=== PATIENT | female | born 1990 | race Caucasian/White ===

== ENCOUNTER 2021-04-19 17:51 | Emergency (ER) | payer OTHER, SELFPAY ==
[2021-04-19 17:57] VITALS: BP 137/49; PULSE 106; RESP 20; TEMP 37.1; O2SAT 96; BMI 17.4
== END 2021-04-19 21:00 | disposition left against medical advice (07) ==
PROVIDERS: Emergency Provider Emergency Medicine; PCP Pediatrics
DX: F10.129 Alcohol abuse with intoxication, unspecified (principal)
CPT/HCPCS: 99281; 99282

== ENCOUNTER 2021-04-21 10:34 | Emergency (ER) | payer OTHER, SELFPAY ==
[2021-04-21 10:53] VITALS: BP 140/71; PULSE 118; RESP 16; O2SAT 96; BMI 17.4
--- NOTE | 2021-04-21 11:04 | ED.ALCOHOL ---
HPI - Alcohol General Chief Complaint: General Medical Stated Complaint: ETOH Time Seen by Provider: 04/21/21 11:00 Source: patient Mode of arrival: ambulatory Limitations: no limitations History of Present Illness MD complaint: alcohol withdrawal, alcohol dependence and desires rehab Last drink: Hours (ago) Chronic alcohol use: Yes Previous visits for alcohol intoxication: Yes Recent trauma: No Associated symptoms: nausea and tremors Treatments prior to arrival: none Related Data Allergies Allergy/AdvReac Type Severity Reaction Status Date / Time No Known Allergies Allergy Unverified 07/18/20 17:35 Review of Systems Review of Systems: Constitutional : No Weight loss, No Fever, No Chills, No Fatigue, No Malaise ENT/Mouth : No sore throat, No Rhinorrhea Eyes: No Eye Pain, No Swelling, No Redness Cardiovascular : No Chest Pain, No SOB, No Dyspnea on Exertion, No Orthopnea, No Edema, No Palpitations Respiratory : No Cough, No Sputum, No Wheezing Gastrointestinal : pos Nausea, No Vomiting, No Diarrhea, No Constipation, No abdominal Pain, No Hematochezia, No Melena Genitourinary : No Dysuria, No Urinary Frequency, No Hematuria, Musculoskeletal : No joint pain, No Myalgias, No Joint Swelling Skin : No Skin Lesions, No rash Neuro : No Weakness, No Numbness, No Dizziness, No Headache Psych : pos Anxiety/Panic, No Depression Heme/Lymph: No Bruising, No Bleeding,No Lymphadenopathy Endocrine : No Polyuria, No Polydipsia All other systems reviewed and are negative PMFSH Past Medical History Attestation statement: The following information was validated with the patient. Medical History Alcoholism Depression Withdrawal seizures Social History Social History (Updated 04/21/21 @ 11:11 by Christy Knight DO) Alcohol intake: current Patient Tobacco Use Status: Never used Tobacco Advance Directives: No Advance Directives Information Provided: No Patient : No Physical Exam Vital Signs: Vital Signs: Last Vital Signs Pulse 118 H 04/21/21 10:53 Resp 16 04/21/21 10:53 BP 140/71 H 04/21/21 10:53 Pulse Ox 96 04/21/21 10:53 Body Mass Index 17.4 Appearance: Alert. Oriented X3. No acute distress. Anxious Eyes: Pupils equal, round and reactive to light. ENT: Pharynx normal. Neck: Normal inspection. Neck supple. CVS: tachcyardic heart rate and rhythm. Pulses normal. Respiratory: No respiratory distress. Breath sounds normal. Abdomen: Soft and non-tender. Skin: Skin warm and dry. Normal skin color. Normal skin turgor. Extremities: No lower extremity edema. No calf ttp Neuro: Oriented X 3. No motor deficit. No sensory deficit. slight tremor noted Course Course Course Narrative: [facility] team MDM - Alcohol MDM Narrative Medical decision making narrative: 30 yo female here with concern for ETOH withdrawal state she drank recently but feels nauseated and tremulous she wants to go to detox, tried to call without good results, at this time will need labs, IVF, IV ativan, will ask recovery coaches to aid her in her search Lab Data Result diagrams: 04/21/21 11:23 04/21/21 11:23 Labs: Lab Results 04/21/21 04/21/21 04/21/21 Range/Units 11:23 11:23 11:23 WBC 4.9 (4.8-10.8) X10*3/uL RBC 4.87 (4.20-5.50) X10*6/uL Hgb 14.8 (12.0-16.0) g/dl Hct 42.6 (37-47) % MCV 87.5 (80-98) fL MCH 30.4 (27.0-33.0) pg MCHC 34.7 (31.0-35.0) g/dl RDW 14.9 (11.0-16.0) % Plt Count 332 (160-400) X10*3/uL MPV 9.0 L (9.4-12.3) fL Immature Gran % (Auto) 0.0 (0.0-0.4) % Neut % (Auto) 35.3 L (45-73) % Lymph % (Auto) 54.4 H (20-40) % [place] % (Auto) 9.3 (2-11) % Eos % (Auto) 0.4 (0-4) % Baso % (Auto) 0.6 (0-2) % Lymph # (Auto) 2.7 (1.2-4.9) X10*3/uL [place] # (Auto) 0.5 (0.1-1.2) X10*3/uL Eos # (Auto) 0.0 (0.0-0.4) X10*3/uL Baso # (Auto) 0.0 (0.0-0.2) X10*3/uL Abs Immat Gran (auto) 0.00 (0.00-0.03) X10*3/uL Absolute Neuts (auto) 1.7 L (2.0-8.3) X10*3/uL Absolute Nucleated RBC 0.000 (0.0-0.012) X10*3/uL Nucleated RBC % (auto) 0.0 (0.0-0.2) /100WBC Sodium 141 (135-145) mmol/L Potassium 3.4 (3.3-5.1) mmol/L Chloride 110 H (96-108) mmol/L Carbon Dioxide 20 L (22-29) mmol/L Anion Gap 14 (12-20) BUN 8 L (9-16) mg/dL Creatinine 0.53 (0.5-1.4) mg/dL Estim Creat Clear Calc 116.6 Estimated GFR > 60 Random Glucose 81 (60-115) mg/dL Calcium 7.6 L (8.4-10.2) mg/dL Magnesium 1.6 (1.6-2.6) mg/dL Total Bilirubin 0.4 (0.0-1.0) mg/dL Direct Bilirubin 0.2 (0.0-0.5) mg/dL AST 32 H (5-31) U/L ALT 25 (0-31) U/L Alkaline Phosphatase 75 (39-117) U/L Total Protein 6.6 (6.5-8.0) g/dL Albumin 3.6 (3.5-5.0) g/dL Ethyl Alcohol 377 H* mg/dL Discharge Plan Discharge Clinical Impression: Alcohol intoxication Patient Disposition: Home, Self-Care Instructions: Abuse of Alcohol (ED) Additional Instructions: return to ED for any worsening symptoms or concerns please go to detox Stand Alone Forms: Work/School Release
[2021-04-21 11:27] LABS: MANUAL DIFF FLAG NO
[2021-04-21 11:29] LABS: Basophils Percent Auto 0.6 % (0-2); Eosinophils Percent Auto 0.4 % (0-4); Hematocrit 42.6 % (37-47); Hemoglobin 14.8 g/dl (12.0-16.0); Lymphocytes Absolute Auto 2.7 X10*3/uL (1.2-4.9); Lymphocytes Percent Auto 54.4 % (20-40); Mean Corpuscular HGB Conc 34.7 g/dl (31.0-35.0); Mean Corpuscular Hemoglobin 30.4 pg (27.0-33.0); Mean Corpuscular Volume 87.5 fL (80-98); Monocytes Absolute Auto 0.5 X10*3/uL (0.1-1.2); Monocytes Percent Auto 9.3 % (2-11); Neutrophils Absolute Auto 1.7 X10*3/uL (2.0-8.3); Neutrophils Percent Auto 35.3 % (45-73); Platelet Count 332 X10*3/uL (160-400); Red Blood Count 4.87 X10*6/uL (4.20-5.50); Red Cell Distribution Width 14.9 % (11.0-16.0); White Blood Count 4.9 X10*3/uL (4.8-10.8)
[2021-04-21] MEDS: 0.9 % Sodium Chloride 1,000 ML 999 ML IVCONT (11:30)
[2021-04-21] MEDS: ondansetron HCL 4 MG/2 ML VIAL IVPUSH (11:30)
[2021-04-21] MEDS: Magnesium Sulfate/H2O 2 GM/50 ML PIGGYBACK IV (11:30)
[2021-04-21] MEDS: LORazepam 2 MG/ML VIAL 1 MG IVPUSH (11:31)
[2021-04-21] MEDS: Thiamine HCL 200 MG/2 ML VIAL 100 MG IVPUSH (11:31)
[2021-04-21] MEDS: chlordiazePOXIDE HCl 25 MG CAPSULE 50 MG PO (11:31)
[2021-04-21 11:59] LABS: Ethanol 377 mg/dL
[2021-04-21 12:00] LABS: Alanine Aminotransferase 25 U/L (0-31); Albumin Level 3.6 g/dL (3.5-5.0); Alkaline Phosphatase 75 U/L (39-117); Anion Gap 14 (12-20); Aspartate Amino Transferase 32 U/L (5-31); Bilirubin Direct 0.2 mg/dL (0.0-0.5); Bilirubin Total 0.4 mg/dL (0.0-1.0); Blood Urea Nitrogen 8 mg/dL (9-16); Calcium 7.6 mg/dL (8.4-10.2); Carbon Dioxide 20 mmol/L (22-29); Chloride 110 mmol/L (96-108); Creatinine Clr Calc Pharmacy 116.6; Estimated Glomerular Filt Rate > 60; Glucose Random 81 mg/dL (60-115); Magnesium 1.6 mg/dL (1.6-2.6); Potassium 3.4 mmol/L (3.3-5.1); Sodium 141 mmol/L (135-145); Total Protein 6.6 g/dL (6.5-8.0)
[2021-04-21] MEDS: Ketorolac Tromethamine 30 MG/ML VIAL IVPUSH (13:53)
--- NOTE | 2021-04-21 14:41 | MHC.RECOVSUP ---
Recovery Support note: Patient is a 30 year old Chilean speaking female who presented to [facility] ED seeking detox for alcohol use. This account underwriter met with patient to discuss recovery and treatment options. Patient reports daily drinking and a history of withdrawal seizures. Patient reports that she wants to be able to make it to her daughter's birthday on Wednesday and that she does not want to remain in treatment for an extended period of time. Patient has been to [facility] and [facility] in the past for detox. Patient has a preference for [facility]. Recovery Team was unable to secure a bed at [facility], they instructed patient to present as a walk-in tomorrow morning. Patient was ultimately willing to go further for detox as there were now local beds available. Patient was referred and accepted to [facility] for detox. Patient has completed the intake and is currently waiting for her father to pick her up and transport her to the facility. Discussed case with patient's RN and ED provider.
[2021-04-21 15:17] VITALS: BP 98/56; PULSE 92; RESP 14; TEMP 36.9; O2SAT 96
== END 2021-04-21 15:40 | disposition home or self-care (01) ==
PROVIDERS: Emergency Provider Emergency Medicine; PCP Pediatrics
DX: F10.229 Alcohol dependence with intoxication, unspecified (principal); Y90.8 Blood alcohol level of 240 mg/100 ml or more
CPT/HCPCS: 36415; 80048; 80076; 82077; 83735; 85025; 96361; 96365; 96366; 96375; 99284; J1885; J2060; J2405; J3411; J3475

== ENCOUNTER 2022-12-25 12:47 | Emergency (ER) | payer OTHER, SELFPAY ==
[2022-12-25 13:03] VITALS: BP 147/86; PULSE 125; RESP 20; TEMP 36.8; O2SAT 96; BMI 19.6
--- NOTE | 2022-12-25 13:08 | ED_ITS ---
HPI - Alcohol General Chief Complaint: ETOH/Substance Use <RAFAEL Ramos - Last Filed: 12/25/22 17:35> Stated Complaint: ETOH withdrawal per EMS <RAFAEL Ramos - Last Filed: 12/25/22 17:35> Time Seen by Provider: 12/25/22 13:08 <RAFAEL Ramos - Last Filed: 12/25/22 17:35> Source: patient, family and EMS <RAFAEL Ramos - Last Filed: 12/25/22 17:35> Mode of arrival: EMS <RAFAEL Ramos - Last Filed: 12/25/22 17:35> Limitations: no limitations <RAFAEL Ramos - Last Filed: 12/25/22 17:35> History of Present Illness HPI narrative: 32-year-old female with history of alcohol use disorder, history of alcohol withdrawal seizures who presents to the ER for evaluation of possible alcohol withdrawal. She last drank this morning. She has been bingeing. She states her alcohol intake varies, she prefers 100 proof vodka and her in can take can vary from 1 or 2 drinks to two sleeves of nips per day. She has been to detox many times. She has been drinking heavily lately. Minimal PO intake x4 days except alcohol per friend at the bedside. <RAFAEL Ramos - Last Filed: 12/25/22 17:35> MD complaint: alcohol intoxication and alcohol withdrawal <RAFAEL Ramos - Last Filed: 12/25/22 17:35> Last drink: Hours (ago) <RAFAEL Ramos - Last Filed: 12/25/22 17:35> Chronic alcohol use: Yes <RAFAEL Ramos - Last Filed: 12/25/22 17:35> Previous visits for alcohol intoxication: Yes <RAFAEL Ramos - Last Filed: 12/25/22 17:35> Associated symptoms: nausea and vomiting <RAFAEL Ramos - Last Filed: 12/25/22 17:35> Treatments prior to arrival: none <RAFAEL Ramos - Last Filed: 12/25/22 17:35> Related Data Allergies/Adverse Reactions: Allergies Allergy/AdvReac Type Severity Reaction Status Date / Time No Known Allergies Allergy Unverified 07/18/20 17:35 <RAFAEL Ramos - Last Filed: 12/25/22 17:35> Review of Systems Review of Systems: Yes all other systems are reviewed and are negative <RAFAEL Ramos - Last Filed: 12/25/22 17:35> [facility] Past Medical History Medical History: Medical History Alcoholism Depression Withdrawal seizures <RAFAEL Ramos - Last Filed: 12/25/22 17:35> Social History Social History: Social History (Updated 04/21/21 @ 11:11 by Citlalli Knight DO) Alcohol intake: current Patient Tobacco Use Status: Never used Tobacco Advance Directives: No Advance Directives Information Provided: Yes <RAFAEL Ramos - Last Filed: 12/25/22 17:35> Physical Exam ED Vital Signs: Vital Signs - 24 hr 12/25/22 13:03 12/25/22 13:14 12/25/22 17:01 Temperature 98.2 F 97.9 F Pulse Rate 125 H 113 H Respiratory Rate 20 17 Blood Pressure 147/86 H 138/88 129/80 Pulse Oximetry 96 97 Oxygen Delivery Method Room Air Room Air 12/25/22 19:32 Temperature 99.0 F Pulse Rate 112 H Respiratory Rate 17 Blood Pressure 116/71 Pulse Oximetry 96 Oxygen Delivery Method Room Air BMI result Body Mass Index 19.6 <RAFAEL Ramos - Last Filed: 12/25/22 17:35> Vital Signs - 24 hr 12/25/22 13:03 12/25/22 13:14 12/25/22 17:01 Temperature 98.2 F 97.9 F Pulse Rate 125 H 113 H Respiratory Rate 20 17 Blood Pressure 147/86 H 138/88 129/80 Pulse Oximetry 96 97 Oxygen Delivery Method Room Air Room Air 12/25/22 19:32 Temperature 99.0 F Pulse Rate 112 H Respiratory Rate 17 Blood Pressure 116/71 Pulse Oximetry 96 Oxygen Delivery Method Room Air BMI result Body Mass Index 19.6 <RAFAEL Paniagua - Last Filed: 12/25/22 20:43> Appearance: Alert. Oriented X3. No acute distress. Eyes: Pupils equal, round and reactive to light. ENT: Pharynx normal. Neck: Normal inspection. Neck supple. CVS: tachycardic, HR 110, regular rhythm Pulses normal. Respiratory: No respiratory distress. Breath sounds normal. Abdomen: Soft and nontender. +BS x4 Skin: Skin warm and dry. Normal skin color. Normal skin turgor. No rashes. Extremities: No lower extremity edema. Neuro: Oriented X 3. No motor deficit. No sensory deficit. No tremors <RAFAEL Ramos - Last Filed: 12/25/22 17:35> Course Course Course Narrative: 32 yo female presenting with ETOH intoxication, concern for impending withdrawal. Anxious. HR 110. CIWA 13 on arrival but has ETOH on board so most likely anxiety driven. PO ativan ordered. labs pending. Will reassess <RAFAEL Ramos - Last Filed: 12/25/22 17:35> Reevaluation(s) Reevaluation #1: pt more calm, CIWA improved to 4 Smita from the recovered he met with the patient. [facility] has been contacted and message was left. The excellence coach this evening is to follow up for possible detox placement. Will continue monitor see was acute for and monitor for possible further alcohol withdrawal. Lab workup was unremarkable, aside from mild hypomagnesemia which was repleted IV. No liver abnormalities. Will place patient and physician observation at this time. Physician observation started at 17:32. Patient placed in physician observation because patient is awaiting possible detox placement. At the time observation was started patient's vital signs were stable. Patient is alert and oriented. Neuro exam is non-focal. CV: RRR and lungs are clear. Will continue to monitor. <RAFAEL Ramos - Last Filed: 12/25/22 17:35> Reevaluation #2: CIWA score of 10, I discussed admission with patient, patient adamantly refusing hospital admission. I also offered her detox. Patient spoke to excellence coach is, there are no beds at [facility], patient refusing to stay overnight, tells me she has had alcohol withdrawal seizures and she would like to go home and sleep she tells me she knows had fix the problem in case she starts feeling like she is withdrawing. I do not feel comfortable discharging this patient home on Librium as she will likely drink at home and she states she knows how to fix the problem if she feels like she is going to withdrawal. They tell me that they will drive to [place] for detox tomorrow morning. Mikel at the bedside states that he would like to go home therefore patient also states she would like to go home. I had a long conversation with him about risks versus benefits, they understand and verbalize all risks. Denies SI and HI. My goal was to admit patient to hospital for acute alcohol withdrawal due to see wall scores, tachycardia, unstable gait. Patient refusing will sign out against medical advice. <RAFAEL Paniagua - Last Filed: 12/25/22 20:43> Time: 20:43 <RAFAEL Paniagua - Last Filed: 12/25/22 20:43> Medical Decision Making Medical Decision Making [facility] Narrative: 32-year-old female presents to the ER for evaluation of possible alcohol withdrawal. She admits to drinking alcohol today. Doubt acute withdrawal. Most likely acute alcohol intoxication with superimposed anxiety. She denies any SI or HI. Denies any other substance use, aside from audible marijuana. Lab workup showing magnesium 1.4. Alcohol 279 Recovery team met with the patient. Will plan to place to detox if possible. <RAFAEL Ramos - Last Filed: 12/25/22 17:35> Differential Diagnosis Differential Diagnoses: The differential diagnosis associated with the presentation includes <RAFAEL Ramos - Last Filed: 12/25/22 17:35> Acute alcohol intoxication, acute alcohol withdrawal, polysubstance use, anxiety attack, panic, acute psychosis, gastritis, gastroenteritis <RAFAEL Ramos Last Filed: 12/25/22 17:35> Admission/Observation Consideration of admission/observation: Escalation of care including admission/observation considered <RAFAEL Ramos Last Filed: 12/25/22 17:35> Placed in physician observation for monitoring of possible withdrawal. If withdrawal increases or worsens may require phenobarbital on admission. <RAFAEL Ramos Last Filed: 12/25/22 17:35> Lab Data [facility] Lab Attestation statement: I reviewed the patient's lab results. <RAFAEL Ramos Last Filed: 12/25/22 17:35> Result Diagrams: 12/25/22 13:49 12/25/22 13:49 <RAFAEL Ramos - Last Filed: 12/25/22 17:35> Labs: Lab Results 12/25/22 12/25/22 12/25/22 Range/Units 13:49 13:49 13:49 WBC 11.1 H (4.8-10.8) X10*3/uL RBC 4.41 (4.20-5.50) X10*6/uL Hgb 13.2 (12.0-16.0) g/dl Hct 38.2 (37.0-47.0) % MCV 86.6 (80.0-98.0) fL MCH 29.9 (27.0-33.0) pg MCHC 34.6 (31.0-35.0) g/dl RDW 14.0 (11.0-16.0) % Plt Count 252 (160-400) X10*3/uL MPV 8.8 L (9.4-12.3) fL Immature Gran % (Auto) 0.5 H (0.0-0.4) % Neut % (Auto) 92.2 H (45-73) % Lymph % (Auto) 4.6 L (20-40) % [place] % (Auto) 2.4 (2-11) % Eos % (Auto) 0.0 (0-4) % Baso % (Auto) 0.3 (0-2) % Lymph # (Auto) 0.5 L (1.2-4.9) X10*3/uL [place] # (Auto) 0.3 (0.1-1.2) X10*3/uL Eos # (Auto) 0.0 (0.0-0.4) X10*3/uL Baso # (Auto) 0.0 (0.0-0.2) X10*3/uL Abs Immat Gran (auto) 0.06 H (0.00-0.03) X10*3/uL Absolute Neuts (auto) 10.2 H (2.0-8.3) x10*3/uL Absolute Nucleated RBC 0.000 (0.0-0.012) X10*3/uL Nucleated RBC % (auto) 0.0 (0.0-0.2) /100WBC Smear Tech's Comments VERIFIED Sodium 144 (135-145) mmol/L Potassium 3.4 (3.3-5.1) mmol/L Chloride 102 (96-108) mmol/L Carbon Dioxide 22 (22-29) mmol/L Anion Gap 23 H (12-20) BUN 10 (9-16) mg/dL Creatinine 0.73 (0.5-1.4) mg/dL Estim Creat Clear Calc 93.4 Estimated GFR > 60 Random Glucose 123 H (60-115) mg/dL Calcium 8.5 D (8.4-10.2) mg/dL Magnesium 1.4 L* (1.6-2.6) mg/dL Total Bilirubin 0.9 (0.0-1.0) mg/dL Direct Bilirubin 0.3 (0.0-0.5) mg/dL AST 28 (5-31) U/L ALT 13 (0-31) U/L Alkaline Phosphatase 96 (39-117) U/L Total Protein 7.8 (6.5-8.0) g/dL Albumin 4.2 (3.5-5.0) g/dL Ethyl Alcohol mg/dL COVID-19 (RACHAEL) Negative (Negative) COVID-19 Clin Com See Note 12/25/22 Range/Units 13:49 WBC (4.8-10.8) X10*3/uL RBC (4.20-5.50) X10*6/uL Hgb (12.0-16.0) g/dl Hct (37.0-47.0) % MCV (80.0-98.0) fL MCH (27.0-33.0) pg MCHC (31.0-35.0) g/dl RDW (11.0-16.0) % Plt Count (160-400) X10*3/uL MPV (9.4-12.3) fL Immature Gran % (Auto) (0.0-0.4) % Neut % (Auto) (45-73) % Lymph % (Auto) (20-40) % [place] % (Auto) (2-11) % Eos % (Auto) (0-4) % Baso % (Auto) (0-2) % Lymph # (Auto) (1.2-4.9) X10*3/uL [place] # (Auto) (0.1-1.2) X10*3/uL Eos # (Auto) (0.0-0.4) X10*3/uL Baso # (Auto) (0.0-0.2) X10*3/uL Abs Immat Gran (auto) (0.00-0.03) X10*3/uL Absolute Neuts (auto) (2.0-8.3) x10*3/uL Absolute Nucleated RBC (0.0-0.012) X10*3/uL Nucleated RBC % (auto) (0.0-0.2) /100WBC Smear Tech's Comments Sodium (135-145) mmol/L Potassium (3.3-5.1) mmol/L Chloride (96-108) mmol/L Carbon Dioxide (22-29) mmol/L Anion Gap (12-20) BUN (9-16) mg/dL Creatinine (0.5-1.4) mg/dL Estim Creat Clear Calc Estimated GFR Random Glucose (60-115) mg/dL Calcium (8.4-10.2) mg/dL Magnesium (1.6-2.6) mg/dL Total Bilirubin (0.0-1.0) mg/dL Direct Bilirubin (0.0-0.5) mg/dL AST (5-31) U/L ALT (0-31) U/L Alkaline Phosphatase (39-117) U/L Total Protein (6.5-8.0) g/dL Albumin (3.5-5.0) g/dL Ethyl Alcohol 279 mg/dL COVID-19 (RACHAEL) (Negative) COVID-19 Clin Com <RAFAEL Ramos - Last Filed: 12/25/22 17:35> Lab Results 12/25/22 12/25/22 12/25/22 Range/Units 13:49 13:49 13:49 WBC 11.1 H (4.8-10.8) X10*3/uL RBC 4.41 (4.20-5.50) X10*6/uL Hgb 13.2 (12.0-16.0) g/dl Hct 38.2 (37.0-47.0) % MCV 86.6 (80.0-98.0) fL MCH 29.9 (27.0-33.0) pg MCHC 34.6 (31.0-35.0) g/dl RDW 14.0 (11.0-16.0) % Plt Count 252 (160-400) X10*3/uL MPV 8.8 L (9.4-12.3) fL Immature Gran % (Auto) 0.5 H (0.0-0.4) % Neut % (Auto) 92.2 H (45-73) % Lymph % (Auto) 4.6 L (20-40) % [place] % (Auto) 2.4 (2-11) % Eos % (Auto) 0.0 (0-4) % Baso % (Auto) 0.3 (0-2) % Lymph # (Auto) 0.5 L (1.2-4.9) X10*3/uL [place] # (Auto) 0.3 (0.1-1.2) X10*3/uL Eos # (Auto) 0.0 (0.0-0.4) X10*3/uL Baso # (Auto) 0.0 (0.0-0.2) X10*3/uL Abs Immat Gran (auto) 0.06 H (0.00-0.03) X10*3/uL Absolute Neuts (auto) 10.2 H (2.0-8.3) x10*3/uL Absolute Nucleated RBC 0.000 (0.0-0.012) X10*3/uL Nucleated RBC % (auto) 0.0 (0.0-0.2) /100WBC Smear Tech's Comments VERIFIED Sodium 144 (135-145) mmol/L Potassium 3.4 (3.3-5.1) mmol/L Chloride 102 (96-108) mmol/L Carbon Dioxide 22 (22-29) mmol/L Anion Gap 23 H (12-20) BUN 10 (9-16) mg/dL Creatinine 0.73 (0.5-1.4) mg/dL Estim Creat Clear Calc 93.4 Estimated GFR > 60 Random Glucose 123 H (60-115) mg/dL Calcium 8.5 D (8.4-10.2) mg/dL Magnesium 1.4 L* (1.6-2.6) mg/dL Total Bilirubin 0.9 (0.0-1.0) mg/dL Direct Bilirubin 0.3 (0.0-0.5) mg/dL AST 28 (5-31) U/L ALT 13 (0-31) U/L Alkaline Phosphatase 96 (39-117) U/L Total Protein 7.8 (6.5-8.0) g/dL Albumin 4.2 (3.5-5.0) g/dL Ethyl Alcohol mg/dL COVID-19 (RACHAEL) Negative (Negative) COVID-19 Clin Com See Note 12/25/22 Range/Units 13:49 WBC (4.8-10.8) X10*3/uL RBC (4.20-5.50) X10*6/uL Hgb (12.0-16.0) g/dl Hct (37.0-47.0) % MCV (80.0-98.0) fL MCH (27.0-33.0) pg MCHC (31.0-35.0) g/dl RDW (11.0-16.0) % Plt Count (160-400) X10*3/uL MPV (9.4-12.3) fL Immature Gran % (Auto) (0.0-0.4) % Neut % (Auto) (45-73) % Lymph % (Auto) (20-40) % [place] % (Auto) (2-11) % Eos % (Auto) (0-4) % Baso % (Auto) (0-2) % Lymph # (Auto) (1.2-4.9) X10*3/uL [place] # (Auto) (0.1-1.2) X10*3/uL Eos # (Auto) (0.0-0.4) X10*3/uL Baso # (Auto) (0.0-0.2) X10*3/uL Abs Immat Gran (auto) (0.00-0.03) X10*3/uL Absolute Neuts (auto) (2.0-8.3) x10*3/uL Absolute Nucleated RBC (0.0-0.012) X10*3/uL Nucleated RBC % (auto) (0.0-0.2) /100WBC Smear Tech's Comments Sodium (135-145) mmol/L Potassium (3.3-5.1) mmol/L Chloride (96-108) mmol/L Carbon Dioxide (22-29) mmol/L Anion Gap (12-20) BUN (9-16) mg/dL Creatinine (0.5-1.4) mg/dL Estim Creat Clear Calc Estimated GFR Random Glucose (60-115) mg/dL Calcium (8.4-10.2) mg/dL Magnesium (1.6-2.6) mg/dL Total Bilirubin (0.0-1.0) mg/dL Direct Bilirubin (0.0-0.5) mg/dL AST (5-31) U/L ALT (0-31) U/L Alkaline Phosphatase (39-117) U/L Total Protein (6.5-8.0) g/dL Albumin (3.5-5.0) g/dL Ethyl Alcohol 279 mg/dL COVID-19 (RACHAEL) (Negative) COVID-19 Clin Com <RAFAEL Paniagua - Last Filed: 12/25/22 20:43> Independent Historian Clinical information obtained from an independent historian. History obtained from or confirmed by: Friend <RAFAEL Ramos - Last Filed: 12/25/22 17:35> External Record Review External record reviewed: Outpatient record and Prior outpatient labs <RAFAEL Ramos - Last Filed: 12/25/22 17:35> Prescription Management I considered prescription management with: Other (Anxiolytics) <RAFAEL Ramos - Last Filed: 12/25/22 17:35> Chronic Conditions Patient?s care impacted by: Other (Alcohol use disorder) <RAFAEL Ramos Last Filed: 12/25/22 17:35> Medications Administered Discontinued Medications Generic Name Dose Route Start Last Admin Trade Name Freq PRN Reason Stop Dose Admin Sodium Chloride 1,000 mls @ 999 mls/hr 12/25/22 13:15 12/25/22 14:13 Ns IVCONT 12/25/22 14:15 Infused .Q1H1M ARTURO Infusion Magnesium Sulfate 2 gm in 50 mls @ 25 mls/hr 12/25/22 14:42 12/25/22 16:52 Magnesium Sulfate/H2o IV 12/25/22 16:41 Infused ONCE ONE Infusion Lorazepam 2 mg 12/25/22 13:08 12/25/22 13:13 Lorazepam 2 Mg/Ml Vial IVPUSH 12/25/22 13:09 2 mg ONCE ONE Administration Lorazepam 1 mg 12/25/22 17:44 12/25/22 17:56 Lorazepam 2 Mg/Ml Vial IVPUSH 12/25/22 17:45 1 mg ONCE ONE Administration <RAFAEL Ramos - Last Filed: 12/25/22 17:35> Medications Administered Discontinued Medications Generic Name Dose Route Start Last Admin Trade Name Chanduq PRN Reason Stop Dose Admin Sodium Chloride 1,000 mls @ 999 mls/hr 12/25/22 13:15 12/25/22 14:13 Ns IVCONT 12/25/22 14:15 Infused .Q1H1M ARTURO Infusion Magnesium Sulfate 2 gm in 50 mls @ 25 mls/hr 12/25/22 14:42 12/25/22 16:52 Magnesium Sulfate/H2o IV 12/25/22 16:41 Infused ONCE ONE Infusion Lorazepam 2 mg 12/25/22 13:08 12/25/22 13:13 Lorazepam 2 Mg/Ml Vial IVPUSH 12/25/22 13:09 2 mg ONCE ONE Administration Lorazepam 1 mg 12/25/22 17:44 12/25/22 17:56 Lorazepam 2 Mg/Ml Vial IVPUSH 12/25/22 17:45 1 mg ONCE ONE Administration <RAFAEL Panaigua - Last Filed: 12/25/22 20:43> Discharge Plan Discharge Clinical Impression: Alcoholic intoxication, Left against medical advice <RAFAEL Ramos - Last Filed: 12/25/22 17:35> Patient Disposition: Home, Self-Care <RAFAEL Ramos - Last Filed: 12/25/22 17:35> Instructions: Alcohol Intoxication (ED), Alcohol Withdrawal (ED), Alcohol Use Disorder (ED), Abuse of Alcohol (ED), Against Medical Advice (ED) <RAFAEL Ramos - Last Filed: 12/25/22 17:35> Additional Instructions: Take your medications as prescribed. If you were prescribed antibiotics today, it is important that you take your medication to their entirety, do not skip any doses, do not finish them early. Follow-up with your primary care provider this week. Return to the emergency department with new or worsening symptoms. Such as fevers, chills, chest pain, shortness of breath, nausea, vomiting, dizziness, headache, vision changes, lethargy In case of emergency call 911 We offered you detox, and hospital admission for acute alcohol withdrawal. You refused. Alcohol withdrawal seizures can be very dangerous. Complications include seizures, altered mental status, . He signed out against medical advice, please return if you change your mind <RAFAEL Ramos - Last Filed: 12/25/22 17:35> Referrals: Physician,Unknown J [Primary Care Provider] - 2 days <RAFAEL Ramos - Last Filed: 12/25/22 17:35> Stand Alone Forms: Work/School Release, Against Medical Advice <RAFAEL Ramos - Last Filed: 12/25/22 17:35> Interventions: [place]-Suicide Risk Severity Scale Last Done: 12/25/22 19:33 <RAFAEL Ramos - Last Filed: 12/25/22 17:35>
[2022-12-25] MEDS: LORazepam 2 MG/ML VIAL IVPUSH (13:13)
[2022-12-25] MEDS: 0.9 % Sodium Chloride 1,000 ML 999 ML IVCONT (13:13)
[2022-12-25 13:14] VITALS: BP 138/88
[2022-12-25 14:26] LABS: COVID-19 Test Negative (Negative); Ethanol 279 mg/dL; IDNOW Serial# 9DB6401D
[2022-12-25 14:40] LABS: Alanine Aminotransferase 13 U/L (0-31); Albumin Level 4.2 g/dL (3.5-5.0); Alkaline Phosphatase 96 U/L (39-117); Aspartate Amino Transferase 28 U/L (5-31); Bilirubin Direct 0.3 mg/dL (0.0-0.5); Bilirubin Total 0.9 mg/dL (0.0-1.0); Blood Urea Nitrogen 10 mg/dL (9-16); Calcium 8.5 mg/dL (8.4-10.2); Creatinine Clr Calc Pharmacy 93.4; Estimated Glomerular Filt Rate > 60; Glucose Random 123 mg/dL (60-115); Total Protein 7.8 g/dL (6.5-8.0)
[2022-12-25 14:43] LABS: Magnesium 1.4 mg/dL (1.6-2.6)
[2022-12-25 14:49] LABS: Anion Gap 23 (12-20); Carbon Dioxide 22 mmol/L (22-29); Chloride 102 mmol/L (96-108); Potassium 3.4 mmol/L (3.3-5.1); Sodium 144 mmol/L (135-145)
[2022-12-25] MEDS: Magnesium Sulfate/H2O 2 GM/50 ML PIGGYBACK IV (14:54)
--- NOTE | 2022-12-25 14:58 | PC.NURSE ---
marsha sent to [facility] to discuss detox
[2022-12-25 15:19] LABS: Basophils Percent Auto 0.3 % (0-2); Hematocrit 38.2 % (37.0-47.0); Hemoglobin 13.2 g/dl (12.0-16.0); Imm Gran Abs Auto 0.06 X10*3/uL (0.00-0.03); Imm Gran Pct Auto 0.5 % (0.0-0.4); Lymphocytes Absolute Auto 0.5 X10*3/uL (1.2-4.9); Lymphocytes Percent Auto 4.6 % (20-40); MANUAL DIFF FLAG SCAN; Mean Corpuscular HGB Conc 34.6 g/dl (31.0-35.0); Mean Corpuscular Hemoglobin 29.9 pg (27.0-33.0); Mean Corpuscular Volume 86.6 fL (80.0-98.0); Mean Platelet Volume 8.8 fL (9.4-12.3); Monocytes Absolute Auto 0.3 X10*3/uL (0.1-1.2); Monocytes Percent Auto 2.4 % (2-11); Neutrophils Absolute Auto 10.2 x10*3/uL (2.0-8.3); Neutrophils Percent Auto 92.2 % (45-73); Platelet Count 252 X10*3/uL (160-400); Red Blood Count 4.41 X10*6/uL (4.20-5.50); SCAN SMEAR FLAG 1; White Blood Count 11.1 X10*3/uL (4.8-10.8)
[2022-12-25 15:43] LABS: SLIDE REVIEW VERIFIED
--- NOTE | 2022-12-25 16:29 | MHC.RECOVRN ---
Briefly met with pt in [facility] to discuss alcohol use and desire for treatment. Pt reports drinking 5-10 nips 100 proof alcohol daily. Last drink 5AM, 1 nip. Denies other substances. Currently experiencing withdrawal and is open to ATS. Pt has been to numerous facilities in the past, prefers [facility]. T/w attempted MV, left message. public speaking coach to follow up.
[2022-12-25 17:01] VITALS: BP 129/80; PULSE 113; RESP 17; TEMP 36.6; O2SAT 97
[2022-12-25] MEDS: LORazepam 2 MG/ML VIAL 1 MG IVPUSH (17:56)
--- NOTE | 2022-12-25 18:16 | PC.NURSE ---
recovery calling [facility]
--- NOTE | 2022-12-25 19:03 | MHC.RECOVSUP ---
? Reason for consult:ETOH o? Current location:ED06? o? Identified substance use concern:? -? Withdrawal -? Seeking ATS (detox) -? Support ? Intervention: o? ATS bed search started/completed/in process o? Community resources provided o? Harm reduction discussion ? Plan: o? Follow up tomorrow? ? Additional information:KARLIE met with pt and discussed ATS treatment. RC called Johanny Issa multiple times, but no one answered the phone. Pt stated she wants to go home to see her daughter, and pack a bag for ATS and is going to try tomorrow. KARLIE provided pt with recovery resource pamphlets, and business card.
[2022-12-25 19:32] VITALS: BP 116/71; PULSE 112; RESP 17; TEMP 37.2; O2SAT 96
--- NOTE | 2022-12-25 19:33 | PC.NURSE ---
Pt alert and oriented to self, arousable to verbal stimuli. Answers questions appropriate. Resting at the bedside. Boyfriend, Riky, at the bedside. Pt reports my whole body hurts 08/10. Sinus tach on monitor with hr 118. Breaths are even and unlabored with equal chest rise. RR 12, o2 sat 96% RA. Pt met with debt recovery officer and wishes to go home tonight. Will continue to monitor.
--- NOTE | 2022-12-25 20:29 | PC.NURSE ---
Pt is requesting discharge, PA aware.
[2022-12-25] MEDS: LORazepam 1 MG TABLET PO (20:55)
--- NOTE | 2022-12-25 21:57 | PC.NURSE ---
IV line removed. Pt tolerated well. Discharge instructions reviewed with pt. Pt signed AMA forms and verbalizes understanding. Pt able to ambulate with steady gait upon discharge.
== END 2022-12-25 21:58 | disposition home or self-care (01) ==
PROVIDERS: Physician Assistant; Emergency Provider Student in an Organized Health Care Education/Training Program
DX: F10.129 Alcohol abuse with intoxication, unspecified (principal); Y90.8 Blood alcohol level of 240 mg/100 ml or more; Z71.41 Alcohol abuse counseling and surveillance of alcoholic; Z20.822 Contact with and (suspected) exposure to COVID-19; Z20.828 Contact with and (suspected) exposure to other viral communicable diseases; Z79.899 Other long term (current) drug therapy
CPT/HCPCS: 36415; 80048; 80076; 82077; 83735; 85025; 87635; 96361; 96365; 96375; 96376; 99284; 99285; J2060; J3475

== ENCOUNTER 2023-05-21 23:37 | Inpatient (IN) | payer OTHER, SELFPAY ==
[2023-05-21 23:55] VITALS: BP 150/90; BP 153/103; PULSE 127; PULSE 134; RESP 22; TEMP 37.3; O2SAT 96; O2SAT 98; BMI 19.9
[2023-05-22] VITALS (9 sets, daily range): BP systolic 110–141; BP diastolic 58–89; PULSE 84–118; RESP 10–18; TEMP 36.2–37.7; O2SAT 95–98
--- NOTE | 2023-05-22 00:07 | ECG_ITS ---
Test Reason : chest pain Blood Pressure : / mmHG Vent. Rate : 118 BPM Atrial Rate : 118 BPM P-R Int : 130 ms QRS Dur : 088 ms QT Int : 318 ms P-R-T Axes : 078 085 037 degrees QTc Int : 445 ms Sinus tachycardia T wave abnormality, consider inferior ischemia Abnormal ECG When compared with ECG of 26-FEB-2011 05:19, T wave inversion now evident in Inferior leads Referred By: Clifford Souza Electronically Signed By:Luca Harris
[2023-05-22] MEDS: ondansetron HCL 4 MG/2 ML VIAL IVPUSH ×3 (00:22→23:31)
[2023-05-22] MEDS: Thiamine HCL 500 MG in 0.9 % Sodium Chloride 100 ML 210 MG IV (00:24)
[2023-05-22] MEDS: 0.9 % Sodium Chloride 1,000 ML 999 ML IV ×2 (00:28→02:10)
--- NOTE | 2023-05-22 00:46 | ED.GENADULT ---
HPI - General Adult General Chief complaint: ETOH/Substance Use Stated complaint: Alcohol Withdraw Time Seen by Provider: 05/22/23 00:00 Source: patient, RN notes reviewed and old records reviewed Mode of arrival: ambulatory Limitations: no limitations History of Present Illness HPI narrative: 32-year-old female with past medical history significant for glaucoma, alcohol abuse presents for evaluation of ?alcohol withdrawal. ? Patient reports that she started drinking on Wednesday and drank to the point where she passed out drunk She reports that she woke up with the sunburn She has been drinking hips of vodka daily since. She is unable to quantify how much she had to drink Her last drink was a nipple vodka just prior to arrival Patient reports ?my whole body hurts. ? He reports nausea and vomiting as well as shaking Patient reports a history of alcohol withdrawal seizures She also complains of a headache. Patient denies any other drug abuse Related Data Allergies Allergy/AdvReac Type Severity Reaction Status Date / Time Iodinated Contrast Media AdvReac Hives Verified 05/22/23 00:13 [Contrast Dye] Review of Systems Constitutional: Constitutional: Reports chills, Denies fever(s), Reports headache(s) and Reports weakness Eyes: Eyes: Denies blurry vision ENT: Reports headache(s) Cardiovascular: Cardiovascular: Reports chest pain, Reports rapid heart rate and Reports dyspnea Respiratory: Respiratory: Denies cough and Reports dyspnea Gastrointestinal: Gastrointestinal: Reports abdominal pain, Reports nausea and Reports vomiting Musculoskeletal: Musculoskeletal: Reports back pain Integumentary/Breasts: Skin/Breast: Denies erythema and Denies rash Neurologic: Reports headache(s) and Reports weakness PMFSH Past Medical History Medical History Alcoholism Depression Withdrawal seizures Social History Social History (Updated 04/21/21 @ 11:11 by Citlalli Knight DO) Alcohol intake: current Patient Tobacco Use Status: Never used Tobacco Advance Directives: No Advance Directives Information Provided: No Physical Exam ED Vital Signs: Vital Signs - 24 hr 05/21/23 23:55 Temperature 99.2 F Pulse Rate 127 H Respiratory Rate 22 H Blood Pressure 153/103 H Pulse Oximetry 98 Oxygen Delivery Method Room Air BMI result Body Mass Index 19.9 Const General: healthy appearing, alert and awake Nutritional Appearance: well nourished Orientation/consciousness: patient oriented x3 HENMT Head: Yes normocephalic and Yes atraumatic Eyes Eyelids: Yes eyelids normal Conjunctivae: conjunctivae normal Sclerae: sclerae normal Corneas: corneas normal Pupils: Equal, round and reactive pupils present EOM: EOMs intact bilaterally Neck Neck: Yes full ROM Resp Effort & Inspection: normal respiratory effort, able to speak in complete sentences, no audible wheezes and not labored Auscultation: clear to auscultation bilaterally Cardio Rate: tachycardic Rhythm: regular rhythm GI Inspection: No distended Palpation (GI): Soft to palpation, not firm, nontender, no guarding and not rigid Auscultation: normoactive bowel sounds Skin General skin exam: no rashes or lesions noted and elasticity normal Neuro General: patient oriented x3 Cranial nerves: Yes Equal, round and reactive pupils present and Yes Bilaterally intact EOM present Cognition (Neuro): normal cognition Extrem Other: Moving all extremities well without any obvious deformities Course Reevaluation(s) Reevaluation #1: CIWA score of 13 per nursing staff. Time: 00:56 Reevaluation #2: Alcohol resulted showing alcohol level of 329, magnesium 1.4 and a potassium of 2.8. This point she is not actively withdrawing but rather still acutely intoxicated, I canceled the 2nd 2 doses of phenobarbital Time: 02:06 Medications Administered Discontinued Medications Generic Name Dose Route Start Last Admin Trade Name Chanduq PRN Reason Stop Dose Admin Sodium Chloride 1,000 mls @ 999 mls/hr 05/22/23 00:15 05/22/23 01:31 Ns IV 05/22/23 01:15 Infused .Q1H1M ARTURO Infusion Thiamine HCl 500 mg/ Sodium 105 mls @ 210 mls/hr 05/22/23 00:07 05/22/23 01:31 Chloride IV 05/22/23 00:36 Infused ONCE ONE Infusion Folic Acid 1 mg/ Sodium 50.2 mls @ 100.4 mls/hr 05/22/23 00:07 05/22/23 01:32 Chloride IV 05/22/23 00:36 Not Given ONCE ONE Ondansetron HCl 4 mg 05/22/23 00:07 05/22/23 00:22 Ondansetron Hcl 4 Mg/2 Ml Vial IVPUSH 05/22/23 00:08 4 mg ONCE ONE Administration Phenobarbital Sodium 217 mg 05/22/23 01:00 05/22/23 01:25 Phenobarbital Sodium 130 Mg/Ml Im Once IM 05/22/23 01:01 217 mg ONCE ONE Administration Medical Decision Making Medical Decision Making [facility] Narrative: 32-year-old male presents for evaluation of alcohol withdrawal. She reports her last drink was just prior to arrival but she has been drinking last since Wednesday. She reports a history of alcohol withdrawal seizures but is currently neurologically intact. Denies any seizures today. She arrives hypertensive to 153/103, she 7 with a regular rhythm. EKG will be ordered. Labs are pending including , ethanol level, drug screen. Patient will be dosed with phenobarb. Plan re-evaluate, see the patient doing and determine admission versus detox. Differential Diagnosis Differential Diagnoses: The differential diagnosis associated with the presentation includes Alcohol withdrawal Dehydration Acute alcohol intoxication Substance abuse One acute encephalopathy Admission/Observation Consideration of admission/observation: Escalation of care including admission/observation considered Due to severe alcohol withdrawal Lab Data [facility] Lab Attestation statement: I reviewed the patient's lab results. No leukocytosis, no significant anemia, normal platelets. Sodium is normal at 137, potassium is low at 2.8. Chloride is low at 94. Magnesium is critically low at 1.4. Five with a creatinine of 0.63 05/22/23 01:35 05/22/23 01:35 Labs: Lab Results 05/22/23 05/22/23 05/22/23 Range/Units 01:35 01:35 01:35 WBC 7.1 (4.8-10.8) X10*3/uL RBC 4.39 (4.20-5.50) X10*6/uL Hgb 13.4 (12.0-16.0) g/dl Hct 38.2 (37.0-47.0) % MCV 87.0 (80.0-98.0) fL MCH 30.5 (27.0-33.0) pg MCHC 35.1 H (31.0-35.0) g/dl RDW 14.2 (11.0-16.0) % Plt Count 257 (160-400) X10*3/uL MPV 8.7 L (9.4-12.3) fL Immature Gran % (Auto) 0.1 (0.0-0.4) % Neut % (Auto) 71.9 (45-73) % Lymph % (Auto) 20.7 (20-40) % [place] % (Auto) 6.7 (2-11) % Eos % (Auto) 0.0 (0-4) % Baso % (Auto) 0.6 (0-2) % Lymph # (Auto) 1.5 (1.2-4.9) X10*3/uL [place] # (Auto) 0.5 (0.1-1.2) X10*3/uL Eos # (Auto) 0.0 (0.0-0.4) X10*3/uL Baso # (Auto) 0.0 (0.0-0.2) X10*3/uL Abs Immat Gran (auto) 0.01 (0.00-0.03) X10*3/uL Absolute Neuts (auto) 5.1 (2.0-8.3) x10*3/uL Absolute Nucleated RBC 0.000 (0.0-0.012) X10*3/uL Nucleated RBC % (auto) 0.0 (0.0-0.2) /100WBC Sodium 137 (135-145) mmol/L Potassium 2.8 L (3.3-5.1) mmol/L Chloride 94 L (96-108) mmol/L Carbon Dioxide 26 (22-29) mmol/L Anion Gap 20 (12-20) BUN 5 L (9-16) mg/dL Creatinine 0.63 (0.5-1.4) mg/dL Estim Creat Clear Calc 109.7 Estimated GFR > 60 Random Glucose 106 (60-115) mg/dL Calcium 8.5 (8.4-10.2) mg/dL Magnesium 1.4 L* (1.6-2.6) mg/dL Total Bilirubin 0.8 (0.0-1.0) mg/dL AST 22 (5-31) U/L ALT 15 (0-31) U/L Alkaline Phosphatase 119 H (39-117) U/L Total Protein 7.7 (6.5-8.0) g/dL Albumin 4.1 (3.5-5.0) g/dL Lipase 18 (8-78) U/L Ethyl Alcohol 329 H* mg/dL Discharge Plan Discharge Clinical Impression: Alcoholic intoxication, Hypomagnesemia, Acute hypokalemia Patient Disposition: Still a Patient Instructions: Abuse of Alcohol (ED)
[2023-05-22] MEDS: PHENobarbitaL sodium 130 MG/ML IM ONCE 217 MG IM (01:25)
[2023-05-22 01:42] LABS: MANUAL DIFF FLAG NO
[2023-05-22 01:43] LABS: Basophils Percent Auto 0.6 % (0-2); Hematocrit 38.2 % (37.0-47.0); Hemoglobin 13.4 g/dl (12.0-16.0); Imm Gran Abs Auto 0.01 X10*3/uL (0.00-0.03); Imm Gran Pct Auto 0.1 % (0.0-0.4); Lymphocytes Absolute Auto 1.5 X10*3/uL (1.2-4.9); Lymphocytes Percent Auto 20.7 % (20-40); Mean Corpuscular HGB Conc 35.1 g/dl (31.0-35.0); Mean Corpuscular Hemoglobin 30.5 pg (27.0-33.0); Mean Platelet Volume 8.7 fL (9.4-12.3); Monocytes Absolute Auto 0.5 X10*3/uL (0.1-1.2); Monocytes Percent Auto 6.7 % (2-11); Neutrophils Absolute Auto 5.1 x10*3/uL (2.0-8.3); Neutrophils Percent Auto 71.9 % (45-73); Platelet Count 257 X10*3/uL (160-400); Red Blood Count 4.39 X10*6/uL (4.20-5.50); Red Cell Distribution Width 14.2 % (11.0-16.0); White Blood Count 7.1 X10*3/uL (4.8-10.8)
--- NOTE | 2023-05-22 01:43 | MHC.EDTECH ---
Patient changed over
[2023-05-22 01:58] LABS: Ethanol 329 mg/dL
[2023-05-22 02:03] LABS: Alanine Aminotransferase 15 U/L (0-31); Albumin Level 4.1 g/dL (3.5-5.0); Alkaline Phosphatase 119 U/L (39-117); Anion Gap 20 (12-20); Aspartate Amino Transferase 22 U/L (5-31); Bilirubin Total 0.8 mg/dL (0.0-1.0); Blood Urea Nitrogen 5 mg/dL (9-16); Calcium 8.5 mg/dL (8.4-10.2); Carbon Dioxide 26 mmol/L (22-29); Chloride 94 mmol/L (96-108); Creatinine Clr Calc Pharmacy 109.7; Estimated Glomerular Filt Rate > 60; Glucose Random 106 mg/dL (60-115); Lipase 18 U/L (8-78); Magnesium 1.4 mg/dL (1.6-2.6); Potassium 2.8 mmol/L (3.3-5.1); Sodium 137 mmol/L (135-145); Total Protein 7.7 g/dL (6.5-8.0)
[2023-05-22 02:13] LABS: Troponin-I High Sensitivity < 2.7 ng/L (<3.5-17.0)
[2023-05-22 02:14] LABS: HCG Quantitative < 2 mIU/mL
[2023-05-22] MEDS: Magnesium Sulfate/H2O 2 GM/50 ML PIGGYBACK IV (02:17)
[2023-05-22] MEDS: Potassium Chloride ER 20 MEQ TAB.ER.PRT 40 MEQ PO (02:23)
[2023-05-22 03:39] LABS: Appearance Urine Clear; Color Urine Yellow; Glucose Urine UA Negative (Negative); Leukocyte Esterase Urine Moderate (2+) (Negative); Nitrite Urine Negative (Negative); PH 8.5 (5.0-9.0); Specific Gravity - Urine 1.015 (1.005-1.025); UMIC TRIGGER UACC YES; Urine Blood Small (1+) (Negative); Urine Ketones 15 mg/dL (Negative); Urine Protein 30 (1+) mg/dL (Neg-Trace)
[2023-05-22 03:53] LABS: Amphetamine Screen Urine Not Detected (Not Detect); Bacteria Urine Trace (None Seen); Barbiturates, Urine POSITIVE (Not Detect); Benzodiazepines Screen Urine Not Detected (Not Detect); Cannabinoid Screen Urine Not Detected (Not Detect); Cocaine Screen Urine Not Detected (Not Detect); Fentanyl, urine Not Detected (Not Detect); Hyaline Casts Urine 0-2 /LPF (0-2); Opiate Screen Urine Not Detected (Not Detect); Phencyclidine Screen Urine Not Detected (Not Detect); Squamous Epithelial Cell Urine 0-2 /HPF (0-2); UACC Culture Trigger YES
--- NOTE | 2023-05-22 04:18 | PC.NURSE ---
Pt VICKEYA from home, A&Ox4, reports 10/10 constant headache, N/V and anxiety. Pt reports last alcoholic drink was prior to arrival. CIWA 13. Seizure precautions in place. Pt placed on bedside monitor, Pt tachy, EKG obtained and reviewed by provider, meds given as ordered. pt denies SI/HI. Pt desires rehab.
--- NOTE | 2023-05-22 06:08 | PC.NURSE ---
Pt reports N/V, given PO fluids per Pt request.
--- NOTE | 2023-05-22 07:46 | PC.NURSE ---
pt resting, reports feeling lousy and super thirsty . stating she continues to vomit everything that she drinks, encouraged not to continue to drink anything at this time
[2023-05-22] MEDS: Folic Acid 1 MG in 0.9 % Sodium Chloride 50 ML 100.4 MG IV (08:35)
[2023-05-22] MEDS: LORazepam 2 MG/ML VIAL 1 MG IVPUSH (08:35)
--- NOTE | 2023-05-22 08:49 | HE.PHANOTE ---
RE: phenobarbital dosing Spoke to Frannie Mcclain about the canceled 30% loading doses from overnight. She wants me to put them in for now dosing to treat.
--- NOTE | 2023-05-22 09:30 | PC.NURSE ---
CIWA of 13, provider aware. 1mg ativan administered, pt sleeping at this time.
--- NOTE | 2023-05-22 10:08 | P.HPHOSP_ITS ---
History of Present Illness Date of Service: 05/22/23 Chief Complaint: Nausea 32 year old women presenting to the ER with nausea, vomiting and tremors. She reports history of heavy alcohol abuse normally drinking nebs or shots of hard alcohol. She reported Wednesday she went [place] to [place] and had ep isode where she fell asleep on the porch, got a sunburn on from there continued to feel unwell with nausea. She was drinking shots often on to avoid withdrawal symptoms. When she got home yesterday she was vomiting and decided to come to the ER for further evaluation. She denied any blood in her vomit or any bloody stool. Does have some diffuse abdominal pain and hand tremors. In the ER, her potassium was noted to be 2.8, magnesium 1.4, positive urinalysis, alcohol level 329. She was noted to be tachycardic. She was given potassium, lorazepam, Rocephin, magnesium, IV fluids and was started phenobarbital protocol. She will be admitted for further management treatment of acute alcohol withdrawal. Review of Systems Review of Systems: Denies any recent fever chills or decrease in appetite respiratory denies any shortness of breath coverage production cardiovascular denies chest pain gastrointestinal reports nausea and vomiting genitourinary denies any dysuria frequency or hematuria musculoskeletal denies any joint pain or swelling neuropsych denies any weakness or seizures all other systems reviewed are negative [facility] Medical History Alcoholism Depression Withdrawal seizures Pertinent family history: Denies cardiac disease Social History (Updated 04/21/21 @ 11:11 by Citlalli Knight DO) Household Members: Family Housing: House Do you presently have visiting nurse or other home services: No Alcohol intake: current Alcohol intake frequency: 3 or more drinks per day Alcohol type: hard liquor Patient Tobacco Use Status: Never used Tobacco Smoked in Last 30 Days: Yes Use of substances other than those prescribed or required for medical reasons: No Substance Use Type: Marijuana Substance Use Frequency: Occasionally Currently Displaying Signs/Symptoms of Drug Intoxication Withdrawal: No Have you been hit, kicked, punched, or otherwise hurt by someone within the past year? If so, by whom?: No Do you feel safe in your current relationship?: Yes Is there a partner from a previous relationship who is making you feel unsafe now?: No Are you made to feel afraid or neglected: No Advance Directives: No Advance Directives Information Provided: No Advance Directives on File: No Do you have thoughts of harming others: None Do you have a plan to hurt others: No Plan Recently lost weight without trying: No How much weight loss: Not applicable Eating poorly because of decreased appetite: No Nutrition screen score: 0 Nutrition Risks: No Nutritional Risk Patient : No : No Poor oral hygiene: No Meds Allergies Allergy/AdvReac Type Severity Reaction Status Date / Time Iodinated Contrast Media AdvReac Hives Verified 05/22/23 00:13 [Contrast Dye] Active Medications: Current Medications Acetaminophen (Acetaminophen 325 Mg Tablet) 650 mg PO Q6H PRN PRN Reason: Pain, Mild (Pain Scale 1-3) Enoxaparin Sodium (Enoxaparin Sodium 40 Mg/0.4 Ml Syringe) 40 mg SUBCUT Q24H [facility] Folic Acid (Folic Acid 1 Mg Tablet) 1 mg PO DAILY [facility] Lactated Ringer's (Lr) 1,000 mls @ 150 mls/hr IVCONT .Q6H40M [facility] Multivitamins/Vitamin C (Multivitamin Tablet) 1 tab PO DAILY [facility] Pharmacy Consult (Consult Rx Etoh Phenob Im/Po) 1 each MISCELLANE Q4H PRN; Taper; Protocol PRN Reason: Consult order Stop: 05/26/23 00:06 Pharmacy Consult (Consult Rx Perform Med Rec) 1 each MISCELLANE ONCE PRN PRN Reason: Consult order Phenobarbital (Phenobarbital 15 Mg Tablet) 45 mg PO BID [facility] Stop: 05/24/23 21:01 Phenobarbital (Phenobarbital 15 Mg Tablet) 15 mg PO BID [facility] Stop: 05/26/23 21:01 Phenobarbital (Phenobarbital 15 Mg Tablet) 15 mg PO DAILY [facility] Stop: 05/28/23 09:01 Phenobarbital Sodium (Phenobarbital Sodium 130 Mg/Ml Vial Im Q3hx2) 163 mg IM Q3H [facility] Stop: 05/22/23 11:46 Sodium Chloride (0.9 % Sodium Chloride Flush 3 Ml Syringe) 3 ml IVFLUSH QSHIFT [facility] Thiamine HCl (Thiamine Hcl 100 Mg Tablet) 100 mg PO DAILY [facility] Home Medications Medication Instructions Recorded Confirmed Last Taken Type No Known Home Meds 05/22/23 05/22/23 Unknown History Physical Exam Vital Signs and Narrative: Vital Signs: Last Vital Signs Temp 99.3 F 05/22/23 07:10 Pulse 113 H 05/22/23 07:10 Resp 10 L 05/22/23 07:10 BP 130/81 05/22/23 07:10 Pulse Ox 97 05/22/23 07:10 O2 Del Method Room Air 05/22/23 07:10 BMI result Body Mass Index 19.9 Appearing in no acute distress head is normocephalic atraumatic eyes pupils are PERRLA sclera is anicteric mouth throat mucous membranes are intact and moist neck is supple no lymphadenopathy, no JVD noted lung sounds are clear to auscultation heart regular rate rhythm, clear S1, S2 positive bowel sounds, abdomen is soft, nontender neuro patient is alert x3, no focal deficits Results Labs 05/22/23 01:35 05/22/23 01:35 Labs: Laboratory Results - last 24 hr 05/22/23 05/22/23 05/22/23 01:35 01:35 01:35 MCV 87.0 MCH 30.5 MCHC 35.1 H RDW 14.2 Plt Count 257 MPV 8.7 L Immature Gran % (Auto) 0.1 Neut % (Auto) 71.9 Lymph % (Auto) 20.7 [place] % (Auto) 6.7 Eos % (Auto) 0.0 Baso % (Auto) 0.6 Lymph # (Auto) 1.5 [place] # (Auto) 0.5 Eos # (Auto) 0.0 Baso # (Auto) 0.0 Abs Immat Gran (auto) 0.01 Absolute Neuts (auto) 5.1 Absolute Nucleated RBC 0.000 Nucleated RBC % (auto) 0.0 Anion Gap 20 Estim Creat Clear Calc 109.7 Estimated GFR > 60 Random Glucose 106 Calcium 8.5 Magnesium 1.4 L* Total Bilirubin 0.8 AST 22 ALT 15 Alkaline Phosphatase 119 H Troponin I High Sens < 2.7 Total Protein 7.7 Albumin 4.1 Lipase 18 Beta HCG, Quant Urine Color Urine Appearance Urine pH Ur Specific Amonate Urine Protein Urine Glucose (UA) Urine Ketones Urine Blood Urine Nitrite Ur Leukocyte Esterase Urine RBC Urine WBC Ur Squamous Epith Cells Urine Bacteria Hyaline Casts Urine Opiates Screen Urine Fentanyl Screen Ur Barbiturates Screen Ur Phencyclidine Scrn Ur Amphetamines Screen U Benzodiazepines Scrn Urine Cocaine Screen U Marijuana (THC) Screen Ethyl Alcohol 05/22/23 05/22/23 05/22/23 01:35 01:35 03:33 MCV MCH MCHC RDW Plt Count MPV Immature Gran % (Auto) Neut % (Auto) Lymph % (Auto) [place] % (Auto) Eos % (Auto) Baso % (Auto) Lymph # (Auto) [place] # (Auto) Eos # (Auto) Baso # (Auto) Abs Immat Gran (auto) Absolute Neuts (auto) Absolute Nucleated RBC Nucleated RBC % (auto) Anion Gap Estim Creat Clear Calc Estimated GFR Random Glucose Calcium Magnesium Total Bilirubin AST ALT Alkaline Phosphatase Troponin I High Sens Total Protein Albumin Lipase Beta HCG, Quant < 2 Urine Color Yellow Urine Appearance Clear Urine pH 8.5 Ur Specific [place] 1.015 Urine Protein 30 (1+) H Urine Glucose (UA) Negative Urine Ketones 15 Urine Blood Small (1+) H Urine Nitrite Negative Ur Leukocyte Esterase Moderate (2+) H Urine RBC 3-5 H Urine WBC 11-20 H Ur Squamous Epith Cells 0-2 Urine Bacteria Trace Hyaline Casts 0-2 Urine Opiates Screen Urine Fentanyl Screen Ur Barbiturates Screen Ur Phencyclidine Scrn Ur Amphetamines Screen U Benzodiazepines Scrn Urine Cocaine Screen U Marijuana (THC) Screen Ethyl Alcohol 329 H* 05/22/23 03:33 MCV MCH MCHC RDW Plt Count MPV Immature Gran % (Auto) Neut % (Auto) Lymph % (Auto) [place] % (Auto) Eos % (Auto) Baso % (Auto) Lymph # (Auto) Cross # (Auto) Eos # (Auto) Baso # (Auto) Abs Immat Gran (auto) Absolute Neuts (auto) Absolute Nucleated RBC Nucleated RBC % (auto) Anion Gap Estim Creat Clear Calc Estimated GFR Random Glucose Calcium Magnesium Total Bilirubin AST ALT Alkaline Phosphatase Troponin I High Sens Total Protein Albumin Lipase Beta HCG, Quant Urine Color Urine Appearance Urine pH Ur Specific Amonate Urine Protein Urine Glucose (UA) Urine Ketones Urine Blood Urine Nitrite Ur Leukocyte Esterase Urine RBC Urine WBC Ur Squamous Epith Cells Urine Bacteria Hyaline Casts Urine Opiates Screen Not Detected Urine Fentanyl Screen Not Detected Ur Barbiturates Screen POSITIVE H Ur Phencyclidine Scrn Not Detected Ur Amphetamines Screen Not Detected U Benzodiazepines Scrn Not Detected Urine Cocaine Screen Not Detected U Marijuana (THC) Screen Not Detected Ethyl Alcohol Assessment and Plan (1) Alcoholic intoxication: Status: Acute Plan 32 year old women admitted with Alcohol withdrawal symptoms Alcohol withdrawal tachycardia and tremors Phenobarbitol protocol IV fluids @ 150 hr Thiamine, folic acid, multivitamins Regular diet addiction team consult hypomagnesemia/hypokalemia secondary to alcohol use replete encourage oral intake UTI Rocephin follow urine cx DVT prophylaxis with Lovenox Full code patient requires 2 inpatient midnights for treatment of acute alcohol withdrawal requiring close monitoring to avoid alcoholic withdrawal seizures. Time Spent With Patient Time: Total time managing care of this patient today ____ minutes. Quality Stroke Does the patient have a stroke diagnosis?: No VTE Prior VTE?: No VTE Risk Level:: Medical - moderate - high VTE Device Contraindication: Treatment Not Indicated VTE Drug Contraindication: N/A - Med Ordered
[2023-05-22] MEDS: Lactated Ringers 1,000 ML 150 ML IVCONT ×2 (10:50→18:21)
[2023-05-22] MEDS: cefTRIAXone sodium 1 GM in 0.9 % Sodium Chloride 50 ML IV (10:50)
--- NOTE | 2023-05-22 12:26 | PHA.MEDREC ---
Pharmacy Consult ? Medication Reconciliation Pharmacy has completed the medication reconciliation. patient states that she has not taken any medications in weeks. Was previously on Vitamin D2 once weekly, Hydroxyzine prn, trazodone prn, and methocarbamol prn. Was recently prescribed venlafaxine but patient states she never started it.
[2023-05-22] MEDS: PHENobarbitaL sodium 130 MG/ML VIAL IM Q3Hx2 163 MG IM (12:30)
[2023-05-23] MEDS: Lactated Ringers 1,000 ML 150 ML IVCONT ×2 (01:03→08:02)
[2023-05-23] MEDS: Acetaminophen 325 MG TABLET 650 MG PO ×2 (03:17→20:24)
[2023-05-23 07:45] VITALS: BP 119/77; PULSE 83; RESP 18; TEMP 36.6; O2SAT 98
[2023-05-23] MEDS: PHENobarbitaL 15 MG TABLET 45 MG PO ×2 (08:00→20:19)
[2023-05-23] MEDS: Multivitamin TABLET 1 TAB PO (08:01)
[2023-05-23] MEDS: Thiamine HCL 100 MG TABLET PO (08:01)
[2023-05-23] MEDS: Folic Acid 1 MG TABLET PO (08:01)
[2023-05-23] MEDS: ondansetron HCL 4 MG/2 ML VIAL IVPUSH (08:04)
[2023-05-23 08:55] LABS: Hematocrit 33.9 % (37.0-47.0); Hemoglobin 11.9 g/dl (12.0-16.0); Mean Corpuscular HGB Conc 35.1 g/dl (31.0-35.0); Mean Corpuscular Hemoglobin 31.2 pg (27.0-33.0); Mean Corpuscular Volume 88.7 fL (80.0-98.0); Mean Platelet Volume 9.4 fL (9.4-12.3); Platelet Count 161 X10*3/uL (160-400); Red Blood Count 3.82 X10*6/uL (4.20-5.50); Red Cell Distribution Width 13.8 % (11.0-16.0); White Blood Count 6.4 X10*3/uL (4.8-10.8)
[2023-05-23] MEDS: cefTRIAXone sodium 1 GM in 0.9 % Sodium Chloride 50 ML IV (09:15)
[2023-05-23 09:24] LABS: Anion Gap 10 (12-20); Blood Urea Nitrogen < 3 mg/dL (9-16); Calcium 8.9 mg/dL (8.4-10.2); Carbon Dioxide 29 mmol/L (22-29); Chloride 93 mmol/L (96-108); Creatinine Clr Calc Pharmacy 123.3; Estimated Glomerular Filt Rate > 60; Glucose Random 106 mg/dL (60-115); Potassium 2.7 mmol/L (3.3-5.1); Sodium 129 mmol/L (135-145)
[2023-05-23 09:36] LABS: Magnesium 1.2 mg/dL (1.6-2.6)
--- NOTE | 2023-05-23 09:40 | PC.NURSE ---
Critical mag notified to [facility] MANAGER
--- NOTE | 2023-05-23 09:46 | HO.PM.IMPN ---
Subjective Subjective Date of Service: 05/23/23 Review of Systems Follow up alcohol abuse feeling tired today abd pain with no nausea Physical Exam Vital Signs: Vital Signs: Last Vital Signs Temp 97.9 F 05/23/23 07:45 Pulse 83 05/23/23 07:45 Resp 18 05/23/23 07:45 BP 119/77 05/23/23 07:45 Pulse Ox 98 05/23/23 07:45 O2 Del Method Room Air 05/23/23 07:45 BMI result Body Mass Index 19.9 Appearing in no acute distress lung sounds are clear to auscultation heart regular rate rhythm, clear S1, S2 positive bowel sounds, abdomen is soft, nontender neuro patient is alert x3, no focal deficits Objective Data Active Medications Acetaminophen (Acetaminophen 325 Mg Tablet) 650 mg PO Q6H PRN PRN Reason: Pain, Mild (Pain Scale 1-3) Last Admin: 05/23/23 03:17 Dose: 650 mg Documented By: VARSHA Enoxaparin Sodium (Enoxaparin Sodium 40 Mg/0.4 Ml Syringe) 40 mg SUBCUT Q24H [facility] Last Admin: 05/23/23 08:33 Dose: Not Given Documented By: ANGELICA Non-Admin Reason: Patient Refused Folic Acid (Folic Acid 1 Mg Tablet) 1 mg PO DAILY [facility] Last Admin: 05/23/23 08:01 Dose: 1 mg Documented By: ANGELICA Lactated Ringer's (Lr) 1,000 mls @ 150 mls/hr IVCONT .Q6H40M [facility] Last Admin: 05/23/23 08:02 Dose: 150 mls/hr Documented By: ANGELICA Ceftriaxone Sodium 1 gm/ (Sodium Chloride) 50 mls @ 100 mls/hr IV Q24H [facility] Last Admin: 05/23/23 09:15 Dose: 100 mls/hr Documented By: ANGELICA Multivitamins/Vitamin C (Multivitamin Tablet) 1 tab PO DAILY [facility] Last Admin: 05/23/23 08:01 Dose: 1 tab Documented By: ANGELICA Ondansetron HCl (Ondansetron Hcl 4 Mg/2 Ml Vial) 4 mg IVPUSH Q4H PRN PRN Reason: Nausea and Vomiting Last Admin: 05/23/23 08:04 Dose: 4 mg Documented By: ANGELICA Pharmacy Consult (Consult Rx Etoh Phenob Im/Po) 1 each MISCELLANE Q6H PRN; Taper; Protocol PRN Reason: Consult order Stop: 05/26/23 00:06 Pharmacy Consult (Consult Rx Perform Med Rec) 1 each MISCELLANE ONCE PRN PRN Reason: Consult order Phenobarbital (Phenobarbital 15 Mg Tablet) 45 mg PO BID [facility] Stop: 05/24/23 21:01 Last Admin: 05/23/23 08:00 Dose: 45 mg Documented By: ANGELICA Phenobarbital (Phenobarbital 15 Mg Tablet) 15 mg PO BID [facility] Stop: 05/26/23 21:01 Phenobarbital (Phenobarbital 15 Mg Tablet) 15 mg PO DAILY [facility] Stop: 05/28/23 09:01 Sodium Chloride (0.9 % Sodium Chloride Flush 3 Ml Syringe) 3 ml IVFLUSH QSHIFT [facility] Last Admin: 05/23/23 07:10 Dose: Not Given Documented By: ANGELICA Non-Admin Reason: IV Running Thiamine HCl (Thiamine Hcl 100 Mg Tablet) 100 mg PO DAILY [facility] Last Admin: 05/23/23 08:01 Dose: 100 mg Documented By: ANGELICA Labs 05/23/23 08:46 05/23/23 08:46 Labs: Laboratory Results - last 24 hr 05/23/23 05/23/23 05/23/23 08:46 08:46 08:46 MCV 88.7 MCH 31.2 MCHC 35.1 H RDW 13.8 Plt Count 161 D MPV 9.4 Absolute Nucleated RBC 0.000 Nucleated RBC % (auto) 0.0 Anion Gap 10 L Estim Creat Clear Calc 123.3 Estimated GFR > 60 Random Glucose 106 Calcium 8.9 Magnesium 1.2 L* Assessment and Plan (1) Alcoholic intoxication: Status: Acute Plan 32 year old women admitted with Alcohol withdrawal symptoms Alcohol withdrawal tachycardia and tremors? Phenobarbitol protocol IV fluids @ 150 hr Thiamine, folic acid, multivitamins Regular diet addiction team consult hypomagnesemia/hypokalemia/hyponatremia secondary to alcohol use replete encourage oral intake UTI Rocephin follow urine cx DVT prophylaxis with Lovenox Attending Dr. Villatoro continued hospital stay for treatment of acute alcohol withdrawal requiring close monitoring to avoid alcoholic withdrawal seizures. Time Spent With Patient Time: Total time managing care of this patient today ____ minutes. Quality Stroke Does the patient have a stroke diagnosis?: No VTE Prior VTE?: No VTE Risk Level:: Medical - moderate - high VTE Device Contraindication: Treatment Not Indicated VTE Drug Contraindication: N/A - Med Ordered
[2023-05-23] MEDS: Potassium Chloride ER 20 MEQ TAB.ER.PRT 40 MEQ PO (09:59)
[2023-05-23] MEDS: Magnesium Sulfate/H2O 2 GM/50 ML PIGGYBACK IV (09:59)
[2023-05-23] MEDS: 0.9 % Sodium Chloride 1,000 ML 100 ML IVCONT ×2 (10:13→20:18)
--- NOTE | 2023-05-23 14:24 | MHC.CM.PN ---
PT REPORTS SHE LIVES AT HOME WITH HER PARENTS AND IS INDEPENDENT WITH CARE SHE HAS NO DME AND NO SERVICES PT DECLINES A HCP SHE SAYS HER PCP IS AT [facility], SHE DOES NOT KNOW THE NAME DCP: HOME NO SERVICES VIA PRIVATE TRANSPORT
[2023-05-23 15:46] VITALS: BP 123/77; PULSE 88; RESP 16; TEMP 36.6; O2SAT 94
--- NOTE | 2023-05-23 15:59 | MHC.RECOVRN ---
Met with pt in 363 after consult placed to Addiction Medicine for alcohol use. Pt had been BIBA and reported drinking unknown amount of vodka x 5 days and reporting n/v. Pt subsequently admitted for alcohol intoxication and management of withdrawal. Pt laying in bed, asleep, wakes to voice, somewhat difficult to engage in conversation due to pt stating I just want to rest. 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 Pt somewhat vague with pattern of use, states sometimes I'll go 4 days or a week without drinking. Pt reports hx Vivitrol, approx 4 years ago, with positive effect x 4 months. Pt states I didn't crave it at all. Pt interested in naltrexone and receiving Vivitrol. Discussed [facility], pt would like to establish care, will make appt prior to dc. Pt provided with written recovery resources to go over. T/w will follow up tomorrow. Pt denies questions or concerns.
[2023-05-23] MEDS: Magnesium Oxide 400 MG TABLET PO (16:31)
[2023-05-23 20:00] VITALS: BP 118/74; PULSE 89; RESP 18; TEMP 36.8; O2SAT 99
[2023-05-24 04:00] VITALS: BP 113/75; PULSE 91; RESP 16; TEMP 36.8; O2SAT 100
[2023-05-24] MEDS: 0.9 % Sodium Chloride 1,000 ML 100 ML IVCONT (06:21)
[2023-05-24 06:31] LABS: Anion Gap 10 (12-20); Blood Urea Nitrogen 4 mg/dL (9-16); Carbon Dioxide 26 mmol/L (22-29); Chloride 97 mmol/L (96-108); Creatinine Clr Calc Pharmacy 121.2; Estimated Glomerular Filt Rate > 60; Glucose Random 90 mg/dL (60-115); Potassium 3.4 mmol/L (3.3-5.1); Sodium 130 mmol/L (135-145)
[2023-05-24 06:37] LABS: Magnesium 1.4 mg/dL (1.6-2.6)
[2023-05-24] MEDS: Magnesium Sulfate/H2O 2 GM/50 ML PIGGYBACK IV ×2 (07:15→09:33)
[2023-05-24] MEDS: 0.9 % Sodium Chloride Flush 3 ML SYRINGE IVFLUSH (07:16)
[2023-05-24 07:57] VITALS: BP 103/57; PULSE 74; RESP 16; TEMP 36; O2SAT 97
[2023-05-24] MEDS: Potassium Chloride ER 20 MEQ TAB.ER.PRT 40 MEQ PO (08:16)
[2023-05-24] MEDS: Folic Acid 1 MG TABLET PO (08:16)
[2023-05-24] MEDS: PHENobarbitaL 15 MG TABLET 45 MG PO (08:16)
[2023-05-24] MEDS: Multivitamin TABLET 1 TAB PO (08:16)
[2023-05-24] MEDS: Thiamine HCL 100 MG TABLET PO (08:16)
[2023-05-24] MEDS: Magnesium Oxide 400 MG TABLET PO (08:16)
[2023-05-24] MEDS: Enoxaparin Sodium 40 MG/0.4 ML SYRINGE SUBCUT (09:34)
--- NOTE | 2023-05-24 12:29 | MHC.CM.PN ---
Per MD rounds may discharge later today. Patient with hypomag received replacement today. Follow up labdraw for MG+ has been ordered for this afternoon. DP Home self care private transport.
[2023-05-24 13:05] LABS: Anion Gap 9 (12-20); Blood Urea Nitrogen 4 mg/dL (9-16); Calcium 9.3 mg/dL (8.4-10.2); Carbon Dioxide 29 mmol/L (22-29); Chloride 96 mmol/L (96-108); Estimated Glomerular Filt Rate > 60; Glucose Random 82 mg/dL (60-115); Magnesium 2.7 mg/dL (1.6-2.6); Potassium 3.9 mmol/L (3.3-5.1); Sodium 130 mmol/L (135-145)
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
--- NOTE | 2023-05-24 14:30 | MHC.RECOVRN ---
Met with pt in 363 to follow up and provide support. Pt laying in bed in the dark, eyes closed, wakes to voice. Pt interested in initiating care at the [facility] with goal of Vivitrol. Pt denies questions or concerns related to other recovery supports. [facility] appt 05/31/23 at 11:15AM. CM aware.
--- NOTE | 2023-05-24 15:13 | MHC.CM.PN ---
Patient is discharged to home self care. She has an appointment @ the [facility] 05/31/23 @ 11:15 am. She has arranged for transport home.
== END 2023-05-24 15:17 | disposition home or self-care (01) | DRG 425 ==
LOC: HO.ED 05-22 01:07 → HO.EDOVER 05-22 10:29 → HO.S3 05-22 10:35
PROVIDERS: Physician Assistant; Admitting Provider Nurse Practitioner Acute Care; Emergency Provider Internal Medicine; PCP Family Medicine; Visit Provider Nurse Practitioner Acute Care
DX: E87.6 Hypokalemia (principal); E87.1 Hypo-osmolality and hyponatremia; E83.42 Hypomagnesemia; F10.229 Alcohol dependence with intoxication, unspecified; F10.239 Alcohol dependence with withdrawal, unspecified; Z91.041 Radiographic dye allergy status; Y90.8 Blood alcohol level of 240 mg/100 ml or more
CPT/HCPCS: 36415; 80048; 80053; 80307; 81001; 83690; 83735; 84484; 84702; 85025; 85027; 87086; 93005; 99285; J0696; J1650; J2060; J2405; J2560; J3411; J3475

== ENCOUNTER → 2023-05-22 00:07 | Outpatient (BNV) | payer OTHER, SELFPAY | PROVIDERS: Admitting Provider Nurse Practitioner Acute Care; Emergency Provider Internal Medicine; Visit Provider Internal Medicine Cardiovascular Disease | DX: R07.9 Chest pain, unspecified (principal) | CPT/HCPCS: 93010 ==

== ENCOUNTER → 2023-05-22 10:03 | Outpatient (BNV) | payer OTHER, SELFPAY | PROVIDERS: Admitting Provider Nurse Practitioner Acute Care; Emergency Provider Internal Medicine; Visit Provider Nurse Practitioner Acute Care | DX: F10.929 Alcohol use, unspecified with intoxication, unspecified (principal) | CPT/HCPCS: 99223; 99232; 99239 ==

== ENCOUNTER 2023-05-31 11:10 | Outpatient (AMB) | payer OTHER, SELFPAY ==
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
[2023-05-31 11:17] VITALS: BP 102/72; PULSE 80; O2SAT 99
== END 2023-05-31 12:54 | disposition home or self-care (01) ==
LOC: HO.HCC 11:10
PROVIDERS: PCP Family Medicine; Visit Provider Nurse Practitioner Psychiatric/Mental Health
DX: F10.20 Alcohol dependence, uncomplicated (principal)
CPT/HCPCS: 99204

== ENCOUNTER → 2023-05-31 11:10 | Outpatient (BNVA) | payer OTHER, SELFPAY | PROVIDERS: PCP Family Medicine; Visit Provider Nurse Practitioner Psychiatric/Mental Health | DX: F10.20 Alcohol dependence, uncomplicated (principal) | CPT/HCPCS: 99202 ==

== ENCOUNTER 2023-06-14 11:33 | Outpatient (AMB) | payer OTHER, SELFPAY ==
--- NOTE | 2023-06-14 11:36 | MHC.OFFVIS ---
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: No Allergies Iodinated Contrast Media [Contrast Dye] Adverse Reaction (Verified 06/14/23 11:37) Hives Do you need a note to return to daycare/school/sports/work: No HPI MAT Visit HPI Details Patient presents for AUD treatment follow up and Vivitrol injection Continues to abstain from alcohol Tolerating Naltrexone No questions or concerns related to injection as she has had them before Did hear from [facility] for intake, awaiting call back [facility] Medical History Alcoholism Depression Withdrawal seizures Social History (Updated 04/21/21 @ 11:11 by Citlalli Knight DO) Household Members: Family Housing: House Do you presently have visiting nurse or other home services: No Alcohol intake: current Alcohol intake frequency: 3 or more drinks per day Alcohol type: hard liquor Patient Tobacco Use Status: Never used Tobacco Substance Use Type: Marijuana service: No Review of Systems Const Reports as per HPI and Reports no additional complaints Physical Exam Const General: cooperative, healthy appearing and no acute distress Nutritional Appearance: thin Psych Appearance: well kempt Speech and movement: Clear speech present Affect: normal affect Attitude: cooperative Thought process: Normal thought process present Thought content: Normal thought content present Insight: Fair insight present (Psych) Judgement: Good judgement present (Psych) Office Meds Vivitrol ER Performing Provider: Jamila Cardenas CNP Administered by: Eugenie Lemon RN on 06/14/23 15:11 Dose Route Admin Location Lot Number Expiration Date NDC Hypo Dipper 380 mg IM [id number] 10/31/25 11775-828-52 [employer] Comments: Pt education provided to monitor for heat, swelling, redness, pain, discharge and call the [facility]. Pt verbalized understanding. Pt tolerated injection. Results AMB 14 Panel Urine Drug Screen Urine Marijuana (THC) Positive Last Edit by Shari Whalen CMA on 06/14/23 11:43 Urine Cocaine Negative Last Edit by Shari Whalen CMA on 06/14/23 11:43 Urine Morphine Negative Last Edit by Shari Whalen CMA on 06/14/23 11:43 Urine Methamphetamine Negative Last Edit by Shari Whalen CMA on 06/14/23 11:43 Urine Amphetamine Negative Last Edit by Shari Whalen CMA on 06/14/23 11:43 Urine Benzodiazepine Negative Last Edit by Shari Whalen CMA on 06/14/23 11:43 Urine Barbiturates Positive Last Edit by Shari Whalen CMA on 06/14/23 11:43 Urine Methadone Negative Last Edit by Shari Whalen CMA on 06/14/23 11:43 Urine Buprenorphine Negative Last Edit by Shari Whalen CMA on 06/14/23 11:43 Urine Tricyclic Antidepressant Negative Last Edit by Shari Whalen CMA on 06/14/23 11:43 Urine MDMA Negative Last Edit by Shari Whalen CMA on 06/14/23 11:43 Urine Oxycodone Negative Last Edit by Shari Whalen CMA on 06/14/23 11:43 Urine Phencyclidine Negative Last Edit by Shari Whalen CMA on 06/14/23 11:43 Urine Propoxyphene Negative Last Edit by Shari Whalen CMA on 06/14/23 11:43 AMB Test Urine AMB Test Urine Negative Last Edit by Shari Whalen CMA on 06/14/23 11:45 Results Reviewed Results Reviewed: Laboratory Last Values [facility] Negative 06/14/23 11:37 POC Urine Buprenorphine Negative 06/14/23 11:37 POC Urine Morphine Negative 06/14/23 11:37 POC Urine Oxycodone Negative 06/14/23 11:37 POC Urine Methadone Negative 06/14/23 11:37 POC Urine Propoxyphene Negative 06/14/23 11:37 POC Urine Barbiturates Positive 06/14/23 11:37 POC U Tricyclic Antidpr Negative 06/14/23 11:37 POC Urine PCP Negative 06/14/23 11:37 POC Ur Amphetamines Negative 06/14/23 11:37 POC Ur Methamphetamine Negative 06/14/23 11:37 POC Urine MDMA Negative 06/14/23 11:37 POC Ur Benzodiazepine Negative 06/14/23 11:37 POC Urine Cocaine Negative 06/14/23 11:37 POC Ur Marijuana (THC) Positive 06/14/23 11:37 Assessment & Plan Assessment & Plan (1) Alcohol use disorder, severe, dependence: Code(s): F10.20 - Alcohol dependence, uncomplicated Plan: tolerated injection follow up 4 weeks Orders: Orders AMB Naltrexone Injection Patient Supplied Today F10.20 - Alcohol dependence, uncomplicated AMB 14 Panel Urine Drug Screen Today Z51.81 - Encounter for therapeutic drug level monitoring AMB HCG Urine Test Today Z32.01 - Encounter for test, result positive, Z32.02 - Encounter for test, result negative Coding Level of Care Code Est Pt Level 3 (98105) Diagnoses Alcohol use disorder, severe, dependence F10.20
== END 2023-06-14 12:49 | disposition home or self-care (01) ==
PROVIDERS: PCP Family Medicine; Visit Provider Nurse Practitioner Psychiatric/Mental Health
DX: F10.20 Alcohol dependence, uncomplicated (principal)
CPT/HCPCS: 99213; J2315

== ENCOUNTER → 2023-06-14 11:33 | Outpatient (BNVA) | payer OTHER, SELFPAY | PROVIDERS: PCP Family Medicine; Visit Provider Nurse Practitioner Psychiatric/Mental Health | DX: F10.20 Alcohol dependence, uncomplicated (principal); Z32.02 Encounter for pregnancy test, result negative; Z51.81 Encounter for therapeutic drug level monitoring; Z79.899 Other long term (current) drug therapy | CPT/HCPCS: 80305; 81025; 96372; 99212 ==

== ENCOUNTER 2023-11-05 15:38 | Emergency (ER) | payer OTHER, SELFPAY ==
[2023-11-05 15:46] VITALS: BP 136/86; PULSE 104; O2SAT 98
[2023-11-05 15:58] VITALS: BP 129/76; PULSE 121; RESP 18; TEMP 36; O2SAT 97
--- NOTE | 2023-11-05 21:01 | PC.NURSE ---
pt vomited in the bathroom
[2023-11-05 22:01] VITALS: BP 130/77; PULSE 109; RESP 20; TEMP 36.8; O2SAT 96
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
[2023-11-06 00:57] VITALS: BP 135/87; PULSE 112; RESP 18; TEMP 37; O2SAT 99
== END 2023-11-06 01:33 | disposition home or self-care (01) ==
PROVIDERS: Emergency Provider Emergency Medicine
DX: S93.601A Unspecified sprain of right foot, initial encounter (principal); F10.229 Alcohol dependence with intoxication, unspecified; Y90.8 Blood alcohol level of 240 mg/100 ml or more; R07.89 Other chest pain; M25.571 Pain in right ankle and joints of right foot; W01.0XXA Fall on same level from slipping, tripping and stumbling without subsequent striking against object, initial encounter; Y93.79 Activity, other specified sports and athletics; Y92.410 Unspecified street and highway as the place of occurrence of the external cause; Y99.9 Unspecified external cause status; Z71.41 Alcohol abuse counseling and surveillance of alcoholic
CPT/HCPCS: 36415; 73610; 73630; 80053; 80307; 85025; 93005; 96365; 96367; 96375; 99285; J2060; J3411

== ENCOUNTER → 2023-11-05 16:17 | Outpatient (BNV) | payer OTHER, SELFPAY | PROVIDERS: Emergency Provider Emergency Medicine; Visit Provider Internal Medicine Cardiovascular Disease | DX: R00.0 Tachycardia, unspecified (principal) | CPT/HCPCS: 93010 ==

== ENCOUNTER 2024-06-18 21:14 | Inpatient (IN) | payer OTHER, SELFPAY ==
[2024-06-18] VITALS (8 sets, daily range): BP systolic 95–170; BP diastolic 44–148; PULSE 96–148; RESP 23; TEMP 36.2; O2SAT 86–100; BMI 20.5
--- NOTE | ~2024-06-18 | US_ITS ---
EXAMINATION: US ABDOMEN LIMITED CLINICAL INFORMATION: Pancreatitis; question gallstones. COMPARISON: CT abdomen and pelvis dated 03/05/2012. TECHNIQUE: Real-time imaging of the right upper quadrant abdominal viscera. FINDINGS: PANCREAS: Normal. LIVER: Normal. The liver is normal in size. The liver contour is normal. Parenchymal echogenicity is slightly increased. No focal hepatic lesion. There is no intrahepatic biliary duct dilatation seen. GALLBLADDER: The gallbladder is contracted, without evidence of stones, sludge, polyps, wall thickening or pericholecystic fluid. COMMON BILE DUCT: Upper normal in caliber, measuring 0.7 cm in diameter. RIGHT KIDNEY: Normal. No hydronephrosis. No renal calculi or focal parenchymal lesions. The kidney measures 10.2 cm in maximum dimension. FREE FLUID: None. US/US abdomen limited IMPRESSION: There is generalized increase in hepatic echotexture, consistent with fatty infiltration or hepatocellular disease. Please correlate clinically. No focal hepatic mass or intrahepatic biliary dilatation is seen. Electronically signed by: Modesto Churchill MD 06/25/2024 09:58 PM EDT
--- NOTE | ~2024-06-18 | XR_ITS ---
EXAMINATION: XR CHEST CLINICAL INFORMATION: Line placement. COMPARISON: 06/18/2024 TECHNIQUE: Frontal view of the chest was obtained. FINDINGS: The cardiomediastinal silhouette is stable. There is an endotracheal tube seen in good position above the ayah. A gastric tube extends below the diaphragm into left upper quadrant. A right approach central line terminates at the lower SVC/right atrial junction. There is no pneumothorax. There is no focal lung consolidation or pleural effusions. The bony structures and soft tissues are unremarkable XR/XR chest 1V IMPRESSION: Lines and tubes in good position as described above. No pneumothorax. No acute pulmonary disease.
--- NOTE | ~2024-06-18 | XR_ITS ---
EXAMINATION: XR CHEST CLINICAL INFORMATION: Shortness of breath. COMPARISON: None available. TECHNIQUE: Frontal view of the chest was obtained. FINDINGS: The heart, great vessels, pulmonary vasculature and mediastinum are normal. An endotracheal tube is seen, with tip positioned approximately 2.4 cm superior to the ayah. A nasogastric tube is seen, with tip coiled within gastric body. The lungs show no infiltrate, effusion or pneumothorax. There is no acute osseous abnormality. XR/XR chest 1V IMPRESSION: No active cardiopulmonary disease.
--- NOTE | ~2024-06-18 | CT_ITS ---
EXAMINATION: CT HEAD WITHOUT CONTRAST CLINICAL INFORMATION: Seizure. COMPARISON: None available. TECHNIQUE: Contiguous axial imaging was performed from the skull base to vertex without intravenous administration of contrast. This CT examination was performed using dose optimization techniques as appropriate, variously including the following: *Automated exposure control *Adjustment of mA and/or kV according to patient size (this includes techniques or standardized protocols for targeted exams where dose is matched to indication/reason for exam; i.e. extremities or head) *Use of iterative reconstruction technique DLP: 669 mGy-cm FINDINGS: The lateral, third and fourth ventricles are normally outlined. The cortical sulci and basal cisterns are normally outlined as well. There is no acute territorial defect, hemorrhage or midline shift. The extra-axial spaces are unremarkable. Calvarium/scalp: Intact. Maxillofacial sinuses and mastoids: Clear as visualized. CT/CT head/brain wo IV con IMPRESSION: No acute intracranial pathology.
--- NOTE | 2024-06-18 21:20 | ED.GENADULT ---
HPI - General Adult General Chief complaint: Seizure Stated complaint: Alcohol seizures Time Seen by Provider: 06/18/24 21:20 History of Present Illness ED Provider: Palma SEVERINO narrative: The patient is a 33-year-old female with a history of alcohol use disorder. Apparently an ambulance was called because she seemed unresponsive. Paramedics arrived and found the patient in a bed, seemingly postictal. She was extricated from the apartment. The patient then had a seizure in front of the paramedics that lasted about 2 minutes. They gave 2 mg of IM midazolam and established IV access and gave 2 mg of IV midazolam. The patient arrives quite altered and is unable to give any additional history. The patient's boyfriend arrived much later. He says that the patient has not been drinking alcohol much lately. He says that he has been away on Wednesday and his mother said that the patient has been sleeping all day long. The boyfriend says he returned home on Wednesday morning and this morning the patient seemed tired but not frankly altered. He says that he thinks she may have been drinking a lot of water lately. Related Data Previous Rx's ?Medication ?Instructions ?Recorded folic acid 1 mg tablet 1 mg PO DAILY #30 tabs 05/24/23 magnesium oxide 400 mg (241.3 mg 400 mg PO BIDPC #4 tabs 05/24/23 magnesium) tablet multivitamin (Daily-Laura tablet) 1 tab PO DAILY #30 tabs 05/24/23 thiamine mononitrate (vit B1) 100 100 mg PO DAILY #30 tabs 05/24/23 mg tablet naltrexone microspheres 380 mg 380 mg IM Q4W #1 ea 05/31/23 intramuscular suspension,extended release (Vivitrol) naltrexone 50 mg tablet 50 mg PO DAILY #30 tabs 02/28/24 Allergies Allergy/AdvReac Type Severity Reaction Status Date / Time Iodinated Contrast Media AdvReac Hives Verified 06/18/24 21:33 [Contrast Dye] Review of Systems Review of Systems: Yes Unobtainable due to mental status PMFSH Past Medical History Medical History Alcoholism Depression Withdrawal seizures Social History Social History (Updated 04/21/21 @ 11:11 by Citlalli Knight DO) Household Members: Family Housing: House Do you presently have visiting nurse or other home services: No Alcohol intake: current Alcohol intake frequency: 0-2 drinks per day Alcohol type: hard liquor Patient Tobacco Use Status: Never used Tobacco Substance Use Type: Marijuana Advance Directives: No Advance Directives Information Provided: No service: No Physical Exam ED Vital Signs: Vital Signs - 24 hr 06/18/24 21:28 06/18/24 21:53 06/18/24 22:16 Temperature 97.1 F Pulse Rate 132 H 126 H Respiratory Rate 23 H 23 H Blood Pressure 157/96 H 170/101 H Pulse Oximetry 95 90 L Oxygen Delivery Method Oxymask Oxymask Oxygen Flow Rate 5 Fraction of Inspired Oxygen 100 BMI result Body Mass Index 20.5 Const Other: The patient arrived looking ill with a diminished level of consciousness. She did not seem to be having active seizures initially. Pupils were very large and reactive. She looked at me intentionally with painful stimuli and withdrew appropriately. She was nonverbal. HENMT Other: No sign of trauma to the head or the neck. Mucous membranes not obviously dry. Eyes Other: The patient initially seemed to have some roving eye movements. Pupils were large and reactive. She made eye contact with painful stimuli. Conjunctivae clear. Neck Neck: Yes normal visual inspection, Yes full ROM, Yes no lymphadenopathy and Yes no meningeal signs Resp Other: No kassi increased work of breathing. Breath sounds were fairly clear bilaterally. Cardio Rate: tachycardic Rhythm: regular rhythm Heart sounds: S1 normal heart sound present and S2 normal heart sound present GI Other: Abdomen is soft and not apparently tender. Skin Other: Skin is pale and dry Neuro Other: The patient presented with an altered mental status and diminished level of consciousness. The patient was nonverbal and did not respond to verbal stimuli. She responded to painful stimuli with withdrawal and would make eye contact with painful stimuli. No facial asymmetry. Eye movements intact. Symmetrical tone in the extremities. General: no meningeal signs Extrem Other: No trauma to the extremities. No edema. Medications Administered Generic Name Dose Route Start Last Admin Trade Name Freq PRN Reason Stop Dose Admin Propofol 1,000 mg in 100 mls @ 0 mls/hr 06/18/24 22:30 06/19/24 01:03 Diprivan IVCONT 50 mcg/kg/min .Q0M ARTURO 17.31 mls/hr Administration Protocol Per Protocol Norepinephrine Bitartrate 8 mg in 250 mls @ 0 mls/hr 06/18/24 23:45 06/18/24 23:52 Levophed IV 0.05 mcg/kg/min .Q0M ARTURO 5.41 mls/hr Administration Protocol Per Protocol Midazolam HCl 50 mg in 50 mls @ 2 mls/hr 06/19/24 00:30 06/19/24 00:50 Versed IVCONT 2 mg/hr .Q24H ARTURO 2 mls/hr Administration 2 MG/HR Potassium Chloride 40 meq in 100 mls @ 50 mls/hr 06/19/24 02:00 06/19/24 02:09 Potassium Chloride/H20 IV 06/19/24 07:59 100 mls/hr Q2H ARTURO Administration Fentanyl 1,000 mcg in 100 mls @ 0 mls/hr 06/19/24 02:15 06/19/24 02:14 Sublimaze/Ns IVCONT 50 mcg/hr .Q0M ARTURO 5 mls/hr Administration Protocol Per Protocol Sodium Chloride 3 ml 06/19/24 00:00 06/19/24 01:43 0.9 % Sodium Chloride Flush 3 Ml Syringe IVFLUSH 3 ml QSHIFT ARTURO Administration Discontinued Medications Generic Name Dose Route Start Last Admin Trade Name Freq PRN Reason Stop Dose Admin Calcium Chloride 1 gm 06/19/24 01:42 06/19/24 02:07 Calcium Chloride 1 Gm/10 Ml Syringe IVPUSH 06/19/24 01:43 1 gm STAT STA Administration Sodium Chloride 1,000 mls @ 999 mls/hr 06/18/24 21:30 06/18/24 22:43 Ns IV 06/18/24 22:30 Infused .Q1H1M ARTURO Infusion Sodium Chloride 100 mls @ 25 mls/hr 06/18/24 22:07 06/19/24 01:21 Sodium Chloride 3 % IV 06/19/24 02:06 25 mls/hr ONCE ONE Administration Potassium Chloride 10 meq in 100 mls @ 100 mls/hr 06/18/24 22:18 06/19/24 02:42 Potassium Chloride/H20 IV 06/18/24 23:17 Infused ONCE ONE Infusion Piperacillin Sod/Tazobactam 100 mls @ 200 mls/hr 06/18/24 23:06 06/19/24 02:22 Sod 4.5 gm/ Sodium Chloride IV 06/18/24 23:35 Infused ONCE ONE Infusion Lorazepam 2 mg 06/18/24 21:20 06/18/24 21:27 Lorazepam 2 Mg/Ml Vial IVPUSH 06/18/24 21:21 2 mg ONCE ONE Administration Lorazepam 2 mg 06/18/24 21:49 06/18/24 21:50 Lorazepam 2 Mg/Ml Vial IVPUSH 06/18/24 21:50 2 mg ONCE ONE Administration Midazolam HCl 4 mg 06/18/24 23:42 06/19/24 00:03 Midazolam Hcl/Pf 2 Mg/2 Ml Vial IVPUSH 06/18/24 23:43 4 mg ONCE ONE Administration Midazolam HCl 4 mg 06/19/24 00:26 06/19/24 00:32 Midazolam Hcl/Pf 2 Mg/2 Ml Vial IVPUSH 06/19/24 00:27 4 mg ONCE ONE Administration Phenobarbital Sodium 277 mg 06/19/24 02:00 06/19/24 02:37 Phenobarbital Sodium 130 Mg/Ml Im Once IM 06/19/24 02:01 277 mg ONCE ONE Administration Protocol Propofol 80 mg 06/18/24 22:20 06/18/24 22:44 Propofol 200 Mg/20 Ml Vial IVPUSH 06/18/24 22:21 80 mg ONCE ONE Administration Rocuronium [place] 50 mg 06/18/24 22:21 06/18/24 22:39 Rocuronium [place] 50 Mg/5 Ml Vial IVPUSH 06/18/24 22:22 50 mg ONCE ONE Administration Procedures Intubation Intubation Type:: Emergency Endotracheal Intubation Intubation Date:: 06/18/24 sedative: other (propofol) Mg Given: 80 paralytic: Rocuronium Mg Given: 50 Laryngoscope: fiber optic video scope ET Tube Size: 7.5 ET Tube Uncuffed: No Tube Placement Confirmation: visualized tube passing through cords, equal breath sounds bilaterally, no breath sounds over epigastrium and confirmation by capnometry Patient Tolerated Procedure: well Intubation Complications: none Medical Decision Making Medical Decision Making MDM Narrative: The patient arrived acutely ill. The patient looked chronically ill and there was a known history of significant alcohol use disorder. The initial presentation seemed to be seizures likely related to alcohol withdrawal. She was given IV lorazepam. She was given IV magnesium. She was tachycardic with a prolonged QT on EKG. Not long after arrival the patient had another seizure that did not last very long but at that point it was clear the patient would need to be intubated which would allow us to use significant amounts of propofol. The patient was intubated and placed on a ventilator. Labs started to come back which surprisingly showed significant hyponatremia and hypokalemia. At that point it was clear that the patient's seizures congestive well be related to her hyponatremia as to alcohol withdrawal. I ordered IV potassium and 3% saline spoke with Dr. Horton of Nephrology. The ICU was consulted and the patient was accepted for admission to our ICU. The patient's partner ultimately arrived and was able to say that he did not feel the patient has been drinking much alcohol recently but has been drinking a lot of Gatorade and water recently. This potentially indicates that the patient's seizures may be more related to hyponatremia secondary to excessive water drinking than alcohol withdrawal. Lab Data 06/18/24 21:29 06/19/24 01:07 Labs: Lab Results 06/18/24 06/18/24 06/18/24 Range/Units 21:29 21:40 21:44 WBC 12.7 H (4.8-10.8) X10*3/uL RBC 5.30 (4.20-5.50) X10*6/uL Hgb 14.5 (12.0-16.0) g/dl Hct 43.1 (37.0-47.0) % MCV 81.3 (80.0-98.0) fL MCH 27.3 (27.0-33.0) pg MCHC 33.5 (31.0-35.0) g/dl RDW 14.4 (11.0-16.0) % Plt Count 160 D (160-400) X10*3/uL MPV 9.7 (9.4-12.3) fL Immature Gran % (Auto) 1.2 H (0.0-0.4) % Neut % (Auto) 86.8 H (45-73) % Lymph % (Auto) 4.8 L (20-40) % [place] % (Auto) 7.0 (2-11) % Eos % (Auto) 0.0 (0-4) % Baso % (Auto) 0.2 (0-2) % Lymph # (Auto) 0.6 L (1.2-4.9) X10*3/uL [place] # (Auto) 0.9 (0.1-1.2) X10*3/uL Eos # (Auto) 0.0 (0.0-0.4) X10*3/uL Baso # (Auto) 0.0 (0.0-0.2) X10*3/uL Abs Immat Gran (auto) 0.15 H (0.00-0.03) X10*3/uL Absolute Neuts (auto) 11.0 H (2.0-8.3) x10*3/uL Absolute Nucleated RBC 0.000 (0.0-0.012) X10*3/uL Nucleated RBC % (auto) 0.0 (0.0-0.2) /100WBC Smear Tech's Comments VERIFIED PT 12.6 (11.1-13.3) SEC INR 1.0 (0.9-1.1) VBG pH 7.57 H (7.32-7.43) VBG pCO2 46 mmHg VBG pO2 72 mmHg VBG HCO3 42 H (22-26) mmol/L VBG O2 Saturation 94.0 % VBG Base Excess 18.0 mmol/L Sodium 114 L* D (135-145) mmol/L Potassium 2.4 L* (3.3-5.1) mmol/L Chloride 54 L D (96-108) mmol/L Carbon Dioxide 33 H (22-29) mmol/L Anion Gap 29 H (12-20) BUN 17 H (9-16) mg/dL Creatinine 0.86 (0.5-1.4) mg/dL Estim Creat Clear Calc 84.7 Estimated GFR > 60 Random Glucose 133 H (60-115) mg/dL Osmolality 245 L (281-305) mosm/kg Lactic Acid 11.6 H* (0.5-2.0) mmol/L Calcium 9.2 (8.4-10.2) mg/dL Magnesium 1.7 (1.6-2.6) mg/dL Total Bilirubin 2.2 H (0.0-1.0) mg/dL Direct Bilirubin 0.8 H (0.0-0.5) mg/dL AST 37 H (5-31) U/L ALT 11 (0-31) U/L Alkaline Phosphatase 158 H (39-117) U/L Total Creatine Kinase 367 H (26-140) U/L C-Reactive Protein 1.01 H (< or = 0.50) mg/dL B-Natriuretic Peptide 326 H (<100) pg/mL Total Protein 7.4 (6.5-8.0) g/dL Albumin 3.7 (3.5-5.0) g/dL Lipase 89 H (8-78) U/L TSH 1.14 (0.32-4.0) uIU/mL Beta HCG, Quant < 2 mIU/mL Hold Yellow Top See Note Ethyl Alcohol < 10 mg/dL Influenza Type A (PCR) NEGATIVE (Negative) Influenza Type B (PCR) NEGATIVE (Negative) RSV RNA Qual (PCR) NEGATIVE (Negative) SARS-CoV-2 RNA (RT-PCR) NEGATIVE (Negative) Critical Care Time Critical Care Time Critical Care Time: Yes Total Critical Care Time: 65 Attestation: The patient was critically ill with a high probability of imminent or life-threatening deterioration. ?I spent greater than 30 minutes of discontinuous time evaluating the patient, delivering critical care at the bedside, discussing evaluating data with consultants. ?Critical care time does not include time spent performing separately billable procedures or teaching. ?Time spent performing critical care with 65 minutes. Discharge Plan Discharge Clinical Impression: Status epilepticus, Alcohol withdrawal, Acute hyponatremia, Acute hypokalemia Patient Disposition: Admitted As Inpatient Discharge Date/Time: 06/19/24 00:39
--- NOTE | 2024-06-18 21:21 | ECG_ITS ---
Test Reason : AMS Blood Pressure : / mmHG Vent. Rate : 130 BPM Atrial Rate : 130 BPM P-R Int : 130 ms QRS Dur : 082 ms QT Int : 356 ms P-R-T Axes : 099 081 047 degrees QTc Int : 523 ms Sinus tachycardia Cannot rule out Anterior infarct , age undetermined Abnormal ECG When compared with ECG of 05-NOV-2023 16:17, No significant change was found Referred By: Elias Waldrop Electronically Signed By:MASOOD MAURER
[2024-06-18] MEDS: LORazepam 2 MG/ML VIAL IVPUSH ×2 (21:27→21:50)
[2024-06-18] MEDS: 0.9 % Sodium Chloride 1,000 ML 999 ML IV (21:27)
[2024-06-18 21:47] LABS: Prothrombin Time 12.6 SEC (11.1-13.3)
--- NOTE | 2024-06-18 21:48 | HE.PHANOTE ---
Aylin Spoke to Dr. Waldrop, wanted a 10mg/kg bag of phenobarbital for alcohol withdrawal related seizures. Dose: 577mg per actual body weight being less than ideal body weight.
--- NOTE | 2024-06-18 21:50 | PC.NURSE ---
witnessed seizure x2. pt medicated per DEC MD at beside.
[2024-06-18 21:51] LABS: VBG HCO3 42 mmol/L (22-26); VBG pCO2 46 mmHg; VBG pH 7.57 (7.32-7.43); VBG pO2 72 mmHg
[2024-06-18 21:51] LABS: Venous Blood Gas Refer to POC result
[2024-06-18 21:55] LABS: Lactic Acid 11.6 mmol/L (0.5-2.0)
[2024-06-18 22:02] LABS: B Type Natriuretic Peptide 326 pg/mL (<100)
[2024-06-18 22:07] LABS: Alanine Aminotransferase 11 U/L (0-31); Albumin Level 3.7 g/dL (3.5-5.0); Alkaline Phosphatase 158 U/L (39-117); Anion Gap 29 (12-20); Aspartate Amino Transferase 37 U/L (5-31); Bilirubin Direct 0.8 mg/dL (0.0-0.5); Bilirubin Total 2.2 mg/dL (0.0-1.0); Blood Urea Nitrogen 17 mg/dL (9-16); C Reactive Protein 1.01 mg/dL (< or = 0.50); Calcium 9.2 mg/dL (8.4-10.2); Carbon Dioxide 33 mmol/L (22-29); Chloride 54 mmol/L (96-108); Creatinine Clr Calc Pharmacy 84.7; Estimated Glomerular Filt Rate > 60; Ethanol < 10 mg/dL; Glucose Random 133 mg/dL (60-115); HCG Quantitative < 2 mIU/mL; Lipase 89 U/L (8-78); Magnesium 1.7 mg/dL (1.6-2.6); Potassium 2.4 mmol/L (3.3-5.1); Sodium 114 mmol/L (135-145); Total Protein 7.4 g/dL (6.5-8.0)
--- NOTE | 2024-06-18 22:08 | PC.NURSE ---
pt intubated by MD Waldrop after seizure 2156: sedated with 50mg Rocuronium, 80mg propofol (weight 60kg) 2158: intubated tube size 7.5, 25cm@lip 2199: propofol drip infusing to RAC at 50mcg/kg/min. rate 18ml/hr. max dose per MD Waldrop 2203: OG tube placed. cola colored contents draining
[2024-06-18 22:15] LABS: Basophils Percent Auto 0.2 % (0-2); Hematocrit 43.1 % (37.0-47.0); Imm Gran Abs Auto 0.15 X10*3/uL (0.00-0.03); Imm Gran Pct Auto 1.2 % (0.0-0.4); Lymphocytes Absolute Auto 0.6 X10*3/uL (1.2-4.9); Lymphocytes Percent Auto 4.8 % (20-40); MANUAL DIFF FLAG SCAN; Mean Corpuscular Volume 81.3 fL (80.0-98.0); Mean Platelet Volume 9.7 fL (9.4-12.3); Monocytes Absolute Auto 0.9 X10*3/uL (0.1-1.2); Neutrophils Percent Auto 86.8 % (45-73); Platelet Count 160 X10*3/uL (160-400); Red Cell Distribution Width 14.4 % (11.0-16.0); SCAN SMEAR FLAG 1; White Blood Count 12.7 X10*3/uL (4.8-10.8)
[2024-06-18 22:27] LABS: Influenza A PCR NEGATIVE (Negative); Influenza B PCR NEGATIVE (Negative); Resp Syncy Virus RNA Qual PCR NEGATIVE (Negative); SARS COV2 PCR INHOUSE NEGATIVE (Negative)
[2024-06-18] MEDS: Rocuronium Bromide 50 MG/5 ML VIAL IVPUSH (22:39)
[2024-06-18] MEDS: propofoL 1,000 MG/100 ML VIAL 18 MG IVCONT (22:40)
[2024-06-18] MEDS: propofoL 200 MG/20 ML VIAL 80 MG IVPUSH (22:44)
[2024-06-18 22:58] LABS: Hemoglobin 14.5 g/dl (12.0-16.0); Mean Corpuscular HGB Conc 33.5 g/dl (31.0-35.0); Mean Corpuscular Hemoglobin 27.3 pg (27.0-33.0)
[2024-06-18 23:00] LABS: SLIDE REVIEW VERIFIED
--- NOTE | 2024-06-18 23:12 | PC.NURSE ---
temp sensing carroll placed. thick cloudy sediment output at first, now urine dark sandeep 450ml output
--- NOTE | 2024-06-18 23:14 | PC.NURSE ---
report called to ICU
--- NOTE | 2024-06-18 23:16 | PM.CCHP ---
History of Present Illness Date of Service: 06/18/24 Attending physician on admission: Ciro Crowe Chief Complaint: Seizure The patient is a 33-year-old female with a past medical history of alcohol abuse with history of withdrawal seizures who presented to the emergency department ? after having seizures.? According to EMS,? boyfriend called because patient is seen unresponsive,? when paramedics arrived the patient was found in bed, seemingly in postictal.? In route to the hospital the patient had a witnessed seizure that lasted approximately 2 minutes,? they gave 2 mg IM ? Midazolam, establish IV access and give an additional 2 mg of IV? midazolam.? Boyfriend reports patient was sober for a couple weeks,? but unsure if she was drinking this weekend as boyfriend was out of town, reports that? patient was very sleepy all Wednesday.? He also reports? increase water intake ?On arrival to emergency department,? patient tachycardic, hypertensive, tachypneic and minimally responsive requiring emergent intubation for airway protection. Laboratory data was significant for WBC 12.7, serum sodium 114, potassium 2.4, chloride 54, serum bicarb 33, anion gap? 29, lactic acid 11.6, AST 37,? alk phos 158, CK 367.? ?Imaging:? ?Chest x-ray:? no acute findings ED COURSE:? ?Patient received a total of 4 mg of IV push Ativan, phenobarb 577 mg, 1 L bolus of normal saline,? bicarb IV push 50 mEq, and potassium 10 mEq Review of Systems Review of Systems: Yes unobtainable due to endotracheal tube PMFSH Past Medical History Medical History Alcoholism Depression Withdrawal seizures Social History Social History (Updated 04/21/21 @ 11:11 by Citlalli Knight DO) Household Members: Significant Other Housing: Unknown / Unable to assess Do you presently have visiting nurse or other home services: No Alcohol intake: current Alcohol intake frequency: 0-2 drinks per day Alcohol type: hard liquor Patient Tobacco Use Status: Tobacco use Unknown Use of substances other than those prescribed or required for medical reasons: Unknown Substance Use Type: Marijuana Currently Displaying Signs/Symptoms of Drug Intoxication Withdrawal: No Advance Directives: No Advance Directives Information Provided: No Patient : No service: No Meds Allergies Allergy/AdvReac Type Severity Reaction Status Date / Time Iodinated Contrast Media AdvReac Hives Verified 06/18/24 21:33 [Contrast Dye] Active Medications: Current Medications Enoxaparin Sodium (Enoxaparin Sodium 40 Mg/0.4 Ml Syringe) 40 mg SUBCUT Q24H [facility] Sodium Chloride (Sodium Chloride 3 %) 100 mls @ 25 mls/hr IV ONCE ONE Stop: 06/19/24 02:06 Potassium Chloride (Potassium Chloride/H20) 10 meq in 100 mls @ 100 mls/hr IV ONCE ONE Stop: 06/18/24 23:17 Propofol (Diprivan) 1,000 mg in 100 mls @ 0 mls/hr IVCONT .Q0M [facility]; Protocol Last Admin: 06/18/24 22:40 Dose: 51.99 mcg/kg/min, 18 mls/hr Piperacillin Sod/Tazobactam (Sod 4.5 gm/ Sodium Chloride) 100 mls @ 200 mls/hr IV ONCE ONE Stop: 06/18/24 23:35 Home Medications ?Medication ?Instructions ?Recorded ?Confirmed ?Last Taken ?Type hydroxyzine HCl 25 mg tablet 25 - 50 mg PO DAILY PRN anxiety 06/19/24 06/19/24 Unknown History hydroxyzine HCl 25 mg tablet 25 - 50 mg PO DAILY PRN anxiety 06/19/24 06/19/24 Unknown History magnesium oxide 400 mg (241.3 mg 400 mg PO BID 06/19/24 06/19/24 Unknown History magnesium) tablet omeprazole 20 mg capsule,delayed 20 mg PO BID 06/19/24 06/19/24 Unknown History release quetiapine 25 mg tablet 25 mg PO TID PRN anxiety 06/19/24 06/19/24 Unknown History quetiapine 50 mg tablet 50 - 100 mg PO BEDTIME 06/19/24 06/19/24 Unknown History sennosides 8.6 mg tablet (senna) 8.6 - 17.2 mg PO BEDTIME PRN 06/19/24 06/19/24 Unknown History constipation sucralfate 1 gram tablet 1 g PO QID 06/19/24 06/19/24 Unknown History Physical Exam Vital Signs: Vital Signs: Last Vital Signs Temp 97.1 F 06/18/24 21:28 Pulse 126 H 06/18/24 21:53 Resp 23 H 06/18/24 21:53 BP 170/101 H 06/18/24 21:53 Pulse Ox 90 L 06/18/24 21:53 O2 Del Method Oxymask 06/18/24 21:53 O2 Flow Rate 5 06/18/24 21:53 FiO2 100 06/18/24 22:16 Oxygen Flow Rate 8 06/18/24 21:28 BMI result Body Mass Index 20.5 ?General:? Intubated ?HEENT:? Head is normocephalic, atraumatic, pupils equal round reactive to light accommodation bilaterally.? Extraocular movements appear intact.? Buccal mucosa is dry ?Cardiac:? Sinus tach, Clear S1-S2, no murmurs rubs or gallops. ?Pulmonary:? Clear to auscultation, no wheezes, rales or rhonchi. ?Abdomen:? ?Abdomen soft, non-tender, non-distended. Normal bowel sounds. No pulsatile mass. No hepatosplenomegaly. ?Musculoskeletal:? Moving all 4 extremities randomly and to painful stimuli. Gait not assessed at this point. ?Neurologic:? + gag, No focal deficits noted.Motor strength as above.?? ?Skin:? Intact, no lesions, edema, erythema, clubbing or cyanosis.? No ulcers. Vascular:? 2+ pulses upper and lower extremities distally.? Results Labs 06/19/24 05:08 06/19/24 05:08 Labs: Laboratory Results - last 24 hr 06/18/24 06/18/24 06/18/24 21:29 21:40 21:44 MCV 81.3 MCH 27.3 MCHC 33.5 RDW 14.4 Plt Count 160 D MPV 9.7 Immature Gran % (Auto) 1.2 H Neut % (Auto) 86.8 H Lymph % (Auto) 4.8 L Hartley % (Auto) 7.0 Eos % (Auto) 0.0 Baso % (Auto) 0.2 Lymph # (Auto) 0.6 L Hartley # (Auto) 0.9 Eos # (Auto) 0.0 Baso # (Auto) 0.0 Abs Immat Gran (auto) 0.15 H Absolute Neuts (auto) 11.0 H Absolute Nucleated RBC 0.000 Nucleated RBC % (auto) 0.0 Smear Tech's Comments VERIFIED PT 12.6 INR 1.0 VBG pH 7.57 H VBG pCO2 46 VBG pO2 72 VBG HCO3 42 H VBG O2 Saturation 94.0 VBG Base Excess 18.0 Anion Gap 29 H Estim Creat Clear Calc 84.7 Estimated GFR > 60 Random Glucose 133 H Lactic Acid 11.6 H* Calcium 9.2 Magnesium 1.7 Total Bilirubin 2.2 H Direct Bilirubin 0.8 H AST 37 H ALT 11 Alkaline Phosphatase 158 H Total Creatine Kinase 367 H C-Reactive Protein 1.01 H B-Natriuretic Peptide 326 H Total Protein 7.4 Albumin 3.7 Lipase 89 H Beta HCG, Quant < 2 Hold Yellow Top See Note Ethyl Alcohol < 10 Influenza Type A (PCR) NEGATIVE Influenza Type B (PCR) NEGATIVE RSV RNA Qual (PCR) NEGATIVE SARS-CoV-2 RNA (RT-PCR) NEGATIVE Imaging Radiologist's Impressions: Impressions Chest X-Ray 06/18/24 22:45 IMPRESSION: No active cardiopulmonary disease. Assessment and Plan (1) Status epilepticus: Status: Acute (2) Acute hyponatremia: Status: Acute (3) Alcohol withdrawal: Status: Acute (4) Acute hypokalemia: Status: Acute (5) Acute respiratory failure: Status: Acute Plan ?33-year-old female with a past medical history of alcohol abuse with history of withdrawal seizures? admitted to ICU with status epilepticus, acute hyponatremia and? alcohol withdrawal syndrome Neuro:? Status epilepticus- ? patient has sustained about 2 minutes seizure outside of the hospital,? and sustained another seizure while in the emergency department, she has multiple possible causes for acute seizure,? alcohol withdrawal versus acute hyponatremia.? Patient seemed to be having withdrawal? symptoms since yesterday,? also has a history of withdrawal seizures.? Her sodium was 114.? Nephrology consulted by ED physician,? who recommended 3% saline.? Patient received a L bolus of normal saline in the ED.? will give 3% cautiously.? Cover with Ativan,? phenobarb in the emergency department.? We will obtain head CT. Continue frequent neuro exams.?? Lab and since December of 2022.? Cardiac:?? ?Hypotension:? from sedation,? no evidence of severe sepsis.? Wean off Levophed as tolerated.? ?Elevated lactic- ? no evidence of septic shock, ?lactic went from 11 to 2, elevated lactic is due to? seizures.? Pulmonary:? ?Acute respiratory failure:? patient requiring emergent intubation for airway protection due to seizures.? Wean off ventilator as tolerated.? Renal:?? ?Acute hyponatremia:? patient has a history of alcohol abuse,? also patient?s boyfriend reported patient with? polydipsia and and significant increase water intake in the past couple of days.? We will send urine studies and sereum osm. Nephrology consulted by ED? physician,? Dr. Bray, Recommend initiation of 3% saline. Appreciate nephrology recommendations. Water restriction.? Frequent neuro checks. Serial serum sodium.? ?Hypokalemia,? K replaced in the emergency department.? GI:?? ?No acute issues Endo:?? ?No acute issues Heme/Onc:? ?No acute? issues ID:? ?Leukocytosis-? likely from seizures, no evidence of infection. But will order blood cultures are pending, continue broad-spectrum antibiotics.? Will give 1 empiric dose of Zosyn for possible aspiration during intubation.? Psych: ? alcohol abuse: ? despite patient being intubated,? due to seizures we will initiate phenobarb protocol.? Continue thiamine and folic acid Diet: NPO Prophylaxis: ? Subcut lovenox Code? status: ? ? FULL CODE.? Critical care time: x 90 min of critical care time?
[2024-06-18 23:38] LABS: Reflex Lactate? Lactic Acid Added
[2024-06-18] MEDS: Norepinephrine Bitartrate/D5W 8 MG/250 ML PLAST..BAG 5.41 MG IV (23:52)
--- NOTE | 2024-06-18 23:53 | PC.NURSE ---
levophed started BP 95/72,then 117/42, HR 132. ICU PA aware of vitals, okayed to start infusion at 0.05 mcg/kg/min
[2024-06-18 23:57] LABS: Osmolality, Serum 245 mosm/kg (281-305)
[2024-06-19] VITALS (40 sets, daily range): BP systolic 88–131; BP diastolic 42–88; PULSE 95–131; RESP 14–31; TEMP 34.6–38.7; O2SAT 8–100; BMI 18.6
[2024-06-19] MEDS: Midazolam HCl/PF 2 MG/2 ML VIAL 4 MG IVPUSH ×2 (00:03→00:32)
[2024-06-19 00:15] LABS: Thyroid Stimulating Hormone 1.14 uIU/mL (0.32-4.0)
[2024-06-19] MEDS: Midazolam HCl/NS 50 MG/50 ML PLAST..BAG IVCONT (00:50)
[2024-06-19] MEDS: propofoL 1,000 MG/100 ML VIAL 17.31 MG IVCONT ×2 (01:03→06:00)
--- NOTE | 2024-06-19 01:17 | W.PM.CCHP ---
Procedures Date of Service Date of Service: 06/19/24 <Ivy Snider NP - Last Filed: 06/19/24 01:18> 06/19/24 <Ciro Crowe MD - Last Filed: 06/19/24 09:52> Central Line Placement Right IJ: Central Line Comments: Patient with poor peripheral vascular access, unable to draw labs, requiring emergent line. Right internal jugular triple lumen central venous catheter placed in usual sterile conditions under ultrasound guidance for appropriate vascular access without immediate complications. Central line position verified with Chest XRAY. <Ivy Snider NP - Last Filed: 06/19/24 01:18> Consent for Procedure: Emergent-no informed consent obtained <Ivy Snider NP - Last Filed: 06/19/24 01:18> Time out performed: Yes <Ivy Snider NP - Last Filed: 06/19/24 01:18> Sterile Technique Used: Yes <Ivy Snider NP - Last Filed: 06/19/24 01:18> Patient placed on monitor/pulse ox: No <Ivy Snider NP - Last Filed: 06/19/24 01:18> prep: mask, gown and gloves <Ivy Snider NP - Last Filed: 06/19/24 01:18> Central line prep: Chlorhexidine scrub <Ivy Snider NP - Last Filed: 06/19/24 01:18> Ultrasound used for placement: Yes <Ivy Snider NP - Last Filed: 06/19/24 01:18> Central line lumen inserted: triple <Ivy Snider NP - Last Filed: 06/19/24 01:18> Post procedure: sutured in place, good blood return, all ports aspirated, flushed, capped and sterile dressing applied <Ivy Snider NP - Last Filed: 06/19/24 01:18> Post procedure x-ray: tip of catheter in good position <Ivy Snider NP - Last Filed: 06/19/24 01:18> Patient tolerated procedure: well and no complications <Ivy Snider NP - Last Filed: 06/19/24 01:18> Complications: none <Ivy Snider NP - Last Filed: 06/19/24 01:18>
[2024-06-19 01:20] LABS: Appearance Urine Clear; Color Urine Yellow; Glucose Urine UA Negative (Negative); Leukocyte Esterase Urine Negative (Negative); Nitrite Urine Negative (Negative); UMIC TRIGGER UACC YES; Urine Blood Large (3+) (Negative); Urine Ketones 15 mg/dL (Negative); Urine Protein 30 (1+) mg/dL (Neg-Trace)
[2024-06-19] MEDS: Sodium Chloride 3 % 100 ML 25 ML IV (01:21)
[2024-06-19 01:23] LABS: Bacteria Urine None Seen (None Seen); Hyaline Casts Urine 0-2 /LPF (0-2); Squamous Epithelial Cell Urine 0-2 /HPF (0-2); WBC Urine 0-5 /HPF (0-5)
[2024-06-19 01:24] LABS: VBG Base Excess 22.1 mmol/L; VBG HCO3 40 mmol/L (22-26); VBG pCO2 25 mmHg; VBG pO2 50 mmHg
[2024-06-19 01:31] LABS: Amphetamine Screen Urine Not Detected (Not Detect); Barbiturates, Urine Not Detected (Not Detect); Benzodiazepines Screen Urine POSITIVE (Not Detect); Buprenorphine Scr Not Detected (Not Detect); Cannabinoid Screen Urine Not Detected (Not Detect); Cocaine Screen Urine Not Detected (Not Detect); Fentanyl, urine Not Detected (Not Detect); Methadone Screen, Urine Not Detected (Not Detect); Opiate Screen Urine Not Detected (Not Detect); Oxycodone Screen Urine Not Detected (Not Detect); Phencyclidine Screen Urine Not Detected (Not Detect)
[2024-06-19 01:36] LABS: Anion Gap 21 (12-20); Blood Urea Nitrogen 16 mg/dL (9-16); Calcium 8.3 mg/dL (8.4-10.2); Carbon Dioxide 32 mmol/L (22-29); Chloride 64 mmol/L (96-108); Creatinine Clr Calc Pharmacy 110.4; Estimated Glomerular Filt Rate > 60; Glucose Random 117 mg/dL (60-115); Potassium 1.8 mmol/L (3.3-5.1); Sodium 115 mmol/L (135-145)
[2024-06-19] MEDS: Potassium Chloride/H20 10 MEQ/100 ML PIGGYBACK 100 MEQ IV (01:40)
[2024-06-19 01:42] LABS: Osmolality Urine 393 mosm/kg (373-1093)
[2024-06-19] MEDS: Piperacillin Sodium/Tazobactam 4.5 GM in 0.9 % Sodium Chloride 100 ML IV (01:42)
[2024-06-19] MEDS: 0.9 % Sodium Chloride Flush 3 ML SYRINGE IVFLUSH ×3 (01:43→15:03)
[2024-06-19 02:05] LABS: Venous Blood Gas Refer to POC result
[2024-06-19] MEDS: Calcium Chloride 1 GM/10 ML SYRINGE IVPUSH (02:07)
[2024-06-19] MEDS: Potassium Chloride/H20 40 MEQ/100 ML PIGGYBACK 100 MEQ IV (02:09)
[2024-06-19] MEDS: fentaNYL citrate/NS 1,000 MCG/100 ML PLAST..BAG 5 MCG IVCONT (02:14)
[2024-06-19 02:21] LABS: ABG Base Excess 19.3 mmol/L; ABG HCO3 37 mmol/L (22-26); ABG pCO2 25 mmHg (32-45); ABG pH 7.78 (7.35-7.45); ABG pO2 68 mmHg (83-108)
[2024-06-19 02:33] LABS: ABG Refer to POC result
[2024-06-19] MEDS: PHENobarbitaL sodium 130 MG/ML IM ONCE 277 MG IM (02:37)
[2024-06-19] MEDS: Potassium Chloride/H20 40 MEQ/100 ML PIGGYBACK 50 MEQ IV ×3 (03:16→08:11)
[2024-06-19] MEDS: Chlorhexidine Gluc Oral Rinse 15 ML MOUTHWASH BUCCAL ×4 (03:16→20:33)
[2024-06-19 03:25] LABS: VBG Base Excess 21.5 mmol/L; VBG HCO3 42 mmol/L (22-26); VBG pCO2 33 mmHg; VBG pH 7.71 (7.32-7.43); VBG pO2 68 mmHg
[2024-06-19 03:25] LABS: Venous Blood Gas Refer to POC result
[2024-06-19 03:39] LABS: Anion Gap 17 (12-20); Blood Urea Nitrogen 16 mg/dL (9-16); Calcium 10.2 mg/dL (8.4-10.2); Carbon Dioxide 35 mmol/L (22-29); Chloride 67 mmol/L (96-108); Creatinine Clr Calc Pharmacy 99.8; Estimated Glomerular Filt Rate > 60; Glucose Random 114 mg/dL (60-115); Magnesium 1.5 mg/dL (1.6-2.6); Phosphorus 1.1 mg/dL (2.7-4.5); Potassium 2.8 mmol/L (3.3-5.1); Sodium 116 mmol/L (135-145)
[2024-06-19] MEDS: Sodium,Potassium Phosphates POWD.PACK 2 PACKET OG-TUBE (03:59)
[2024-06-19] MEDS: Magnesium Sulfate/H2O 2 GM/50 ML PIGGYBACK IV (04:02)
[2024-06-19 05:28] LABS: VBG Base Excess 18.5 mmol/L; VBG HCO3 40 mmol/L (22-26); VBG pCO2 36 mmHg; VBG pH 7.66 (7.32-7.43); VBG pO2 58 mmHg
[2024-06-19 05:36] LABS: PLT CLUMP 1; Red Cell Distribution Width 14.4 % (11.0-16.0); SCAN SMEAR FLAG 1
[2024-06-19 05:37] LABS: Basophils Percent Auto 0.2 % (0-2); Eosinophils Percent Auto 0.1 % (0-4); Hematocrit 34.2 % (37.0-47.0); Imm Gran Pct Auto 0.8 % (0.0-0.4); Lymphocytes Absolute Auto 0.8 X10*3/uL (1.2-4.9); Lymphocytes Percent Auto 6.1 % (20-40); Mean Corpuscular Volume 81.2 fL (80.0-98.0); Mean Platelet Volume 10.8 fL (9.4-12.3); Monocytes Absolute Auto 0.9 X10*3/uL (0.1-1.2); Monocytes Percent Auto 7.2 % (2-11); NRBC Pct Auto 0.2 /100WBC (0.0-0.2); Neutrophils Absolute Auto 10.6 x10*3/uL (2.0-8.3); Neutrophils Percent Auto 85.6 % (45-73); Red Blood Count 4.21 X10*6/uL (4.20-5.50)
[2024-06-19] MEDS: PHENobarbitaL sodium 130 MG/ML VIAL IM Q3Hx2 208 MG IM ×2 (05:47→08:22)
[2024-06-19 05:53] LABS: Alanine Aminotransferase 11 U/L (0-31); Albumin Level 3.1 g/dL (3.5-5.0); Alkaline Phosphatase 123 U/L (39-117); Anion Gap 16 (12-20); Aspartate Amino Transferase 34 U/L (5-31); Bilirubin Total 2.6 mg/dL (0.0-1.0); Blood Urea Nitrogen 15 mg/dL (9-16); Calcium 9.6 mg/dL (8.4-10.2); Carbon Dioxide 34 mmol/L (22-29); Chloride 69 mmol/L (96-108); Creatinine Clr Calc Pharmacy 98.4; Estimated Glomerular Filt Rate > 60; Glucose Random 118 mg/dL (60-115); Magnesium 2.7 mg/dL (1.6-2.6); Phosphorus 1.1 mg/dL (2.7-4.5); Potassium 3.2 mmol/L (3.3-5.1); Sodium 116 mmol/L (135-145)
[2024-06-19 05:55] LABS: Venous Blood Gas Refer to POC result
[2024-06-19 06:10] LABS: Hemoglobin 11.5 g/dl (12.0-16.0); Mean Corpuscular HGB Conc 33.5 g/dl (31.0-35.0); Mean Corpuscular Hemoglobin 27.2 pg (27.0-33.0); Platelet Count 114 X10*3/uL (160-400); White Blood Count 12.4 X10*3/uL (4.8-10.8)
[2024-06-19 06:11] LABS: MANUAL DIFF FLAG NO
--- NOTE | 2024-06-19 06:59 | PC.NURSE ---
Patient admitted to ICU from ED at approx. 0030. Upon initial assessment, patient intubated and sedated on propofol (see MAR), RASS 2+. Versed and fentanyl gtts added per EMBEDDED SOFTWARE MANAGER, see MAR. Pheno protocol started, see MAR. Tmax 101.7 via core bladder probe, cool bath given. ST up to 130s on tele, SBP over 90, MAP over 65, Levo gtt running and titrated per DEC. TLC placed to right IJ, placement confirmed by pCXR. ETT #7.5, 25cm @ lip. On ACVC settings, EMBEDDED SOFTWARE MANAGER aware of critical blood gases, vent settings changed by RT, currently 14/360/5/24%. Synchronous when not stimulated, when awake, asynchronous, tachypneic and overbreathing the vent. OGT clamped. Rodarte catheter in place, draining concentrated, sandeep urine. Skin overall intact, some diffuse blanchable redness and scattered bruising. Multiple electrolyte replacements given per MAR. Per EMBEDDED SOFTWARE MANAGER Tylor, gave 25mLs of 500mL bag of 3% saline IV over 1 hour, see MAR. Family updated at the bedside on patient status and plan of care. Bed locked in lowest position, bed alarm on, repositioned Q2HR with pillows and wedges.
[2024-06-19] MEDS: Sodium,Potassium Phosphates POWD.PACK 2 PACKET PO ×3 (07:45→15:05)
[2024-06-19] MEDS: Thiamine HCL 100 MG in 0.9 % Sodium Chloride 100 ML 202 MG IV ×2 (08:10→20:30)
[2024-06-19] MEDS: Famotidine/PF 20 MG/2 ML VIAL IVPUSH (08:10)
[2024-06-19] MEDS: Enoxaparin Sodium 40 MG/0.4 ML SYRINGE SUBCUT (08:11)
[2024-06-19] MEDS: Folic Acid 1 MG in 0.9 % Sodium Chloride 50 ML 100.4 MG IV (08:39)
--- NOTE | 2024-06-19 09:53 | P.PNCC_ITS ---
Subjective Subjective Date of Service: 06/19/24 Interval History: 33-year-old lady with underlying history of alcohol abuse with delirium tremens with seizures admitted on 06/18/2024 seizures and hyponatremia requiring intubation for airway protection. Patient received initial bolus of 3% saline with her sodium from 114 up to 116. No events overnight. No seizure recurrence. Critical Care Time (minutes): 60 Physical Exam 2 Vital Signs: Vital Signs: Last Vital Signs Temp 98.8 F 06/19/24 09:00 Pulse 96 06/19/24 09:10 Resp 14 06/19/24 09:00 BP 88/44 L 06/19/24 09:10 Pulse Ox 98 06/19/24 09:00 O2 Del Method Mechanical Ventil ation 06/19/24 09:00 O2 Flow Rate 5 06/18/24 21:53 FiO2 24 06/19/24 09:00 Oxygen Flow Rate 8 06/18/24 21:28 BMI result Body Mass Index 18.6 Const: General: no acute distress and other (Sedated on the vent) Eyes: Sclerae: sclerae normal Neck: Neck: Yes no lymphadenopathy, Yes trachea midline and Yes supple Resp: Auscultation: clear to auscultation bilaterally Cardio: Rate: regular rate Rhythm: regular rhythm Heart sounds: no gallops, no murmurs and no rubs GI: Palpation (GI): Soft to palpation and Other GI palpation findings present ( Nontender) Auscultation: normal bowel sounds Extrem: General: Yes no pedal edema, No clubbing and No cyanosis Objective Data Labs 06/19/24 05:08 06/19/24 05:08 Labs: Laboratory Results - last 24 hr 06/18/24 06/18/24 06/18/24 21:29 21:40 21:44 WBC 12.7 H RBC 5.30 Hgb 14.5 Hct 43.1 MCV 81.3 MCH 27.3 MCHC 33.5 RDW 14.4 Plt Count 160 D MPV 9.7 Immature Gran % (Auto) 1.2 H Neut % (Auto) 86.8 H Lymph % (Auto) 4.8 L [place] % (Auto) 7.0 Eos % (Auto) 0.0 Baso % (Auto) 0.2 Lymph # (Auto) 0.6 L [place] # (Auto) 0.9 Eos # (Auto) 0.0 Baso # (Auto) 0.0 Abs Immat Gran (auto) 0.15 H Absolute Neuts (auto) 11.0 H Absolute Nucleated RBC 0.000 Nucleated RBC % (auto) 0.0 Smear Tech's Comments VERIFIED PT 12.6 INR 1.0 O2 Saturation ABG pH at Pt Temp ABG pCO2 at Pt Temp ABG pO2 at Pt Temp ABG HCO3 ABG Base Excess (Actual) VBG pH 7.57 H VBG pCO2 46 VBG pO2 72 VBG HCO3 42 H VBG O2 Saturation 94.0 VBG Base Excess 18.0 Sodium 114 L* D Potassium 2.4 L* Chloride 54 L D Carbon Dioxide 33 H Anion Gap 29 H BUN 17 H Creatinine 0.86 Estim Creat Clear Calc 84.7 Estimated GFR > 60 Random Glucose 133 H Osmolality 245 L Lactic Acid 11.6 H* Lactic Acid F/U @ 2Hr Calcium 9.2 Phosphorus Magnesium 1.7 Total Bilirubin 2.2 H Direct Bilirubin 0.8 H AST 37 H ALT 11 Alkaline Phosphatase 158 H Total Creatine Kinase 367 H C-Reactive Protein 1.01 H B-Natriuretic Peptide 326 H Total Protein 7.4 Albumin 3.7 Lipase 89 H TSH 1.14 Beta HCG, Quant < 2 Hold Yellow Top See Note Urine Color Urine Appearance Urine pH Ur Specific [place] Urine Protein Urine Glucose (UA) Urine Ketones Urine Blood Urine Nitrite Ur Leukocyte Esterase Urine RBC Urine WBC Ur Squamous Epith Cells Urine Bacteria Hyaline Casts Urine Osmolality Ur Random Sodium Urine Opiates Screen Ur Buprenorphine Scrn Ur Oxycodone Screen Urine Methadone Screen Urine Fentanyl Screen Ur Barbiturates Screen Ur Phencyclidine Scrn Ur Amphetamines Screen U Benzodiazepines Scrn Urine Cocaine Screen U Marijuana (THC) Screen Ethyl Alcohol < 10 Influenza Type A (PCR) NEGATIVE Influenza Type B (PCR) NEGATIVE RSV RNA Qual (PCR) NEGATIVE SARS-CoV-2 RNA (RT-PCR) NEGATIVE 06/19/24 06/19/24 06/19/24 00:59 01:00 01:07 WBC RBC Hgb Hct MCV MCH MCHC RDW Plt Count MPV Immature Gran % (Auto) Neut % (Auto) Lymph % (Auto) [place] % (Auto) Eos % (Auto) Baso % (Auto) Lymph # (Auto) [place] # (Auto) Eos # (Auto) Baso # (Auto) Abs Immat Gran (auto) Absolute Neuts (auto) Absolute Nucleated RBC Nucleated RBC % (auto) Smear Tech's Comments PT INR O2 Saturation ABG pH at Pt Temp ABG pCO2 at Pt Temp ABG pO2 at Pt Temp ABG HCO3 ABG Base Excess (Actual) VBG pH VBG pCO2 VBG pO2 VBG HCO3 VBG O2 Saturation VBG Base Excess Sodium 115 L* Potassium 1.8 L* D Chloride 64 L Carbon Dioxide 32 H Anion Gap 21 H BUN 16 Creatinine 0.66 Estim Creat Clear Calc 110.4 Estimated GFR > 60 Random Glucose 117 H Osmolality Lactic Acid Lactic Acid F/U @ 2Hr 2.0 Calcium 8.3 L D Phosphorus Magnesium Total Bilirubin Direct Bilirubin AST ALT Alkaline Phosphatase Total Creatine Kinase C-Reactive Protein B-Natriuretic Peptide Total Protein Albumin Lipase TSH Beta HCG, Quant Hold Yellow Top Urine Color Yellow Urine Appearance Clear Urine pH 7.0 Ur Specific [place] 1.010 Urine Protein 30 (1+) H Urine Glucose (UA) Negative Urine Ketones 15 Urine Blood Large (3+) H Urine Nitrite Negative Ur Leukocyte Esterase Negative Urine RBC 6-10 H Urine WBC 0-5 Ur Squamous Epith Cells 0-2 Urine Bacteria None Seen Hyaline Casts 0-2 Urine Osmolality 393 Ur Random Sodium 22.0 Urine Opiates Screen Not Detected Ur Buprenorphine Scrn Not Detected Ur Oxycodone Screen Not Detected Urine Methadone Screen Not Detected Urine Fentanyl Screen Not Detected Ur Barbiturates Screen Not Detected Ur Phencyclidine Scrn Not Detected Ur Amphetamines Screen Not Detected U Benzodiazepines Scrn POSITIVE H Urine Cocaine Screen Not Detected U Marijuana (THC) Screen Not Detected Ethyl Alcohol Influenza Type A (PCR) Influenza Type B (PCR) RSV RNA Qual (PCR) SARS-CoV-2 RNA (RT-PCR) 06/19/24 06/19/24 06/19/24 01:12 02:12 03:13 WBC RBC Hgb Hct MCV MCH MCHC RDW Plt Count MPV Immature Gran % (Auto) Neut % (Auto) Lymph % (Auto) [place] % (Auto) Eos % (Auto) Baso % (Auto) Lymph # (Auto) [place] # (Auto) Eos # (Auto) Baso # (Auto) Abs Immat Gran (auto) Absolute Neuts (auto) Absolute Nucleated RBC Nucleated RBC % (auto) Smear Tech's Comments PT INR O2 Saturation 95.0 ABG pH at Pt Temp 7.78 H* ABG pCO2 at Pt Temp 25 L ABG pO2 at Pt Temp 68 L ABG HCO3 37 H ABG Base Excess (Actual) 19.3 VBG pH 7.80 H* VBG pCO2 25 VBG pO2 50 VBG HCO3 40 H VBG O2 Saturation 90.0 VBG Base Excess 22.1 Sodium 116 L* Potassium 2.8 L* D Chloride 67 L Carbon Dioxide 35 H Anion Gap 17 BUN 16 Creatinine 0.73 Estim Creat Clear Calc 99.8 Estimated GFR > 60 Random Glucose 114 Osmolality Lactic Acid Lactic Acid F/U @ 2Hr Calcium 10.2 D Phosphorus 1.1 L Magnesium 1.5 L Total Bilirubin Direct Bilirubin AST ALT Alkaline Phosphatase Total Creatine Kinase C-Reactive Protein B-Natriuretic Peptide Total Protein Albumin Lipase TSH Beta HCG, Quant Hold Yellow Top Urine Color Urine Appearance Urine pH Ur Specific [place] Urine Protein Urine Glucose (UA) Urine Ketones Urine Blood Urine Nitrite Ur Leukocyte Esterase Urine RBC Urine WBC Ur Squamous Epith Cells Urine Bacteria Hyaline Casts Urine Osmolality Ur Random Sodium Urine Opiates Screen Ur Buprenorphine Scrn Ur Oxycodone Screen Urine Methadone Screen Urine Fentanyl Screen Ur Barbiturates Screen Ur Phencyclidine Scrn Ur Amphetamines Screen U Benzodiazepines Scrn Urine Cocaine Screen U Marijuana (THC) Screen Ethyl Alcohol Influenza Type A (PCR) Influenza Type B (PCR) RSV RNA Qual (PCR) SARS-CoV-2 RNA (RT-PCR) 06/19/24 06/19/24 06/19/24 03:15 05:08 05:18 WBC 12.4 H RBC 4.21 D Hgb 11.5 L D Hct 34.2 L D MCV 81.2 MCH 27.2 MCHC 33.5 RDW 14.4 Plt Count 114 L D MPV 10.8 Immature Gran % (Auto) 0.8 H Neut % (Auto) 85.6 H Lymph % (Auto) 6.1 L [place] % (Auto) 7.2 Eos % (Auto) 0.1 Baso % (Auto) 0.2 Lymph # (Auto) 0.8 L [place] # (Auto) 0.9 Eos # (Auto) 0.0 Baso # (Auto) 0.0 Abs Immat Gran (auto) 0.10 H Absolute Neuts (auto) 10.6 H Absolute Nucleated RBC 0.020 H Nucleated RBC % (auto) 0.2 Smear Tech's Comments PT INR O2 Saturation ABG pH at Pt Temp ABG pCO2 at Pt Temp ABG pO2 at Pt Temp ABG HCO3 ABG Base Excess (Actual) VBG pH 7.71 H* 7.66 H* VBG pCO2 33 36 VBG pO2 68 58 VBG HCO3 42 H 40 H VBG O2 Saturation 95.0 89.0 VBG Base Excess 21.5 18.5 Sodium 116 L* Potassium 3.2 L Chloride 69 L Carbon Dioxide 34 H Anion Gap 16 BUN 15 Creatinine 0.74 Estim Creat Clear Calc 98.4 Estimated GFR > 60 Random Glucose 118 H Osmolality Lactic Acid Lactic Acid F/U @ 2Hr Calcium 9.6 Phosphorus 1.1 L Magnesium 2.7 H Total Bilirubin 2.6 H Direct Bilirubin AST 34 H ALT 11 Alkaline Phosphatase 123 H Total Creatine Kinase C-Reactive Protein B-Natriuretic Peptide Total Protein 6.0 L Albumin 3.1 L Lipase TSH Beta HCG, Quant Hold Yellow Top Urine Color Urine Appearance Urine pH Ur Specific [place] Urine Protein Urine Glucose (UA) Urine Ketones Urine Blood Urine Nitrite Ur Leukocyte Esterase Urine RBC Urine WBC Ur Squamous Epith Cells Urine Bacteria Hyaline Casts Urine Osmolality Ur Random Sodium Urine Opiates Screen Ur Buprenorphine Scrn Ur Oxycodone Screen Urine Methadone Screen Urine Fentanyl Screen Ur Barbiturates Screen Ur Phencyclidine Scrn Ur Amphetamines Screen U Benzodiazepines Scrn Urine Cocaine Screen U Marijuana (THC) Screen Ethyl Alcohol Influenza Type A (PCR) Influenza Type B (PCR) RSV RNA Qual (PCR) SARS-CoV-2 RNA (RT-PCR) Progress Note: A&P Assessment and plan (1) Acute respiratory failure: Status: Acute (2) Acute hypokalemia: Status: Acute (3) Acute hyponatremia: Status: Acute (4) Alcohol withdrawal: Status: Acute (5) Status epilepticus: Status: Acute Plan Assessment: 33-year-old lady admitted with seizures, alcohol withdrawal acute hyponatremia requiring intubation protection Plan: Neuro: Seizures, either secondary to hyponatremia alcohol withdrawal. No recurrence. Delirium tremens, continue to titrate off sedative drips as tolerated. CT head with no acute findings. Cardiac: No acute issues. Pulmonary: Intubated for airway protection, continue to titrate off ventilatory support as tolerated. Renal: Hyponatremia status post initial 3% saline bolus. Nephrology service care appreciated. Continue to monitor electrolytes. Endo: No acute issues. GI: No acute issues. ID: No acute issues Heme/Onc: No acute issues. Psych: No acute issues. Miscellaneous: No acute issues. Prophylaxis: Lovenox, famotidine Diet: NPO Critical care time spent: 60 minutes Quality Stroke Does the patient have a stroke diagnosis?: No VTE Prior VTE?: No VTE Risk Level:: Medical - moderate - high VTE Device Contraindication: N/A - Device Ordered VTE Drug Contraindication: N/A - Med Ordered
--- NOTE | 2024-06-19 10:22 | PM.CNNEP ---
History of Present Illness Reason for Consult Consult date: 06/19/24 Reason for consult: Hyponatremia Chief Complaint Chief complaint: Seizure/Acute hyponatremia History of Present Illness Narrative: Details are taken from EMR, ER MD and primary medical team as she is intubated and ventilated. 33-year-old female with history of alcohol abuse with history of withdrawal seizures who presented to the emergency department ?after having seizures.? According to EMS,? boyfriend called because patient is seen unresponsive,? when paramedics arrived the patient was found in bed, seemingly in post ictal.? Enroute to the hospital the patient had a witnessed seizure that lasted approximately 2 minutes,? they gave 2 mg IM ? Midazolam, establish IV access and give an additional 2 mg of IV? midazolam.? Boyfriend reports patient was sober for a couple weeks,? but unsure if she was drinking this weekend as boyfriend was out of town, reports that? patient was very sleepy all Wednesday.? He also reports? increase water intake.In the emergency department,?she was tachycardic, hypertensive, tachypneic and minimally responsive requiring emergent intubation for airway protection. Laboratory data was significant for serum sodium 114, potassium 2.4, chloride 54, serum bicarb 33, anion gap? 29, lactic acid 11.6. She was admitted for further management. Nephrology has been consulted to assist in her clinical care during her current hospital stay Review of Systems Review of Systems Yes Unobtainable due to mental status PMFSH Past Medical History Medical History Alcoholism Depression Withdrawal seizures Social History Social History (Updated 04/21/21 @ 11:11 by Citlalli Knight DO) Household Members: Significant Other Housing: Unknown / Unable to assess Do you presently have visiting nurse or other home services: No Alcohol intake: current Alcohol intake frequency: 0-2 drinks per day Alcohol type: hard liquor Patient Tobacco Use Status: Tobacco use Unknown Use of substances other than those prescribed or required for medical reasons: Unknown Substance Use Type: Marijuana Currently Displaying Signs/Symptoms of Drug Intoxication Withdrawal: No Advance Directives: No Advance Directives Information Provided: No Patient : No service: No Meds Allergies Allergy/AdvReac Type Severity Reaction Status Date / Time Iodinated Contrast Media AdvReac Hives Verified 06/18/24 21:33 [Contrast Dye] Active Medications: Current Medications Chlorhexidine Gluconate (Chlorhexidine Gluc Oral Rinse 15 Ml Mouthwash) 15 ml BUCCAL TID [facility] Last Admin: 06/19/24 08:10 Dose: 15 ml Enoxaparin Sodium (Enoxaparin Sodium 40 Mg/0.4 Ml Syringe) 40 mg SUBCUT Q24H [facility] Last Admin: 06/19/24 08:11 Dose: 40 mg Famotidine (Famotidine/Pf 20 Mg/2 Ml Vial) 20 mg IVPUSH DAILY [facility] Last Admin: 06/19/24 08:10 Dose: 20 mg Propofol (Diprivan) 1,000 mg in 100 mls @ 0 mls/hr IVCONT .Q0M [facility]; Protocol Last Titration: 06/19/24 09:22 Dose: 0 mcg/kg/min, 0 mls/hr Norepinephrine Bitartrate (Levophed) 8 mg in 250 mls @ 0 mls/hr IV .Q0M [facility]; Protocol Last Titration: 06/19/24 09:10 Dose: 0.09 mcg/kg/min, 9.74 mls/hr Thiamine HCl 100 mg/ Sodium (Chloride) 101 mls @ 202 mls/hr IV BID [facility] Last Infusion: 06/19/24 08:42 Dose: Infused Folic Acid 1 mg/ Sodium (Chloride) 50.2 mls @ 100.4 mls/hr IV DAILY [facility] Last Infusion: 06/19/24 09:10 Dose: Infused Midazolam HCl (Versed) 50 mg in 50 mls @ 2 mls/hr IVCONT .Q24H [facility] Last Infusion: 06/19/24 09:22 Dose: 0 mg/hr, 0 mls/hr Fentanyl (Sublimaze/Ns) 1,000 mcg in 100 mls @ 0 mls/hr IVCONT .Q0M [facility]; Protocol Last Titration: 06/19/24 09:22 Dose: 0 mcg/hr, 0 mls/hr Potassium Chloride (Potassium Chloride/H20) 40 meq in 100 mls @ 50 mls/hr IV ONCE ONE Stop: 06/19/24 10:59 Last Admin: 06/19/24 08:11 Dose: 50 mls/hr Pharmacy Consult (Consult Rx Etoh Phenob Im/Po) 1 each MISCELLANE ONCE PRN; Protocol PRN Reason: Consult order Phenobarbital (Phenobarbital 15 Mg Tablet) 45 mg PO BID [facility]; Protocol Stop: 06/21/24 09:01 Phenobarbital (Phenobarbital 30 Mg Tablet) 30 mg PO BID [facility]; Protocol Stop: 06/23/24 09:01 Phenobarbital (Phenobarbital 30 Mg Tablet) 30 mg PO DAILY [facility]; Protocol Stop: 06/25/24 09:01 Potassium Phos/Sodium Phos (Sodium,Potassium Phosphates Powd.Pack) 2 packet PO Q4H [facility] Stop: 06/19/24 16:01 Last Admin: 06/19/24 07:45 Dose: 2 packet Sodium Chloride (0.9 % Sodium Chloride Flush 3 Ml Syringe) 3 ml IVFLUSH QSHIFT [facility] Last Admin: 06/19/24 07:34 Dose: 3 ml Home Medications ?Medication ?Instructions ?Recorded ?Confirmed ?Last Taken ?Type hydroxyzine HCl 25 mg tablet 25 - 50 mg PO DAILY PRN anxiety 06/19/24 06/19/24 Unknown History hydroxyzine HCl 25 mg tablet 25 - 50 mg PO DAILY PRN anxiety 06/19/24 06/19/24 Unknown History magnesium oxide 400 mg (241.3 mg 400 mg PO BID 06/19/24 06/19/24 Unknown History magnesium) tablet omeprazole 20 mg capsule,delayed 20 mg PO BID 06/19/24 06/19/24 Unknown History release quetiapine 25 mg tablet 25 mg PO TID PRN anxiety 06/19/24 06/19/24 Unknown History quetiapine 50 mg tablet 50 - 100 mg PO BEDTIME 06/19/24 06/19/24 Unknown History sennosides 8.6 mg tablet (senna) 8.6 - 17.2 mg PO BEDTIME PRN 06/19/24 06/19/24 Unknown History constipation sucralfate 1 gram tablet 1 g PO QID 06/19/24 06/19/24 Unknown History Physical Exam Vital Signs: Last Vital Signs Temp 98.4 F 06/19/24 10:00 Pulse 100 06/19/24 10:00 Resp 14 06/19/24 10:00 BP 107/69 06/19/24 10:00 Pulse Ox 100 06/19/24 10:00 O2 Del Method Mechanical Ventilation 06/19/24 10:00 O2 Flow Rate 5 06/18/24 21:53 FiO2 24 06/19/24 10:00 Oxygen Flow Rate 8 08/18/24 21:28 BMI result Body Mass Index 18.6 Const General: no acute distress Neck Other: R IJ catheter + Resp Auscultation: diminished lung sounds Cardio Rate: regular rate GI Palpation (GI): Soft to palpation Neuro Other: Intubated and Ventilated Extrem Other: No edema Results Lab Results 06/19/24 05:08 06/19/24 05:08 Lab results: Chemistry 06/18/24 06/19/24 06/19/24 21:29 01:07 03:13 Sodium 114 L* D 115 L* 116 L* Potassium 2.4 L* 1.8 L* D 2.8 L* D Carbon Dioxide 33 H 32 H 35 H BUN 17 H 16 16 Creatinine 0.86 0.66 0.73 Calcium 9.2 8.3 L D 10.2 D Phosphorus 1.1 L 06/19/24 05:08 Sodium 116 L* Potassium 3.2 L Carbon Dioxide 34 H BUN 15 Creatinine 0.74 Calcium 9.6 Phosphorus 1.1 L Hematology 06/18/24 06/19/24 21:29 05:08 WBC 12.7 H 12.4 H Hgb 14.5 11.5 L D Plt Count 160 D 114 L D Urinalysis 06/19/24 01:00 Urine Color Yellow Urine Appearance Clear Urine pH 7.0 Ur Specific [place] 1.010 Urine Protein 30 (1+) H Urine Glucose (UA) Negative Urine Ketones 15 Urine Blood Large (3+) H Urine Nitrite Negative Ur Leukocyte Esterase Negative Urine RBC 6-10 H Urine WBC 0-5 Ur Squamous Epith Cells 0-2 Hyaline Casts 0-2 Urine Studies 06/19/24 00:59 Urine Osmolality 393 Assessment and Plan (1) Acute hyponatremia: Status: Acute (2) Acute hypokalemia: Status: Acute Plan Hyponatremia multi factorial Had seizure; Was given 3% saline Will benefit from further 3% saline today Urine studies reviewed; Serum potassium improving ? Extubation today;Needs to monitor ABG, blood chemistry Needs to avoid rapid correction of serum Na to prevent CPM Procedures Date of Service Date of Service: 06/19/24
--- NOTE | 2024-06-19 10:46 | PHA.MEDREC ---
Pharmacy Consult ? Medication Reconciliation Pharmacy has reviewed the medication reconciliation. Matches claim history, Timolol and Latanoprost are also in claim history but not included in med rec done by RN.
[2024-06-19 11:07] LABS: Glucose, Whole Blood 179 mg/dL (60-115)
[2024-06-19 12:49] LABS: Anion Gap 16 (12-20); Blood Urea Nitrogen 13 mg/dL (9-16); Calcium 9.2 mg/dL (8.4-10.2); Carbon Dioxide 31 mmol/L (22-29); Chloride 76 mmol/L (96-108); Estimated Glomerular Filt Rate > 60; Glucose Random 113 mg/dL (60-115); Potassium 3.5 mmol/L (3.3-5.1); Sodium 119 mmol/L (135-145)
--- NOTE | 2024-06-19 14:26 | MHC.CM.PN ---
Pt presently intubated and unable to participate in CM assessment: Per discussion at rounds: pt was independent prior to admission: no DME or services - lives w/significant other. No HCP on file. Plan of care includes sedation weaning for possible extubation later today. CM to follow for completion of CM assessment and d/c planning needs.
[2024-06-19] MEDS: propofoL 1,000 MG/100 ML VIAL 10.39 MG IVCONT (15:57)
[2024-06-19] MEDS: PHENobarbitaL 15 MG TABLET 45 MG PO (20:33)
[2024-06-19] MEDS: propofoL 1,000 MG/100 ML VIAL 13.85 MG IVCONT (22:43)
[2024-06-20] VITALS (28 sets, daily range): BP systolic 101–137; BP diastolic 59–98; PULSE 92–117; RESP 10–26; TEMP 34.4–38.4; O2SAT 92–100; BMI 18.5
[2024-06-20] MEDS: propofoL 1,000 MG/100 ML VIAL 13.85 MG IVCONT (03:22)
[2024-06-20] MEDS: Midazolam HCl/PF 2 MG/2 ML VIAL IVPUSH ×2 (05:06→07:27)
[2024-06-20 05:41] LABS: VBG Base Excess 15.4 mmol/L; VBG HCO3 35 mmol/L (22-26); VBG pCO2 29 mmHg; VBG pH 7.69 (7.32-7.43); VBG pO2 50 mmHg
[2024-06-20 05:42] LABS: Venous Blood Gas Refer to POC result
[2024-06-20 05:58] LABS: Hematocrit 31.5 % (37.0-47.0); PLT CLUMP 1; SCAN SMEAR FLAG 1
[2024-06-20 06:00] LABS: Basophils Percent Auto 0.2 % (0-2); Eosinophils Percent Auto 0.2 % (0-4); Hemoglobin 11.6 g/dl (12.0-16.0); Imm Gran Abs Auto 0.08 X10*3/uL (0.00-0.03); Imm Gran Pct Auto 0.8 % (0.0-0.4); Lymphocytes Absolute Auto 1.9 X10*3/uL (1.2-4.9); Lymphocytes Percent Auto 18.7 % (20-40); Mean Corpuscular HGB Conc 36.8 g/dl (31.0-35.0); Mean Corpuscular Hemoglobin 30.9 pg (27.0-33.0); Mean Corpuscular Volume 83.8 fL (80.0-98.0); Monocytes Absolute Auto 0.4 X10*3/uL (0.1-1.2); Monocytes Percent Auto 3.7 % (2-11); Neutrophils Absolute Auto 7.6 x10*3/uL (2.0-8.3); Neutrophils Percent Auto 76.4 % (45-73); Red Blood Count 3.76 X10*6/uL (4.20-5.50); Red Cell Distribution Width 14.8 % (11.0-16.0)
[2024-06-20 06:04] LABS: MANUAL DIFF FLAG NO; Platelet Count 92 X10*3/uL (160-400); White Blood Count 9.9 X10*3/uL (4.8-10.8)
[2024-06-20 06:20] LABS: Albumin Level 2.9 g/dL (3.5-5.0); Anion Gap 15 (12-20); Blood Urea Nitrogen 14 mg/dL (9-16); Calcium 8.4 mg/dL (8.4-10.2); Carbon Dioxide 29 mmol/L (22-29); Chloride 79 mmol/L (96-108); Creatinine Clr Calc Pharmacy 102.6; Estimated Glomerular Filt Rate > 60; Glucose Random 83 mg/dL (60-115); Magnesium 1.8 mg/dL (1.6-2.6); Phosphorus 1.7 mg/dL (2.7-4.5); Potassium 2.2 mmol/L (3.3-5.1); Sodium 121 mmol/L (135-145)
[2024-06-20] MEDS: Potassium Chloride Packet 20 MEQ PACKET 40 MEQ PO (06:32)
[2024-06-20] MEDS: Sodium,Potassium Phosphates POWD.PACK 2 PACKET PO (06:51)
[2024-06-20] MEDS: Albumin Human 25 % 100 ML IV (06:52)
[2024-06-20] MEDS: Potassium Chloride/H20 40 MEQ/100 ML PIGGYBACK 100 MEQ IV (06:52)
[2024-06-20] MEDS: 0.9 % Sodium Chloride Flush 3 ML SYRINGE IVFLUSH ×3 (06:52→15:31)
[2024-06-20] MEDS: Thiamine HCL 100 MG in 0.9 % Sodium Chloride 100 ML 202 MG IV ×2 (07:53→20:19)
[2024-06-20] MEDS: PHENobarbitaL 15 MG TABLET 45 MG PO ×2 (07:55→20:14)
[2024-06-20] MEDS: Chlorhexidine Gluc Oral Rinse 15 ML MOUTHWASH BUCCAL (07:55)
[2024-06-20] MEDS: Folic Acid 1 MG in 0.9 % Sodium Chloride 50 ML 100.4 MG IV (07:55)
[2024-06-20] MEDS: Famotidine/PF 20 MG/2 ML VIAL IVPUSH (07:55)
[2024-06-20] MEDS: propofoL 1,000 MG/100 ML VIAL 17.31 MG IVCONT (08:19)
--- NOTE | 2024-06-20 09:47 | P.PNCC_ITS ---
Subjective Subjective Date of Service: 06/20/24 Interval History: 33-year-old lady with underlying history of alcohol abuse with delirium tremens with seizures admitted on 06/18/2024 seizures and hyponatremia requiring intubation for airway protection. Patient received initial bolus of 3% saline with slower rising her sodium 5 mEq in the 1st 24 hours. Extubated uneventfully on 06/20/2024. No events overnight. Critical Care Time (minutes): 60 Physical Exam 2 Vital Signs: Vital Signs: Last Vital Signs Temp 101.1 F H 06/20/24 09:00 Pulse 115 H 06/20/24 09:00 Resp 19 06/20/24 09:00 BP 134/97 H 06/20/24 09:00 Pulse Ox 100 06/20/24 09:00 O2 Del Method Nasal Cannula 06/20/24 09:00 O2 Flow Rate 2 06/20/24 09:00 FiO2 21 06/20/24 08:53 Oxygen Flow Rate 8 06/18/24 21:28 BMI result Body Mass Index 18.5 Const: General: no acute distress, alert and awake Eyes: Sclerae: sclerae normal EOM: EOMs intact bilaterally Neck: Neck: Yes no lymphadenopathy, Yes trachea midline and Yes supple Resp: Effort & Inspection: normal respiratory effort and no respiratory distress Auscultation: clear to auscultation bilaterally Cardio: Rate: tachycardic Rhythm: regular rhythm Heart sounds: no gallops, no murmurs and no rubs GI: Palpation (GI): Soft to palpation and Other GI palpation findings present ( Nontender) Auscultation: normal bowel sounds Extrem: General: Yes no pedal edema, No clubbing and No cyanosis Objective Data Labs 06/20/24 05:12 06/20/24 05:12 Labs: Laboratory Results - last 24 hr 06/18/24 06/19/24 06/20/24 21:19 12:01 05:12 WBC 9.9 RBC 3.76 L Hgb 11.6 L Hct 31.5 L MCV 83.8 MCH 30.9 MCHC 36.8 H RDW 14.8 Plt Count 92 L MPV 11.0 Immature Gran % (Auto) 0.8 H Neut % (Auto) 76.4 H Lymph % (Auto) 18.7 L [place] % (Auto) 3.7 Eos % (Auto) 0.2 Baso % (Auto) 0.2 Lymph # (Auto) 1.9 [place] # (Auto) 0.4 Eos # (Auto) 0.0 Baso # (Auto) 0.0 Abs Immat Gran (auto) 0.08 H Absolute Neuts (auto) 7.6 Absolute Nucleated RBC 0.000 Nucleated RBC % (auto) 0.0 VBG pH VBG pCO2 VBG pO2 VBG HCO3 VBG O2 Saturation VBG Base Excess Sodium 119 L* 121 L Potassium 3.5 2.2 L* D Chloride 76 L 79 L Carbon Dioxide 31 H 29 Anion Gap 16 15 BUN 13 14 Creatinine 0.76 0.64 Estim Creat Clear Calc 87.0 102.6 Estimated GFR > 60 > 60 POC Glucose 179 H Random Glucose 113 83 Calcium 9.2 8.4 D Phosphorus 1.7 L Magnesium 1.8 Albumin 2.9 L 06/20/24 05:28 WBC RBC Hgb Hct MCV MCH MCHC RDW Plt Count MPV Immature Gran % (Auto) Neut % (Auto) Lymph % (Auto) [place] % (Auto) Eos % (Auto) Baso % (Auto) Lymph # (Auto) [place] # (Auto) Eos # (Auto) Baso # (Auto) Abs Immat Gran (auto) Absolute Neuts (auto) Absolute Nucleated RBC Nucleated RBC % (auto) VBG pH 7.69 H* VBG pCO2 29 VBG pO2 50 VBG HCO3 35 H VBG O2 Saturation 88.0 VBG Base Excess 15.4 Sodium Potassium Chloride Carbon Dioxide Anion Gap BUN Creatinine Estim Creat Clear Calc Estimated GFR POC Glucose Random Glucose Calcium Phosphorus Magnesium Albumin Microbiology Microbiology Results: Microbiology 06/19/24 01:07 Blood - Venous Blood Culture - Preliminary No growth after 24 hours. 06/19/24 01:07 Blood - Venous Blood Culture - Preliminary No growth after 24 hours. Progress Note: A&P Assessment and plan (1) Acute hyponatremia: Status: Acute (2) Acute hypokalemia: Status: Acute (3) Alcohol withdrawal: Status: Acute Plan Assessment: 33-year-old lady admitted with seizures, alcohol withdrawal acute hyponatremia requiring intubation protection Plan: Neuro: Seizures, either secondary to hyponatremia alcohol withdrawal. No recurrence. Delirium tremens, improved, continues on phenobarbital protocol. CT head with no acute findings. Cardiac: No acute issues. Pulmonary: Intubated for airway protection, extubated uneventfully on 06/20/2024. Renal: Hyponatremia status post initial 3% saline bolus, improving slowly. Nephrology service care appreciated. Continue to monitor electrolytes. Endo: No acute issues. GI: No acute issues. ID: No acute issues Heme/Onc: No acute issues. Psych: No acute issues. Miscellaneous: No acute issues. Prophylaxis: Lovenox Diet: Pending swallow evaluation Critical care time spent: 60 minutes Quality Stroke Does the patient have a stroke diagnosis?: No VTE Prior VTE?: No VTE Risk Level:: Medical - moderate - high VTE Device Contraindication: N/A - Device Ordered VTE Drug Contraindication: N/A - Med Ordered
--- NOTE | 2024-06-20 12:28 | P.CDIM_ITS ---
PROVIDER RESPONSE TEXT: To clarify, the appropriate diagnosis supported by the clinical indicators: Underweight QUERY TEXT: PHYSICIAN'S DOCUMENTATION REQUEST Date of Query: 06/20/2024 08:28 AM EDT Patient Name: XUAN CALZADA Admit Date: 06/19/2024 Dear Ciro Crowe MD, A review of the medical record indicates additional documentation may be needed. Please review below and update the documentation accordingly. Clinical Indicators: Clinical nutrition notes: patient is mildly underweight with BMI 18.6 Pt is borderline underweight for height, 89% LELAND range indicates borderline mildly underweight. Currently NPO If possible, please provide an associated diagnosis related to the abnormal BMI, such as: Underweight Weight loss Anorexia Other (explain) Clinically unable to determine (explain) Thank you, Augusta Marcano, CCS, CDIS Use of terms such as suspected, likely, concern for, or probable (associated with a specific diagnosi s that is being evaluated, monitored, or treated as if it exists) are acceptable and can be coded in the inpatient se tting, when documented at the time of discharge. Please use your independent medical judgment in providing your response. THIS QUERY IS PART OF THE PERMANENT MEDICAL RECORD
--- NOTE | 2024-06-20 12:39 | PM.PNNEP ---
Subjective Subjective Date of Service: 06/21/24 Interval history: Events noted Physical Exam Vital Signs: Vital Signs: Last Vital Signs Temp 100.0 F 06/20/24 12:00 Pulse 105 H 06/20/24 12:00 Resp 25 H 06/20/24 12:00 BP 134/93 H 06/20/24 12:00 Pulse Ox 96 06/20/24 12:00 O2 Del Method Nasal Cannula 06/20/24 12:00 O2 Flow Rate 2 06/20/24 12:00 FiO2 21 06/20/24 08:53 Oxygen Flow Rate 8 06/18/24 21:28 BMI result Body Mass Index 18.5 Const: General: no acute distress Neck: Other: R IJ catheter + Resp: Auscultation: diminished lung sounds Cardio: Rate: regular rate GI: Palpation (GI): Soft to palpation Neuro: Other: Intubated and Ventilated Extrem: Other: No edema Objective Data Labs 06/22/24 06:17 06/22/24 06:17 Labs: Laboratory Results - last 24 hr 06/19/24 06/20/24 06/20/24 12:01 05:12 05:28 WBC 9.9 RBC 3.76 L Hgb 11.6 L Hct 31.5 L MCV 83.8 MCH 30.9 MCHC 36.8 H RDW 14.8 Plt Count 92 L MPV 11.0 Immature Gran % (Auto) 0.8 H Neut % (Auto) 76.4 H Lymph % (Auto) 18.7 L [place] % (Auto) 3.7 Eos % (Auto) 0.2 Baso % (Auto) 0.2 Lymph # (Auto) 1.9 [place] # (Auto) 0.4 Eos # (Auto) 0.0 Baso # (Auto) 0.0 Abs Immat Gran (auto) 0.08 H Absolute Neuts (auto) 7.6 Absolute Nucleated RBC 0.000 Nucleated RBC % (auto) 0.0 VBG pH 7.69 H* VBG pCO2 29 VBG pO2 50 VBG HCO3 35 H VBG O2 Saturation 88.0 VBG Base Excess 15.4 Sodium 119 L* 121 L Potassium 3.5 2.2 L* D Chloride 76 L 79 L Carbon Dioxide 31 H 29 Anion Gap 16 15 BUN 13 14 Creatinine 0.76 0.64 Estim Creat Clear Calc 87.0 102.6 Estimated GFR > 60 > 60 Random Glucose 113 83 Calcium 9.2 8.4 D Phosphorus 1.7 L Magnesium 1.8 Albumin 2.9 L Microbiology Microbiology Results: Microbiology 06/19/24 01:07 Blood - Venous Blood Culture - Preliminary No growth after 24 hours. 06/19/24 01:07 Blood - Venous Blood Culture - Preliminary No growth after 24 hours. Procedures Date of Service Date of Service: 06/22/24 Assessment & Plan Assessment and plan (1) Acute hyponatremia: Status: Acute (2) Acute hypokalemia: Status: Acute Plan Hyponatremia multi factorial Had seizure; Was given 3% saline Rate of correction acceptable Urine studies reviewed; Serum potassium improving Needs to avoid rapid correction of serum Na to prevent CPM Recheck Na q 4hrlys Time Spent With Patient Time: Total time managing care of this patient today ____ minutes. Progress Note: Quality Stroke Does the patient have a stroke diagnosis?: No
[2024-06-20 12:52] LABS: Anion Gap 13 (12-20); Blood Urea Nitrogen 11 mg/dL (9-16); Calcium 7.4 mg/dL (8.4-10.2); Carbon Dioxide 24 mmol/L (22-29); Chloride 92 mmol/L (96-108); Creatinine Clr Calc Pharmacy 115.2; Estimated Glomerular Filt Rate > 60; Glucose Random 75 mg/dL (60-115); Potassium 3.3 mmol/L (3.3-5.1); Sodium 126 mmol/L (135-145)
[2024-06-21] VITALS (15 sets, daily range): BP systolic 113–135; BP diastolic 67–97; PULSE 97–113; RESP 16–25; TEMP 36.2–37.2; O2SAT 92–100; BMI 17.6
[2024-06-21 01:06] LABS: Albumin Level 3.8 g/dL (3.5-5.0); Anion Gap 18 (12-20); Blood Urea Nitrogen 8 mg/dL (9-16); Calcium 8.9 mg/dL (8.4-10.2); Carbon Dioxide 23 mmol/L (22-29); Chloride 86 mmol/L (96-108); Creatinine Clr Calc Pharmacy 121.6; Estimated Glomerular Filt Rate > 60; Glucose Random 79 mg/dL (60-115); Magnesium 1.5 mg/dL (1.6-2.6); Phosphorus 2.3 mg/dL (2.7-4.5); Sodium 124 mmol/L (135-145)
[2024-06-21] MEDS: Potassium Phosphate/NS 15 MMOL/250 ML PLAST..BAG 62.5 MMOL IV (01:34)
[2024-06-21] MEDS: Magnesium Sulfate/H2O 2 GM/50 ML PIGGYBACK IV (01:34)
[2024-06-21] MEDS: Potassium Chloride Packet 20 MEQ PACKET 40 MEQ PO (01:35)
[2024-06-21 06:11] LABS: MANUAL DIFF FLAG NO
[2024-06-21 06:29] LABS: Albumin Level 3.8 g/dL (3.5-5.0); Anion Gap 16 (12-20); Blood Urea Nitrogen 6 mg/dL (9-16); Calcium 8.9 mg/dL (8.4-10.2); Carbon Dioxide 24 mmol/L (22-29); Chloride 86 mmol/L (96-108); Creatinine Clr Calc Pharmacy 113.6; Estimated Glomerular Filt Rate > 60; Glucose Random 80 mg/dL (60-115); Magnesium 2.1 mg/dL (1.6-2.6); Phosphorus 3.3 mg/dL (2.7-4.5); Potassium 3.4 mmol/L (3.3-5.1); Sodium 123 mmol/L (135-145)
[2024-06-21 06:30] LABS: Basophils Absolute Auto 0.1 X10*3/uL (0.0-0.2); Basophils Percent Auto 0.5 % (0-2); Eosinophils Absolute Auto 0.1 X10*3/uL (0.0-0.4); Eosinophils Percent Auto 0.9 % (0-4); Hematocrit 33.5 % (37.0-47.0); Hemoglobin 12.3 g/dl (12.0-16.0); Imm Gran Abs Auto 0.17 X10*3/uL (0.00-0.03); Imm Gran Pct Auto 1.6 % (0.0-0.4); Lymphocytes Absolute Auto 1.9 X10*3/uL (1.2-4.9); Lymphocytes Percent Auto 18.5 % (20-40); Mean Corpuscular HGB Conc 36.7 g/dl (31.0-35.0); Mean Corpuscular Hemoglobin 31.1 pg (27.0-33.0); Mean Corpuscular Volume 84.8 fL (80.0-98.0); Mean Platelet Volume 10.6 fL (9.4-12.3); Monocytes Absolute Auto 0.7 X10*3/uL (0.1-1.2); Monocytes Percent Auto 7.1 % (2-11); Neutrophils Absolute Auto 7.5 x10*3/uL (2.0-8.3); Neutrophils Percent Auto 71.4 % (45-73); Platelet Count 115 X10*3/uL (160-400); Red Blood Count 3.95 X10*6/uL (4.20-5.50); Red Cell Distribution Width 14.3 % (11.0-16.0); White Blood Count 10.4 X10*3/uL (4.8-10.8)
[2024-06-21] MEDS: 0.9 % Sodium Chloride Flush 3 ML SYRINGE IVFLUSH ×2 (08:22)
[2024-06-21] MEDS: Folic Acid 1 MG in 0.9 % Sodium Chloride 50 ML 100.4 MG IV (08:25)
[2024-06-21] MEDS: Thiamine HCL 100 MG TABLET PO (09:23)
--- NOTE | 2024-06-21 09:48 | P.PNCC_ITS ---
Subjective Subjective Date of Service: 06/21/24 Interval History: 33-year-old lady with underlying history of alcohol abuse with delirium tremens with seizures admitted on 06/18/2024 seizures and hyponatremia requiring intubation for airway protection. Patient received initial bolus of 3% saline with slower rising her sodium 5 mEq in the 1st 24 hours. Extubated uneventfully on 06/20/2024. No events overnight. Critical Care Time (minutes): 0 Physical Exam 2 Vital Signs: Vital Signs: Last Vital Signs Temp 98.8 F 06/21/24 08:00 Pulse 113 H 06/21/24 08:00 Resp 18 06/21/24 08:00 BP 121/82 06/21/24 08:00 Pulse Ox 92 06/21/24 08:00 O2 Del Method Room Air 06/21/24 08:00 O2 Flow Rate 2 06/20/24 16:53 FiO2 21 06/20/24 08:53 Oxygen Flow Rate 8 06/18/24 21:28 BMI result Body Mass Index 17.6 Const: General: no acute distress, alert and awake Eyes: Sclerae: sclerae normal EOM: EOMs intact bilaterally Neck: Neck: Yes no lymphadenopathy, Yes trachea midline and Yes supple Resp: Effort & Inspection: normal respiratory effort and no respiratory distress Auscultation: clear to auscultation bilaterally Cardio: Rate: tachycardic Rhythm: regular rhythm Heart sounds: no gallops, no murmurs and no rubs GI: Palpation (GI): Soft to palpation and Other GI palpation findings present ( Nontender) Auscultation: normal bowel sounds Extrem: General: Yes no pedal edema, No clubbing and No cyanosis Objective Data Labs 06/21/24 06:03 06/21/24 06:03 Labs: Laboratory Results - last 24 hr 06/20/24 06/21/24 06/21/24 12:26 00:47 06:03 WBC 10.4 RBC 3.95 L Hgb 12.3 Hct 33.5 L MCV 84.8 MCH 31.1 MCHC 36.7 H RDW 14.3 Plt Count 115 L MPV 10.6 Immature Gran % (Auto) 1.6 H Neut % (Auto) 71.4 Lymph % (Auto) 18.5 L G[place] % (Auto) 7.1 Eos % (Auto) 0.9 Baso % (Auto) 0.5 Lymph # (Auto) 1.9 [place] # (Auto) 0.7 Eos # (Auto) 0.1 Baso # (Auto) 0.1 Abs Immat Gran (auto) 0.17 H Absolute Neuts (auto) 7.5 Absolute Nucleated RBC 0.000 Nucleated RBC % (auto) 0.0 Sodium 126 L 124 L 123 L Potassium 3.3 D 3.0 L 3.4 Chloride 92 L 86 L 86 L Carbon Dioxide 24 23 24 Anion Gap 13 18 16 BUN 11 8 L 6 L Creatinine 0.57 0.54 0.55 Estim Creat Clear Calc 115.2 121.6 113.6 Estimated GFR > 60 > 60 > 60 Random Glucose 75 79 80 Calcium 7.4 L D 8.9 D 8.9 Phosphorus 2.3 L 3.3 Magnesium 1.5 L 2.1 Albumin 3.8 3.8 Microbiology Microbiology Results: Microbiology 06/19/24 01:07 Blood - Venous Blood Culture - Preliminary No growth after 48 hours. 06/19/24 01:07 Blood - Venous Blood Culture - Preliminary No growth after 48 hours. Progress Note: A&P Assessment and plan (1) Acute hypokalemia: Status: Acute (2) Acute hyponatremia: Status: Acute (3) Alcohol withdrawal: Status: Acute Plan Assessment: 33-year-old lady admitted with seizures, alcohol withdrawal acute hyponatremia requiring intubation protection Plan: Neuro: Seizures, either secondary to hyponatremia alcohol withdrawal. No recurrence. Delirium tremens, improved. CT head with no acute findings. Cardiac: No acute issues. Pulmonary: Intubated for airway protection, extubated uneventfully on 06/20/2024. Renal: Hyponatremia status post initial 3% saline bolus, improving. To be started on urea by Nephrology. Nephrology service care appreciated. Continue to monitor electrolytes. Endo: No acute issues. GI: No acute issues. ID: No acute issues Heme/Onc: No acute issues. Psych: No acute issues. Miscellaneous: No acute issues. Prophylaxis: Lovenox Diet: Regular Quality Stroke Does the patient have a stroke diagnosis?: No VTE Prior VTE?: No VTE Risk Level:: Medical - moderate - high VTE Device Contraindication: N/A - Device Ordered VTE Drug Contraindication: N/A - Med Ordered
--- NOTE | 2024-06-21 09:54 | MHC.CLN ---
F/U PT IS BORDERLINE UNDER WT FOR HT PT IS 89% [place] RANGE INDICATES BORDERLINE MILDLY UNDER WT FOR HT; BMI 18.6 PT DOES NOT SHOW S/S MALNUTRITION AT THIS TIME PT EXTUBATED AND TO TRANSFER TO MEDICAL FLOOR DIET ADVANCED TO REGULAR 2000ML FLUID RESTRICTION WILL ADD MAGIC CUP BID [id number], 18G PROTEIN MONITOR PO INTAKE AND ENCOURAGE SUPPLEMENT
[2024-06-21] MEDS: Sodium Chloride Tab 1 GM TABLET PO (15:15)
[2024-06-21] MEDS: Urea 15 GM POWDER PO (15:15)
--- NOTE | 2024-06-21 16:13 | MHC.CM.PN ---
EMR REVIEWED. PT HAS BEEN DOWNGRADED TO MEDICAL FLOOR FROM ICU. CM WILL CONTINUE TO FOLLOW FOR ANY CHANGE TO DC PLAN/NEEDS.
--- NOTE | 2024-06-21 17:21 | PM.EVENT ---
Event Note Date of Service: 06/21/24 Event Note: pt seen/examined. discussed with ICU MD. 33-year-old lady with underlying history of alcohol abuse with delirium tremens with seizures admitted on 06/18/2024 with seizures and hyponatremia requiring intubation for airway protection. Patient received initial bolus of 3% saline with slower rising her sodium 5 mEq in the 1st 24 hours. Extubated uneventfully on 06/20/2024 and is being pretty confused with metabolic encephalopathy, sodium level rising slowly. On urea and salt tab. Fluid restriction , get nephrology consult Time Spent With Patient Time: Total time managing care of this patient today ____ minutes.
[2024-06-21] MEDS: OLANZapine 10 MG VIAL 5 MG IM (23:57)
[2024-06-22 04:00] VITALS: BP 113/71; PULSE 95; RESP 18; TEMP 36.4; O2SAT 97
[2024-06-22 06:41] LABS: Hemoglobin 12.6 g/dl (12.0-16.0); Mean Corpuscular Hemoglobin 30.6 pg (27.0-33.0); Platelet Count 170 X10*3/uL (160-400); Red Blood Count 4.12 X10*6/uL (4.20-5.50); Red Cell Distribution Width 14.6 % (11.0-16.0)
[2024-06-22 06:57] LABS: Albumin Level 3.7 g/dL (3.5-5.0); Anion Gap 15 (12-20); Blood Urea Nitrogen 11 mg/dL (9-16); Calcium 9.4 mg/dL (8.4-10.2); Carbon Dioxide 25 mmol/L (22-29); Chloride 89 mmol/L (96-108); Creatinine Clr Calc Pharmacy 113.6; Estimated Glomerular Filt Rate > 60; Glucose Random 92 mg/dL (60-115); Magnesium 1.5 mg/dL (1.6-2.6); Phosphorus 3.3 mg/dL (2.7-4.5); Potassium 2.9 mmol/L (3.3-5.1); Sodium 126 mmol/L (135-145)
[2024-06-22 07:32] LABS: Atypical Lymph Absolute Manual 0.1 x10*3/uL; Atypical Lymphs Percent Manual 1 % (0-6); Band Neutrophils Percent 4 % (3-5); Eosinophils Absolute Manual 0.5 X10*3/uL (0.0-0.4); Eosinophils Percent Manual 5 % (0-4); Lymphocytes Absolute Manual 2.7 X10*3/uL (1.2-4.9); Lymphocytes Percent Manual 30 % (20-40); Metamyelocytes Absolute 0.1 X10*3/uL; Metamyelocytes Percent 1 %; Monocytes Absolute Manual 0.8 X10*3/uL (0.1-1.2); Monocytes Percent Manual 9 % (2-11); Neutrophils Absolute Manual 4.9 X10*3/uL (2.0-8.3); Neutrophils Percent Manual 50 % (45-73)
[2024-06-22 07:33] LABS: Platelet Estimate NORMAL (NORMAL); Platelet Morphology Comment NORMAL; RBC Morphology NORMAL
[2024-06-22 08:00] VITALS: BP 116/75; PULSE 98; RESP 16; TEMP 36.8; O2SAT 100
[2024-06-22] MEDS: Magnesium Sulfate/H2O 2 GM/50 ML PIGGYBACK IV (08:21)
[2024-06-22] MEDS: Sodium Chloride Tab 1 GM TABLET PO ×3 (08:21→20:39)
[2024-06-22] MEDS: 0.9 % Sodium Chloride Flush 3 ML SYRINGE IVFLUSH ×3 (08:21→20:40)
[2024-06-22] MEDS: Folic Acid 1 MG TABLET PO (08:21)
[2024-06-22] MEDS: Thiamine HCL 100 MG TABLET PO (08:21)
[2024-06-22] MEDS: Urea 15 GM POWDER PO ×2 (10:34→20:39)
[2024-06-22] MEDS: Potassium Chloride Packet 20 MEQ PACKET 40 MEQ PO ×2 (10:34→20:39)
--- NOTE | 2024-06-22 11:54 | ECG_ITS ---
Test Reason : tachy Blood Pressure : / mmHG Vent. Rate : 128 BPM Atrial Rate : 128 BPM P-R Int : 120 ms QRS Dur : 076 ms QT Int : 282 ms P-R-T Axes : 070 084 060 degrees QTc Int : 411 ms Sinus tachycardia Otherwise normal ECG When compared with ECG of 18-JUN-2024 21:33, No significant change was found [facility] Electron[facility] Signed By:MASOOD MAURER
[2024-06-22 12:00] VITALS: BP 124/89; PULSE 118; RESP 20; TEMP 36.9; O2SAT 99
--- NOTE | 2024-06-22 13:08 | PM.PNNEP ---
Subjective Subjective Date of Service: 06/22/24 Interval history: 33-year-old lady with underlying history of alcohol abuse with delirium tremens with seizures admitted on 06/18/2024 seizures and hyponatremia requiring intubation for airway protection. Patient received initial bolus of 3% saline with slower rising her sodium 5 mEq in the 1st 24 hours. Extubated uneventfully on 06/20/2024. No events overnight. Physical Exam Vital Signs: Vital Signs: Last Vital Signs Temp 98.5 F 06/22/24 12:00 Pulse 118 H 06/22/24 12:00 Resp 20 06/22/24 12:00 BP 124/89 06/22/24 12:00 Pulse Ox 99 06/22/24 12:00 O2 Del Method Room Air 06/22/24 12:00 O2 Flow Rate 2 06/20/24 16:53 FiO2 21 06/20/24 08:53 Oxygen Flow Rate 8 06/18/24 21:28 BMI result Body Mass Index 17.6 Const: General: no acute distress Neck: Other: R IJ catheter + Resp: Auscultation: diminished lung sounds Cardio: Rate: regular rate GI: Palpation (GI): Soft to palpation Neuro: Other: Intubated and Ventilated Extrem: Other: No edema Objective Data Labs 06/22/24 06:17 06/22/24 06:17 Labs: Laboratory Results - last 24 hr 06/22/24 06:17 WBC 9.0 RBC 4.12 L Hgb 12.6 Hct 35.0 L MCV 85.0 MCH 30.6 MCHC 36.0 H RDW 14.6 Plt Count 170 D MPV 10.0 Immature Gran % (Auto) Cancelled Neut % (Auto) Cancelled Lymph % (Auto) Cancelled Nicholas % (Auto) Cancelled Eos % (Auto) Cancelled Baso % (Auto) Cancelled Lymph # (Auto) Cancelled Nicholas # (Auto) Cancelled Eos # (Auto) Cancelled Baso # (Auto) Cancelled Abs Immat Gran (auto) Cancelled Absolute Neuts (auto) Cancelled Absolute Nucleated RBC 0.000 Nucleated RBC % (auto) 0.0 Neutrophils % (Manual) 50 Band Neutrophils % 4 Lymphocytes % (Manual) 30 Atypical Lymphs % (Man) 1 Monocytes % (Manual) 9 Eosinophils % (Manual) 5 H Metamyelocytes % 1 Abs Neuts (Manual) 4.9 Lymphocytes # (Manual) 2.7 Atyp Lymphs # (Manual) 0.1 Monocytes # (Manual) 0.8 Eosinophils # (Manual) 0.5 H Metamyelocytes # 0.1 Platelet Estimate NORMAL Plt Morphology Comment NORMAL RBC Morphology NORMAL Sodium 126 L Potassium 2.9 L* Chloride 89 L Carbon Dioxide 25 Anion Gap 15 BUN 11 Creatinine 0.55 Estim Creat Clear Calc 113.6 Estimated GFR > 60 Random Glucose 92 Calcium 9.4 Phosphorus 3.3 Magnesium 1.5 L Albumin 3.7 Microbiology Microbiology Results: Microbiology 06/19/24 01:07 Blood - Venous Blood Culture - Preliminary No growth after 48 hours. 06/19/24 01:07 Blood - Venous Blood Culture - Preliminary No growth after 48 hours. Procedures Date of Service Date of Service: 06/22/24 Assessment & Plan Assessment and plan (1) Acute hyponatremia: Status: Acute (2) Acute hypokalemia: Status: Acute Plan Hyponatremia multi factorial Had seizure; Was given 3% saline Rate of correction acceptable No need for 3% saline anymore. Urine studies reviewed; Serum potassium improving Needs to avoid rapid correction of serum Na to prevent CPM Add urea powder 15 g p.o. b.i.d. Recheck Na q 8hrlys Time Spent With Patient Time: Total time managing care of this patient today ____ minutes. Progress Note: Quality Stroke Does the patient have a stroke diagnosis?: No
--- NOTE | 2024-06-22 13:39 | P.PNIM_ITS ---
Subjective Subjective Date of Service: 06/22/24 Interval History: pt seen and examined, she's doing better today, less confused, oriented to self place and time sodium level is up to 126, potassium is 2.9 Physical Exam 2 Vital Signs: Vital Signs: Last Vital Signs Temp 98.5 F 06/22/24 12:00 Pulse 118 H 06/22/24 12:00 Resp 20 06/22/24 12:00 BP 124/89 06/22/24 12:00 Pulse Ox 99 06/22/24 12:00 O2 Del Method Room Air 06/22/24 12:00 O2 Flow Rate 2 06/20/24 16:53 FiO2 21 06/20/24 08:53 Oxygen Flow Rate 8 06/18/24 21:28 BMI result Body Mass Index 17.6 Objective Data Active Medications Acetaminophen (Acetaminophen 325 Mg Tablet) 650 mg PO Q6H PRN PRN Reason: Pain, Mild (Pain Scale 1-3) Folic Acid (Folic Acid 1 Mg Tablet) 1 mg PO DAILY [facility] Last Admin: 06/22/24 08:21 Dose: 1 mg Documented By: CAMILLE Hydroxyzine HCl (Hydroxyzine Hcl 50 Mg Tablet) 50 mg PO Q6H PRN PRN Reason: anxiety/restlessness Pharmacy Consult (Consult Rx Etoh Phenob Im/Po) 1 each MISCELLANE ONCE PRN; Protocol PRN Reason: Consult order Potassium Chloride (Potassium Chloride Packet 20 Meq Packet) 40 meq PO BID [facility] Stop: 06/22/24 21:01 Last Admin: 06/22/24 10:34 Dose: 40 meq Documented By: CAMILLE Sodium Chloride (0.9 % Sodium Chloride Flush 3 Ml Syringe) 3 ml IVFLUSH QSHIFT [facility] Last Admin: 06/22/24 08:21 Dose: 3 ml Documented By: CAMILLE Sodium Chloride (Sodium Chloride Tab 1 Gm Tablet) 1 gm PO TID [facility] Last Admin: 06/22/24 08:21 Dose: 1 gm Documented By: CAMILLE Thiamine HCl (Thiamine Hcl 100 Mg Tablet) 100 mg PO DAILY [facility] Last Admin: 06/22/24 08:21 Dose: 100 mg Documented By: CAMILLE Urea (Urea 15 Gm Powder) 15 gm PO BID [facility] Last Admin: 06/22/24 10:34 Dose: 15 gm Documented By: CAMILLE Labs 06/22/24 06:17 06/22/24 06:17 Labs: Laboratory Results - last 24 hr 06/22/24 06:17 MCV 85.0 MCH 30.6 MCHC 36.0 H RDW 14.6 Plt Count 170 D MPV 10.0 Immature Gran % (Auto) Cancelled Neut % (Auto) Cancelled Lymph % (Auto) Cancelled Placer % (Auto) Cancelled Eos % (Auto) Cancelled Baso % (Auto) Cancelled Lymph # (Auto) Cancelled Placer # (Auto) Cancelled Eos # (Auto) Cancelled Baso # (Auto) Cancelled Abs Immat Gran (auto) Cancelled Absolute Neuts (auto) Cancelled Absolute Nucleated RBC 0.000 Nucleated RBC % (auto) 0.0 Neutrophils % (Manual) 50 Band Neutrophils % 4 Lymphocytes % (Manual) 30 Atypical Lymphs % (Man) 1 Monocytes % (Manual) 9 Eosinophils % (Manual) 5 H Metamyelocytes % 1 Abs Neuts (Manual) 4.9 Lymphocytes # (Manual) 2.7 Atyp Lymphs # (Manual) 0.1 Monocytes # (Manual) 0.8 Eosinophils # (Manual) 0.5 H Metamyelocytes # 0.1 Platelet Estimate NORMAL Plt Morphology Comment NORMAL RBC Morphology NORMAL Anion Gap 15 Estim Creat Clear Calc 113.6 Estimated GFR > 60 Random Glucose 92 Calcium 9.4 Phosphorus 3.3 Magnesium 1.5 L Albumin 3.7 Assessment and Plan (1) Acute respiratory failure: Status: Acute (2) Acute hypokalemia: Status: Acute (3) Acute hyponatremia: Status: Acute Plan 33-year-old lady with underlying history of alcohol abuse with delirium tremens with seizures admitted on 06/18/2024 with seizures and hyponatremia requiring intubation for airway protection. Patient received initial bolus of 3% saline with slower rising her sodium 5 mEq in the 1st 24 hours. Extubated on 06/20/2024 and has being confused with metabolic encephalopathy, sodium level rising slowly. On urea and salt tab. Fluid restriction Hyponatremia relatd to alcohol use--sodium is rising as expectd -avoid rapid correction -sodium level every 8 hours -urea powder 15 bid -Nephrology following Metabolic encephalopathy due to above -improving, expected to fully reocver hypomagnesemia/hypokalemia/ -Oral K and Iv mag replacement and repeat level Seizure-- related to hyponatremia and alcohol -Monitor, no indication for anti epileptic DVT prophylaxis with Lovenox Need for inptL hyponatremia with seizure, sodium still low Quality Stroke Does the patient have a stroke diagnosis?: No VTE Prior VTE?: No VTE Risk Level:: Medical - moderate - high VTE Device Contraindication: N/A - Device Ordered VTE Drug Contraindication: N/A - Med Ordered
[2024-06-22] MEDS: Acetaminophen 325 MG TABLET 650 MG PO (14:36)
[2024-06-22] MEDS: Enoxaparin Sodium 40 MG/0.4 ML SYRINGE SUBCUT (14:36)
[2024-06-22 16:00] VITALS: BP 147/75; PULSE 120; RESP 18; TEMP 36.8; O2SAT 99
[2024-06-22 16:14] LABS: Anion Gap 15 (12-20); Blood Urea Nitrogen 29 mg/dL (9-16); Calcium 9.5 mg/dL (8.4-10.2); Carbon Dioxide 22 mmol/L (22-29); Chloride 94 mmol/L (96-108); Creatinine Clr Calc Pharmacy 105.9; Estimated Glomerular Filt Rate > 60; Glucose Random 114 mg/dL (60-115); Potassium 3.9 mmol/L (3.3-5.1); Sodium 127 mmol/L (135-145)
[2024-06-22 20:00] VITALS: BP 101/58; PULSE 100; RESP 18; TEMP 36.2; O2SAT 97
[2024-06-22] MEDS: hydrOXYzine HCL 50 MG TABLET PO (20:41)
[2024-06-22 23:27] VITALS: BP 110/67; PULSE 91; RESP 18; TEMP 37.2; O2SAT 100
[2024-06-23] MEDS: Acetaminophen 325 MG TABLET 650 MG PO ×3 (01:15→16:29)
[2024-06-23 04:00] VITALS: BP 109/68; PULSE 90; RESP 20; TEMP 37.1; O2SAT 100
--- NOTE | 2024-06-23 06:57 | PC.NURSE ---
propofol infusion documented started as 51.99 mcg/kg/min on 06/18 at 2240 was actually infused at 50 mcg/kg/min as recorded by prior note
[2024-06-23 07:14] VITALS: BP 103/64; PULSE 94; RESP 18; TEMP 36.7; O2SAT 99
[2024-06-23 07:27] LABS: Anion Gap 14 (12-20); Blood Urea Nitrogen 21 mg/dL (9-16); Calcium 9.7 mg/dL (8.4-10.2); Carbon Dioxide 27 mmol/L (22-29); Chloride 94 mmol/L (96-108); Creatinine Clr Calc Pharmacy 111.6; Estimated Glomerular Filt Rate > 60; Glucose Random 94 mg/dL (60-115); Potassium 3.6 mmol/L (3.3-5.1); Sodium 131 mmol/L (135-145)
[2024-06-23 08:00] VITALS: BMI 17.6
[2024-06-23] MEDS: Folic Acid 1 MG TABLET PO (08:45)
[2024-06-23] MEDS: Sodium Chloride Tab 1 GM TABLET PO ×3 (08:45→20:16)
[2024-06-23] MEDS: Thiamine HCL 100 MG TABLET PO (08:45)
[2024-06-23] MEDS: Urea 15 GM POWDER PO ×2 (08:45→20:16)
[2024-06-23] MEDS: 0.9 % Sodium Chloride Flush 3 ML SYRINGE IVFLUSH ×3 (08:46→20:17)
--- NOTE | 2024-06-23 10:20 | MHC.CLN ---
F/U PO INTAKE 75% X1 MEAL DIET ADVANCED TO REGULAR WILL ADD MAGIC CUP BID [id number], 18G PROTEIN MONITOR PO INTAKE AND ENCOURAGE SUPPLEMENT
--- NOTE | 2024-06-23 10:37 | HO.PM.IMPN ---
Subjective Subjective Date of Service: 06/23/24 Interval History: She is doing better today, lucid, sodium is up to 131, K is normal Physical Exam Vital Signs: Vital Signs: Last Vital Signs Temp 98.1 F 06/23/24 07:14 Pulse 94 06/23/24 07:14 Resp 18 06/23/24 07:14 BP 103/64 06/23/24 07:14 Pulse Ox 99 06/23/24 07:14 O2 Del Method Room Air 06/23/24 07:14 O2 Flow Rate 2 06/20/24 16:53 FiO2 21 06/20/24 08:53 Oxygen Flow Rate 8 06/18/24 21:28 BMI result Body Mass Index 17.6 Const: Other: General: AO X 3, no acute distress Resp: CTA bilateral CVS: S1,S2,RRR GI: +BS, NT, no distention Skin: No rash Neuro: motor grossly intact Psych: appropriate affect Objective Data Active Medications Acetaminophen (Acetaminophen 325 Mg Tablet) 650 mg PO Q6H PRN PRN Reason: Pain, Mild (Pain Scale 1-3) Last Admin: 06/23/24 05:59 Dose: 650 mg Documented By: JS Enoxaparin Sodium (Enoxaparin Sodium 40 Mg/0.4 Ml Syringe) 40 mg SUBCUT Q24H [facility] Last Admin: 06/22/24 14:36 Dose: 40 mg Documented By: CAMILLE Folic Acid (Folic Acid 1 Mg Tablet) 1 mg PO DAILY [facility] Last Admin: 06/23/24 08:45 Dose: 1 mg Documented By: CAMILLE Hydroxyzine HCl (Hydroxyzine Hcl 50 Mg Tablet) 50 mg PO Q6H PRN PRN Reason: anxiety/restlessness Last Admin: 06/22/24 20:41 Dose: 50 mg Documented By: JS Pharmacy Consult (Consult Rx Etoh Phenob Im/Po) 1 each MISCELLANE ONCE PRN; Protocol PRN Reason: Consult order Sodium Chloride (0.9 % Sodium Chloride Flush 3 Ml Syringe) 3 ml IVFLUSH QSHIFT [facility] Last Admin: 06/23/24 08:46 Dose: 3 ml Documented By: CAMILLE Sodium Chloride (Sodium Chloride Tab 1 Gm Tablet) 1 gm PO TID [facility] Last Admin: 06/23/24 08:45 Dose: 1 gm Documented By: CAMILLE Thiamine HCl (Thiamine Hcl 100 Mg Tablet) 100 mg PO DAILY [facility] Last Admin: 06/23/24 08:45 Dose: 100 mg Documented By: CAMILLE Urea (Urea 15 Gm Powder) 15 gm PO BID [facility] Last Admin: 06/23/24 08:45 Dose: 15 gm Documented By: CAMILLE Labs 06/22/24 06:17 06/23/24 06:17 Labs: Laboratory Results - last 24 hr 06/22/24 06/22/24 06/23/24 15:34 15:34 06:17 Anion Gap 15 Cancelled 14 Estim Creat Clear Calc 105.9 111.6 Estimated GFR > 60 > 60 Random Glucose 114 94 Calcium 9.5 9.7 Assessment and Plan (1) Acute respiratory failure: Status: Acute (2) Acute hypokalemia: Status: Acute (3) Acute hyponatremia: Status: Acute Plan 33-year-old lady with underlying history of alcohol abuse with delirium tremens with seizures admitted on 06/18/2024 with seizures and hyponatremia requiring intubation for airway protection. Patient received initial bolus of 3% saline with slower rising her sodium 5 mEq in the 1st 24 hours. Extubated on 06/20/2024 and has being confused with metabolic encephalopathy, sodium level rising slowly. On urea and salt tab. Fluid restriction Hyponatremia relatd to alcohol use and excessive water intake--sodium is rising as expected -avoid rapid correction -sodium level every 8 to 12 hrs -urea powder 15 bid -Nephrology following Metabolic encephalopathy, improved - expected to fully reocver hypomagnesemia/hypokalemia/ -Oral K and Iv mag replacement and repeat level Seizure-- related to hyponatremia and alcohol -Monitor, no indication for anti epileptic DVT prophylaxis with Lovenox Need for inptL hyponatremia with seizure, sodium still low Quality Stroke Does the patient have a stroke diagnosis?: No VTE Prior VTE?: No VTE Risk Level:: Medical - moderate - high VTE Device Contraindication: N/A - Device Ordered VTE Drug Contraindication: N/A - Med Ordered
--- NOTE | 2024-06-23 11:01 | MHC.CM.PN ---
Per ROUNDS discussion, Patient is not yet medically cleared for dc (monitoring Na); Patient may benefit from a PT eval to assist with disposition. CM will follow.
[2024-06-23 11:11] LABS: Magnesium 1.7 mg/dL (1.6-2.6)
[2024-06-23 11:45] VITALS: BP 112/82; PULSE 98; RESP 18; TEMP 36.2; O2SAT 99
[2024-06-23] MEDS: Enoxaparin Sodium 40 MG/0.4 ML SYRINGE SUBCUT (12:15)
[2024-06-23] MEDS: Butalb/Acetamin/Caff 50/325/40 TABLET 1 TAB PO ×2 (12:15→20:15)
--- NOTE | 2024-06-23 14:08 | P.PNNP_ITS ---
Subjective Subjective Date of Service: 06/23/24 Interval history: She is doing better today, lucid, sodium is up to 131, K is normal Physical Exam 2 Vital Signs: Vital Signs: Last Vital Signs Temp 97.1 F 06/23/24 11:45 Pulse 98 06/23/24 11:45 Resp 18 06/23/24 11:45 BP 112/82 06/23/24 11:45 Pulse Ox 99 06/23/24 11:45 O2 Del Method Room Air 06/23/24 11:45 O2 Flow Rate 2 06/20/24 16:53 FiO2 21 06/20/24 08:53 Oxygen Flow Rate 8 06/18/24 21:28 BMI result Body Mass Index 17.6 Const: General: no acute distress Neck: Other: R IJ catheter + Resp: Auscultation: diminished lung sounds Cardio: Rate: regular rate GI: Palpation (GI): Soft to palpation Neuro: Other: Intubated and Ventilated Extrem: Other: No edema Objective Data Labs 06/22/24 06:17 06/23/24 06:17 Labs: Laboratory Results - last 24 hr 06/22/24 06/22/24 06/22/24 15:34 15:34 15:34 Sodium 127 L Cancelled Potassium 3.9 D Cancelled Chloride 94 L Carbon Dioxide Anion Gap BUN Creatinine Estim Creat Clear Calc Estimated GFR Random Glucose Calcium Magnesium 06/22/24 06/22/24 06/22/24 15:34 15:34 15:34 Sodium Potassium Chloride Cancelled Carbon Dioxide 22 Cancelled Anion Gap 15 Cancelled BUN 29 H Creatinine 0.59 Estim Creat Clear Calc 105.9 Estimated GFR > 60 Random Glucose 114 Calcium 9.5 Magnesium 06/23/24 06:17 Sodium 131 L Potassium 3.6 Chloride 94 L Carbon Dioxide 27 Anion Gap 14 BUN 21 H Creatinine 0.56 Estim Creat Clear Calc 111.6 Estimated GFR > 60 Random Glucose 94 Calcium 9.7 Magnesium 1.7 Microbiology Microbiology Results: Microbiology 06/19/24 01:07 Blood - Venous Blood Culture - Preliminary No growth after 48 hours. 06/19/24 01:07 Blood - Venous Blood Culture - Preliminary No growth after 48 hours. Procedures Date of Service Date of Service: 06/23/24 Assessment & Plan Assessment and plan (1) Acute hyponatremia: Status: Acute (2) Acute hypokalemia: Status: Acute Plan Hyponatremia multi factorial Had seizure; Was given 3% saline Rate of correction acceptable No need for 3% saline anymore. Urine studies reviewed; Serum potassium improving Needs to avoid rapid correction of serum Na to prevent CPM urea powder 15 g p.o. b.i.d. for 1 more day and reassess Recheck Na q 12hrlys Time Spent With Patient Time: Total time managing care of this patient today ____ minutes. Progress Note: Quality Stroke Does the patient have a stroke diagnosis?: No
--- NOTE | 2024-06-23 14:52 | MHC.RECOVRN ---
Met with pt in 452 after consult placed to Addiction Medicine for AUD. Pt laying in bed, awake, alert, easily engages in conversation,when asked why she was here she states I drink too much water . 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 Pt denies our services. Pt denies other questions or concerns. Discussed with Jamila Cardenas APRN.??
--- NOTE | 2024-06-23 15:29 | P.EN_ITS ---
Event Note Date of Service: 06/23/24 Event Note: Addiction consult placed for patient with AUD Seen by medical affairs director Declined additional resources --already engaged with recovery advocate No follow up indicated Time Spent With Patient Time: Total time managing care of this patient today ____ minutes.
--- NOTE | 2024-06-23 15:29 | PM.EVENT ---
Event Note Date of Service: 06/23/24 Event Note: Addiction consult placed for patient with AUD Seen by web content producer Declined additional resources --already engaged with personal development coach No follow up indicated Time Spent With Patient Time: Total time managing care of this patient today ____ minutes.
[2024-06-23 15:39] VITALS: BP 110/62; PULSE 92; RESP 19; TEMP 36.3; O2SAT 96
[2024-06-23 19:36] VITALS: BP 119/78; PULSE 109; RESP 16; TEMP 36.7; O2SAT 99
[2024-06-23] MEDS: hydrOXYzine HCL 50 MG TABLET PO (20:16)
[2024-06-23 23:52] VITALS: BP 112/57; PULSE 76; RESP 18; TEMP 37; O2SAT 99
--- NOTE | 2024-06-24 | ECG_ITS ---
Test Reason : Prolonged qt Blood Pressure : / mmHG Vent. Rate : 106 BPM Atrial Rate : 106 BPM P-R Int : 140 ms QRS Dur : 076 ms QT Int : 328 ms P-R-T Axes : 063 064 058 degrees QTc Int : 435 ms Sinus tachycardia Otherwise normal ECG When compared with ECG of 24-JUN-2024 05:39, Heart rate has increased Referred By: Grover Brantley Electronically Signed By:MASOOD MAURER
[2024-06-24] MEDS: Butalb/Acetamin/Caff 50/325/40 TABLET 1 TAB PO ×3 (01:41→19:33)
[2024-06-24] MEDS: hydrOXYzine HCL 50 MG TABLET PO ×4 (02:16→20:17)
[2024-06-24 04:00] VITALS: BP 123/79; PULSE 95; RESP 18; TEMP 36.5; O2SAT 100
--- NOTE | 2024-06-24 05:36 | ECG_ITS ---
Test Reason : chest pain Blood Pressure : / mmHG Vent. Rate : 094 BPM Atrial Rate : 094 BPM P-R Int : 136 ms QRS Dur : 076 ms QT Int : 350 ms P-R-T Axes : 069 076 072 degrees QTc Int : 437 ms Normal sinus rhythm Normal ECG When compared with ECG of 22-JUN-2024 12:17, Heart rate has decreased Referred By: Zulay Chavez Electronically Signed By:MASOOD MAURER
[2024-06-24] MEDS: Magnesium Hydrox/Alum Hydrox 30 ML ORAL.SUSP PO (06:17)
[2024-06-24 06:28] LABS: Anion Gap 15 (12-20); Blood Urea Nitrogen 19 mg/dL (9-16); Calcium 9.3 mg/dL (8.4-10.2); Carbon Dioxide 24 mmol/L (22-29); Chloride 97 mmol/L (96-108); Creatinine Clr Calc Pharmacy 105.9; Estimated Glomerular Filt Rate > 60; Glucose Random 86 mg/dL (60-115); Potassium 3.3 mmol/L (3.3-5.1); Sodium 133 mmol/L (135-145)
--- NOTE | 2024-06-24 06:35 | PM.EVENT ---
Event Note Date of Service: 06/24/24 Event Note: Patient with chest pain, midsternal. Obtaining troponin and EKG Time Spent With Patient Time: Total time managing care of this patient today ____ minutes.
[2024-06-24 07:02] VITALS: BMI 17.3
[2024-06-24 07:20] VITALS: BP 114/72; PULSE 91; RESP 18; TEMP 36.7; O2SAT 98
[2024-06-24 07:28] LABS: Troponin-I High Sensitivity < 2.7 ng/L (<3.5-17.0)
[2024-06-24] MEDS: Sodium Chloride Tab 1 GM TABLET PO ×3 (08:45→19:34)
[2024-06-24] MEDS: Thiamine HCL 100 MG TABLET PO (08:45)
[2024-06-24] MEDS: 0.9 % Sodium Chloride Flush 3 ML SYRINGE IVFLUSH ×2 (08:45→19:34)
[2024-06-24] MEDS: Folic Acid 1 MG TABLET PO (08:45)
[2024-06-24] MEDS: Urea 15 GM POWDER PO (08:45)
[2024-06-24 11:20] VITALS: BP 95/53; PULSE 93; RESP 18; TEMP 37.4; O2SAT 100
--- NOTE | 2024-06-24 11:35 | HO.PM.IMPN ---
Subjective Subjective Date of Service: 06/24/24 Interval History: No confuseion, c/o nausea and abdominal discomfort Physical Exam Vital Signs: Vital Signs: Last Vital Signs Temp 99.4 F 06/24/24 11:20 Pulse 93 06/24/24 11:20 Resp 18 06/24/24 11:20 BP 95/53 L 06/24/24 11:20 Pulse Ox 100 06/24/24 11:20 O2 Del Method Room Air 06/24/24 11:20 O2 Flow Rate 2 06/20/24 16:53 FiO2 21 06/20/24 08:53 Oxygen Flow Rate 8 06/18/24 21:28 BMI result Body Mass Index 17.3 Const: Other: General: AO X 3, no acute distress Resp: CTA bilateral CVS: S1,S2,RRR GI: +BS, NT, no distention Skin: No rash Neuro: motor grossly intact Psych: appropriate affect Objective Data Active Medications Acetaminophen (Acetaminophen 325 Mg Tablet) 650 mg PO Q6H PRN PRN Reason: Pain, Mild (Pain Scale 1-3) Last Admin: 06/23/24 16:29 Dose: 650 mg Documented By: CAMILLE Acetaminophen/Butalbital/Caffeine (Butalb/Acetamin/Caff 50/325/40 Tablet) 1 tab PO Q4H PRN PRN Reason: Migraine Headache Last Admin: 06/24/24 08:45 Dose: 1 tab Documented By: CAMILLE Enoxaparin Sodium (Enoxaparin Sodium 40 Mg/0.4 Ml Syringe) 40 mg SUBCUT Q24H [facility] Last Admin: 06/23/24 12:15 Dose: 40 mg Documented By: CAMILLE Folic Acid (Folic Acid 1 Mg Tablet) 1 mg PO DAILY [facility] Last Admin: 06/24/24 08:45 Dose: 1 mg Documented By: CAMILLE Hydroxyzine HCl (Hydroxyzine Hcl 50 Mg Tablet) 50 mg PO Q6H PRN PRN Reason: anxiety/restlessness Last Admin: 06/24/24 08:48 Dose: 50 mg Documented By: CAMILLE Pharmacy Consult (Consult Rx Etoh Phenob Im/Po) 1 each MISCELLANE ONCE PRN; Protocol PRN Reason: Consult order Sodium Chloride (0.9 % Sodium Chloride Flush 3 Ml Syringe) 3 ml IVFLUSH QSHIFT [facility] Last Admin: 06/24/24 08:45 Dose: 3 ml Documented By: CAMILLE Sodium Chloride (Sodium Chloride Tab 1 Gm Tablet) 1 gm PO TID [facility] Last Admin: 06/24/24 08:45 Dose: 1 gm Documented By: CAMILLE Thiamine HCl (Thiamine Hcl 100 Mg Tablet) 100 mg PO DAILY [facility] Last Admin: 06/24/24 08:45 Dose: 100 mg Documented By: CAMILLE Labs 06/22/24 06:17 06/24/24 05:37 Labs: Laboratory Results - last 24 hr 06/24/24 05:37 Hold Purple Top SEE NOTE Anion Gap 15 Estim Creat Clear Calc 105.9 Estimated GFR > 60 Random Glucose 86 Calcium 9.3 Troponin I High Sens < 2.7 Microbiology Microbiology Results: Microbiology 06/19/24 01:07 Blood Culture - Final Blood - Venous No growth after 5 days. 06/19/24 01:07 Blood Culture - Final Blood - Venous No growth after 5 days. Assessment and Plan (1) Acute respiratory failure: Status: Acute (2) Acute hypokalemia: Status: Acute (3) Acute hyponatremia: Status: Acute Plan 33-year-old lady with underlying history of alcohol abuse with delirium tremens with seizures admitted on 06/18/2024 with seizures and hyponatremia requiring intubation for airway protection. Patient received initial bolus of 3% saline with slower rising her sodium 5 mEq in the 1st 24 hours. Extubated on 06/20/2024 and has being confused with metabolic encephalopathy, sodium level rising slowly. On urea and salt tab. Fluid restriction Profound hyponatremia 114 + Seizure -received 3% on presentation -avoid rapid correction, level rising as expected -stop urea powder today per Nephro and salt tab tid for 5 more days and outpatient lab -No indication for anti-epileptic for seizure related to low Na Metabolic encephalopathy--d/t above -resolved - expected to fully reocver hypomagnesemia/hypokalemia--replaced and resolved. Nausea and abd discomfort, ? stomach upset, zofran, if persists CT DVT prophylaxis with Lovenox Need for inptL hyponatremia with seizure, sodium still low if doing ok, can be dc later today Quality Stroke Does the patient have a stroke diagnosis?: No VTE Prior VTE?: No VTE Risk Level:: Medical - moderate - high VTE Device Contraindication: N/A - Device Ordered VTE Drug Contraindication: N/A - Med Ordered
[2024-06-24] MEDS: ondansetron HCL 4 MG/2 ML VIAL IVPUSH ×2 (11:45→20:17)
[2024-06-24 11:47] LABS: PLT CLUMP 1; Red Cell Distribution Width 15.9 % (11.0-16.0)
[2024-06-24 11:49] LABS: Hematocrit 35.4 % (37.0-47.0); Mean Corpuscular HGB Conc 33.9 g/dl (31.0-35.0); Mean Corpuscular Hemoglobin 31.1 pg (27.0-33.0); Mean Corpuscular Volume 91.7 fL (80.0-98.0); Red Blood Count 3.86 X10*6/uL (4.20-5.50)
[2024-06-24 11:51] LABS: White Blood Count 5.9 X10*3/uL (4.8-10.8)
[2024-06-24 11:58] VITALS: BP 123/71; PULSE 114; TEMP 36.8
[2024-06-24 12:05] LABS: Alanine Aminotransferase 17 U/L (0-31); Albumin Level 3.6 g/dL (3.5-5.0); Alkaline Phosphatase 86 U/L (39-117); Aspartate Amino Transferase 24 U/L (5-31); Bilirubin Direct 0.2 mg/dL (0.0-0.5); Bilirubin Total 0.4 mg/dL (0.0-1.0); Lipase 230 U/L (8-78); Total Protein 6.9 g/dL (6.5-8.0)
[2024-06-24 12:10] LABS: Band Neutrophils Percent 3 % (3-5); Eosinophils Absolute Manual 0.2 X10*3/uL (0.0-0.4); Eosinophils Percent Manual 3 % (0-4); Lymphocytes Absolute Manual 2.8 X10*3/uL (1.2-4.9); Lymphocytes Percent Manual 47 % (20-40); Metamyelocytes Absolute 0.3 X10*3/uL; Metamyelocytes Percent 5 %; Monocytes Absolute Manual 0.8 X10*3/uL (0.1-1.2); Monocytes Percent Manual 13 % (2-11); Neutrophils Absolute Manual 1.9 X10*3/uL (2.0-8.3); Neutrophils Percent Manual 29 % (45-73)
[2024-06-24 12:12] LABS: Large Platelet PRESENT; Platelet Estimate NORMAL (NORMAL); Platelet Morphology Comment NOTED; RBC Morphology NORMAL
[2024-06-24] MEDS: Lactated Ringers 1,000 ML 100 ML IVCONT (14:11)
[2024-06-24] MEDS: Enoxaparin Sodium 40 MG/0.4 ML SYRINGE SUBCUT (14:12)
[2024-06-24 15:07] VITALS: BP 110/66; PULSE 82; RESP 18; TEMP 37.1; O2SAT 98
[2024-06-24] MEDS: Acetaminophen 325 MG TABLET 650 MG PO (16:12)
[2024-06-24 19:21] VITALS: BP 110/69; PULSE 91; RESP 18; TEMP 36.5; O2SAT 100
[2024-06-25] VITALS (7 sets, daily range): BP systolic 95–130; BP diastolic 63–84; PULSE 69–94; RESP 16–18; TEMP 36.1–37.2; O2SAT 99–100
[2024-06-25] MEDS: Butalb/Acetamin/Caff 50/325/40 TABLET 1 TAB PO (00:09)
[2024-06-25] MEDS: Lactated Ringers 1,000 ML 100 ML IVCONT ×2 (00:16→09:54)
[2024-06-25] MEDS: hydrOXYzine HCL 50 MG TABLET PO ×3 (02:01→20:04)
[2024-06-25] MEDS: ondansetron HCL 4 MG/2 ML VIAL IVPUSH ×3 (04:33→20:01)
[2024-06-25] MEDS: Acetaminophen 325 MG TABLET 650 MG PO ×3 (04:36→20:04)
[2024-06-25] MEDS: Sodium Chloride Tab 1 GM TABLET PO ×3 (08:42→20:01)
[2024-06-25] MEDS: Folic Acid 1 MG TABLET PO (08:42)
[2024-06-25] MEDS: Thiamine HCL 100 MG TABLET PO (08:42)
[2024-06-25 08:58] LABS: Anion Gap 10 (12-20); Blood Urea Nitrogen 7 mg/dL (9-16); Calcium 8.6 mg/dL (8.4-10.2); Carbon Dioxide 24 mmol/L (22-29); Chloride 100 mmol/L (96-108); Creatinine Clr Calc Pharmacy 109.4; Estimated Glomerular Filt Rate > 60; Glucose Random 81 mg/dL (60-115); Potassium 3.3 mmol/L (3.3-5.1); Sodium 131 mmol/L (135-145)
--- NOTE | 2024-06-25 11:06 | HO.PM.IMPN ---
Subjective Subjective Date of Service: 06/25/24 Interval History: seen and examined abd pain improving wants to try regular diet Physical Exam Vital Signs: Vital Signs: Last Vital Signs Temp 98.9 F 06/25/24 07:15 Pulse 84 06/25/24 07:15 Resp 18 06/25/24 07:15 BP 115/77 06/25/24 07:15 Pulse Ox 100 06/25/24 07:15 O2 Del Method Room Air 06/25/24 07:15 O2 Flow Rate 2 06/20/24 16:53 FiO2 21 06/20/24 08:53 Oxygen Flow Rate 8 06/18/24 21:28 BMI result Body Mass Index 17.3 Const: Other: General - no acute distress, appears comfortable Cardiovascular - regular rate and rhythm, S1-S2 Lungs - normal respiratory effort, clear to auscultation bilaterally, no wheezing Abdomen - soft, nontender, no rebound or guarding Extremities - no edema bilaterally Neuro - awake and alert, no focal deficits Objective Data Active Medications Acetaminophen (Acetaminophen 325 Mg Tablet) 650 mg PO Q6H PRN PRN Reason: Pain, Mild (Pain Scale 1-3) Last Admin: 06/25/24 10:48 Dose: 650 mg Documented By: EUGENIA Acetaminophen/Butalbital/Caffeine (Butalb/Acetamin/Caff 50/325/40 Tablet) 1 tab PO Q4H PRN PRN Reason: Migraine Headache Last Admin: 06/25/24 00:09 Dose: 1 tab Documented By: ALLY Enoxaparin Sodium (Enoxaparin Sodium 40 Mg/0.4 Ml Syringe) 40 mg SUBCUT Q24H [facility] Last Admin: 06/24/24 14:12 Dose: 40 mg Documented By: CAMILLE Folic Acid (Folic Acid 1 Mg Tablet) 1 mg PO DAILY [facility] Last Admin: 06/25/24 08:42 Dose: 1 mg Documented By: EUGENIA Hydroxyzine HCl (Hydroxyzine Hcl 50 Mg Tablet) 50 mg PO Q6H PRN PRN Reason: anxiety/restlessness Last Admin: 06/25/24 08:42 Dose: 50 mg Documented By: EUGENIA Lactated Ringer's (Lr) 1,000 mls @ 100 mls/hr IVCONT .Q10H [facility] Last Admin: 06/25/24 09:54 Dose: 100 mls/hr Documented By: EUGENIA Ondansetron HCl (Ondansetron Hcl 4 Mg/2 Ml Vial) 4 mg IVPUSH Q8H PRN PRN Reason: Nausea and Vomiting Last Admin: 06/25/24 04:33 Dose: 4 mg Documented By: ALLY Pharmacy Consult (Consult Rx Etoh Phenob Im/Po) 1 each MISCELLANE ONCE PRN; Protocol PRN Reason: Consult order Sodium Chloride (0.9 % Sodium Chloride Flush 3 Ml Syringe) 3 ml IVFLUSH QSHIFT [facility] Last Admin: 06/25/24 08:35 Dose: Not Given Documented By: EUGENIA Non-Admin Reason: IV Running Sodium Chloride (Sodium Chloride Tab 1 Gm Tablet) 1 gm PO TID [facility] Last Admin: 06/25/24 08:42 Dose: 1 gm Documented By: EUGENIA Thiamine HCl (Thiamine Hcl 100 Mg Tablet) 100 mg PO DAILY [facility] Last Admin: 06/25/24 08:42 Dose: 100 mg Documented By: EUGENIA Labs 06/24/24 05:37 06/25/24 08:21 Labs: Laboratory Results - last 24 hr 06/24/24 06/25/24 05:37 08:21 MCV 91.7 D MCH 31.1 MCHC 33.9 RDW 15.9 Plt Count Not Reportable MPV Not Reportable Immature Gran % (Auto) Cancelled Neut % (Auto) Cancelled Lymph % (Auto) Cancelled Hubbard % (Auto) Cancelled Eos % (Auto) Cancelled Baso % (Auto) Cancelled Lymph # (Auto) Cancelled Hubbard # (Auto) Cancelled Eos # (Auto) Cancelled Baso # (Auto) Cancelled Abs Immat Gran (auto) Cancelled Absolute Neuts (auto) Cancelled Absolute Nucleated RBC 0.000 Nucleated RBC % (auto) 0.0 Neutrophils % (Manual) 29 L Band Neutrophils % 3 Lymphocytes % (Manual) 47 H Monocytes % (Manual) 13 H Eosinophils % (Manual) 3 Metamyelocytes % 5 Abs Neuts (Manual) 1.9 L Lymphocytes # (Manual) 2.8 Monocytes # (Manual) 0.8 Eosinophils # (Manual) 0.2 Metamyelocytes # 0.3 Platelet Estimate NORMAL Large Platelets PRESENT Plt Morphology Comment NOTED RBC Morphology NORMAL Anion Gap 10 L Estim Creat Clear Calc 109.4 Estimated GFR > 60 Random Glucose 81 Calcium 8.6 D Total Bilirubin 0.4 Direct Bilirubin 0.2 AST 24 ALT 17 Alkaline Phosphatase 86 Total Protein 6.9 Albumin 3.6 Lipase 230 H Assessment and Plan (1) Alcohol use disorder, severe, dependence: Status: Acute Plan 33-year-old lady with underlying history of alcohol abuse with delirium tremens with seizures admitted on 06/18/2024 with seizures and hyponatremia requiring intubation for airway protection. Patient received initial bolus of 3% saline with slower rising her sodium 5 mEq in the 1st 24 hours. Extubated on 06/20/2024 and has being confused with metabolic encephalopathy, sodium level rising slowly. On urea and salt tab. Fluid restriction Profound hyponatremia 114 + Seizure -received 3% on presentation -avoid rapid correction, level rising as expected -stop urea powder today per Nephro and salt tab tid for 5 more days and outpatient lab -No indication for anti-epileptic for seizure related to low Na normalized Metabolic encephalopathy--d/t above -resolved - expected to fully reocver hypomagnesemia/hypokalemia--replaced and resolved. ? gastritis vs mild pancreatitis pt reports improvment, wants to try solids alcohol dependence with jojoalison seen by addiction med -- see notes DVT prophylaxis with Lovenox if tolerates diet, will likely d/c later today Quality Stroke Does the patient have a stroke diagnosis?: No VTE Prior VTE?: No VTE Risk Level:: Medical - moderate - high VTE Device Contraindication: N/A - Device Ordered VTE Drug Contraindication: N/A - Med Ordered
[2024-06-25] MEDS: Enoxaparin Sodium 40 MG/0.4 ML SYRINGE SUBCUT (12:56)
[2024-06-25] MEDS: Famotidine/PF 20 MG/2 ML VIAL IVPUSH (12:57)
[2024-06-25] MEDS: 0.9 % Sodium Chloride Flush 3 ML SYRINGE IVFLUSH ×2 (16:19→20:01)
[2024-06-26] MEDS: hydrOXYzine HCL 50 MG TABLET PO ×2 (02:52→09:23)
[2024-06-26] MEDS: Acetaminophen 325 MG TABLET 650 MG PO ×2 (02:52→09:18)
[2024-06-26 03:06] VITALS: BP 111/66; PULSE 69; RESP 18; TEMP 35.7; O2SAT 99
[2024-06-26 08:00] VITALS: BP 109/71; PULSE 74; RESP 18; TEMP 36.7; O2SAT 98
[2024-06-26] MEDS: Thiamine HCL 100 MG TABLET PO (09:18)
[2024-06-26] MEDS: Sodium Chloride Tab 1 GM TABLET PO (09:18)
[2024-06-26] MEDS: Folic Acid 1 MG TABLET PO (09:19)
[2024-06-26] MEDS: 0.9 % Sodium Chloride Flush 3 ML SYRINGE IVFLUSH (09:19)
--- NOTE | 2024-06-26 10:32 | PM.DS ---
DS: Providers Provider Date of Service: 06/26/24 Date of admission: 06/18/24 23:02 Date of discharge: 06/26/24 Primary care physician: Unknown Physician Consults: 06/21/24 17:23 Consult to Nephrology Routine Consulting Provider: [facility] Reason for consultation: hyponatremia, seizure Has provider been notified: Yes 06/23/24 07:48 Addiction Medicine Routine Consulting Provider: Addiction [facility] Reason for consultation: Alcohol use disorder Has provider been notified: No DS: Diagnosis Discharge Diagnosis (1) Alcohol use disorder, severe, dependence: Status: Acute DS: Summary Hospital Course Hospital Course: Admission HPI Chief Complaint: Seizure The patient is a 33-year-old female with a past medical history of alcohol abuse with history of withdrawal seizures who presented to the emergency department ? after having seizures.? According to EMS,? boyfriend called because patient is seen unresponsive,? when paramedics arrived the patient was found in bed, seemingly in postictal.? In route to the hospital the patient had a witnessed seizure that lasted approximately 2 minutes,? they gave 2 mg IM ? Midazolam, establish IV access and give an additional 2 mg of IV? midazolam.? Boyfriend reports patient was sober for a couple weeks,? but unsure if she was drinking this weekend as boyfriend was out of town, reports that? patient was very sleepy all Wednesday.? He also reports? increase water intake ?On arrival to emergency department,? patient tachycardic, hypertensive, tachypneic and minimally responsive requiring emergent intubation for airway protection. Laboratory data was significant for WBC 12.7, serum sodium 114, potassium 2.4, chloride 54, serum bicarb 33, anion gap? 29, lactic acid 11.6, AST 37,? alk phos 158, CK 367.? ?Imaging:? ?Chest x-ray:? no acute findings ED COURSE:? ?Patient received a total of 4 mg of IV push Ativan, phenobarb 577 mg, 1 L bolus of normal saline,? bicarb IV push 50 mEq, and potassium 10 mEq Hospital course: 33-year-old lady with underlying history of alcohol abuse with delirium tremens with seizures admitted on 06/18/2024 with seizures and hyponatremia requiring intubation for airway protection. Patient received initial bolus of 3% saline with slower rising her sodium 5 mEq in the 1st 24 hours. Extubated on 06/20/2024 and has being confused with metabolic encephalopathy, which has now resolveed. Sodium level has steadily risen at presently 133. Management consisted of fluid restriction, urea powder (now stopped), sodium tablets. Nephrology has been following her and recommend 3 more days of sodium tab. She is also advised to avoid excessive water intake and to stay sober. hypomagnesemia/hypokalemia--related to above, replaced and resolved. gastritis vs mild pancreatitis--managed conservatively. US of abdomen showed generalized fatty infiltration c/w her history of alcohol use disorder. Abdominal pain has resolved and tolerating regular diet. alcohol dependence with pierce seen by addiction med -- see notes Final diagnoses: Severe hyponatremia Acute seizure due to hyponatremia Hypokalemia Hypomagnesemia Mild pancreatitis Fatty liver disease Alcohol use disorder Time Attestation Discharge Coordination Time (in mins): 45 Quality: Safe Use of Opioids Does Pt have an Active Cancer Diagnosis on the Problem List?: No Quality: Stroke Does the patient have a stroke diagnosis?: No Physical Exam Vital Signs: Vital Signs: Last Vital Signs Temp 98.1 F 06/26/24 08:00 Pulse 74 06/26/24 08:00 Resp 18 06/26/24 08:00 BP 109/71 06/26/24 08:00 Pulse Ox 98 06/26/24 08:00 O2 Del Method Room Air 06/26/24 08:00 O2 Flow Rate 2 06/20/24 16:53 FiO2 21 06/20/24 08:53 Oxygen Flow Rate 8 06/18/24 21:28 BMI result Body Mass Index 17.3 Const: Other: General - no acute distress, appears comfortable Cardiovascular - regular rate and rhythm, S1-S2 Lungs - normal respiratory effort, clear to auscultation bilaterally, no wheezing Abdomen - soft, nontender, no rebound or guarding Extremities - no edema bilaterally Neuro - awake and alert, no focal deficits DS: Data Data Completed and Pending Completed studies during hospitalization [Text1]: Procedures Detoxification Services for Substance Abuse Treatment (05/22/23) Discharge Plan Discharge Anticipated Discharge Date/Time: 06/26/24 10:31 Patient Disposition: Home, Self-Care Discharge Diagnosis: symptomatic hyponatremia, seizure, acute pancreatitis Referrals: Physician,Unknown J [Primary Care Provider] - 1 Week Discharge Medications: Continued naltrexone 50 mg tablet 50 mg PO DAILY Qty: 30 0RF multivitamin [Daily-Laura] Tablet 1 tab PO DAILY Qty: 30 0RF magnesium oxide 400 mg (241.3 mg magnesium) Tablet 400 mg PO BIDPC Qty: 4 0RF folic acid 1 mg Tablet 1 mg PO DAILY Qty: 30 0RF thiamine mononitrate (vit B1) 100 mg Tablet 100 mg PO DAILY Qty: 30 0RF quetiapine 25 mg tablet 25 mg PO TID PRN (Reason: anxiety) sennosides [senna] 8.6 mg tablet 8.6 - 17.2 mg PO BEDTIME PRN (Reason: constipation) sucralfate 1 gram tablet 1 g PO QID omeprazole 20 mg capsule,delayed release(DR/EC) 20 mg PO BID hydroxyzine HCl 25 mg tablet 25 - 50 mg PO DAILY PRN (Reason: anxiety) quetiapine 50 mg tablet 50 - 100 mg PO BEDTIME Vivitrol 380 mg suspension,extended rel recon 380 mg IM Q4W Qty: 1 5RF Discharge Orders: Discharge Order (Routine); Ordered 06/26/24 Ordered By: Grover Brantley Diet: Advance to usual diet Activity on Discharge: As tolerated Stand Alone Forms: Patient Portal Discharge page Print Language: Latvian Other Ambulatory Orders: Basic Metabolic Panel (Routine) Timeframe: [id number] Facility: [facility] - Location: Laboratory Ordered By: Grover Brantley Care Plan Goals: To stay healthy and out of the hospital. Health Concerns: see d/c summary Plan of Treatment: see d/c summary Assessment: see d/c summary Discharge Date/Time: 06/26/24 11:57
[2024-06-26 10:52] LABS: Anion Gap 15 (12-20); Blood Urea Nitrogen 6 mg/dL (9-16); Calcium 8.9 mg/dL (8.4-10.2); Carbon Dioxide 19 mmol/L (22-29); Chloride 102 mmol/L (96-108); Creatinine Clr Calc Pharmacy 105.6; Estimated Glomerular Filt Rate > 60; Glucose Random 94 mg/dL (60-115); Lipase 152 U/L (8-78); Potassium 3.3 mmol/L (3.3-5.1); Sodium 133 mmol/L (135-145)
--- NOTE | 2024-06-26 11:51 | MHC.CM.PN ---
Patient has been medically cleared for dc to home today, self care.
== END 2024-06-26 11:57 | disposition home or self-care (01) | DRG 426 ==
LOC: HO.ED 22:56 → HO.EDOVER 23:11 → HO.ICU 23:48 → HO.IMC 06-21 12:40
PROVIDERS: Family Medicine; Internal Medicine Hypertension Specialist; Internal Medicine Pulmonary Disease; Nurse Practitioner Family; Student in an Organized Health Care Education/Training Program; Admitting Provider Registered Nurse Community Health; Emergency Provider Emergency Medicine; Visit Provider Internal Medicine
DX: E87.1 Hypo-osmolality and hyponatremia (principal); J96.00 Acute respiratory failure, unspecified whether with hypoxia or hypercapnia; F10.231 Alcohol dependence with withdrawal delirium; K85.90 Acute pancreatitis without necrosis or infection, unspecified; R56.9 Unspecified convulsions; K29.70 Gastritis, unspecified, without bleeding; E83.42 Hypomagnesemia; E87.6 Hypokalemia; I10 Essential (primary) hypertension; R63.6 Underweight; Z68.1 Body mass index [BMI] 19.9 or less, adult; Z20.822 Contact with and (suspected) exposure to COVID-19; Z91.041 Radiographic dye allergy status; Z79.899 Other long term (current) drug therapy
CPT/HCPCS: 0241U; 36415; 36600; 70450; 71045; 76705; 80048; 80051; 80053; 80076; 80307; 81001; 82040; 82550; 82803; 82947; 83605; 83690; 83735; 83880; 83930; 83935; 84100; 84300; 84443; 84484; 84702; 85007; 85025; 85027; 85610; 86140; 87040; 92950; 93005; 94002; 94003; 94799; 99284; C1758; J1650; J2060; J2250; J2251; J2359; J2405; J2543; J2560; J2704; J3010; J3411; J3475; J3480; J7120; J7131; P9047

== ENCOUNTER → 2024-06-18 23:02 | Outpatient (BNV) | payer OTHER, SELFPAY | PROVIDERS: Admitting Provider Registered Nurse Community Health; Emergency Provider Emergency Medicine; Visit Provider Internal Medicine | DX: F10.20 Alcohol dependence, uncomplicated (principal) | CPT/HCPCS: 99232; 99239; 99499 ==

== ENCOUNTER → 2024-06-18 23:02 | Outpatient (BNV) | payer OTHER, SELFPAY | PROVIDERS: Admitting Provider Registered Nurse Community Health; Emergency Provider Emergency Medicine; Visit Provider Registered Nurse Community Health | DX: G40.901 Epilepsy, unspecified, not intractable, with status epilepticus (principal); F10.939 Alcohol use, unspecified with withdrawal, unspecified; E87.1 Hypo-osmolality and hyponatremia; E87.6 Hypokalemia; J96.00 Acute respiratory failure, unspecified whether with hypoxia or hypercapnia | CPT/HCPCS: 36556; 99291; 99292 ==

== ENCOUNTER → 2024-06-18 23:02 | Outpatient (BNV) | payer OTHER, SELFPAY | PROVIDERS: Admitting Provider Registered Nurse Community Health; Emergency Provider Emergency Medicine; Visit Provider Internal Medicine Pulmonary Disease | DX: E87.6 Hypokalemia (principal); E87.1 Hypo-osmolality and hyponatremia; F10.939 Alcohol use, unspecified with withdrawal, unspecified | CPT/HCPCS: 99232; 99291 ==

== ENCOUNTER → 2024-06-18 23:02 | Outpatient (BNV) | payer OTHER, SELFPAY | PROVIDERS: Admitting Provider Registered Nurse Community Health; Emergency Provider Emergency Medicine; Visit Provider Internal Medicine Nephrology | DX: E87.1 Hypo-osmolality and hyponatremia (principal); E87.6 Hypokalemia | CPT/HCPCS: 99223; 99232 ==

== ENCOUNTER 2024-08-29 02:26 | Inpatient (IN) | payer OTHER, SELFPAY ==
[2024-08-29] VITALS (9 sets, daily range): BP systolic 118–172; BP diastolic 68–113; PULSE 108–143; RESP 14–25; TEMP 36.6–37.6; O2SAT 94–99; BMI 20.9
--- NOTE | 2024-08-29 02:39 | ECG_ITS ---
Test Reason : N/V Blood Pressure : / mmHG Vent. Rate : 130 BPM Atrial Rate : 130 BPM P-R Int : 132 ms QRS Dur : 078 ms QT Int : 308 ms P-R-T Axes : 074 090 056 degrees QTc Int : 453 ms Sinus tachycardia Rightward axis Borderline ECG When compared with ECG of 24-JUN-2024 08:23, No significant change was found Referred By: Generic ED Physician Electronically Signed By:IGLESIA CONROY
[2024-08-29 03:00] LABS: MANUAL DIFF FLAG NO
[2024-08-29 03:04] LABS: Basophils Absolute Auto 0.1 X10*3/uL (0.0-0.2); Basophils Percent Auto 0.5 % (0-2); Eosinophils Percent Auto 0.2 % (0-4); Hematocrit 40.9 % (37.0-47.0); Hemoglobin 14.2 g/dl (12.0-16.0); Imm Gran Abs Auto 0.05 X10*3/uL (0.00-0.03); Imm Gran Pct Auto 0.3 % (0.0-0.4); Lymphocytes Absolute Auto 2.3 X10*3/uL (1.2-4.9); Lymphocytes Percent Auto 15.2 % (20-40); Mean Corpuscular HGB Conc 34.7 g/dl (31.0-35.0); Mean Corpuscular Hemoglobin 29.6 pg (27.0-33.0); Mean Corpuscular Volume 85.2 fL (80.0-98.0); Mean Platelet Volume 8.2 fL (9.4-12.3); Monocytes Absolute Auto 0.7 X10*3/uL (0.1-1.2); Monocytes Percent Auto 4.4 % (2-11); Neutrophils Absolute Auto 11.8 x10*3/uL (2.0-8.3); Neutrophils Percent Auto 79.4 % (45-73); Platelet Count 819 X10*3/uL (160-400); Red Cell Distribution Width 13.2 % (11.0-16.0); White Blood Count 14.9 X10*3/uL (4.8-10.8)
--- NOTE | 2024-08-29 03:19 | ED.NAVMDI ---
HPI - Nausea/Vomiting/Diarrhea General Chief complaint: Nausea/Vomiting/Diarrhea Stated complaint: Multiple Complaints Time Seen by Provider: 08/29/24 03:04 Source: patient and family Mode of arrival: ambulatory Limitations: no limitations History of Present Illness ED Provider: Dr. Alesha Arreaga HPI Narrative: Patient comes to the emergency room complaining of nausea vomiting, generalized abdominal pain, flu-like symptoms. Patient states that she does drink alcohol almost every day, last drink a few hours prior to coming in. Patient states that she has been vomiting for the last 5 hours. Patient's boyfriend at bedside, last time that the patient was here patient needed to be intubated to seizure secondary to hyponatremia. Patient admits that she drinks a large amount of water. Patient states that she drank 0.5 gal of water. However, the boyfriend believes that she have drank more than a gal. Related Data Home Medications ?Medication ?Instructions ?Recorded ?Confirmed hydroxyzine HCl 25 mg tablet 25 - 50 mg PO DAILY PRN anxiety 06/19/24 06/19/24 omeprazole 20 mg capsule,delayed 20 mg PO BID 06/19/24 06/19/24 release quetiapine 25 mg tablet 25 mg PO TID PRN anxiety 06/19/24 06/19/24 quetiapine 50 mg tablet 50 - 100 mg PO BEDTIME 06/19/24 06/19/24 sennosides 8.6 mg tablet (senna) 8.6 - 17.2 mg PO BEDTIME PRN 06/19/24 06/19/24 constipation sucralfate 1 gram tablet 1 g PO QID 06/19/24 06/19/24 Previous Rx's ?Medication ?Instructions ?Recorded folic acid 1 mg tablet 1 mg PO DAILY #30 tabs 05/24/23 magnesium oxide 400 mg (241.3 mg 400 mg PO BIDPC #4 tabs 05/24/23 magnesium) tablet multivitamin (Daily-Laura tablet) 1 tab PO DAILY #30 tabs 05/24/23 thiamine mononitrate (vit B1) 100 100 mg PO DAILY #30 tabs 05/24/23 mg tablet naltrexone microspheres 380 mg 380 mg IM Q4W #1 ea 05/31/23 intramuscular suspension,extended release (Vivitrol) naltrexone 50 mg tablet 50 mg PO DAILY #30 tabs 02/28/24 Allergies Allergy/AdvReac Type Severity Reaction Status Date / Time Iodinated Contrast Media AdvReac Hives Verified 08/29/24 02:35 [Contrast Dye] Review of Systems Review of Systems: Constitutional : No Weight loss, No Fever, No Chills, No Night Sweats, complaining of generalized malaise ENT/Mouth : No Hearing loss, No Ear Pain, No Nasal Congestion, No Sinus Pain, No Hoarseness, No sore throat, No Rhinorrhea, No Swallowing Difficulty Eyes: No Eye Pain, No Swelling, No Redness, No Foreign Body, No Discharge, No Vision Changes Cardiovascular : No Chest Pain, No SOB, No Dyspnea on Exertion, No Orthopnea, No Edema, No Palpitations Respiratory : No Cough, No Sputum, No Wheezing, No Smoke Exposure, No Dyspnea Gastrointestinal : Complaining of nausea vomiting, diffuse abdominal ache Genitourinary : no irregular bleeding, No Dysuria, No Urinary Frequency, No Hematuria, No Urinary Incontinence, No Urgency, No Flank Pain, No Urinary Flow Changes, No Hesitancy Musculoskeletal : No joint pain, No Myalgias, No Joint Swelling Skin : No Skin Lesions, No rash Neuro : No Weakness, No Numbness, No Paresthesias, No Loss of Consciousness, No Dizziness, No Headache Psych : No Anxiety/Panic, No Depression, No SI/HI/AH/VH, admits to drinking alcohol Heme/Lymph: No Bruising, No Bleeding,No Lymphadenopathy Endocrine : No Polyuria, No Polydipsia, No Temperature Intolerance PMFSH Past Medical History Medical History Acute respiratory failure Acute hypokalemia Acute hyponatremia Alcohol withdrawal Status epilepticus Alcohol use disorder, severe, dependence Withdrawal seizures Depression Alcoholism Social History Social History (Updated 04/21/21 @ 11:11 by Citlalli Knight DO) Household Members: Significant Other Housing: Unknown / Unable to assess Do you presently have visiting nurse or other home services: No Alcohol intake: current Alcohol intake frequency: 3 or more drinks per day Alcohol type: hard liquor Comment: pt refused bed alarm Patient Tobacco Use Status: Tobacco use Unknown Smoked in Last 30 Days: No Use of substances other than those prescribed or required for medical reasons: No Substance Use Type: Marijuana Advance Directives: No Advance Directives Information Provided: Yes Patient : No service: No Physical Exam Vital Signs: Vital Signs: Last Vital Signs Pulse 138 H 08/29/24 03:03 Resp 22 H 08/29/24 03:03 BP 131/95 H 08/29/24 03:03 Pulse Ox 99 08/29/24 03:03 O2 Del Method Room Air 08/29/24 03:03 BMI result Body Mass Index 20.9 Const: Other: Appearance: Alert. Oriented X3. Jittery, seems uncomfortable Eyes: Pupils equal, round and reactive to light. ENT: Pharynx normal. Neck: Normal inspection. Neck supple. No lymph nodes noted. No crepitus CVS: Tachycardic, heart rate in the 130s to 140s. Pulses normal. Normal S1 and S2 Respiratory: No respiratory distress. Breath sounds normal. No Wheezing. No rales Abdomen: Soft, diffuse achiness to palpation in all quadrants No rigidity. No distention. Skin: Skin warm and dry. Normal skin color. Normal skin turgor. Extremities: No lower extremity edema. No Lacerations. No Rash Neuro: Oriented X 3. No motor deficit. No sensory deficit. Moving all extremities. No slurred speech. CN 2 through 12 grossly intact Psych: calm, cooperative, normal affect Course Course Course Narrative: -all of patient's labs pending. -last time that the patient was here, patient had significantly low sodium. Patient admits that she has been drinking a large amount of fluid. However, patient keeps changing her answer, anywhere between 0.5 L to over a gal -patient receiving normal saline, we will start slow until we get the labs back. Patient also received Zofran and Ativan IV. Until now, patient has not had any seizure-like activity. Medications Administered Discontinued Medications Generic Name Dose Route Start Last Admin Trade Name Hermann PRN Reason Stop Dose Admin Acetaminophen 650 mg 08/29/24 04:14 08/29/24 04:17 Acetaminophen 325 Mg Tablet PO 08/29/24 04:15 650 mg ONCE ONE Administration Sodium Chloride 1,000 mls @ 999 mls/hr 08/29/24 03:28 08/29/24 03:35 Ns IVCONT 08/29/24 04:28 999 mls/hr .Q1H1M ONE Administration Lorazepam 2 mg 08/29/24 03:17 08/29/24 03:35 Lorazepam 2 Mg/Ml Vial IVPUSH 08/29/24 03:18 2 mg ONCE ONE Administration Ondansetron HCl 4 mg 08/29/24 03:17 08/29/24 03:35 Ondansetron Hcl 4 Mg/2 Ml Vial IVPUSH 08/29/24 03:18 4 mg ONCE ONE Administration Medical Decision Making Medical Decision Making [facility] Narrative: My interpretation of labs: Patient's white blood cell count 14.9, platelets 819. No significant electrolyte abnormalities, normal sodium, LFTs elevated in alcohol abuse pattern. Alcohol level 370. -patient received IV fluids, Ativan. -patient awake and alert, I discussed with the patient that today she does not have hyponatremia or significant electrolyte abnormalities. However, her alcohol level is very high. I discussed with the patient if she wants detox. Patient is awake alert and coherent. Patient states that eventually she would like to go to a detox program. At this time, she has a girls swimming coach, takes Vivitrol, -patient requesting 1 more dose of Ativan to help with anxiety. -plan: Metabolize to freedom in discharged with sober ride. -physician observation started at 04:45 Differential Diagnosis Differential Diagnoses: The differential diagnosis associated with the presentation includes (Alcohol abuse, polysubstance abuse, anxiety, depression) Admission/Observation Consideration of admission/observation: Escalation of care including admission/observation considered (Patient is under physician observation waiting to become more sober to be discharged) Lab Data [facility] Lab Attestation statement: I reviewed the patient's lab results. 08/29/24 02:57 08/29/24 02:57 Labs: Lab Results 08/29/24 08/29/24 Range/Units 02:57 03:11 WBC 14.9 H (4.8-10.8) X10*3/uL RBC 4.80 D (4.20-5.50) X10*6/uL Hgb 14.2 (12.0-16.0) g/dl Hct 40.9 (37.0-47.0) % MCV 85.2 (80.0-98.0) fL MCH 29.6 (27.0-33.0) pg MCHC 34.7 (31.0-35.0) g/dl RDW 13.2 (11.0-16.0) % Plt Count 819 H D (160-400) X10*3/uL MPV 8.2 L (9.4-12.3) fL Immature Gran % (Auto) 0.3 (0.0-0.4) % Neut % (Auto) 79.4 H (45-73) % Lymph % (Auto) 15.2 L (20-40) % [place] % (Auto) 4.4 (2-11) % Eos % (Auto) 0.2 (0-4) % Baso % (Auto) 0.5 (0-2) % Lymph # (Auto) 2.3 (1.2-4.9) X10*3/uL [place] # (Auto) 0.7 (0.1-1.2) X10*3/uL Eos # (Auto) 0.0 (0.0-0.4) X10*3/uL Baso # (Auto) 0.1 (0.0-0.2) X10*3/uL Abs Immat Gran (auto) 0.05 H (0.00-0.03) X10*3/uL Absolute Neuts (auto) 11.8 H (2.0-8.3) x10*3/uL Absolute Nucleated RBC 0.000 (0.0-0.012) X10*3/uL Nucleated RBC % (auto) 0.0 (0.0-0.2) /100WBC Sodium 144 (135-145) mmol/L Potassium 3.5 (3.3-5.1) mmol/L Chloride 101 (96-108) mmol/L Carbon Dioxide 17 L (22-29) mmol/L Anion Gap 30 H (12-20) BUN 12 (9-16) mg/dL Creatinine 0.86 (0.5-1.4) mg/dL Estim Creat Clear Calc 83.6 Estimated GFR > 60 Random Glucose 179 H (60-115) mg/dL Calcium 9.7 D (8.4-10.2) mg/dL Magnesium 1.9 (1.6-2.6) mg/dL Total Bilirubin 0.4 (0.0-1.0) mg/dL AST 69 H (5-31) U/L ALT 37 H (0-31) U/L Alkaline Phosphatase 130 H (39-117) U/L Total Protein 9.1 H (6.5-8.0) g/dL Albumin 4.7 (3.5-5.0) g/dL Lipase 9 (8-78) U/L Beta HCG, Quant < 2 mIU/mL Ethyl Alcohol 370 H* mg/dL COVID-19 (RACHAEL) Negative (Negative) COVID-19 Clin Com See Note Influenza Type A (REGINO) Negative (Negative) Influenza Type B (REGINO) Negative (Negative) Influenza A & B Note See Note Critical Care Time Critical Care Time Critical Care Time: Yes Total Critical Care Time: 35 Attestation: I have personally provided critical care time. Time includes review of lab data, radiology results, discussion with consultants, and monitoring for potential decompensation. Intervention performed as documented. Discharge Plan Discharge Clinical Impression: Dehydration, Alcohol intoxication Patient Disposition: Home, Self-Care Instructions: Dehydration (ED), Alcohol Intoxication (ED) Additional Instructions: Please follow-up with your primary care physician tomorrow. If you have any worsening or new symptoms, please return to the emergency room or call 911 Prescriptions: No Action naltrexone 50 mg tablet 50 mg PO DAILY Qty: 30 0RF multivitamin [Daily-Laura] Tablet 1 tab PO DAILY Qty: 30 0RF magnesium oxide 400 mg (241.3 mg magnesium) Tablet 400 mg PO BIDPC Qty: 4 0RF folic acid 1 mg Tablet 1 mg PO DAILY Qty: 30 0RF thiamine mononitrate (vit B1) 100 mg Tablet 100 mg PO DAILY Qty: 30 0RF quetiapine 25 mg tablet 25 mg PO TID PRN (Reason: anxiety) sennosides [senna] 8.6 mg tablet 8.6 - 17.2 mg PO BEDTIME PRN (Reason: constipation) sucralfate 1 gram tablet 1 g PO QID omeprazole 20 mg capsule,delayed release(DR/EC) 20 mg PO BID hydroxyzine HCl 25 mg tablet 25 - 50 mg PO DAILY PRN (Reason: anxiety) quetiapine 50 mg tablet 50 - 100 mg PO BEDTIME Vivitrol 380 mg suspension,extended rel recon 380 mg IM Q4W Qty: 1 5RF Print Language: Lao
[2024-08-29 03:24] LABS: Alanine Aminotransferase 37 U/L (0-31); Albumin Level 4.7 g/dL (3.5-5.0); Alkaline Phosphatase 130 U/L (39-117); Anion Gap 30 (12-20); Aspartate Amino Transferase 69 U/L (5-31); Bilirubin Total 0.4 mg/dL (0.0-1.0); Blood Urea Nitrogen 12 mg/dL (9-16); Calcium 9.7 mg/dL (8.4-10.2); Carbon Dioxide 17 mmol/L (22-29); Chloride 101 mmol/L (96-108); Creatinine Clr Calc Pharmacy 83.6; Estimated Glomerular Filt Rate > 60; Ethanol 370 mg/dL; Glucose Random 179 mg/dL (60-115); Lipase 9 U/L (8-78); Magnesium 1.9 mg/dL (1.6-2.6); Potassium 3.5 mmol/L (3.3-5.1); Sodium 144 mmol/L (135-145); Total Protein 9.1 g/dL (6.5-8.0)
[2024-08-29] MEDS: 0.9 % Sodium Chloride 1,000 ML 999 ML IVCONT (03:35)
[2024-08-29] MEDS: LORazepam 2 MG/ML VIAL IVPUSH (03:35)
[2024-08-29] MEDS: ondansetron HCL 4 MG/2 ML VIAL IVPUSH ×2 (03:35→09:31)
[2024-08-29 03:46] LABS: HCG Quantitative < 2 mIU/mL
--- NOTE | 2024-08-29 03:52 | PC.NURSE ---
Patient placed on monitor tech, sinus tachy hr 119-140. 20 G IV line established in R AC, labs drawn and sent to lab for processing. Patient medicated per DEC. CIWA assessment completed, scored 13, Dr. Arreaga made aware. Patient currently resting on a stretcher bed, call mcgovern in reach, plan of care ongoing.
[2024-08-29 04:12] LABS: COVID-19 Test Negative (Negative); IDNOW Serial# 08D9AD1C; IDNOW Serial# 152EDE1D; Influenza A Negative (Negative); Influenza B2 Negative (Negative)
[2024-08-29] MEDS: Acetaminophen 325 MG TABLET 650 MG PO ×3 (04:17→21:36)
--- NOTE | 2024-08-29 05:00 | PC.NURSE ---
report received from Sylvester HURTADO, assume care of pt at this time
[2024-08-29 05:14] LABS: Appearance Urine Clear; Color Urine Yellow; Glucose Urine UA Negative (Negative); Leukocyte Esterase Urine Negative (Negative); Nitrite Urine Negative (Negative); Specific Gravity - Urine >= 1.030 (1.005-1.025); UMIC TRIGGER UACC YES; Urine Blood Negative (Negative); Urine Ketones 15 mg/dL (Negative); Urine Protein 300 (3+) mg/dL (Neg-Trace)
[2024-08-29 05:27] LABS: Amphetamine Screen Urine Not Detected (Not Detect); Bacteria Urine 1+ (None Seen); Barbiturates, Urine Not Detected (Not Detect); Benzodiazepines Screen Urine Not Detected (Not Detect); Buprenorphine Scr Not Detected (Not Detect); Cannabinoid Screen Urine Not Detected (Not Detect); Cocaine Screen Urine Not Detected (Not Detect); Fentanyl, urine Not Detected (Not Detect); Methadone Screen, Urine Not Detected (Not Detect); Opiate Screen Urine Not Detected (Not Detect); Oxycodone Screen Urine Not Detected (Not Detect); Phencyclidine Screen Urine Not Detected (Not Detect); RBC Urine 0-2 /HPF (0-2); WBC Urine 0-5 /HPF (0-5)
[2024-08-29] MEDS: LORazepam 1 MG TABLET PO (05:28)
--- NOTE | 2024-08-29 06:54 | PC.NURSE ---
report given to page HURTADO
[2024-08-29] MEDS: LORazepam 2 MG/ML VIAL 1 MG IVPUSH (07:56)
--- NOTE | 2024-08-29 07:57 | PC.NURSE ---
pt currently a&ox3, rr equal and non labored, monitoring analyst sinus tach, pt hypertensive and complaining of 8/10 generalized pain. CIWA score was 9, due to pts history of seizures with withdrawals this nurse applied seizure pads, fall precautions put in place and patient moved from room 20 to 21 to have a better visual of her. Pt medicated per order, pt given po gingerale with ice per her request, call mcgovern within reach, will continue to monitor.
--- NOTE | 2024-08-29 09:32 | PC.NURSE ---
pt a&ox3, ciwa 15, cardiac tech sinus tach, pt continues to be hypertensive, pt is now vomiting, dr. avery notified- zofran ordered and given, pt also requesting medication for headache, will notify provider and continue to monitor
[2024-08-29] MEDS: Ketorolac Tromethamine 15 MG/ML VIAL IVPUSH (10:21)
[2024-08-29] MEDS: PHENobarbitaL sodium 130 MG/ML IM ONCE 182 MG IM (10:21)
--- NOTE | 2024-08-29 10:26 | PC.NURSE ---
pt a&ox3, sinus tach on registered nurse cardiac, pt medicated for 8/10 generalized body pain as well as headache, pt also started on phenobarb protocol. hospitalist to see the patient for admission. pt given ice and gingerale per her request.
--- NOTE | 2024-08-29 11:06 | P.HPHOSP_ITS ---
History of Present Illness Date of Service: 08/29/24 Attending physician on admission: Juan Brewster Chief Complaint: nausea, vomiting, abd pain Patient is a 33-year-old female with a past medical history significant for alcohol abuse with delirium tremens and seizures admitted here on 06/18/2024 with seizures and hyponatremia requiring intubation for airway protection and extubated on 06/20/2024, who presented to the emergency department today with nausea, vomiting, generalized abdominal pain and flu-like symptoms. She has been vomiting frequently, however, improved since arriving here. She is also hydrating significantly at home due to her nausea and vomiting. She reports that she drinks a few days a week and the amount varies. She is a poor historian. She is also complaining of chest pain. It is mostly in the epigastric region radiating upwards. She takes sucralfate and omeprazole. She complains of sweats and chills, severe anxiety and moderate agitation but denies any visual or auditory hallucinations. Review of Systems 2 Constitutional: Constitutional: Reports body ache(s), Reports chills, Reports excessive sweating and Reports headache(s) Eyes: Eyes: Denies change in vision ENT: Reports headache(s), Denies nasal congestion, Denies nasal discharge and Denies post nasal drip Cardiovascular: Cardiovascular: Denies syncope, Reports rapid heart rate, Denies lightheadedness and Reports dyspnea Respiratory: Respiratory: Denies cough and Reports dyspnea Gastrointestinal: Gastrointestinal: Denies constipation, Denies diarrhea, Reports nausea and Reports vomiting (Liquids) Genitourinary: Genitourinary: Denies dysuria and Denies urinary urgency Musculoskeletal: Musculoskeletal: Denies myalgias Integumentary/Breasts: Skin/Breast: Denies rash Neurologic: Denies confusion, Denies syncope and Reports headache(s) Psychiatric: Psychiatric: Denies confusion, Denies paranoia, Denies visual hallucinations and Denies tactile hallucinations Endocrine: Endocrine: Reports excessive sweating PMFSH Medical History Acute respiratory failure Acute hypokalemia Acute hyponatremia Alcohol withdrawal Status epilepticus Alcohol use disorder, severe, dependence Withdrawal seizures Depression Alcoholism Functional capacity: independent ambulation Social History (Updated 04/21/21 @ 11:11 by Citlalli Knight DO) Household Members: Significant Other Housing: Unknown / Unable to assess Do you presently have visiting nurse or other home services: No Alcohol intake: current Alcohol intake frequency: 3 or more drinks per day Alcohol type: hard liquor Comment: pt refused bed alarm Patient Tobacco Use Status: Tobacco use Unknown Substance Use Type: Marijuana service: No Meds Allergies Allergy/AdvReac Type Severity Reaction Status Date / Time Iodinated Contrast Media AdvReac Hives Verified 08/29/24 02:35 [Contrast Dye] Active Medications: Current Medications Pharmacy Consult (Consult Rx Etoh Phenob Im/Po) 1 each MISCELLANE ONCE PRN; Protocol PRN Reason: Consult order Phenobarbital (Phenobarbital 15 Mg Tablet) 45 mg PO BID ARTURO; Protocol Stop: 08/31/24 09:01 Phenobarbital (Phenobarbital 15 Mg Tablet) 15 mg PO BID ARTURO; Protocol Stop: 09/02/24 09:01 Phenobarbital (Phenobarbital 15 Mg Tablet) 15 mg PO DAILY ARTURO Stop: 09/03/24 09:01 Phenobarbital Sodium (Phenobarbital Sodium 130 Mg/Ml Vial Im Q3hx2) 137 mg IM Q3H ARTURO; Protocol Stop: 08/29/24 16:01 Home Medications ?Medication ?Instructions ?Recorded ?Confirmed ?Last Taken ?Type hydroxyzine HCl 25 mg tablet 25 - 50 mg PO DAILY PRN anxiety 06/19/24 06/19/24 Unknown History omeprazole 20 mg capsule,delayed 20 mg PO BID 06/19/24 06/19/24 Unknown History release quetiapine 25 mg tablet 25 mg PO TID PRN anxiety 06/19/24 06/19/24 Unknown History quetiapine 50 mg tablet 50 - 100 mg PO BEDTIME 06/19/24 06/19/24 Unknown History sennosides 8.6 mg tablet (senna) 8.6 - 17.2 mg PO BEDTIME PRN 06/19/24 06/19/24 Unknown History constipation sucralfate 1 gram tablet 1 g PO QID 06/19/24 06/19/24 Unknown History Physical Exam 2 Vital Signs and Narrative: Vital Signs: Last Vital Signs Temp 98.1 F 08/29/24 09:33 Pulse 123 H 08/29/24 09:33 Resp 18 08/29/24 09:33 BP 172/103 H 08/29/24 09:33 Pulse Ox 98 08/29/24 09:33 O2 Del Method Room Air 08/29/24 09:33 BMI result Body Mass Index 20.9 General: AOx3, no acute distress, appears uncomfortable Resp: CTA bilaterally CVS: S1, S2, tachycardic GI: +BS, NT, no distention Skin: Warm, diaphoretic on back Neuro: Cranial nerves II-XII grossly intact bilaterally. Motor grossly intact bilaterally Extremities: No edema Psych: Appropriate affect Const: General: No confusion Orientation/consciousness: No confusion Neuro: General: No confusion Results Labs 08/29/24 02:57 08/29/24 02:57 Labs: Laboratory Results - last 24 hr 08/29/24 08/29/24 08/29/24 02:57 03:11 05:03 MCV 85.2 MCH 29.6 MCHC 34.7 RDW 13.2 Plt Count 819 H D MPV 8.2 L Immature Gran % (Auto) 0.3 Neut % (Auto) 79.4 H Lymph % (Auto) 15.2 L [place] % (Auto) 4.4 Eos % (Auto) 0.2 Baso % (Auto) 0.5 Lymph # (Auto) 2.3 [place] # (Auto) 0.7 Eos # (Auto) 0.0 Baso # (Auto) 0.1 Abs Immat Gran (auto) 0.05 H Absolute Neuts (auto) 11.8 H Absolute Nucleated RBC 0.000 Nucleated RBC % (auto) 0.0 Anion Gap 30 H Estim Creat Clear Calc 83.6 Estimated GFR > 60 Random Glucose 179 H Calcium 9.7 D Magnesium 1.9 Total Bilirubin 0.4 AST 69 H ALT 37 H Alkaline Phosphatase 130 H Total Protein 9.1 H Albumin 4.7 Lipase 9 Beta HCG, Quant < 2 Urine Color Yellow Urine Appearance Clear Urine pH 5.0 Ur Specific [place] >= 1.030 H Urine Protein 300 (3+) H Urine Glucose (UA) Negative Urine Ketones 15 Urine Blood Negative Urine Nitrite Negative Ur Leukocyte Esterase Negative Urine RBC 0-2 Urine WBC 0-5 Ur Squamous Epith Cells 6-10 Urine Bacteria 1+ Hyaline Casts 11-20 Urine Opiates Screen Not Detected Ur Buprenorphine Scrn Not Detected Ur Oxycodone Screen Not Detected Urine Methadone Screen Not Detected Urine Fentanyl Screen Not Detected Ur Barbiturates Screen Not Detected Ur Phencyclidine Scrn Not Detected Ur Amphetamines Screen Not Detected U Benzodiazepines Scrn Not Detected Urine Cocaine Screen Not Detected U Marijuana (THC) Screen Not Detected Ethyl Alcohol 370 H* COVID-19 (RACHAEL) Negative COVID-19 Clin Com See Note Influenza Type A (REGINO) Negative Influenza Type B (REGINO) Negative Influenza A & B Note See Note Assessment and Plan (1) Alcohol withdrawal: Status: Acute (2) High anion gap metabolic acidosis: Status: Acute (3) Elevated LFTs: Status: Acute (4) Dehydration: Status: Acute Plan Patient is a 33-year-old female with a past medical history significant for alcohol abuse with delirium tremens and seizures admitted here on 06/18/2024 with seizures and hyponatremia requiring intubation for airway protection and extubated on 06/20/2024, who presented to the emergency department today with nausea, vomiting, generalized abdominal pain and flu-like symptoms. etoh withdrawal - recent hx of intubation 06/18-06/20/24 for alcohol withdrawal seizure and delirium tremens - phenobarb protocol - addiction med consult - famotidine 20 mg IV b.i.d. - seizure precautions - CIWA scale - continue folic acid, thiamine, multivitamin, magnesium - K low, 3.5, given K 20meq - admit to med tele High anion gap metabolic acidosis - secondary to above - IV fluids, LR 150 mL/hr - monitor BMP Chest pain- likely related to hypertension and tachycardia from alcohol withdrawal - EKG without ischemia - Maalox p.r.n. and famotidine b.i.d. - continue omeprazole Abdominal pain - likely secondary to excessive vomiting and alcohol related gastritis - lipase normal - Maalox, famotidine, and omeprazole as above Elevated LFTs - secondary to alcohol abuse Full code VTE prophylaxis: Pneumoboots and Lovenox Patient with high anion gap metabolic acidosis secondary to alcohol withdrawal, nausea and vomiting, with recent admission and intubation for alcohol withdrawal seizure and delirium tremens requiring repeat admission to med tele for monitoring and medical withdrawal from alcohol for at least 2 midnights stay. Quality Stroke Does the patient have a stroke diagnosis?: No VTE Prior VTE?: No VTE Risk Level:: Medical - moderate - high VTE Device Contraindication: N/A - Device Ordered VTE Drug Contraindication: N/A - Med Ordered
--- NOTE | 2024-08-29 11:30 | PC.NURSE ---
retail performance coach/addiction this nurse spoke with the patient about speaking with retail performance coach- pt currently has declined and stated she has a retail performance coach outside of the hospital and I just messed up, I will talk to them when I go home .
[2024-08-29] MEDS: Enoxaparin Sodium 40 MG/0.4 ML SYRINGE SUBCUT (11:37)
[2024-08-29] MEDS: Lactated Ringers 1,000 ML 150 ML IVCONT ×3 (11:37→23:17)
[2024-08-29] MEDS: Potassium Chloride ER 20 MEQ TAB.ER.PRT PO (11:37)
--- NOTE | 2024-08-29 11:50 | PC.NURSE ---
pt continues to be a&ox3, sinus tach on monitor, pt requesting ativan for increased anxiety, hospitalist was notified of pt request of medication. IVF started per order, pt medicated with potassium per order, pharmacy at bedside doing med req, call mcgovern within reach, will continue plan of care
--- NOTE | 2024-08-29 12:19 | PHA.MEDREC ---
Pharmacy Consult ? Medication Reconciliation Pharmacy has completed the medication reconciliation. Spoke to patient
[2024-08-29] MEDS: PHENobarbitaL sodium 130 MG/ML VIAL IM Q3Hx2 137 MG IM ×2 (12:58→15:51)
[2024-08-29] MEDS: hydrOXYzine HCL 25 MG TABLET PO (12:59)
--- NOTE | 2024-08-29 12:59 | PC.NURSE ---
headache pt requesting tylenol for headache as she continues to have a 5/10 headache, will also notify provider.
[2024-08-29 15:34] LABS: Anion Gap 19 (12-20); Blood Urea Nitrogen 7 mg/dL (9-16); Calcium 8.8 mg/dL (8.4-10.2); Carbon Dioxide 20 mmol/L (22-29); Chloride 104 mmol/L (96-108); Creatinine Clr Calc Pharmacy 93.4; Estimated Glomerular Filt Rate > 60; Glucose Random 153 mg/dL (60-115); Potassium 3.3 mmol/L (3.3-5.1); Sodium 140 mmol/L (135-145)
[2024-08-29] MEDS: Magnesium Oxide 400 MG TABLET PO (15:52)
[2024-08-29] MEDS: Famotidine/PF 20 MG/2 ML VIAL IVPUSH (21:35)
[2024-08-29] MEDS: QUEtiapine Fumarate 50 MG TABLET PO (21:36)
[2024-08-29] MEDS: Topiramate 25 MG TABLET PO (21:36)
[2024-08-29] MEDS: Omeprazole 20 MG CAPSULE.DR PO (21:36)
[2024-08-29] MEDS: PHENobarbitaL 15 MG TABLET 45 MG PO (21:36)
[2024-08-29] MEDS: 0.9 % Sodium Chloride Flush 3 ML SYRINGE IVFLUSH (21:38)
[2024-08-30] MEDS: QUEtiapine Fumarate 25 MG TABLET PO (03:33)
[2024-08-30] MEDS: Acetaminophen 325 MG TABLET 650 MG PO ×2 (03:37→09:30)
[2024-08-30 03:42] VITALS: BP 136/77; PULSE 105; RESP 20; TEMP 37.1; O2SAT 98
[2024-08-30] MEDS: Lactated Ringers 1,000 ML 150 ML IVCONT ×2 (05:54→13:29)
[2024-08-30 07:17] VITALS: BP 110/69; PULSE 95; RESP 17; TEMP 36.6; O2SAT 99
[2024-08-30 07:20] LABS: MANUAL DIFF FLAG NO
[2024-08-30 07:33] LABS: Basophils Percent Auto 0.4 % (0-2); Eosinophils Absolute Auto 0.1 X10*3/uL (0.0-0.4); Eosinophils Percent Auto 0.7 % (0-4); Hematocrit 30.6 % (37.0-47.0); Hemoglobin 10.2 g/dl (12.0-16.0); Imm Gran Abs Auto 0.02 X10*3/uL (0.00-0.03); Imm Gran Pct Auto 0.3 % (0.0-0.4); Lymphocytes Absolute Auto 2.7 X10*3/uL (1.2-4.9); Lymphocytes Percent Auto 37.2 % (20-40); Mean Corpuscular HGB Conc 33.3 g/dl (31.0-35.0); Mean Corpuscular Hemoglobin 29.6 pg (27.0-33.0); Mean Corpuscular Volume 88.7 fL (80.0-98.0); Mean Platelet Volume 9.3 fL (9.4-12.3); Monocytes Absolute Auto 0.4 X10*3/uL (0.1-1.2); Monocytes Percent Auto 5.6 % (2-11); Neutrophils Percent Auto 55.8 % (45-73); Platelet Count 366 X10*3/uL (160-400); Red Blood Count 3.45 X10*6/uL (4.20-5.50); Red Cell Distribution Width 12.9 % (11.0-16.0); White Blood Count 7.1 X10*3/uL (4.8-10.8)
[2024-08-30 07:38] LABS: Anion Gap 10 (12-20); Blood Urea Nitrogen 4 mg/dL (9-16); Calcium 8.6 mg/dL (8.4-10.2); Carbon Dioxide 23 mmol/L (22-29); Chloride 103 mmol/L (96-108); Creatinine Clr Calc Pharmacy 126.2; Estimated Glomerular Filt Rate > 60; Glucose Random 91 mg/dL (60-115); Potassium 3.1 mmol/L (3.3-5.1); Sodium 133 mmol/L (135-145)
[2024-08-30] MEDS: Multivitamin TABLET 1 TAB PO (09:29)
[2024-08-30] MEDS: Magnesium Oxide 400 MG TABLET PO (09:29)
[2024-08-30] MEDS: PHENobarbitaL 15 MG TABLET 45 MG PO (09:29)
[2024-08-30] MEDS: Omeprazole 20 MG CAPSULE.DR PO (09:29)
[2024-08-30] MEDS: Potassium Chloride ER 20 MEQ TAB.ER.PRT 40 MEQ PO (09:29)
[2024-08-30] MEDS: Sertraline HCL 100 MG TABLET PO (09:30)
[2024-08-30] MEDS: Folic Acid 1 MG TABLET PO (09:30)
[2024-08-30] MEDS: Thiamine HCL 100 MG TABLET PO (09:30)
[2024-08-30] MEDS: 0.9 % Sodium Chloride Flush 3 ML SYRINGE IVFLUSH (09:30)
[2024-08-30] MEDS: hydrOXYzine HCL 25 MG TABLET PO ×2 (09:30→13:29)
[2024-08-30] MEDS: Famotidine/PF 20 MG/2 ML VIAL IVPUSH (09:31)
--- NOTE | 2024-08-30 09:41 | MHC.CM.PN ---
EMR REVIEWED, PT ADMITTED W/ETOH WITHDRAWAL/HX OF SEIZURES, CM MET W/PT WHO REPORTS SHE IS INDEP W/ALL CARE, DENIES USE OF DME, HAS A RECOVERY COAH FOR ETOH AND REPORTS SHE RECEIVES MONTHLY VIVITROL INJECTIONS, PT IS FOCUSED ON DISCHARGE SOON POSSIBLE D/T TOMORROW BEING HALLOWEEN. PT VERIFIES PCP ON FILE AND REPORTS SHE HAS A HCP THAT IS HER Yonis Dugan, NUMBER ON FILE AND COPY REQUESTED.
[2024-08-30] MEDS: Enoxaparin Sodium 40 MG/0.4 ML SYRINGE SUBCUT (09:48)
[2024-08-30] MEDS: Ibuprofen 600 MG TABLET PO (09:48)
--- NOTE | 2024-08-30 11:19 | MHC.RECOVRN ---
AUDIT-C Brief Intervention Pt had positive screen for unhealthy alcohol use on admission, subsequently met with t/w to discuss alcohol use and recovery supports/options. This jingle writer met with patient to discuss current alcohol use and concerns related to increased risk of alcohol related problems.? Pts boyfriend present for discussion with patients permission. Pt reports 6 nips from Saturday 08/25- Monday 08/27. Pt reports prior to Wednesday last alcohol use was a while ago. Unable to specify amount of time. Discussed how alcohol use has impacted health, including negative impact on overall physical health and wellbeing. Withdrawal History: reports hx seizures Treatment History: ATS/CSS, outpatient [facility] Supports:?boyfriend Discussed risk reduction strategies including drinking below the recommended limit. Provided pt with written resources including information on inpatient and outpatient treatment, [facility], harm reduction, and recovery coaching. Pt currently has a men's golf coach who she finds helpful. Reports she had an appt with Aris Angel to receive Vivitrol (not currently on it) and will reschedule appt. Pt also made aware that she can present as a walk in to the [facility]. Pt plans to follow up with Aris Angel and men's golf coach. Pt provided with t/w contact information if questions or concerns arise. Denies other questions or concerns at this time.?
[2024-08-30 11:30] VITALS: BP 110/65; PULSE 89; RESP 18; TEMP 36.1; O2SAT 98
[2024-08-30] MEDS: Butalb/Acetamin/Caff 50/325/40 TABLET 1 TAB PO (13:28)
--- NOTE | 2024-08-30 13:47 | HO.PM.IMPN ---
Subjective Subjective Date of Service: 08/30/24 Interval History: Admitted for nausea, vomiting, abdominal pain, chills and sweating and diagnosed to have alcohol withdrawal. This morning patient complaining of headache, denies nausea, no further episodes of vomiting or abdominal pain, tolerating diet, no other acute events overnight. Denies tremors, no hallucination, no sweating. Review of Systems All other system reviewed and are negative Physical Exam Vital Signs: Vital Signs: Last Vital Signs Temp 97 F 08/30/24 11:30 Pulse 89 08/30/24 11:30 Resp 18 08/30/24 11:30 BP 110/65 08/30/24 11:30 Pulse Ox 98 08/30/24 11:30 O2 Del Method Room Air 08/30/24 11:30 BMI result Body Mass Index 20.9 Const: Other: General: AO X 3, no acute distress No JVD Resp: CTA bilateral CVS: S1,S2,RRR GI: +BS, NT, no distention Skin: No rash Neuro: motor grossly intact, no tremors Psych: appropriate affect Objective Data Active Medications Acetaminophen (Acetaminophen 325 Mg Tablet) 650 mg PO Q6H PRN PRN Reason: Pain, Mild (Pain Scale 1-3), fever or headache Last Admin: 08/30/24 09:30 Dose: 650 mg Documented By: JESS Al Hydroxide/Mg Hydroxide (Magnesium Hydrox/Alum Hydrox 30 Ml Oral.Susp) 15 ml PO QID PRN PRN Reason: Heartburn Calcium Carbonate (Calcium Carbonate 750 Mg Tab.Chew) 750 mg PO Q4H PRN PRN Reason: Heartburn Enoxaparin Sodium (Enoxaparin Sodium 40 Mg/0.4 Ml Syringe) 40 mg SUBCUT Q24H [facility] Last Admin: 08/30/24 09:48 Dose: 40 mg Documented By: RIOTAMIE Famotidine (Famotidine/Pf 20 Mg/2 Ml Vial) 20 mg IVPUSH BID [facility] Last Admin: 08/30/24 09:31 Dose: 20 mg Documented By: JESS Folic Acid (Folic Acid 1 Mg Tablet) 1 mg PO DAILY [facility] Last Admin: 08/30/24 09:30 Dose: 1 mg Documented By: JESS Hydroxyzine HCl (Hydroxyzine Hcl 25 Mg Tablet) 25 mg PO Q6H PRN PRN Reason: Anxiety Last Admin: 08/30/24 13:29 Dose: 25 mg Documented By: CAMILLE Lactated Ringer's (Lr) 1,000 mls @ 150 mls/hr IVCONT .Q6H40M [facility] Last Admin: 08/30/24 13:29 Dose: 150 mls/hr Documented By: CAMILLE Ibuprofen (Ibuprofen 600 Mg Tablet) 600 mg PO Q6H PRN PRN Reason: Pain, Moderate(Pain Scale 4-6) Last Admin: 08/30/24 09:48 Dose: 600 mg Documented By: CAMILLE Magnesium Hydroxide (Milk Of Magnesia 30 Ml Oral.Susp) 30 ml PO DAILY PRN PRN Reason: Constipation Magnesium Oxide (Magnesium Oxide 400 Mg Tablet) 400 mg PO DAILY [facility] Last Admin: 08/30/24 09:29 Dose: 400 mg Documented By: JESS Melatonin (Melatonin 3 Mg Tablet) 6 mg PO BEDTIME PRN PRN Reason: Insomnia Multivitamins/Vitamin C (Multivitamin Tablet) 1 tab PO DAILY [facility] Last Admin: 08/30/24 09:29 Dose: 1 tab Documented By: JESS Omeprazole (Omeprazole 20 Mg Capsule.Dr) 20 mg PO BID [facility] Last Admin: 08/30/24 09:29 Dose: 20 mg Documented By: JESS Ondansetron HCl (Ondansetron Hcl 4 Mg/2 Ml Vial) 4 mg IVPUSH Q8H PRN PRN Reason: Nausea and Vomiting Oxycodone HCl (Oxycodone Hcl Immed Release 5 Mg Tablet) 5 mg PO Q4H PRN PRN Reason: Pain, Severe (Pain Scale 7-10) Pharmacy Consult (Consult Rx Etoh Phenob Im/Po) 1 each MISCELLANE ONCE PRN; Protocol PRN Reason: Consult order Phenobarbital (Phenobarbital 15 Mg Tablet) 45 mg PO BID [facility]; Protocol Stop: 08/31/24 09:01 Last Admin: 08/30/24 09:29 Dose: 45 mg Documented By: JESS Phenobarbital (Phenobarbital 15 Mg Tablet) 15 mg PO BID [facility]; Protocol Stop: 09/02/24 09:01 Phenobarbital (Phenobarbital 15 Mg Tablet) 15 mg PO DAILY [facility] Stop: 09/03/24 09:01 Quetiapine Fumarate (Quetiapine Fumarate 25 Mg Tablet) 25 mg PO TID PRN PRN Reason: anxiety Last Admin: 08/30/24 03:33 Dose: 25 mg Documented By: JS Quetiapine Fumarate (Quetiapine Fumarate 50 Mg Tablet) 50 mg PO BEDTIME [facility] Last Admin: 08/29/24 21:36 Dose: 50 mg Documented By: LAKSHMI Sertraline HCl (Sertraline Hcl 100 Mg Tablet) 100 mg PO DAILY [facility] Last Admin: 08/30/24 09:30 Dose: 100 mg Documented By: JESS Sodium Chloride (0.9 % Sodium Chloride Flush 3 Ml Syringe) 3 ml IVFLUSH QSHIFT [facility] Last Admin: 08/30/24 09:30 Dose: 3 ml Documented By: JESS Thiamine HCl (Thiamine Hcl 100 Mg Tablet) 100 mg PO DAILY [facility] Last Admin: 08/30/24 09:30 Dose: 100 mg Documented By: JESS Topiramate (Topiramate 25 Mg Tablet) 25 mg PO BEDTIME [facility] Last Admin: 08/29/24 21:36 Dose: 25 mg Documented By: LAKSHMI Labs 08/30/24 06:49 08/30/24 06:49 Labs: Laboratory Results - last 24 hr 08/29/24 08/29/24 08/30/24 15:01 15:06 06:49 MCV 88.7 MCH 29.6 MCHC 33.3 RDW 12.9 Plt Count 366 D MPV 9.3 L Immature Gran % (Auto) 0.3 Neut % (Auto) 55.8 Lymph % (Auto) 37.2 [place] % (Auto) 5.6 Eos % (Auto) 0.7 Baso % (Auto) 0.4 Lymph # (Auto) 2.7 [place] # (Auto) 0.4 Eos # (Auto) 0.1 Baso # (Auto) 0.0 Abs Immat Gran (auto) 0.02 Absolute Neuts (auto) 4.0 Absolute Nucleated RBC 0.000 Nucleated RBC % (auto) 0.0 Hold Purple Top SEE NOTE Anion Gap 19 10 L Estim Creat Clear Calc 93.4 126.2 Estimated GFR > 60 > 60 Random Glucose 153 H 91 Calcium 8.8 D 8.6 Assessment and Plan (1) Elevated LFTs: Status: Acute (2) High anion gap metabolic acidosis: Status: Acute (3) Alcohol withdrawal: Status: Acute Plan 33-year-old female with a past medical history significant for alcohol abuse with delirium tremens and seizures admitted here on 06/18/2024 with seizures and hyponatremia requiring intubation for airway protection and extubated on 06/20/2024, who presented to the emergency department today with nausea, vomiting, generalized abdominal pain and flu-like symptoms. 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 - abdominal pain resolved will DC famotidine 20 mg IV b.i.d. - seizure precautions - CIWA scale - continue folic acid, thiamine, multivitamin, magnesium Headache not relieved with Motrin/Tylenol will give Fioricet x1 High anion gap metabolic acidosis - secondary to above resolved will DC IV fluids Hypokalemia will replete and follow labs Chest pain- resolved was likely musculoskeletal due to recurrent vomiting - EKG without ischemia, continue Prilosec and Maalox p.r.n. Abdominal pain - resolved, was likely secondary to gastritis, continue Prilosec, strongly recommend to abstain from alcohol. Elevated LFTs likely alcoholic hepatitis- follow LFTs, abstain from alcohol Full code VTE prophylaxis: Pneumoboots and Lovenox In my clinical judgment patient requires continued inpatient hospitalization for alcohol abuse and withdrawal on phenobarb protocol /seizure precaution with history of alcohol withdrawal seizures in the past Quality Stroke Does the patient have a stroke diagnosis?: No VTE Prior VTE?: No VTE Risk Level:: Medical - moderate - high VTE Device Contraindication: N/A - Device Ordered VTE Drug Contraindication: N/A - Med Ordered
--- NOTE | 2024-08-30 15:37 | PM.DS ---
DS: Providers Provider Date of Service: 08/30/24 Date of admission: 08/29/24 11:13 Date of discharge: 08/30/24 Primary care physician: Rupert Flores MD Consults: 08/29/24 11:27 Addiction Medicine Routine Consulting Provider: Addiction Covering Reason for consultation: etoh withdrawal Has provider been notified: No DS: Diagnosis Discharge Diagnosis (1) Elevated LFTs: Status: Acute (2) High anion gap metabolic acidosis: Status: Acute (3) Alcohol withdrawal: Status: Acute DS: Summary Hospital Course Hospital Course: History of presenting illness: Date of Service: 08/29/24 Attending physician on admission: Juan Brewster Chief Complaint: nausea, vomiting, abd pain Patient is a 33-year-old female with a past medical history significant for alcohol abuse with delirium tremens and seizures admitted here on 06/18/2024 with seizures and hyponatremia requiring intubation for airway protection and extubated on 06/20/2024, who presented to the emergency department today with nausea, vomiting, generalized abdominal pain and flu-like symptoms. She has been vomiting frequently, however, improved since arriving here. She is also hydrating significantly at home due to her nausea and vomiting. She reports that she drinks a few days a week and the amount varies. She is a poor historian. She is also complaining of chest pain. It is mostly in the epigastric region radiating upwards. She takes sucralfate and omeprazole. She complains of sweats and chills, severe anxiety and moderate agitation but denies any visual or auditory hallucinations. Hospital course 33-year-old female with a past medical history significant for alcohol abuse with delirium tremens and seizures admitted here on 06/18/2024 with seizures and hyponatremia requiring intubation for airway protection and extubated on 06/20/2024, who presented to the emergency department today with nausea, vomiting, generalized abdominal pain and flu-like symptoms and admitted for. etoh use disorder/ withdrawal patient was recently admitted to [facility] for alcohol withdrawal seizure requiring intubation from 06/18-06/20/24 presented to [place] [facility] with nausea vomiting abdominal pain, chest discomfort noted to have alcohol level of 370 treated with phenobarb protocol, IV fluids, IV famotidine symptoms of nausea vomiting abdominal pain resolved, patient complain of tiredness fatigue and headache was treated with Fioricet, seen by addiction med the discuss risk reduction strategies and written resources provided including information on inpatient and outpatient treatment, 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 Headache treated with Tylenol/Motrin Fioricet likely due to alcohol withdrawal recommend to continue analgesics High anion gap metabolic acidosis - secondary to alcohol abuse resolved with fluids Hypokalemia repleted recommend outpatient follow-up with primary care Elevated LFTs likely alcoholic hepatitis- recommend to abstain from alcohol and outpatient follow-up with PCP Time Attestation Discharge Coordination Time (in mins): 36 Quality: Safe Use of Opioids Does Pt have an Active Cancer Diagnosis on the Problem List?: No Quality: Stroke Does the patient have a stroke diagnosis?: No Physical Exam Vital Signs: Vital Signs: Last Vital Signs Temp 97 F 08/30/24 11:30 Pulse 89 08/30/24 11:30 Resp 18 08/30/24 11:30 BP 110/65 08/30/24 11:30 Pulse Ox 98 08/30/24 11:30 O2 Del Method Room Air 08/30/24 11:30 BMI result Body Mass Index 20.9 Const: Other: General: AO X 3, no acute distress No JVD Resp: CTA bilateral CVS: S1,S2,RRR GI: +BS, NT, no distention Skin: No rash Neuro: motor grossly intact, no tremors Psych: appropriate affect DS: Data Data Completed and Pending Completed studies during hospitalization [Text1]: Procedures Detoxification Services for Substance Abuse Treatment (06/18/24) Insertion of Endotracheal Airway into Trachea, Via Natural or Artificial Opening (06/18/24) Insertion of Infusion Device into Superior Vena Cava, Percutaneous Approach (06/18/24) Respiratory Ventilation, 24-96 Consecutive Hours (06/18/24) Ultrasonography of Superior Vena Cava, Guidance (06/18/24) Labs on day of discharge: Laboratory Results - last 24 hr 08/30/24 06:49 WBC 7.1 RBC 3.45 L D Hgb 10.2 L D Hct 30.6 L D MCV 88.7 MCH 29.6 MCHC 33.3 RDW 12.9 Plt Count 366 D MPV 9.3 L Immature Gran % (Auto) 0.3 Neut % (Auto) 55.8 Lymph % (Auto) 37.2 [place] % (Auto) 5.6 Eos % (Auto) 0.7 Baso % (Auto) 0.4 Lymph # (Auto) 2.7 [place] # (Auto) 0.4 Eos # (Auto) 0.1 Baso # (Auto) 0.0 Abs Immat Gran (auto) 0.02 Absolute Neuts (auto) 4.0 Absolute Nucleated RBC 0.000 Nucleated RBC % (auto) 0.0 Sodium 133 L Potassium 3.1 L Chloride 103 Carbon Dioxide 23 Anion Gap 10 L BUN 4 L Creatinine 0.57 Estim Creat Clear Calc 126.2 Estimated GFR > 60 Random Glucose 91 Calcium 8.6 Discharge Plan Discharge Patient Disposition: Left Against Medical Advice Discharge Diagnosis: Alcohol abuse/withdrawal Referrals: Rupert Flores MD [Primary Care Provider] - 1 Week Discharge Medications: Continued multivitamin [Daily-Laura] Tablet 1 tab PO DAILY Qty: 30 0RF folic acid 1 mg Tablet 1 mg PO DAILY Qty: 30 0RF thiamine mononitrate (vit B1) 100 mg Tablet 100 mg PO DAILY Qty: 30 0RF quetiapine 25 mg tablet 25 mg PO TID PRN (Reason: anxiety) sucralfate 1 gram tablet 1 g PO QID omeprazole 20 mg capsule,delayed release(DR/EC) 20 mg PO BID hydroxyzine HCl 25 mg tablet 50 mg PO BID quetiapine 50 mg tablet 50 - 100 mg PO BEDTIME sertraline 100 mg tablet 100 mg PO DAILY topiramate 25 mg tablet 25 mg PO BEDTIME hydroxyzine HCl 25 mg tablet 25 mg PO DAILY PRN (Reason: Anxiety) magnesium oxide 400 mg (241.3 mg magnesium) tablet 400 mg PO DAILY Vivitrol 380 mg suspension,extended rel recon 380 mg IM Q4W Qty: 1 5RF Discharge Orders: Discharge Order (Routine); Ordered 08/30/24 Ordered By: Juan Brewster Diet: Advance to usual diet Activity on Discharge: As tolerated Print Language: Kinyarwanda Activity Restrictions/Additional Instructions: Please follow-up with your primary care physician tomorrow. If you have any worsening or new symptoms, please return to the emergency room or call 911 Care Plan Goals: Alcohol use disorder/withdrawal patient aware of risk of seizures/delirium tremens due to alcohol withdrawal has been recommended to returned to ED if noted to have excessive shakiness ,sweats ,tachycardia, seizure-like activity. Health Concerns: Complete abstinence from alcohol/continue all home medication Plan of Treatment: Outpatient follow-up with primary care physician Call [facility] and follow-up with livestock judging coach Assessment: As above Patient Instructions: Dehydration (ED), Alcohol Intoxication (ED)
== END 2024-08-30 15:00 | disposition left against medical advice (07) | DRG 770 ==
LOC: HO.ED 10:03 → HO.EDOVER 11:24 → HO.IMC 13:23
PROVIDERS: Admitting Provider Physician Assistant; Emergency Provider Emergency Medicine; PCP Family Medicine; Visit Provider Hospitalist
DX: F10.239 Alcohol dependence with withdrawal, unspecified (principal); E87.20 Acidosis, unspecified; K29.20 Alcoholic gastritis without bleeding; E87.6 Hypokalemia; F10.229 Alcohol dependence with intoxication, unspecified; I10 Essential (primary) hypertension; Y90.8 Blood alcohol level of 240 mg/100 ml or more; Z20.822 Contact with and (suspected) exposure to COVID-19; Z79.899 Other long term (current) drug therapy
CPT/HCPCS: 36415; 80048; 80053; 80307; 81001; 83690; 83735; 84702; 85025; 87502; 87635; 93005; 99285; J1650; J1885; J2060; J2405; J2560; J7120

== ENCOUNTER → 2024-08-29 02:39 | Outpatient (BNV) | payer OTHER, SELFPAY | PROVIDERS: Admitting Provider Physician Assistant; Emergency Provider Emergency Medicine; PCP Family Medicine; Visit Provider Internal Medicine | DX: R00.0 Tachycardia, unspecified (principal); R94.31 Abnormal electrocardiogram [ECG] [EKG]; R11.2 Nausea with vomiting, unspecified | CPT/HCPCS: 93010 ==

== ENCOUNTER → 2024-08-29 11:13 | Outpatient (BNV) | payer OTHER, SELFPAY | PROVIDERS: Admitting Provider Physician Assistant; Emergency Provider Emergency Medicine; PCP Family Medicine; Visit Provider Physician Assistant | DX: R79.89 Other specified abnormal findings of blood chemistry (principal); E87.29 Other acidosis; F10.930 Alcohol use, unspecified with withdrawal, uncomplicated | CPT/HCPCS: 99239; 99499 ==

== ENCOUNTER 2024-09-09 08:04 | Emergency (ER) | payer OTHER, SELFPAY ==
[2024-09-09 08:18] VITALS: BP 130/76; BP 154/103; PULSE 114; PULSE 127; RESP 16; TEMP 36.7; O2SAT 97; O2SAT 99; BMI 20.3
--- NOTE | 2024-09-09 08:27 | PC.NURSE ---
patient changed into hospital attire, patient states she drank 5 nips yesterday and has had increased stress due to problems with her sister. patient boyfriend at bedside who is good advocate for patient. patient medications and phone taken to car by boyfriend. patient belongings locked up by security on shelf 3 in [facility]. patient denies SI/HI
[2024-09-09 08:33] LABS: MANUAL DIFF FLAG NO
[2024-09-09 08:38] LABS: Basophils Absolute Auto 0.1 X10*3/uL (0.0-0.2); Basophils Percent Auto 0.6 % (0-2); Eosinophils Percent Auto 0.1 % (0-4); Hematocrit 43.8 % (37.0-47.0); Hemoglobin 15.2 g/dl (12.0-16.0); Imm Gran Abs Auto 0.02 X10*3/uL (0.00-0.03); Imm Gran Pct Auto 0.2 % (0.0-0.4); Lymphocytes Absolute Auto 4.1 X10*3/uL (1.2-4.9); Lymphocytes Percent Auto 43.9 % (20-40); Mean Corpuscular HGB Conc 34.7 g/dl (31.0-35.0); Mean Corpuscular Hemoglobin 29.2 pg (27.0-33.0); Mean Corpuscular Volume 84.1 fL (80.0-98.0); Mean Platelet Volume 8.5 fL (9.4-12.3); Monocytes Absolute Auto 0.7 X10*3/uL (0.1-1.2); Monocytes Percent Auto 7.8 % (2-11); Neutrophils Absolute Auto 4.4 x10*3/uL (2.0-8.3); Neutrophils Percent Auto 47.4 % (45-73); Platelet Count 449 X10*3/uL (160-400); Red Blood Count 5.21 X10*6/uL (4.20-5.50); Red Cell Distribution Width 13.1 % (11.0-16.0); White Blood Count 9.2 X10*3/uL (4.8-10.8)
[2024-09-09 08:52] LABS: Alanine Aminotransferase 31 U/L (0-31); Albumin Level 4.4 g/dL (3.5-5.0); Alkaline Phosphatase 120 U/L (39-117); Anion Gap 22 (12-20); Aspartate Amino Transferase 48 U/L (5-31); Bilirubin Total 0.3 mg/dL (0.0-1.0); Blood Urea Nitrogen 11 mg/dL (9-16); Calcium 9.4 mg/dL (8.4-10.2); Carbon Dioxide 22 mmol/L (22-29); Chloride 103 mmol/L (96-108); Creatinine Clr Calc Pharmacy 89.5; Estimated Glomerular Filt Rate > 60; Ethanol 476 mg/dL; Glucose Random 123 mg/dL (60-115); Lipase 10 U/L (8-78); Magnesium 2.1 mg/dL (1.6-2.6); Potassium 3.4 mmol/L (3.3-5.1); Sodium 144 mmol/L (135-145); Total Protein 8.6 g/dL (6.5-8.0)
--- NOTE | 2024-09-09 08:54 | ED.GENADULT ---
HPI - General Adult General Chief complaint: Psychiatric Symptoms Stated complaint: PANIC ATTACK Time Seen by Provider: 09/09/24 08:06 Source: patient and EMS Mode of arrival: EMS Limitations: no limitations History of Present Illness ED Provider: RAFAEL Palacios HPI narrative: 33-year-old female presents with anxiety, panic, and concerns that she may be going into alcohol withdrawal. Patient reports she drinks 3 to 4 times a week, typically drinks 5 nips, last drink was yesterday afternoon. She also reports she has medicine she typically takes daily for anxiety she has not taken this medicine. She reports in the past she has been intubated for delirium tremens with status epilepticus and she is afraid that this may happen again. She tells me she has periods where she will drink heavily, stopped drinking abruptly and then start chugging water. She denies suicidal and homicidal ideation. Denies hallucinations. Tells me she feels like her heart is racing and she feels extremely anxious. Denies chest pain, shortness of breath, nausea, vomiting, vision changes, dizziness, weakness, headaches. Related Data Home Medications ?Medication ?Instructions ?Recorded ?Confirmed hydroxyzine HCl 25 mg tablet 50 mg PO BID anxiety 06/19/24 08/29/24 omeprazole 20 mg capsule,delayed 20 mg PO BID 06/19/24 08/29/24 release quetiapine 25 mg tablet 25 mg PO TID PRN anxiety 06/19/24 08/29/24 quetiapine 50 mg tablet 50 - 100 mg PO BEDTIME 06/19/24 08/29/24 sucralfate 1 gram tablet 1 g PO QID 06/19/24 08/29/24 hydroxyzine HCl 25 mg tablet 25 mg PO DAILY PRN Anxiety 08/29/24 08/29/24 magnesium oxide 400 mg (241.3 mg 400 mg PO DAILY 08/29/24 08/29/24 magnesium) tablet sertraline 100 mg tablet 100 mg PO DAILY 08/29/24 08/29/24 topiramate 25 mg tablet 25 mg PO BEDTIME 08/29/24 08/29/24 Previous Rx's ?Medication ?Instructions ?Recorded folic acid 1 mg tablet 1 mg PO DAILY #30 tabs 05/24/23 multivitamin (Daily-Laura tablet) 1 tab PO DAILY #30 tabs 05/24/23 thiamine mononitrate (vit B1) 100 100 mg PO DAILY #30 tabs 05/24/23 mg tablet naltrexone microspheres 380 mg 380 mg IM Q4W #1 ea 05/31/23 intramuscular suspension,extended release (Vivitrol) Allergies Allergy/AdvReac Type Severity Reaction Status Date / Time Iodinated Contrast Media AdvReac Hives Verified 09/09/24 08:21 [Contrast Dye] Review of Systems Review of Systems: Yes all other systems are reviewed and are negative [facility] Past Medical History Attestation statement: The following information was validated with the patient. Source: old records reviewed and nursing notes reviewed Medical History Acute respiratory failure Acute hypokalemia Acute hyponatremia Alcohol withdrawal Status epilepticus Alcohol use disorder, severe, dependence Withdrawal seizures Depression Alcoholism Social History Social History Household Members: Spouse and Family Household Members Other:: bf, mom Housing: House Do you presently have visiting nurse or other home services: No Alcohol intake: current Alcohol intake frequency: 3 or more drinks per day Alcohol type: hard liquor Comment: pt refused bed alarm Patient Tobacco Use Status: Tobacco use Unknown Smoked in Last 30 Days: No e-Cigarette/Vaping Use: Currently Using Use of substances other than those prescribed or required for medical reasons: No Substance Use Type: Marijuana Advance Directives: No Advance Directives Information Provided: No Do you have a plan to hurt others: No Plan service: No Physical Exam ED Vital Signs: Vital Signs - 24 hr 09/09/24 08:18 09/09/24 09:15 09/09/24 10:37 Temperature 98.1 F 97.9 F Pulse Rate 127 H 113 H 114 H Respiratory Rate 16 20 18 Blood Pressure 154/103 H 136/94 H 127/85 Pulse Oximetry 97 92 97 Oxygen Delivery Method Room Air Room Air Room Air BMI result Body Mass Index 20.3 Patient tachycardic and hypertensive Appearance: Alert.? Oriented X3.? No acute distress.? Patient appears anxious. Head: Normocephalic, atraumatic, no step-offs or deformities Eyes: Pupils equal, round and reactive to light.? Neck: Normal inspection.? Neck supple.? CVS: Rapid rate normal rhythm likely sinus tachycardia Pulses normal.? Respiratory: No respiratory distress.? Breath sounds normal.? Abdomen: Soft and nontender.? Skin: Skin warm and dry.? Normal skin color.? Normal skin turgor.? Extremities: No lower extremity edema.? No calf ttp. 5/5 strength to bilateral upper and lower extremities Back: No midline tenderness, no C-spine tenderness, full range of motion, no CVA tenderness bilaterally Neuro: Oriented X 3.? No motor deficit.? No sensory deficit. CN 2-12 intact Course Reevaluation(s) Reevaluation #1: CBC unremarkable. Slight bump in hemoglobin and hematocrit likely hemoconcentration from poor p.o. intake/dehydration. Chemistry with anion gap likely secondary to alcohol use. No other findings requiring acute intervention. Ethanol 476 . U tox pending. This time patient to be placed into physician observation will place her on seizure precautions as well as CIWA protocol will order Ativan 2 mg p.o. Q 4 hours as needed to prevent withdrawal. Patient resting comfortably sleeping at this time. She is not suicidal not homicidal. Will continue to monitor Time: 12:12 Medications Administered Discontinued Medications Generic Name Dose Route Start Last Admin Trade Name Hermann PRN Reason Stop Dose Admin Acetaminophen 650 mg 09/09/24 11:07 09/09/24 11:15 Acetaminophen 325 Mg Tablet PO 09/09/24 11:08 650 mg ONCE ONE Administration Lactated Ringer's 1,000 mls @ 999 mls/hr 09/09/24 09:15 09/09/24 10:38 Lr IV 09/09/24 10:15 Infused .Q1H1M ARTURO Infusion Lorazepam 2 mg 09/09/24 08:48 09/09/24 08:57 Lorazepam 2 Mg/Ml Vial IVPUSH 09/09/24 08:49 2 mg ONCE ONE Administration Lorazepam 2 mg 09/09/24 09:30 09/09/24 11:14 Lorazepam 2 Mg/Ml Vial IVPUSH 09/09/24 09:31 2 mg ONCE ONE Administration Ondansetron HCl 4 mg 09/09/24 08:48 09/09/24 08:57 Ondansetron Hcl 4 Mg/2 Ml Vial IVPUSH 09/09/24 08:49 4 mg ONCE ONE Administration Medical Decision Making Medical Decision Making [facility] Narrative: 0810 33 year old female presents w/ panic concerns that she may go into alcohol withdrawal. Physical exam patient tachycardic, tachypneic, anxious appearing. History and physical exam concerning for anxiety and panic with possible alcohol withdrawal. Will look out for signs of alcohol withdrawal seizure as patient has history of this. Will rule out metabolic derangements and polysubstance abuse. Plan labs, urine, CIWA Differential Diagnosis Differential Diagnoses: The differential diagnosis associated with the presentation includes (History and physical exam concerning for anxiety and panic with possible alcohol withdrawal. Will look out for signs of alcohol withdrawal seizure as patient has history of this. Will rule out metabolic derangements and polysubstance abuse.) Admission/Observation Consideration of admission/observation: Escalation of care including admission/observation considered Lab Data MDM Lab Attestation statement: I reviewed the patient's lab results. 09/09/24 08:29 09/09/24 08:29 Labs: Lab Results 09/09/24 Range/Units 08:29 WBC 9.2 (4.8-10.8) X10*3/uL RBC 5.21 D (4.20-5.50) X10*6/uL Hgb 15.2 D (12.0-16.0) g/dl Hct 43.8 D (37.0-47.0) % MCV 84.1 (80.0-98.0) fL MCH 29.2 (27.0-33.0) pg MCHC 34.7 (31.0-35.0) g/dl RDW 13.1 (11.0-16.0) % Plt Count 449 H (160-400) X10*3/uL MPV 8.5 L (9.4-12.3) fL Immature Gran % (Auto) 0.2 (0.0-0.4) % Neut % (Auto) 47.4 (45-73) % Lymph % (Auto) 43.9 H (20-40) % [place] % (Auto) 7.8 (2-11) % Eos % (Auto) 0.1 (0-4) % Baso % (Auto) 0.6 (0-2) % Lymph # (Auto) 4.1 (1.2-4.9) X10*3/uL [place] # (Auto) 0.7 (0.1-1.2) X10*3/uL Eos # (Auto) 0.0 (0.0-0.4) X10*3/uL Baso # (Auto) 0.1 (0.0-0.2) X10*3/uL Abs Immat Gran (auto) 0.02 (0.00-0.03) X10*3/uL Absolute Neuts (auto) 4.4 (2.0-8.3) x10*3/uL Absolute Nucleated RBC 0.000 (0.0-0.012) X10*3/uL Nucleated RBC % (auto) 0.0 (0.0-0.2) /100WBC Sodium 144 (135-145) mmol/L Potassium 3.4 (3.3-5.1) mmol/L Chloride 103 (96-108) mmol/L Carbon Dioxide 22 (22-29) mmol/L Anion Gap 22 H (12-20) BUN 11 (9-16) mg/dL Creatinine 0.78 (0.5-1.4) mg/dL Estim Creat Clear Calc 89.5 Estimated GFR > 60 Random Glucose 123 H (60-115) mg/dL Calcium 9.4 D (8.4-10.2) mg/dL Magnesium 2.1 (1.6-2.6) mg/dL Total Bilirubin 0.3 (0.0-1.0) mg/dL AST 48 H (5-31) U/L ALT 31 (0-31) U/L Alkaline Phosphatase 120 H (39-117) U/L Total Protein 8.6 H (6.5-8.0) g/dL Albumin 4.4 (3.5-5.0) g/dL Lipase 10 (8-78) U/L Ethyl Alcohol 476 H* mg/dL Critical Care Time Critical Care Time Critical Care Time: Yes Total Critical Care Time: 35 Attestation: I attest to this time spent taking care of the patient, obtaining history, physical, reviewing labs, imaging, treatment of patients condition +/- specialist/hospitalist consult Discharge Plan Discharge Clinical Impression: Alcohol withdrawal, Acute anxiety Prescriptions: No Action multivitamin [Daily-Laura] Tablet 1 tab PO DAILY Qty: 30 0RF folic acid 1 mg Tablet 1 mg PO DAILY Qty: 30 0RF thiamine mononitrate (vit B1) 100 mg Tablet 100 mg PO DAILY Qty: 30 0RF quetiapine 25 mg tablet 25 mg PO TID PRN (Reason: anxiety) sucralfate 1 gram tablet 1 g PO QID omeprazole 20 mg capsule,delayed release(DR/EC) 20 mg PO BID hydroxyzine HCl 25 mg tablet 50 mg PO BID quetiapine 50 mg tablet 50 - 100 mg PO BEDTIME sertraline 100 mg tablet 100 mg PO DAILY topiramate 25 mg tablet 25 mg PO BEDTIME hydroxyzine HCl 25 mg tablet 25 mg PO DAILY PRN (Reason: Anxiety) magnesium oxide 400 mg (241.3 mg magnesium) tablet 400 mg PO DAILY Vivitrol 380 mg suspension,extended rel recon 380 mg IM Q4W Qty: 1 5RF Print Language: Micronesian
[2024-09-09] MEDS: LORazepam 2 MG/ML VIAL IVPUSH ×2 (08:57→11:14)
[2024-09-09] MEDS: ondansetron HCL 4 MG/2 ML VIAL IVPUSH (08:57)
[2024-09-09 09:15] VITALS: BP 136/94; PULSE 113; RESP 20; O2SAT 92
[2024-09-09] MEDS: Lactated Ringers 1,000 ML 999 ML IV (09:15)
--- NOTE | 2024-09-09 09:21 | PC.NURSE ---
patient wallet placed in patient belongings back on shelf in [place]. wallet in patients slipper. patient has cell phone at bedside
--- NOTE | 2024-09-09 09:50 | PC.NURSE ---
second dose of ativan not given, patient asleep, resp even and unlabored, provider aware
[2024-09-09 10:37] VITALS: BP 127/85; PULSE 114; RESP 18; TEMP 36.6; O2SAT 97
[2024-09-09] MEDS: Acetaminophen 325 MG TABLET 650 MG PO (11:15)
--- NOTE | 2024-09-09 12:09 | PC.NURSE ---
patient asleep, ciwa deferred at this time so patient can rest will attempt when patient awakes again
[2024-09-09] MEDS: LORazepam 1 MG TABLET 2 MG PO (15:14)
[2024-09-09 15:16] VITALS: BP 122/82; PULSE 120; RESP 20; O2SAT 99
--- NOTE | 2024-09-09 16:29 | MHC.EDTECH ---
pt ambulated to and from bathroom with a steady gait and zero assistance. no complaints of dizziness, lightheadedness, sob, etc were made
[2024-09-09 16:33] LABS: Appearance Urine Cloudy; Color Urine Yellow; Glucose Urine UA Negative (Negative); Leukocyte Esterase Urine Negative (Negative); Nitrite Urine Negative (Negative); PH 6.5 (5.0-9.0); Specific Gravity - Urine >= 1.030 (1.005-1.025); UMIC TRIGGER UACC YES; Urine Blood Negative (Negative); Urine Ketones Negative (Negative); Urine Protein 30 (1+) mg/dL (Neg-Trace)
[2024-09-09 16:38] LABS: Bacteria Urine 4+ (None Seen); RBC Urine 0-2 /HPF (0-2); UACC Culture Trigger YES
[2024-09-09 16:41] LABS: Amphetamine Screen Urine Not Detected (Not Detect); Barbiturates, Urine POSITIVE (Not Detect); Benzodiazepines Screen Urine Not Detected (Not Detect); Buprenorphine Scr Not Detected (Not Detect); Cannabinoid Screen Urine Not Detected (Not Detect); Cocaine Screen Urine Not Detected (Not Detect); Fentanyl, urine Not Detected (Not Detect); Methadone Screen, Urine Not Detected (Not Detect); Opiate Screen Urine Not Detected (Not Detect); Oxycodone Screen Urine Not Detected (Not Detect); Phencyclidine Screen Urine Not Detected (Not Detect)
[2024-09-09 18:05] VITALS: BP 123/82; PULSE 108; RESP 16; TEMP 36.7; O2SAT 100
== END 2024-09-09 18:07 | disposition home or self-care (01) ==
PROVIDERS: Physician Assistant; Emergency Provider Emergency Medicine
DX: F10.130 Alcohol abuse with withdrawal, uncomplicated (principal); Y90.8 Blood alcohol level of 240 mg/100 ml or more; F41.9 Anxiety disorder, unspecified; F17.200 Nicotine dependence, unspecified, uncomplicated; Z79.899 Other long term (current) drug therapy
CPT/HCPCS: 36415; 80053; 80307; 81001; 83690; 83735; 85025; 87086; 96361; 96374; 96375; 96376; 99285; J2060; J2405; J7120; S9485

== ENCOUNTER 2024-09-16 10:46 | Emergency (ER) | payer OTHER, SELFPAY ==
[2024-09-16] VITALS (15 sets, daily range): BP systolic 88–151; BP diastolic 44–97; PULSE 110–164; RESP 16–24; TEMP 32–36.8; O2SAT 96–100; BMI 22.8
--- NOTE | ~2024-09-16 | CT_ITS ---
EXAMINATION: CT HEAD WITHOUT CONTRAST CLINICAL INFORMATION: Seizure. COMPARISON: CT head dated 06/19/2024. TECHNIQUE: Contiguous axial imaging was performed from the skull base to vertex without intravenous administration of contrast. This CT examination was performed using dose optimization techniques as appropriate, variously including the following: *Automated exposure control *Adjustment of mA and/or kV according to patient size (this includes techniques or standardized protocols for targeted exams where dose is matched to indication/reason for exam; i.e. extremities or head) *Use of iterative reconstruction technique DLP: 622 mGy-cm FINDINGS: No acute intracranial hemorrhage. No mass effect or midline shift. No parenchymal lesion. The chase-white differentiation is maintained. No extra-axial fluid collection. The ventricles and sulci are unremarkable. The basal cisterns are patent. The calvarium is intact. The visualized paranasal sinuses and mastoid air cells are clear. CT/CT head/brain wo IV con IMPRESSION: No acute intracranial hemorrhage or mass effect. Electronically signed by: Edwin Ann MD 09/16/2024 01:30 PM SUNG
--- NOTE | ~2024-09-16 | XR_ITS ---
EXAMINATION: XR CHEST CLINICAL INFORMATION: Status post intubation. COMPARISON: Chest radiograph dated 06/19/2024. TECHNIQUE: Frontal view of the chest was obtained. FINDINGS: No significant abnormality is noted involving the heart, lungs, mediastinum, bony thorax or soft tissues. An endotracheal tube is seen with tip situated approximately 3.7 cm superior to the ayah. XR/XR chest 1V IMPRESSION: 1. Endotracheal tube tip position is satisfactory. 2. The lungs are grossly clear. Electronically signed by: Modesto Churchill MD 09/16/2024 02:30 PM SUNG GONZALEZ
--- NOTE | 2024-09-16 10:54 | ED_ITS ---
HPI - General Adult General Chief complaint: Seizure Stated complaint: UNWIT SZ,POSTICTAL PER EMS Time Seen by Provider: 09/16/24 10:48 Source: patient and EMS Mode of arrival: EMS Limitations: altered mental status History of Present Illness ED Provider: RAFAEL Palacios HPI narrative: This is a 33-year-old female history of alcohol withdrawal with history of delirium tremens, status epilepticus, anxiety, depression comes in with seizures this morning she had a seizure that was unwitnessed at home and then had a seizure with EMS. Patient is unable to answer my questions however I did have this patient about a week ago, at that time she was telling me she was trying to stop drinking, she reports heavy drinking 5 nips or more a day. A bout a week ago she states every time she drinks she tries to compensate with large amounts of water. She is postictal at this time she is not alert to person, place, time or situation. No evidence of trauma. Per EMS there was white pills crushed up all over her room. They did not see alcohol. No family members or friends to provide further history. Related Data Home Medications ?Medication ?Instructions ?Recorded ?Confirmed hydroxyzine HCl 25 mg tablet 50 mg PO BID anxiety 06/19/24 08/29/24 omeprazole 20 mg capsule,delayed 20 mg PO BID 06/19/24 08/29/24 release quetiapine 25 mg tablet 25 mg PO TID PRN anxiety 06/19/24 08/29/24 quetiapine 50 mg tablet 50 - 100 mg PO BEDTIME 06/19/24 08/29/24 sucralfate 1 gram tablet 1 g PO QID 06/19/24 08/29/24 hydroxyzine HCl 25 mg tablet 25 mg PO DAILY PRN Anxiety 08/29/24 08/29/24 magnesium oxide 400 mg (241.3 mg 400 mg PO DAILY 08/29/24 08/29/24 magnesium) tablet sertraline 100 mg tablet 100 mg PO DAILY 08/29/24 08/29/24 topiramate 25 mg tablet 25 mg PO BEDTIME 08/29/24 08/29/24 Previous Rx's ?Medication ?Instructions ?Recorded folic acid 1 mg tablet 1 mg PO DAILY #30 tabs 05/24/23 multivitamin (Daily-Laura tablet) 1 tab PO DAILY #30 tabs 05/24/23 thiamine mononitrate (vit B1) 100 100 mg PO DAILY #30 tabs 05/24/23 mg tablet naltrexone microspheres 380 mg 380 mg IM Q4W #1 ea 05/31/23 intramuscular suspension,extended release (Vivitrol) Allergies Allergy/AdvReac Type Severity Reaction Status Date / Time Iodinated Contrast Media AdvReac Hives Verified 09/16/24 10:58 [Contrast Dye] Review of Systems 2 Review of Systems: Yes all other systems are reviewed and are negative [facility] Past Medical History Attestation statement: The following information was validated with the patient. Source: old records reviewed and nursing notes reviewed Medical History Acute respiratory failure Acute hypokalemia Acute hyponatremia Alcohol withdrawal Status epilepticus Alcohol use disorder, severe, dependence Withdrawal seizures Depression Alcoholism Social History Social History Household Members: Spouse and Family Household Members Other:: bf, mom Housing: House Do you presently have visiting nurse or other home services: No Alcohol intake: current Alcohol intake frequency: 3 or more drinks per day Alcohol type: hard liquor Comment: pt refused bed alarm Patient Tobacco Use Status: Tobacco use Unknown e-Cigarette/Vaping Use: Currently Using Substance Use Type: Marijuana Advance Directives: No Advance Directives Information Provided: No Do you have a plan to hurt others: No Plan service: No Physical Exam ED Vital Signs: Vital Signs - 24 hr 09/16/24 10:57 09/16/24 12:06 Temperature 97.9 F 98.2 F Pulse Rate 127 H 124 H Respiratory Rate 24 H 16 Blood Pressure 151/97 H 148/97 H Pulse Oximetry 96 100 Oxygen Delivery Method Room Air Aerosol Mask Oxygen Flow Rate 7 BMI result Body Mass Index 22.8 vss Appearance: Alert.? Awake. Patient not oriented to person, place, time or situation she is postictal? No acute distress.? Head: Normocephalic, atraumatic, no step-offs or deformities Eyes: Pupils L 2 mm right 4 mm, round and reactive to light.? ENT: Pharynx normal.? Neck: Normal inspection.? Neck supple.? CVS: Normal heart rate and rhythm.? Pulses normal.? Respiratory: No respiratory distress.? Breath sounds normal.? Abdomen: Soft and nontender.? Skin: Skin warm and dry.? Normal skin color.? Normal skin turgor.? Extremities: No lower extremity edema.? No calf ttp. 5/5 strength to bilateral upper and lower extremities Neuro: Awake, patient not oriented to person, place time or situation she is postictal. Course Reevaluation(s) Reevaluation #1: CBC with leukocytosis and shift this is likely reactive secondary to seizure- like activity. Chemistry with elevated anion gap of 25 likely secondary to ethanol. Remainder of chemistry is pending, alcohol is pending. Time: 12:17 Reevaluation #2: Chemistry with low sodium 123, potassium 2.7, carbon dioxide 39,, again anion gap of 25 likely secondary to alcohol, BUN of 23 likely secondary to dehydration I am concerned for beer potomania in the setting of patient drinking beer ( unclear what she has been drinking lately) on this patient as well as acute alcohol withdrawal. Time: 12:39 Reevaluation #3: Plan hospital admission Time: 12:43 Additional Reevaluation(s): 1249 I just witnessed a 45 second long tonic-clonic seizure, 2 mg of IV Ativan ordered. 1255 patient initially stopped seizing after Ativan then started up again, partial seizure, patient tonic, seems as though she is aspirating on her secretions, concerns for airway, tachycardic in the 150s, 160, rapid sequence intubation was done at the bedside with no complications I used a 7.5 tube 22 at the lip, visualize the cords using video guided GlideScope. Will order chest x- ray for confirmation of placement. There is no room in our ICU, [facility] at capacity, so as [facility], will reach out to [facility]. 1322 Patient accepted to [facility] ED Dr. Leonardo [phone] ( demo shet to be sent there) Medications Administered Discontinued Medications Generic Name Dose Route Start Last Admin Trade Name Freq PRN Reason Stop Dose Admin Thiamine HCl 200 mg/ Sodium 102 mls @ 204 mls/hr 09/16/24 10:48 09/16/24 12:35 Chloride IV 09/16/24 11:17 Infused ONCE ONE Infusion Folic Acid 1 mg/ Sodium 50.2 mls @ 100.4 mls/hr 09/16/24 10:48 09/16/24 12:30 Chloride IV 09/16/24 11:17 Infused ONCE ONE Infusion Lorazepam 2 mg 09/16/24 10:48 09/16/24 11:03 Lorazepam 2 Mg/Ml Vial IVPUSH 09/16/24 10:49 2 mg ONCE ONE Administration Phenobarbital Sodium 380 mg 09/16/24 12:00 09/16/24 11:53 Phenobarbital Sodium 130 Mg/Ml Im Once IM 09/16/24 12:01 380 mg ONCE ONE Administration Protocol Procedures Intubation Intubation Type:: Emergency Endotracheal Intubation Intubation Date:: 09/16/24 Intubation Time:: 13:12 Time out performed: Yes sedative: Versed Mg Given: 4 paralytic: Rocuronium Mg Given: 50 Laryngoscope: fiber optic video scope Assist Device Used: fiber optic device ET Tube Size: 7.5 ET Tube Uncuffed: No Tube Secured Depth (cm): 22 Tube Secured Location: lips Tube Placement Confirmation: visualized tube passing through cords, equal breath sounds bilaterally and no breath sounds over epigastrium Patient Tolerated Procedure: well Intubation Complications: none Medical Decision Making Medical Decision Making [facility] Narrative: 1057 33-year-old female presents with multiple seizures morning. Known history of alcohol withdrawal seizures and status epilepticus as well as delirium tremens. Physical exam patient is not oriented to person, place time or situation she is postictal. History and physical exam concerning for alcohol withdrawal seizures. Will rule out metabolic derangements, intracranial hemorrhage although unlikely no signs or reports of trauma. Will also rule out polysubstance abuse. Plan at this time labs, imaging, urine. Differential Diagnosis Differential Diagnoses: The differential diagnosis associated with the presentation includes (History and physical exam concerning for alcohol withdrawal seizures. Will rule out metabolic derangements, intracranial hemorrhage although unlikely no signs or reports of trauma. Will also rule out polysubstance abuse.) Admission/Observation Consideration of admission/observation: Escalation of care including admission/observation considered Lab Data [facility] Lab Attestation statement: I reviewed the patient's lab results. 09/16/24 11:21 09/16/24 11:21 Labs: Lab Results 09/16/24 Range/Units 11:21 WBC 16.7 H (4.8-10.8) X10*3/uL RBC 4.51 (4.20-5.50) X10*6/uL Hgb 13.1 (12.0-16.0) g/dl Hct 36.0 L (37.0-47.0) % MCV 79.8 L (80.0-98.0) fL MCH 29.0 (27.0-33.0) pg MCHC 36.4 H (31.0-35.0) g/dl RDW 12.6 (11.0-16.0) % Plt Count 131 L D (160-400) X10*3/uL MPV 9.9 (9.4-12.3) fL Immature Gran % (Auto) 1.5 H (0.0-0.4) % Neut % (Auto) 86.4 H (45-73) % Lymph % (Auto) 4.9 L (20-40) % [place] % (Auto) 7.0 (2-11) % Eos % (Auto) 0.0 (0-4) % Baso % (Auto) 0.2 (0-2) % Lymph # (Auto) 0.8 L (1.2-4.9) X10*3/uL [place] # (Auto) 1.2 (0.1-1.2) X10*3/uL Eos # (Auto) 0.0 (0.0-0.4) X10*3/uL Baso # (Auto) 0.0 (0.0-0.2) X10*3/uL Abs Immat Gran (auto) 0.25 H (0.00-0.03) X10*3/uL Absolute Neuts (auto) 14.5 H (2.0-8.3) x10*3/uL Absolute Nucleated RBC 0.000 (0.0-0.012) X10*3/uL Nucleated RBC % (auto) 0.0 (0.0-0.2) /100WBC PT 21.0 H (10.9-12.4) SEC INR 1.8 H (0.9-1.1) Sodium 123 L (135-145) mmol/L Potassium 2.7 L* D (3.3-5.1) mmol/L Chloride 62 L D (96-108) mmol/L Carbon Dioxide 39 H (22-29) mmol/L Anion Gap 25 H (12-20) BUN 23 H (9-16) mg/dL Creatinine 0.87 (0.5-1.4) mg/dL Estim Creat Clear Calc 92.7 Estimated GFR > 60 Random Glucose 126 H (60-115) mg/dL Calcium 8.4 D (8.4-10.2) mg/dL Magnesium 2.3 (1.6-2.6) mg/dL Total Bilirubin 1.2 H (0.0-1.0) mg/dL AST 55 H (5-31) U/L ALT 19 (0-31) U/L Alkaline Phosphatase 137 H (39-117) U/L Total Protein 7.8 (6.5-8.0) g/dL Albumin 4.1 (3.5-5.0) g/dL Ethyl Alcohol < 10 mg/dL Independent Interpretation I performed an independent interpretation of an: CT Scan Radiology Impression Discussion of test interpretation with radiology: I have reviewed the radiologist's reading. Independent Historian Clinical information obtained from an independent historian. History obtained from or confirmed by: Other (significant other ) External Record Review External record reviewed: Inpatient record, Office record, Outpatient record, Prior outpatient labs, Prior outpatient radiology, Primary care record and Outside ED record Chronic Conditions Patient?s care impacted by: Other (see hpi ) Critical Care Time Critical Care Time Critical Care Time: Yes Total Critical Care Time: 45 Attestation: I attest to this time spent taking care of the patient, obtaining history, physical, reviewing labs, imaging, treatment of patients condition +/- specialist/hospitalist consult Discharge Plan Discharge Clinical Impression: Status epilepticus, Alcohol withdrawal seizure, Hypokalemia Patient Disposition: [facility] Transfer Details: [facility] ED Dr. Leonardo Prescriptions: No Action multivitamin [Daily-Laura] Tablet 1 tab PO DAILY Qty: 30 0RF folic acid 1 mg Tablet 1 mg PO DAILY Qty: 30 0RF thiamine mononitrate (vit B1) 100 mg Tablet 100 mg PO DAILY Qty: 30 0RF quetiapine 25 mg tablet 25 mg PO TID PRN (Reason: anxiety) sucralfate 1 gram tablet 1 g PO QID omeprazole 20 mg capsule,delayed release(DR/EC) 20 mg PO BID hydroxyzine HCl 25 mg tablet 50 mg PO BID quetiapine 50 mg tablet 50 - 100 mg PO BEDTIME sertraline 100 mg tablet 100 mg PO DAILY topiramate 25 mg tablet 25 mg PO BEDTIME hydroxyzine HCl 25 mg tablet 25 mg PO DAILY PRN (Reason: Anxiety) magnesium oxide 400 mg (241.3 mg magnesium) tablet 400 mg PO DAILY Vivitrol 380 mg suspension,extended rel recon 380 mg IM Q4W Qty: 1 5RF Print Language: Portuguese
[2024-09-16] MEDS: LORazepam 2 MG/ML VIAL IVPUSH ×2 (11:03→12:51)
[2024-09-16] MEDS: Thiamine HCL 200 MG in 0.9 % Sodium Chloride 100 ML 204 MG IV (11:10)
[2024-09-16 11:24] LABS: MANUAL DIFF FLAG NO
[2024-09-16 11:36] LABS: INTERNATIONAL NORM RATIO 1.8 (0.9-1.1)
[2024-09-16 11:37] LABS: Basophils Percent Auto 0.2 % (0-2); Hemoglobin 13.1 g/dl (12.0-16.0); Imm Gran Abs Auto 0.25 X10*3/uL (0.00-0.03); Imm Gran Pct Auto 1.5 % (0.0-0.4); Lymphocytes Absolute Auto 0.8 X10*3/uL (1.2-4.9); Lymphocytes Percent Auto 4.9 % (20-40); Mean Corpuscular HGB Conc 36.4 g/dl (31.0-35.0); Mean Corpuscular Volume 79.8 fL (80.0-98.0); Mean Platelet Volume 9.9 fL (9.4-12.3); Monocytes Absolute Auto 1.2 X10*3/uL (0.1-1.2); Neutrophils Absolute Auto 14.5 x10*3/uL (2.0-8.3); Neutrophils Percent Auto 86.4 % (45-73); Red Blood Count 4.51 X10*6/uL (4.20-5.50); Red Cell Distribution Width 12.6 % (11.0-16.0); White Blood Count 16.7 X10*3/uL (4.8-10.8)
[2024-09-16 11:43] LABS: Anion Gap 25 (12-20)
[2024-09-16] MEDS: PHENobarbitaL sodium 130 MG/ML IM ONCE 380 MG IM (11:53)
[2024-09-16] MEDS: Folic Acid 1 MG in 0.9 % Sodium Chloride 50 ML 100.4 MG IV (11:53)
[2024-09-16 12:01] LABS: Platelet Count 131 X10*3/uL (160-400)
[2024-09-16 12:27] LABS: Alanine Aminotransferase 19 U/L (0-31); Albumin Level 4.1 g/dL (3.5-5.0); Alkaline Phosphatase 137 U/L (39-117); Aspartate Amino Transferase 55 U/L (5-31); Bilirubin Total 1.2 mg/dL (0.0-1.0); Blood Urea Nitrogen 23 mg/dL (9-16); Calcium 8.4 mg/dL (8.4-10.2); Carbon Dioxide 39 mmol/L (22-29); Chloride 62 mmol/L (96-108); Creatinine Clr Calc Pharmacy 92.7; Estimated Glomerular Filt Rate > 60; Ethanol < 10 mg/dL; Glucose Random 126 mg/dL (60-115); Magnesium 2.3 mg/dL (1.6-2.6); Potassium 2.7 mmol/L (3.3-5.1); Sodium 123 mmol/L (135-145); Total Protein 7.8 g/dL (6.5-8.0)
--- NOTE | 2024-09-16 12:43 | ECG_ITS ---
Test Reason : WITHDRAWAL Blood Pressure : / mmHG Vent. Rate : 137 BPM Atrial Rate : 137 BPM P-R Int : 112 ms QRS Dur : 082 ms QT Int : 376 ms P-R-T Axes : 000 148 147 degrees QTc Int : 567 ms Sinus tachycardia Left posterior fascicular block Cannot rule out Inferior infarct , age undetermined Abnormal ECG When compared with ECG of 29-AUG-2024 02:45, T wave inversion now evident in Lateral leads Referred By: Frannie Palacios Electronically Signed By:Luca Harris
--- NOTE | 2024-09-16 12:49 | PC.NURSE ---
Pt had approx 45 second seizure, RAFAEL Turner and this RN at bedside. Verbal order for 2mg Ativan IVP, given per RAFAEL
[2024-09-16] MEDS: Rocuronium Bromide 50 MG/5 ML VIAL IVPUSH (13:04)
[2024-09-16] MEDS: Midazolam HCl/PF 2 MG/2 ML VIAL 4 MG IVPUSH (13:04)
[2024-09-16] MEDS: propofoL 1,000 MG/100 ML VIAL 4.08 MG IVCONT (13:06)
[2024-09-16] MEDS: levETIRAcetam in NaCl (iso-os) 1,000 MG/100 ML PIGGYBACK 400 MG IV (13:48)
[2024-09-16] MEDS: PHENobarbitaL sodium 130 MG/ML VIAL IVPUSH (13:48)
[2024-09-16] MEDS: Midazolam HCl/NS 50 MG/50 ML PLAST..BAG IVCONT (14:33)
[2024-09-16 14:34] LABS: Appearance Urine Cloudy; Color Urine Yellow; Glucose Urine UA Negative (Negative); Leukocyte Esterase Urine Negative (Negative); Nitrite Urine Negative (Negative); PH 7.5 (5.0-9.0); UMIC TRIGGER UACC YES; Urine Blood Negative (Negative); Urine Ketones Negative (Negative); Urine Protein 100 (2+) mg/dL (Neg-Trace)
[2024-09-16 14:36] LABS: UPreg QC Valid YES; Urine Pregnancy NEGATIVE (NEGATIVE)
[2024-09-16] MEDS: Magnesium Sulfate/H2O 2 GM/50 ML PIGGYBACK IV (14:40)
[2024-09-16 14:44] LABS: Bacteria Urine None Seen (None Seen); Squamous Epithelial Cell Urine 0-2 /HPF (0-2); WBC Urine 0-5 /HPF (0-5)
[2024-09-16 14:45] LABS: Amphetamine Screen Urine Not Detected (Not Detect); Barbiturates, Urine POSITIVE (Not Detect); Benzodiazepines Screen Urine POSITIVE (Not Detect); Buprenorphine Scr Not Detected (Not Detect); Cannabinoid Screen Urine Not Detected (Not Detect); Cocaine Screen Urine Not Detected (Not Detect); Fentanyl, urine Not Detected (Not Detect); Methadone Screen, Urine Not Detected (Not Detect); Opiate Screen Urine Not Detected (Not Detect); Oxycodone Screen Urine Not Detected (Not Detect); Phencyclidine Screen Urine Not Detected (Not Detect); RBC Urine 0-2 /HPF (0-2)
[2024-09-16] MEDS: fentaNYL citrate/NS 1,000 MCG/100 ML PLAST..BAG 2.5 MCG IVCONT (14:47)
[2024-09-16] MEDS: Potassium Chloride/H20 10 MEQ/100 ML PIGGYBACK 100 MEQ IV ×4 (14:50→17:25)
[2024-09-16] MEDS: dexmedeTOMIDidine HCL/NS 400 MCG/100 ML INFUS..BTL 17.01 MCG IVCONT (15:03)
--- NOTE | 2024-09-16 15:05 | PC.NURSE ---
Verbal order by RAFAEL Turner to d/c Propofol drip and start Precedex drip @ 1mcg/kg/min
[2024-09-16 15:46] LABS: VBG Base Excess 30.3 mmol/L; VBG HCO3 47 mmol/L (22-26); VBG pCO2 22 mmHg; VBG pH 7.93 (7.32-7.43); VBG pO2 238 mmHg
[2024-09-16 15:46] LABS: Venous Blood Gas Refer to POC result
--- NOTE | 2024-09-16 16:00 | PC.NURSE ---
Pt BP 90s/50s, RAFAEL Turner aware. Verbal order to start Levophed drip. Drip started at 0.05mcg/kg/min. BP cycling q 5 min. 5 min BP check 88s/44. Verbal orders given @ bedside to titrate above protocol. Refer to MAR for titration. Pt BP 117/56.
[2024-09-16] MEDS: Norepinephrine Bitartrate/D5W 8 MG/250 ML PLAST..BAG 6.38 MG IVCONT (16:01)
--- NOTE | 2024-09-16 16:04 | PC.NURSE ---
Verbal order by RAFAEL Turner to restart Propofol drip @ 50mcg/kg/min.
[2024-09-16] MEDS: propofoL 1,000 MG/100 ML VIAL 20.41 MG IVCONT ×2 (16:05→16:47)
--- NOTE | 2024-09-16 16:06 | PHA.MEDREC ---
Pharmacy Consult ? Medication Reconciliation Pharmacy has completed the medication reconciliation. Pt intubated and no family member phone is active. Called pharmacy to confirm meds.
[2024-09-16 16:16] LABS: MANUAL DIFF FLAG NO
[2024-09-16 16:17] LABS: Basophils Percent Auto 0.2 % (0-2); Eosinophils Absolute Auto 0.1 X10*3/uL (0.0-0.4); Eosinophils Percent Auto 0.6 % (0-4); Hematocrit 33.3 % (37.0-47.0); Imm Gran Abs Auto 0.12 X10*3/uL (0.00-0.03); Imm Gran Pct Auto 1.1 % (0.0-0.4); Lymphocytes Percent Auto 8.7 % (20-40); Mean Corpuscular Hemoglobin 28.4 pg (27.0-33.0); Mean Corpuscular Volume 78.9 fL (80.0-98.0); Mean Platelet Volume 9.5 fL (9.4-12.3); Monocytes Absolute Auto 0.6 X10*3/uL (0.1-1.2); Monocytes Percent Auto 5.4 % (2-11); Neutrophils Absolute Auto 9.5 x10*3/uL (2.0-8.3); Red Blood Count 4.22 X10*6/uL (4.20-5.50); Red Cell Distribution Width 12.8 % (11.0-16.0); White Blood Count 11.3 X10*3/uL (4.8-10.8)
[2024-09-16 16:20] LABS: Platelet Count 93 X10*3/uL (160-400)
[2024-09-16] MEDS: PHENobarbitaL sodium 130 MG/ML VIAL IM Q3Hx2 290 MG IM (16:20)
[2024-09-16 16:24] LABS: ABG HCO3 45 mmol/L (22-26); ABG pCO2 32 mmHg (32-45); ABG pH 7.76 (7.35-7.45); ABG pO2 212 mmHg (83-108)
[2024-09-16 16:27] LABS: ABG Refer to POC result
[2024-09-16 16:52] LABS: Alanine Aminotransferase 14 U/L (0-31); Albumin Level 3.6 g/dL (3.5-5.0); Anion Gap 23 (12-20); Aspartate Amino Transferase 51 U/L (5-31); Bilirubin Total 1.1 mg/dL (0.0-1.0); Blood Urea Nitrogen 20 mg/dL (9-16); Calcium 8.3 mg/dL (8.4-10.2); Carbon Dioxide 35 mmol/L (22-29); Chloride 65 mmol/L (96-108); Creatinine Clr Calc Pharmacy 100.9; Estimated Glomerular Filt Rate > 60; Glucose Random 140 mg/dL (60-115); Potassium 2.3 mmol/L (3.3-5.1); Sodium 121 mmol/L (135-145); Total Protein 6.9 g/dL (6.5-8.0)
[2024-09-16 16:56] LABS: Alkaline Phosphatase 122 U/L (39-117)
--- NOTE | 2024-09-16 17:24 | PC.NURSE ---
Addendum entered by Dom Murphy RN 09/16/24 17:25: 1st dose of IV K completed prior to life flight staff leaving ER. life flight started two doses of IV K prior to leaving ER, 3rd bag taken by life flight staff for possible administration during transport Original Note: life flight requested multiple bags of IV K. K scanned in and given to life flight staff
--- NOTE | 2024-09-16 17:34 | PC.NURSE ---
Late charting d/t pt care. Pt biba from home for unwitnessed seizure, found by significant other on floor. En route to ED pt had approx 30 second seizure witnessed by EMS. Arrives post ictal to ED, not responding to verbal/painful stimuli. 20g IV placed bilateral wrists, pt medicated per MAR. Sinus tach on monitoring specialist, HR 120s. Pt desat into high 70s, placed on oxymask 5L with good effect, O2 92-95%, PA made aware. Per significant other, pt last drink 2 weeks ago, [place] [facility] [place], unknown how much pt drinks, approx 5 nips/day. GCS of 6, pupils unequal, unreactive to light. Sinus tach on monitoring specialist, HR up to 160s. This RN was in the room and witnessed a 45 second clonic seizure, RAFAEL Turner made aware and at bedside, verbal order for 2mg Ativan given. Seizure broke partially, pt then went back into a clonic seizure, unable to maintain her own airway, risk for aspiration, seizure lasting 6 minutes. RAFAEL made decision to intubate pt. , RAFAEL, RN and Respiratory at bedside. Pt intubated @ 1305, 7.5 ett, 22 at the lip, refer to MAR for medications. 16fr carroll cath placed, 400ml of urine output.
[2024-09-16 19:06] LABS: Osmolality Urine 536 mosm/kg (373-1093)
== END 2024-09-16 18:33 | disposition short-term general hospital (02) ==
PROVIDERS: Physician Assistant; Emergency Provider Emergency Medicine; PCP Family Medicine
DX: G40.901 Epilepsy, unspecified, not intractable, with status epilepticus (principal); F10.239 Alcohol dependence with withdrawal, unspecified; Y90.0 Blood alcohol level of less than 20 mg/100 ml; E87.6 Hypokalemia; R79.89 Other specified abnormal findings of blood chemistry
CPT/HCPCS: 31500; 36415; 70450; 71045; 80053; 80307; 81001; 81025; 82803; 83735; 83935; 85025; 85610; 93005; 94002; 96365; 96366; 96367; 96368; 96372; 96375; 96376; 99285; 99291; J1953; J2060; J2250; J2251; J2560; J2704; J3010; J3411; J3475; J3480

== ENCOUNTER → 2024-09-16 12:43 | Outpatient (BNV) | payer OTHER, SELFPAY | PROVIDERS: Emergency Provider Emergency Medicine; PCP Family Medicine; Visit Provider Internal Medicine Cardiovascular Disease | DX: R00.0 Tachycardia, unspecified (principal); R94.31 Abnormal electrocardiogram [ECG] [EKG] | CPT/HCPCS: 93010 ==

== ENCOUNTER 2024-10-06 12:47 | Outpatient (REF) | payer OTHER, SELFPAY ==
--- NOTE | ~2024-10-06 | MR_ITS ---
EXAMINATION: MR BRAIN WITHOUT AND WITH CONTRAST MR ORBITS WITHOUT AND WITH CONTRAST CLINICAL INFORMATION: Migraines. Change in vision. Dizziness. Seizures. COMPARISON: CT head from 09/16/2024. Brain MRI from 09/17/2024. TECHNIQUE: MRI of the brain and orbits was obtained using routine sequences without and following the administration of 5.5 mL of Gadavist intravenous contrast. FINDINGS: No focal restricted diffusion is demonstrated to suggest acute or subacute cerebral ischemia. No evidence of acute or chronic hemorrhagic products on heme-sensitive imaging. Few nonspecific scattered foci of T2 FLAIR hyperintensity within the frontoparietal lobes. No additional parenchymal signal abnormalities. The ventricles are normal in morphology and size. No abnormal mass effect. No midline shift. Normal positioning of the cerebellar tonsils. No significant preseptal or retrobulbar edema. Left-sided lens extraction. Otherwise, normal appearance of the globes. Normal symmetric appearance of the extraocular musculature. No abnormalities of the intraconal or extraconal adipose tissue. Chronic nonspecific mild T2 hyperintensity within the intracranial and intracanalicular segments of the left optic nerve without associated enhancement. Normal appearance of the right optic nerve. Normal appearance of the optic nerve sheaths. Normal appearance of the lacrimal glands. No orbital fluid collections. No abnormalities of the orbital apices. Normal appearance of the optic chiasm. Normal appearance of the pituitary gland and infundibulum. Normal appearance of the cavernous sinuses without abnormal filling defects. No demonstrated abnormalities of the intracranial internal carotid or anterior cerebral arteries. Normal arterial and venous vascular flow voids are present. No abnormal contrast enhancement. No residual pachymeningeal enhancement. The visualized premaxillary, retromaxillary, pterygopalatine fossa, and temporal fossa adipose tissue is maintained. Normal, homogeneous marrow signal. Mild mucosal thickening of the paranasal sinuses. Mild rightward nasal septal deviation with spurring. No signal abnormalities within the mastoids. MR/MR orbits face neck wo/w con IMPRESSION: 1. No acute intracranial abnormalities. No abnormal intracranial enhancement. 2. Chronic nonspecific mild T2 hyperintensity within the intracranial and intracanalicular segments of the left optic nerve without associated enhancement. This may represent sequela of prior optic neuritis or traumatic injury. 3. Minimal nonspecific white matter changes. 4. No additional MRI abnormalities of the orbits. Electronically signed by: Jarvis Covarrubias DO 10/16/2024 09:00 AM EST CARLOS
[2024-10-06] MEDS: gadobutroL 7.5 ML VIAL IVPUSH (15:01)
--- OUTSIDE RECORDS SUMMARY | 2024-10-11 09:01 | XMS_ITS ---
Author Name [facility] Organization Unknown Results Test Name/Text Value Interpretation Date Range Source Sodium SerPl-sCnc 132mmol/L Below low normal [id number] 13 6 - 145 [facility] Phosphate SerPl-mCnc 4.5mg/dL Normal [id number] 2.7 - 4.5 [facility] Chloride SerPl-sCnc 99mmol/L Normal [id number] 98 - 10 7 [facility] Glucose SerPl-mCnc 92mg/dL Normal [id number] 65 - 99 [facility] GFR/BSA.pred SerPlBld ZFA-HOV-VxUByp 90 Normal [id number] 59 - [facility] Creat SerPl-mCnc 0.5mg/dL Normal [id number] 0.4 - 1.1 [facility] BUN/Creat SerPl 6Ratio Below low normal [id number] 10 - 25 [facility] Anion Gap Bld-sCnc 9 Normal 130864007976 7 - 17 [facility] Calcium SerPl-mCnc 9.3mg/dL Normal [id number] 8.7 - 10 .5 [facility] CO2 SerPl-sCnc 27mmol/L Normal [id number] 22 - 33 HH CCT BUN SerPl-mCnc 3mg/dL Below low normal 663936552914 8 - 2 1 [facility] Sodium SerPl-sCnc 135mmol/L Below low normal 177366898276 13 6 - 145 [facility] Potassium SerPl-sCnc 4.1mmol/L Normal [id number] 3.4 - 5.3 [facility] Magnesium SerPl-mCnc 1.6mg/dL Normal [id number] 1.6 - 2.7 [facility]CT MCH RBC Qn Auto 28pg Normal 390112304086 26 - 34 H [facility] PMV Bld Auto 9.4fL Normal [id number] 7.5 - 12.[address] RDW RBC Auto-Rto 14.4% Normal [id number] 11.5 - 14. 5 [facility] Hct VFr Bld Auto 31.8% Below low normal 802670143759 35 - 47 [facility] Platelet num Bld Auto 214Thou/uL Normal [id number] 150 - 450 [facility]CT MCHC RBC Auto-mCnc 32.4g/dL Normal [id number] 30 - 36 [facility]CT MCV RBC Auto 86fL Normal [id number] 80 - 100 HH[facility] T WBC num Bld Auto 5.9Thou/uL Normal 413209785158 4 - 11 [facility] RBC num Bld Auto 3.68Mil/uL Below low normal 671743744859 4 - 5.4 [facility]CT Hgb Bld-mCnc 10.3g/dL Below low normal [id number] 11.7 - 15.7 H[facility]CT CK SerPl-cCnc 4731U/L Critically high 398882057161 24 - 17 3 H[facility]CT Sodium SerPl-sCnc 131mmol/L Below low normal 264873224349 13 6 - 145 [facility] CK SerPl-cCnc 5457U/L Critically high 442079583940 24 - 17 3 H[facility]CT Sodium SerPl-sCnc 126mmol/L Below low normal 082893613156 13 6 - 145 [facility]CT Heparin PF4 Antibody Normal 015011078307 - HHCCT CK SerPl-cCnc 5216U/L Critically high 704310470752 24 - 17 3 [facility]CT Sodium SerPl-sCnc 132mmol/L Below low normal 365787298641 13 6 - 145 [facility] POC Glucose 85mg/dL Normal 724998608822 65 - 99 [facility]CT POC Glucose 87mg/dL Normal 750744472326 65 - 99 H[facility]CT CK SerPl-cCnc 6008U/L Critically high 807896225560 24 - 17 3 H[facility]CT Chloride SerPl-sCnc 101mmol/L Normal [id number] 98 - 10 7 H[facility]CT Glucose SerPl-mCnc 95mg/dL Normal [id number] 65 - 99 HHCCT GFR/BSA.pred SerPlBld KPT-ZUA-VkGQod 90 Normal [id number] 59 - HHCCT Creat SerPl-mCnc 0.4mg/dL Normal [id number] 0.4 - 1.1 HHCCT BUN/Creat SerPl 10Ratio Normal [id number] 10 - 25 H HCCT Anion Gap Bld-sCnc 9 Normal [id number] 7 - 17 H[facility]CT Calcium SerPl-mCnc 9mg/dL Normal [id number] 8.7 - 10 .5 H[facility]CT CO2 SerPl-sCnc 24mmol/L Normal [id number] 22 - 33 HH CCT BUN SerPl-mCnc 4mg/dL Below low normal 705196520894 8 - 2 1 H[facility]CT Sodium SerPl-sCnc 134mmol/L Below low normal [id number] 13 6 - 145 [facility]CT Potassium SerPl-sCnc 4.3mmol/L Normal [id number] 3.4 - 5.3 HHCCT Magnesium SerPl-mCnc 1.7mg/dL Normal [id number] 1.6 - 2.7 HHCCT Phosphate SerPl-mCnc 4.4mg/dL Normal 234327522130 2.7 - 4.5 HHCCT MCH RBC Qn Auto 28.6pg Normal [id number] 26 - 34 H HCCT PMV Bld Auto 9.7fL Normal [id number] 7.5 - 12.[address] RDW RBC Auto-Rto 13.4% Normal [id number] 11.5 - 14. 5 HHCCT Hct VFr Bld Auto 28.8% Below low normal [id number] 35 - 47 [facility]CT Platelet num Bld Auto 115Thou/uL Below low normal [id number] 41 150 - 450 H[facility]CT MCHC RBC Auto-mCnc 33.3g/dL Normal 589899458961 30 - 36 HHCCT MCV RBC Auto 86fL Normal [id number] 80 - 100 HHCC T WBC num Bld Auto 6.7Thou/uL Normal [id number] 4 - 11 HHCCT RBC num Bld Auto 3.36Mil/uL Below low normal [id number] 4 - 5.4 HHCCT Hgb Bld-mCnc 9.6g/dL Below low normal 013439302242 11.7 - 15.7 HHCCT POC Glucose 95mg/dL Normal 893651663457 65 - 99 HHCCT Sodium SerPl-sCnc 127mmol/L Below low normal 486305761067 13 6 - 145 H[facility]CT POC Glucose 99mg/dL Normal [id number] 65 - 99 HHCCT Sodium SerPl-sCnc 129mmol/L Below low normal 915281408060 13 6 - 145 HHCCT POC Glucose 87mg/dL Normal 590992036255 65 - 99 HHCCT Phosphate SerPl-mCnc 2.5mg/dL Below low normal [id number] 2.7 - 4.5 HHCCT Chloride SerPl-sCnc 93mmol/L Below low normal [id number] 98 - 107 H[facility]CT Glucose SerPl-mCnc 100mg/dL Above high normal [id number] 65 - 99 HHCCT GFR/BSA.pred SerPlBld TKO-EEX-IwIYyt 90 Normal [id number] 59 - HHCCT Creat SerPl-mCnc 0.4mg/dL Normal [id number] 0.4 - 1.1 HHCCT BUN/Creat SerPl 10Ratio Normal [id number] 10 - 25 H HCCT Anion Gap Bld-sCnc 14 Normal [id number] 7 - 17 HHCCT Calcium SerPl-mCnc 8.4mg/dL Below low normal 548761832039 8 .7 - 10.5 HHCCT CO2 SerPl-sCnc 21mmol/L Below low normal [id number] 22 - 33 [facility]CT BUN SerPl-mCnc 4mg/dL Below low normal 599152325918 8 - 2 1 HHCCT Sodium SerPl-sCnc 128mmol/L Below low normal 842784470628 13 6 - 145 H[facility]CT Potassium SerPl-sCnc 3.2mmol/L Below low normal 497214617316 3.4 - 5.3 HHCCT Magnesium SerPl-mCnc 2mg/dL Normal [id number] 1.6 - 2.7 HHCCT POC Glucose 80mg/dL Normal [id number] 65 - 99 HHCCT CK SerPl-cCnc 8000U/L Critically high 123650186031 24 - 17 3 HHCCT Sodium SerPl-sCnc 129mmol/L Below low normal 157120790666 13 6 - 145 [facility]HCCT CK SerPl-cCnc Normal [id number] 24 - [address] Sodium SerPl-sCnc 128mmol/L Below low normal 562289195721 13 6 - 145 HHCCT POC Glucose 77mg/dL Normal 592447568202 65 - 99 HHCCT Sodium SerPl-sCnc 129mmol/L Below low normal [id number] 13 6 - 145 HHCCT POC Glucose 89mg/dL Normal [id number] 65 - 99 HHCCT CK SerPl-cCnc 9700U/L Critically high 372715685655 24 - 17 3 HHCCT Phosphate SerPl-mCnc 2.1mg/dL Below low normal [id number] 2.7 - 4.5 HHCCT Chloride SerPl-sCnc 90mmol/L Below low normal 483195125845 98 - 107 HHCCT Glucose SerPl-mCnc 87mg/dL Normal [id number] 65 - 99 HHCCT GFR/BSA.pred SerPlBld YGH-VZU-RiJLrj 90 Normal [id number] 59 - HHCCT Creat SerPl-mCnc 0.4mg/dL Normal [id number] 0.4 - 1.1 HHCCT BUN/Creat SerPl 13Ratio Normal [id number] 10 - 25 H HCCT Anion Gap Bld-sCnc 14 Normal [id number] 7 - 17 HHCCT Calcium SerPl-mCnc 8.5mg/dL Below low normal [id number] 8 .7 - 10.5 HHCCT CO2 SerPl-sCnc 22mmol/L Normal [id number] 22 - 33 HH CCT BUN SerPl-mCnc 5mg/dL Below low normal 020739250412 8 - 2 1 H[facility]CT Sodium SerPl-sCnc 126mmol/L Below low normal [id number] 13 6 - 145 HHCCT Potassium SerPl-sCnc 3.4mmol/L Normal [id number] 3.4 - 5.3 HHCCT Magnesium SerPl-mCnc 1.5mg/dL Below low normal 991842420900 1.6 - 2.7 HHCCT MCH RBC Qn Auto 28pg Normal [id number] 26 - 34 H HCCT PMV Bld Auto 11fL Normal [id number] 7.5 - 12.[address] RDW RBC Auto-Rto 13% Normal [id number] 11.5 - 14. 5 HHCCT Immature Platelet Fraction 7% Normal [id number] 1.2 - 8.6 HHCCT Hct VFr Bld Auto 27.9% Below low normal 417303788305 35 - 47 H[facility]CT Platelet num Bld Auto 87Thou/uL Below low normal 49852864558 6 150 - 450 H[facility]CT MCHC RBC Auto-mCnc 33g/dL Normal [id number] 30 - 36 HHCCT MCV RBC Auto 85fL Normal [id number] 80 - 100 HHCC T WBC num Bld Auto 14.8Thou/uL Above high normal 006154675217 4 - 11 HHCCT RBC num Bld Auto 3.29Mil/uL Below low normal 468826610518 4 - 5.4 HHCCT Hgb Bld-mCnc 9.2g/dL Below low normal [id number] 11.7 - 15.7 HHCCT POC Glucose 91mg/dL Normal [id number] 65 - 99 HHCCT Sodium SerPl-sCnc 127mmol/L Below low normal [id number] 13 6 - 145 HHCCT POC Glucose 89mg/dL Normal [id number] 65 - 99 HHCCT Sodium SerPl-sCnc 127mmol/L Below low normal [id number] 13 6 - 145 HHCCT CK SerPl-cCnc 3721U/L Critically high 355203606323 24 - 17 3 HHCCT POC Glucose 87mg/dL Normal [id number] 65 - 99 HHCCT POC Glucose 97mg/dL Normal [id number] 65 - 99 HHCCT Vancomycin SerPl-mCnc 16mg/L Normal [id number] HHCCT C trach rRNA XXX Ql RACHAEL+probe Normal [id number] - HHCCT N gonorrhoea rRNA XXX Donr Ql PCR Normal [id number] - HHCCT Chloride SerPl-sCnc 92mmol/L Below low normal [id number] 98 - 107 HHCCT Glucose SerPl-mCnc 90mg/dL Normal [id number] 65 - 99 HHCCT GFR/BSA.pred SerPlBld LFO-NGK-NqYMln 90 Normal [id number] 59 - HHCCT Creat SerPl-mCnc 0.4mg/dL Normal [id number] 0.4 - 1.1 HHCCT BUN/Creat SerPl 15Ratio Normal [id number] 10 - 25 H HCCT Anion Gap Bld-sCnc 11 Normal [id number] 7 - 17 HHCCT Calcium SerPl-mCnc 8.2mg/dL Below low normal 330920610017 8 .7 - 10.5 HHCCT CO2 SerPl-sCnc 24mmol/L Normal [id number] 22 - 33 HH CCT BUN SerPl-mCnc 6mg/dL Below low normal 253914049232 8 - 2 1 HHCCT Sodium SerPl-sCnc 127mmol/L Below low normal [id number] 13 6 - 145 HHCCT Potassium SerPl-sCnc 3.1mmol/L Below low normal [id number] 3.4 - 5.3 HHCCT CK SerPl-cCnc 1902U/L Critically high 280403230321 24 - 17 3 HHCCT Phosphate SerPl-mCnc 1.9mg/dL Below low normal 499887185004 2.7 - 4.5 HHCCT Magnesium SerPl-mCnc 1.8mg/dL Normal [id number] 1.6 - 2.7 HHCCT HIV 1+2 Ab+HIV1 p24 Ag Ser EIA-aCnc Normal 390511506749 - HHCCT POC Glucose 95mg/dL Normal [id number] 65 - 99 HHCCT T. pallidum IgG+IgM Ser QI IA Normal 403541330374 - HHCCT Time of last dose Normal 618316264367 HHCCT Sodium SerPl-sCnc 127mmol/L Below low normal 756627047636 13 6 - 145 HHCCT POC Glucose 109mg/dL Above high normal 203346877435 65 - 99 HHCCT CK SerPl-cCnc 1611U/L Critically high 661147833192 24 - 17 3 HHCCT MCH RBC Qn Auto 28.1pg Normal [id number] 26 - 34 H HCCT PMV Bld Auto 11.6fL Normal [id number] 7.5 - 12.[address] RDW RBC Auto-Rto 13.1% Normal [id number] 11.5 - 14. 5 HHCCT Immature Platelet Fraction 9.8% Above high normal 232905194528 1.2 - 8.6 HHCCT Hct VFr Bld Auto 28.4% Below low normal [id number] 35 - 47 HHCCT Platelet num Bld Auto 71Thou/uL Below low normal 64248971834 3 150 - 450 HHCCT MCHC RBC Auto-mCnc 33.1g/dL Normal [id number] 30 - 36 HHCCT MCV RBC Auto 85fL Normal [id number] 80 - 100 HHCC T WBC num Bld Auto 11Thou/uL Normal [id number] 4 - 11 HHCCT RBC num Bld Auto 3.34Mil/uL Below low normal 689098892793 4 - 5.4 HHCCT Hgb Bld-mCnc 9.4g/dL Below low normal 534179036412 11.7 - 15.7 HHCCT Sodium SerPl-sCnc 130mmol/L Below low normal 908031112691 13 6 - 145 HHCCT CK SerPl-cCnc 1553U/L Critically high 668079232941 24 - 17 3 HHCCT POC Glucose 134mg/dL Above high normal 531915744211 65 - 99 HHCCT Chloride SerPl-sCnc 88mmol/L Below low normal 903458740650 98 - 107 HHCCT Glucose SerPl-mCnc 99mg/dL Normal [id number] 65 - 99 HHCCT GFR/BSA.pred SerPlBld TUX-VAW-ZsLDmf 90 Normal [id number] 59 - HHCCT Creat SerPl-mCnc 0.6mg/dL Normal [id number] 0.4 - 1.1 HHCCT BUN/Creat SerPl 13Ratio Normal [id number] 10 - 25 H HCCT Anion Gap Bld-sCnc 9 Normal [id number] 7 - 17 HHCCT Calcium SerPl-mCnc 8.4mg/dL Below low normal [id number] 8 .7 - 10.5 HHCCT CO2 SerPl-sCnc 28mmol/L Normal [id number] 22 - 33 HH CCT BUN SerPl-mCnc 8mg/dL Normal [id number] 8 - 21 HH CCT Sodium SerPl-sCnc 125mmol/L Below low normal [id number] 13 6 - 145 HHCCT Potassium SerPl-sCnc 2.5mmol/L Critically low [id number] 3 .4 - 5.3 HHCCT Globulin Ser Calc-mCnc 3.2g/dL Normal [id number] 1.5 - 3.9 HHCCT ALT SerPl-cCnc 18U/L Normal [id number] 10 - 50 HH CCT AST SerPl-cCnc 49U/L Normal [id number] 10 - 50 HH CCT Albumin SerPl-mCnc 3.2g/dL Below low normal [id number] 3 .5 - 5 HHCCT Bilirub Direct SerPl-mCnc 0.2mg/dL Normal [id number] 0 - 0.2 HHCCT Albumin/Glob SerPl 1Ratio Normal [id number] 1 - 3 HHCCT Prot SerPl-mCnc 6.4g/dL Normal [id number] 6.3 - 8.3 H HCCT Bilirub SerPl-mCnc 0.5mg/dL Normal [id number] 0.2 - 1 HHCCT ALP SerPl-cCnc 111U/L Normal [id number] 32 - 122 HH CCT Phosphate SerPl-mCnc 2.4mg/dL Below low normal [id number] 2.7 - 4.5 HHCCT Magnesium SerPl-mCnc 1.9mg/dL Normal [id number] 1.6 - 2.7 HHCCT Imm Granulocytes/leuk NFr Bld Auto 0.5% Normal 602824131633 HHCCT Lymphocytes/leuk NFr Bld Auto 15.4% Normal 632422755980 HHCCT Immature Platelet Fraction 8.9% Above high normal 692146015826 1.2 - 8.6 HHCCT Neutrophils/leuk NFr Bld Auto 78% Normal 550823455574 HHCCT Basophils/leuk NFr Bld Auto 0.1% Normal 115722916650 HHCCT Monocytes/leuk NFr Bld Auto 5.9% Normal [id number] HHCCT MCH RBC Qn Auto 28.1pg Normal [id number] 26 - 34 H HCCT Eosinophil/leuk NFr Bld Auto 0.1% Normal 809161202118 HHCCT MCHC RBC Auto-mCnc 33.2g/dL Normal [id number] 30 - 36 HHCCT MCV RBC Auto 85fL Normal [id number] 80 - 100 HHCC T RBC num Bld Auto 3.52Mil/uL Below low normal [id number] 4 - 5.4 HHCCT Hgb Bld-mCnc 9.9g/dL Below low normal [id number] 11.7 - 15.7 HHCCT Lymphocytes num Bld Auto 1.74Thou/uL Normal [id number] 1.5 - 4.5 HHCCT PMV Bld Auto 11fL Normal [id number] 7.5 - 12.[address] Monocytes num Bld Auto 0.67Thou/uL Normal [id number] 0.2 - 1.5 HHCCT Hct VFr Bld Auto 29.8% Below low normal [id number] 35 - 47 HHCCT Neutrophils num Bld Auto 8.79Thou/uL Above high normal 301612950789 2 - 7.5 HHCCT Basophils num Bld Auto 0.01Thou/uL Normal 617206964024 0 - 0.2 HHCCT Eosinophil num Bld Auto 0.01Thou/uL Normal [id number] 0 - 0.7 HHCCT nRBC num Bld Auto 0.02Thou/uL Normal [id number] 0 - 0.0 2 HHCCT nRBC/100 WBC Bld Auto-Rto 0.2/100WBC Above high normal [id number] 0 - 0.1 HHCCT Imm Granulocytes num Bld Auto 0.06Thou/uL Normal [id number] 0 - 0.1 HHCCT RDW RBC Auto-Rto 13.2% Normal [id number] 11.5 - 14. 5 HHCCT Platelet num Bld Auto 69Thou/uL Below low normal 06668264637 5 150 - 450 HHCCT WBC num Bld Auto 11.3Thou/uL Above high normal 690682256001 4 - 11 HHCCT SaO2 % BldA 99.9% Above high normal 411539468819 94 - 97 HHCCT pCO2, Arterial 39mmHG Normal 824083769924 32 - 45 HH CCT Total CO2, Arterial 30mmol/L Above high normal 637812914590 22 - 28 HHCCT P/F Ratio 403 Normal 612168822796 HHCCT pH, Arterial 7.49 Above high normal 957474703716 7.35 - 7.45 HHCCT Base excess BldA Calc-sCnc 5.5mmol/L Normal 794978419170 HHCCT O2 Ct VFr BldA Calc 14.3mL/dL Below low normal 231448082620 15.7 - 21.6 HHCCT MetHgb MFr Bld 0.5% Normal [id number] 0.4 - 1.5 HH CCT COHgb MFr Bld 1.7% Normal [id number] 0 - [address] Hgb Bld-mCnc 10.2g/dL Below low normal 150461081845 11.7 - 15.7 HHCCT pO2, Arterial 161mmHG Above high normal 036390562256 75 - 95 HHCCT Respiratory Information VENT 40% Normal 948749350361 HHCCT POC Glucose 113mg/dL Above high normal 918157019311 65 - 99 HHCCT Sodium SerPl-sCnc 123mmol/L Critically low 684293205006 136 - 145 HHCCT POC Glucose 118mg/dL Above high normal 698322655950 65 - 99 HHCCT POC Glucose 113mg/dL Above high normal 103076679391 65 - 99 HHCCT Sodium SerPl-sCnc 128mmol/L Below low normal 961390562573 13 6 - 145 HHCCT SaO2 % BldA 99.9% Above high normal 741495876604 94 - 97 HHCCT pCO2, Arterial 41mmHG Normal [id number] 32 - 45 HH CCT Total CO2, Arterial 32mmol/L Above high normal 855634705408 22 - 28 HHCCT P/F Ratio 565 Normal [id number] HHCCT pH, Arterial 7.49 Above high normal 938217406992 7.35 - 7.45 HHCCT Base excess BldA Calc-sCnc 7.1mmol/L Normal [id number] HHCCT O2 Ct VFr BldA Calc 15.8mL/dL Normal [id number] 15.7 - 21.6 HHCCT MetHgb MFr Bld 0.5% Normal [id number] 0.4 - 1.5 HH CCT COHgb MFr Bld 0.9% Normal [id number] 0 - [address] Hgb Bld-mCnc 11g/dL Below low normal [id number] 11.7 - 15.7 HHCCT pO2, Arterial 226mmHG Above high normal 549155169446 75 - 95 HHCCT Respiratory Information VENT 40% Normal 356994956420 HHCCT Magnesium SerPl-mCnc 2.3mg/dL Normal 240710893023 1.6 - 2.7 HHCCT Globulin Ser Calc-mCnc 3.3g/dL Normal [id number] 1.5 - 3.9 HHCCT ALT SerPl-cCnc 17U/L Normal [id number] 10 - 50 HH CCT AST SerPl-cCnc 41U/L Normal [id number] 10 - 50 HH CCT Albumin SerPl-mCnc 3.3g/dL Below low normal [id number] 3 .5 - 5 HHCCT Bilirub Direct SerPl-mCnc 0.2mg/dL Normal [id number] 0 - 0.2 HHCCT Albumin/Glob SerPl 1Ratio Normal [id number] 1 - 3 HHCCT Prot SerPl-mCnc 6.6g/dL Normal [id number] 6.3 - 8.3 H HCCT Bilirub SerPl-mCnc 0.6mg/dL Normal [id number] 0.2 - 1 HHCCT ALP SerPl-cCnc 117U/L Normal [id number] 32 - 122 HH CCT CK SerPl-cCnc 830U/L Critically high 375475913837 24 - 17 3 HHCCT Chloride SerPl-sCnc 86mmol/L Below low normal 046921046114 98 - 107 HHCCT Glucose SerPl-mCnc 97mg/dL Normal 671406470897 65 - 99 HHCCT GFR/BSA.pred SerPlBld ZAF-BYE-QdVEop 90 Normal [id number] 59 - HHCCT Creat SerPl-mCnc 0.6mg/dL Normal [id number] 0.4 - 1.1 HHCCT BUN/Creat SerPl 17Ratio Normal [id number] 10 - 25 H HCCT Anion Gap Bld-sCnc 15 Normal [id number] 7 - 17 HHCCT Calcium SerPl-mCnc 8.4mg/dL Below low normal [id number] 8 .7 - 10.5 HHCCT CO2 SerPl-sCnc 28mmol/L Normal [id number] 22 - 33 HH CCT BUN SerPl-mCnc 10mg/dL Normal [id number] 8 - 21 HH CCT Sodium SerPl-sCnc 129mmol/L Below low normal 780931782345 13 6 - 145 HHCCT Potassium SerPl-sCnc 3mmol/L Below low normal 194385077018 3.4 - 5.3 HHCCT Phosphate SerPl-mCnc 1.9mg/dL Below low normal [id number] 2.7 - 4.5 HHCCT SaO2 % BldA 100% Above high normal 280461258672 94 - 97 HHCCT pCO2, Arterial 32mmHG Normal [id number] 32 - 45 HH CCT Total CO2, Arterial 30mmol/L Above high normal 827279054507 22 - 28 HHCCT P/F Ratio 560 Normal [id number] HHCCT pH, Arterial 7.57 Above high normal 980709102073 7.35 - 7.45 HHCCT Base excess BldA Calc-sCnc 6.8mmol/L Normal 108113874574 HHCCT O2 Ct VFr BldA Calc 15.4mL/dL Below low normal 588711407244 15.7 - 21.6 HHCCT MetHgb MFr Bld 0.4% Normal [id number] 0.4 - 1.5 HH CCT COHgb MFr Bld 1.1% Normal 104524164826 0 - [address] Hgb Bld-mCnc 10.8g/dL Below low normal 160901406642 11.7 - 15.7 HHCCT pO2, Arterial 224mmHG Above high normal 103014237445 75 - 95 HHCCT Sodium SerPl-sCnc 125mmol/L Below low normal 497053105621 13 6 - 145 HHCCT Respiratory Information VENT 40% Normal 057046407516 HHCCT POC Glucose 104mg/dL Above high normal 474067485538 65 - 99 HHCCT Globulin Ser Calc-mCnc 3.1g/dL Normal [id number] 1.5 - 3.9 HHCCT ALT SerPl-cCnc 19U/L Normal 962558405840 10 - 50 HH CCT AST SerPl-cCnc Normal 600798815884 10 - 50 HH CCT Albumin SerPl-mCnc 3.3g/dL Below low normal [id number] 3 .5 - 5 HHCCT Bilirub Direct SerPl-mCnc Normal [id number] 0 - 0.2 HHCCT Albumin/Glob SerPl 1.1Ratio Normal 955037914735 1 - 3 HHCCT Prot SerPl-mCnc 6.4g/dL Normal [id number] 6.3 - 8.3 H HCCT Bilirub SerPl-mCnc 0.4mg/dL Normal [id number] 0.2 - 1 HHCCT ALP SerPl-cCnc 112U/L Normal [id number] 32 - 122 HH CCT Phosphate SerPl-mCnc 4.4mg/dL Normal [id number] 2.7 - 4.5 HHCCT Magnesium SerPl-mCnc 2.5mg/dL Normal [id number] 1.6 - 2.7 HHCCT CK SerPl-cCnc Normal 589285931897 24 - [address] Chloride SerPl-sCnc 82mmol/L Below low normal 741766802416 98 - 107 HHCCT Glucose SerPl-mCnc 112mg/dL Above high normal [id number] 65 - 99 HHCCT GFR/BSA.pred SerPlBld WNA-RIS-ElLOze 90 Normal [id number] 59 - HHCCT Creat SerPl-mCnc 0.6mg/dL Normal [id number] 0.4 - 1.1 HHCCT BUN/Creat SerPl 20Ratio Normal [id number] 10 - 25 H HCCT Anion Gap Bld-sCnc 14 Normal 563315956873 7 - 17 HHCCT Calcium SerPl-mCnc 7.8mg/dL Below low normal 414074714586 8 .7 - 10.5 HHCCT CO2 SerPl-sCnc 29mmol/L Normal [id number] 22 - 33 HH CCT BUN SerPl-mCnc 12mg/dL Normal 442571509330 8 - 21 HH CCT Sodium SerPl-sCnc 125mmol/L Below low normal 700229710676 13 6 - 145 HHCCT Potassium SerPl-sCnc 3.8mmol/L Normal 752684192226 3.4 - 5.3 HHCCT Troponin T SerPl-mCnc 238ng/L Critically high 304352420937 - 15 HHCCT Delta 12 Above high normal 236260721853 - 3 HHCCT Lactate SerPl-sCnc 1.5mmol/L Normal [id number] 0.5 - 1. 9 HHCCT SaO2 % BldA 100% Above high normal 570250936325 94 - 97 HHCCT pCO2, Arterial 43mmHG Normal [id number] 32 - 45 HH CCT Total CO2, Arterial 35mmol/L Above high normal 925883081622 22 - 28 HHCCT P/F Ratio 605 Normal 563244994924 HHCCT pH, Arterial 7.51 Above high normal 564849626849 7.35 - 7.45 HHCCT Base excess BldA Calc-sCnc 9.5mmol/L Normal [id number] HHCCT O2 Ct VFr BldA Calc 15.7mL/dL Normal [id number] 15.7 - 21.6 HHCCT MetHgb MFr Bld 0.6% Normal 408401714543 0.4 - 1.5 HH CCT COHgb MFr Bld 1.4% Normal 260204065615 0 - [address] Hgb Bld-mCnc 11g/dL Below low normal 912515941649 11.7 - 15.7 HHCCT pO2, Arterial 242mmHG Above high normal 010289946271 75 - 95 HHCCT POC Glucose 114mg/dL Above high normal 683735798557 65 - 99 HHCCT Respiratory Information VENT 40% Normal 110019221338 HHCCT Potassium SerPl-sCnc 2.8mmol/L Below low normal 360798017333 3.4 - 5.3 HHCCT Troponin T SerPl-mCnc 279ng/L Critically high 864493847105 - 15 HHCCT Delta 29 Above high normal 000979926414 - 3 HHCCT pO2 BldV 100mmHG Above high normal 794240645603 0 - 60 HHCCT pH BldV 7.53 Above high normal 962983349475 7.33 - 7. [address] VFr BldV Calc 15mL/dL Normal [id number] 7.2 - 1 7.2 HHCCT pCO2 BldV 41mmHG Normal 695419031049 35 - 50 H[facility]CT CO2 BldV-sCnc 35mmol/L Above high normal 212169219606 23 - 29 H[facility]CT Base excess BldA Calc-sCnc 10.3mmol/L Normal [id number] HHCCT SaO2 % BldV from pO2 98.4% Normal [id number] HHCCT MetHgb MFr Bld 0.4% Normal 509764246786 0.4 - 1.5 HH CCT COHgb MFr Bld 2.3% Above high normal 598081453459 0 - 2 H[facility]CT Hgb Bld-mCnc 11.1g/dL Below low normal 995014979933 11.7 - 15.7 HHCCT Sodium SerPl-sCnc 125mmol/L Below low normal 453170719114 13 6 - 145 [facility]CT Respiratory Information VENT 40% Normal [id number] HHCCT Result Normal [id number] - HHCCT POC Glucose 103mg/dL Above high normal 465667127447 65 - 99 HHCCT pO2 BldV 61mmHG Above high normal 170974657459 0 - 60 HHCCT pH BldV 7.61 Critically high 876908807646 7.33 - 7.[address] VFr BldV Calc 14.3mL/dL Normal 355448410957 7.2 - 1 7.2 HHCCT pCO2 BldV 35mmHG Normal 092323244690 35 - 50 HHCCT CO2 BldV-sCnc 37mmol/L Above high normal 720445973249 23 - 29 H[facility]CT Base excess BldA Calc-sCnc 13.2mmol/L Normal 696851492284 HHCCT SaO2 % BldV from pO2 93.3% Normal 054211527962 HHCCT MetHgb MFr Bld 0.5% Normal [id number] 0.4 - 1.5 HH CCT COHgb MFr Bld 2.1% Above high normal 361434585656 0 - 2 HHCCT Hgb Bld-mCnc 11.2g/dL Below low normal 280546905628 11.7 - 15.7 HHCCT Respiratory Information VENT 40% Normal 043975521678 HHCCT Phosphate SerPl-mCnc 1.2mg/dL Below low normal [id number] 2.7 - 4.5 HHCCT TSH SerPl DL<=0.005 mIU/L-aCnc 1.69mIU/L Normal [id number] 0.27 - 4.2 HHCCT Cortis SerPl-mCnc 27.1ug/dL Normal 820970129501 HHCCT CK SerPl-cCnc 613U/L Critically high 749974892679 24 - 17 3 HHCCT Urate SerPl-mCnc 6mg/dL Normal [id number] 2.5 - 7 HHCCT Troponin T SerPl-mCnc 250ng/L Critically high 613210922971 - 15 HHCCT Delta Normal 357806464267 - 3 HHCCT Chloride SerPl-sCnc 74mmol/L Below low normal 505909847686 98 - 107 HHCCT Glucose SerPl-mCnc 112mg/dL Above high normal 263758691843 65 - 99 HHCCT GFR/BSA.pred SerPlBld [id number] 90 Normal 387322616138 59 - HHCCT Creat SerPl-mCnc 0.8mg/dL Normal [id number] 0.4 - 1.1 HHCCT BUN/Creat SerPl 20Ratio Normal 024584791290 10 - 25 H HCCT Anion Gap Bld-sCnc 15 Normal [id number] 7 - 17 HHCCT Calcium SerPl-mCnc 7.6mg/dL Below low normal 118059078770 8 .7 - 10.5 HHCCT CO2 SerPl-sCnc 32mmol/L Normal 402875466474 22 - 33 HH CCT BUN SerPl-mCnc 16mg/dL Normal [id number] 8 - 21 HH CCT Sodium SerPl-sCnc 121mmol/L Critically low 497517092940 136 - 145 HHCCT Potassium SerPl-sCnc 1.8mmol/L Critically low [id number] 3 .4 - 5.3 HHCCT Procalcitonin SerPl EIA-mCnc 0.38ng/mL Above high normal 434210707434 - 0.09 HHCCT Lactate SerPl-sCnc 3.2mmol/L Critically high 608598776122 0. 5 - 1.9 HHCCT Osmolality Ur 270mOsm/Kg Normal 647363056105 40 - 1400 HH CCT Osmolality SerPl 258mOsm/Kg Below low normal 559977791436 28 5 - 295 H[facility]CT Potassium Ur-sCnc 59mmol/L Normal 847363598677 HHCCT Chloride Ur-sCnc 22mmol/L Normal 375747308472 HHCCT Sodium Ur-sCnc 35mmol/L Normal 688396487444 HH CCT pO2 BldV 131mmHG Above high normal 104249140740 0 - 60 HHCCT pH BldV 7.67 Critically high 033834040259 7.33 - 7.43 HHCCT pCO2 BldV 31mmHG Below low normal 668031712420 35 - 50 HHCCT CO2 BldV-sCnc 38mmol/L Above high normal 800898952879 23 - 29 HHCCT Base excess BldA Calc-sCnc 14.3mmol/L Normal 455403487704 HHCCT POC Glucose 125mg/dL Above high normal 248872499491 65 - 99 H[facility]CT Respiratory Information VENT 40% Normal 728074034892 HHCCT WBC num/area UrnS HPF 4perhpf Normal 311748925061 0 - 4 HHCCT RBC num/area UrnS HPF 12perhpf Above high normal 5064325608 13 0 - 4 HHCCT Ketones Ur Strip-mCnc Normal [id number] - HHCCT Prot Ur Strip-mCnc Abnormal 967426253767 - HHCCT Glucose Ur Strip-mCnc 0mg/dL Normal 132322272351 0 - 9 9 HHCCT Nitrite Ur Ql Strip Normal [id number] - [facility] Leukocyte esterase Ur Ql Strip Abnormal [id number] - [facility] Bilirub Ur Strip-mCnc Normal [id number] - [facility] Sp Gr Ur Strip 1.019 Normal [id number] 1.003 - 1.03 [facility] pH Ur Strip 8 Normal [id number] 5 - 8 [facility] Color Ur Normal [id number] [facility] Clarity Ur Normal [id number] [facility] Hgb Ur Ql Strip Abnormal [id number] - H [facility] Sodium SerPl-sCnc 117mmol/L Critically low [id number] 136 - 145 [facility] Chloride SerPl-sCnc 67mmol/L Below low normal [id number] 98 - 107 [facility] Glucose SerPl-mCnc 158mg/dL Above high normal [id number] 65 - 99 [facility] GFR/BSA.pred SerPlBld MGV-TYO-AbKIhn 90 Normal [id number] 59 - [facility] Creat SerPl-mCnc 0.7mg/dL Normal [id number] 0.4 - 1.1 [facility] BUN/Creat SerPl 27Ratio Above high normal [id number] 10 - 25 [facility] Anion Gap Bld-sCnc 16 Normal 7 - 17 [facility] Calcium SerPl-mCnc 7.9mg/dL Below low normal 8 .7 - 10.5 [facility] CO2 SerPl-sCnc 34mmol/L Above high normal 22 - 33 [facility] BUN SerPl-mCnc 19mg/dL Normal 8 - 21 HH CCT Potassium SerPl-sCnc 3.4mmol/L Normal [id number] 3.4 - 5.3 [facility] B-OH-Butyr SerPl-sCnc 0.06mmol/L Normal [id number] - 0. 28 [facility] Salicylates SerPl-mCnc 1mg/dL Below low normal [id number] 15 - 30 [facility] Lipase SerPl-cCnc 13U/L Normal 13 - 60 [facility] Globulin Ser Calc-mCnc 3.2g/dL Normal 1.5 - 3.9 [facility] ALT SerPl-cCnc 19U/L Normal [id number] 10 - 50 HH CCT AST SerPl-cCnc Normal [id number] 10 - 50 [facility] CCT Albumin SerPl-mCnc 3.9g/dL Normal [id number] 3.5 - 5 [facility] Bilirub Direct SerPl-mCnc Normal [id number] 0 - 0.2 [facility] Albumin/Glob SerPl 1.2Ratio Normal 1 - 3 [facility] Prot SerPl-mCnc 7.1g/dL Normal [id number] 6.3 - 8.3 [facility] Bilirub SerPl-mCnc 0.8mg/dL Normal [id number] 0.2 - 1 [facility] ALP SerPl-cCnc 133U/L Above high normal [id number] 32 - 122 [facility] Trigl SerPl-mCnc 311mg/dL Above high normal [id number] - 150 [facility] CK SerPl-cCnc Normal 24 - [address] Magnesium SerPl-mCnc 3mg/dL Above high normal [id number] 5 1.6 - 2.7 [facility] APAP SerPl-mCnc 5mg/L Below low normal [id number] 10 - 30 [facility] Lactate SerPl-sCnc 4.5mmol/L Critically high 0. 5 - 1.9 [facility] Imm Granulocytes/leuk NFr Bld Auto 0.9% Normal [id number] [facility] Lymphocytes/leuk NFr Bld Auto 8.7% Normal [id number] [facility] PMV Bld Auto 11.3fL Normal [id number] 7.5 - 12.[address] Monocytes num Bld Auto 0.84Thou/uL Normal 0.2 - 1.5 [facility] Hct VFr Bld Auto 34.3% Below low normal 35 - 47 [facility] Neutrophils num Bld Auto 11.02Thou/uL Above high normal [id number] 2 - 7.5 [facility] Neutrophils/leuk NFr Bld Auto 83.8% Normal [id number] [facility] Basophils/leuk NFr Bld Auto 0.1% Normal [id number] [facility] Basophils num Bld Auto 0.01Thou/uL Normal 0 - 0.2 [facility] Monocytes/leuk NFr Bld Auto 6.4% Normal [facility] Eosinophil num Bld Auto 0.01Thou/uL Normal 0 - 0.7 [facility] MCH RBC Qn Auto 28.1pg Normal [id number] 26 - 34 [facility] nRBC num Bld Auto 0.04Thou/uL Above high normal 0 - 0.02 [facility] Eosinophil/leuk NFr Bld Auto 0.1% Normal [facility] nRBC/100 WBC Bld Auto-Rto 0.3/100WBC Above high normal 0 - 0.1 [facility] Imm Granulocytes num Bld Auto 0.12Thou/uL Above high normal 0 - 0.1 [facility] RDW RBC Auto-Rto 12.7% Normal 11.5 - 14. 5 [facility] Platelet num Bld Auto 153Thou/uL Normal 150 - 450 [facility] MCHC RBC Auto-mCnc 34.7g/dL Normal 30 - 36 [facility] MCV RBC Auto 81fL Normal 80 - 100 [facility] T WBC num Bld Auto 13.1Thou/uL Above high normal 4 - 11 [facility] RBC num Bld Auto 4.24Mil/uL Normal 4 - 5.4 [facility] Hgb Bld-mCnc 11.9g/dL Normal 11.7 - 15.7 HH CCT Lymphocytes num Bld Auto 1.14Thou/uL Below low normal 1.5 - 4.5 [facility] pO2 BldV 120mmHG Above high normal 0 - 60 [facility] pH BldV 7.58 Above high normal 7.33 - 7. 43 [facility] pCO2 BldV 42mmHG Normal 35 - 50 [facility] CO2 BldV-sCnc 41mmol/L Above high normal 23 - 29 [facility] Base excess BldA Calc-sCnc 15.6mmol/L Normal [facility] Glucose 143mg/dL Above high normal [id number] 65 - 99 [facility] Respiratory Information OTHER Normal [facility]
== END 2024-10-06 12:48 | disposition home or self-care (01) ==
LOC: HO.MRI 12:47
PROVIDERS: Visit Provider Optometrist
DX: H54.7 Unspecified visual loss (principal)
CPT/HCPCS: 70543; 70553; A9585

== ENCOUNTER 2024-12-09 22:09 | Inpatient (IN) | payer OTHER, SELFPAY ==
[2024-12-09] VITALS (7 sets, daily range): BP systolic 120–154; BP diastolic 73–115; PULSE 86–119; RESP 23–28; TEMP 37.4; O2SAT 93–99; BMI 19.1
--- NOTE | 2024-12-09 22:22 | PC.NURSE ---
pt medicated with 2mg ativan, 50mg benadryl, 5mg haldol IM per MD Arreaga verbal orders
[2024-12-09] MEDS: Haloperidol Lactate 5 MG/ML VIAL IM (22:33)
[2024-12-09] MEDS: diphenhydrAMINE HCL 50 MG/ML VIAL IM (22:34)
[2024-12-09] MEDS: LORazepam 2 MG/ML VIAL IM (22:34)
--- OUTSIDE RECORDS SUMMARY | 2024-12-09 22:38 | XMS_ITS | Clinical Summary ---
Author Organization [facility] [place] [address] Care Team Providers Care Drum Carrier Name Role Phone Rupert Flores MD Primary Care Pr ovider Allergies Active Allergy Reactions Criticality Noted Date Comments Cat Dander Itching 05/17/2014 Dog Dander Itching 05/17/2014 Other Itching 05/17/2014 seasonal Medications Medication Sig Dispensed Refills Start Date End Date Status folic acid (FOLVITE) 1 mg tablet Take 1 Tablet by mouth daily. 07/12/2024 Active magnesium oxide (MAG-OX) 400 mg (241.3 elemental magnesium) tablet Take 1 Tablet by mouth daily. 07/12/2024 Active multivitamin (MULTIPLE VITAMINS ORAL) Take 1 Tablet by mouth daily. 07/12/2024 Active omeprazole (PriLOSEC) [address] capsule Take 1 Capsule by mouth daily. 07/12/2024 Active senna 8.6 mg tablet 04/07/2024 Active sucralfate (CARAFATE) 1 gram tabletIndication s:Duodenitis without bleeding TAKE 1 TABLET BY MOUTH FOUR TIMES A DAY 360 tablet 1 09/29/2024 Active sertraline (ZOLOFT) 50 mg tablet Take 2 tablets (100 mg total) by mouth 1 (one) time each day for 14 days. 28 each 11/17/2024 Active naltrexone (DEPADE) 50 mg tablet Take 1 tablet (50 mg total) by mouth 1 (one) time each day. 09/21/2024 Active topiramate (TOPAMAX) 25 mg tablet Take 1 tablet (25 mg total) by mouth at bedtime. 30 each 2 11/28/2024 Active QUEtiapine (SEROquel) 50 mg tablet Take 1 tablet (50 mg total) by mouth at bedtime. 30 each 2 11/28/2024 Active hydrOXYzine HCL (ATARAX) 25 mg tablet Take 2 tablets (50 mg total) by mouth 2 (two) times a day if needed for anxiety. 2 tablets 11/28/2024 Active levETIRAcetam (KEPPRA) 750 mg tablet Take 1 tablet (750 mg total) by mouth 2 (two) times a day. 60 tablet 11/28/2024 Active hydrOXYzine HCL (ATARAX) 25 mg tablet Take 1-2 Tablets by mouth at bedtime as needed for Anxiety. 07/12/2024 5 Discontinued(Reor tonya) QUEtiapine (SEROquel) 50 mg tablet Take 1 Tablet by mouth at bedtime as needed (insomnia). 07/12/2024 5 Discontinued(Reor tonya) topiramate (TOPAMAX) 25 mg tablet Take 1 Tablet by mouth at bedtime for 90 days. 07/12/2024 5 Discontinued(Reor tonya) sertraline (ZOLOFT) 50 mg tablet Take 2 tablets (100 mg total) by mouth 1 (one) time each day. 60 each 10/13/2024 5 Discontinued(Reor tonya) levETIRAcetam (KEPPRA) 750 mg tablet Take 1 tablet (750 mg total) by mouth 2 (two) times a day. 09/23/2024 5 Discontinued(Reor tonya) hydrOXYzine HCL (ATARAX) 25 mg tablet Take 1 tablet (25 mg total) by mouth at bedtime for 14 days. 14 each 11/17/2024 5 Discontinued levETIRAcetam (KEPPRA) 750 mg tablet Take 1 tablet (750 mg total) by mouth 2 (two) times a day for 14 days. 28 each 11/17/2024 5 Discontinued(Reor tonya) QUEtiapine (SEROquel) 50 mg tablet Take 1 tablet (50 mg total) by mouth at bedtime for 14 days. 14 each 11/17/2024 Discontinued(Reor tonya) Active Problems Problem Noted Date Diagnosed Date Chronic migraine without aur a without status migrainosus, not intractable 07/12/2024 Duodenitis determined by biopsy 07/12/2024 Fatty liver 07/12/2024 Seizure disorder 07/12/2024 Glaucoma 02/03/2023 Subclinical hypothyroidism 02/03/2023 Insomnia 09/22/2021 Alcohol abuse 02/22/2019 Overview (09/05/2024): Detox 02/17 [place] Anxiety and depression 02/22/2019 Scoliosis 09/04/2010 Attention deficit hyperactivity disorder (ADHD) 12/29/2005 Encounters Date Type Department Care Team Description 11/28/2024 12:30 PM EST Office Visit Adult [address] [phone] Smita Rabago PA Annual physical exam (Primary Dx); Seizure disorder (CMS/HCC); Anxiety and depression; Insomnia, unspecified type; Chest pain, unspecified type 11/17/2024 Telephone Adult Medicine [address] [phone] Rupert Flores MD Panic Attack 11/15/2024 Telephone Adult Medicine [address] [phone] Natalie Ortiz, RN 11/15/2024 Telephone Adult Medicine [address] [phone] Natalie Ortiz, RN 11/15/2024 Nurse Triage Adult [address] [phone] Rupert Flores MD 11/14/2024 Telephone Adult Medicine [address] [phone] Padmini Maradiaga MD Med Refill from Last 3 Months Immunizations Name Administration Dates Next Due DTP 10/22/1994, 2,04/04/1991,1990,1990 MScG-[id number]-OFO (Pentacel) 2mo to less than 5yo 01/08/1992,04/04/1991,02/01/1991,1990 HPV, Quadrivalent 11/29/2019,05/17/2014,08/31/20 08 Hepatitis B (Jqzjqre-S-Xzbur , Recombivax HB-Adult) 19yo and older 01/25/2003,08/10/2002 MMR, measles mumps and rubel la Live (Priorix; M-M-R II) 12mo and older 10/22/1994,01/08/1992 OPV 10/22/1994, 2,02/01/1991,1990 Td Tetanus diptheria (Tdvax) 7yo and older 08/10/2002 Td, Unspecified 08/10/2002 Tdap Tetanus diptheria acell ular pertussis (Boostrix; Adacel) 7yo and older 08/04/2020,04/11/2013 Varicella live (Varivax) 12m o and older 10/13/1995 Surgical History Surgery Date Site/Laterality Comments EYE SURGERY 2006, 2009 PROCEDURE: HISTORICAL EYE SURGERY CATARACT EXTRACTION Left PROCEDURE: HISTORICAL CATARACT REMOVAL ESOPHAGOGASTRODUODENOSCOPY PROCEDURE: CO ESOPHAGOGASTRODUODENOSCOPY TRANSORAL DIAGNOSTIC; COMMENT: Grade D esophagitis with refluz with no bleeding seen at 35cm from the incisors in the GE junction compatible with esophagitis. cannot rule ot doherty's esophagus. esophageal hiatal hernia; normal duodenum and somtach Medical History Medical History Date Comments Scoliosis 06/03 DX:Scoliosis Depression DX:Depression Detached retina, left 2004, 2006 DX:Detache d retina, left; COMMENT: repair Fatty liver 07/12/2024 Glaucoma 02/03/2023 Seizure disorder (CMS/HCC) 07/12/2024 Family History Medical History Relation Name Comments Breast cancer Father's side Paternal grea t aunt (Dad's mom's sister), unsure age Other cancer Maternal Grandfather skin, a live Other cancer Maternal Grandmother skin, a live Lung cancer Paternal Grandmother with me ts to brain Lung cancer Uncle pat smoker, 70s, wi th mets Colon cancer Neg Hx Ovarian cancer Neg Hx Prostate cancer Neg Hx Uterine cancer Neg Hx Relation Name Status Comments Daughter Audsymone Alive Father Alive age 50 in good health Father's side Maternal Grandfather in good health Maternal Grandmother Alive in good health-BLADDER CA Mother Alive age 54 in good health Paternal Grandfather Alive in good health Paternal Grandmother brain c ancer Sister Alive age 17 in good health Uncle pat Social History Tobacco Use Types Packs/Day Years Used Date Smoking Tobacco: Never Smokeless Tobacco: Never Tobacco Cessation:Counseling Given: Not Answered Alcohol Use Standard Drinks/Week Comments Not Currently 0 (1 standard drink = 0.6 oz pur e alcohol) Housing Instability Answer Date Recorde d Are you worried that in the next 2 months you may not have stable housing? No 11/28/2024 Food Access & Nutrition Answer Date Rec orded Do you have access to a vari ety of food including fruits and vegetables? Yes 11/28/2024 Health Literacy Answer Date Recorded How often do you need to hav e someone help you when you read instructions, pamphlets, or other written material from your doctor or pharmacy? Never 11/28/2024 Caregiver: How often do you need to have someone help you when you read instructions, pamphlets, or other written material from your doctor or pharmacy? Not on file 11/28/2024 Financial Risk Answer Date Recorded How hard is it for you to pa y for the very basics like food, housing, medical care, and air conditioning / heating? Not very hard 11/28/2024 Transportation Answer Date Recorded Has the lack of transportati on kept you from meetings, work, or from getting things needed for daily living? No Has the lack of transportati on kept you from medical appointments or from getting medications? No 11/28/2024 Social Isolation Answer Date Recorded How often do you feel lonely or isolated from those around you? Sometimes 11/28/2024 Food Risk Answer Date Recorded Within the past 12 months we worried whether our food would run out before we got money to buy more. Never true 11/28/2024 Within the past 12 months th e food we bought just didn't last and we didn't have money to get more. Never true 11/28/2024 Education Answer Date Recorded Do you think completing more education or training, like finishing a GED, going to college, or learning a trade, would be helpful for you? Yes 11/28/2024 Employment and Income Answer Date Recor ded During the last four weeks, have you been actively looking for work? No 11/28/2024 Living Situation Answer Date Recorded What is your living situation? 0 11/28/2024 Sex and Gender Information Value Date Recorded Sex Assigned at Not on file Gender Identity Not on file Sexual Orientation Not on file Job Start Date Occupation Industry Not on file Not on file Not on file Obstetrics History Last Filed Vital Signs Vital Sign Reading Time Taken Comments Blood Pressure 86/52 11/28/2024 12:15 PM EST Pulse 81 11/28/2024 12:15 PM EST Temperature 36.6 ??C (97.8 ??F) 11/28/2024 12:[address] Respiratory Rate 14 11/28/2024 12:15 PM EST Oxygen Saturation 96% 11/28/2024 12:15 PM EST Inhaled Oxygen Concentration - - Weight 55.3 kg (122 lb) 11/28/2024 12:15 PM EST Height 165.1 cm (5' 5 ) 11/28/2024 12:15 PM EST Body Mass Index 20.3 11/28/2024 12:15 PM EST Plan of Treatment Upcoming Encounters Date Type Department Care Team (Late st Contact Info) Description 12/26/2024 9:15 AM EST Ancillary Procedure [facility] [address] [facility] [address] [place] [address] 01/12/2025 9:00 AM EDT Consult [facility] [address] [facility] [place] [address] [place] [phone] So Malcolm MD [address] [facility] [address] [place] [phone] Health Maintenance Due Date Last Done Comments Pneumococcal Vaccine: Pediatrics (0 to 5 Years) and At-Risk Patients (6 to 64 Years) (1 of 2 - PCV) 1996 Hepatitis A Vaccines (1 of 2 - Risk 2-dose series) 2009 COVID-19 Vaccine ( - 2024-25 season) 2024 Cervical Cancer Screening: HPV 11/29/2024 11/29/2019 Influenza Vaccine (#1) 2025 Postp oned from 07/02/2024 (Patient Refused) Depression Screening 11/28/2025 11/28/2024, 07/12/20 24 Social Influencers of Health Screening 11/28/2025 11/28/2024 Cholesterol Screening (Lipid Panel) 07/12/2029 07/12/2024, 07/12/2024 DTaP,Tdap,and Td Vaccines (10 - Td or Tdap) 08/04/2030 08/04/2020, 04/11/2013, 08/10/2002, Additional history exists HIB Vaccines Completed 01/08/1992, 01/1991, 02/01/1991, Additional history exists IPV Vaccines Completed 10/22/1994, 04/02, 01/08/1992, Additional history exists MMR Vaccines Completed 10/22/1994, 01/08/1992 Varicella Vaccines Aged Out 10/13/1995 No longer eligible based on patient's age to complete this topic Hepatitis B Vaccines Completed 01/25/2003, 08/10/20 02 HIV Screening Completed 03/06/2015 Hepatitis C Screening Completed 03/06/2015 HPV Vaccines Completed 11/29/2019, 05/01, 08/31/2008 Meningococcal ACWY Vaccine Aged Out N o longer eligible based on patient's age to complete this topic RSV Immunization Patients Under 20 months Aged Out No longer eligible based on patient's age to complete this topic Procedures Procedure Name Priority Date/Time Associated Diagnosis Comments DEPRESSION SCREENING Routine 07/12/2024 LIPID PANEL Routine 07/12/2024 HPV Routine 11/29/2019 HEPATITIS C SCREENING Routine 03/06/2015 HIV SCREENING Routine 03/06/2015 from Last 3 Months or Most Recently Relevant to Health Maintenance Results * Depression Screening (07/12/2024) Depression Screening abstracted Historical Provider MD ANA SCHULTZ E * Lipid panel (07/12/2024) [facility] LDL/HDL Ratio 2 0 - 4 Triglycerides 65 0 - 150 mg/dL Cholesterol 166 0 - 200 mg/dL HDL 72 40 mg/dL LDL Cholesterol 81 0 - 100 mg/dL Blood Venous blood specimen / Unknown Historical Provider LAB BLOOD ORDERAB [facility] Cervical Cancer Screening: HPV (11/29/2019) [facility] Cervical Cancer Screening: HPV no interpretation , abstracted [facility] * HIV Screening (03/06/2015) [facility] HIV Screening abstracted [facility] * Hepatitis C Screening (03/06/2015) [facility] Hepatitis C Screening abstracted Historical Provider [facility] from Last 3 Months or Most Recently Relevant to Health Maintenance Care Teams Drum Carrier Relationship Specialty Start Date End Date Rupert Flores MD [address], [place] PCP - General Internal Medicine 05/17/22
--- OUTSIDE RECORDS SUMMARY | 2024-12-09 22:38 | XMS_ITS | Encounter Summary ---
Author Organization [facility] Address [address] [place] [address] Care Team Providers Care Junior Project Coordinator Name Role Phone Violet Tyson MD Primary Care Provider Rupert Wahl MD Primary Care Provider + Encounter Details Date Type Department Care Team Description 02/11/2017 Hospital Medical Records [address] [place] [id number] [facility] [address] [place], [place] [id number] Social History Tobacco Use Types Packs/Day Years Used Date Smoking Tobacco: Never Smokeless Tobacco: Never Alcohol Use Standard Drinks/Week Comments Not Currently 0 (1 standard drink = 0.6 oz pure alcohol) detox 01/2019; looking for detox 04/2021 Alcohol Habits Answer Date Recorded How often do you have a drink containing alcohol ? Never 01/22/2021 How many drinks containing a lcohol do you have on a typical day when you are drinking? Not asked How often do you have six or more drinks on one occasion? Not asked Financial Resource Strain Answer Date R ecorded How hard is it for you to pa y for the very basics like food, housing, medical care, and heating? Not very hard 01/22/2021 Food Insecurity Answer Date Recorded Within the past 12 months, y ou worried that your food would run out before you got money to buy more. Never true 01/22/2021 Within the past 12 months, t he food you bought just didn't last and you didn't have money to get more. Never true 01/22/2021 Transportation Needs Answer Date Record ed In the past 12 months, has l ack of transportation kept you from medical appointments or from getting medications? No 12/31 In the past 12 months, has l ack of transportation kept you from meetings, work, or getting things needed for daily living? No 01/22/2021 Sex Assigned at Date Recorded Not on file Job Start Date Occupation Industry Not on file Not on file Not on file documented as of this encounter Plan of Treatment Not on file documented as of this encounter Visit Diagnoses Not on filedocumented in this encounter Care Teams Junior Project Coordinator Relationship Specialty Start Date End Date Violet Tyson MD PCP - General Internal Medicine 08/29/14 05/16/22 Rupert Flores MD [address] [place] [id number] PCP - General Internal Medicine 05/17/22 documented as of this encounter
--- OUTSIDE RECORDS SUMMARY | 2024-12-09 22:38 | XMS_ITS | Clinical Summary ---
Author Organization [facility] Address [address] [place] [address] Care Team Providers Care Emt Driver Name Role Phone Unavailable Primary Care Provider Unavailabl e Allergies No known active allergies Medications Medication Sig Dispensed Refills Start Date End Date Status levETIRAcetam (KEPPRA) 750 MG tabletIndications:Sei zure (HCC) Take 1 tablet (750 mg total) by mouth 2 (two) times a day. 60 tablet 09/21/2024 Active naltrexone (REVIA) 50 MG tabletIndications:Alc ohol abuse Take 1 tablet (50 mg total) by mouth daily. 30 tablet 09/21/2024 Active Active Problems Problem Noted Date Diagnosed Date Seizure 09/16/2024 Encounters Date Type Department Care Team Description 09/19/2024 Travel 09/16/2024 6:05 PM EST - 09/21/2024 3:55 PM EST Hospital Encounter [facility] [address] [place] [id number] Adeel Nunez DO Holub, Meredith S, MD Perkins, Michael E, MD Madhusudana, MD Aakash Gomez, Isac Murillo DO Acute respiratory failure (HCC) (Primary Dx); Witnessed seizure-like activity (HCC); Seizure (HCC); Acute hyponatremia; Stupor; Alcohol abuse Discharge Disposition: Home or Self Care 09/16/2024 5:42 PM EST - 09/16/2024 6:04 PM EST Hospital Encounter [facility] [address] [place] [address] Dank Gerardo MD Discharge Disposition: Home or Self Care 09/16/2024 Travel from Last 3 Months Social History Tobacco Use Types Packs/Day Years Used Date Smoking Tobacco: Never Assessed [facility] Utilities Answer Date Recorded In the past 12 months has th e [employer], gas, oil, or water [employer] threatened to shut off services in your home? Patient unable to answer 09/18/2024 AUDIT-C Answer Date Recorded Q1: How often do you have a drink containing alcohol? 4 or more times a week 09/16/2024 Q2: How many drinks containi ng alcohol do you have on a typical day when you are drinking? 5 or 6 Q3: How often do you have si x or more drinks on one occasion? Monthly 09/16/2024 Hunger Vital Sign Answer Date Recorded Within the past 12 months, y ou worried that your food would run out before you got the money to buy more. Patient unable to answer 09/18/2024 Within the past 12 months, t he food you bought just didn't last and you didn't have money to get more. Patient unable to answer 09/18/2024 PRAPARE - Transportation Answer Date Re corded In the past 12 months, has l ack of transportation kept you from medical appointments or from getting medications? Patient unable to answer 09/18/2024 In the past 12 months, has l ack of transportation kept you from meetings, work, or from getting things needed for daily living? Patient unable to answer 09/18/2024 Housing Stability Vital Sign Answer Ihsan e Recorded In the last 12 months, was t here a time when you were not able to pay the mortgage or rent on time? Patient unable to answer 09/18/2024 In the past 12 months, how m any times have you moved where you were living? 1 09/18/2024 At any time in the past 12 m [facility], were you homeless or living in a group home (including now)? Patient unable to answer 09/18/2024 Sex and Gender Information Value Date Recorded Sex Assigned at Female 09/16/2024 9:22 PM EST Gender Identity Female 09/16/2024 9:22 PM EST Sexual Orientation Heterosexual (straight) 09/16 9:22 PM EST Last Filed Vital Signs Vital Sign Reading Time Taken Comments Blood Pressure 128/67 09/21/2024 1:40 PM EST Pulse 81 09/21/2024 4:17 AM EST Temperature 36.8 ??C (98.2 ??F) 09/21/2024 1:40 PM ES T Respiratory Rate 18 09/21/2024 1:40 PM EST Oxygen Saturation 97% 09/21/2024 1:40 PM EST Inhaled Oxygen Concentration - - Weight 55.2 kg (121 lb 11.1 oz) 024 11:49 PM EST Height 165.1 cm (5' 5 ) 09/20/2024 2:45 PM EST Body Mass Index 20.25 09/16/2024 11:49 PM EST Plan of Treatment Health Maintenance Due Date Last Done Comments Hepatitis C Virus Screening 1990 DTaP/Tdap/Td Vaccines (1 - Tdap) 2009 Hepatitis B Vaccines (1 of 3 - 19+ 3-dose series) 2009 Pap Smear (Ages 21-65) 2011 Influenza Vaccine 06/01/2024 COVID-19 Vaccine ( - 2023-2 5 season) 2024 HIV Screening Completed 09/17/2024 HPV Vaccines Aged Out No longer eligi ble based on patient's age to complete this topic Pneumococcal Vaccine: Pediat summer (0-5 Years) and At-Risk Patients (6 to 49 Years) Aged Out No longer eligible b ased on patient's age to complete this topic Procedures Procedure Name Priority Date/Time Associated Diagnosis Comments SODIUM Routine 09/21/2024 2:41 PM EST PHOSPHORUS Routine 09/21/2024 7:48 AM EST MAGNESIUM Routine 09/21/2024 7:48 AM EST BASIC METABOLIC PANEL Routine 09/21/2024 7:48 AM EST COMPLETE BLOOD COUNT, WITHOUT DIFFERENTIAL Routine 09/21/2024 7:48 AM EST SODIUM Routine 09/21/2024 1:18 AM EST CREATINE KINASE (CK) Routine 09/21/2024 1:18 AM EST CREATINE KINASE (CK) Routine 09/20/2024 9:51 PM EST SODIUM Routine 09/20/2024 3:10 PM EST CREATINE KINASE (CK) Routine 09/20/2024 9:16 AM EST SODIUM Routine 09/20/2024 9:16 AM EST POCT GLUCOSE, FINGERSTICK Routine 09/20/2024 8:13 AM EST POCT GLUCOSE, FINGERSTICK Routine 09/20/2024 3:52 AM EST CREATINE KINASE (CK) Routine 09/20/2024 2:17 AM EST PHOSPHORUS Routine 09/20/2024 2:17 AM EST MAGNESIUM Routine 09/20/2024 2:17 AM EST BASIC METABOLIC PANEL Routine 09/20/2024 2:17 AM EST COMPLETE BLOOD COUNT, WITHOUT DIFFERENTIAL Routine 09/20/2024 2:17 AM EST POCT GLUCOSE, FINGERSTICK Routine 09/19/2024 11:35 PM EST SODIUM Routine 09/19/2024 8:40 PM EST POCT GLUCOSE, FINGERSTICK Routine 09/19/2024 8:13 PM EST SODIUM Routine 09/19/2024 4:43 PM EST POCT GLUCOSE, FINGERSTICK Routine 09/19/2024 4:42 PM EST PHOSPHORUS Routine 09/19/2024 12:41 PM EST MAGNESIUM Routine 09/19/2024 12:41 PM EST BASIC METABOLIC PANEL Routine 09/19/2024 12:41 PM EST POCT GLUCOSE, FINGERSTICK Routine 09/19/2024 12:06 PM EST VAS VENOUS DUPLEX ARM (DVT)-BILATERAL Routine 09/19/2024 11:08 AM EST VAS VENOUS DUPLEX LEG (DVT)-BILATERAL Routine 09/19/2024 11:03 AM EST CREATINE KINASE (CK) Routine 09/19/2024 10:21 AM EST HEPARIN PF4 AB SCREEN REFLEX SEROTONIN RELEASE ASSAY HITAB Routine 09/19/2024 10:21 AM EST SODIUM Routine 09/19/2024 10:21 AM EST ECG 12-LEAD Routine 09/19/2024 9:11 AM EST CREATINE KINASE (CK) Routine 09/19/2024 8:19 AM EST SODIUM Routine 09/19/2024 8:19 AM EST POCT GLUCOSE, FINGERSTICK Routine 09/19/2024 7:44 AM EST SODIUM Routine 09/19/2024 4:22 AM EST POCT GLUCOSE, FINGERSTICK Routine 09/19/2024 3:02 AM EST EEG LONG-TERM MONITORING Routine 09/19/2024 1:51 AM EST CREATINE KINASE (CK) Routine 09/19/2024 12:16 AM EST PHOSPHORUS Routine 09/19/2024 12:16 AM EST MAGNESIUM Routine 09/19/2024 12:16 AM EST BASIC METABOLIC PANEL Routine 09/19/2024 12:16 AM EST COMPLETE BLOOD COUNT, WITHOUT DIFFERENTIAL Routine 09/19/2024 12:16 AM EST POCT GLUCOSE, FINGERSTICK Routine 09/18/2024 11:05 PM EST SODIUM Routine 09/18/2024 9:05 PM EST POCT GLUCOSE, FINGERSTICK Routine 09/18/2024 7:11 PM EST EXTUBATION Routine 09/18/2024 4:44 PM EST CREATINE KINASE (CK) Routine 09/18/2024 3:56 PM EST SODIUM Routine 09/18/2024 3:56 PM EST POCT GLUCOSE, FINGERSTICK Routine 09/18/2024 3:55 PM EST POCT GLUCOSE, FINGERSTICK Routine 09/18/2024 3:28 PM EST CREATINE KINASE (CK) Routine 09/18/2024 11:19 AM EST PHOSPHORUS Routine 09/18/2024 11:19 AM EST MAGNESIUM Routine 09/18/2024 11:19 AM EST BASIC METABOLIC PANEL Routine 09/18/2024 11:19 AM EST POCT GLUCOSE, FINGERSTICK Routine 09/18/2024 11:10 AM EST VANCOMYCIN LEVEL-RANDOM Timed 09/18/2024 9:55 AM EST SODIUM Routine 09/18/2024 8:51 AM EST EEG LONG-TERM MONITORING STAT 09/18/2024 8:25 AM EST POCT GLUCOSE, FINGERSTICK Routine 09/18/2024 7:36 AM EST CREATINE KINASE (CK) Routine 09/18/2024 6:00 AM EST COMPLETE BLOOD COUNT, WITHOUT DIFFERENTIAL Routine 09/18/2024 6:00 AM EST SODIUM Routine 09/18/2024 4:50 AM EST POCT GLUCOSE, FINGERSTICK Routine 09/18/2024 2:49 AM EST CREATINE KINASE (CK) Routine 09/18/2024 12:30 AM EST HEPATIC FUNCTION PANEL Routine 12:30 AM EST COMPLETE BLOOD COUNT, WITH DIFFERENTIAL Routine 09/18/2024 12:30 AM EST PHOSPHORUS Routine 09/18/2024 12:30 AM EST MAGNESIUM Routine 09/18/2024 12:30 AM EST BASIC METABOLIC PANEL Routine 09/18/2024 12:30 AM EST BLOOD GAS WITH COOXIMETRY, ARTERIAL Routine 09/18/2024 12:00 AM EST POCT GLUCOSE, FINGERSTICK Routine 09/17/2024 10:52 PM EST SYPHILIS AB REFLEX RPR TITER & TPPA SYPHRX Routine 09/17/2024 8:00 PM EST SODIUM Routine 09/17/2024 8:00 PM EST POCT GLUCOSE, FINGERSTICK Routine 09/17/2024 7:22 PM EST BLOOD GAS WITH COOXIMETRY, ARTERIAL Routine 09/17/2024 4:23 PM EST SODIUM Routine 09/17/2024 4:23 PM EST POCT GLUCOSE, FINGERSTICK Routine 09/17/2024 3:27 PM EST HIV 1/2 AG/AB CMIA REFLEX TO CONFIRMATION Routine 09/17/2024 1:44 PM EST HEPATIC FUNCTION PANEL Routine 1:44 PM EST CREATINE KINASE (CK) Routine 09/17/2024 1:44 PM EST BLOOD GAS WITH COOXIMETRY, ARTERIAL Routine 09/17/2024 1:44 PM EST PHOSPHORUS Routine 09/17/2024 1:44 PM EST MAGNESIUM Routine 09/17/2024 1:44 PM EST BASIC METABOLIC PANEL Routine 09/17/2024 1:44 PM EST POCT GLUCOSE, FINGERSTICK Routine 09/17/2024 1:21 PM EST SODIUM Routine 09/17/2024 1:12 PM EST MRI BRAIN W W/O CONTRAST STAT 09/17/2024 12:[address] HEAD W/O CONTRAST STAT 09/17/2024 11:45 AM EST EEG LONG-TERM MONITORING STAT 09/17/2024 8:33 AM EST GC/CHLAMYDIA RNA BY TMA Routine 09/17/2024 8:08 AM EST HEPATIC FUNCTION PANEL Routine 7:50 AM EST CREATINE KINASE (CK) Routine 09/17/2024 7:50 AM EST BLOOD GAS WITH COOXIMETRY, ARTERIAL Routine 09/17/2024 7:50 AM EST LACTIC ACID, PLASMA Routine 09/17/2024 7 :50 AM EST HIGH SENSITIVITY TROPONIN T CARD 09/17/2024 7:50 AM EST PHOSPHORUS Routine 09/17/2024 7:50 AM EST MAGNESIUM Routine 09/17/2024 7:50 AM EST BASIC METABOLIC PANEL Routine 09/17/2024 7:50 AM EST POCT GLUCOSE, FINGERSTICK Routine 09/17/2024 7:44 AM EST POTASSIUM CARD 09/17/2024 5:00 AM EST HIGH SENSITIVITY TROPONIN T CARD 09/17/2024 5:00 AM EST BLOOD GAS WITH COOXIMETRY, VENOUS Routine 09/17/2024 5:00 AM EST SODIUM Routine 09/17/2024 4:14 AM EST POCT GLUCOSE, FINGERSTICK Routine 09/17/2024 3:12 AM EST MRSA PCR SCREEN, QUALITATIVE Routine 09/17/2024 2:16 AM EST BLOOD GAS WITH COOXIMETRY, VENOUS Routine 09/17/2024 2:04 AM EST POCT GLUCOSE, FINGERSTICK Routine 09/17/2024 12:19 AM EST TSH, HIGHLY SENSITIVE Routine 09/17/2024 12:08 AM EST CORTISOL, RANDOM Routine 09/17/2024 12:0 8 AM EST PHOSPHORUS Routine 09/17/2024 12:08 AM EST LACTIC ACID, PLASMA Routine 09/17/2024 1 2:08 AM EST BASIC METABOLIC PANEL Routine 09/17/2024 12:08 AM EST BLOOD GAS, VENOUS Routine 09/17/2024 12: 08 AM EST CHLORIDE, URINE, RANDOM Routine 09/17/2024 12:08 AM EST HIGH SENSITIVITY TROPONIN T CARD 09/17/2024 12:08 AM EST CREATINE KINASE (CK) Routine 09/17/2024 12:08 AM EST URIC ACID Routine 09/17/2024 12:08 AM EST SODIUM, URINE, RANDOM Routine 09/17/2024 12:08 AM EST PROCALCITONIN Routine 09/17/2024 12:08 AM EST POTASSIUM, URINE, RANDOM Routine 09/17/2024 12:08 AM EST OSMOLALITY, URINE Routine 09/17/2024 12: 08 AM EST OSMOLALITY Routine 09/17/2024 12:08 AM EST ECG 12-LEAD Routine 09/16/2024 11:48 PM EST URINALYSIS W/ REFLEX TO MICROSCOPIC AND CULTURE STAT 09/16/2024 7:52 PM EST ECG 12-LEAD STAT 09/16/2024 7:22 PM EST BLOOD CULTURE STAT 09/16/2024 6:50 PM EST BLOOD CULTURE STAT 09/16/2024 6:50 PM EST XR CHEST 1 VIEW-PORTABLE STAT 09/16/2024 6:26 PM EST POCT GLUCOSE, FINGERSTICK Routine 09/16/2024 6:13 PM EST SALICYLATE LEVEL STAT 09/16/2024 6:08 PM EST B-HYDROXYBUTYRATE STAT 09/16/2024 6:0 8 PM EST TRIGLYCERIDES STAT 09/16/2024 6:08 PM EST LIPASE STAT 09/16/2024 6:08 PM EST HEPATIC FUNCTION PANEL STAT 6:08 PM EST MAGNESIUM STAT 09/16/2024 6:08 PM EST ACETAMINOPHEN LEVEL STAT 09/16/2024 6 :08 PM EST CREATINE KINASE (CK) STAT 09/16/2024 6:08 PM EST BLOOD GAS, VENOUS STAT 09/16/2024 6:0 8 PM EST LACTIC ACID, PLASMA STAT 09/16/2024 6 :08 PM EST BASIC METABOLIC PANEL STAT 09/16/2024 6:08 PM EST COMPLETE BLOOD COUNT, WITH DIFFERENTIAL STAT 09/16/2024 6:08 PM EST from Last 3 Months Results * (ABNORMAL) Sodium (09/21/2024 2:41 PM EST) Only the most recent of17 resultswithin the time period is included. Sodium 132(L) 136 - 145 mmol/L 09/21/2024 3:47 PM EST [facility] Blood (Plasma/Serum) 09/21/2024 2:41 PM EST 09/21/2024 3:20 PM EST Aye Ignacio RN OBSERVATION LAB BLOOD ORDERABL ES Performing Organization Address City/[facility]/[place] [address], [place] [address] * (ABNORMAL) COMPLETE BLOOD COUNT, WITHOUT DIFFERENTIAL (09/21/2024 7:48 AM EST) Only the most recent of4 resultswithin the time period is included. White Blood Cell Count 5.9 4.0 - 11.0 Thou/uL 09/21/2024 8:36 AM [facility] Platelet Count 214 150 - 450 Thou/uL 09/21/2024 8:36 AM [facility] Hemoglobin 10.3(L) 11.7 - 15.7 g/dL 09/21/2024 8:36 AM [facility] Hematocrit 31.8(L) 35.0 - 47.0 % 09/21/2024 8:36 AM [facility] Red Blood Cell Count 3.68(L) 4.00 - 5.40 Mil/uL 09/21/2024 8:36 AM [facility] MCV 86 80 - 100 fL 09/21/2024 8:36 AM [facility] MCH 28.0 26.0 - 34.0 pg 09/21/2024 8:36 AM [facility] MCHC 32.4 30.0 - 36.0 g/dL 09/21/2024 8:36 AM [facility] RDW 14.4 11.5 - 14.5 % 09/21/2024 8:36 AM [facility] MPV 9.4 7.5 - 12.5 fL 09/21/2024 8:36 AM [facility] Blood Blood specimen / Unknown 09/21/2024 7:48 AM EST 09/21/2024 8:23 AM EST Aye Ignacio RN OBSERVATION [place] [address], [address] [address] * Phosphorus (09/21/2024 7:48 AM EST) Only the most recent of9 resultswithin the time period is included. Phosphorus 4.5 2.7 - 4.5 mg/dL 09/21/2024 9:17 AM [facility] Blood (Plasma/Serum) 09/21/2024 7:48 AM EST 09/21/2024 8:23 AM EST Aye Ignacio RN OBSERVATION LAB BLOOD ORDERABL ES Performing Organization Address [facility] [place] [address], [place] [address] * Magnesium (09/21/2024 7:48 AM EST) Only the most recent of9 resultswithin the time period is included. Magnesium 1.6 1.6 - 2.7 mg/dL 09/21/2024 9:17 AM [facility] Blood (Plasma/Serum) 09/21/2024 7:48 AM EST 09/21/2024 8:23 AM EST Aye Ignacio RN OBSERVATION LAB BLOOD ORDERABL ES Performing Organization Address [facility]/[place] [address], [place] [address] * (ABNORMAL) Basic Metabolic Panel (09/21/2024 7:48 AM EST) Only the most recent of10 resultswithin the time period is included. Glucose 92 65 - 99 mg/dL 09/21/2024 9:17 AM [facility] Comment:Fasting: <100 mg/dL, Non-Fasting: <200 mg/dL (ADA 2005) Blood Urea Nitrogen (BUN) 3(L) 8 - 21 mg/dL 09/21/2024 9:17 AM [facility] Creatinine 0.5 0.4 - 1.1 mg/dL 09/21/2024 9:17 AM [facility] eGFR >90 >59 09/21/2024 9:17 AM [facility] Comment:CKD-EPI (2020) in mL /min/1.73 sq meters. Sodium 135(L) 136 - 145 mmol/L 09/21/2024 9:17 AM [facility] Potassium 4.1 3.4 - 5.3 mmol/L 09/21/2024 9:17 AM [facility] Chloride 99 98 - 107 mmol/L 09/21/2024 9:17 AM [facility] CO2 27 22 - 33 mmol/L 09/21/2024 9:17 AM [facility] Anion Gap 9 7 - 17 09/21/2024 9:17 AM [facility] Calcium 9.3 8.7 - 10.5 mg/dL 09/21/2024 9:17 AM [facility] BUN/Creatinine Ratio 6(L) 10.0 - 25.0 Ratio 09/21/2024 9:17 AM [facility] Blood (Plasma/Serum) 09/21/2024 7:48 AM EST 09/21/2024 8:23 AM EST Aye Ignacio RN OBSERVATION LAB BLOOD ORDERABL ES Performing Organization Address City/[facility] [place] [address], [place] [address] * (ABNORMAL) Creatine Kinase (CK) (09/21/2024 1:18 AM EST) Only the most recent of15 resultswithin the time period is included. Creatine Kinase (CK) 4,731(HH) 24 - 173 U/L 09/21/2024 2:16 AM [facility] Blood (Plasma/Serum) 09/21/2024 1:18 AM EST 09/21/2024 1:22 AM EST Aye Ignacio RN OBSERVATION LAB BLOOD ORDERABL ES Performing Organization Address City/[facility]/[place] [address], [place] [address] * POCT Glucose, Fingerstick (09/20/2024 8:13 AM EST) Only the most recent of23 resultswithin the time period is included. POC Glucose 85 65 - 99 mg/dL 09/20/2024 8:14 AM EST Blood specimen / Unknown 09/20/2024 8:13 AM EST 09/20/2024 8:14 AM EST Adeel Enrique DO POINT OF CARE TEST [facility] See Below * VAS VENOUS DUPLEX ARM (DVT)-BILATERAL (09/19/2024 11:08 AM EST) Anatomical Region Laterality Modality Ultrasound 09/19/2024 9:10 AM EST Narrative 09/19/2024 11:11 AM EST Table formatting from the original result was not included. ?? Department: [facility] Patient: [id number] (XUAN CALZADA) ?? Patient Location: ..[place] [address].[facility] CPT Code: 58947 ICD-9: ?? Referring Physician: BEV Lora Note: Technically difficult and limited study due to patient's inability to cooperate, movements, and positioning. The remainder of the bilateral venous duplex study could not be completed due to patient becoming combative. ?? Right upper extremity venous duplex ultrasound exam was attempted. The IJ, innominate, and subclavian veins are patent without evidence of thrombus. The axillary, brachial, cephalic, and basilic veins could not be imaged due to patient becoming combative. ?? Indications Bilateral Swelling of Limb [M79.89]. 33 year old female with h/o ETOH use disorder, admitted for seizures, presents for upper extremity venous duplex study for swelling per provider Findings: ?? Right ??Impression ??Spont ??Phasic ??Compress Internal Jugular Vein ??Normal ??Yes ??Yes ??Complete Innominate Vein ??Normal ??Yes ??Yes ?? Proximal Subclavian Vein ??Normal ??Yes ??Yes ?? Distal Subclavian Vein ??Normal ??Yes ??Yes ??Complete ?? Electronically Signed by: DAMASO GILMAN III, MD on 2024-09-19 11:11:28 AM End of Report Procedure Note Wilber Perez III, MD - 09/19/2024 Department: [facility] Patient: [id number] (ELIAZARKARIXUAN ROSA) Patient Location: ..[id number] [place] [address] CPT Code: 44927 ICD-9: Referring Physician: BEV Pérez Tech Note: Technically difficult and limited study due to patient'sinability to cooperate, movements, and positioning. The remainder of thebilateral venous duplex study could not be completed due to patientbecoming combative. Right upper extremity venous duplex ultrasound exam was attempted. The IJ,innominate, and subclavian veins are patent without evidence of thrombus.The axillary, brachial, cephalic, and basilic veins could not be imageddue to patient becoming combative. Indications Bilateral Swelling of Limb [M79.89]. 33 year old female with h/o ETOH use disorder, admitted for seizures,presents for upper extremity venous duplex study for swelling per provider Findings: Right Impression Spont Phasic Compress Internal Jugular Vein Normal Yes Yes Complete Innominate Vein Normal Yes Yes Proximal Subclavian Vein Normal Yes Yes Distal Subclavian Vein Normal Yes Yes Complete Electronically Signed by: DAMASO GILMAN III, MD on :11:28 AM End of Report Bev Mukherjee PA-C VASCULAR LAB ORDERAB LES * VAS VENOUS DUPLEX LEG (DVT)-BILATERAL (09/19/2024 11:03 AM EST) Anatomical Region Laterality Modality Ultrasound 09/19/2024 9:15 AM EST Narrative 09/19/2024 11:09 AM EST Table formatting from the original result was not included. ?? Department: [facility] Patient: [id number] (SILVIAXUAN LOPEZ) ?? Patient Location: ..[id number].[facility] CPT Code: 56031 ICD-9: ?? Referring Physician: BEV Lora Note: Technically difficult and limited study due to patient's inability to cooperate, movements, and positioning. Right lower extremity venous duplex ultrasound exam demonstrates normal Doppler flow with no thrombus seen on mays scale image. ??Findings are not consistent with the presence of deep vein thrombosis. ?? Venous duplex ultrasound of the left lower extremity was performed. The calf veins could not be imaged due patient's inability to cooperate. The remainder of the duplex exam was negative for deep vein thrombosis. ?? Indications ? Bilateral Swelling of Limb [M79.89]. 33 year old female with h/o ETOH use disorder, admitted for seizures, presents for lower extremity venous duplex study for swelling per provider. Findings: ?? Right ??Impression ??Phasic ??Compressible Common Femoral Vein ??Normal ??Yes ??Complete Proximal femoral vein ??Normal ?Complete Mid femoral vein ??Normal ?Complete Distal femoral vein ??Normal ?Complete Popliteal ??Normal ?Complete Posterior Tibial Vein ??Normal ?Complete Peroneal ??Normal ?Complete GSV Saphenofemoral junction ??Normal ?Complete Left ??Impression ??Phasic ??Compressible Common Femoral Vein ??Normal ??Yes ??Complete Proximal femoral vein ??Normal ?Complete Mid femoral vein ??Normal ?Complete Distal femoral vein ??Normal ?Complete Popliteal ??Normal ?Complete Posterior Tibial Vein ??Non-visualized ?N/A Peroneal ??Non-visualized ?N/A GSV Saphenofemoral junction ??Normal ?Complete ?? Electronically Signed by: WILBER PEREZ III, MD,RPVI on 2024-09-19 11:09:29 AM End of Report Procedure Note Wilber Perez III, MD - 09/19/2024 Department: [facility] Patient: [id number] (XUAN CALZADA) [id number] CPT Code: 14666 ICD-9: Referring Physician: BEV Lora Note: Technically difficult and limited study due to patient'sinability to cooperate, movements, and positioning. Right lower extremity venous duplex ultrasound exam demonstrates normalDoppler flow with no thrombus seen on mays scale image. Findings are notconsistent with the presence of deep vein thrombosis. Venous duplex ultrasound of the left lower extremity was performed. Thecalf veins could not be imaged due patient's inability to cooperate. Theremainder of the duplex exam was negative for deep vein thrombosis. Indications Bilateral Swelling of Limb [M79.89]. 33 year old female with h/o ETOH use disorder, admitted for seizures,presents for lower extremity venous duplex study for swelling perprovider. Findings: Right Impression Phasic Compressible Common Femoral Vein Normal Yes Complete Proximal femoral vein Normal Complete Mid femoral vein Normal Complete Distal femoral vein Normal Complete Popliteal Normal Complete Posterior Tibial Vein Normal Complete Peroneal Normal Complete GSV Saphenofemoral junction Normal Complete Left Impression Phasic Compressible Common Femoral Vein Normal Yes Complete Proximal femoral vein Normal Complete Mid femoral vein Normal Complete Distal femoral vein Normal Complete Popliteal Normal Complete Posterior Tibial Vein Non-visualized N/A Peroneal Non-visualized N/A GSV Saphenofemoral junction Normal Complete Electronically Signed by: WILBER PEREZ III, MD,RPVI on :09:29 AM End of Report Bev Biolo PA-C VASCULAR LAB ORDERAB LES * Heparin PF4 Ab Screen Reflex Serotonin Release Assay (09/19/2024 10:21 AM EST) Heparin PF4 Antibody Negative Negative 09/20/2024 10:36 AM EST [facility] Comment:Negative Screen, ref clark testing not indicated. Plasma/Serum 09/19/2024 10:2 1 AM EST 09/19/2024 10:29 AM EST Bev Biolo PA-C [place] [address], [address] [address] * ECG 12 lead (09/19/2024 9:11 AM EST) Only the most recent of3 resultswithin the time period is included. Systolic BP 109 mmHg EKG [facility] Diastolic BP 77 mmHg EKG [facility] Ventricular rate 86 BPM EKG [facility] Atrial rate 86 BPM EKG [facility] P-R interval 146 ms EKG [facility] QRS duration 76 ms EKG [facility] Q-T interval 360 ms EKG [facility] QTC calculation (Bazett) 430 ms EKG [facility] P axis 59 degrees EKG [facility] R axis 85 degrees EKG [facility] T axis 61 degrees EKG [facility] 09/19/2024 9:11 AM EST Narrative EKG [facility] - 09/19/2024 10:55 PM EST Normal sinus rhythm Septal infarct , age undetermined Abnormal ECG When compared with ECG of 16-Sep-2024 23:48, QT has shortened Confirmed by MD Hernandez Shishir ([id number]) on 09/19/2024 10:55:12 PM Procedure Note Charels Hernandez MD - 09/19/2024 Normal sinus rhythm Septal infarct , age undetermined Abnormal ECG When compared with ECG of 16-Sep-2024 23:48, QT has shortened Confirmed by MD Hernandez Shishir ([id number]) on 09/19/2024 10:55:12 PM Adeel Nunez DO ECG ORDERABLES EKMT. [facility] * EEG 24 HOUR WITH VIDEO (09/19/2024 1:51 AM EST) Sarah HALL NEUROLOGY ORDERABL ES NAT [address] [place] [address], * Vancomycin Level, Random (09/18/2024 9:55 AM EST) Vancomycin, Random 16 mg/L 09/18/2024 3:07 PM EST [facility] Comment:No reference range e stablished for random levels. Time of Last Dose Information not given 09/18/2024 9:55 AM EST Blood (Plasma/Serum) 09/18/2024 9:55 AM EST 09/18/2024 2:38 PM EST Leidy Stratton MD LAB BLOOD ORDERABLES Performing Organization Address City/State/[facility] [place] [address], [address] [address] * EEG - Long-term monitoring (09/18/2024 8:25 AM EST) Narrative NATUS - 09/18/2024 8:25 AM EST Rob Duran MD ? 09/19/2024 ??9:39 AM ADULT INPATIENT CONTINUOUS VIDEO-EEG MONITORING (LTM) REPORT Facility: ? [facility] Patient and : Xuan Calzada 1990 Date of Procedure: 09/19/2024 Admission Attending: Leidy Stratton MD CLINICAL INFORMATION: The patient is a 33 y.o. female undergoing continuous EEG to evaluate concern for seizures SEIZURE MEDICATIONS: ??levetiracetam and propofol RECORDING CONDITIONS: ??Continuous VEEG monitoring was performed. Electrodes were applied according to the International 10-20 System. Data were obtained, stored, and interpreted according to ACNS guidelines (J Clin Neurophysiol 2006;23(2):85-183) utilizing referential montage recording, with reformatting to longitudinal, transverse bipolar, and referential montages as necessary for interpretation, along with digital/automated EEG analysis of Irwin and Event detections. Patient tolerated procedure without issue. DESCRIPTION OF DAILY EEG AND EVENTS: ?? Monitoring Day 1: 09/17/2024 ?? Posterior Activity: No posterior dominant rhythm. Background Activity: The background was symmetric and nearly continuous with periods of attenuation (10 uV or greater but <50% of higher voltage background) consisting of 1-9% of the record and lasting ~1-2 second(s) and higher voltage periods consisting of predominantly low voltage (20-49 uV), theta and delta frequencies; anterior-posterior organization was absent. Reactivity/Variability/Sleep: Reactivity was present; no spontaneous state changes present. Focal Slowing: None. Interictal Epileptiform Abnormalities: None. Seizures/Events: None. Other: The background was obscured by EMG artifact in the stimulated state. ??propofol gtt at 75 mcg/kg/min, gradually reduced to 30 mcg/kg/min by 16: 30. ECG: No notable ECG abnormalities were apparent. Monitoring Day 2: 09/18/2024 ?? Posterior Activity: No posterior dominant rhythm. After propofol was discontinued, in the maximally awake state, posterior frequencies were symmetric consisting of 7 Hz activity with reactivity to eye opening. Background Activity: The background was symmetric and nearly continuous with periods of attenuation (10 uV or greater but <50% of higher voltage background) consisting of 1-9% of the record and lasting ~1-2 second(s) and higher voltage periods consisting of predominantly low voltage (20-49 uV), theta and delta frequencies; anterior-posterior organization was absent. After propofol was discontinued, the background became continuous consisting of predominantly very low voltage (<20 uV), alpha, beta, and theta frequencies; anterior-posterior organization was present. ?? Reactivity/Variability/Sleep: Reactivity was present; no spontaneous state changes present. After propofol was discontinued, reactivity and spontaneous state changes were seen. No well-formed stage II sleep features were observed. Focal Slowing: None. Interictal Epileptiform Abnormalities: None. Seizures/Events: None. Other: The background was obscured by EMG artifact in the stimulated state. ??propofol gtt at 30 mcg/kg/min, increased to 40 mcg/kg/min at 2: 30, discontinued at 12: 54. ECG: No notable ECG abnormalities were apparent. DAILY IMPRESSIONS Monitoring Day 1: 09/17/2024 - Nonspecific, moderate to severe encephalopathy. Monitoring Day 2: 09/18/2024 - Nonspecific, moderate to severe encephalopathy which improved to mild encephalopathy after discontinuation of propofol. E.E.G. INTERPRETATION: Abnormal 2 day continuous Video-EEG Monitoring Study due to: Non-epileptic events: None. Epileptic events: None. Interictal abnormalities: Background abnormalities including moderate to severe diffuse slowing, which improved to mild diffuse slowing after discontinuation of propofol. CLINICAL CORRELATION: This EEG was suggestive of a nonspecific, moderate to severe encephalopathy initially, which improved to mild encephalopathy after discontinuation of propofol. Overall recording Period: ??4: 00 hrs on 09/17/2024 through 22:38 hrs on 09/18/2024. ?? ATTESTATION: This EEG was continuously available for review and interpretation. ??EEG was reviewed and the note updated at least daily for the duration of the recording period, and results provided to the neurology team providing direct patient care. FOR EEG LAB USE: Abnormal EEG: INTERICTAL ABNORMAL: Encephalopathy mild (!qxz&v4); ? Focal Slowing None (!qxz&v12); ? Epileptiform Interictals: None (!qxz&v12) ??No events (!qxz&v21, !qxz&v34, !qxz&v47, !qxz&v49) Rob Duran MD, PhD. ABPN/ ABPN epilepsy [facility] Sarah HALL NEUROLOGY ORDERABL ES NATUS [address] [place] [address], * (ABNORMAL) Complete Blood Count, with Differential (09/18/2024 12:30 AM EST) Only the most recent of2 resultswithin the time period is included. White Blood Cell Count 11.3(H) 4.0 - 11.0 Thou/uL 09/18/2024 1:15 AM [facility] Platelet Count 69(L) 150 - 450 Thou/uL 09/18/2024 1:15 AM [facility] Comment:Results verified by smear review. Hemoglobin 9.9(L) 11.7 - 15.7 g/dL 09/18/2024 1:15 AM [facility] Hematocrit 29.8(L) 35.0 - 47.0 % 09/18/2024 1:15 AM [facility] Red Blood Cell Count 3.52(L) 4.00 - 5.40 Mil/uL 09/18/2024 1:15 AM [facility] MCV 85 80 - 100 fL 09/18/2024 1:15 AM [facility] MCH 28.1 26.0 - 34.0 pg 09/18/2024 1:15 AM [facility] MCHC 33.2 30.0 - 36.0 g/dL 09/18/2024 1:15 AM [facility] RDW 13.2 11.5 - 14.5 % 09/18/2024 1:15 AM [facility] MPV 11.0 7.5 - 12.5 fL 09/18/2024 1:15 AM [facility] nRBC 0.2(H) 0.0 - 0.1 /100 WBC 09/18/2024 1:15 AM [facility] nRBC, Absolute 0.02 0.00 - 0.02 Thou/uL 09/18/2024 1:15 AM [facility] Immature Platelet Fraction 8.9(H) 1.2 - 8.6 % 09/18/2024 1:15 AM [facility] Neutrophils Auto 78.0 % 09/18/20 1:15 AM [facility] Immature Granulocytes 0.5 % 09/18/2024 1:15 AM [facility] Lymphocytes Auto 15.4 % 09/18/20 1:15 AM [facility] Monocytes Auto 5.9 % 09/18/2024 1:15 AM [facility] Eosinophils Auto 0.1 % 09/18/20 1:15 AM [facility] Basophils Auto 0.1 % 09/18/2024 1:15 AM [facility] Abs Neutrophils Auto 8.79(H) 2.00 - 7.50 Thou/uL 09/18/2024 1:15 [facility] Abs Immature Granulocytes 0.06 0.00 - 0.10 Thou/uL 09/18/2024 1:15 AM [facility] Abs Lymphocytes Auto 1.74 1.50 - 4.50 Thou/uL 09/18/2024 1:15 AM [facility] Abs Monocytes Auto 0.67 0.20 - 1.50 Thou/uL 09/18/2024 1:15 AM [facility] Abs Eosinophils Auto 0.01 0.00 - 0.70 Thou/uL 09/18/2024 1:15 AM [facility] Abs Basophils Auto 0.01 0.00 - 0.20 Thou/uL 09/18/2024 1:15 AM [facility] Blood Blood specimen / Unknown 09/18/2024 12:30 AM EST 09/18/2024 12:38 AM EST Sergio Smith PA-C LAB BLOOD ORDERABLES Performing Organization Address City/[facility] Co de Phone Number [address] [address], [address] [address] * (ABNORMAL) HEPATIC FUNCTION PANEL (09/18/2024 12:30 AM EST) Only the most recent of4 resultswithin the time period is included. Alkaline Phosphatase 111 32 - 122 U/L 09/18/2024 2:00 AM [facility] Aspartate Aminotrans (AST) 49 10 - 50 U/L 09/18/2024 2:00 AM [facility] Alanine Aminotrans (ALT) 18 10 - 50 U/L 09/18/2024 2:00 AM [facility] Bilirubin, Total 0.5 0.2 - 1.0 mg/dL 09/18/2024 2:00 AM [facility] Protein, Total 6.4 6.3 - 8.3 g/dL 09/18/2024 2:00 AM [facility] Albumin 3.2(L) 3.5 - 5.0 g/dL 09/18/2024 2:00 AM [facility] Bilirubin, Direct <0.2 0 - 0.2 mg/dL 09/18/2024 2:00 AM [facility] Globulin 3.2 1.5 - 3.9 g/dL 09/18/2024 2:00 AM [facility] Albumin/Globulin Ratio 1.0 1.0 - 3.0 Ratio 09/18/2024 2:00 AM [facility] Blood (Plasma/Serum) 09/18/2024 12:30 AM EST 09/18/2024 12:38 AM EST Sergio Sorel PA-[place] [address], [place] [address] * (ABNORMAL) Blood Gas with Cooximetry, Arterial (09/18/2024 12:00 AM EST) Only the most recent of4 resultswithin the time period is included. Respiratory Info VENT 40% 09/17/20 11:29 PM EST pH, Arterial 7.49(H) 7.35 - 7.45 09/18/2024 12:53 AM [facility] pCO2, Arterial 39 32 - 45 mmHG 09/18/2024 12:53 AM [facility] pO2, Arterial 161(H) 75 - 95 mmHG 09/18/2024 12:53 AM [facility] CO2, Total 30(H) 22 - 28 mmol/L 09/18/2024 12:53 AM [facility] P/F Ratio 403 09/18/2024 12:53 AM [facility] Base Excess 5.5 mmol/L 09/18/2024 12:53 AM [facility] Comment:Reference Range: Neg ative 2 to Positive 3 Hemogloblin, Total 10.2(L) 11.7 - 15.7 g/dL 09/18/2024 12:53 AM [facility] O2 Saturation, Arterial 99.9(H) 94 - 97 % 09/18/2024 12:53 AM [facility] Carboxyhemoglobin 1.7 0.0 - 2.0 % 09/18/2024 12:53 AM [facility] Methemoglobin 0.5 0.4 - 1.5 % 09/18/2024 12:53 AM [facility] O2 Content, Arterial 14.3(L) 15.7 - 21.6 mL/dL 09/18/2024 12:53 AM [facility] Blood specimen / Unknown 09/18/2024 09/18/2024 12:45 AM EST Sergio Smith PA-C [place] [address], [address] [address] [place] [address] * Syphilis Antibody reflex RPR Titer & TPPA (09/17/2024 8:00 PM EST) Syphilis Antibody Reflex RPR Titer and TPA Nonreactive Nonreactive 09/18/2024 10:29 AM EST [facility] Blood Serum specimen / Unknown 09/17/2024 8:00 PM EST 09/17/2024 8:06 PM EST Sergio HALL-C LAB BLOOD ORDERABLES Performing Organization Address City/[facility]/ZIP Co de Phone Number [facility] [address] [place] [address], * HIV 1/2 Ag/Ab CMIA Reflex to Confirmation (09/17/2024 1:44 PM EST) HIV 1/2 Ag/Ab CMIA Nonreactive Nonreactive 09/18/2024 11:49 AM [facility] Comment: Results show no evidence of infection by HIV 1/2. If clinically indicated, repeat CMIA or test by nucleic acid amplification. HIV 1/2 Antigen/Antibody CMIA reflex to confirmation AND HIV-1 RNA viral load recommended in patients who are taking or have recently taken PrEP. Blood Serum specimen / Unknown 09/17/2024 1:44 PM EST 09/17/2024 2:04 PM EST Sergio HALL-C LAB BLOOD ORDERABLES Performing Organization Address City/[facility]/ZIP Co de Phone Number [facility] [address] [place] [address], * MRI Brain w w/o contrast (09/17/2024 12:52 PM EST) Anatomical Region Laterality Modality Head Magnetic Resonan ce 09/17/2024 11:4 2 AM EST Impressions 09/17/2024 1:12 PM EST Nonspecific mild diffuse pachymeningeal enhancement. Otherwise, unremarkable MRI brain. Narrative 09/17/2024 1:12 PM EST EXAMINATION: MR BRAIN WITHOUT AND WITH CONTRAST CLINICAL INFORMATION: Seizure ?? COMPARISON: None available. TECHNIQUE: Multiplanar, multisequence MRI of the brain was obtained before and after the intravenous administration of 7 mL Gadavist. FINDINGS: Motion artifact is present. Mild diffuse pachymeningeal enhancement. No abnormal intraparenchymal enhancement. No acute intracranial hemorrhage or infarct. Dedicated coronal oblique imaging through the temporal lobes demonstrate symmetric size, signal intensity, and morphological appearance of the hippocampal formations. No evidence for mesial temporal sclerosis. No midline shift or hydrocephalus. No acute extra-axial fluid collections. The osseous structures are unremarkable. The pituitary gland, pineal gland and remaining midline structures are unremarkable. Sequelae of left lens replacement. Otherwise, no acute orbital pathology. The paranasal sinuses and mastoid air cells are clear. Procedure Note Kyle Marrero MD - 09/17/2024 EXAMINATION: MR BRAIN WITHOUT AND WITH CONTRAST CLINICAL INFORMATION: Seizure COMPARISON: None available. TECHNIQUE: Multiplanar, multisequence MRI of the brain was obtained before and after the intravenous administration of 7 mL Gadavist. FINDINGS: Motion artifact is present. Mild diffuse pachymeningeal enhancement. No abnormal intraparenchymal enhancement. No acute intracranial hemorrhage or infarct. Dedicated coronal oblique imaging through the temporal lobes demonstrate symmetric size, signal intensity, and morphological appearance of the hippocampal formations. No evidence for mesial temporal sclerosis. No midline shift or hydrocephalus. No acute extra-axial fluid collections. The osseous structures are unremarkable. The pituitary gland, pineal gland and remaining midline structures are unremarkable. Sequelae of left lens replacement. Otherwise, no acute orbital pathology. The paranasal sinuses and mastoid air cells are clear. IMPRESSION: Nonspecific mild diffuse pachymeningeal enhancement. Otherwise, unremarkable MRI brain. Leidy Stratton MD IMG MRI ORDERABLES * CT Head w/o contrast (09/17/2024 11:45 AM EST) Anatomical Region Laterality Modality Head Computed Tomogra phy 09/17/2024 11:2 7 AM EST Addenda Addendum by Bryson Aguilar MD on 09/17/2024 10:38 PM EST ADDENDUM #1 This result with regards to absence of the left orbital lens and findings suggestive of a possible prior lens replacement was discussed with Sarah HALL by telephone at 09/17/2024 10:37 PM EST and it was ascertained that the content and urgency of the report was understood at the time of direct communication. Impressions 09/17/2024 10:29 PM EST No acute intracranial hemorrhage or territorial infarction. Consider further evaluation with MR brain if there is persistent clinical concern. Status post left ocular lens replacement. Interpreted by: ??Kit Jolly MD Army Manager I personally reviewed the images and the resident's preliminary report and AGREE with the report as it is now presented ([email or web address]). Narrative 09/17/2024 10:29 PM EST EXAMINATION: CT HEAD WITHOUT IV CONTRAST CLINICAL INFORMATION: 33 years old Female with new fixed left pupil COMPARISON: None. TECHNIQUE: Contiguous axial imaging was performed from the skull base to vertex without intravenous contrast. Coronal and sagittal reformatted images were obtained. This CT examination was performed using dose optimization techniques as appropriate, variously including the following: * ??Automated exposure control * ??Adjustment of mA and/or kV according to patient size (this includes techniques or standardized protocols for targeted exams where dose is matched to indication/reason for exam; i.e. extremities or head) * ??Use of iterative reconstruction technique DLP: 691 mGy-cm. FINDINGS: There is no evidence of acute intracranial hemorrhage or territorial infarction. Mays to white matter differentiation is well preserved. No abnormal mass effect or midline shift is seen. No extra-axial fluid collections are identified. Proportional prominence of the ventricles and sulcal spaces without evidence of obstructive hydrocephalus. There is no abnormal attenuation within the brain parenchyma. No acute osseous or soft tissue abnormality. Mild bilateral temporomandibular joint arthrosis. The mastoid air cells and visualized portions of the paranasal sinuses are well aerated. Procedure Note Bryson Aguilar MD - 09/17/2024 EXAMINATION: CT HEAD WITHOUT IV CONTRAST CLINICAL INFORMATION: 33 years old Female with new fixed left pupil COMPARISON: None. TECHNIQUE: Contiguous axial imaging was performed from the skull base to vertex without intravenous contrast. Coronal and sagittal reformatted images were obtained. This CT examination was performed using dose optimization techniques as appropriate, variously including the following: * Automated exposure control * Adjustment of mA and/or kV according to patient size (this includes techniques or standardized protocols for targeted exams where dose is matched to indication/reason for exam; i.e. extremities or head) * Use of iterative reconstruction technique DLP: 691 mGy-cm. FINDINGS: There is no evidence of acute intracranial hemorrhage or territorial infarction. Mays to white matter differentiation is well preserved. No abnormal mass effect or midline shift is seen. No extra-axial fluid collections are identified. Proportional prominence of the ventricles and sulcal spaces without evidence of obstructive hydrocephalus. There is no abnormal attenuation within the brain parenchyma. No acute osseous or soft tissue abnormality. Mild bilateral temporomandibular joint arthrosis. The mastoid air cells and visualized portions of the paranasal sinuses are well aerated. IMPRESSION: No acute intracranial hemorrhage or territorial infarction. Consider further evaluation with MR brain if there is persistent clinical concern. Status post left ocular lens replacement. Interpreted by: Kit Jolly MD Army Manager I personally reviewed the images and the resident's preliminary report and AGREE with the report as it is now presented ([email or web address]). Sergio Smith PA-C IMG CT ORDERABLES * EEG 24 HOUR WITH VIDEO (09/17/2024 8:33 AM EST) Narrative [facility] - 09/17/2024 8:33 AM EST Rob Duran MD ? 09/17/2024 ??8:36 AM ADULT INPATIENT CONTINUOUS VIDEO-EEG MONITORING (LTM) REPORT Facility: ? [facility] Patient and : Xuan Calzada 1990 Date of Procedure: 09/17/2024 Admission Attending: Leidy Stratton MD Recording begun at 4: 00 hrs on 09/17/2024 ??and is ongoing continuously unless otherwise noted. CLINICAL INFORMATION: The patient is a 33 y.o. female undergoing continuous EEG to evaluate concern for seizures SEIZURE MEDICATIONS: ??levetiracetam and propofol RECORDING CONDITIONS: ??Continuous VEEG monitoring was performed. Electrodes were applied according to the International 10-20 System. Data were obtained, stored, and interpreted according to ACNS guidelines (J Clin Neurophysiol 2006;23(2):85-183) utilizing referential montage recording, with reformatting to longitudinal, transverse bipolar, and referential montages as necessary for interpretation, along with digital/automated EEG analysis of Irwin and Event detections. Patient tolerated procedure without issue. DESCRIPTION OF DAILY EEG AND EVENTS: ?? Monitoring Day 1: 09/17/2024 ?? Posterior Activity: No posterior dominant rhythm. Background Activity: The background was symmetric and nearly continuous with periods of attenuation (10 uV or greater but <50% of higher voltage background) consisting of 1-9% of the record and lasting ~1-2 second(s) and higher voltage periods consisting of predominantly low voltage (20-49 uV), theta and delta frequencies; anterior-posterior organization was absent. Reactivity/Variability/Sleep: Reactivity was present; no spontaneous state changes present. Focal Slowing: None. Interictal Epileptiform Abnormalities: None. Seizures/Events: None. Other: The background was obscured by EMG artifact in the stimulated state. ??propofol gtt at 75 mcg/kg/min. ECG: No notable ECG abnormalities were apparent. DAILY IMPRESSIONS Monitoring Day 1: 09/17/2024 - Nonspecific, moderate to severe encephalopathy. REPORT LAST UPDATED: 09/17/2024 8:33 AM. THIS REPORT IS UPDATED AND SIGNED DAILY WHILE THE EEG RECORDING IS ONGOING. THE REPORT IS NOT CONSIDERED FINAL UNTIL THE EEG HAS STOPPED RECORDING. ??AN OVERALL IMPRESSION AND CLINICAL CORRELATION WILL THEN BE ADDED TO THE END OF THIS REPORT. FOR QUERIES CONTACT THE NEUROLOGY CARE TEAM. Rob Duran MD, PhD. ABPN/ ABPN epilepsy [facility] Sarah HALL NEUROLOGY ORDERABL ES [facility] [address] [address] * GC/Chlamydia RNA by TMA (09/17/2024 8:08 AM EST) Chlamydia RNA by TMA Negative Negative 09/18/2024 2:52 PM EST [facility] GC RNA by TMA Negative Negative 09/18/2024 2:52 PM EST [facility] Comment:Not FDA approved for GC/Chlamydia in [employer], rectal and throat specimens. Test validated by [facility] [employer] for detecting GC/Chlamydia from these sources. X-Specimen 14 Urine specimen / Unknown 09/17/2024 8:08 AM EST 09/17/2024 1:48 PM EST Sergio Smith PA-C MICROBIOLOGY - GENER AL ORDERABLES [facility] [address] * (ABNORMAL) High Sensitivity Troponin T (Once) (09/17/2024 7:50 AM EST) Only the most recent of3 resultswithin the time period is included. High Sensitivity Troponin T 238(HH) <15 ng/L 09/17/2024 8:49 AM EST [facility] Comment:Recurring Critical R esult. Previously phoned. Delta (Change) 12(H) <3 09/17/2024 8:49 AM EST [facility] Comment:Decreased Blood (Plasma/Serum) 09/17/2024 7:50 AM EST 09/17/2024 7:59 AM EST Sergio Smith PA-C LAB BLOOD ORDERABLES Performing Organization Address [facility]/[place] [address], [place] [address] * Lactic Acid, Plasma (STAT) (09/17/2024 7:50 AM EST) Only the most recent of3 resultswithin the time period is included. Lactic Acid 1.5 0.5 - 1.9 mmol/L 09/17/2024 8:24 AM EST [facility] Blood Plasma specimen / Unknown 09/17/2024 7:50 AM EST 09/17/2024 7:59 AM EST Sergio Smith PA-C LAB BLOOD ORDERABLES Performing Organization Address [facility]/[place] [address], [place] [address] * (ABNORMAL) Blood Gas with Cooximetry, Venous (09/17/2024 5:00 AM EST) Only the most recent of2 resultswithin the time period is included. Respiratory Info VENT 40% 09/17/20 4:18 AM EST Venous Blood PH 7.53(H) 7.33 - 7.43 09/17/2024 5:20 AM [facility] Venous pCO2 41 35 - 50 mmHG 09/17/2024 5:20 AM [facility] Venous pO2 100(H) 0 - 60 mmHG 09/17/2024 5:20 AM [facility] Venous Total CO2 35(H) 23 - 29 mmol/L 09/17/2024 5:20 AM [facility] Base Excess 10.3 mmol/L 09/17/2024 5:20 AM [facility] Comment:Reference Range: Neg ative 2 to Positive 3 Hemogloblin, Total 11.1(L) 11.7 - 15.7 g/dL 09/17/2024 5:20 AM [facility] O2 Saturation, Venous 98.4 % 5:20 AM [facility] Carboxyhemoglobin 2.3(H) 0.0 - 2.0 % 09/17/2024 5:20 AM [facility] Methemoglobin 0.4 0.4 - 1.5 % 09/17/2024 5:20 AM [facility] Venous O2 Content 15.0 7.2 - 17.2 mL/dL 09/17/2024 5:20 AM [facility] Blood specimen / Unknown 09/17/2024 5:00 AM EST 09/17/2024 5:16 AM EST Jose Kaplan PA-C [place] [address], [place] [address] * (ABNORMAL) POTASSIUM (09/17/2024 5:00 AM EST) Potassium 2.8(L) 3.4 - 5.3 mmol/L 09/17/2024 6:22 AM [facility] Plasma/Serum 09/17/2024 5:00 AM EST 09/17/2024 5:20 AM EST Jose TUCKER BLOOD ORDERABL ES Performing Organization Address [facility] [place] [address], [place] [address] * MRSA PCR Screen, Qualitative (09/17/2024 2:16 AM EST) MRSA Result Not Detected Not Detected 3:56 AM [facility] Comment:Performed by the Xpe rt MRSA NxG Assay X-Specimen 12 Specimen from nose / Unknown 09/17/2024 2:16 AM EST 09/17/2024 2:31 AM EST Leidy ZELAYA AL ORDERABLES Performing Organization Address [facility] [facility] [place] [address], [place] [address] * (ABNORMAL) Procalcitonin (09/17/2024 12:08 AM EST) Procalcitonin 0.38(H) <0.09 ng/mL 09/17/2024 1:00 AM [facility] Comment: (NOTE) ?Procalcitonin (PCT) Guided Antibiotic ? Management for Respiratory Infection ? Initial PCT interpretation: < 0.09 ng/mL: ? Antibiotics NOT likely needed ? (bacterial etiology very unlikely). 0.09 - 0.25 ng/mL: ??Antibiotics are NOT likely needed unless clinical ? concern for infection ? (bacterial etiology unlikely). 0.26 - 0.5 ng/mL: ?? Antibiotics likely needed ? (bacterial etiology likely). ? Repeat PCT after 3-5 days. > 0.5 ng/mL: ?Antibiotics likely needed ? (bacterial etiology very likely). ? Repeat PCT after 3-5 days. Repeat PCT interpretation: Initial PCT < 5 ng/mL: Consider stopping antibiotics ?when PCT < 0.25 ng/mL. Initial PCT > 5 ng/mL: Consider stopping antibiotics when 80% ?reduction in PCT from initial value or ?PCT < 0.25 ng/mL. The above interpretative values are not appropriate for non-respiratory infectious diagnostics Blood (Plasma/Serum) 09/17/2024 12:08 AM EST 09/17/2024 12:29 AM EST Leidy HALL LAB BLOOD ORDERABLES Performing Organization Address City/State/[facility] [place] [address], [place] [address] * Cortisol, Random (09/17/2024 12:08 AM EST) Pathologist [facility] Cortisol, Random 27.1 ug/dL 09/17/2024 1:56 AM [facility] Comment: AM Reference Range: 6.2-19.4 ug/dL PM Reference Range: 2.3-11.9 ug/dL Plasma/Serum 09/17/2024 12:0 8 AM EST 09/17/2024 12:29 AM EST [employer] Diabetes LAB BLOOD ORDERABLES Performing Organization Address [facility] [place] [address], [place] [address] * Sodium, Urine, Random (09/17/2024 12:08 AM EST) Sodium, Urine Random 35 mmol/L 09/17/2024 12:40 AM [facility] Comment:Reference range not established for random specimen. Urine Urine specimen / Unknown 09/17/2024 12:08 AM EST 09/17/2024 12:23 AM EST [employer] PA URINE ORDERABLES Performing Organization Address [facility] [place] [address], [place] [address] * Potassium, Urine, Random (09/17/2024 12:08 AM EST) Potassium, Urine (Random) 59 mmol/L 09/17/2024 12:40 AM [facility] Comment:Reference range not established for random specimen. Urine Urine specimen / Unknown 09/17/2024 12:08 AM EST 09/17/2024 12:23 AM EST [employer] Diabetes URINE ORDERABLES Performing Organization Address [facility] [place] [address], [place] [address] * Osmolality, Urine (09/17/2024 12:08 AM EST) Osmolality, Urine 270 40 - 1,400 mOsm/Kg 09/17/2024 12:49 AM EST [facility] Urine Urine specimen / Unknown 09/17/2024 12:08 AM EST 09/17/2024 12:23 AM EST Leidy Braga PA URINE ORDERABLES Performing Organization Address [facility] [place] [address], [place] [address] * Chloride, Urine, Random (09/17/2024 12:08 AM EST) Chloride, Urine, Random 22 mmol/L 09/17/2024 12:40 AM EST [facility] Comment:Reference range not established for random specimen. Urine Urine specimen / Unknown 09/17/2024 12:08 AM EST 09/17/2024 12:23 AM EST Leidy Shefali PA URINE ORDERABLES Performing Organization Address [facility] [place] [address], [place] [address] * Uric Acid (09/17/2024 12:08 AM EST) Uric Acid 6.0 2.5 - 7.0 mg/dL 09/17/2024 1:19 AM EST [facility] Blood (Plasma/Serum) 09/17/2024 12:08 AM EST 09/17/2024 12:29 AM EST Leidy Shefali PA LAB BLOOD ORDERABLES Performing Organization Address City/[facility] [place] [address], [place] [address] * TSH, HIGHLY SENSITIVE (09/17/2024 12:08 AM EST) TSH, Highly Sensitive 1.69 0.27 - 4.20 mIU/L 09/17/2024 1:56 AM [facility] Plasma/Serum 09/17/2024 12:0 8 AM EST 09/17/2024 12:29 AM EST Leidy Qiro PA LAB BLOOD ORDERABLES Performing Organization Address [facility] [place] [address], [place] [address] * (ABNORMAL) Osmolality (09/17/2024 12:08 AM EST) Osmolality, Serum/Plasma 258(L) 285 - 295 mOsm/Kg 09/17/2024 12:49 AM [facility] Blood (Plasma/Serum) 09/17/2024 12:08 AM EST 09/17/2024 12:29 AM EST [employer] PA LAB BLOOD ORDERABLES Performing Organization Address [facility] [place] [address], [place] [address] * (ABNORMAL) Blood Gas, Venous (09/17/2024 12:08 AM EST) Only the most recent of2 resultswithin the time period is included. Venous Blood PH 7.67(HH) 7.33 - 7.43 09/17/2024 12:26 AM [facility] Venous pCO2 31(L) 35 - 50 mmHG 09/17/2024 12:26 AM [facility] Venous pO2 131(H) 0 - 60 mmHG 09/17/2024 12:26 AM [facility] Venous Total CO2 38(H) 23 - 29 mmol/L 09/17/2024 12:26 AM [facility] Respiratory Info VENT 40% 09/17/20 12:08 AM EST Base Excess 14.3 mmol/L 09/17/2024 12:26 AM [facility] Comment:Reference Range: Neg ative 2 to Positive 3 Blood Blood specimen / Unknown 09/17/2024 12:08 AM EST 09/17/2024 12:20 AM EST Leidy HALL LAB BLOOD ORDERABLES Performing Organization Address City/[facility]/[place] [address], [place] [address] * (ABNORMAL) Urinalysis with Reflex to Microscopic and Culture (09/16/2024 7:52 PM EST) Color Yellow 09/16/2024 8:13 PM [facility] Clarity Slightly cloudy 09/16/2024 8:13 PM [facility] Specific [place] 1.019 1.003 - 1.030 09/16/2024 8:13 PM [facility] pH 8.0 5.0 - 8.0 09/16/2024 8:13 PM [facility] Leukocyte Esterase Trace(A) Negative 09/16/2024 8:13 PM [facility] Nitrite Negative Negative 09/16/2024 8:13 PM [facility] Protein Moderate (100 mg/dL)(A) Negative 09/16/2024 8:13 PM [facility] Glucose 0 0 - 99 mg/dL 09/16/2024 8:13 PM [facility] Ketones Negative Negative 09/16/2024 8:13 PM [facility] Blood Small(A) Negative 09/16/2024 8:13 PM [facility] Bilirubin Negative Negative 09/16/2024 8:13 PM [facility] WBC 4 0 - 4 per hpf 09/16/2024 8:13 PM [facility] RBC 12(H) 0 - 4 per hpf 09/16/2024 8:13 PM [facility] X-Specimen 16 Urine specimen collection, closed drainage / Unknown 09/16/2024 7:52 PM EST 09/16/2024 8:02 PM EST Adeel Enrique DO URINE ORDERABLES Performing Organization Address City/[facility]/[place] [address], [place] [address] * BLOOD CULTURE Peripheral (09/16/2024 6:50 PM EST) Only the most recent of2 resultswithin the time period is included. Culture Sterile after 5 days 09/21/2024 1:13 PM EST [facility] Microbiology Peripheral blood specimen / Unknown 09/16/2024 6:50 PM EST 09/16/2024 7:36 PM EST Adeel Nunez DO LAB BLOOD ORDERABLES [facility] [address] [place] [address], [place] * XR Chest 1 view-Portable (09/16/2024 6:26 PM EST) Anatomical Region Laterality Modality Chest Computed Radiogr aphy 09/16/2024 6:19 PM EST Impressions 09/16/2024 11:16 PM EST Appropriate position of endotracheal and NG tube.. This result with regards to endotracheal tube placement was discussed with Dr. Dagoberto GONZALEZ by telephone at 09/16/2024 11:15 PM EST and it was ascertained that the content and urgency of the report was understood at the time of direct communication. Interpreted by: ??Jose Ramon Comer DO Army Manager I personally reviewed the images and the resident's preliminary report and AGREE with the report as it is now presented ([email or web address]). Narrative 09/16/2024 11:16 PM EST EXAMINATION: XR CHEST 1 VIEW PORTABLE CLINICAL INFORMATION: INTUBATED COMPARISON: No prior chest radiographs TECHNIQUE: AP view of the chest was obtained. FINDINGS: Tip of endotracheal tube projects 5.7 cm above the ayah. NG tube courses below the left hemidiaphragm out of field of view. The lungs are well-expanded. No focal consolidation or opacities. No pneumothorax. No pleural effusions. Normal sized cardiomediastinal silhouette.. No acute osseous abnormalities. Procedure Note Bryson Aguilar MD - 09/16/2024 EXAMINATION: XR CHEST 1 VIEW PORTABLE CLINICAL INFORMATION: INTUBATED COMPARISON: No prior chest radiographs TECHNIQUE: AP view of the chest was obtained. FINDINGS: Tip of endotracheal tube projects 5.7 cm above the ayah. NG tube courses below the left hemidiaphragm out of field of view. The lungs are well-expanded. No focal consolidation or opacities. No pneumothorax. No pleural effusions. Normal sized cardiomediastinal silhouette.. No acute osseous abnormalities. IMPRESSION: Appropriate position of endotracheal and NG tube.. This result with regards to endotracheal tube placement was discussed with Dr. Dagoberto GONZALEZ by telephone at 09/16/2024 11:15 PM EST and it was ascertained that the content and urgency of the report was understood at the time of direct communication. Interpreted by: Jose Ramon Comer DO Army Manager I personally reviewed the images and the resident's preliminary report and AGREE with the report as it is now presented ([email or web address]). Adeel Enrique DO IMG DIAGNOSTIC IMAGI NG ORDERABLES * B-Hydroxybutyrate (09/16/2024 6:08 PM EST) B-Hydroxybutyrate 0.06 <0.28 mmol/L 09/16/2024 7:25 PM EST [facility] Comment: In the presence of uncontrolled diabetes, serum beta-hydroxybutyrate levels greater than or equal to 3.80 mmol/L (patients age 16 and over) or greater than or equal to 3.00 mmol/L (patients under age 16) support a clinical diagnosis of Diabetic Ketoacidosis (DKA) - Ref: Diabetes Care 31: 643 (2007). Plasma/Serum 09/16/2024 6:08 PM EST 09/16/2024 6:33 PM EST Adeel Enrique DO LAB BLOOD ORDERABLES [address] [address], [address] [address] * (ABNORMAL) Triglycerides (09/16/2024 6:08 PM EST) Triglycerides 311(H) <150 mg/dL 09/16/2024 7:25 PM EST [facility] Blood (Plasma/Serum) 09/16/2024 6:08 PM EST 09/16/2024 6:33 PM EST Adeel Enrique DO LAB BLOOD ORDERABLES Performing Organization Address City/[facility]/[place] [address], [place] [address] * Lipase (09/16/2024 6:08 PM EST) Lipase 13 13 - 60 U/L 09/16/2024 7:25 PM EST [facility] Blood (Plasma/Serum) 09/16/2024 6:08 PM EST 09/16/2024 6:33 PM EST Adeel Enrique DO LAB BLOOD ORDERABLES Performing Organization Address [facility] [place] [address], [place] [address] * (ABNORMAL) Acetaminophen Level (09/16/2024 6:08 PM EST) Acetaminophen Level <5(L) 10 - 30 mg/L 09/16/2024 7:25 PM EST [facility] Blood (Plasma/Serum) 09/16/2024 6:08 PM EST 09/16/2024 6:33 PM EST Adeel Enrique DO LAB BLOOD ORDERABLES Performing Organization Address City/[facility]/[place] [address], [place] [address] * (ABNORMAL) Salicylate Level (09/16/2024 6:08 PM EST) Salicylate, Serum <1(L) 15 - 30 mg/dL 09/16/2024 7:25 PM EST [facility] Plasma/Serum 09/16/2024 6:08 PM EST 09/16/2024 6:33 PM EST Adeel Enrique DO LAB BLOOD ORDERABLES [facility] [address] [place] [address], [facility] [address] [place] [address] from Last 3 Months Advance Directives * Full Code (Latest Code Status on File) Date Activated Date Inactivated Comments 09/16/2024 9:32 PM Healthcare Agents on File Name Relationship Healthcare Agent Relationshi p Communication Tonia Calzada Parent 4. Next of Kin (Spouse, Adult Child, Parent, Adult Sibling, Grandparent) Dominic Calzada Parent 4. Next of Kin (Spouse, Adult Child, Parent, Adult Sibling, Grandparent)
--- OUTSIDE RECORDS SUMMARY | 2024-12-09 22:39 | XMS_ITS | Encounter Summary ---
Author Organization [facility] [place] [address] Care Team Providers Care Brush Holder Inspector Name Role Phone Rupert Flores MD Primary Care Pr ovider Encounter Details Date Type Department Care Team (Late st Contact Info) Description 11/15/2024 Nurse Triage Adult Medicine [address] [phone] Rupert Flores MD [address] [place] [id number] Social History Tobacco Use Types Packs/Day Years Used Date Smoking Tobacco: Never Smokeless Tobacco: Never Alcohol Use Standard Drinks/Week Comments Not Currently 0 (1 standard drink = 0.6 oz pur e alcohol) Sex and Gender Information Value Date Recorded Sex Assigned at Not on file Gender Identity Not on file Sexual Orientation Not on file Job Start Date Occupation Industry Not on file Not on file Not on file documented as of this encounter Progress Notes * Natalie Ortiz RN - 11/16/2024 8:49 AM EST Called Tonia and informed her per Dr. Flores; Agree with ER visit. Her symptoms are very concerning. Additionally, I do not have any discharge information from the most recent hospitalization in October. At the very least, I need this to get a better sense of what is going on I have never prescribed Keppra for her. She no showed to her neurology appt on 10/02/24. . Please let the patient/her family know. She is in agreement with this plan and states pt's father will make her go to the ER. Also requested discharge paperwork form both [place] and [facility] via fax with confirmation received. * Rupert Flores MD - 11/15/2024 5:57 PM EST Agree with ER visit. Her symptoms are very concerning. Additionally, I do not have any discharge information from the most recent hospitalization in October. At the very least, I need this to get a better sense of what is going on I have never prescribed Keppra for her. She no showed to her neurology appt on 10/02/24. . Please let the patient/her family know. Thank you * Natalie Ortiz RN - 11/15/2024 4:05 PM EST They were instructed to take her to the ER for further evaluation and treatment. They are not in agreement with this plan stating she will refuse to go. Reason for Disposition [1] SEVERE anxiety (e.g., extremely anxious with intense emotional symptoms such as feeling of unreality, urge to flee, unable to calm down; unable to cope or function) AND [2] not better after 10 minutes of reassurance and Care Advice Answer Assessment - Initial Assessment Questions 1. CONCERN: Did anything happen that prompted you to call today? Pt is experiencing auditory and visual hallucinations since yesterday 2. ANXIETY SYMPTOMS: Can you describe how you (your loved one; patient) have been feeling? (e.g.,tense, restless, panicky, anxious, keyed up, overwhelmed, sense of impending doom). Pt reports feeling restless and anxious. 3. ONSET: How long have you been feeling this way? (e.g., hours, days, weeks) 24 hours 4. SEVERITY: How would you rate the level of anxiety? (e.g., 0 - 10; or mild, moderate, severe). Her anxiety is currently severe. She thinks the neighbors from across the street are coming over to smash her windows. She is supposed to be taking anti seizure medications and anxiety medications but they are unsure if she is taking her medications. 5. FUNCTIONAL IMPAIRMENT: How have these feelings affected your ability to do daily activities? Have you had more difficulty than usual doing your normal daily activities? (e.g., getting better, same, worse; self-care, school, work, interactions) She has a functional impairment. 6. HISTORY: Have you felt this way before? Have you ever been diagnosed with an anxiety problem in the past? (e.g., generalized anxiety disorder, panic attacks, PTSD). If Yes, ask: How was this problem treated? (e.g., medicines, counseling, etc.) Pt was in [facility] prior to Thanksgiving on life support for 3 days r/t seizures. 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 7. RISK OF HARM - SUICIDAL IDEATION: Do you ever have thoughts of hurting or killing yourself? IfYes, ask: Do you have these feelings now? Do you have a plan on how you would do this? No SI/HI 8. TREATMENT: What has been done so far to treat this anxiety? (e.g., medicines, relaxation strategies). What has helped? Unknown 9. THERAPIST: Do you have a counselor or therapist? If Yes, ask: What is their name? Yes but they do not know who 10. POTENTIAL TRIGGERS: Do you drink caffeinated beverages (e.g., coffee, osei, teas), and how much daily? Do you drink alcohol or use any drugs? Have you started any new medicines recently? Alcohol abuse 11. PATIENT SUPPORT: Who is with you now? Who do you live with? Do you have family or friends who you can talk to? Her mother and her father 12. OTHER SYMPTOMS: Do you have any other symptoms? (e.g., feeling depressed, trouble concentrating, trouble sleeping, trouble breathing, palpitations or fast heartbeat, chest pain, sweating, nausea, or diarrhea) Paranoia and visual/auditory hallucinations 13. : Is there any chance you are ? When was your last menstrual period? No. Protocols used: Anxiety and Panic Attack-A-AH * Eileen Mccord - 11/15/2024 3:22 PM EST Patient call requires triage: Symptoms patient is presenting: PT mother is calling with concern, stating PT has been seeing and hearing things, she think people on her phone are listening to her How long has patient had these symptoms?: For ALL patients calling to schedule any appointment (routine, sick visit, follow up, consult, etc.) in the outpatient setting please ask the following questions: Do you have fever of higher than 101, sore throat with difficulty swallowing or severe shortness ofbreath? no If YES to any of these above symptoms, send a message to triage and do not book. Red dot. If no, an audio or video visit should be booked. Have you had close contact with someone with Coronavirus in the last 14 days? no Have you traveled abroad? no Have you traveled recently to another state outside of [place], [place], [place], [place], [place], [place], [place]? no o If yes, did you quarantine for 14 days or have a negative covid test? no If yes to any of the above, patient is not to be scheduled in office until after 14 day quarantine or negative covid test. If pain or injury related was it due to an accident at work or from a motor vehicle accident? If yes, date of accident/Injury: No If yes, gather 3rd libertarian insurance information Third Republican Information: not applicable PCP: Rupert Flores MD Payor: / No coverage found. documented in this encounter Plan of Treatment Upcoming Encounters Date Type Department Care Team (Late st Contact Info) Description 12/26/2024 9:15 AM EST Ancillary Procedure [facility] [address] [place] [address] 01/12/2025 9:00 AM EDT Consult [facility] [address] [facility] [address] [place] [phone] So Malcolm MD [address] [place] [phone] documented as of this encounter Visit Diagnoses Not on filedocumented in this encounter Care Teams Brush Holder Inspector Relationship Specialty Start Date End Date Rupert Flores MD [address] [place], [place] PCP - General Internal Medicine 05/17/22 documented as of this encounter
--- OUTSIDE RECORDS SUMMARY | 2024-12-09 22:39 | XMS_ITS | Encounter Summary ---
Author Organization [facility] Address [address] [place] [address] Care Team Providers Care Family Resource Specialist Name Role Phone Jose Cheek MD Primary Care Provider Unavailab Philip Winchester MD Primary Care Provider Violet Dockery MD Primary Care Provider UnaRupert Munoz MD Primary Care Provider + Encounter Details Date Type Department Care Team Description 05/22/2014 Orders Only OBGYN - [facility] [address] [place] [address] Social History Tobacco Use Types Packs/Day Years Used Date Smoking Tobacco: Never Smokeless Tobacco: Never Alcohol Use Standard Drinks/Week Comments Yes 0 (1 standard drink = 0.6 oz pur e alcohol) 2 drinks/wk Alcohol Habits Answer Date Recorded How often [...] on filedocumented in this encounter Care Teams Family Resource Specialist Relationship Specialty Start Date End Date Jose Cheek MD PCP - General Internal Medicine 08/26/12 08/08/14 Philip Sosa MD PCP - General Internal Medicine 08/09/14 Violet Tyson MD PCP - General Internal Medicine 08/29/14 05/16/22 Rupert Flores MD [address] [place] [address] PCP - General Internal Medicine 05/17/22 documented as of this encounter
--- OUTSIDE RECORDS SUMMARY | 2024-12-09 22:39 | XMS_ITS | Encounter Summary ---
Author Organization [facility] Address [address] [place] [address] Care Team Providers Care Spray Painter Name Role Phone Violet Tyson MD Primary Care Provider Rupert Wahl MD Primary Care Provider + Reason for Visit * Reason Comments E-prescribe Rx Request Encounter Details Date Type Department Care Team Description 02/22/2020 Refill Medicine/Pediatrics [address] [phone] Violet Tyson MD E-prescribe Rx Request Social History Tobacco Use Types Packs/Day Years Used Date Smoking Tobacco: Never Smokeless Tobacco: Never Alcohol Use Standard Drinks/Week Comments Yes 0 (1 standard drink = 0.6 oz pur e alcohol) detox 01/2019 Alcohol Habits Answer Date Recorded How often [...] on file documented as of this encounter Miscellaneous Notes * Telephone Encounter - Rosario Rodriguez C.M.A. - 02/22/2020 11:01 AM EDT Please consider refill for pt. DL * Telephone Encounter - Isaias Hinkle M.A. - 02/22/2020 10:07 AM EDT Sent to FAMILY MANAGER * Telephone Encounter - Jazlyn Trejo - 02/22/2020 8:49 AM EDT Patient would like script to be: E-PRESCRIBED/FAXED TO PHARMACY WHEN WAS THE PATIENT'S LAST APPOINTMENT IN ADULT MEDICINE? 02/22/19 WHEN WAS THE LAST TIME THE PATIENT SAW THEIR PCP? 11/22/07 Does patient have an upcoming appointment? No[facility] to refill request. Appt due (THE MEDICATION REQUESTED IS ON THE MED LIST ABOVE) All of the medications requested were on the CURRENT MEDS list Did you check the Pharmacy information above?: NO Patient wants: 30 -day supply Is this a mail order prescription request ? NO If the refill is from a FAXED refill request what is the RX # listed on the fax? N/A Patients current insurance carrier is: Payor: [facility] / [facility]1024+/[place] / Product Type: HMO [id number] documented in this encounter Plan of Treatment Not on file documented as of this encounter Visit Diagnoses Not on filedocumented in this encounter Care Teams Spray Painter Relationship Specialty Start Date End Date Violet Tyson MD PCP - General Internal Medicine 08/29/14 05/16/22 Rupert Flores MD [address] [place] [address] PCP - General Internal Medicine 05/17/22 documented as of this encounter
--- OUTSIDE RECORDS SUMMARY | 2024-12-09 22:39 | XMS_ITS | Encounter Summary ---
Author Organization [facility] Address [address] [place] [address] Care Team Providers Care Integrated Program Teacher Name Role Phone Violet Tyson MD Primary Care Provider Rupert Wahl MD Primary Care Provider + Encounter Details Date Type Department Care Team Description 02/28/2020 [facility] Medical Records [address] [place], [place] [id number] [place] [address] Social History Tobacco Use Types Packs/Day Years [...] on filedocumented in this encounter Care Teams Integrated Program Teacher Relationship Specialty Start Date End Date Violet Tyson MD PCP - General Internal Medicine 08/29/14 05/16/22 Rupert Flores MD [address] [place] [id number] PCP - General Internal Medicine 05/17/22 documented as of this encounter
--- OUTSIDE RECORDS SUMMARY | 2024-12-09 22:39 | XMS_ITS | Encounter Summary ---
Author Organization [facility] [place] [address] Care Team Providers Care Imaging Clerk Name Role Phone Rupert Flores MD Primary Care Pr ovider Reason for Visit * Reason Onset Date Comments Panic Attack 11/17/2024 Encounter Details Date Type Department Care Team ([facility] st Contact Info) Description 11/17/2024 Telephone Adult Medicine [address] [phone] Rupert Flores MD [address] [place] [id number] Panic Attack Social History Tobacco Use Types Packs/Day Years [...] as of this encounter Progress Notes * Christiana Howard RN - 12/05/2024 8:47 AM EST Pt seen on 11/28/2024 with Neftaly Rabago. Encounter closed. * Natalie Ortiz RN - 11/17/2024 2:45 PM EST I left a message for the pt to call the office at . She was instructed to go to the ER on 11/15/24 r/t same symptoms. * Eileen Mccord - 11/17/2024 2:39 PM EST Patient call requires triage: Symptoms patient is presenting: PT has been having panic attacks and hallucinations and hearing things that aren't there. How long has patient had these symptoms?: 1 week For ALL patients calling to schedule any [...] traveled recently to another state outside of [place], [place], [place], [place], [place], [place], [place]? no o If yes, did you quarantine [...] of accident/Injury: No If yes, gather 3rd alliance party insurance information Third Constitution Party Information: not applicable PCP: Rupert Flores MD Payor: / No coverage found. documented in this encounter Plan of Treatment Upcoming Encounters Date Type Department Care Team (Late st Contact Info) Description 12/26/2024 9:15 AM EST Ancillary Procedure [facility] - [address] [place] [address] 01/12/2025 9:00 AM EDT Consult [facility] [address] [place] [phone] So Malcolm MD [address] [place] [phone] documented as of this encounter Visit Diagnoses Not on filedocumented in this encounter Care Teams Imaging Clerk Relationship Specialty Start Date End Date Rupert Flores MD [address], [place] PCP - General Internal Medicine 05/17/22 documented as of this encounter
--- OUTSIDE RECORDS SUMMARY | 2024-12-09 22:39 | XMS_ITS | Encounter Summary ---
Author Organization [facility] Address [address] [place] [address] Care Team Providers Care Quilt Stuffer Name Role Phone Violet Tyson MD Primary Care Provider Rupert Wahl MD Primary Care Provider + Encounter Details Date Type Department Care Team Description 04/30/2015 Forest Fire Control Officer Report Medical Records [address] [place] [address] Edilberto Shearer MD Social History Tobacco Use Types Packs/Day Years [...] on filedocumented in this encounter Care Teams Quilt Stuffer Relationship Specialty Start Date End Date Violet Tyson MD PCP - General Internal Medicine 08/29/14 05/16/22 Rupert Flores MD [address] [place] [id number] PCP - General Internal Medicine 05/17/22 documented as of this encounter
--- OUTSIDE RECORDS SUMMARY | 2024-12-09 22:39 | XMS_ITS | Encounter Summary ---
Author Organization [facility] Address [address] [place] [address] Care Team Providers Care Take Off Man Name Role Phone Rupert Flores MD Primary Care Provider + Encounter Details Date Type Department Care Team Description 05/31/2023 Laboratory Equipment Cleaner Report Medical Records [address] [place] [address] [facility] Social History Tobacco Use Types Packs/Day Years [...] on filedocumented in this encounter Care Teams Take Off Man Relationship Specialty Start Date End Date Rupert Flores MD [address] [place] [id number] PCP - General Internal Medicine 05/17/22 documented as of this encounter
--- OUTSIDE RECORDS SUMMARY | 2024-12-09 22:39 | XMS_ITS | Encounter Summary ---
Author Organization [facility] Address [address] [place] [address] Care Team Providers Care Prison Psychiatrist Name Role Phone Rupert Flores MD Primary Care Provider + Encounter Details Date Type Department Care Team Description 02/02/2023 Telephone Adult Medicine [facility] [address] [place] [address] Rupert Flores MD [address] [place] [address] Social History Tobacco Use Types Packs/Day Years [...] file Not on file Not on file COVID-19 Exposure Response Date Recorded In the last 10 days, have yo u been in contact with someone who was confirmed or suspected to have Coronavirus/COVID-19? No / Unsure 02/03/2023 8:54 AM EDT documented as of this encounter Plan of Treatment Not on file documented as of this encounter Visit Diagnoses Not on filedocumented in this encounter Care Teams Prison Psychiatrist Relationship Specialty Start Date End Date Rupert Flores MD [address] [place] [address] PCP - General Internal Medicine 05/17/22 documented as of this encounter
--- OUTSIDE RECORDS SUMMARY | 2024-12-09 22:39 | XMS_ITS | Encounter Summary ---
Author Organization [facility] Address [address] [place] [address] Care Team Providers Care Gear Setter Name Role Phone Rupert Flores MD Primary Care Provider + Encounter Details Date Type Department Care Team Description 03/22/2024 Hospital Medical Records [address] [place] [address] Social History Tobacco Use Types Packs/Day Years [...] on filedocumented in this encounter Care Teams Gear Setter Relationship Specialty Start Date End Date Rupert Flores MD [address] [place] [address] PCP - General Internal Medicine 05/17/22 documented as of this encounter
--- OUTSIDE RECORDS SUMMARY | 2024-12-09 22:39 | XMS_ITS | Encounter Summary ---
Author Organization [facility] [place] [address] Care Team Providers Care Surveyor Instrument Assistant Name Role Phone Rupert Flores MD Primary Care Pr ovider Encounter Details Date Type Department Care Team (Late st Contact Info) Description 11/15/2024 Telephone Adult Medicine [address] [phone] Natalie Ortiz, [place] Social History Tobacco Use Types Packs/Day Years [...] as of this encounter Plan of Treatment Upcoming Encounters Date Type Department Care Team (Late Contact Info) Description 12/26/2024 9:15 AM EST Ancillary Procedure [facility] - [address] [phone] 01/12/2025 9:00 AM EDT Consult [facility] [phone] So Malcolm MD [address] [facility] [address] [phone] documented as of this encounter Visit Diagnoses Not on filedocumented in this encounter Care Teams Surveyor Instrument Assistant Relationship Specialty Start Date End Date Rupert Flores MD [address] [place], [place] PCP - General Internal Medicine 05/17/22 documented as of this encounter
--- OUTSIDE RECORDS SUMMARY | 2024-12-09 22:39 | XMS_ITS | Encounter Summary ---
Author Organization [facility] Address [address] [place] [address] Care Team Providers Care Supply Chain Consultant Name Role Phone Violet Tyson MD Primary Care Provider Rupert Wahl MD Primary Care Provider + Encounter Details Date Type Department Care Team Description 02/05/2017 [facility] Medical Records [address] [place] [address] Emiliano Smith MD Social History Tobacco Use Types Packs/Day [...] on filedocumented in this encounter Care Teams Supply Chain Consultant Relationship Specialty Start Date End Date Violet Tyson MD PCP - General Internal Medicine 08/29/14 05/16/22 Rupert Flores MD [address] [place] [id number] PCP - General Internal Medicine 05/17/22 documented as of this encounter
--- OUTSIDE RECORDS SUMMARY | 2024-12-09 22:39 | XMS_ITS | Encounter Summary ---
Author Organization [facility] [place] [address] Care Team Providers Care Medical Laboratory Specialist Name Role Phone Rupert Flores MD Primary Care Pr ovider Encounter Details Date Type Department Care Team (Late st Contact Info) Description 11/15/2024 Telephone Adult Medicine [address] [phone] Natalie Ortiz, RN Social History Tobacco Use Types Packs/Day Years [...] Progress Notes * Natalie Ortiz RN - 11/15/2024 5:07 PM EST I left a message for the pt to call the office at . documented in this encounter Plan of Treatment Upcoming Encounters Date Type Department Care Team (Late st Contact Info) Description 12/26/2024 9:15 AM EST Ancillary Procedure [facility] - [address] [place] [phone] 01/12/2025 9:00 AM EDT Consult [facility] [place] [address] [place] [address] So Malcolm MD [address] [place] [phone] documented as of this encounter Visit Diagnoses Not on filedocumented in this encounter Care Teams Medical Laboratory Specialist Relationship Specialty Start Date End Date Rupert Flores MD [address] [place], [place] PCP - General Internal Medicine 05/17/22 documented as of this encounter
--- OUTSIDE RECORDS SUMMARY | 2024-12-09 22:39 | XMS_ITS | Encounter Summary ---
Author Organization [facility] Address [address] [place] [address] Care Team Providers Care Senior Communications Engineer Name Role Phone Violet Tyson MD Primary Care Provider Rupert Wahl MD Primary Care Provider + Encounter Details Date Type Department Care Team Description 02/06/2017 [facility] Medical Records [address] [place] [address] Emiliano Smith MD Social History Tobacco Use [...] on filedocumented in this encounter Care Teams Senior Communications Engineer Relationship Specialty Start Date End Date Violet Tyson MD PCP - General Internal Medicine 08/29/14 05/16/22 Rupert Flores MD [address] [place] [id number] PCP - General Internal Medicine 05/17/22 documented as of this encounter
--- OUTSIDE RECORDS SUMMARY | 2024-12-09 22:39 | XMS_ITS | Encounter Summary ---
Author Organization [facility] [place] [address] Care Team Providers Care Finish Sander Name Role Phone Rupert Flores MD Primary Care Pr ovider Reason for Referral * Cardiac Stress Testing (Routine) - Authorized Specialty Diagnoses / Procedures Referred By Contac t Referred To Contact Cardiology Diagnoses Chest pain, unspecified type Procedures Exercise stress test Smita Rabago PA [address] [place] [address] [facility] Referral ID Status Reason Start Date Expiration Date V isits Requested Visits Authorized [id number] Authorized 11/28/2024 11/28/2025 1 1 * Consultation (Urgent) - Authorized Specialty Diagnoses / Procedures Referred By Contac t Referred To Contact Neurology Diagnoses Seizure disorder (CMS/HCC) Smita Rabago PA [address] [place] [address] So Malcolm MD [address] [place] [phone] Referral ID Status Reason Start Date Expiration Date Visits Requested Visits Authorized [id number] Authorized Specialty Services Required 11/28/2024 11/28/2025 1 1 Reason for Visit * Reason Comments Annual Exam Last pe 2020, last o bgyn 2020, last vision 2023, last dentist 2023, last tdap 2019, last flu Encounter Details Date Type Department Care Team (Late st Contact Info) Description 11/28/2024 12:30 PM EST Office Visit Adult Medicine [address] [id number] Smita Rabago PA [address] [place] [address] Annual physical exam (Primary Dx); Seizure disorder (CMS/HCC); Anxiety and depression; Insomnia, unspecified type; Chest pain, unspecified type Social History Tobacco Use Types Packs/Day Years [...] on file documented as of this encounter Last Filed Vital Signs Vital Sign Reading [...] Mass Index 20.3 11/28/2024 12:15 PM EST documented in this encounter Ordered Prescriptions Prescription Sig Dispensed Refills Start Date End Da te levETIRAcetam (KEPPRA) 750 mg tablet Take 1 tablet (750 mg total) by mouth 2 (two) times a day. 60 tablet 11/28/2024 QUEtiapine (SEROquel) 50 mg tablet Take 1 tablet (50 mg total) by mouth at bedtime. 30 each 2 11/28/2024 topiramate (TOPAMAX) 25 mg tablet Take 1 tablet (25 mg total) by mouth at bedtime. 30 each 2 11/28/2024 02/26/2025 documented in this encounter Progress Notes * RAFAEL Robertson - 11/28/2024 12:30 PM EST NEUROLOGY You have been referred to [facility] [address] [address], [address], [place] by Rupert Flores MD. [phone] (Missed appointment 10/02/24) Below is a list of our community resources as we discussed. Behavioral Health Resources/Support for Adults Emergency Crises Services, Psychiatric Crisis Services [place] [facility] [address] [place], [place] [facility] Crisis Team [address] [place], [place] [facility] main number [facility] [place] [address] [facility] Therapy & Psychiatry Walk-In Program Mon-Fri: 10am-Noon [address] [place], [place] Intake Line: [phone] Locations in [facility] Therapy & Psychiatry Walk-in Program Mon-Fri: 8am-5pm [address] [place], [place] Intake Line: [phone] Clinical Support [facility] Therapy & Psychiatry [email or web address] [place]: [phone] [place]: [phone] [place]: [phone] [place]: [phone] [facility] Therapy & Psychiatry [email or web address] Intake Line: [phone] Locations: [facility] Therapy only [phone] [address] [facility] Outside of [facility] Psychiatric Care Providers Cristy Solares APRN [facility] ([facility]) [address] [place], [place] [address] [place] [address] [phone] Feli Arriaga MD [facility] ([facility]) [address] [place] [address] [place] [address] [phone] Jesus Queen CH[facility] [address] [facility], [address] [place] [address] [place] [address] , Mercy Lopez APRN Clinical & Support Options (PROCESS SPECIALIST) [address], [facility]. [address] [place] [address] [place] [address] , [facility] Medical [facility] [address], [address] [place] [address] [place] [address] , [facility] [address], [address] [facility], [address] [place] [address] [place] [address] , Karma Siu APRN [facility] [address] [facility] [address] 2 [facility] [address] [place] [address] [place] [address] , Huyen Pollock MD [facility] [address] [facility], [address] 6 [facility] [address] [place] [address] [place] [address] , [facility] ACCE[facility]ING [facility] (Jabari De La Cruz Manger) [address] [facility] / [address], [place] [address] & [phone] [facility] (INTAKE) [facility] Crisis [address] [facility] [address], [facility] [address] [facility] Crisis [address] [facility] / [address], [facility] [address] Clinical Support Options (PROCESS SPECIALIST) [address] [place] [address]. 102/3rd floor, [facility] [address] [address] [facility] 40 [facility] [address] [facility] 476 [facility]/[address], [facility] [address] [facility] 1233 [facility] [address] [facility] [address] / [address], [place] [address] Dr. Cayla Nieto [address], [place] [address] [facility] @ [facility] 42 [facility] [address] [facility] 147 [facility] [address] [address] Biju Stern [address] [facility] [address] [facility] ACCEPTING [facility]care (Drug addiction, no meds) & Group Therapy [address] [facility]. [address], [place] [address] [facility] Services [address] [facility]. [address], [facility] [address] [facility] 30 [facility] [address] [facility] 2 [facility] [address] Service [facility] 129 [facility] [address] Outreach: [phone] 50 [facility] [address] Therapy: [phone] 55 [facility] [address] Therapy: [phone] Service [facility] 400 [facility] [address] Therapy: [phone] [facility] [place] Society for the Prevention of Cruelty to Children (MSPCC) [address] [facility] [address] [address] Chacha Mccoy (Psychiatrist) 303 [facility] [address] [facility] ACCEPTING MEDICARE [email or web address] Melody Howard [address] [place] [address] [place] [address] OTHER SERVICES [facility] 155 [facility] [id number] [facility] [address] [place] [address] Therapeutic Associates No insurance, Springer, Check or Credit 94 [facility], [facility] [phone] * RAFAEL Robertson - 11/28/2024 12:30 PM EST CHIEF COMPLAINT: Annual Exam (Last pe 2020, last obgyn 2020, last vision 2023, last dentist 2023, last tdap 2019, last flu) IDENTIFIER:Sabine Barraza is a here today for evaluation of general medical health HPI: Sabine Barraza is here today for routine physical exam This is my initial visit with patient, she is accompanied by her mom today She will self refer for dental, eye and CHAINSTITCH PANTS OUTSEAMER exams (due for all) She declines flu shot today Last visit with adult medicine in July Saw PCP for hospital follow-up - she was admitted to [facility] - presented after foundbeing found unresponsive, seemingly postictal, had seizure in front of paramedics (lasting 2 minutes), given 2mg IM midazolam, and 2mg IV midazolam after IV access obtained. Arrived in ED altered mental status, unable to provide history. She had another seizure in ER, subsequently intubated and admitted to ICU. Labs showed significant hyponatremia (114), hypokalemia (2.4), chloride (54), anion gap (29), lactic acid (11.6), CK (367), CRP (1), BNP (326). TSH normal. Alcohol level negative, UDS +benzo. Nephrology consulted, treated with IV 3% saline, fluid restriction, urea powder and sodium tablets, noted to have metabolic encephalopathy post extubation that subsequently resolved and she was discharged home At follow-up in July, she reported last seizure episode was about a year ago (not related to alcohol withdrawal). Reported it had been years since last seizure related to alcohol withdrawal - reported last alcohol drink was March 2024. She had been on Vivitrol injections prior through [place] (wanting to resume per July visit, was told to contact previous clinic) She was referred to Neurology, no show to 10/02 appointment She states she was admitted at [facility] in September related to seizures (was transferred from [place] to [place]). She did not follow-up with the office after this, I have no records for review. She states she has not had a seizure since September hospitalization She has been compliant with Keppra 750mg BID (was recently sent a 14 day supply) Migraines - started on Topamax 25mg qhs at last visit, reports some improvement of symptoms but still experiencing migraines Anxiety, depression, insomnia - on sertraline 100mg daily, hydroxyzine 50mg BID PRN anxiety, seroquel 50mg qhs. She was given resources at last visit, has not established with . She denies SI/HI She is reporting intermittent chest pain for months. She denies symptoms currently. She reports pain over left lower chest and central chest when occurring, lasting hours at times. She denies any pattern with symptoms coming on (denies association with exercise/exertion, eating, anxiety/stress). She states chest does feel sore to touch over areas. She denies radiation of pain to jaw, arm, back, abdomen. She denies associated SOB, palpitations, diaphoresis. She vapes. Denies alcohol or drug use,denies family history of CT. Lipid panel in July normal She has been having dryness/dry skin to bilateral hands. Using OTC cream with some relief ROS: GENERAL: No malaise, significant weight loss or fever HEENT: No changes in hearing or vision, nose bleeds or other nasal problems NECK: No lumps, goiter, pain or significant neck swelling RESPIRATORY: No cough, wheezing or shortness of breath CARDIOVASCULAR: SEE HPI. No leg swelling or palpitations BREAST: no lumps, discharge, pain or change in skin GI: No abdominal discomfort, blood in stools or black stools : No dysuria, frequency or incontinence CHAINSTITCH PANTS OUTSEAMER: No abnormal vaginal bleeding or abnormal vaginal discharge. MUSCULOSKELETAL: No joint pain or swelling, back pain, or muscle pain. SKIN: No lesions, rash or itching PSYCH: SEE HPI HEMATOLOGY/LYMPHOLOGY No prolonged bleeding, easy bruisability or swollen nodes ENDOCRINE: No cold or heat intolerance, polyuria, polydipsia or goiter. NEURO: No persistent headache, syncope, seizures, weakness or numbness PAST MEDICAL HISTORY: Patient Active Problem List Diagnosis Date Noted Chronic migraine without aura without status migrainosus, not intractable 07/12/2024 Duodenitis determined by biopsy 07/12/2024 Fatty liver 07/12/2024 Seizure disorder (CMS/HCC) 07/12/2024 Glaucoma 02/03/2023 Subclinical hypothyroidism 02/03/2023 Insomnia 09/22/2021 Alcohol abuse 02/22/2019 Anxiety and depression 02/22/2019 Scoliosis 09/04/2010 Attention deficit hyperactivity disorder (ADHD) 12/29/2005 IMMUNIZATIONS/INJECTIONS: Most Recent Immunizations Administered Date(s) Administered DTP 10/22/1994 [id number] (Pentacel) 2mo to less than 5yo 01/08/1992 HPV, Quadrivalent 11/29/2019 Hepatitis B (Bjnmijs-J-Nddua, Recombivax HB-Adult) 19yo and older 01/25/2003 MMR, measles mumps and rubella Live (Priorix; M-M-R II) 12mo and older 10/22/1994 OPV 10/22/1994 Td Tetanus diptheria (Tdvax) 7yo and older 08/10/2002 Td, Unspecified 08/10/2002 Tdap Tetanus diptheria acellular pertussis (Boostrix; Adacel) 7yo and older 08/04/2020 Varicella live (Varivax) 12mo and older 10/13/1995 HEALTH MAINTENANCE: Health Maintenance Topic Date Due Pneumococcal Vaccine: Pediatrics (0 to 5 Years) and At-Risk Patients (6 to 64 Years) (1 of 2 - PCV)Never done Hepatitis A Vaccines (1 of 2 - Risk 2-dose series) Never done COVID-19 Vaccine ( - season) Never done Cervical Cancer Screening: HPV 11/29/2024 Influenza Vaccine (1) 04/30/2025 (Originally 07/02/2024) Depression Screening 11/28/2025 Social Influencers of Health Screening 11/28/2025 Cholesterol Screening (Lipid Panel) 07/12/2029 DTaP,Tdap,and Td Vaccines (10 - Td or Tdap) 08/04/2030 HIB Vaccines Completed Hepatitis B Vaccines Completed IPV Vaccines Completed MMR Vaccines Completed HPV Vaccines Completed HIV Screening Completed Hepatitis C Screening Completed Varicella Vaccines Aged Out Meningococcal ACWY Vaccine Aged Out RSV Immunization Patients Under 20 months Aged Out SOCIAL HISTORY: Social History Tobacco Use Smoking status: Never Smokeless tobacco: Never Substance Use Topics Alcohol use: Not Currently FAMILY HISTORY: Family History Problem Relation Name Age of Onset Other cancer Maternal Grandmother skin, alive Other cancer Maternal Grandfather skin, alive Lung cancer Paternal Grandmother with mets to brain Breast cancer Father's side Paternal great aunt (Dad's mom's sister), unsure age Lung cancer Uncle pat smoker, 70s, with mets Ovarian cancer Neg Hx Colon cancer Neg Hx Uterine cancer Neg Hx Prostate cancer Neg Hx ACTIVE MEDICATIONS: Outpatient Medications Marked as Taking for the 11/28/24 encounter (Office Visit) with RAFAEL Robertson Medication Sig Dispense Refill hydrOXYzine HCL (ATARAX) 25 mg tablet Take 2 tablets (50 mg total) by mouth 2 (two) times a day if needed for anxiety. 2 tablets levETIRAcetam (KEPPRA) 750 mg tablet Take 1 tablet (750 mg total) by mouth 2 (two) times a day. 60 tablet 0 magnesium oxide (MAG-OX) 400 mg (241.3 elemental magnesium) tablet Take 1 Tablet by mouth daily. multivitamin (MULTIPLE VITAMINS ORAL) Take 1 Tablet by mouth daily. naltrexone (DEPADE) 50 mg tablet Take 1 tablet (50 mg total) by mouth 1 (one) time each day. omeprazole (PriLOSEC) [address] capsule Take 1 Capsule by mouth daily. QUEtiapine (SEROquel) 50 mg tablet Take 1 tablet (50 mg total) by mouth at bedtime. 30 each 2 senna 8.6 mg tablet sertraline (ZOLOFT) 50 mg tablet Take 2 tablets (100 mg total) by mouth 1 (one) time each day for 14 days. 28 each 0 topiramate (TOPAMAX) 25 mg tablet Take 1 tablet (25 mg total) by mouth at bedtime. 30 each 2 [DISCONTINUED] levETIRAcetam (KEPPRA) 750 mg tablet Take 1 tablet (750 mg total) by mouth 2 (two) times a day for 14 days. 28 each 0 [DISCONTINUED] QUEtiapine (SEROquel) 50 mg tablet Take 1 tablet (50 mg total) by mouth at bedtime for 14 days. 14 each 0 ALLERGIES: Allergies Allergen Reactions Cat Dander Itching Dog Dander Itching Other Itching seasonal PHYSICAL EXAM: Visit Vitals BP 86/52 (BP Location: Left arm, Patient Position: Sitting) Pulse 81 Temp 36.6 ??C (97.8 ??F) (Oral) Resp 14 Ht 1.651 m (65 ) Wt 55.3 kg (122 lb) SpO2 96% BMI 20.30 kg/m?? OB Status Having periods Smoking Status Never BSA 1.6 m?? APPEARANCE: Alert and in no acute distress EYES: PERRLA, conjunctiva and sclera normal. EARS: External ears normal. Canals clear. TMs normal. THROAT: no erythema or exudates NECK: Neck supple, no adenopathy, thyroid symmetric and of normal size HEART: RRR with normal S1 and S2 LUNG: clear to auscultation BREAST (FEMALE): Deferred to electric motor repair supervisor ABDOMEN: Bowel sounds normoactive, no bruits, soft, non-tender, without organomegaly or palpable masses CHAINSTITCH PANTS OUTSEAMER (FEMALE): Deferred to electric motor repair supervisor BACK: No pain to palpation with good flexion and extension EXTREMITIES: Extremities warm and well perfused without clubbing, cyanosis, or edema NEURO: Awake, alert and oriented x 3 SKIN: Skin color, texture, turgor normal LABS/IMAGING: Lab Results Component Value Date CHOL 166 07/12/2024 LDL 81 07/12/2024 HDL 72 07/12/2024 TRIG 65 07/12/2024 IMPRESSION: 1. Annual physical exam 2. Seizure disorder (CMS/HCC) 3. Anxiety and depression 4. Insomnia, unspecified type 5. Chest pain, unspecified type PLAN: 1. Health maintenance: The patient presented for an evaluation of general health. As part of this visit, we reviewed the following issues, which are considered an essential part of preventative health in this age group: - Breast cancer screening for high risk individuals - mammogram not warranted - Cervical cancer testing every 1-3 years - patient is referred for testing - Blood pressure annual screening performed - Cholesterol screening every five years - up to date - Osteoporosis prevention including calcium/vitamin D intake, weight bearing exercise & smokingcessation - Screening for depression - using the PHQ-9 - Recommendations about immunizations - patient is due for Influenza immunization but defers this - Recommendation of an eye exam for glaucoma once in this age range - patient will self-refer - Genetic cancer risk screening - NO INDICATION: Hereditary Cancer Syndrome Risk Assessment completed and evaluated. No indication found for genetic testing at this time. - In addition to reviewing these issues, I have reviewed the following sections of the chart: Past Medical History, Social History, and Social History - Did you have a dental visit in the last 12 months? No Seizure disorder - urgent Neurology referral placed. Will request [facility] records for review (reports hospitalization in September 02 seizure). Denies seizure since. [facility] is running low of Keppra, recent refill sent. Needs to be following with Neurology. Advised to contact office of appt missed in October (office information given) Anxiety, depression, insomnia - continue zoloft, hydroxyzine, seroquel. [facility] resources given to establish Chest pain - EKG obtained in office NSR, no acute ischemia. Symptoms are reproducible at times, butnot always. Will order stress test and CXR. Signs and symptoms that would warrant emergent evaluation discussed Follow-up 3 months Patient verbalized understanding and is in agreement with plan ADDITIONAL ORDERS: Orders Placed This Encounter Procedures XR Chest 2 Views Complete blood count Comprehensive metabolic panel Ferritin Iron and TIBC Vitamin D 25 hydroxy Vitamin B12 Thyroid stimulating hormone with reflex to free t4 and free t3 Ambulatory referral to Neurology ECG 12 lead Tracing Only Exercise stress test XR CHEST 2 VIEWS AMB REFERRAL TO NEUROLOGY STRESS TEST ONLY EXERCISE Today's documentation was made using voice recognition software.This note may contain grammatical errors secondary to this software. RAFAEL Robertson on 11/28/2024 at 1:16 PM EST documented in this encounter Plan of Treatment Upcoming Encounters Date Type Department Care Team (Late st Contact Info) Description 12/26/2024 9:15 AM EST Ancillary Procedure [facility] [address] [place] [id number] 01/12/2025 9:00 AM EDT Consult [facility] [place] [address] [place] [phone] So Malcolm MD [address] [place] [address] Scheduled Orders Name Type Priority Associated Diagnoses Orde r Schedule XR Chest 2 Views Imaging Routine Chest pain, unspecified type Expected: 11/28/2024, Expires: 11/28/2025 ECG 12 lead Tracing Only ECG Routine Chest pain, unspecified type 1 Occurrences starting 11/28/2024 until 11/28/2025 Exercise stress test Cardiac Nuclear Medicine Routine Chest pain, unspecified type 1 Occurrences starting 11/28/2024 until 11/28/2025 Scheduled Referrals Name Type Priority Associated Diagnoses Order Schedule Ambulatory referral to Neurology Outpatient Referral Routine Seizure disorder ([facility]/HCC) 1 Occurrences starting 11/28/2024 until 11/28/2025 documented as of this encounter Visit Diagnoses Diagnosis Annual physical exam- Primary Routine general medical examination at a health care facility Seizure disorder ([facility]) Unspecified epilepsy without mention of intractable epilepsy Anxiety and depression Insomnia, unspecified type Chest pain, unspecified type documented in this encounter Discontinued Medications Medication Sig Discontinue Reason Start Date End Da te topiramate (TOPAMAX) 25 mg tablet Take 1 Tablet by mouth at bedtime for 90 days. Reorder 07/12/2024 11/28/2024 hydrOXYzine HCL (ATARAX) 25 mg tablet Take 1 tablet (25 mg total) by mouth at bedtime for 14 days. 11/17/2024 11/28/2024 levETIRAcetam (KEPPRA) 750 mg tablet Take 1 tablet (750 mg total) by mouth 2 (two) times a day for 14 days. Reorder 11/17/2024 11/28/2024 QUEtiapine (SEROquel) 50 mg tablet Take 1 tablet (50 mg total) by mouth at bedtime for 14 days. Reorder 11/17/2024 11/28/2024 documented as of this encounter Historical Medications * This list may reflect changes made after this encounter. Medication Sig Dispensed Refills Start Date End Date hydrOXYzine HCL (ATARAX) 25 mg tablet Take 2 tablets (50 mg total) by mouth 2 (two) times a day if needed for anxiety. 2 tablets 11/28/2024 naltrexone (DEPADE) 50 mg tablet Take 1 tablet (50 mg total) by mouth 1 (one) time each day. 09/21/2024 added in this encounter Orders Lab Orders Without Results Count Last Ordered D ate First Ordered Date COMPLETE BLOOD COUNT 1 11/28/2024 COMPREHENSIVE METABOLIC PANEL 1 11/28/2024 FERRITIN 1 11/28/2024 IRON AND TIBC 1 11/28/2024 THYROID STIMULATING HORMONE WITH REFLEX TO FREE T4 AND FREE T3 1 11/28/2024 VITAMIN B12 1 11/28/2024 VITAMIN D 25 HYDROXY 1 11/28/2024 documented in this encounter Additional Health Concerns Assessment Noted Time PHQ-9 Depression Total Score: 2 11/28/19 25 12:17 PM EST documented as of this encounter Care Teams Finish Sander Relationship Specialty Start Date End Date Rupert Flores MD [address] [place] [address] PCP - General Internal Medicine 05/17/22 documented as of this encounter
--- OUTSIDE RECORDS SUMMARY | 2024-12-09 22:39 | XMS_ITS | Encounter Summary ---
Author Organization [facility] [place] [address] Care Team Providers Care Candy Starch Mold Printer Name Role Phone Rupert Flores MD Primary Care Pr ovider Reason for Visit * Reason Onset Date Comments Med Refill 11/14/2024 Encounter Details Date Type Department Care Team ([facility] Contact Info) Description 11/14/2024 Telephone Adult Medicine - [address] [phone] Padmini Maradiaga MD [address] [place] [id number] Med Refill Social History Tobacco Use Types Packs/Day Years [...] Notes * Natalie Ortiz RN - 11/15/2024 9:27 AM EST Request for hospital paperwork related to pt's stay in October/ seizure faxed to [facility] @ . Will await paperwork and give to PCP upon arrival. * Rupert Flores MD - 11/15/2024 8:44 AM EST Pls call patient to clarify medication request for keppra, looks like she has an appt with sudhakar in 2 weeks. I do not have her discharge records for review. If she has a neurologist, she should request the keppra from them. Otherwise please let me knowthe dosing of keppra she is on and if possibledischarge summary from hospital stay to get a better sense of the need for this medication. thanks * Padmini Maradiaga MD - 11/14/2024 6:07 PM EST Received message from [employer] service. Pt's sister Delia # [phone] called asking for refill on levitriacetam. I spoke with Delia- tells me Sabine was at [facility] last month for seizure and needs refill on medication. She was informed, I couldn't access the notes from [facility], the medication is not on her current med list- she will need to call PCP office in AM for medication, documented in this encounter Plan of Treatment Upcoming Encounters Date Type Department Care Team (Late st Contact Info) Description 12/26/2024 9:15 AM EST Ancillary Procedure [facility] [address] [facility] [address] [place] [phone] 01/12/2025 9:00 AM EDT Consult [facility] - [place] [address] [facility] [address] [place] [phone] So Malcolm MD [address] [facility] [address] [place] [phone] documented as of this encounter Visit Diagnoses Not on filedocumented in this encounter Care Teams Candy Starch Mold Printer Relationship Specialty Start Date End Date Rupert Flores MD [address] [place], [place] PCP - General Internal Medicine 05/17/22 documented as of this encounter
[2024-12-09 22:44] LABS: MANUAL DIFF FLAG NO
[2024-12-09 22:45] LABS: Basophils Percent Auto 0.5 % (0-2); Eosinophils Percent Auto 0.1 % (0-4); Hemoglobin 15.5 g/dl (12.0-16.0); Imm Gran Abs Auto 0.02 X10*3/uL (0.00-0.03); Imm Gran Pct Auto 0.2 % (0.0-0.4); Lymphocytes Absolute Auto 1.8 X10*3/uL (1.2-4.9); Lymphocytes Percent Auto 20.2 % (20-40); Mean Corpuscular HGB Conc 34.4 g/dl (31.0-35.0); Mean Corpuscular Hemoglobin 27.3 pg (27.0-33.0); Mean Corpuscular Volume 79.4 fL (80.0-98.0); Mean Platelet Volume 8.3 fL (9.4-12.3); Monocytes Absolute Auto 0.5 X10*3/uL (0.1-1.2); Monocytes Percent Auto 5.6 % (2-11); Neutrophils Absolute Auto 6.4 x10*3/uL (2.0-8.3); Neutrophils Percent Auto 73.4 % (45-73); Platelet Count 697 X10*3/uL (160-400); Red Blood Count 5.67 X10*6/uL (4.20-5.50); Red Cell Distribution Width 15.3 % (11.0-16.0); White Blood Count 8.7 X10*3/uL (4.8-10.8)
--- NOTE | 2024-12-09 22:49 | PC.NURSE ---
Patient RAMESH from her parent's house after being dropped off there earlier today by he boyfriend, per EMS clearly intoxicated. Patient thrashing about on the stretcher, demanding ice, shaking her whole body, stating she is going have a seizure . Unable to follow commands. Dr. Arreaga at bedside, verbal order for IM meds given, medicated per orders, see IM restraint paperwork. Patient now resting quietly on stretcher, labs drawn by Vandana LOW. Vitals cycling Q15 mins.
--- NOTE | 2024-12-09 22:55 | MHC.EDTECH ---
Addendum entered by Vandana Gotti 12/09/24 23:23: Locked is the [facility] shelf 3 Original Note: Patient BIBA,pt was thrashing around,not re-directable,pt was placed on the demand generator manager, vitals taken, patient was medicated ,calm at this time labs drawn and sent to lab,seizure pads applied,belongings list completed
--- NOTE | 2024-12-09 22:56 | ED.ALCOHOL ---
HPI - Alcohol General Chief Complaint: ETOH/Substance Use Stated Complaint: etoh, detoxing, hx siezures vomitting Time Seen by Provider: 12/09/24 22:15 Source: EMS Mode of arrival: EMS Limitations: other ( intoxicated) History of Present Illness ED Provider: Dr. Alesha Arreaga HPI narrative: patient comes to the emergency room via ambulance from her parent's house. According to EMS, the patient had been sober for 3 weeks, then patient was tripped up by her boyfriend at her parent's house intoxicated, acting erratic. according to EMS, the family did not report any falls or head injuries. Related Data Home Medications ?Medication ?Instructions ?Recorded ?Confirmed omeprazole 20 mg capsule,delayed 20 mg PO DAILY@0630 06/19/24 09/16/24 release sucralfate 1 gram tablet 1 g PO QID 06/19/24 09/16/24 hydroxyzine HCl 25 mg tablet 25 mg PO DAILY PRN Anxiety 08/29/24 09/16/24 magnesium oxide 400 mg (241.3 mg 400 mg PO DAILY 08/29/24 09/16/24 magnesium) tablet sertraline 100 mg tablet 100 mg PO DAILY 08/29/24 09/16/24 topiramate 25 mg tablet 25 mg PO BEDTIME 08/29/24 09/16/24 quetiapine 50 mg tablet 50 mg PO BEDTIME PRN insomnia 09/16/24 09/16/24 Previous Rx's ?Medication ?Instructions ?Recorded folic acid 1 mg tablet 1 mg PO DAILY #30 tabs 05/24/23 multivitamin (Daily-Laura tablet) 1 tab PO DAILY #30 tabs 05/24/23 Allergies Allergy/AdvReac Type Severity Reaction Status Date / Time Iodinated Contrast Media AdvReac Hives Verified 12/09/24 22:30 [Contrast Dye] Review of Systems Review of Systems: Yes Unobtainable due to mental status and Other ( Intoxicated) PMFSH Past Medical History Medical History Acute respiratory failure Acute hypokalemia Acute hyponatremia Alcohol withdrawal Status epilepticus Alcohol use disorder, severe, dependence Withdrawal seizures Depression Alcoholism Social History Social History Household Members: Spouse and Family Household Members Other:: bf, mom Housing: House Do you presently have visiting nurse or other home services: No Unable to assess alcohol history related to: Unable to respond Alcohol intake: current Alcohol intake frequency: 3 or more drinks per day Alcohol type: hard liquor Comment: pt refused bed alarm Patient Tobacco Use Status: Tobacco use Unknown e-Cigarette/Vaping Use: Currently Using Substance Use Type: Marijuana Advance Directives: No Advance Directives Information Provided: No Do you have a plan to hurt others: No Plan service: No Physical Exam ED Vital Signs: Vital Signs - 24 hr 12/09/24 22:28 12/09/24 22:35 12/09/24 22:50 Temperature 99.4 F Pulse Rate 95 86 100 Respiratory Rate 26 H 24 H 28 H Blood Pressure 152/115 H 134/94 H 139/96 H Pulse Oximetry 98 99 95 Oxygen Delivery Method Room Air Room Air Room Air 12/09/24 23:05 12/09/24 23:20 12/09/24 23:35 Temperature Pulse Rate 108 H 118 H 119 H Respiratory Rate 24 H 23 H 23 H Blood Pressure 129/91 H 120/76 121/73 Pulse Oximetry 95 93 94 Oxygen Delivery Method Room Air Room Air Room Air BMI result Body Mass Index 19.1 Const Other: Appearance: Alert. intoxicated, in coherent Eyes: Pupils equal, round and reactive to light. ENT: Pharynx normal. Neck: Normal inspection. Neck supple. No lymph nodes noted. No crepitus CVS: Normal heart rate and rhythm. Pulses normal. Normal S1 and S2 Respiratory: No respiratory distress. Breath sounds normal. No Wheezing. No rales Abdomen: Soft and nontender. No rigidity. No distention. Skin: Skin warm and dry. Normal skin color. Normal skin turgor. Extremities: No lower extremity edema. No Lacerations. No Rash Neuro: no motor deficits, Moving all extremities. unable to follow commands but CN 2 through 12 grossly intact Psych: intoxicated, agitated, having pseudo seizures draining to hit Her head against the rail of the bed Course Course Course Narrative: on arrival, patient very agitated, trying to hit her head against the side rails, having pseudoseizures with no postictal state in between, patient's nurses tried redirecting the patient. However, patient is too agitated patient was given IM Benadryl 50 mg, Ativan 2 mg and Haldol 5 mg after 1 hour, patient is sleeping comfortably. My interpretation of labs: Patient's white blood cell count within normal limits, platelets a bit elevated, 697, chemistry shows a potassium of 2.9. , magnesium loss pending, LFTs are slightly elevated which is chronic for the patient. ETOH level 439. When patient becomes more awake and sober, we will assess for SI or HI. Physician observation started at 19:20 01:00: Patient is sleeping comfortably. Vitals stable, no seizure-like activity. Sign-out given to my colleague Dr. Bridges Medical Decision Making Differential Diagnosis Differential Diagnoses: The differential diagnosis associated with the presentation includes ( alcohol intoxication, alcohol dependence) Lab Data 12/09/24 22:39 12/09/24 22:39 Labs: Lab Results 12/09/24 Range/Units 22:39 WBC 8.7 (4.8-10.8) X10*3/uL RBC 5.67 H D (4.20-5.50) X10*6/uL Hgb 15.5 D (12.0-16.0) g/dl Hct 45.0 D (37.0-47.0) % MCV 79.4 L (80.0-98.0) fL MCH 27.3 (27.0-33.0) pg MCHC 34.4 (31.0-35.0) g/dl RDW 15.3 (11.0-16.0) % Plt Count 697 H D (160-400) X10*3/uL MPV 8.3 L (9.4-12.3) fL Immature Gran % (Auto) 0.2 (0.0-0.4) % Neut % (Auto) 73.4 H (45-73) % Lymph % (Auto) 20.2 (20-40) % [place] % (Auto) 5.6 (2-11) % Eos % (Auto) 0.1 (0-4) % Baso % (Auto) 0.5 (0-2) % Lymph # (Auto) 1.8 (1.2-4.9) X10*3/uL [place] # (Auto) 0.5 (0.1-1.2) X10*3/uL Eos # (Auto) 0.0 (0.0-0.4) X10*3/uL Baso # (Auto) 0.0 (0.0-0.2) X10*3/uL Abs Immat Gran (auto) 0.02 (0.00-0.03) X10*3/uL Absolute Neuts (auto) 6.4 (2.0-8.3) x10*3/uL Absolute Nucleated RBC 0.000 (0.0-0.012) X10*3/uL Nucleated RBC % (auto) 0.0 (0.0-0.2) /100WBC Sodium 145 (135-145) mmol/L Potassium 2.9 L* D (3.3-5.1) mmol/L Chloride 103 D (96-108) mmol/L Carbon Dioxide 19 L (22-29) mmol/L Anion Gap 26 H (12-20) BUN 8 L (9-16) mg/dL Creatinine 0.77 (0.5-1.4) mg/dL Estim Creat Clear Calc 87.0 Estimated GFR > 60 Random Glucose 152 H (60-115) mg/dL Calcium 9.1 D (8.4-10.2) mg/dL Magnesium 1.7 (1.6-2.6) mg/dL Total Bilirubin 0.3 (0.0-1.0) mg/dL Direct Bilirubin 0.1 (0.0-0.5) mg/dL AST 63 H (5-31) U/L ALT 51 H (0-31) U/L Alkaline Phosphatase 120 H (39-117) U/L Total Protein 8.7 H (6.5-8.0) g/dL Albumin 4.4 (3.5-5.0) g/dL Lipase 8 (8-78) U/L Ethyl Alcohol 439 H* mg/dL Medications Administered Generic Name Dose Route Start Last Admin Trade Name Freq PRN Reason Stop Dose Admin Potassium Chloride 10 meq in 100 mls @ 100 mls/hr 12/09/24 23:30 12/10/24 00:04 Potassium Chloride/H20 IV 12/10/24 03:29 100 mls/hr Q1H ARTURO Administration Discontinued Medications Generic Name Dose Route Start Last Admin Trade Name Freq PRN Reason Stop Dose Admin Diphenhydramine HCl 50 mg 12/09/24 22:23 12/09/24 22:34 Diphenhydramine Hcl 50 Mg/Ml Vial IM 12/09/24 22:24 50 mg ONCE ONE Administration Haloperidol Lactate 5 mg 12/09/24 22:23 12/09/24 22:33 Haloperidol Lactate 5 Mg/Ml Vial IM 12/09/24 22:24 5 mg STAT STA Administration Lorazepam 2 mg 12/09/24 22:23 12/09/24 22:34 Lorazepam 2 Mg/Ml Vial IM 12/09/24 22:24 2 mg STAT STA Administration Discharge Plan Discharge Clinical Impression: Alcoholic intoxication Patient Disposition: Still a Patient Prescriptions: No Action multivitamin [Daily-Laura] Tablet 1 tab PO DAILY Qty: 30 0RF folic acid 1 mg Tablet 1 mg PO DAILY Qty: 30 0RF sucralfate 1 gram tablet 1 g PO QID omeprazole 20 mg capsule,delayed release(DR/EC) 20 mg PO DAILY@0630 quetiapine 50 mg tablet 50 mg PO BEDTIME PRN (Reason: insomnia) sertraline 100 mg tablet 100 mg PO DAILY topiramate 25 mg tablet 25 mg PO BEDTIME hydroxyzine HCl 25 mg tablet 25 mg PO DAILY PRN (Reason: Anxiety) magnesium oxide 400 mg (241.3 mg magnesium) tablet 400 mg PO DAILY Print Language: Vietnamese
[2024-12-09 23:14] LABS: Alanine Aminotransferase 51 U/L (0-31); Albumin Level 4.4 g/dL (3.5-5.0); Alkaline Phosphatase 120 U/L (39-117); Anion Gap 26 (12-20); Aspartate Amino Transferase 63 U/L (5-31); Bilirubin Direct 0.1 mg/dL (0.0-0.5); Bilirubin Total 0.3 mg/dL (0.0-1.0); Blood Urea Nitrogen 8 mg/dL (9-16); Calcium 9.1 mg/dL (8.4-10.2); Carbon Dioxide 19 mmol/L (22-29); Chloride 103 mmol/L (96-108); Estimated Glomerular Filt Rate > 60; Ethanol 439 mg/dL; Glucose Random 152 mg/dL (60-115); Lipase 8 U/L (8-78); Potassium 2.9 mmol/L (3.3-5.1); Sodium 145 mmol/L (135-145); Total Protein 8.7 g/dL (6.5-8.0)
[2024-12-09 23:28] LABS: Magnesium 1.7 mg/dL (1.6-2.6)
[2024-12-10] VITALS (9 sets, daily range): BP systolic 110–146; BP diastolic 71–95; PULSE 100–124; RESP 16–27; TEMP 36.7–37.2; O2SAT 94–100
[2024-12-10] MEDS: Potassium Chloride/H20 10 MEQ/100 ML PIGGYBACK 100 MEQ IV (00:04)
[2024-12-10] MEDS: Lactated Ringers 1,000 ML 250 ML IV (01:45)
[2024-12-10] MEDS: Potassium Chloride Packet 20 MEQ PACKET 60 MEQ PO (03:59)
--- NOTE | 2024-12-10 04:38 | PC.NURSE ---
assisted to bedside commode without incident. able to tolerate PO well. no distress. cont to reinforce safety. ED attending to reevaluate to determine dispo.
[2024-12-10] MEDS: LORazepam 2 MG/ML VIAL 1 MG IVPUSH (05:11)
[2024-12-10] MEDS: ondansetron HCL 4 MG/2 ML VIAL IVPUSH (05:11)
[2024-12-10 07:11] LABS: Amphetamine Screen Urine Not Detected (Not Detect); Barbiturates, Urine Not Detected (Not Detect); Benzodiazepines Screen Urine Not Detected (Not Detect); Buprenorphine Scr Not Detected (Not Detect); Cannabinoid Screen Urine Not Detected (Not Detect); Cocaine Screen Urine POSITIVE (Not Detect); Fentanyl, urine Not Detected (Not Detect); Methadone Screen, Urine Not Detected (Not Detect); Opiate Screen Urine Not Detected (Not Detect); Oxycodone Screen Urine Not Detected (Not Detect); Phencyclidine Screen Urine Not Detected (Not Detect)
--- NOTE | 2024-12-10 07:30 | PC.NURSE ---
Assumed care of pt at 0700. Pt resting quietly in bed, respirations even and unlabored, no increased wob/sob noted, maintaining O2 sat high 90s on RA, sinus tach on stock selector- HR increases to 130s-140s when sitting up, MD aware. Hx of ETOH withdrawal seizures, seizure precautions in place for safety. CIWAs negative. Vitals taken and updated. Call m[facility]overn within reach, all needs met at this time.
[2024-12-10 10:57] LABS: Anion Gap 23 (12-20); Blood Urea Nitrogen 10 mg/dL (9-16); Calcium 8.8 mg/dL (8.4-10.2); Carbon Dioxide 23 mmol/L (22-29); Chloride 100 mmol/L (96-108); Creatinine Clr Calc Pharmacy 88.2; Estimated Glomerular Filt Rate > 60; Ethanol 29 mg/dL; Glucose Random 179 mg/dL (60-115); Sodium 143 mmol/L (135-145)
[2024-12-10] MEDS: levETIRAcetam 250 MG TABLET 750 MG PO ×2 (11:28→20:24)
[2024-12-10] MEDS: PHENobarbitaL sodium 130 MG/ML IM ONCE 257 MG IM (11:44)
--- NOTE | 2024-12-10 14:11 | PHA.MEDREC ---
Addendum entered by Michel Iqbal RPh 12/10/24 16:31: Med rec reviewed by [facility]. Original Note: Pharmacy Consult ? Medication Reconciliation Pharmacy has completed the medication reconciliation. Spoke to pt to confirm meds.
--- NOTE | 2024-12-10 14:27 | PM.IMHP ---
History of Present Illness Date of Service: 12/10/24 Chief Complaint: Alohol withdrawal syndrome A 34-year-old female with a history of epilepsy and alcohol dependence reports being sober from September 2024 until several days ago, when she resumed heavy drinking. Her preferred alcoholic beverage was Smirnoff with additional nips of vodka. She was found intoxicated after being dropped off at her parents' house by her boyfriend. Once the effects of intoxication subsided, she became agitated, tachycardic, and hypertensive, requiring sedation for alcohol withdrawal management. Currently, she is calm and cooperative but remains tachycardic. Review of Systems Review of Systems: Gen: no fever Resp: no sob, no cough CV: no chest, no MORALES, no leg edema GI: No n/v, no abd pain Neuro: No confusion, no agiation Yes all other systems are reviewed and are negative [facility] Medical History Acute respiratory failure Acute hypokalemia Acute hyponatremia Alcohol withdrawal Status epilepticus Alcohol use disorder, severe, dependence Withdrawal seizures Depression Alcoholism Social History Household Members: Spouse and Family Household Members Other:: bf, mom Housing: House Do you presently have visiting nurse or other home services: No Unable to assess alcohol history related to: Unable to respond Alcohol intake: current Alcohol intake frequency: 3 or more drinks per day Alcohol type: beer and hard liquor Comment: pt refused bed alarm Patient Tobacco Use Status: Tobacco use Unknown e-Cigarette/Vaping Use: Currently Using Use of substances other than those prescribed or required for medical reasons: Yes Substance Use Type: Crack/Cocaine Advance Directives: No Advance Directives Information Provided: No Do you have a plan to hurt others: No Plan Nutrition Risks: No Nutritional Risk Patient : No service: No Meds Allergies Allergy/AdvReac Type Severity Reaction Status Date / Time Iodinated Contrast Media AdvReac Hives Verified 12/09/24 22:30 [Contrast Dye] Active Medications: Current Medications Acetaminophen (Acetaminophen 325 Mg Tablet) 650 mg PO Q6H PRN PRN Reason: Pain, Mild 1-3,fever,headache Calcium Carbonate (Calcium Carbonate 750 Mg Tab.Chew) 750 mg PO Q4H PRN PRN Reason: Heartburn Enoxaparin Sodium (Enoxaparin Sodium 40 Mg/0.4 Ml Syringe) 40 mg SUBCUT Q24H [facility] Lactated Ringer's (Lr) 1,000 mls @ 150 mls/hr IVCONT .Q6H40M [facility] Magnesium Hydroxide (Milk Of Magnesia 30 Ml Oral.Susp) 30 ml PO DAILY PRN PRN Reason: Constipation Melatonin (Melatonin 3 Mg Tablet) 6 mg PO BEDTIME PRN PRN Reason: Insomnia Ondansetron HCl (Ondansetron Hcl 4 Mg/2 Ml Vial) 4 mg IVPUSH Q8H PRN PRN Reason: Nausea and Vomiting Pharmacy Consult (Consult Rx Etoh Phenob Im/Po) 1 each MISCELLANE ONCE PRN; Protocol PRN Reason: Consult order Phenobarbital (Phenobarbital 15 Mg Tablet) 45 mg PO BID [facility]; Protocol Stop: 12/12/24 21:01 Phenobarbital (Phenobarbital 30 Mg Tablet) 30 mg PO BID [facility]; Protocol Stop: 12/14/24 21:01 Phenobarbital (Phenobarbital 30 Mg Tablet) 30 mg PO DAILY [facility]; Protocol Stop: 12/16/24 09:01 Phenobarbital Sodium (Phenobarbital Sodium 130 Mg/Ml Vial Im Q3hx2) 193 mg IM Q3H ARTURO; Protocol Stop: 12/10/24 18:01 Polyethylene Glycol (Polyethylene Glycol 3350 17 Gm Powd.Pack) 17 gm PO DAILY PRN PRN Reason: Constipation Sodium Chloride (0.9 % Sodium Chloride Flush 3 Ml Syringe) 3 ml IVFLUSH QSHIFT [facility] Home Medications ?Medication ?Instructions ?Recorded ?Confirmed ?Last Taken ?Type omeprazole 20 mg capsule,delayed 20 mg PO DAILY@0630 06/19/24 12/10/24 12/08/24 History release sucralfate 1 gram tablet 1 g PO QID 06/19/24 12/10/24 12/08/24 History hydroxyzine HCl 25 mg tablet 25 mg PO DAILY PRN Anxiety 08/29/24 12/10/24 Unknown History magnesium oxide 400 mg (241.3 mg 400 mg PO DAILY 08/29/24 12/10/24 12/08/24 History magnesium) tablet sertraline 100 mg tablet 100 mg PO DAILY 08/29/24 12/10/24 12/08/24 History topiramate 25 mg tablet 25 mg PO BEDTIME 1012/10/24 12/08/24 History quetiapine 50 mg tablet 50 mg PO BEDTIME PRN insomnia 09/16/24 12/10/24 Unknown History levetiracetam 750 mg tablet 750 mg PO BID 12/10/24 12/10/24 12/08/24 History Physical Exam Vital Signs and Narrative: Vital Signs: Last Vital Signs Temp 98.9 F 12/10/24 13:44 Pulse 107 H 12/10/24 13:44 Resp 18 12/10/24 13:44 BP 128/87 12/10/24 13:44 Pulse Ox 96 12/10/24 13:44 O2 Del Method Room Air 12/10/24 13:44 BMI result Body Mass Index 19.1 Const: Other: General: AO X 3, no acute distress Resp: CTA bilateral CVS: S1,S2,RRR GI: +BS, NT, no distention Skin: No rash Neuro: motor grossly intact Psych: appropriate affect , CN 2 to 3 intact Results Labs 12/09/24 22:39 12/10/24 10:29 Labs: Laboratory Results - last 24 hr 12/09/24 12/10/24 12/10/24 22:39 06:45 10:29 MCV 79.4 L MCH 27.3 MCHC 34.4 RDW 15.3 Plt Count 697 H D MPV 8.3 L Immature Gran % (Auto) 0.2 Neut % (Auto) 73.4 H Lymph % (Auto) 20.2 [place] % (Auto) 5.6 Eos % (Auto) 0.1 Baso % (Auto) 0.5 Lymph # (Auto) 1.8 [place] # (Auto) 0.5 Eos # (Auto) 0.0 Baso # (Auto) 0.0 Abs Immat Gran (auto) 0.02 Absolute Neuts (auto) 6.4 Absolute Nucleated RBC 0.000 Nucleated RBC % (auto) 0.0 Anion Gap 26 H 23 H Estim Creat Clear Calc 87.0 88.2 Estimated GFR > 60 > 60 Random Glucose 152 H 179 H Calcium 9.1 D 8.8 Magnesium 1.7 Total Bilirubin 0.3 Direct Bilirubin 0.1 AST 63 H ALT 51 H Alkaline Phosphatase 120 H Total Protein 8.7 H Albumin 4.4 Lipase 8 Urine Opiates Screen Not Detected Ur Buprenorphine Scrn Not Detected Ur Oxycodone Screen Not Detected Urine Methadone Screen Not Detected Urine Fentanyl Screen Not Detected Ur Barbiturates Screen Not Detected Ur Phencyclidine Scrn Not Detected Ur Amphetamines Screen Not Detected U Benzodiazepines Scrn Not Detected Urine Cocaine Screen POSITIVE H U Marijuana (THC) Screen Not Detected Ethyl Alcohol 439 H* 29 Assessment and Plan (1) Alcohol withdrawal: Qualifiers: Complication of substance-induced condition: uncomplicated Qualified Code(s): F10.930 - Alcohol use, unspecified with withdrawal, uncomplicated Status: Acute (2) Elevated LFTs: Status: Acute Plan A 34-year-old female with a history of seizure disorder and alcohol dependence presents with alcohol withdrawal following a recent period of heavy alcohol intoxication. Alcohol withdrawal, cocain + continue phenobarbital protola folic acid, thiamin and vitamin replacement sobriety discussed, addiction med consult Tachcyardia--likely related to above, iv fluid and reassess Hypoklalemia--IV and PO replacement, repeat tomorrow, mag paulo Thrombocytosis--likely reativel Seizure d/o restart keppra Elevated LFts, likley d/t chronic alcohol use at least 2 midnights admit for alcohol withdrawal Full code Dvt prophlaxis: lovenox Quality Stroke Does the patient have a stroke diagnosis?: No VTE Prior VTE?: No VTE Risk Level:: Medical - moderate - high VTE Device Contraindication: Treatment Not Indicated VTE Drug Contraindication: N/A - Med Ordered
[2024-12-10] MEDS: PHENobarbitaL sodium 130 MG/ML VIAL IM Q3Hx2 193 MG IM ×2 (15:21→18:30)
[2024-12-10] MEDS: Omeprazole 20 MG CAPSULE.DR PO (15:21)
[2024-12-10] MEDS: Thiamine HCL 100 MG TABLET PO (15:21)
[2024-12-10] MEDS: Potassium Chloride ER 20 MEQ TAB.ER.PRT 40 MEQ PO (15:21)
[2024-12-10] MEDS: Multivitamin TABLET 1 TAB PO (15:21)
[2024-12-10] MEDS: Folic Acid 1 MG TABLET PO (15:21)
[2024-12-10] MEDS: Lactated Ringers 1,000 ML 150 ML IVCONT ×2 (15:24→20:45)
[2024-12-10] MEDS: hydrOXYzine HCL 25 MG TABLET PO (16:09)
[2024-12-10] MEDS: Sertraline HCL 100 MG TABLET PO (16:09)
[2024-12-10] MEDS: Acetaminophen 325 MG TABLET 650 MG PO ×2 (16:10→22:25)
[2024-12-10] MEDS: Sucralfate 1 GM TABLET PO ×2 (18:30→20:24)
[2024-12-10] MEDS: Topiramate 25 MG TABLET PO (20:24)
[2024-12-10] MEDS: QUEtiapine Fumarate 50 MG TABLET PO (22:26)
--- OUTSIDE RECORDS SUMMARY | 2024-12-10 23:35 | XMS_ITS | Encounter Summary ---
Author Organization [facility] [place] [address] Care Team Providers Care Organizational Effectiveness Director Name Role Phone Rupert Flores MD Primary Care Pr ovider Reason for Referral * Cardiac Stress Testing (Routine) - Authorized Specialty Diagnoses / Procedures Referred By Contac t Referred To Contact Cardiology Diagnoses Chest pain, unspecified type Procedures Exercise stress test Smita Rabago PA [address] [place] [address] Phone: tel: fax: [facility] Referral ID Status Reason Start Date Expiration Date V isits Requested Visits Authorized [id number] Authorized 11/28/2024 11/28/2025 1 1 * Consultation (Urgent) - Authorized Specialty Diagnoses / Procedures Referred By Contyolis t Referred To Contact Neurology Diagnoses Seizure disorder (CMS/HCC) Smita Rabago PA [address] [place] [address] Phone: tel: fax: So Malcolm MD [address] [place] [phone] Phone: tel: fax: Referral ID Status Reason Start Date Expiration Date Visits Requested Visits Authorized [id number] Authorized Specialty Services Required 11/28/2024 11/28/2025 1 1 Reason for Visit * Reason Comments Annual Exam Last pe 2020, last o bgyn 2020, last vision 2023, last dentist 2023, last tdap 2019, last flu Encounter Details Date Type Department Care Team (Late st Contact Info) Description 11/28/2024 12:30 PM EST Office Visit Adult [address] [phone] Smita Rabago PA [address] [place] [address] Annual physical exam (Primary Dx); Seizure disorder [...] What is your living situation? 0 11/28/2024 Comments No Sex and Gender Information Value Date Recorded Sex Assigned at Not on file Legal Sex Female 2:43 PM EST Gender Identity Not on file Sexual Orientation Not on file documented as of this [...] in this encounter Ordered Prescriptions Prescription Sig Dispense Quantity Refills Last Filled Start Date End Date levETIRAcetam (KEPPRA) 750 mg tablet Take 1 [...] EST NEUROLOGY You have been referred to [facility] [address] [facility], [address], [place] by Rupert Flores MD. [phone] (Missed appointment 10/02/24) Below is a list of our community resources as we discussed. Behavioral Health Resources/Support for Adults Emergency Crises Services, Psychiatric Crisis Services [place] [facility] [address] [place], [place] [facility] Crisis Team [address] [place] [address] [facility] main number [facility] 1109 [facility] [place] [facility] Therapy & Psychiatry Walk-In Program Mon-Fri: 10am-Noon [address] [place], [place] Intake Line: [phone] Locations in [facility] Therapy & Psychiatry Walk-in Program Mon-Fri: 8am-5pm [address] [place], [place] Intake Line: [phone] Clinical Support Options Therapy & Psychiatry [email or web address] [place]: [phone] [place]: [phone] [place]: [phone] [facility]: [phone] [facility] Therapy & Psychiatry [email or web address] Intake Line: [phone] Locations: [facility] Therapy only [phone] 370 [facility] Outside of [facility] Psychiatric Care Providers Cristy Solares APRN [facility] Health [facility] ([facility]) [address] [place] [address] [place] [address] [phone] Feli Arriaga MD [facility] Health [facility] ([facility]) [address] [place] [address] [place] [address] [phone] Jesus Queen CHP [facility] 175 [facility], [address] [place] [address] [place] [address] , Mercy Lopez APRN Clinical & Support Options (UTILITY APPRAISER) [address], [facility]. [address] [place] [address] [place] [address] , [facility] [address], [address] [place] [address] [place] [address] , [facility] 103 [facility], [address] [facility], [address] [place] [address] [place] [address] , Karma Siu APRN [facility] 206 [facility] Room [address]8 2 [facility] [address] [place] [address] [place] [address] , Huyen Pollock MD [facility] [address] [facility], [address] 6 [facility] [address] [place] [address] [place] [address] , [facility] ACCEPTING [facility] (Jabari De La Cruz Manger) [address] [facility] / [address], [place] [address] & [phone] Behavioral [facility] Network (INTAKE) [facility] Crisis [address] [facility] / [address], [facility] [address] [facility] Crisis [address] [facility] / [address], [facility] [address] Clinical Support Options (UTILITY APPRAISER) [address] [place] [address]. 102/3rd floor, [facility] [address] [facility] 249 [facility] [address] Service [facility] 98 [facility] [address] [facility] 40 [facility] [address] [facility] 476 [facility], [facility] [address] [facility] 1233 [facility] [address] [facility] 185 [facility] [address], [facility] [address] [address] Cayla Nieto 7[address] [facility], [facility] [address] [facility] 42 [facility] [address] [facility] 147 [facility] [address] [address] Biju Stern 380 [facility] [address] [facility] MENTAL HEALTH CLINICS ACCEPTING [facility] (Drug addiction, no meds) & Group Therapy 117 [facility]. [address], [place] [address] [facility] Services 77 [facility]. [address], [facility] [address] [facility] 30 [facility] [address] [facility] 2 [facility] [address] Service [facility] 129 [facility] [address] Outreach: [phone] 50 [facility] [address] Therapy: [phone] 55 [facility] [address] Therapy: [phone] Service [facility] 400 [facility] [address] Therapy: [phone] [facility] [place] Society for the Prevention of Cruelty to Children (MSPCC) 9 [facility] [address] [address] Chacha Mccoy (Psychiatrist) 303 [facility] [address] [facility] MENTAL HEALTH CLINICS ACCEPTING MEDICARE [facility] [email or web address] Melody Howard 771 [facility]/[address] [place] [address] OTHER SERVICES [facility] 155 [facility] [id number] [facility] [address] [place] [address] [facility] No insurance, Springer, Check or Credit 94 [facility]/[address] [phone] * RAFAEL Robertson - 11/28/2024 12:30 PM [...] will self refer for dental, eye and TRAVEL TICKETING REVIEWER exams (due for all) She declines flu shot today Last visit with adult medicine in July Saw PCP for hospital follow-up - she was admitted to [facility] - presented after foundbeing found unresponsive, [...] had been on Vivitrol injections prior through [facility] (wanting to resume per July visit, was told to contact previous clinic) She was referred to Neurology, no show to 10/02 appointment She states she was admitted at [facility] in September related to seizures (was transferred from [facility] to [place]). She did not follow-up with the office [...] alcohol or drug use,denies family history of [place]. Lipid panel in July normal She has [...] stools : No dysuria, frequency or incontinence TRAVEL TICKETING REVIEWER: No abnormal vaginal bleeding or abnormal vaginal [...] Recent Immunizations Administered Date(s) Administered DTP 10/22/1994 [id number]-[id number]-LVA (Pentacel) 2mo to less than 5yo 01/08/1992 HPV, Quadrivalent 11/29/2019 Hepatitis B (Xbtrazp-H-Vpcvx, Recombivax HB-Adult) 19yo and older 01/25/2003 MMR, [...] series) Never done COVID-19 Vaccine ( - ) Never done Cervical Cancer Screening: HPV 11/29/2024 [...] clear to auscultation BREAST (FEMALE): Deferred to animal anatomy teacher ABDOMEN: Bowel sounds normoactive, no bruits, soft, non-tender, without organomegaly or palpable masses TRAVEL TICKETING REVIEWER (FEMALE): Deferred to animal anatomy teacher BACK: No pain to palpation with good [...] in September 02 seizure). Denies seizure since. States is running low of KeRed Tricyclera, recent refill sent. Needs to be following with Neurology. Advised to contact office of appt missed in October (office information given) Anxiety, depression, insomnia - continue zoloft, hydroxyzine, seroquel. community resources given to establish Chest pain - [...] Description 12/26/2024 9:15 AM EST Ancillary Procedure [facility] - [address] [place] [address] 01/12/2025 9:00 AM EDT Consult [facility] [place] [address] [place] [phone] So Malcolm MD [address] [place] [address] Scheduled Orders Name Type Priority [...] to Neurology Outpatient Referral Routine Seizure disorder (CMS/HCC) 1 Occurrences starting 11/28/2024 until 11/28/2025 documented as of this encounter Visit Diagnoses Diagnosis Annual physical exam- Primary Routine general medical examination at a health care facility Seizure disorder (CMS/HCC) Unspecified epilepsy without mention of intractable epilepsy [...] may reflect changes made after this encounter. hydrOXYzine HCL (ATARAX) 25 mg tablet Take [...] documented as of this encounter Care Teams Organizational Effectiveness Director Relationship Specialty Start Date End Date Rupert Flores MD [address] [place] [address] PCP - General Internal Medicine 05/17/22 documented as of this encounter
--- OUTSIDE RECORDS SUMMARY | 2024-12-10 23:35 | XMS_ITS | Encounter Summary ---
Author Organization [facility] [place] [address] Care Team Providers Care Md Ophthalmologist Name Role Phone Rupert Flores MD Primary Care Pr ovider Encounter Details Date Type Department Care Team (Late st Contact Info) Description 11/15/2024 Telephone Adult Medicine [address] [phone] Natalie Ortiz, RN Social History Tobacco Use Types Packs/Day Years Used Date Smoking Tobacco: Never Smokeless Tobacco: Never Alcohol Use Standard Drinks/Week Comments Not Currently 0 (1 standard drink = 0.6 oz pur e alcohol) Comments Unknown Sex and Gender Information Value Date Recorded [...] Description 12/26/2024 9:15 AM EST Ancillary Procedure [facility] - [address] [place] [phone] 01/12/2025 9:00 AM EDT Consult [facility] [address] [place] [address] So Malcolm MD [address] [place] [address] documented as of this encounter Visit Diagnoses Not on filedocumented in this encounter Care Teams Md Ophthalmologist Relationship Specialty Start Date End Date Rupert Flores MD [address] [place] [address] PCP - General Internal Medicine 05/17/22 documented as of this encounter
--- OUTSIDE RECORDS SUMMARY | 2024-12-10 23:35 | XMS_ITS | Clinical Summary ---
Author Organization [facility] Address [address] [place] [address] Care Team Providers Care Game Engineer Name Role Phone Rupert Flores MD Primary Care Pr ovider Allergies Active Allergy Reactions Criticality Noted Date Comments Cat Dander Itching 05/17/2014 Dog Dander Itching 05/17/2014 Other Itching 05/17/2014 seasonal Medications folic acid (FOLVITE) 1 mg tablet Take 1 Tablet by mouth daily. 07/12/20 24 Active magnesium oxide (MAG-OX) 400 mg (241.3 elemental magnesium) tablet Take 1 Tablet by mouth daily. 07/12/20 24 Active multivitamin (MULTIPLE VITAMINS ORAL) Take 1 Tablet by mouth daily. 07/12/20 24 Active omeprazole (PriLOSEC) [address] capsule Take 1 Capsule by mouth daily. 07/12/20 24 Active senna 8.6 mg tablet 04/07/20 24 Active sucralfate (CARAFATE) 1 gram tabletIndicati ons:Duodenitis without bleeding TAKE 1 TABLET BY MOUTH FOUR TIMES A DAY 360 tablet 1 09/29/20 24 Active sertraline (ZOLOFT) 50 mg tablet Take 2 tablets (100 mg total) by mouth 1 (one) time each day for 14 days. 28 each 11/17/19 25 Active naltrexone (DEPADE) 50 mg tablet Take 1 tablet (50 mg total) by mouth 1 (one) time each day. 09/21/20 24 Active topiramate (TOPAMAX) 25 mg tablet Take 1 tablet (25 mg total) by mouth at bedtime. 30 each 2 11/28/19 25 025 Active QUEtiapine (SEROquel) 50 mg tablet Take 1 tablet (50 mg total) by mouth at bedtime. 30 each 2 11/28/19 25 Active hydrOXYzine HCL (ATARAX) 25 mg tablet Take 2 tablets (50 mg total) by mouth 2 (two) times a day if needed for anxiety. 2 tablets 11/28/19 25 Active levETIRAcetam (KEPPRA) 750 mg tablet Take 1 tablet (750 mg total) by mouth 2 (two) times a day. 60 tablet 11/28/19 25 Active hydrOXYzine HCL (ATARAX) 25 mg tablet Take 1-2 Tablets by mouth at bedtime as needed for Anxiety. 07/12/20 24 025 Discontinued(Re order) QUEtiapine (SEROquel) 50 mg tablet Take 1 Tablet by mouth at bedtime as needed (insomnia). 07/12/20 24 025 Discontinued(Re order) topiramate (TOPAMAX) 25 mg tablet Take 1 Tablet by mouth at bedtime for 90 days. 07/12/20 24 025 Discontinued(Re order) sertraline (ZOLOFT) 50 mg tablet Take 2 tablets (100 mg total) by mouth 1 (one) time each day. 60 each 10/13/20 24 025 Discontinued(Re order) levETIRAcetam (KEPPRA) 750 mg tablet Take 1 tablet (750 mg total) by mouth 2 (two) times a day. 09/23/20 24 025 Discontinued(Re order) hydrOXYzine HCL (ATARAX) 25 mg tablet Take 1 tablet (25 mg total) by mouth at bedtime for 14 days. 14 each 11/17/19 25 025 Discontinued levETIRAcetam (KEPPRA) 750 mg tablet Take 1 tablet (750 mg total) by mouth 2 (two) times a day for 14 days. 28 each 11/17/19 25 025 Discontinued(Re order) QUEtiapine (SEROquel) 50 mg tablet Take 1 tablet (50 mg total) by mouth at bedtime for 14 days. 14 each 11/17/19 25 025 Discontinued(Re order) Active Problems Problem Noted Date Diagnosed Date Chronic migraine without aur a without status migrainosus, not intractable 07/12/2024 Duodenitis determined by biopsy 07/12/2024 Fatty liver 07/12/2024 Seizure disorder 07/12/2024 Glaucoma 02/03/2023 Subclinical hypothyroidism 02/03/2023 Insomnia 09/22/2021 Alcohol abuse 02/22/2019 Overview (09/05/2024): Detox 02/17 [place] Anxiety and depression 02/22/2019 Scoliosis 09/04/2010 Attention deficit hyperactivity disorder (ADHD) 12/29/2005 Encounters Date Type Department Care Team Description 11/28/2024 12:30 PM EST Office Visit Adult [address] [phone] Smita Rabago PA Annual physical exam (Primary Dx); Seizure disorder (CMS/HCC); Anxiety and depression; Insomnia, unspecified type; Chest pain, unspecified type 11/17/2024 Telephone Adult Medicine [address] [phone] Rupert Flores MD Panic Attack 11/15/2024 Telephone Adult [address] [phone] Natalie Ortiz, RN 11/15/2024 Telephone Adult Medicine [address] [phone] Natalie Ortiz, RN 11/15/2024 Nurse Triage Adult [address] [phone] Rupert Flores MD 11/14/2024 Telephone Adult Medicine [address] [phone] Padmini Maradiaga MD Med Refill from Last 3 Months Immunizations Name Administration Dates Next Due DTP 10/22/1994, 2,04/04/1991,1990,1990 SEmI-POE-IVV (Pentacel) 2mo to less than 5yo 01/08/1992,04/04/1991,02/01/1991,1990 HPV, Quadrivalent 11/29/2019,05/17/2014,08/31/20 08 Hepatitis B (Wegkhlq-W-Bzzly , Recombivax HB-Adult) 19yo and older 01/25/2003,08/10/2002 [...] Left PROCEDURE: HISTORICAL CATARACT REMOVAL ESOPHAGOGASTRODUODENOSCOPY PROCEDURE: SD ESOPHAGOGASTRODUODENOSCOPY TRANSORAL DIAGNOSTIC; COMMENT: Grade D esophagitis [...] Neg Hx Relation Name Status Comments Daughter Valentina Alive Father Alive age 50 in good [...] on file Sexual Orientation Not on file Obstetrics History Last Filed [...] Description 12/26/2024 9:15 AM EST Ancillary Procedure [facility] - [facility] [address] [facility] 101 [place] [address] 01/12/2025 9:00 AM EDT Consult [facility] [address] [place] [phone] So Malcolm MD [address] [place] [phone] Health Maintenance Due Date Last Done Comments Pneumococcal Vaccine: Pediatrics (0 to 5 Years) and At-Risk Patients (6 to 64 Years) (1 of 2 - PCV) 1996 Hepatitis A Vaccines (1 of 2 - Risk 2-dose series) 2009 COVID-19 Vaccine ( - season) 2024 Cervical Cancer Screening: HPV 11/29/2024 [...] * Depression Screening (07/12/2024) Depression Screening abstracted us Historical Provider HEALTH MAINTENANCE Final Result * Lipid panel (07/12/2024) [facility] LDL/HDL Ratio 2 0 - 4 Triglycerides 65 0 - 150 mg/dL Cholesterol 166 0 - 200 mg/dL HDL 72 >=40 mg/dL LDL Cholesterol 81 0 - 100 mg/dL Blood Venous blood specimen / Unknown Result [facility] Provider LAB BLOOD ORDERABLES Mel l Result * Cervical Cancer Screening: HPV (11/29/2019) [facility] Cervical Cancer Screening: HPV no interpretation , abstracted Result [facility] Provider HEALTH MAINTENANCE Final Result * HIV Screening (03/06/2015) [facility] HIV Screening abstracted Result [facility] Provider HEALTH MAINTENANCE Final Result * Hepatitis C Screening (03/06/2015) [facility] Hepatitis C Screening abstracted Result [facility] Provider HEALTH MAINTENANCE Final Result from Last 3 Months or Most Recently Relevant to Health Maintenance Insurance [facility] [employer] [facility] Care Teams Game Engineer Relationship Specialty Start Date End Date Rupert Flores MD [address] [place], [place] PCP - General Internal Medicine 05/17/22
--- OUTSIDE RECORDS SUMMARY | 2024-12-10 23:35 | XMS_ITS | Clinical Summary ---
Author Organization [facility] Address [address] [place] [address] Care Team Providers Care User Interface Artist Name Role Phone Unavailable Primary Care Provider [...] PM EST Hospital Encounter [facility] [address] [place] [phone] Adeel Nunez DO Holub, Meredith S, MD Perkins, Michael E, MD Madhusudana, MD Aakash Gomez, Isac Murillo DO Acute respiratory failure (HCC) (Primary Dx); Witnessed seizure-like activity (HCC); Seizure (HCC); Acute hyponatremia; Stupor; Alcohol abuse Discharge Disposition: Home or Self Care 09/16/2024 5:42 PM EST - 09/16/2024 6:04 PM EST Hospital Encounter [facility] [address] [place] [address] Dank Gerardo MD Discharge Disposition: Home or Self Care 09/16/2024 Travel from Last 3 Months Social History Tobacco Use Types Packs/Day Years Used Date Smoking Tobacco: Never Assessed [facility] Utilities Answer Date Recorded In the past 12 months has th e Expert TA, gas, oil, or water [employer] threatened to shut off services in your [...] any time in the past 12 m [facility], were you homeless or living in a [facility] (including now)? Patient unable to answer 09/18/2024 [...] - 145 mmol/L 09/21/2024 3:47 PM EST [facility] Blood (Plasma/Serum) 09/21/2024 2:41 PM EST 09/21/2024 3:20 PM EST [address] MESSENGER LAB BLOOD ORDERABL ES Performing Organization Address City/[facility]/[place] [address], [place] [address] * (ABNORMAL) COMPLETE BLOOD COUNT, WITHOUT DIFFERENTIAL [...] EST 09/21/2024 8:23 AM EST Aye [address] MESSENGER [place] [address], [address] [address] * Phosphorus (09/21/2024 7:48 AM EST) Only the most recent of9 resultswithin the time period is included. Phosphorus 4.5 2.7 - 4.5 mg/dL 09/21/2024 9:17 AM [facility] Blood (Plasma/Serum) 09/21/2024 7:48 AM EST 09/21/2024 8:23 AM EST [address] MESSENGER LAB BLOOD ORDERABL ES Performing Organization Address [facility] [place] [address], [place] [address] * Magnesium (09/21/2024 7:48 AM EST) Only the most recent of9 resultswithin the time period is included. Magnesium 1.6 1.6 - 2.7 mg/dL 09/21/2024 9:17 AM [facility] Blood (Plasma/Serum) 09/21/2024 7:48 AM EST 09/21/2024 8:23 AM EST [address] MESSENGER LAB BLOOD ORDERABL ES Performing Organization Address [facility]/[place] [address], [place] [address] * (ABNORMAL) Basic Metabolic Panel (09/21/2024 7:48 [...] EST 09/21/2024 8:23 AM EST Aye [address] MESSENGER LAB BLOOD ORDERABL ES Performing Organization Address City/[facility] [place] [address], [place] [address] * (ABNORMAL) Creatine Kinase (CK) (09/21/2024 1:18 AM EST) Only the most recent of15 resultswithin the time period is included. Creatine Kinase (CK) 4,731(HH) 24 - 173 U/L 09/21/2024 2:16 AM [facility] Blood (Plasma/Serum) 09/21/2024 1:18 AM EST 09/21/2024 1:22 AM EST Aye [address] MESSENGER LAB BLOOD ORDERABL ES Performing Organization Address City/[facility]/[place] [address], [place] [address] * POCT Glucose, Fingerstick (09/20/2024 8:13 AM [...] original result was not included. ?? Department: [facility] Patient: [id number] (XUAN CALZADA) ?? Patient Location: ..[place] [address].[facility] CPT Code: 86362 ICD-9: ?? Referring Physician: BEV Lora Note: [...] Wilber Perez III, MD - 09/19/2024 Department: [facility] Patient: [id number] (ELIAZARKARIXUAN ROSA) Patient Location: ..[id number] [place] [address] CPT Code: 66848 ICD-9: Referring Physician: BEV Pérez Tech Note: [...] original result was not included. ?? Department: [facility] Patient: [id number] (SILVIAXUAN LOPEZ) ?? Patient Location: ..[id number].[facility] CPT Code: 00151 ICD-9: ?? Referring Physician: BEV Lora Note: [...] Wilber Perez III, MD - 09/19/2024 Department: [facility] Patient: [id number] (XUAN CALZADA) [facility][id number][facility] CPT Code: 49668 ICD-9: Referring Physician: BEV Lora Note: Technically [...] Antibody Negative Negative 09/20/2024 10:36 AM EST [facility] Comment:Negative Screen, ref clark testing not indicated. Plasma/Serum 09/19/2024 10:2 1 AM EST 09/19/2024 10:29 AM EST Bev Biolo PA-[place] [address], [address] [address] * ECG 12 lead (09/19/2024 9:11 AM EST) Only the most recent of3 resultswithin the time period is included. Systolic BP 109 mmHg EKG [facility] Diastolic BP 77 mmHg EKG [facility] Ventricular rate 86 BPM EKG [facility] Atrial rate 86 BPM EKG [facility] P-R interval 146 ms EKG [facility] QRS duration 76 ms EKG [facility] Q-T interval 360 ms EKG [facility] QTC calculation (Bazett) 430 ms EKG [facility] P axis 59 degrees EKG [facility] R axis 85 degrees EKG [facility] T axis 61 degrees EKG [facility] 09/19/2024 9:11 AM EST Narrative EKG [facility] - 09/19/2024 10:55 PM EST Normal sinus rhythm Septal infarct , age undetermined Abnormal ECG When compared with ECG of 16-Sep-2024 23:48, QT has shortened Confirmed by MD Hernandez Shishir ([id number]) on 09/19/2024 10:55:12 PM Procedure Note Charles Hernandez MD - 09/19/2024 Normal sinus rhythm Septal infarct , age undetermined Abnormal ECG When compared with ECG of 16-Sep-2024 23:48, QT has shortened Confirmed by MD Hernandez Shishir ([id number]) on 09/19/2024 10:55:12 PM Adeel Nunez DO [facility] * EEG 24 HOUR WITH VIDEO (09/19/2024 1:51 AM EST) Sarah HALL NEUROLOGY ORDERABL ES NAT [address] [place] [address], * Vancomycin Level, Random (09/18/2024 9:55 AM EST) Vancomycin, Random 16 mg/L 09/18/2024 3:07 PM EST [facility] Comment:No reference range e stablished for random levels. Time of Last Dose Information not given 09/18/2024 9:55 AM EST Blood (Plasma/Serum) 09/18/2024 9:55 AM EST 09/18/2024 2:38 PM EST Leidy Stratton MD LAB BLOOD ORDERABLES Performing Organization Address City/State/[facility] [place] [address], [address] [address] * EEG - Long-term monitoring (09/18/2024 8:25 AM EST) Narrative [facility] - 09/18/2024 8:25 AM EST Rob Duran MD ? 09/19/2024 ??9:39 AM ADULT INPATIENT CONTINUOUS VIDEO-EEG MONITORING (LTM) REPORT Facility: ? [facility] Patient and : Xuan Calzada 1990 Date [...] Rob Duran MD, PhD. ABPN/ ABPN epilepsy [facility] [place] Sarah HALL NEUROLOGY ORDERABL ES [facility] [address] [place] [address], * (ABNORMAL) Complete Blood Count, with Differential [...] 8.79(H) 2.00 - 7.50 Thou/uL 09/18/2024 1:15 [facility] Abs Immature Granulocytes 0.06 0.00 - [...] PA-C LAB BLOOD ORDERABLES Performing Organization Address City/[facility] Co de Phone Number [address] [address], [address] [address] * (ABNORMAL) HEPATIC FUNCTION PANEL (09/18/2024 12:30 [...] EST Sergio Sorel PA-[place] [address], [place] [address] * (ABNORMAL) Blood Gas with Cooximetry, Arterial [...] EST Sergio Smith PA-[place] [address], [place] [address] [place] [address] * Syphilis Antibody reflex RPR Titer & TPPA (09/17/2024 8:00 PM EST) Syphilis Antibody Reflex RPR Titer and TPA Nonreactive Nonreactive 09/18/2024 10:29 AM EST [facility] Blood Serum specimen / Unknown 09/17/2024 8:00 PM EST 09/17/2024 8:06 PM EST Sergio HALL-C LAB BLOOD ORDERABLES Performing Organization Address City/[facility]/ZIP Co de Phone Number [facility] [address] [place] [address], * HIV 1/2 Ag/Ab CMIA Reflex to [...] HALL-C LAB BLOOD ORDERABLES Performing Organization Address City/[facility]/ZIP Co de Phone Number [facility] [address] [place] [address], * MRI Brain w w/o contrast (09/17/2024 [...] lens replacement. Interpreted by: ??Kit Jolly MD Merchandising Director I personally reviewed the images and the [...] lens replacement. Interpreted by: Kit Jolly MD Merchandising Director I personally reviewed the images and the resident's preliminary report and AGREE with the report as it is now presented (RADPAL1). Sergio Smith PA-C IMG CT ORDERABLES * EEG 24 HOUR WITH VIDEO (09/17/2024 8:33 AM EST) Narrative [facility] - 09/17/2024 8:33 AM EST Rob Duran MD ? 09/17/2024 ??8:36 AM ADULT INPATIENT CONTINUOUS VIDEO-EEG MONITORING (LTM) REPORT Facility: ? [facility] Patient and : Xuan Calzada 1990 Date [...] Rob Duran MD, PhD. ABPN/ ABPN epilepsy [facility] Sarah HALL NEUROLOGY ORDERABL ES [facility] [address] [place] [id number] * GC/Chlamydia RNA by TMA (09/17/2024 8:08 AM EST) Chlamydia RNA by TMA Negative Negative 09/18/2024 2:52 PM EST [facility] GC RNA by TMA Negative Negative 09/18/2024 2:52 PM EST [facility] Comment:Not FDA approved for GC/Chlamydia in [employer], rectal and throat specimens. Test validated by [facility] Imperator for detecting GC/Chlamydia from these sources. X-Specimen 14 Urine specimen / Unknown 09/17/2024 8:08 AM EST 09/17/2024 1:48 PM EST Sergio Smith PA-C MICROBIOLOGY - GENER AL ORDERABLES [facility] [address] * (ABNORMAL) High Sensitivity Troponin T (Once) (09/17/2024 7:50 AM EST) Only the most recent of3 resultswithin the time period is included. High Sensitivity Troponin T 238(HH) <15 ng/L 09/17/2024 8:49 AM EST [facility] Comment:Recurring Critical R esult. Previously phoned. Delta (Change) 12(H) <3 09/17/2024 8:49 AM EST [facility] Comment:Decreased Blood (Plasma/Serum) 09/17/2024 7:50 AM EST 09/17/2024 7:59 AM EST Sergio Smith PA-C LAB BLOOD ORDERABLES Performing Organization Address [facility]/[place] [address], [place] [address] * Lactic Acid, Plasma (STAT) (09/17/2024 7:50 AM EST) Only the most recent of3 resultswithin the time period is included. Lactic Acid 1.5 0.5 - 1.9 mmol/L 09/17/2024 8:24 AM EST [facility] Blood Plasma specimen / Unknown 09/17/2024 7:50 AM EST 09/17/2024 7:59 AM EST Sregio Smith PA-C LAB BLOOD ORDERABLES Performing Organization Address [facility]/[place] [address], [place] [address] * (ABNORMAL) Blood Gas with Cooximetry, Venous [...] Jose Kaplan PA-C [place] [address], [place] [address] * (ABNORMAL) POTASSIUM (09/17/2024 5:00 AM EST) Potassium 2.8(L) 3.4 - 5.3 mmol/L 09/17/2024 6:22 AM [facility] Plasma/Serum 09/17/2024 5:00 AM EST 09/17/2024 5:20 AM EST Jose TUCKER BLOOD ORDERABL ES Performing Organization Address [facility] [place] [address], [place] [address] * MRSA PCR Screen, Qualitative (09/17/2024 2:16 AM EST) MRSA Result Not Detected Not Detected 3:56 AM [facility] Comment:Performed by the Xpe rt MRSA NxG Assay X-Specimen 12 Specimen from nose / Unknown 09/17/2024 2:16 AM EST 09/17/2024 2:31 AM EST Leidy ZELAYA AL ORDERABLES Performing Organization Address [facility] [place] [address], [place] [address] * (ABNORMAL) Procalcitonin (09/17/2024 12:08 AM EST) [...] HALL LAB BLOOD ORDERABLES Performing Organization Address City/State/[facility] [place] [address], [place] [address] * Cortisol, Random (09/17/2024 12:08 AM EST) Pathologist [facility] Cortisol, Random 27.1 ug/dL 09/17/2024 1:56 AM [facility] Comment: AM Reference Range: 6.2-19.4 ug/dL PM Reference Range: 2.3-11.9 ug/dL Plasma/Serum 09/17/2024 12:0 8 AM EST 09/17/2024 12:29 AM EST [email or web address] LAB BLOOD ORDERABLES Performing Organization Address [facility] [place] [address], [place] [address] * Sodium, Urine, Random (09/17/2024 12:08 AM EST) Sodium, Urine Random 35 mmol/L 09/17/2024 12:40 AM [facility] Comment:Reference range not established for random specimen. Urine Urine specimen / Unknown 09/17/2024 12:08 AM EST 09/17/2024 12:23 AM EST Kateeva PA URINE ORDERABLES Performing Organization Address [facility] [place] [address], [place] [address] * Potassium, Urine, Random (09/17/2024 12:08 AM EST) Potassium, Urine (Random) 59 mmol/L 09/17/2024 12:40 AM [facility] Comment:Reference range not established for random specimen. Urine Urine specimen / Unknown 09/17/2024 12:08 AM EST 09/17/2024 12:23 AM EST [email or web address] URINE ORDERABLES Performing Organization Address [facility] [place] [address], [place] [address] * Osmolality, Urine (09/17/2024 12:08 AM EST) Osmolality, Urine 270 40 - 1,400 mOsm/Kg 09/17/2024 12:49 AM EST [facility] Urine Urine specimen / Unknown 09/17/2024 12:08 AM EST 09/17/2024 12:23 AM EST Leidy Braga PA URINE ORDERABLES Performing Organization Address [facility] [place] [address], [place] [address] * Chloride, Urine, Random (09/17/2024 12:08 AM EST) Chloride, Urine, Random 22 mmol/L 09/17/2024 12:40 AM EST [facility] Comment:Reference range not established for random specimen. Urine Urine specimen / Unknown 09/17/2024 12:08 AM EST 09/17/2024 12:23 AM EST Leidy Shefali PA URINE ORDERABLES Performing Organization Address [facility] [place] [address], [place] [address] * Uric Acid (09/17/2024 12:08 AM EST) Uric Acid 6.0 2.5 - 7.0 mg/dL 09/17/2024 1:19 AM EST [facility] Blood (Plasma/Serum) 09/17/2024 12:08 AM EST 09/17/2024 12:29 AM EST Leidy Shefali PA LAB BLOOD ORDERABLES Performing Organization Address City/[facility] [place] [address], [place] [address] * TSH, HIGHLY SENSITIVE (09/17/2024 12:08 AM EST) TSH, Highly Sensitive 1.69 0.27 - 4.20 mIU/L 09/17/2024 1:56 AM [facility] Plasma/Serum 09/17/2024 12:0 8 AM EST 09/17/2024 12:29 AM EST Leidy Altacor PA LAB BLOOD ORDERABLES Performing Organization Address [facility] [place] [address], [place] [address] * (ABNORMAL) Osmolality (09/17/2024 12:08 AM EST) Osmolality, Serum/Plasma 258(L) 285 - 295 mOsm/Kg 09/17/2024 12:49 AM [facility] Blood (Plasma/Serum) 09/17/2024 12:08 AM EST 09/17/2024 12:29 AM EST Kateeva PA LAB BLOOD ORDERABLES Performing Organization Address [facility] [place] [address], [place] [address] * (ABNORMAL) Blood Gas, Venous (09/17/2024 12:08 [...] HALL LAB BLOOD ORDERABLES Performing Organization Address City/[facility]/[place] [address], [place] [address] * (ABNORMAL) Urinalysis with Reflex to Microscopic and Culture (09/16/2024 7:52 PM EST) Color Yellow 09/16/2024 8:13 PM [facility] Clarity Slightly cloudy 09/16/2024 8:13 PM [facility] Specific [place] 1.019 1.003 - 1.030 09/16/2024 8:13 PM [...] Enrique DO URINE ORDERABLES Performing Organization Address City/[facility]/[place] [address], [place] [address] * BLOOD CULTURE Peripheral (09/16/2024 6:50 PM EST) Only the most recent of2 resultswithin the time period is included. Culture Sterile after 5 days 09/21/2024 1:13 PM EST [facility] Microbiology Peripheral blood specimen / Unknown 09/16/2024 6:50 PM EST 09/16/2024 7:36 PM EST Adeel Nunez DO LAB BLOOD ORDERABLES [facility] [address] [place] [address], [place] * XR Chest 1 view-Portable (09/16/2024 [...] communication. Interpreted by: ??Jose Ramon Comer DO Merchandising Director I personally reviewed the images and the [...] silhouette.. No acute osseous abnormalities. Procedure Note rByson Aguilar MD - 09/16/2024 EXAMINATION: XR CHEST [...] communication. Interpreted by: Jose Ramon Comer DO Merchandising Director I personally reviewed the images and the resident's preliminary report and AGREE with the report as it is now presented (RADPAL1). Adeel Enrique DO IMG DIAGNOSTIC IMAGI NG ORDERABLES * B-Hydroxybutyrate (09/16/2024 6:08 PM EST) B-Hydroxybutyrate 0.06 <0.28 mmol/L 09/16/2024 7:25 PM EST [facility] Comment: In the presence of uncontrolled [...] EST Adeel Enrique DO LAB BLOOD ORDERABLES [address] [address], [address] [address] * (ABNORMAL) Triglycerides (09/16/2024 6:08 PM EST) Triglycerides 311(H) <150 mg/dL 09/16/2024 7:25 PM EST [facility] Blood (Plasma/Serum) 09/16/2024 6:08 PM EST 09/16/2024 6:33 PM EST Adeel Enrique DO LAB BLOOD ORDERABLES Performing Organization Address City/[facility]/[place] [address], [place] [address] * Lipase (09/16/2024 6:08 PM EST) Lipase 13 13 - 60 U/L 09/16/2024 7:25 PM EST [facility] Blood (Plasma/Serum) 09/16/2024 6:08 PM EST 09/16/2024 6:33 PM EST Adeel Enrique DO LAB BLOOD ORDERABLES Performing Organization Address [facility] [place] [address], [place] [address] * (ABNORMAL) Acetaminophen Level (09/16/2024 6:08 PM EST) Acetaminophen Level <5(L) 10 - 30 mg/L 09/16/2024 7:25 PM EST [facility] Blood (Plasma/Serum) 09/16/2024 6:08 PM EST 09/16/2024 6:33 PM EST Adeel Enrique DO LAB BLOOD ORDERABLES Performing Organization Address City/[facility]/[place] [address], [place] [address] * (ABNORMAL) Salicylate Level (09/16/2024 6:08 PM EST) Salicylate, Serum <1(L) 15 - 30 mg/dL 09/16/2024 7:25 PM EST [facility] Plasma/Serum 09/16/2024 6:08 PM EST 09/16/2024 6:33 PM EST Adeel Enrique DO LAB BLOOD ORDERABLES [facility] [address] [place] [address], [facility] [address] [place] [address] from Last 3 Months Advance Directives * [...]
--- OUTSIDE RECORDS SUMMARY | 2024-12-10 23:35 | XMS_ITS | Encounter Summary ---
Author Organization [place] [address] Care Team Providers Care Deputy Head Name Role Phone Rupert Flores MD Primary Care Pr ovider Encounter Details Date Type Department Care Team (Late st Contact Info) Description 11/15/2024 Nurse Triage Adult Medicine [address] [phone] Rupert Flores MD [address] [place] [id number] Social History Tobacco Use Types Packs/Day Years [...] ER. Also requested discharge paperwork form both [place] and [facility] via fax with confirmation received. * [...] (e.g., medicines, counseling, etc.) Pt was in [facility] prior to Thanksgiving on life support for 3 days r/t seizures. She was in the ICU in [place] for 3 days for seizures and detox [...] traveled recently to another state outside of [place], [place], [place], [place], [place], [place], [place]? no o If yes, did you [...] yes, gather 3rd libertarian insurance information Third Green Party Information: not applicable PCP: Rupert Flores MD Payor: / No coverage found. documented in this encounter Plan of Treatment Upcoming Encounters Date Type Department Care Team (Late st Contact Info) Description 12/26/2024 9:15 AM EST Ancillary Procedure [facility] - [facility] [address] [facility] [address] [place] [address] 01/12/2025 9:00 AM EDT Consult [facility] [place] [address] [place] [phone] So Malcolm MD [address] [place] [phone] documented as of this encounter Visit Diagnoses Not on filedocumented in this encounter Care Teams Deputy Head Relationship Specialty Start Date End Date Rupert Flores MD [address] [place], [place] PCP - General Internal Medicine 05/17/22 documented as of this encounter
--- OUTSIDE RECORDS SUMMARY | 2024-12-10 23:35 | XMS_ITS | Encounter Summary ---
Author Organization [facility] [place] [address] Care Team Providers Care Progressive Assembler And Fitter Name Role Phone Rupert Flores MD Primary Care Pr ovider Encounter Details Date Type Department Care Team (Late Contact Info) Description 11/15/2024 Telephone Adult Medicine [address] [phone] Natalie Ortiz, RN Social History Tobacco Use [...] Description 12/26/2024 9:15 AM EST Ancillary Procedure [facility] - [address] [place] [phone] 01/12/2025 9:00 AM EDT Consult [facility] [place] [facility] [place] [address] [place] [address] So Malcolm MD [address] [facility] [address] [place] [address] documented as of this encounter Visit Diagnoses Not on filedocumented in this encounter Care Teams Progressive Assembler And Fitter Relationship Specialty Start Date End Date Rupert Flores MD [address] [place], [place] PCP - General Internal Medicine 05/17/22 documented as of this encounter
--- OUTSIDE RECORDS SUMMARY | 2024-12-10 23:35 | XMS_ITS | Encounter Summary ---
Author Organization [facility] [place] [address] Care Team Providers Care Field Counsel Name Role Phone Rupert Flores MD Primary Care Pr ovider Reason for Visit * Reason Onset Date Comments Panic Attack 11/17/2024 Encounter Details Date Type Department Care Team ([facility] st Contact Info) Description 11/17/2024 Telephone Adult Medicine [address] [phone] Rupert Flores MD [address] [place] [id number] Panic Attack Social History Tobacco Use Types [...] is your living situation? 0 11/28/2024 Comments Unknown Sex and Gender Information Value [...] recently to another state outside of [place], [place], [place], [place], [place], [place]? no o If yes, did you quarantine [...] of accident/Injury: No If yes, gather 3rd constitution party insurance information [employer] Party Information: not applicable PCP: Rupert Flores MD Payor: / No coverage found. documented in this encounter Plan of Treatment Upcoming Encounters Date Type Department Care Team (Late st Contact Info) Description 12/26/2024 9:15 AM EST Ancillary Procedure [facility] [address] [place] [phone] 01/12/2025 9:00 AM EDT Consult [facility] [place] [address] [place] [phone] So Malcolm MD [address] [place] [phone] documented as of this encounter Visit Diagnoses Not on filedocumented in this encounter Care Teams Field Counsel Relationship Specialty Start Date End Date Rupert Flores MD [address] [facility], [place] PCP - General Internal Medicine 05/17/22 documented as of this encounter
[2024-12-11] VITALS: BP 120/78; PULSE 96; RESP 18; O2SAT 98
--- NOTE | 2024-12-11 01:50 | PC.NURSE ---
no seizure activity appreciated. sleeping calmly. seizure pads applied to bed railing. cont to reinforce safety; waiting for bed assignment.
[2024-12-11] MEDS: Lactated Ringers 1,000 ML 150 ML IVCONT (03:48)
[2024-12-11 06:00] VITALS: BP 119/80; PULSE 80; RESP 18; O2SAT 96
[2024-12-11] MEDS: PHENobarbitaL 15 MG TABLET 45 MG PO (08:14)
[2024-12-11] MEDS: Thiamine HCL 100 MG TABLET PO (08:15)
[2024-12-11] MEDS: Multivitamin TABLET 1 TAB PO (08:15)
[2024-12-11] MEDS: Sucralfate 1 GM TABLET PO (08:15)
[2024-12-11] MEDS: Magnesium Oxide 400 MG TABLET PO (08:15)
[2024-12-11] MEDS: Folic Acid 1 MG TABLET PO (08:15)
[2024-12-11] MEDS: levETIRAcetam 250 MG TABLET 750 MG PO (08:15)
[2024-12-11] MEDS: Omeprazole 20 MG CAPSULE.DR PO (08:16)
--- NOTE | 2024-12-11 08:57 | P.PNIM_ITS ---
Subjective Subjective Date of Service: 12/11/24 Interval History: Patient is feeling much better, no nausea or voming, no tremors, no hallucination or seizures, tachycardia resolved. Physical Exam 2 Vital Signs: Vital Signs: Last Vital Signs Temp 98.1 F 12/10/24 18:29 Pulse 80 12/11/24 06:00 Resp 18 12/11/24 06:00 BP 119/80 12/11/24 06:00 Pulse Ox 96 12/11/24 06:00 O2 Del Method Room Air 12/11/24 06:00 BMI result Body Mass Index 19.1 Const: Other: General: AO X 3, no acute distress Resp: CTA bilateral CVS: S1,S2,RRR GI: +BS, NT, no distention Skin: No rash Neuro: motor grossly intact Psych: appropriate affect Objective Data Active Medications Acetaminophen (Acetaminophen 325 Mg Tablet) 650 mg PO Q6H PRN PRN Reason: Pain, Mild 1-3,fever,headache Last Admin: 12/10/24 22:25 Dose: 650 mg Documented By: JOSE MIGUEL Calcium Carbonate (Calcium Carbonate 750 Mg Tab.Chew) 750 mg PO Q4H PRN PRN Reason: Heartburn Enoxaparin Sodium (Enoxaparin Sodium 40 Mg/0.4 Ml Syringe) 40 mg SUBCUT Q24H [facility] Last Admin: 12/10/24 15:40 Dose: Not Given Documented By: JERRY Non-Admin Reason: Patient Refused Comments: Pt educated on need for Lovenox injection, pt refused. Folic Acid (Folic Acid 1 Mg Tablet) 1 mg PO DAILY [facility] Last Admin: 12/11/24 08:15 Dose: 1 mg Documented By: ANABELLE Hydroxyzine HCl (Hydroxyzine Hcl 25 Mg Tablet) 25 mg PO DAILY PRN PRN Reason: Anxiety Last Admin: 12/10/24 16:09 Dose: 25 mg Documented By: JERRY Lactated Ringer's (Lr) 1,000 mls @ 150 mls/hr IVCONT .Q6H40M [facility] Last Admin: 12/11/24 03:48 Dose: 150 mls/hr Documented By: JOSE MIGUEL Levetiracetam (Levetiracetam 250 Mg Tablet) 750 mg PO BID [facility] Last Admin: 12/11/24 08:15 Dose: 750 mg Documented By: ANABELLE Magnesium Hydroxide (Milk Of Magnesia 30 Ml Oral.Susp) 30 ml PO DAILY PRN PRN Reason: Constipation Magnesium Oxide (Magnesium Oxide 400 Mg Tablet) 400 mg PO DAILY [facility] Last Admin: 12/11/24 08:15 Dose: 400 mg Documented By: ANABELLE Melatonin (Melatonin 3 Mg Tablet) 6 mg PO BEDTIME PRN PRN Reason: Insomnia Multivitamins/Vitamin C (Multivitamin Tablet) 1 tab PO DAILY [facility] Last Admin: 12/11/24 08:15 Dose: 1 tab Documented By: ANABELLE Omeprazole (Omeprazole 20 Mg Capsule.Dr) 20 mg PO DAILY@0630 [facility] Last Admin: 12/11/24 08:16 Dose: 20 mg Documented By: ANABELLE Ondansetron HCl (Ondansetron Hcl 4 Mg/2 Ml Vial) 4 mg IVPUSH Q8H PRN PRN Reason: Nausea and Vomiting Pharmacy Consult (Consult Rx Etoh Phenob Im/Po) 1 each MISCELLANE ONCE PRN; Protocol PRN Reason: Consult order Phenobarbital (Phenobarbital 15 Mg Tablet) 45 mg PO BID [facility]; Protocol Stop: 12/12/24 21:01 Last Admin: 12/11/24 08:14 Dose: 45 mg Documented By: ANABELLE Phenobarbital (Phenobarbital 30 Mg Tablet) 30 mg PO BID [facility]; Protocol Stop: 12/14/24 21:01 Phenobarbital (Phenobarbital 30 Mg Tablet) 30 mg PO DAILY [facility]; Protocol Stop: 12/16/24 09:01 Polyethylene Glycol (Polyethylene Glycol 3350 17 Gm Powd.Pack) 17 gm PO DAILY PRN PRN Reason: Constipation Quetiapine Fumarate (Quetiapine Fumarate 50 Mg Tablet) 50 mg PO BEDTIME PRN PRN Reason: insomnia Last Admin: 12/10/24 22:26 Dose: 50 mg Documented By: JOSE MIGUEL Sertraline HCl (Sertraline Hcl 100 Mg Tablet) 100 mg PO DAILY [facility] Last Admin: 12/10/24 16:09 Dose: 100 mg Documented By: JERRY Sodium Chloride (0.9 % Sodium Chloride Flush 3 Ml Syringe) 3 ml IVFLUSH QSHIFT [facility] Last Admin: 12/11/24 00:00 Dose: 3 ml Documented By: JOSE MIGUEL Sucralfate (Sucralfate 1 Gm Tablet) 1 gm PO QID [facility] Last Admin: 12/11/24 08:15 Dose: 1 gm Documented By: ANABELLE Thiamine HCl (Thiamine Hcl 100 Mg Tablet) 100 mg PO DAILY [facility] Stop: 12/12/24 09:01 Last Admin: 12/11/24 08:15 Dose: 100 mg Documented By: ANABELLE Topiramate (Topiramate 25 Mg Tablet) 25 mg PO BEDTIME [facility] Last Admin: 12/10/24 20:24 Dose: 25 mg Documented By: JOSE MIGUEL Labs 12/09/24 22:39 12/10/24 10:29 Labs: Laboratory Results - last 24 hr 12/10/24 10:29 Anion Gap 23 H Estim Creat Clear Calc 88.2 Estimated GFR > 60 Random Glucose 179 H Calcium 8.8 Ethyl Alcohol 29 Assessment and Plan (1) Elevated LFTs: Status: Acute (2) Alcohol withdrawal: Status: Acute Plan A 34-year-old female with a history of seizure disorder and alcohol dependence presents with alcohol withdrawal following a recent period of heavy alcohol intoxication. Alcohol withdrawal, cocain +, much better today continue phenobarbital protocol folic acid, thiamin and vitamin replacement sobriety discussed, addiction med consult Tachcyardia--likely related to above, resolved. HypOklalemia--IV and PO replacement, repeat labs this morning Thrombocytosis--likely reactivel Seizure d/o --no seizure restart keppra Elevated LFts, likley d/t chronic alcohol use Full code Dvt prophlaxis: lovenox at least 2 midnights admit for alcohol withdrawal reassess fir discharge later today after addiction med assessment Quality Stroke Does the patient have a stroke diagnosis?: No VTE Prior VTE?: No VTE Risk Level:: Medical - moderate - high VTE Device Contraindication: Treatment Not Indicated VTE Drug Contraindication: N/A - Med Ordered
[2024-12-11 09:57] VITALS: BP 119/80; PULSE 80; RESP 18; TEMP 36.8; O2SAT 96
--- NOTE | 2024-12-11 10:08 | PC.NURSE ---
Pt resting quietly in room; vss; CIWA 0; IVF's infusing; all belongings returned to pt; pt to be admitted
[2024-12-11] MEDS: 0.9 % Sodium Chloride Flush 3 ML SYRINGE IVFLUSH ×2 (10:10)
[2024-12-11] MEDS: Sertraline HCL 100 MG TABLET PO (10:10)
[2024-12-11 11:02] LABS: Alanine Aminotransferase 42 U/L (0-31); Albumin Level 3.2 g/dL (3.5-5.0); Alkaline Phosphatase 118 U/L (39-117); Anion Gap 8 (12-20); Aspartate Amino Transferase 66 U/L (5-31); Bilirubin Total 0.7 mg/dL (0.0-1.0); Blood Urea Nitrogen 3 mg/dL (9-16); Calcium 8.4 mg/dL (8.4-10.2); Carbon Dioxide 24 mmol/L (22-29); Chloride 105 mmol/L (96-108); Creatinine Clr Calc Pharmacy 131.5; Estimated Glomerular Filt Rate > 60; Glucose Random 89 mg/dL (60-115); Potassium 3.1 mmol/L (3.3-5.1); Sodium 134 mmol/L (135-145); Total Protein 6.4 g/dL (6.5-8.0)
[2024-12-11 12:00] VITALS: BP 121/88; PULSE 90; RESP 18; TEMP 36.4; O2SAT 99
--- NOTE | 2024-12-11 12:19 | MHC.CM.PN ---
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 SHE IS NOT INTERESTED IN COMPLETING A HCP TODAY. PCP AT [facility] [place]. DCP: HOME NO SERVICES VS ADDICTION SERVICES REFERRALS PT WILL ARRANGE TRANSPORT
--- NOTE | 2024-12-11 13:06 | P.DS_ITS ---
DS: Providers Provider Date of Service: 12/11/24 Date of admission: 12/10/24 14:24 Date of discharge: 12/11/24 Primary care physician: Rupert Flores MD Consults: 12/11/24 09:00 Addiction Medicine Routine Consulting Provider: Addiction Covering Reason for consultation: alcohol dependence Has provider been notified: No DS: Diagnosis Discharge Diagnosis (1) Elevated LFTs: Status: Acute (2) Alcohol withdrawal: Status: Acute DS: Summary Hospital Course Hospital Course: Chief Complaint: Alohol withdrawal syndrome A 34-year-old female with a history of epilepsy and alcohol dependence reports being sober from September 2024 until several days ago, when she resumed heavy drinking. Her preferred alcoholic beverage was Smirnoff with additional nips of vodka. She was found intoxicated after being dropped off at her parents' house by her boyfriend. Once the effects of intoxication subsided, she became agitated, tachycardic, and hypertensive, requiring sedation for alcohol withdrawal management. Currently, she is calm and cooperative but remains tachycardic. hospital course: Alcohol withdrawal, cocain +, much better today,plan was to continue phenobarbital protocol, evaluation by addiction meds and reassess later for discharge, unfortunately she elected to leave against advise with her boyfriend who felt comfortable taking her home. She was awake alert, and oriented x 4 and proceeded to signs AMA form, encouraged to seek help Tachcyardia--likely related to above, resolved. HypOklalemia--IV and PO, addiction suplement given today Thrombocytosis--likely reactive Seizure d/o --no seizure continue keppra Elevated LFts, likley d/t chronic alcohol use Time Attestation Discharge Coordination Time (in mins): 20 Quality: Safe Use of Opioids Does Pt have an Active Cancer Diagnosis on the Problem List?: No Quality: Stroke Does the patient have a stroke diagnosis?: No Physical Exam Vital Signs: Vital Signs: Last Vital Signs Temp 97.5 F 12/11/24 12:00 Pulse 90 12/11/24 12:00 Resp 18 12/11/24 12:00 BP 121/88 12/11/24 12:00 Pulse Ox 99 12/11/24 12:00 O2 Del Method Room Air 12/11/24 12:00 BMI result Body Mass Index 19.1 DS: Data Data Completed and Pending Completed studies during hospitalization [Text1]: Procedures Detoxification Services for Substance Abuse Treatment (08/29/24) Insertion of Endotracheal Airway into Trachea, Via Natural or Artificial Opening (06/18/24) Insertion of Infusion Device into Superior Vena Cava, Percutaneous Approach (06/18/24) Respiratory Ventilation, 24-96 Consecutive Hours (06/18/24) Ultrasonography of Superior Vena Cava, Guidance (06/18/24) Labs on day of discharge: Laboratory Results - last 24 hr 12/11/24 10:26 Sodium 134 L Potassium 3.1 L Chloride 105 Carbon Dioxide 24 Anion Gap 8 L BUN 3 L Creatinine 0.51 Estim Creat Clear Calc 131.5 Estimated GFR > 60 Random Glucose 89 Calcium 8.4 Total Bilirubin 0.7 AST 66 H ALT 42 H Alkaline Phosphatase 118 H Total Protein 6.4 L Albumin 3.2 L Discharge Plan Discharge Anticipated Discharge Date/Time: 12/11/24 13:04 Patient Disposition: Left Against Medical Advice Discharge Diagnosis: Alcohol withdrawal, hypokalemia Referrals: Rupert Flores MD [Primary Care Provider] - 1 Week Discharge Medications: No Action multivitamin [Daily-Laura] Tablet 1 tab PO DAILY Qty: 30 0RF folic acid 1 mg Tablet 1 mg PO DAILY Qty: 30 0RF sucralfate 1 gram tablet 1 g PO QID omeprazole 20 mg capsule,delayed release(DR/EC) 20 mg PO DAILY@0630 quetiapine 50 mg tablet 50 mg PO BEDTIME PRN (Reason: insomnia) sertraline 100 mg tablet 100 mg PO DAILY topiramate 25 mg tablet 25 mg PO BEDTIME hydroxyzine HCl 25 mg tablet 25 mg PO DAILY PRN (Reason: Anxiety) magnesium oxide 400 mg (241.3 mg magnesium) tablet 400 mg PO DAILY levetiracetam 750 mg tablet 750 mg PO BID Discharge Orders: Discharge Order (Routine); Ordered 12/11/24 Ordered By: Grover Brantley Diet: Advance to usual diet Activity on Discharge: As tolerated Print Language: Mongolian Care Plan Goals: recovery from alcohol withdrawal Health Concerns: alcohol dependency Plan of Treatment: left ama, please stay away from alcohol and follow through communittee resources given to you Assessment: see above
== END 2024-12-11 14:29 | disposition left against medical advice (07) | DRG 770 ==
LOC: HO.ED 12-10 11:45 → HO.EDOVER 12-10 17:22 → HO.IMC 12-11 09:53
PROVIDERS: Emergency Medicine; Admitting Provider Internal Medicine; Emergency Provider Emergency Medicine; PCP Family Medicine; Visit Provider Internal Medicine
DX: F10.239 Alcohol dependence with withdrawal, unspecified (principal); D75.838 Other thrombocytosis; G40.909 Epilepsy, unspecified, not intractable, without status epilepticus; E87.6 Hypokalemia; F10.229 Alcohol dependence with intoxication, unspecified; Y90.8 Blood alcohol level of 240 mg/100 ml or more; Z79.899 Other long term (current) drug therapy
CPT/HCPCS: 36415; 80048; 80053; 80076; 80307; 83690; 83735; 85025; 99285; J1200; J1630; J2060; J2405; J2560; J3480; J7120

== ENCOUNTER → 2024-12-10 14:24 | Outpatient (BNV) | payer OTHER, SELFPAY | PROVIDERS: Admitting Provider Internal Medicine; Emergency Provider Emergency Medicine; Visit Provider Internal Medicine | DX: F10.930 Alcohol use, unspecified with withdrawal, uncomplicated (principal); R79.89 Other specified abnormal findings of blood chemistry; R00.0 Tachycardia, unspecified; Z53.29 Procedure and treatment not carried out because of patient's decision for other reasons | CPT/HCPCS: 99222; 99238; 99499 ==

== ENCOUNTER 2025-01-01 21:28 | Inpatient (IN) | payer OTHER, SELFPAY ==
--- NOTE | 2025-01-01 | ECG_ITS ---
Test Reason : SIEZURE Blood Pressure : */* mmHG Vent. Rate : 134 BPM Atrial Rate : 134 BPM P-R Int : 128 ms QRS Dur : 84 ms QT Int : 390 ms P-R-T Axes : * 90 63 degrees QTcB Int : 582 ms Sinus tachycardia Rightward axis Nonspecific ST and T wave abnormality Abnormal ECG When compared with ECG of 16-Sep-2024 13:44, QRS axis Shifted left T wave inversion now evident in Inferior leads Referred By: Generic ED Physician Electronically Signed By: CHING MCCARTHY MD
--- NOTE | ~2025-01-01 | CT_ITS ---
CLINICAL HISTORY: Witnessed seizure, rule out bleed, mass effect CT head without contrast Comparison: Head CT from 09/16/2024 Findings: No acute intracranial hemorrhage. No midline shift or hydrocephalus. No arterial territorial infarction by CT. Right perivascular spaces unchanged. Mucosal thickening of the imaged paranasal sinuses. Imaged mastoid air cells are well aerated. No acute skull fracture. Dysplastic appearance of the left lens is redemonstrated, in the left orbit. IMPRESSION: 1. No acute intracranial abnormality by CT. 2. No significant change compared to 09/16/2024. This document has been electronically signed by: Rigoberto Jennings MD on 01/01/2025 23:47:43
--- NOTE | ~2025-01-01 | XR_ITS ---
CLINICAL HISTORY: Fever, chills, chest pain, R O pneumonia 1 view chest x-ray Comparison: Chest x-ray from 09/16/2024 Findings: No consolidation, pneumothorax, or pleural effusion. Cardiac silhouette and mediastinal contours are within normal limits. No acute fracture, by one view chest x-ray. IMPRESSION: No consolidation. This document has been electronically signed by: Rigoberto Jennings MD on 01/01/2025 22:57:14
[2025-01-01 21:38] VITALS: BP 142/106; BP 149/105; PULSE 121; PULSE 123; RESP 20; TEMP 37.1; O2SAT 97; BMI 19.8
--- NOTE | 2025-01-01 21:39 | ED_ITS ---
HPI - Seizure General Chief Complaint: Seizure Stated Complaint: witnessed seizure lasting 2 mins Time Seen by Provider: 01/01/25 21:38 Source: patient Mode of arrival: EMS Limitations: no limitations History of Present Illness ED Provider: Dr. Jairo Schmidt HPI Narrative: 31-year-old female with a history hypokalemia, alcohol use disorder, alcohol withdrawal syndrome, alcohol withdrawal seizures who presents emergency department for a witnessed seizure. The patient states that she was not been feeling well for proximally 2 days. She states she was had nausea and vomiting, she states she was vomited today too many times to count. She had subjective fever and chills. He was also complaining of anterior chest pain which is worse with breathing and with coughing.. She states she has noted dysuria but no frequency. She was had diffuse body aches and fatigue. According to EMS the patient had a 2 minute seizure that was witnessed by her mother. Patient states that she normally drinks 10 nips of alcohol per day but only had 2 nips to drink today. Seizure History: Yes Related Data Home Medications ?Medication ?Instructions ?Recorded ?Confirmed omeprazole 20 mg capsule,delayed 20 mg PO DAILY@0630 06/19/24 12/10/24 release sucralfate 1 gram tablet 1 g PO QID 06/19/24 12/10/24 hydroxyzine HCl 25 mg tablet 25 mg PO DAILY PRN Anxiety 08/29/24 12/10/24 magnesium oxide 400 mg (241.3 mg 400 mg PO DAILY 08/29/24 12/10/24 magnesium) tablet sertraline 100 mg tablet 100 mg PO DAILY 08/29/24 12/10/24 topiramate 25 mg tablet 25 mg PO BEDTIME 08/29/24 12/10/24 quetiapine 50 mg tablet 50 mg PO BEDTIME PRN insomnia 09/16/24 12/10/24 levetiracetam 750 mg tablet 750 mg PO BID 12/10/24 12/10/24 Previous Rx's ?Medication ?Instructions ?Recorded folic acid 1 mg tablet 1 mg PO DAILY #30 tabs 05/24/23 multivitamin (Daily-Laura tablet) 1 tab PO DAILY #30 tabs 05/24/23 Allergies Allergy/AdvReac Type Severity Reaction Status Date / Time Iodinated Contrast Media AdvReac Hives Verified 03/03/25 21:42 [Contrast Dye] Review of Systems 2 Review of Systems: Yes all other systems are reviewed and are negative [facility] Past Medical History Medical History Acute respiratory failure Acute hypokalemia Acute hyponatremia Alcohol withdrawal Status epilepticus Alcohol use disorder, severe, dependence Withdrawal seizures Depression Alcoholism Social History Social History Household Members: Family Household Members Other:: bf, mom Housing: House Do you presently have visiting nurse or other home services: No Unable to assess alcohol history related to: Unable to respond Alcohol intake: current Alcohol intake frequency: 0-2 drinks per day Alcohol type: hard liquor Comment: pt refused bed alarm Patient Tobacco Use Status: Never used Tobacco Smoked in Last 30 Days: No e-Cigarette/Vaping Use: Currently Using Use of substances other than those prescribed or required for medical reasons: No Substance Use Type: Crack/Cocaine Advance Directives: No Advance Directives Information Provided: No Patient : No service: No Physical Exam 2 Vital Signs: Vital Signs: Last Vital Signs Temp 98.3 F 01/02/25 02:03 Pulse 121 H 01/02/25 02:17 Resp 16 01/02/25 02:17 BP 130/89 01/02/25 02:17 Pulse Ox 99 01/02/25 02:17 O2 Del Method Room Air 01/02/25 02:17 BMI result Body Mass Index 19.8 Exam: General: Awake, has hiccups, strong odor of alcohol on her breath, appears to be acutely intoxicated, answers questions appropriately Head: Normocephalic, atraumatic EENT: PERRL, Lids normal, sclera normal, conjunctiva normal, nose normal , ears normal, throat without erythema or exudates Neck: Supple, no adenopathy Lung: breath sounds symmetric, no wheezing, rales or rhonchi Chest: symmetric movement, nontender Heart: regular rate and rhythm, normal S1, S2 no murmurs or rubs Abdomen: Soft, mild diffuse abdominal tenderness with no localizing tenderness, normoactive bowel sounds, no rebound Back: no vertebral tenderness, no CVAT Extremities: no deformities, moves all extremities symmetrically Neuro: Awake, alert, oriented, normal speech, cranial nerves intact, moves all extremities symmetrically Psych: Pleasant, cooperative Medications Administered Generic Name Dose Route Start Last Admin Trade Name Chanduq PRN Reason Stop Dose Admin Potassium Chloride 10 meq in 100 mls @ 100 mls/hr 01/01/25 23:30 01/02/25 02:16 Potassium Chloride/H20 IV 01/02/25 03:29 100 mls/hr Q1H ARTURO Administration Discontinued Medications Generic Name Dose Route Start Last Admin Trade Name Hermann PRN Reason Stop Dose Admin Diphenhydramine HCl 25 mg 01/01/25 21:50 01/01/25 22:06 Diphenhydramine Hcl 50 Mg/Ml Vial IVPUSH 01/01/25 21:51 25 mg ONCE STA Administration Haloperidol Lactate 5 mg 01/02/25 00:15 01/02/25 00:32 Haloperidol Lactate 5 Mg/Ml Vial IVPUSH 01/02/25 00:16 5 mg STAT STA Administration Sodium Chloride 1,000 mls @ 999 mls/hr 01/01/25 21:50 01/02/25 02:16 Ns IV 01/01/25 22:50 Infused .Q1H1M STA Infusion Magnesium Sulfate 2 gm in 50 mls @ 25 mls/hr 01/01/25 23:26 01/02/25 02:16 Magnesium Sulfate/H2o IV 01/02/25 01:25 Infused ONCE ONE Infusion Sodium Chloride 1,000 mls @ 999 mls/hr 01/01/25 23:27 01/02/25 02:16 Ns IV 01/02/25 00:27 Infused .Q1H1M STA Infusion Lorazepam 1 mg 01/02/25 00:15 01/02/25 00:36 Lorazepam 2 Mg/Ml Vial IVPUSH 01/02/25 00:16 1 mg STAT STA Administration Metoclopramide HCl 10 mg 01/01/25 21:50 01/01/25 22:05 Metoclopramide Hcl 10 Mg/2 Ml Vial IVPUSH 01/01/25 21:51 10 mg ONCE STA Administration Ondansetron HCl 4 mg 01/01/25 23:35 01/01/25 23:52 Ondansetron Hcl 4 Mg/2 Ml Vial IVPUSH 01/01/25 23:36 4 mg ONCE ONE Administration Medical Decision Making Medical Decision Making MDM Narrative: 31-year-old female with a history hypokalemia, alcohol use disorder, alcohol withdrawal syndrome, alcohol withdrawal seizures who presents emergency department for a 2 minute tonic-clonic seizure witnessed by the patient's mother prior to the patient coming to the emergency department. Patient was been sick over the past 2 days with subjective fever, chills, vomiting, multiple episodes of vomiting, fatigue and myalgias. She was complaining of periumbilical pain and chest pain x2 days. Patient normally drinks 10 nips of vodka per day and she thinks that she was only been able to drink 2 nips per day. Patient does have a strong odor of alcohol on her breath and appear to be intoxicated, she had hiccups, in mild diffuse abdominal tenderness. Differential diagnosis: ?Includes but is not limited to alcohol withdrawal seizure, seizure disorder, alcohol withdrawal seizures, mass effect, intracranial bleed, alcohol intoxication, alcohol withdrawal, viral syndrome, COVID-19, influenza, RSV, anemia, electrolyte abnormalities Course: 21:58 I did order laboratory evaluation, COVID-19, RSV and influenza, EKG, chest x- ray, CT scan of the head without IV contrast. Patient was treated with normal saline IV x1 L, Benadryl 25 mg IV and Reglan 10 mg IV. Start physician observation: 23:35 My interpretation patient's laboratory evaluation is as follows: WBC elevated 11,400, MCV low 77.7. H&H was normal 14.4 and 41.0. Platelet count was normal 287,000. Potassium was low 2.8. Serum bicarb low 21. Anion gap elevated 29. Glucose elevated 149. Lactic acid elevated 9.8. Your elevated 36. Troponin below detectable limits. Lipase was normal. Ethanol level was elevated at 443 Patient's laboratory abnormalities are consistent with her alcohol use disorder. Elevated lactic acid could be secondary to his seizure or due to alcoholic/starvation ketosis. I ordered normal saline IV x1, magnesium 2 g IV, potassium chloride 10 mEq IV times 4. Patient continues to vomit and was ordered to get Zofran 4 mg IV. The patient will require close physician observation until she is sober and her electrolyte abnormalities are corrected. 01:57 CT scan of the head without IV contrast was unremarkable. Chest x-ray was unremarkable. The patient has very difficult IV access and also pulled out and IV that was inserted. The patient has not gotten her IV fluid that has been ordered but has been getting magnesium and potassium IV. Patient was repeat lactic acid was unchanged at 9.9 however this is most likely due to a seizure or starvation ketosis and not an infectious process. The patient has been very anxious and continues to vomit therefore I ordered Ativan 1 mg IV Haldol 5 mg IV for nausea and vomiting. At the end of my shift, the patient's care was turned over to my colleague, Dr. Alesha Arreaga. Admission/Observation Consideration of admission/observation: Escalation of care including admission/observation considered (Yes) Lab Data MDM Lab Attestation statement: I reviewed the patient's lab results. 01/01/25 22:08 01/01/25 22:08 Labs: Lab Results 01/01/25 01/02/25 Range/Units 22:08 01:02 WBC 11.4 H (4.8-10.8) X10*3/uL RBC 5.28 (4.20-5.50) X10*6/uL Hgb 14.4 (12.0-16.0) g/dl Hct 41.0 (37.0-47.0) % MCV 77.7 L (80.0-98.0) fL MCH 27.3 (27.0-33.0) pg MCHC 35.1 H (31.0-35.0) g/dl RDW 15.2 (11.0-16.0) % Plt Count 287 D (160-400) X10*3/uL MPV 9.0 L (9.4-12.3) fL Immature Gran % (Auto) 0.3 (0.0-0.4) % Neut % (Auto) 86.4 H (45-73) % Lymph % (Auto) 8.4 L (20-40) % [place] % (Auto) 4.2 (2-11) % Eos % (Auto) 0.3 (0-4) % Baso % (Auto) 0.4 (0-2) % Lymph # (Auto) 1.0 L (1.2-4.9) X10*3/uL [place] # (Auto) 0.5 (0.1-1.2) X10*3/uL Eos # (Auto) 0.0 (0.0-0.4) X10*3/uL Baso # (Auto) 0.0 (0.0-0.2) X10*3/uL Abs Immat Gran (auto) 0.03 (0.00-0.03) X10*3/uL Absolute Neuts (auto) 9.8 H (2.0-8.3) x10*3/uL Absolute Nucleated RBC 0.000 (0.0-0.012) X10*3/uL Nucleated RBC % (auto) 0.0 (0.0-0.2) /100WBC Sodium 139 (135-145) mmol/L Potassium 2.8 L* (3.3-5.1) mmol/L Chloride 92 L (96-108) mmol/L Carbon Dioxide 21 L (22-29) mmol/L Anion Gap 29 H (12-20) BUN 10 (9-16) mg/dL Creatinine 0.69 (0.5-1.4) mg/dL Estim Creat Clear Calc 98.1 Estimated GFR > 60 Random Glucose 149 H (60-115) mg/dL Lactic Acid 9.8 H* (0.5-2.0) mmol/L Lactic Acid F/U @ 2Hr 9.9 H* (0.5-2.0) mmol/L Calcium 8.4 (8.4-10.2) mg/dL Magnesium 1.5 L (1.6-2.6) mg/dL Total Bilirubin 0.4 (0.0-1.0) mg/dL Direct Bilirubin 0.2 (0.0-0.5) mg/dL AST 36 H (5-31) U/L ALT 14 (0-31) U/L Alkaline Phosphatase 163 H (39-117) U/L Troponin I High Sens < 2.7 (<3.5-17.0) ng/L Total Protein 8.3 H (6.5-8.0) g/dL Albumin 3.9 (3.5-5.0) g/dL Lipase 11 (8-78) U/L Ethyl Alcohol 443 H* mg/dL Influenza Type A (PCR) NEGATIVE (Negative) Influenza Type B (PCR) NEGATIVE (Negative) RSV RNA Qual (PCR) NEGATIVE (Negative) SARS-CoV-2 RNA (RT-PCR) NEGATIVE (Negative) Independent Interpretation I performed an independent interpretation of an: EKG and Plain X-Ray Interpretation: My independent interpretation patient's 12 EKG done at 21:42 hours is as follows: Sinus tachycardia with a rate of 134, normal MN interval and QRS duration, prolonged QTC of 582 milliseconds, no ST segment elevation, no ST segment depression, no significant T-wave abnormalities, no PACs, no PVCs My independent interpretation of the patient's one-view chest x-ray is as follows: No acute disease Radiology Impression Discussion of test interpretation with radiology: I have reviewed the radiologist's reading. Radiologist Impression: CT head without contrast Comparison: Head CT from 09/16/2024 Findings: No acute intracranial hemorrhage. No midline shift or hydrocephalus. No arterial territorial infarction by CT. Right perivascular spaces unchanged. Mucosal thickening of the imaged paranasal sinuses. Imaged mastoid air cells are well aerated. No acute skull fracture. Dysplastic appearance of the left lens is redemonstrated, in the left orbit. IMPRESSION: 1. No acute intracranial abnormality by CT. 2. No significant change compared to 09/16/2024. This document has been electronically signed by: Rigoberto Jennings MD on 01/01/2025 23:47:43 1 view chest x-ray Comparison: Chest x-ray from 09/16/2024 Findings: No consolidation, pneumothorax, or pleural effusion. Cardiac silhouette and mediastinal contours are within normal limits. No acute fracture, by one view chest x-ray. IMPRESSION: No consolidation. This document has been electronically signed by: Rigoberto Jennings MD on 01/01/2025 22:57:14 Dictated By: Rigoberto Jennings MD External Record Review External record reviewed: Inpatient record Chronic Conditions Patient?s care impacted by: Other (Alcohol use disorder) Discharge Plan Discharge Clinical Impression: Acute alcohol intoxication, Hypomagnesemia, Acute hypokalemia, Acute dehydration, Seizure Patient Disposition: Still a Patient Prescriptions: No Action multivitamin [Daily-Luara] Tablet 1 tab PO DAILY Qty: 30 0RF folic acid 1 mg Tablet 1 mg PO DAILY Qty: 30 0RF sucralfate 1 gram tablet 1 g PO QID omeprazole 20 mg capsule,delayed release(DR/EC) 20 mg PO DAILY@0630 quetiapine 50 mg tablet 50 mg PO BEDTIME PRN (Reason: insomnia) sertraline 100 mg tablet 100 mg PO DAILY topiramate 25 mg tablet 25 mg PO BEDTIME hydroxyzine HCl 25 mg tablet 25 mg PO DAILY PRN (Reason: Anxiety) magnesium oxide 400 mg (241.3 mg magnesium) tablet 400 mg PO DAILY levetiracetam 750 mg tablet 750 mg PO BID Print Language: Macedonian
[2025-01-01 21:47] VITALS: BP 149/105; PULSE 123; RESP 20; TEMP 37.1; O2SAT 97
[2025-01-01] MEDS: Metoclopramide HCl 10 MG/2 ML VIAL IVPUSH (22:05)
[2025-01-01] MEDS: 0.9 % Sodium Chloride 1,000 ML 999 ML IV (22:06)
[2025-01-01] MEDS: diphenhydrAMINE HCL 50 MG/ML VIAL 25 MG IVPUSH (22:06)
[2025-01-01 22:13] LABS: MANUAL DIFF FLAG NO
[2025-01-01 22:17] LABS: Basophils Percent Auto 0.4 % (0-2); Eosinophils Percent Auto 0.3 % (0-4); Hemoglobin 14.4 g/dl (12.0-16.0); Imm Gran Abs Auto 0.03 X10*3/uL (0.00-0.03); Imm Gran Pct Auto 0.3 % (0.0-0.4); Lymphocytes Percent Auto 8.4 % (20-40); Mean Corpuscular HGB Conc 35.1 g/dl (31.0-35.0); Mean Corpuscular Hemoglobin 27.3 pg (27.0-33.0); Mean Corpuscular Volume 77.7 fL (80.0-98.0); Monocytes Absolute Auto 0.5 X10*3/uL (0.1-1.2); Monocytes Percent Auto 4.2 % (2-11); Neutrophils Absolute Auto 9.8 x10*3/uL (2.0-8.3); Neutrophils Percent Auto 86.4 % (45-73); Platelet Count 287 X10*3/uL (160-400); Red Blood Count 5.28 X10*6/uL (4.20-5.50); Red Cell Distribution Width 15.2 % (11.0-16.0); White Blood Count 11.4 X10*3/uL (4.8-10.8)
[2025-01-01 22:28] LABS: Ethanol 443 mg/dL; Lipase 11 U/L (8-78); Magnesium 1.5 mg/dL (1.6-2.6)
[2025-01-01 22:37] LABS: Alanine Aminotransferase 14 U/L (0-31); Albumin Level 3.9 g/dL (3.5-5.0); Alkaline Phosphatase 163 U/L (39-117); Anion Gap 29 (12-20); Aspartate Amino Transferase 36 U/L (5-31); Bilirubin Direct 0.2 mg/dL (0.0-0.5); Bilirubin Total 0.4 mg/dL (0.0-1.0); Blood Urea Nitrogen 10 mg/dL (9-16); Calcium 8.4 mg/dL (8.4-10.2); Carbon Dioxide 21 mmol/L (22-29); Chloride 92 mmol/L (96-108); Creatinine Clr Calc Pharmacy 98.1; Estimated Glomerular Filt Rate > 60; Glucose Random 149 mg/dL (60-115); Lactic Acid 9.8 mmol/L (0.5-2.0); Potassium 2.8 mmol/L (3.3-5.1); Sodium 139 mmol/L (135-145); Total Protein 8.3 g/dL (6.5-8.0)
[2025-01-01 22:38] LABS: Troponin-I High Sensitivity < 2.7 ng/L (<3.5-17.0)
[2025-01-01 22:50] LABS: Influenza A PCR NEGATIVE (Negative); Influenza B PCR NEGATIVE (Negative); Resp Syncy Virus RNA Qual PCR NEGATIVE (Negative); SARS COV2 PCR INHOUSE NEGATIVE (Negative)
--- OUTSIDE RECORDS SUMMARY | 2025-01-01 23:01 | XMS_ITS | Encounter Summary ---
Author Organization [facility] [place] [address] Care Team Providers Care Tobacco Sample Puller Name Role Phone Rupert Flores MD Primary Care Pr ovider Encounter Details Date Type Department Care Team ([facility] st Contact Info) Description 11/15/2024 Telephone Adult Medicine [address] [phone] Natalie Ortiz, RN Social History Tobacco Use [...] Care Team (Late st Contact Info) Description 01/12/2025 9:00 AM EDT Consult [facility] [address] [facility] [address] [place] [phone] So Malcolm MD 175 [facility] [address] [place] [phone] 01/23/2025 2:15 PM EDT Ancillary Procedure [facility] [address] [facility] [address] [place] [phone] documented as of this encounter Visit Diagnoses Not on filedocumented in this encounter Care Teams Tobacco Sample Puller Relationship Specialty Start Date End Date Rupert Flores MD [address] [place], [place] PCP - General Internal Medicine 05/17/22 documented as of this encounter
--- OUTSIDE RECORDS SUMMARY | 2025-01-01 23:01 | XMS_ITS | Clinical Summary ---
Author Organization [facility] [place] [address] Care Team Providers Care Telephone Clerks Supervisor Name Role Phone Rupert Flores MD Primary [...] tablet 04/07/2024 Active sucralfate (CARAFATE) 1 gram tabletIndicatio ns:Duodenitis without bleeding TAKE 1 TABLET BY MOUTH [...] times a day. 60 tablet 11/28/2024 Active Active Problems Problem Noted Date Diagnosed Date Chronic migraine without aur a without status migrainosus, not intractable 07/12/2024 Duodenitis determined by biopsy 07/12/2024 Fatty liver 07/12/2024 Seizure disorder 07/12/2024 Glaucoma 02/03/2023 Subclinical hypothyroidism 02/03/2023 Insomnia 09/22/2021 Alcohol abuse 02/22/2019 Overview (09/05/2024): Detox 02/17 Strang Anxiety and depression 02/22/2019 Scoliosis 09/04/2010 Attention deficit hyperactivity disorder (ADHD) 12/29/2005 Encounters Date Type Department Care Team Description 11/28/2024 12:30 PM EST Office Visit Adult Medicine [address] [phone] Smita Rabago PA Annual physical exam (Primary Dx); Seizure disorder (CMS/HCC); Anxiety and depression; Insomnia, unspecified type; Chest pain, unspecified type 11/17/2024 Telephone Adult Medicine [address] [phone] Rupert Flores MD Panic Attack 11/15/2024 Telephone Adult Medicine [address] [phone] Natalie Ortiz RN 11/15/2024 Telephone Adult Medicine [address] [phone] Natalie Ortiz RN 11/15/2024 Nurse Triage Adult Medicine [address] [phone] Rupert Flores MD 11/14/2024 Telephone Adult Medicine [facility] [address] [place] [address] Padmini Maradiaga MD Med Refill from Last 3 Months Immunizations Name Administration Dates Next Due DTP 10/22/1994, 2,04/04/1991,1990,1990 [id number] (Pentacel) 2mo to less than 5yo 01/08/1992,04/04/1991,02/01/1991,1990 HPV, Quadrivalent 11/29/2019,05/17/2014,08/31/20 08 Hepatitis B (Uoyfnoc-V-Urnpw , Recombivax HB-Adult) 19yo and older 01/25/2003,08/10/2002 [...] Left PROCEDURE: HISTORICAL CATARACT REMOVAL ESOPHAGOGASTRODUODENOSCOPY PROCEDURE: OH ESOPHAGOGASTRODUODENOSCOPY TRANSORAL DIAGNOSTIC; COMMENT: Grade D esophagitis [...] Neg Hx Relation Name Status Comments Daughter Audrina Alive Father Alive age 50 in good [...] Info) Description 01/12/2025 9:00 AM EDT Consult [facility] [address] [place] [address] So Malcolm MD [address] [facility] [address] [place] [address] 01/23/2025 2:15 PM EDT Ancillary Procedure [facility] - [address] [facility] [address] [place] [address] Health Maintenance Due Date Last Done Comments Hepatitis A Vaccines (1 of 2 - Risk 2-dose series) 2009 Pneumococcal Vaccine: Pediatrics (0 to 5 Years) and At-Risk Patients (6 to 64 Years) (1 of 2 - PCV) 2009 COVID-19 Vaccine ( - season) 2024 [...] on patient's age to complete this topic Meningococcal B Vacine Aged Out No lo nger eligible based on patient's age to complete this topic RSV Immunization Patients Under 20 months Aged Out No longer eligible based on patient's age to complete this topic Procedures Procedure Name Priority Date/Time Associated Diagnosis Comments ECG 12-LEAD Routine 11/28/2024 12:18 PM EST DEPRESSION SCREENING Routine 07/12/2024 LIPID PANEL Routine 07/12/2024 HPV Routine 11/29/2019 HEPATITIS C SCREENING Routine 03/06/2015 HIV SCREENING Routine 03/06/2015 from Last 3 Months or Most Recently Relevant to Health Maintenance Results * ECG 12 lead (11/28/2024 12:18 PM EST) Result [facility] Smita HALL ECG ORDERABLES Final Result * Depression Screening (07/12/2024) Pathologist [facility] Depression Screening abstracted Result [facility] Provider HEALTH MAINTENANCE Final Result * Lipid panel (07/12/2024) [facility] LDL/HDL Ratio 2 0 - 4 Triglycerides 65 0 - 150 mg/dL Cholesterol 166 0 - 200 mg/dL HDL 72 >=40 mg/dL LDL Cholesterol 81 0 - 100 mg/dL Blood Venous blood specimen / Unknown Result [facility] Provider LAB BLOOD ORDERABLES Mel l Result * Cervical Cancer Screening: HPV (11/29/2019) [facility] Cervical Cancer Screening: HPV no interpretation , abstracted Result [facility] Provider HEALTH MAINTENANCE Final Result * HIV Screening (03/06/2015) [facility] HIV Screening abstracted Result [facility] Provider HEALTH MAINTENANCE Final Result * Hepatitis C Screening (03/06/2015) [facility] Hepatitis C Screening abstracted Result [facility] Provider HEALTH MAINTENANCE Final Result from Last 3 Months or Most Recently Relevant to Health Maintenance Insurance [facility] Care Teams Telephone Clerks Supervisor Relationship Specialty Start Date End Date Rupert Flores MD [address] [place], [place] PCP - General Internal Medicine 05/17/22
--- OUTSIDE RECORDS SUMMARY | 2025-01-01 23:01 | XMS_ITS | Clinical Summary ---
Author Organization [facility] Address [address] [place] [address] Care Team Providers Care Director Of Design Name Role Phone Unavailable Primary Care Provider [...] Problem Noted Date Diagnosed Date Seizure 09/16/2024 Social History Tobacco Use Types Packs/Day Years Used Date Smoking Tobacco: Never Assessed [facility] Utilities Answer Date Recorded In the past 12 months has [employer], gas, oil, or water company threatened to shut off services in your [...] any time in the past 12 m [facility], were you homeless or living in a assisted (including now)? Patient unable to answer 09/18/2024 [...] 21-65) 2011 Influenza Vaccine 06/01/2024 COVID-19 Vaccine (1 - 2023-2 5 season) 2024 HIV Screening Completed 09/17/2024 HPV Vaccines Aged Out No longer eligi ble based on patient's age to complete this topic Pneumococcal Vaccine: Pediat summer (0-5 Years) and At-Risk Patients (6 to 49 Years) Aged Out No longer eligible b ased on patient's age to complete this topic Procedures Procedure Name Priority Date/Time Associated Diagnosis Comments HIV 1/2 AG/AB CMIA REFLEX TO CONFIRMATION Routine 09/17/2024 1:44 PM EST from Last 3 Months or Most Recently Relevant to Health Maintenance Results * HIV 1/2 Ag/Ab CMIA Reflex to Confirmation (09/17/2024 1:44 PM EST) HIV 1/2 Ag/Ab CMIA Nonreactive Nonreactive 09/18/2024 11:49 AM EST [facility] Comment: Results show no evidence of infection by HIV 1/2. If clinically indicated, repeat CMIA or test by nucleic acid amplification. HIV 1/2 Antigen/Antibody CMIA reflex to confirmation AND HIV-1 RNA viral load recommended in patients who are taking or have recently taken PrEP. Blood Serum specimen / Unknown 09/17/2024 1:44 PM EST 09/17/2024 2:04 PM EST Sergio Smith PA-C LAB BLOOD ORDERABLES [facility] [address] [place] [place] [address], from Last 3 Months or Most Recently Relevant to Health Maintenance Advance Directives * Full Code (Latest Code Status on File) Date Activated Date Inactivated Comments 09/16/2024 9:32 PM Healthcare Agents on File Name Relationship Healthcare Agent Relationshi p Communication Tonia Christi Parent 4. Next of Kin (Spouse, Adult Child, Parent, Adult Sibling, Grandparent) Dominic Barraza Parent 4. Next of Kin (Spouse, Adult Child, Parent, Adult Sibling, Grandparent)
--- OUTSIDE RECORDS SUMMARY | 2025-01-01 23:01 | XMS_ITS | Encounter Summary ---
Author Organization [facility] [place] [address] Care Team Providers Care Primer Waterproofing Machine Operator Name Role Phone Rupert Flores MD Primary Care Pr ovider Reason for Visit * Reason Onset Date Comments Panic Attack 11/17/2024 Encounter Details Date Type Department Care Team ([facility] st Contact Info) Description 11/17/2024 Telephone Adult Medicine [address] [phone] Rupert Flores MD [address] [place] [id number] Panic Attack Social History Tobacco Use Types [...] traveled recently to another state outside of [place], [place], [place], [place], [place], [place], [place]? no o If yes, did you quarantine [...] of accident/Injury: No If yes, gather 3rd democrat insurance information Third Libertarian Information: not applicable PCP: Rupert Flores MD Payor: / No coverage found. documented in this encounter Plan of Treatment Upcoming Encounters Date Type Department Care Team (Late st Contact Info) Description 01/12/2025 9:00 AM EDT Consult [facility] [address] [facility] [address] [place] [phone] So Malcolm MD 175 [facility] [address] [place] [phone] 01/23/2025 2:15 PM EDT Ancillary Procedure [facility] - [address] [phone] documented as of this encounter Visit Diagnoses Not on filedocumented in this encounter Care Teams Primer Waterproofing Machine Operator Relationship Specialty Start Date End Date Rupert Flores MD [address] [place] [address] PCP - General Internal Medicine 05/17/22 documented as of this encounter
[2025-01-01] MEDS: Magnesium Sulfate/H2O 2 GM/50 ML PIGGYBACK IV (23:52)
[2025-01-01] MEDS: ondansetron HCL 4 MG/2 ML VIAL IVPUSH (23:52)
[2025-01-02] VITALS (11 sets, daily range): BP systolic 104–146; BP diastolic 67–94; PULSE 89–123; RESP 16–187; TEMP 36.1–37.1; O2SAT 95–99
[2025-01-02 00:11] LABS: Reflex Lactate? Lactic Acid Added
[2025-01-02] MEDS: Haloperidol Lactate 5 MG/ML VIAL IVPUSH (00:32)
[2025-01-02] MEDS: LORazepam 2 MG/ML VIAL 1 MG IVPUSH (00:36)
[2025-01-02] MEDS: 0.9 % Sodium Chloride 1,000 ML 999 ML IV (00:51)
[2025-01-02] MEDS: Potassium Chloride/H20 10 MEQ/100 ML PIGGYBACK 100 MEQ IV ×4 (01:00→04:17)
[2025-01-02 01:39] LABS: ~Lactic Acid-LAB USE ONLY 9.9 mmol/L (0.5-2.0)
[2025-01-02 03:05] LABS: Reflex Lactate? 2 Y
[2025-01-02 03:30] LABS: Appearance Urine Cloudy; Color Urine Dark Yellow; Glucose Urine UA Negative (Negative); Leukocyte Esterase Urine Trace (Negative); Nitrite Urine Negative (Negative); Specific Gravity - Urine 1.025 (1.005-1.025); UMIC TRIGGER UACC YES; Urine Blood Negative (Negative); Urine Ketones 40 mg/dL (Negative); Urine Protein 30 (1+) mg/dL (Neg-Trace)
[2025-01-02 03:38] LABS: Bacteria Urine 3+ (None Seen); RBC Urine 0-2 /HPF (0-2); WBC Urine 0-5 /HPF (0-5)
[2025-01-02 03:53] LABS: ~Lactic Acid-LAB USE ONLY 6.3 mmol/L (0.5-2.0)
--- NOTE | 2025-01-02 04:11 | MHC.EDTECH ---
patient wants apple juice. Advised, we will need to wait as patient has been vmiting.
[2025-01-02 06:00] LABS: Anion Gap 18 (12-20); Blood Urea Nitrogen 6 mg/dL (9-16); Calcium 7.2 mg/dL (8.4-10.2); Carbon Dioxide 19 mmol/L (22-29); Chloride 105 mmol/L (96-108); Creatinine Clr Calc Pharmacy 125.3; Estimated Glomerular Filt Rate > 60; Glucose Random 109 mg/dL (60-115); Potassium 3.8 mmol/L (3.3-5.1); Sodium 138 mmol/L (135-145)
[2025-01-02 09:01] LABS: Lactic Acid 6.3 mmol/L (0.5-2.0)
--- NOTE | 2025-01-02 09:37 | MHC.RECOVRN ---
T/W went to meet with ED9 following request for detox bed search received. Pt in bed sitting up shaking and eating ice. Pt in significant ETOH W/D and when asked about detox she replies I don't know yet because I'm being admitted [facility] will meet with pt. once on floor and stablized, for ongoing resources and recovery POC.
[2025-01-02] MEDS: PHENobarbitaL sodium 130 MG/ML IM ONCE 228 MG IM (09:42)
[2025-01-02] MEDS: Lactated Ringers 1,000 ML 999 ML IV (09:43)
--- NOTE | 2025-01-02 09:53 | PM.IMHP ---
History of Present Illness Date of Service: 01/02/25 Chief Complaint: seizures The patient is a 34 year old F with a PMH of epilepsy and alcohol use disorder with prior withdrawal seizures who presents to the ED with reported witnessed seizure at home. Per ED reports, the patient had a 2 minute seizure that was witnessed by the mother at home. The patient is seen and examined in the ED around 930am. She is currently awake and alert. She states that she has a history of epilepsy and is on Keppra, but has not taken it for the last several days due to binge drinking and subsequent nausea/vomiting. She states that on the day prior to admission, she drank about 2-3 drinks (normally she drinks 10+). However, her EtOh is >400 on arrival. She reports headache and throat/epigastric burning. ED course: Labs CBC - essentially within normal limits Chem - Bicarb 21, Gap 29, Lactate initiall 9.8 improved to 6.3, EtOh 443, Mag 1.5, K 2.8, AST 36, ALT 14, Lipase 11 Imaging - CXR negative; CT head - not acute findings Treatment - Multiple L of IVF, multiple rounds of IV antiemetics, IV K and Mag; Pts chemistries have improved but she is not tachycardic and is starting to show signs of withdrawal --> phenobarb initiated Pt will now be admitted for further work up and treatment. Review of Systems Review of Systems: Negative except HPI/interval history. [facility] Medical History Acute respiratory failure Acute hypokalemia Acute hyponatremia Alcohol withdrawal Status epilepticus Alcohol use disorder, severe, dependence Withdrawal seizures Depression Alcoholism Social History Household Members: Family Household Members Other:: bf, mom Housing: House Do you presently have visiting nurse or other home services: No Unable to assess alcohol history related to: Unable to respond Alcohol intake: current Alcohol intake frequency: 0-2 drinks per day Alcohol type: hard liquor Comment: pt refused bed alarm Patient Tobacco Use Status: Never used Tobacco Smoked in Last 30 Days: No e-Cigarette/Vaping Use: Currently Using Use of substances other than those prescribed or required for medical reasons: No Substance Use Type: Crack/Cocaine Advance Directives: No Advance Directives Information Provided: No Patient : No service: No Meds Allergies Allergy/AdvReac Type Severity Reaction Status Date / Time Iodinated Contrast Media AdvReac Hives Verified 01/01/25 21:42 [Contrast Dye] Active Medications: Current Medications Acetaminophen (Acetaminophen 325 Mg Tablet) 650 mg PO Q6H PRN PRN Reason: Pain, Mild 1-3,fever,headache Calcium Carbonate (Calcium Carbonate 750 Mg Tab.Chew) 750 mg PO Q4H PRN PRN Reason: Heartburn Enoxaparin Sodium (Enoxaparin Sodium 40 Mg/0.4 Ml Syringe) 40 mg SUBCUT Q24H [facility] Lactated Ringer's (Lr) 1,000 mls @ 999 mls/hr IV .Q1H1M ARTURO Stop: 01/02/25 10:15 Last Admin: 01/02/25 09:43 Dose: 999 mls/hr Sodium Chloride (Ns) 1,000 mls @ 999 mls/hr IVCONT .Q1H1M ONE Stop: 01/02/25 10:09 Levetiracetam 750 mg/ Sodium (Chloride) 107.5 mls @ 430 mls/hr IV ONCE ONE Stop: 01/02/25 10:05 Magnesium Hydroxide (Milk Of Magnesia 30 Ml Oral.Susp) 30 ml PO DAILY PRN PRN Reason: Constipation Melatonin (Melatonin 3 Mg Tablet) 6 mg PO BEDTIME PRN PRN Reason: Insomnia Pharmacy Consult (Consult Rx Etoh Phenob Im/Po) 1 each MISCELLANE ONCE PRN; Protocol PRN Reason: Consult order Phenobarbital (Phenobarbital 15 Mg Tablet) 45 mg PO BID [facility] Stop: 01/04/25 09:01 Phenobarbital (Phenobarbital 30 Mg Tablet) 30 mg PO BID [facility] Stop: 01/06/25 09:01 Phenobarbital (Phenobarbital 30 Mg Tablet) 30 mg PO BEDTIME [facility] Stop: 01/07/25 21:01 Phenobarbital Sodium (Phenobarbital Sodium 130 Mg/Ml Vial Im Q3hx2) 170 mg IM Q3H [facility] Stop: 01/02/25 15:31 Sodium Chloride (0.9 % Sodium Chloride Flush 3 Ml Syringe) 3 ml IVFLUSH QSHIFT [facility] Home Medications ?Medication ?Instructions ?Recorded ?Confirmed ?Last Taken ?Type omeprazole 20 mg capsule,delayed 20 mg PO DAILY@0630 06/19/24 01/02/25 12/08/24 History release sucralfate 1 gram tablet 1 g PO QID 06/19/24 01/02/25 12/08/24 History hydroxyzine HCl 25 mg tablet 50 mg PO DAILY Anxiety 08/29/24 01/02/25 Unknown History magnesium oxide 400 mg (241.3 mg 400 mg PO DAILY 08/29/24 01/02/25 12/08/24 History magnesium) tablet sertraline 100 mg tablet 100 mg PO DAILY 08/29/24 01/02/25 12/08/24 History topiramate 25 mg tablet 25 mg PO BEDTIME 08/29/24 01/02/25 12/08/24 History quetiapine 50 mg tablet 50 mg PO BEDTIME insomnia 09/16/24 01/02/25 Unknown History levetiracetam 750 mg tablet 750 mg PO BID 12/10/24 01/02/25 12/08/24 History Physical Exam Vital Signs and Narrative: Vital Signs: Last Vital Signs Temp 98.7 F 01/02/25 05:16 Pulse 123 H 01/02/25 05:16 Resp 19 01/02/25 05:16 BP 121/81 01/02/25 05:16 Pulse Ox 99 01/02/25 05:16 O2 Del Method Room Air 01/02/25 05:16 BMI result Body Mass Index 19.8 Const: Other: Constitutional - Awake and Alert, tremulous Eyes - PERRLA, EOMI Cardiovascular - S1S2, tachycardic in the 120s Respiratory - Normal lung expansion, Normal respiratory effort, No respiratory distress, CTA bilaterally Gastrointestinal - NT / ND; +BS; No rebound or guarding - No CVA tenderness Extremities - no calf tenderness bilaterally, no swelling Musculoskeletal - Normal inspection, normal ROM Skin - Warm/Dry Neurological - Alert & oriented x3, No focal deficit; tremors Psychological - Appropriate affect Results Labs 01/01/25 22:08 01/02/25 05:43 Labs: Laboratory Results - last 24 hr 01/01/25 01/02/25 01/02/25 22:08 01:02 03:18 MCV 77.7 L MCH 27.3 MCHC 35.1 H RDW 15.2 Plt Count 287 D MPV 9.0 L Immature Gran % (Auto) 0.3 Neut % (Auto) 86.4 H Lymph % (Auto) 8.4 L [place] % (Auto) 4.2 Eos % (Auto) 0.3 Baso % (Auto) 0.4 Lymph # (Auto) 1.0 L [place] # (Auto) 0.5 Eos # (Auto) 0.0 Baso # (Auto) 0.0 Abs Immat Gran (auto) 0.03 Absolute Neuts (auto) 9.8 H Absolute Nucleated RBC 0.000 Nucleated RBC % (auto) 0.0 Anion Gap 29 H Estim Creat Clear Calc 98.1 Estimated GFR > 60 Random Glucose 149 H Lactic Acid 9.8 H* Lactic Acid F/U @ 2Hr 9.9 H* Lactic Acid F/U @ 4Hr Calcium 8.4 Magnesium 1.5 L Total Bilirubin 0.4 Direct Bilirubin 0.2 AST 36 H ALT 14 Alkaline Phosphatase 163 H Total Protein 8.3 H Albumin 3.9 Lipase 11 Urine Color Dark Yellow Urine Appearance Cloudy Urine pH 6.0 Ur Specific [place] 1.025 Urine Protein 30 (1+) H Urine Glucose (UA) Negative Urine Ketones 40 Urine Blood Negative Urine Nitrite Negative Ur Leukocyte Esterase Trace H Urine RBC 0-2 Urine WBC 0-5 Ur Squamous Epith Cells 11-20 Urine Bacteria 3+ Hyaline Casts 6-10 Ethyl Alcohol 443 H* Influenza Type A (PCR) NEGATIVE Influenza Type B (PCR) NEGATIVE RSV RNA Qual (PCR) NEGATIVE SARS-CoV-2 RNA (RT-PCR) NEGATIVE 01/02/25 01/02/25 01/02/25 03:25 05:43 08:24 MCV MCH MCHC RDW Plt Count MPV Immature Gran % (Auto) Neut % (Auto) Lymph % (Auto) [place] % (Auto) Eos % (Auto) Baso % (Auto) Lymph # (Auto) [place] # (Auto) Eos # (Auto) Baso # (Auto) Abs Immat Gran (auto) Absolute Neuts (auto) Absolute Nucleated RBC Nucleated RBC % (auto) Anion Gap 18 Estim Creat Clear Calc 125.3 Estimated GFR > 60 Random Glucose 109 Lactic Acid 6.3 H* Lactic Acid F/U @ 2Hr Lactic Acid F/U @ 4Hr 6.3 H* Calcium 7.2 L D Magnesium Total Bilirubin Direct Bilirubin AST ALT Alkaline Phosphatase Total Protein Albumin Lipase Urine Color Urine Appearance Urine pH Ur Specific [place] Urine Protein Urine Glucose (UA) Urine Ketones Urine Blood Urine Nitrite Ur Leukocyte Esterase Urine RBC Urine WBC Ur Squamous Epith Cells Urine Bacteria Hyaline Casts Ethyl Alcohol Influenza Type A (PCR) Influenza Type B (PCR) RSV RNA Qual (PCR) SARS-CoV-2 RNA (RT-PCR) Assessment and Plan (1) Seizure: Status: Acute Plan 34 yo F with Epielpsy and alcohol use disorder presenting with witnessed seizure lasting 2 minutes. 1. Seizures likely due to medication non-compliance; EtOH > 400 on arrival hence doubt withdrawal seizures pt reports missing multiple days of her keppra -- will give IV 750mg now and resume PO home dose this evening compliance with medications has been stressed 2. Starvation ketosis and anion gap metabolic acidosis IVF and start PO intake 3. Alcohol use disorder with acute alcohol withdrawal phenobarb per protocol 4. HypoK/HypoMg repleted IV monitor due to #3 an #2 5. Lactic acidosis not due to sepsis, likely from #1, 2, 3 6. alcoholic gastritis PPI 7. Mood continue baseline meds Full Code DVT pptx - lovenox Pt with seizures due to non-compliance, multiple electrolyte abnormalities/starvation ketosis now complicated by alcohol withdrawal, therefore expected to require at least 2 midnights in the hospital for management, hence will be admitted as inpatient. Med rec pending -- will resume baseline meds as appropriate Quality Stroke Does the patient have a stroke diagnosis?: No VTE Prior VTE?: No VTE Risk Level:: Medical - moderate - high VTE Device Contraindication: N/A - Device Ordered VTE Drug Contraindication: N/A - Med Ordered
[2025-01-02 10:30] LABS: Reflex Lactate? Lactic Acid Added
--- NOTE | 2025-01-02 10:36 | PHA.MEDREC ---
Addendum entered by Eliseo Bernal RPh 01/02/25 10:42: Reviewed by [facility] Original Note: Pharmacy Consult ? Medication Reconciliation Pharmacy has completed the medication reconciliation. Spoke with patient to confirm medications. She takes 2 tabs of hydroxyzine daily and uses quetiapine every night. She reports still using sucrulfate QID, LF per [facility] was Jul 2024.
[2025-01-02] MEDS: levETIRAcetam 750 MG in 0.9 % Sodium Chloride 100 ML 430 MG IV (10:52)
[2025-01-02] MEDS: Folic Acid 1 MG TABLET PO (11:13)
[2025-01-02] MEDS: Famotidine/PF 20 MG/2 ML VIAL IVPUSH (11:13)
[2025-01-02] MEDS: PHENobarbitaL sodium 130 MG/ML VIAL IM Q3Hx2 170 MG IM ×2 (12:23→15:51)
[2025-01-02] MEDS: Sucralfate 1 GM TABLET PO ×3 (12:28→21:59)
[2025-01-02 14:16] LABS: ~Lactic Acid-LAB USE ONLY 10.3 mmol/L (0.5-2.0)
[2025-01-02 14:35] LABS: Cancel Lactic Acid Canceled
[2025-01-02] MEDS: Ketorolac Tromethamine 15 MG/ML VIAL IVPUSH (15:48)
[2025-01-02 15:57] LABS: Reflex Lactate? 2 Y
[2025-01-02 17:08] LABS: ~Lactic Acid-LAB USE ONLY 2.9 mmol/L (0.5-2.0)
[2025-01-02] MEDS: 0.9 % Sodium Chloride Flush 3 ML SYRINGE IVFLUSH (17:15)
[2025-01-02] MEDS: PHENobarbitaL 15 MG TABLET 45 MG PO (21:59)
[2025-01-02] MEDS: QUEtiapine Fumarate 50 MG TABLET PO (21:59)
[2025-01-02] MEDS: levETIRAcetam 250 MG TABLET 750 MG PO (21:59)
[2025-01-02] MEDS: Topiramate 25 MG TABLET PO (22:00)
[2025-01-03 03:48] VITALS: BP 97/64; PULSE 100; RESP 16; TEMP 36.3; O2SAT 95
[2025-01-03] MEDS: Omeprazole 20 MG CAPSULE.DR PO (06:26)
[2025-01-03] MEDS: Acetaminophen 325 MG TABLET 650 MG PO (06:31)
[2025-01-03 06:54] LABS: Hemoglobin 11.6 g/dl (12.0-16.0); Mean Corpuscular HGB Conc 34.1 g/dl (31.0-35.0); Mean Corpuscular Hemoglobin 27.2 pg (27.0-33.0); Mean Corpuscular Volume 79.8 fL (80.0-98.0); Red Blood Count 4.26 X10*6/uL (4.20-5.50); White Blood Count 5.8 X10*3/uL (4.8-10.8)
[2025-01-03 07:19] VITALS: BP 110/72; PULSE 106; RESP 16; TEMP 37.2; O2SAT 99
[2025-01-03 07:21] LABS: Alanine Aminotransferase 15 U/L (0-31); Albumin Level 3.3 g/dL (3.5-5.0); Alkaline Phosphatase 153 U/L (39-117); Aspartate Amino Transferase 40 U/L (5-31); Bilirubin Total 1.1 mg/dL (0.0-1.0); Blood Urea Nitrogen < 3 mg/dL (9-16); Creatinine Clr Calc Pharmacy 130.1; Estimated Glomerular Filt Rate > 60; Glucose Random 90 mg/dL (60-115); Total Protein 6.7 g/dL (6.5-8.0)
[2025-01-03 07:34] LABS: Anion Gap 11 (12-20); Calcium 8.4 mg/dL (8.4-10.2); Carbon Dioxide 26 mmol/L (22-29); Chloride 96 mmol/L (96-108); Sodium 130 mmol/L (135-145)
[2025-01-03 07:36] LABS: Potassium 2.7 mmol/L (3.3-5.1)
[2025-01-03 08:15] LABS: Magnesium 1.3 mg/dL (1.6-2.6)
[2025-01-03] MEDS: Sucralfate 1 GM TABLET PO ×2 (08:52→12:18)
[2025-01-03] MEDS: Magnesium Oxide 400 MG TABLET PO (08:52)
[2025-01-03] MEDS: hydrOXYzine HCL 50 MG TABLET PO (08:53)
[2025-01-03] MEDS: Potassium Chloride ER 20 MEQ TAB.ER.PRT 40 MEQ PO (08:53)
[2025-01-03] MEDS: levETIRAcetam 250 MG TABLET 750 MG PO (08:53)
[2025-01-03] MEDS: Multivitamin TABLET 1 TAB PO (08:53)
[2025-01-03] MEDS: Sertraline HCL 100 MG TABLET PO (08:54)
[2025-01-03] MEDS: PHENobarbitaL 15 MG TABLET 45 MG PO (08:54)
[2025-01-03] MEDS: Folic Acid 1 MG TABLET PO (08:54)
[2025-01-03] MEDS: Potassium Chloride/H20 10 MEQ/100 ML PIGGYBACK 100 MEQ IV ×2 (08:56→15:09)
[2025-01-03] MEDS: 0.9 % Sodium Chloride Flush 3 ML SYRINGE IVFLUSH (08:56)
[2025-01-03 09:07] LABS: Platelet Count 134 X10*3/uL (160-400)
--- NOTE | 2025-01-03 10:23 | P.PNIM_ITS ---
Subjective Subjective Date of Service: 01/03/25 Interval History: seen and examined less abd pain, has chronic IBANEZ improved withdrawal Review of Systems Negative except HPI/interval history. Physical Exam 2 Vital Signs: Vital Signs: Last Vital Signs Temp 98.9 F 01/03/25 07:19 Pulse 106 H 01/03/25 07:19 Resp 16 01/03/25 07:19 BP 110/72 01/03/25 07:19 Pulse Ox 99 01/03/25 07:19 O2 Del Method Room Air 01/03/25 07:19 BMI result Body Mass Index 19.8 Const: Other: General - no acute distress, appears comfortable Cardiovascular - regular rate and rhythm, S1-S2 Lungs - normal respiratory effort, clear to auscultation bilaterally, no wheezing Abdomen - soft, nontender, no rebound or guarding Extremities - no edema bilaterally Neuro - awake and alert, no focal deficits; mild tremors Objective Data Active Medications Acetaminophen (Acetaminophen 325 Mg Tablet) 650 mg PO Q6H PRN PRN Reason: Pain, Mild 1-3,fever,headache Last Admin: 01/03/25 06:31 Dose: 650 mg Documented By: ALLY Calcium Carbonate (Calcium Carbonate 750 Mg Tab.Chew) 750 mg PO Q4H PRN PRN Reason: Heartburn Enoxaparin Sodium (Enoxaparin Sodium 40 Mg/0.4 Ml Syringe) 40 mg SUBCUT Q24H [facility] Last Admin: 01/03/25 08:55 Dose: Not Given Documented By: TISH Non-Admin Reason: Patient Refused Folic Acid (Folic Acid 1 Mg Tablet) 1 mg PO DAILY [facility] Last Admin: 01/03/25 08:54 Dose: 1 mg Documented By: TISH Hydroxyzine HCl (Hydroxyzine Hcl 50 Mg Tablet) 50 mg PO DAILY [facility] Last Admin: 01/03/25 08:53 Dose: 50 mg Documented By: TISH Levetiracetam (Levetiracetam 250 Mg Tablet) 750 mg PO BID [facility] Last Admin: 01/03/25 08:53 Dose: 750 mg Documented By: TSIH Magnesium Hydroxide (Milk Of Magnesia 30 Ml Oral.Susp) 30 ml PO DAILY PRN PRN Reason: Constipation Magnesium Oxide (Magnesium Oxide 400 Mg Tablet) 400 mg PO DAILY [facility] Last Admin: 01/03/25 08:52 Dose: 400 mg Documented By: TISH Melatonin (Melatonin 3 Mg Tablet) 6 mg PO BEDTIME PRN PRN Reason: Insomnia Multivitamins/Vitamin C (Multivitamin Tablet) 1 tab PO DAILY [facility] Last Admin: 01/03/25 08:53 Dose: 1 tab Documented By: TISH Omeprazole (Omeprazole 20 Mg Capsule.) 20 mg PO DAILY@0630 [facility] Last Admin: 01/03/25 06:26 Dose: 20 mg Documented By: ALLY Pharmacy Consult (Consult Rx Etoh Phenob Im/Po) 1 each MISCELLANE ONCE PRN; Protocol PRN Reason: Consult order Phenobarbital (Phenobarbital 15 Mg Tablet) 45 mg PO BID [facility] Stop: 01/04/25 09:01 Last Admin: 01/03/25 08:54 Dose: 45 mg Documented By: TISH Phenobarbital (Phenobarbital 30 Mg Tablet) 30 mg PO BID [facility] Stop: 01/06/25 09:01 Phenobarbital (Phenobarbital 30 Mg Tablet) 30 mg PO BEDTIME [facility] Stop: 01/07/25 21:01 Quetiapine Fumarate (Quetiapine Fumarate 50 Mg Tablet) 50 mg PO BEDTIME [facility] Last Admin: 01/02/25 21:59 Dose: 50 mg Documented By: ALLY Sertraline HCl (Sertraline Hcl 100 Mg Tablet) 100 mg PO DAILY [facility] Last Admin: 01/03/25 08:54 Dose: 100 mg Documented By: TISH Sodium Chloride (0.9 % Sodium Chloride Flush 3 Ml Syringe) 3 ml IVFLUSH QSHICHI [facility] Last Admin: 01/03/25 08:56 Dose: 3 ml Documented By: TISH Sucralfate (Sucralfate 1 Gm Tablet) 1 gm PO QID [facility] Last Admin: 01/03/25 08:52 Dose: 1 gm Documented By: TISH Topiramate (Topiramate 25 Mg Tablet) 25 mg PO BEDTIME [facility] Last Admin: 01/02/25 22:00 Dose: 25 mg Documented By: ALLY Labs 01/03/25 06:21 01/03/25 06:21 Labs: Laboratory Results - last 24 hr 01/02/25 01/02/25 01/03/25 10:52 16:16 06:21 MCV 79.8 L MCH 27.2 MCHC 34.1 RDW 15.0 Plt Count 134 L D MPV 10.0 Absolute Nucleated RBC 0.000 Nucleated RBC % (auto) 0.0 Anion Gap 11 L Estim Creat Clear Calc 130.1 Estimated GFR > 60 Random Glucose 90 Lactic Acid F/U @ 2Hr 10.3 H* Lactic Acid F/U @ 4Hr 2.9 H* Calcium 8.4 D Magnesium 1.3 L* Total Bilirubin 1.1 H AST 40 H ALT 15 Alkaline Phosphatase 153 H Total Protein 6.7 Albumin 3.3 L Assessment and Plan (1) Seizure: Status: Acute (2) Acute hypokalemia: Status: Acute Plan 34 yo F with Epielpsy and alcohol use disorder presenting with witnessed seizure lasting 2 minutes. 1. Seizures, suspected generalized/tonic-clonic likely due to medication non-compliance EtOH > 400 on arrival hence doubt withdrawal seizures continue keppra - pt states has outpt f/u with neurology this month 2. Starvation ketosis and anion gap metabolic acidosis resolving tolerating breaktfast this AM 3. Alcohol use disorder with acute alcohol withdrawal phenobarb per protocol pt interested in AUD treatment -- addiction med consult placed 4. HypoK/HypoMg/hypoNa repleted on admission, still persistently low will give po 40meq and 20 iv kcl; 2gm iv mag recheck later 5. Lactic acidosis not due to sepsis, likely from #1, 2, 3 improved 6. alcoholic gastritis PPI 7. Mood continue baseline meds Full Code DVT pptx - lovenox dispo: likely home today vs tomorrow pending improvement in electrolytes and tolerance of PO intake Quality Stroke Does the patient have a stroke diagnosis?: No VTE Prior VTE?: No VTE Risk Level:: Medical - moderate - high VTE Device Contraindication: N/A - Device Ordered VTE Drug Contraindication: N/A - Med Ordered
--- NOTE | 2025-01-03 10:24 | P.CDIM_ITS ---
PROVIDER RESPONSE TEXT: To clarify, the appropriate diagnosis supported by the clinical indicators: Other (explain): Suspected tonic-clonic due to medication non-compliance QUERY TEXT: PHYSICIAN'S DOCUMENTATION REQUEST Date of Query: 01/03/2025 08:43 AM EST Patient Name: XUAN CALZADA Admit Date: 01/02/2025 Dear Lucio Bonilla MD, A review of the medical record indicates additional documentation may be needed. Please review below and update the documentation accordingly. A diagnosis of seizure(s) was documented on 01/02/25. Clinical Indicators: patient has a history of seizures, noncompliance with medication (Keppra) alcohol level > 400, doubt withdrawal seizures If possible, please further clarify the type/etiology of seizure(s): Idiopathic Febrile please further specify simple or complex Due to stroke Post-traumatic Due to external cause please further specify if drug, alcohol, stress, etc. Absence Generalized epilepsy (grand mal, myoclonic, atonic, clonic, tonic-clonic, etc.) Focal or partial please further specify simple or complex Petit mal Recurrent please further specify type/etiology Other (explain) Clinically unable to determine (explain) Thank you, Leonora Stafford RN Use of terms such as suspected, likely, concern for, or probable (associated with a specific diagnosi s that is being evaluated, monitored, or treated as if it exists) are acceptable and can be coded in the inpatient se tting, when documented at the time of discharge. Please use your independent medical judgment in providing your response. THIS QUERY IS PART OF THE PERMANENT MEDICAL RECORD
[2025-01-03 11:31] VITALS: BP 118/81; PULSE 113; RESP 16; TEMP 36.5; O2SAT 99
--- NOTE | 2025-01-03 11:56 | HO.ADDICT_ITS ---
History of Present Illness Date of Service: 01/03/25 Chief Complaint: witnessed seizure lasting 2 mins Reason for Consult: AUD Sources of Information: patient interviewed and chart reviewed HPI Narrative: Patient is a 34 year old female with history of AUD currently medically admitted following a witnessed seizure. Patient seen in room 454. Currently on phenobaritol taper--reporting withdrawl sx are well managed, NOBLE arellano Appearing overall comfortable, laying in bed, expressed feeling tired. She reports she has been drinking alcohol since she was 13 years old and over time, amount and frequency has increased to daily. She is a bit guarded when meeting with this policy writer, however states that she has been prescribed Naltrexone in the past, but was not consistent with taking it daily. Initially expressed intereset in Vivitrol as a way to ensure she was taking medication, but later stated she wanted to think about it some and address some things at home. Patient also screened +AUDIT C This policy writer met with patient to?discuss current alcohol use and concerns related to increased risk of alcohol related?problems.?. Discussed?how alcohol use has impacted health, including negative impact on overall health, and personal relationships (no longer has custody of her daughter) Supports:?She identified her partner as her main support, and verbalized knowledge of recovery supports available Discussed risk reduction strategies including drinking below the recommended limit, and medication to assist with reducing intake Review of Systems Constitutional: Reports lethargy, Reports malaise and Reports poor appetite Gastrointestinal: Reports nausea Psychiatric: Reports anxiety and Reports depression Diagnostics Vital Signs (24Hr): Vital Signs - 24 hr 01/02/25 15:21 01/02/25 19:38 01/02/25 23:53 Temperature 97.0 F 97.8 F 98.4 F Pulse Rate 104 H 100 89 Respiratory Rate 18 16 16 Blood Pressure 122/82 122/82 104/67 Pulse Oximetry 98 99 97 Oxygen Delivery Method Room Air Room Air Room Air 01/03/25 03:48 01/03/25 07:19 01/03/25 11:31 Temperature 97.4 F 98.9 F 97.7 F Pulse Rate 100 106 H 113 H Respiratory Rate 16 16 16 Blood Pressure 97/64 110/72 118/81 Pulse Oximetry 95 99 99 Oxygen Delivery Method Room Air Room Air Room Air BMI result Body Mass Index 19.8 Labs 01/03/25 06:21 01/03/25 06:21 Labs: Laboratory Results - last 48 hr 01/01/25 01/02/25 01/02/25 22:08 01:02 03:18 WBC 11.4 H RBC 5.28 Hgb 14.4 Hct 41.0 MCV 77.7 L MCH 27.3 MCHC 35.1 H RDW 15.2 Plt Count 287 D MPV 9.0 L Immature Gran % (Auto) 0.3 Neut % (Auto) 86.4 H Lymph % (Auto) 8.4 L Bates % (Auto) 4.2 Eos % (Auto) 0.3 Baso % (Auto) 0.4 Lymph # (Auto) 1.0 L Bates # (Auto) 0.5 Eos # (Auto) 0.0 Baso # (Auto) 0.0 Abs Immat Gran (auto) 0.03 Absolute Neuts (auto) 9.8 H Absolute Nucleated RBC 0.000 Nucleated RBC % (auto) 0.0 Sodium 139 Potassium 2.8 L* Chloride 92 L Carbon Dioxide 21 L Anion Gap 29 H BUN 10 Creatinine 0.69 Estim Creat Clear Calc 98.1 Estimated GFR > 60 Random Glucose 149 H Lactic Acid 9.8 H* Lactic Acid F/U @ 2Hr 9.9 H* Lactic Acid F/U @ 4Hr Calcium 8.4 Magnesium 1.5 L Total Bilirubin 0.4 Direct Bilirubin 0.2 AST 36 H ALT 14 Alkaline Phosphatase 163 H Troponin I High Sens < 2.7 Total Protein 8.3 H Albumin 3.9 Lipase 11 Urine Color Dark Yellow Urine Appearance Cloudy Urine pH 6.0 Ur Specific [place] 1.025 Urine Protein 30 (1+) H Urine Glucose (UA) Negative Urine Ketones 40 Urine Blood Negative Urine Nitrite Negative Ur Leukocyte Esterase Trace H Urine RBC 0-2 Urine WBC 0-5 Ur Squamous Epith Cells 11-20 Urine Bacteria 3+ Hyaline Casts 6-10 Ethyl Alcohol 443 H* Influenza Type A (PCR) NEGATIVE Influenza Type B (PCR) NEGATIVE RSV RNA Qual (PCR) NEGATIVE SARS-CoV-2 RNA (RT-PCR) NEGATIVE 01/02/25 01/02/25 01/02/25 03:25 05:43 08:24 WBC RBC Hgb Hct MCV MCH MCHC RDW Plt Count MPV Immature Gran % (Auto) Neut % (Auto) Lymph % (Auto) Bates % (Auto) Eos % (Auto) Baso % (Auto) Lymph # (Auto) Bates # (Auto) Eos # (Auto) Baso # (Auto) Abs Immat Gran (auto) Absolute Neuts (auto) Absolute Nucleated RBC Nucleated RBC % (auto) Sodium 138 Potassium 3.8 D Chloride 105 Carbon Dioxide 19 L Anion Gap 18 BUN 6 L Creatinine 0.54 Estim Creat Clear Calc 125.3 Estimated GFR > 60 Random Glucose 109 Lactic Acid 6.3 H* Lactic Acid F/U @ 2Hr Lactic Acid F/U @ 4Hr 6.3 H* Calcium 7.2 L D Magnesium Total Bilirubin Direct Bilirubin AST ALT Alkaline Phosphatase Troponin I High Sens Total Protein Albumin Lipase Urine Color Urine Appearance Urine pH Ur Specific [place] Urine Protein Urine Glucose (UA) Urine Ketones Urine Blood Urine Nitrite Ur Leukocyte Esterase Urine RBC Urine WBC Ur Squamous Epith Cells Urine Bacteria Hyaline Casts Ethyl Alcohol Influenza Type A (PCR) Influenza Type B (PCR) RSV RNA Qual (PCR) SARS-CoV-2 RNA (RT-PCR) 01/02/25 01/02/25 01/03/25 10:52 16:16 06:21 WBC 5.8 RBC 4.26 Hgb 11.6 L Hct 34.0 L MCV 79.8 L MCH 27.2 MCHC 34.1 RDW 15.0 Plt Count 134 L D MPV 10.0 Immature Gran % (Auto) Neut % (Auto) Lymph % (Auto) Bates % (Auto) Eos % (Auto) Baso % (Auto) Lymph # (Auto) Bates # (Auto) Eos # (Auto) Baso # (Auto) Abs Immat Gran (auto) Absolute Neuts (auto) Absolute Nucleated RBC 0.000 Nucleated RBC % (auto) 0.0 Sodium 130 L Potassium 2.7 L* D Chloride 96 Carbon Dioxide 26 Anion Gap 11 L BUN < 3 L Creatinine 0.52 Estim Creat Clear Calc 130.1 Estimated GFR > 60 Random Glucose 90 Lactic Acid Lactic Acid F/U @ 2Hr 10.3 H* Lactic Acid F/U @ 4Hr 2.9 H* Calcium 8.4 D Magnesium 1.3 L* Total Bilirubin 1.1 H Direct Bilirubin AST 40 H ALT 15 Alkaline Phosphatase 153 H Troponin I High Sens Total Protein 6.7 Albumin 3.3 L Lipase Urine Color Urine Appearance Urine pH Ur Specific [place] Urine Protein Urine Glucose (UA) Urine Ketones Urine Blood Urine Nitrite Ur Leukocyte Esterase Urine RBC Urine WBC Ur Squamous Epith Cells Urine Bacteria Hyaline Casts Ethyl Alcohol Influenza Type A (PCR) Influenza Type B (PCR) RSV RNA Qual (PCR) SARS-CoV-2 RNA (RT-PCR) Medications Medications Current Medications Acetaminophen (Acetaminophen 325 Mg Tablet) 650 mg PO Q6H PRN PRN Reason: Pain, Mild 1-3,fever,headache Last Admin: 01/03/25 06:31 Dose: 650 mg Calcium Carbonate (Calcium Carbonate 750 Mg Tab.Chew) 750 mg PO Q4H PRN PRN Reason: Heartburn Enoxaparin Sodium (Enoxaparin Sodium 40 Mg/0.4 Ml Syringe) 40 mg SUBCUT Q24H [facility] Last Admin: 01/03/25 08:55 Dose: Not Given Folic Acid (Folic Acid 1 Mg Tablet) 1 mg PO DAILY [facility] Last Admin: 01/03/25 08:54 Dose: 1 mg Hydroxyzine HCl (Hydroxyzine Hcl 50 Mg Tablet) 50 mg PO DAILY [facility] Last Admin: 01/03/25 08:53 Dose: 50 mg Magnesium Sulfate (Magnesium Sulfate/H2o) 2 gm in 50 mls @ 25 mls/hr IV ONCE ONE Stop: 01/03/25 12:24 Levetiracetam (Levetiracetam 250 Mg Tablet) 750 mg PO BID [facility] Last Admin: 01/03/25 08:53 Dose: 750 mg Magnesium Hydroxide (Milk Of Magnesia 30 Ml Oral.Susp) 30 ml PO DAILY PRN PRN Reason: Constipation Magnesium Oxide (Magnesium Oxide 400 Mg Tablet) 400 mg PO DAILY [facility] Last Admin: 01/03/25 08:52 Dose: 400 mg Melatonin (Melatonin 3 Mg Tablet) 6 mg PO BEDTIME PRN PRN Reason: Insomnia Multivitamins/Vitamin C (Multivitamin Tablet) 1 tab PO DAILY [facility] Last Admin: 01/03/25 08:53 Dose: 1 tab Omeprazole (Omeprazole 20 Mg Capsule.Dr) 20 mg PO DAILY@0630 [facility] Last Admin: 01/03/25 06:26 Dose: 20 mg Pharmacy Consult (Consult Rx Etoh Phenob Im/Po) 1 each MISCELLANE ONCE PRN; Protocol PRN Reason: Consult order Phenobarbital (Phenobarbital 15 Mg Tablet) 45 mg PO BID [facility] Stop: 01/04/25 09:01 Last Admin: 01/03/25 08:54 Dose: 45 mg Phenobarbital (Phenobarbital 30 Mg Tablet) 30 mg PO BID [facility] Stop: 01/06/25 09:01 Phenobarbital (Phenobarbital 30 Mg Tablet) 30 mg PO BEDTIME [facility] Stop: 01/07/25 21:01 Quetiapine Fumarate (Quetiapine Fumarate 50 Mg Tablet) 50 mg PO BEDTIME [facility] Last Admin: 01/02/25 21:59 Dose: 50 mg Sertraline HCl (Sertraline Hcl 100 Mg Tablet) 100 mg PO DAILY [facility] Last Admin: 01/03/25 08:54 Dose: 100 mg Sodium Chloride (0.9 % Sodium Chloride Flush 3 Ml Syringe) 3 ml IVFLUSH QSHIFT [facility] Last Admin: 01/03/25 08:56 Dose: 3 ml Sucralfate (Sucralfate 1 Gm Tablet) 1 gm PO QID [facility] Last Admin: 01/03/25 08:52 Dose: 1 gm Topiramate (Topiramate 25 Mg Tablet) 25 mg PO BEDTIME [facility] Last Admin: 01/02/25 22:00 Dose: 25 mg Allergies Allergies Allergy/AdvReac Type Severity Reaction Status Date / Time Iodinated Contrast Media AdvReac Hives Verified 01/01/25 21:42 [Contrast Dye] Assessment & Plan Assessment & Plan (1) Alcohol use disorder, severe, dependence: Status: Acute Code(s): F10.20 - Alcohol dependence, uncomplicated Assessment and Plan: * patient plans to restart naltrexone, and reports she has some at home * she is undecided about making an appt for continuation of treatment or to move forward with vivitrol injection * auto wheel alignment specialist to provide contact information for [facility] should patient decide she wants to continue treatment outpatient Total time managing care of this patient today ___30_ minutes. 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
[2025-01-03] MEDS: Magnesium Sulfate/H2O 2 GM/50 ML PIGGYBACK IV (12:18)
--- NOTE | 2025-01-03 14:27 | MHC.CM.PN ---
Pt self-care, pt vague when answering where she lives, stating she has been bouncing around. Pt will arrange her own transport at time of discharge, Education provided on HCP, pt declined at this time. PCP: Dr. Rupert Flores
[2025-01-03 15:22] LABS: Magnesium 2.8 mg/dL (1.6-2.6); Potassium 3.4 mmol/L (3.3-5.1)
[2025-01-03 15:34] VITALS: BP 127/84; PULSE 94; RESP 20; TEMP 36.1; O2SAT 98
--- NOTE | 2025-01-03 16:28 | PM.DS ---
DS: Providers Provider Date of Service: 01/03/25 Date of admission: 01/02/25 09:47 Date of discharge: 01/03/25 Primary care physician: Rupert Flores MD Consults: 01/02/25 07:10 ED Recovery Team Consult Stat Comment: Reason for consultation: ? detox 01/02/25 15:44 Addiction Medicine Routine Consulting Provider: Addiction Covering Reason for consultation: alcohol DS: Diagnosis Discharge Diagnosis (1) Alcohol use disorder, severe, dependence: Status: Acute DS: Summary Hospital Course Hospital Course: HPI The patient is a 34 year old F with a PMH of epilepsy and alcohol use disorder with prior withdrawal seizures who presents to the ED with reported witnessed seizure at home. Per ED reports, the patient had a 2 minute seizure that was witnessed by the mother at home. The patient is seen and examined in the ED around 930am. She is currently awake and alert. She states that she has a history of epilepsy and is on Keppra, but has not taken it for the last several days due to binge drinking and subsequent nausea/vomiting. She states that on the day prior to admission, she drank about 2-3 drinks (normally she drinks 10+). However, her EtOh is >400 on arrival. She reports headache and throat/epigastric burning. ED course: Labs CBC - essentially within normal limits Chem - Bicarb 21, Gap 29, Lactate initiall 9.8 improved to 6.3, EtOh 443, Mag 1.5, K 2.8, AST 36, ALT 14, Lipase 11 Imaging - CXR negative; CT head - not acute findings Treatment - Multiple L of IVF, multiple rounds of IV antiemetics, IV K and Mag; Pts chemistries have improved but she is not tachycardic and is starting to show signs of withdrawal --> phenobarb initiated Pt will now be admitted for further work up and treatment. Hospital Course: Patient was started on phenobarbital per protocol for alcohol withdrawal. For her seizures, she was given IV Keppra which was transitioned to oral Keppra. She should continue her baseline dose of this as prescribed. In regards to her electrolyte abnormalities, these were monitored closely and potassium as well as magnesium was replaced as needed. Patient was seen in consultation by addiction Medicine. Patient reported that she is on naltrexone at home which she will continue. She has been given [facility]. Plan was to continued hospitalization for an additional 24 hours to ensure stability, however patient is requesting discharge. Given that she is tolerating solids, her electrolytes have improved and her withdrawal symptoms are minimal, the patient will be discharged home with outpatient follow up. Final discharge diagnoses 1. Seizures, likely tonic-clonic due to medication noncompliance 2. Alcohol use disorder and alcohol withdrawal 3. Hypokalemia 4. Hypomagnesemia 5. Hyponatremia 6. Lactic acidosis 8. Alcoholic gastritis Time Attestation Discharge Coordination Time (in mins): 35 Quality: Safe Use of Opioids Does Pt have an Active Cancer Diagnosis on the Problem List?: No Quality: Stroke Does the patient have a stroke diagnosis?: No Physical Exam Vital Signs: Vital Signs: Last Vital Signs Temp 97.0 F 01/03/25 15:34 Pulse 94 01/03/25 15:34 Resp 20 01/03/25 15:34 BP 127/84 01/03/25 15:34 Pulse Ox 98 01/03/25 15:34 O2 Del Method Room Air 01/03/25 15:34 BMI result Body Mass Index 19.8 DS: Data Data Completed and Pending Completed studies during hospitalization [Text1]: Procedures Detoxification Services for Substance Abuse Treatment (12/10/24) Insertion of Endotracheal Airway into Trachea, Via Natural or Artificial Opening (06/18/24) Insertion of Infusion Device into Superior Vena Cava, Percutaneous Approach (06/18/24) Respiratory Ventilation, 24-96 Consecutive Hours (06/18/24) Ultrasonography of Superior Vena Cava, Guidance (06/18/24) Labs on day of discharge: Laboratory Results - last 24 hr 01/02/25 01/03/25 01/03/25 16:16 06:21 14:32 WBC 5.8 RBC 4.26 Hgb 11.6 L Hct 34.0 L MCV 79.8 L MCH 27.2 MCHC 34.1 RDW 15.0 Plt Count 134 L D MPV 10.0 Absolute Nucleated RBC 0.000 Nucleated RBC % (auto) 0.0 Sodium 130 L Potassium 2.7 L* D 3.4 D Chloride 96 Carbon Dioxide 26 Anion Gap 11 L BUN < 3 L Creatinine 0.52 Estim Creat Clear Calc 130.1 Estimated GFR > 60 Random Glucose 90 Lactic Acid F/U @ 4Hr 2.9 H* Calcium 8.4 D Magnesium 1.3 L* 2.8 H Total Bilirubin 1.1 H AST 40 H ALT 15 Alkaline Phosphatase 153 H Total Protein 6.7 Albumin 3.3 L Discharge Plan Discharge Anticipated Discharge Date/Time: 01/03/25 16:25 Patient Disposition: Home, Self-Care Discharge Diagnosis: Seizures, alcohol withdrawal Referrals: Rupert Flores MD [Primary Care Provider] - 1 Week Discharge Medications: Continued multivitamin [Daily-Laura] Tablet 1 tab PO DAILY Qty: 30 0RF folic acid 1 mg Tablet 1 mg PO DAILY Qty: 30 0RF sucralfate 1 gram tablet 1 g PO QID omeprazole 20 mg capsule,delayed release(DR/EC) 20 mg PO DAILY@0630 quetiapine 50 mg tablet 50 mg PO BEDTIME sertraline 100 mg tablet 100 mg PO DAILY hydroxyzine HCl 25 mg tablet 50 mg PO DAILY magnesium oxide 400 mg (241.3 mg magnesium) tablet 400 mg PO DAILY topiramate 25 mg tablet 25 mg PO BEDTIME Qty: 30 0RF levetiracetam 750 mg tablet 750 mg PO BID Qty: 60 0RF Discharge Orders: Discharge Order (Routine); Ordered 01/03/25 Ordered By: Lucio Bonilla Diet: Advance to usual diet Activity on Discharge: As tolerated Stand Alone Forms: Patient Portal Discharge page Print Language: Ghanaian Care Plan Goals: Do not drink alcohol [facility] Take your seizure medications Health Concerns: see d/c summary Plan of Treatment: see d/c summary Assessment: see d/c summary
== END 2025-01-03 17:06 | disposition home or self-care (01) | DRG 53 ==
LOC: HO.ED 01-02 07:13 → HO.EDOVER 01-02 09:54 → HO.IMC 01-02 14:09
PROVIDERS: Emergency Medicine Emergency Medical Services; Admitting Provider Family Medicine; Emergency Provider Emergency Medicine; PCP Family Medicine; Visit Provider Family Medicine
DX: G40.409 Other generalized epilepsy and epileptic syndromes, not intractable, without status epilepticus (principal); E87.29 Other acidosis; E83.42 Hypomagnesemia; E86.0 Dehydration; E87.6 Hypokalemia; F10.239 Alcohol dependence with withdrawal, unspecified; Y90.8 Blood alcohol level of 240 mg/100 ml or more; F10.229 Alcohol dependence with intoxication, unspecified; T42.6X6A Underdosing of other antiepileptic and sedative-hypnotic drugs, initial encounter; K29.20 Alcoholic gastritis without bleeding; Z20.822 Contact with and (suspected) exposure to COVID-19; Z79.899 Other long term (current) drug therapy
CPT/HCPCS: 0241U; 36415; 70450; 71045; 80048; 80053; 80307; 81001; 82248; 83605; 83690; 83735; 84132; 84484; 85025; 85027; 93005; 99285; J1200; J1630; J1885; J1953; J2060; J2405; J2560; J2765; J3475; J3480; J7120

== ENCOUNTER → 2025-01-01 21:42 | Outpatient (BNV) | payer OTHER, SELFPAY | PROVIDERS: Admitting Provider Family Medicine; Emergency Provider Emergency Medicine; Visit Provider Internal Medicine Cardiovascular Disease | DX: R00.0 Tachycardia, unspecified (principal); R94.31 Abnormal electrocardiogram [ECG] [EKG]; R56.9 Unspecified convulsions | CPT/HCPCS: 93010 ==

== ENCOUNTER → 2025-01-01 21:53 | Outpatient (BNV) | payer OTHER, SELFPAY | PROVIDERS: Emergency Provider Emergency Medicine Emergency Medical Services; Visit Provider Radiology Neuroradiology | DX: R05.9 Cough, unspecified (principal); R50.9 Fever, unspecified | CPT/HCPCS: 70450; 71045 ==

== ENCOUNTER → 2025-01-02 09:47 | Outpatient (BNV) | payer OTHER, SELFPAY | PROVIDERS: Admitting Provider Family Medicine; Emergency Provider Emergency Medicine; PCP Family Medicine; Visit Provider Nurse Practitioner Psychiatric/Mental Health | DX: F10.20 Alcohol dependence, uncomplicated (principal) | CPT/HCPCS: 99232 ==

== ENCOUNTER → 2025-01-02 09:47 | Outpatient (BNV) | payer OTHER, SELFPAY | PROVIDERS: Admitting Provider Family Medicine; Emergency Provider Emergency Medicine; Visit Provider Family Medicine | DX: R56.9 Unspecified convulsions (principal); E87.6 Hypokalemia; F10.20 Alcohol dependence, uncomplicated; E87.21 Acute metabolic acidosis | CPT/HCPCS: 99222; 99239; 99499 ==

== ENCOUNTER 2025-01-22 20:04 | Emergency (ER) | payer OTHER, SELFPAY ==
[2025-01-22 20:05] VITALS: BP 141/101; PULSE 101; RESP 22; TEMP 37.2; O2SAT 97
--- NOTE | 2025-01-22 20:09 | ED.GENADULT ---
HPI - General Adult General Chief complaint: Seizure Stated complaint: vomiting hx seizure Related Data Home Medications ?Medication ?Instructions ?Recorded ?Confirmed omeprazole 20 mg capsule,delayed 20 mg PO DAILY@0630 06/19/24 01/02/25 release sucralfate 1 gram tablet 1 g PO QID 06/19/24 01/02/25 hydroxyzine HCl 25 mg tablet 50 mg PO DAILY Anxiety 08/29/24 01/02/25 magnesium oxide 400 mg (241.3 mg 400 mg PO DAILY 08/29/24 01/02/25 magnesium) tablet sertraline 100 mg tablet 100 mg PO DAILY 08/29/24 01/02/25 quetiapine 50 mg tablet 50 mg PO BEDTIME insomnia 09/16/24 01/02/25 Previous Rx's ?Medication ?Instructions ?Recorded folic acid 1 mg tablet 1 mg PO DAILY #30 tabs 05/24/23 multivitamin (Daily-Laura tablet) 1 tab PO DAILY #30 tabs 05/24/23 levetiracetam 750 mg tablet 750 mg PO BID #60 tabs 01/03/25 topiramate 25 mg tablet 25 mg PO BEDTIME #30 tabs 01/03/25 Allergies Allergy/AdvReac Type Severity Reaction Status Date / Time Iodinated Contrast Media AdvReac Hives Verified 01/22/25 20:11 [Contrast Dye] [facility] Past Medical History Medical History (Updated 01/23/25 @ 17:59 by RAFAEL Chopra) Seizure Acute dehydration Acute hypokalemia Hypomagnesemia Acute alcohol intoxication Alcohol use disorder, severe, dependence Acute respiratory failure Acute hypokalemia Acute hyponatremia Alcohol withdrawal Status epilepticus Withdrawal seizures Depression Alcoholism Social History Social History Household Members: Family Household Members Other:: bf, mom Housing: House 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) Unable to assess alcohol history related to: Unable to respond Alcohol intake: current Alcohol intake frequency: 0-2 drinks per day Alcohol type: hard liquor Comment: pt refused bed alarm Patient Tobacco Use Status: Never used Tobacco e-Cigarette/Vaping Use: Currently Using Substance Use Type: Crack/Cocaine Advance Directives: No Advance Directives Information Provided: Yes service: No Physical Exam ED Vital Signs: Vital Signs - 24 hr 01/22/25 20:05 Temperature 98.9 F Pulse Rate 101 H Respiratory Rate 22 H Blood Pressure 141/101 H Pulse Oximetry 97 Oxygen Delivery Method Room Air BMI result Body Mass Index 20.0 Course Course Course Narrative: This is a rapid medical exam performed by Suzanna Rodarte PA-C. Patient is a 34-year-old female with alcohol use disorder, seizure disorder on Keppra who presents with the acute nausea vomiting. Patient was here with her who admits she was drinking yesterday, her acute onset nausea vomiting began today. On exam the patient is dry heaving, she is tearful, rolled up in a ball in a wheelchair. We will be screening basic labs, a drug screen and a serum ethanol, adding on a Keppra level. Unclear if this is alcohol withdrawal. Her states that she has been taking her medications as directed, there have been no medication changes. She is stable and can return to the waiting room pending her full medical assessment. Medications Administered Discontinued Medications Generic Name Dose Route Start Last Admin Trade Name Hermann PRN Reason Stop Dose Admin Ondansetron HCl 8 mg 01/22/25 20:43 01/22/25 20:47 Ondansetron Odt 8 Mg Tab.Rapdis TRANSLINGU 01/22/25 20:44 8 mg ONCE ONE Administration Discharge Plan Discharge Clinical Impression: Abdominal pain Patient Disposition: Left W/O Completing Treatment Prescriptions: No Action multivitamin [Daily-Laura] Tablet 1 tab PO DAILY Qty: 30 0RF folic acid 1 mg Tablet 1 mg PO DAILY Qty: 30 0RF sucralfate 1 gram tablet 1 g PO QID omeprazole 20 mg capsule,delayed release(DR/EC) 20 mg PO DAILY@0630 quetiapine 50 mg tablet 50 mg PO BEDTIME sertraline 100 mg tablet 100 mg PO DAILY hydroxyzine HCl 25 mg tablet 50 mg PO DAILY magnesium oxide 400 mg (241.3 mg magnesium) tablet 400 mg PO DAILY topiramate 25 mg tablet 25 mg PO BEDTIME Qty: 30 0RF levetiracetam 750 mg tablet 750 mg PO BID Qty: 60 0RF Discharge Date/Time: 01/22/25 21:00
--- NOTE | 2025-01-22 20:42 | MHC.EDTECH ---
pt is uncooperative with lab draws. pt refuses to situp and allow this tech to draw labs.
[2025-01-22] MEDS: Ondansetron ODT 8 MG TAB.RAPDIS TRANSLINGU (20:47)
== END 2025-01-22 21:00 | disposition left against medical advice (07) ==
PROVIDERS: Emergency Provider Emergency Medicine
DX: R10.2 Pelvic and perineal pain (principal); R56.9 Unspecified convulsions; R11.2 Nausea with vomiting, unspecified; Z79.899 Other long term (current) drug therapy
CPT/HCPCS: 99281; 99283

== ENCOUNTER 2025-01-24 11:00 | Inpatient (IN) | payer OTHER, SELFPAY ==
[2025-01-24] VITALS (7 sets, daily range): BP systolic 126–158; BP diastolic 75–95; PULSE 118–137; RESP 20–24; TEMP 37.1–37.6; O2SAT 96–100; BMI 19.2; BMI 20.3
--- NOTE | 2025-01-24 11:04 | ECG_ITS ---
Test Reason : SEIZURE Blood Pressure : */* mmHG Vent. Rate : 127 BPM Atrial Rate : 127 BPM P-R Int : 118 ms QRS Dur : 80 ms QT Int : 326 ms P-R-T Axes : 70 86 51 degrees QTcB Int : 473 ms Sinus tachycardia Otherwise normal ECG When compared with ECG of 01-Jan-2025 21:42, Non-specific change in ST segment in Anterior leads Referred By: Citlalli Knight Electronically Signed By: CHING MCCARTHY MD
[2025-01-24] MEDS: LORazepam 2 MG/ML VIAL IM (11:10)
[2025-01-24] MEDS: LORazepam 2 MG/ML VIAL IVPUSH (11:13)
[2025-01-24 11:26] LABS: Basophils Percent Auto 0.2 % (0-2); Hematocrit 37.9 % (37.0-47.0); Hemoglobin 13.5 g/dl (12.0-16.0); Imm Gran Pct Auto 0.5 % (0.0-0.4); Lymphocytes Absolute Auto 1.3 X10*3/uL (1.2-4.9); Lymphocytes Percent Auto 6.8 % (20-40); Mean Corpuscular HGB Conc 35.6 g/dl (31.0-35.0); Mean Corpuscular Hemoglobin 28.2 pg (27.0-33.0); Mean Corpuscular Volume 79.1 fL (80.0-98.0); Mean Platelet Volume 8.9 fL (9.4-12.3); Monocytes Absolute Auto 1.9 X10*3/uL (0.1-1.2); Monocytes Percent Auto 9.9 % (2-11); Neutrophils Absolute Auto 16.1 x10*3/uL (2.0-8.3); Neutrophils Percent Auto 82.6 % (45-73); Platelet Count 379 X10*3/uL (160-400); Red Blood Count 4.79 X10*6/uL (4.20-5.50); Red Cell Distribution Width 15.9 % (11.0-16.0); White Blood Count 19.4 X10*3/uL (4.8-10.8)
[2025-01-24 11:27] LABS: MANUAL DIFF FLAG SCAN; SCAN SMEAR FLAG 1
--- NOTE | 2025-01-24 11:32 | ED.SEIZURE ---
HPI - Seizure General Chief Complaint: Seizure Stated Complaint: witnessed sz, rx keppra, currently postictal Time Seen by Provider: 01/24/25 11:09 Source: family, EMS and old records reviewed Mode of arrival: ambulatory Limitations: other (postictal) History of Present Illness ED Provider: YAMILKA HPI Narrative: 34 yo female with PMH of ETOH withdrawal, hypomagnesemia, seizures disorder on keppra who present with 2 seizures at home witnessed by about 15 seconds each she did recovery in between. She had not been taking her keppra from last Wednesday to Wednesday but did resume. She did drink with friends on Wednesday night. No head trauma during seizures. She had another 30 second GTC seizure on arrival to ED room - given ativan on arrival. She has no signs of trauma. She was agitated afterwards. MD complaint: seizure Onset (ago): hour(s) (1) Description of Episode: loss of consciousness and tonic-clonic movement Duration of episode: 10 -: second(s) Witnessed: Yes - by Bystander Trauma: No Seizure History: Yes Place: Home Possible Precipitating Event: alcohol withdrawal and medication Associated symptoms: denies other symptoms Treatments prior to arrival: none Related Data Home Medications ?Medication ?Instructions ?Recorded ?Confirmed omeprazole 20 mg capsule,delayed 20 mg PO DAILY@0630 06/19/24 01/02/25 release sucralfate 1 gram tablet 1 g PO QID 06/19/24 01/02/25 hydroxyzine HCl 25 mg tablet 50 mg PO DAILY Anxiety 08/29/24 01/02/25 magnesium oxide 400 mg (241.3 mg 400 mg PO DAILY 08/29/24 01/02/25 magnesium) tablet sertraline 100 mg tablet 100 mg PO DAILY 08/29/24 01/02/25 quetiapine 50 mg tablet 50 mg PO BEDTIME insomnia 09/16/24 01/02/25 Previous Rx's ?Medication ?Instructions ?Recorded folic acid 1 mg tablet 1 mg PO DAILY #30 tabs 05/24/23 multivitamin (Daily-Laura tablet) 1 tab PO DAILY #30 tabs 05/24/23 levetiracetam 750 mg tablet 750 mg PO BID #60 tabs 01/03/25 topiramate 25 mg tablet 25 mg PO BEDTIME #30 tabs 01/03/25 Allergies Allergy/AdvReac Type Severity Reaction Status Date / Time Iodinated Contrast Media AdvReac Hives Verified 01/24/25 11:24 [Contrast Dye] Review of Systems Review of Systems: ROS unable to be obtained due to postictal state [facility] Past Medical History Attestation statement: The following information was validated with the patient. 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) Unable to assess alcohol history related to: Unable to respond Alcohol intake: current Alcohol intake frequency: a few times a week Alcohol type: hard liquor Comment: pt refused bed alarm Patient Tobacco Use Status: Never used Tobacco Smoked in Last 30 Days: No e-Cigarette/Vaping Use: Currently Using Use of substances other than those prescribed or required for medical reasons: No Substance Use Type: Crack/Cocaine Advance Directives: No Advance Directives Information Provided: No Do you have a plan to hurt others: No Plan Patient : No service: No Physical Exam Vital Signs: Vital Signs: Last Vital Signs Temp 98.8 F 01/24/25 16:00 Pulse 120 H 01/24/25 16:00 Resp 20 01/24/25 16:00 BP 126/75 01/24/25 16:00 Pulse Ox 100 01/24/25 16:00 O2 Del Method Oxymask 01/24/25 16:00 O2 Flow Rate 4 01/24/25 16:00 Oxygen Flow Rate 15 01/24/25 11:21 BMI result Body Mass Index 19.2 Appearance: Active seizure on arrival 30 seconds GTC moderate acute distress. Eyes: Pupils equal, round and reactive to light. ENT: Pharynx clenched, clear saliva present Neck: Normal inspection. Neck supple. CVS: tachycardic heart rate and rhythm. Pulses normal. Respiratory: No respiratory distress. Breath sounds normal. Abdomen: Soft and nontender. Skin: Skin warm and dry. Normal skin color. Normal skin turgor. Extremities: No lower extremity edema. No calf ttp Neuro: seizure then postictal with agitation afterwards Course Course Course Narrative: still agitated she is tachycardic at this time suspect combination of seizures from her epilepsy vs ETOH withdrawal she has barbituarate in her system but not on medications at home phenobarb protocol ordered Reevaluation(s) Reevaluation #1: retaining urine carroll ordered Medications Administered Generic Name Dose Route Start Last Admin Trade Name Freq PRN Reason Stop Dose Admin Sodium Chloride 1,000 mls @ 50 mls/hr 01/24/25 14:45 01/24/25 15:15 Ns IVCONT 50 mls/hr .Q20H ARTURO Administration Thiamine HCl 100 mg/ Sodium 101 mls @ 202 mls/hr 01/24/25 14:50 01/24/25 15:25 Chloride IV 202 mls/hr DAILY ARTUOR Administration Discontinued Medications Generic Name Dose Route Start Last Admin Trade Name Freq PRN Reason Stop Dose Admin Lactated Ringer's 1,000 mls @ 999 mls/hr 01/24/25 11:04 01/24/25 12:44 Lr IV 01/24/25 12:04 Infused .Q1H1M ONE Infusion Levetiracetam 1,000 mg in 100 mls @ 400 mls/hr 01/24/25 11:04 01/24/25 11:53 Keppra IV 01/24/25 11:18 Infused ONCE ONE Infusion Magnesium Sulfate 2 gm in 50 mls @ 25 mls/hr 01/24/25 11:46 01/24/25 14:26 Magnesium Sulfate/H2o IV 01/24/25 13:45 Infused ONCE ONE Infusion Potassium Chloride 10 meq in 100 mls @ 100 mls/hr 01/24/25 12:00 01/24/25 15:25 Potassium Chloride/H20 IV 01/24/25 15:59 100 mls/hr Q1H ARTURO Administration Lactated Ringer's 1,000 mls @ 999 mls/hr 01/24/25 12:50 01/24/25 14:26 Lr IV 01/24/25 13:50 Infused .Q1H1M ONE Infusion Lorazepam 2 mg 01/24/25 11:04 01/24/25 11:13 Lorazepam 2 Mg/Ml Vial IVPUSH 01/24/25 11:05 2 mg ONCE ONE Administration Lorazepam 2 mg 01/24/25 11:19 01/24/25 11:10 Lorazepam 2 Mg/Ml Vial IM 01/24/25 11:20 2 mg STAT STA Administration Lorazepam 1 mg 01/24/25 12:36 01/24/25 12:40 Lorazepam 2 Mg/Ml Vial IVPUSH 01/24/25 12:37 1 mg STAT STA Administration Phenobarbital Sodium 237 mg 01/24/25 14:00 01/24/25 14:17 Phenobarbital Sodium 130 Mg/Ml Im Once IM 01/24/25 14:01 237 mg ONCE ONE Administration Medical Decision Making Medical Decision Making MDM Narrative: 34 yo female with PMH of ETOH withdrawal, hypomagnesemia, seizures disorder on keppra who has missed her dose recently and drank ETOH at this time on arrival given 4mg ativan and start on lytes/magnesium/thiamine. She is loaded with IV keppra. No head trauma noted will hold off CT scan. Suspect ETOH use and med non compliance as cause of her seizure. She appears very dry on exam as well 2L of LR ordered Differential Diagnosis Differential Diagnoses: The differential diagnosis associated with the presentation includes ETOH, med non compliance, seizures, lyte abnormality Admission/Observation Consideration of admission/observation: Escalation of care including admission/observation considered Lab Data [facility] Lab Attestation statement: I reviewed the patient's lab results. low K - repleted AG due to suspect seizure and presumed acidosis will recheck after fluids 01/24/25 11:20 01/24/25 15:57 Labs: Lab Results 01/24/25 01/24/25 Range/Units 11:20 12:33 WBC 19.4 H (4.8-10.8) X10*3/uL RBC 4.79 (4.20-5.50) X10*6/uL Hgb 13.5 (12.0-16.0) g/dl Hct 37.9 (37.0-47.0) % MCV 79.1 L (80.0-98.0) fL MCH 28.2 (27.0-33.0) pg MCHC 35.6 H (31.0-35.0) g/dl RDW 15.9 (11.0-16.0) % Plt Count 379 D (160-400) X10*3/uL MPV 8.9 L (9.4-12.3) fL Immature Gran % (Auto) 0.5 H (0.0-0.4) % Neut % (Auto) 82.6 H (45-73) % Lymph % (Auto) 6.8 L (20-40) % Johnson % (Auto) 9.9 (2-11) % Eos % (Auto) 0.0 (0-4) % Baso % (Auto) 0.2 (0-2) % Lymph # (Auto) 1.3 (1.2-4.9) X10*3/uL Johnson # (Auto) 1.9 H (0.1-1.2) X10*3/uL Eos # (Auto) 0.0 (0.0-0.4) X10*3/uL Baso # (Auto) 0.0 (0.0-0.2) X10*3/uL Abs Immat Gran (auto) 0.10 H (0.00-0.03) X10*3/uL Absolute Neuts (auto) 16.1 H (2.0-8.3) x10*3/uL Absolute Nucleated RBC 0.000 (0.0-0.012) X10*3/uL Nucleated RBC % (auto) 0.0 (0.0-0.2) /100WBC Smear Tech's Comments VERIFIED Sodium 122 L (135-145) mmol/L Potassium 2.8 L* (3.3-5.1) mmol/L Chloride 70 L D (96-108) mmol/L Carbon Dioxide 21 L (22-29) mmol/L Anion Gap 34 H (12-20) BUN 20 H (9-16) mg/dL Creatinine 0.99 (0.5-1.4) mg/dL Estim Creat Clear Calc 68.3 Estimated GFR > 60 Random Glucose 165 H (60-115) mg/dL Calcium 8.5 (8.4-10.2) mg/dL Magnesium 1.8 (1.6-2.6) mg/dL Total Bilirubin 1.1 H (0.0-1.0) mg/dL Direct Bilirubin 0.5 (0.0-0.5) mg/dL AST 57 H (5-31) U/L ALT 35 H (0-31) U/L Alkaline Phosphatase 153 H (39-117) U/L Total Protein 7.7 (6.5-8.0) g/dL Albumin 4.0 (3.5-5.0) g/dL Lipase 8 (8-78) U/L Beta HCG, Quant < 2 mIU/mL Urine Opiates Screen Not Detected (Not Detect) Ur Buprenorphine Scrn Not Detected (Not Detect) ng/mL Ur Oxycodone Screen Not Detected (Not Detect) ng/mL Urine Methadone Screen Not Detected (Not Detect) ng/mL Urine Fentanyl Screen Not Detected (Not Detect) Ur Barbiturates Screen POSITIVE H (Not Detect) Ur Phencyclidine Scrn Not Detected (Not Detect) Ur Amphetamines Screen Not Detected (Not Detect) U Benzodiazepines Scrn Not Detected (Not Detect) Urine Cocaine Screen Not Detected (Not Detect) U Marijuana (THC) Screen Not Detected (Not Detect) Ethyl Alcohol < 10 mg/dL Independent Interpretation I performed an independent interpretation of an: EKG Interpretation: Rate: 127 Rhythm: sinus tach [place]: normal Normal P waves. Normal BILL. Normal QRS complex. ST T wave : nonspecific ST T wave changes qTC: 473 prior studies: no acute ischemia The study has been interpreted contemporaneously by me. . Independent Historian Clinical information obtained from an independent historian. History obtained from or confirmed by: Spouse and EMS External Record Review External record reviewed: Inpatient record and Outpatient record Critical Care Time Critical Care Time Critical Care Time: Yes Total Critical Care Time: 60 Attestation: IV potassium, IV ativan, IM phenobarb, family discussion, repeat assessments I attest to this time spent taking care of the patient Discharge Plan Discharge Clinical Impression: Epileptic seizure, Acute hypokalemia, Alcohol withdrawal, Acute urinary retention, Acute hyponatremia Patient Disposition: Admitted As Inpatient
[2025-01-24] MEDS: levETIRAcetam in NaCl (iso-os) 1,000 MG/100 ML PIGGYBACK 400 MG IV (11:34)
[2025-01-24] MEDS: Lactated Ringers 1,000 ML 999 ML IV ×2 (11:34→12:56)
--- NOTE | 2025-01-24 11:39 | PC.NURSE ---
arrived to bedside. Informed RN about pt's reasoning of coming to ER and previous hx.
[2025-01-24 11:47] LABS: SLIDE REVIEW VERIFIED
--- NOTE | 2025-01-24 11:52 | PC.NURSE ---
Attempted to straight cath pt. with assistance from GENESIS Dasilva. Was unsuccessful, will try again after IVF.
[2025-01-24 11:54] LABS: Alanine Aminotransferase 35 U/L (0-31); Alkaline Phosphatase 153 U/L (39-117); Anion Gap 34 (12-20); Aspartate Amino Transferase 57 U/L (5-31); Bilirubin Direct 0.5 mg/dL (0.0-0.5); Bilirubin Total 1.1 mg/dL (0.0-1.0); Blood Urea Nitrogen 20 mg/dL (9-16); Calcium 8.5 mg/dL (8.4-10.2); Carbon Dioxide 21 mmol/L (22-29); Chloride 70 mmol/L (96-108); Creatinine Clr Calc Pharmacy 68.3; Estimated Glomerular Filt Rate > 60; Ethanol < 10 mg/dL; Glucose Random 165 mg/dL (60-115); HCG Quantitative < 2 mIU/mL; Lipase 8 U/L (8-78); Magnesium 1.8 mg/dL (1.6-2.6); Potassium 2.8 mmol/L (3.3-5.1); Sodium 122 mmol/L (135-145); Total Protein 7.7 g/dL (6.5-8.0)
[2025-01-24] MEDS: Magnesium Sulfate/H2O 2 GM/50 ML PIGGYBACK IV (11:58)
--- NOTE | 2025-01-24 12:26 | PC.NURSE ---
Per Pharm jose raul Marcus to giv Mag and K+ together.
[2025-01-24] MEDS: Potassium Chloride/H20 10 MEQ/100 ML PIGGYBACK 100 MEQ IV ×4 (12:29→15:25)
[2025-01-24] MEDS: LORazepam 2 MG/ML VIAL 1 MG IVPUSH (12:40)
[2025-01-24 12:52] LABS: Amphetamine Screen Urine Not Detected (Not Detect); Barbiturates, Urine POSITIVE (Not Detect); Benzodiazepines Screen Urine Not Detected (Not Detect); Buprenorphine Scr Not Detected (Not Detect); Cannabinoid Screen Urine Not Detected (Not Detect); Cocaine Screen Urine Not Detected (Not Detect); Fentanyl, urine Not Detected (Not Detect); Methadone Screen, Urine Not Detected (Not Detect); Opiate Screen Urine Not Detected (Not Detect); Oxycodone Screen Urine Not Detected (Not Detect); Phencyclidine Screen Urine Not Detected (Not Detect)
--- NOTE | 2025-01-24 13:35 | PC.NURSE ---
Pt. continuing to try and get out of bed, pt. is placed on a bed vang, will attempt carroll after pt. is relaxed with medication previously given.
[2025-01-24] MEDS: PHENobarbitaL sodium 130 MG/ML IM ONCE 237 MG IM (14:17)
--- NOTE | 2025-01-24 14:48 | P.HPHOSP_ITS ---
History of Present Illness Date of Service: 01/24/25 Chief Complaint: generalized seizure Patient was given lorazepam after a generalized seizure and is currently unable to give history due to sedation. History per review of [facility] and discussion with ED physician Dr Knight. 34yo F with AUD with hx of withdrawal seizure and epilepsy currently on levetiracetam + topiramate who was last admitted here 01/02-01/03/25 for generalized seizure attributed to noncompliance with levetiracetam. She presents after two 15-second seizures witnessed by her at home with complete recovery in between. Last EtOH intake 5 days prior to presentation. Reportedly did not take levetiracetam for 4 days last week. Upon arrival in the ED, she had a witnessed 30-second generalized seizure with relatively quick recovery of mental status, but then became agitated afterwards. She was given total of 3 mg of IM and 2 mg of IV lorazepam and loaded with phenobarbital and levetiracetam as well. She was also given 2L of IV LR. Noted to have low potassium of 2.8; magnesium was 1.8. Also with hyponatremia/hypochloremia with Na of 122 and Cl of 70. Bicarbonate 21, anion gap 34. Urine toxicology positive for barbiturates but she was treated with phenobarbital on her last admission. 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) Unable to assess alcohol history related to: Unable to respond Alcohol intake: current Alcohol intake frequency: a few times a week Alcohol type: hard liquor Comment: pt refused bed alarm Patient Tobacco Use Status: Never used Tobacco Smoked in Last 30 Days: No e-Cigarette/Vaping Use: Currently Using Use of substances other than those prescribed or required for medical reasons: No Substance Use Type: Crack/Cocaine Advance Directives: No Advance Directives Information Provided: No Do you have a plan to hurt others: No Plan Patient : No service: No Meds Allergies Allergy/AdvReac Type Severity Reaction Status Date / Time Iodinated Contrast Media AdvReac Hives Verified 01/24/25 11:24 [Contrast Dye] Active Medications: Current Medications Acetaminophen (Acetaminophen 325 Mg Tablet) 650 mg PO Q6H PRN PRN Reason: Pain, Mild 1-3,fever,headache Calcium Carbonate (Calcium Carbonate 750 Mg Tab.Chew) 750 mg PO Q4H PRN PRN Reason: Heartburn Enoxaparin Sodium (Enoxaparin Sodium 40 Mg/0.4 Ml Syringe) 40 mg SUBCUT Q24H ARTURO Potassium Chloride (Potassium Chloride/H20) 10 meq in 100 mls @ 100 mls/hr IV Q1H [facility] Stop: 01/24/25 15:59 Last Admin: 01/24/25 14:18 Dose: 100 mls/hr Sodium Chloride (Ns) 1,000 mls @ 50 mls/hr IVCONT .Q20H ARTURO Levetiracetam 750 mg/ Sodium (Chloride) 107.5 mls @ 430 mls/hr IV Q12H ARTURO Magnesium Hydroxide (Milk Of Magnesia 30 Ml Oral.Susp) 30 ml PO DAILY PRN PRN Reason: Constipation Melatonin (Melatonin 3 Mg Tablet) 6 mg PO BEDTIME PRN PRN Reason: Insomnia Ondansetron HCl (Ondansetron Hcl 4 Mg/2 Ml Vial) 4 mg IVPUSH Q8H PRN PRN Reason: Nausea and Vomiting Pharmacy Consult (Consult Rx Etoh Phenob Im/Po) 1 each MISCELLANE ONCE PRN; Protocol PRN Reason: Consult order Phenobarbital (Phenobarbital 15 Mg Tablet) 45 mg PO BID [facility] Stop: 01/26/25 21:01 Phenobarbital (Phenobarbital 30 Mg Tablet) 30 mg PO BID [facility] Stop: 01/28/25 21:01 Phenobarbital (Phenobarbital 15 Mg Tablet) 15 mg PO DAILY [facility] Stop: 01/30/25 09:01 Phenobarbital Sodium (Phenobarbital Sodium 130 Mg/Ml Vial Im Q3hx2) 178 mg IM Q3H [facility] Stop: 01/24/25 20:01 Sodium Chloride (0.9 % Sodium Chloride Flush 3 Ml Syringe) 3 ml IVFLUSH QSHIFT ARTURO Topiramate (Topiramate 25 Mg Tablet) 25 mg PO BEDTIME ARTURO Home Medications ?Medication ?Instructions ?Recorded ?Confirmed ?Last Taken ?Type omeprazole 20 mg capsule,delayed 20 mg PO DAILY@0630 06/19/24 01/02/25 12/08/24 History release sucralfate 1 gram tablet 1 g PO QID 06/19/24 01/02/25 12/08/24 History hydroxyzine HCl 25 mg tablet 50 mg PO DAILY Anxiety 08/29/24 01/02/25 Unknown History magnesium oxide 400 mg (241.3 mg 400 mg PO DAILY 08/29/24 01/02/25 12/08/24 History magnesium) tablet sertraline 100 mg tablet 100 mg PO DAILY 08/29/24 01/02/25 12/08/24 History quetiapine 50 mg tablet 50 mg PO BEDTIME insomnia 09/16/24 01/02/25 Unknown History Physical Exam 2 Vital Signs and Narrative: Vital Signs: Last Vital Signs Temp 98.7 F 01/24/25 14:25 Pulse 130 H 01/24/25 14:00 Resp 20 01/24/25 14:00 BP 134/84 01/24/25 14:00 Pulse Ox 99 01/24/25 14:00 O2 Del Method Oxymask 01/24/25 14:00 O2 Flow Rate 4 01/24/25 14:00 Oxygen Flow Rate 15 01/24/25 11:21 BMI result Body Mass Index 19.2 Gen: somnolent, minimally verbal HEENT: sclera anicteric, moist mucus membranes Neck: supple Lungs: clear to auscultation bilaterally Heart: regular, tachycardic, no murmurs Abd: soft, non-tender, non-distended Ext: no edema Skin: warm/well-perfused Neuro: somnolent, unable to assess orientation or strength Psych: impaired insight Results Labs 01/24/25 11:20 01/24/25 11:20 Labs: Laboratory Results - last 24 hr 01/24/25 01/24/25 11:20 12:33 MCV 79.1 L MCH 28.2 MCHC 35.6 H RDW 15.9 Plt Count 379 D MPV 8.9 L Immature Gran % (Auto) 0.5 H Neut % (Auto) 82.6 H Lymph % (Auto) 6.8 L Sebastian % (Auto) 9.9 Eos % (Auto) 0.0 Baso % (Auto) 0.2 Lymph # (Auto) 1.3 Sebastian # (Auto) 1.9 H Eos # (Auto) 0.0 Baso # (Auto) 0.0 Abs Immat Gran (auto) 0.10 H Absolute Neuts (auto) 16.1 H Absolute Nucleated RBC 0.000 Nucleated RBC % (auto) 0.0 Smear Tech's Comments VERIFIED Anion Gap 34 H Estim Creat Clear Calc 68.3 Estimated GFR > 60 Random Glucose 165 H Calcium 8.5 Magnesium 1.8 Total Bilirubin 1.1 H Direct Bilirubin 0.5 AST 57 H ALT 35 H Alkaline Phosphatase 153 H Total Protein 7.7 Albumin 4.0 Lipase 8 Beta HCG, Quant < 2 Urine Opiates Screen Not Detected Ur Buprenorphine Scrn Not Detected Ur Oxycodone Screen Not Detected Urine Methadone Screen Not Detected Urine Fentanyl Screen Not Detected Ur Barbiturates Screen POSITIVE H Ur Phencyclidine Scrn Not Detected Ur Amphetamines Screen Not Detected U Benzodiazepines Scrn Not Detected Urine Cocaine Screen Not Detected U Marijuana (THC) Screen Not Detected Ethyl Alcohol < 10 Assessment and Plan (1) Epileptic seizure: Status: Acute Plan 34yo F with AUD with hx of withdrawal seizure and epilepsy currently on levetiracetam + topiramate presenting with several generalized seizures after noncompliance with levetiracetam. Also found to have hyponatremia + hypokalemia generalized seizure - likely due to medication noncompliance but also could be from alcohol withdrawal + hypoNa. admit to telemetry, give IV levetiracetam, continue PO topiramate when more awake. seizure precautions. continue phenobarbital taper hypoNa/hypochloremia - appears hypovolemic; will replete NS gradually 50 mL/hr with q4h sodium checks with goal Na of no more than 132 in 24hr hypokalemia - ED ordered 40 mEq IV KCl after which we will check level AUD with hx withdrawal seizure - phenobarbital taper, thiamine + folate, Addiction Medicine consultation mood disorder - continue quetiapine + sertraline + hydroxzine when taking POs VTE ppx - enoxaparin dispo - eventual home code status - full I anticipate that the patient will stay at least 2 midnights as an inpatient in the hospital due to the above reasons. It is neither reasonable nor safe to care for them in a less acute setting. Quality Stroke Does the patient have a stroke diagnosis?: No VTE Prior VTE?: No VTE Risk Level:: Medical - moderate - high VTE Device Contraindication: N/A - Device Ordered VTE Drug Contraindication: N/A - Med Ordered
[2025-01-24] MEDS: 0.9 % Sodium Chloride 1,000 ML 50 ML IVCONT (15:15)
[2025-01-24] MEDS: Thiamine HCL 100 MG in 0.9 % Sodium Chloride 100 ML 202 MG IV (15:25)
[2025-01-24 16:10] LABS: Sodium 129 mmol/L (135-145)
[2025-01-24 16:15] LABS: Anion Gap 14 (12-20); Blood Urea Nitrogen 11 mg/dL (9-16); Calcium 7.9 mg/dL (8.4-10.2); Carbon Dioxide 32 mmol/L (22-29); Chloride 86 mmol/L (96-108); Estimated Glomerular Filt Rate > 60; Glucose Random 116 mg/dL (60-115); Potassium 3.2 mmol/L (3.3-5.1); Sodium 129 mmol/L (135-145)
[2025-01-24] MEDS: Dextrose 5 % 1,000 ML 75 ML IVCONT (16:46)
[2025-01-24] MEDS: Enoxaparin Sodium 40 MG/0.4 ML SYRINGE SUBCUT (16:47)
--- NOTE | 2025-01-24 17:02 | PHA.MEDREC ---
Addendum entered by Lazaro Thomas, [facility] 01/24/25 17:15: med rec reviewed Original Note: Pharmacy Consult ? Medication Reconciliation Pharmacy has completed the medication reconciliation. Spoke with patients spouse (Damien). He brought in her discharge papers from previous visit and we went over the medications. He pointed out that he has not seen her take 3 medications recently - omeprazole, topiramate, and multivitamin (but has at home). Took off of med list and provider is aware. He said all of the rest are the same. He said she took her morning medications today.
[2025-01-24] MEDS: levETIRAcetam 750 MG in 0.9 % Sodium Chloride 100 ML 430 MG IV (18:41)
[2025-01-24] MEDS: PHENobarbitaL sodium 130 MG/ML VIAL IM Q3Hx2 178 MG IM (20:26)
[2025-01-24] MEDS: Topiramate 25 MG TABLET PO (20:30)
[2025-01-24] MEDS: Acetaminophen 325 MG TABLET 650 MG PO (20:31)
[2025-01-24] MEDS: 0.9 % Sodium Chloride Flush 3 ML SYRINGE IVFLUSH (20:33)
[2025-01-24 23:35] LABS: Sodium 128 mmol/L (135-145)
[2025-01-25] VITALS (7 sets, daily range): BP systolic 110–142; BP diastolic 59–81; PULSE 94–117; RESP 12–20; TEMP 36–37.1; O2SAT 96–100
[2025-01-25 03:11] LABS: Sodium 129 mmol/L (135-145)
[2025-01-25 06:30] LABS: Hematocrit 34.4 % (37.0-47.0); Hemoglobin 12.1 g/dl (12.0-16.0); Mean Corpuscular HGB Conc 35.2 g/dl (31.0-35.0); Mean Corpuscular Hemoglobin 28.3 pg (27.0-33.0); Mean Corpuscular Volume 80.6 fL (80.0-98.0); Mean Platelet Volume 9.3 fL (9.4-12.3); Platelet Count 228 X10*3/uL (160-400); Red Blood Count 4.27 X10*6/uL (4.20-5.50); Red Cell Distribution Width 16.1 % (11.0-16.0); White Blood Count 11.2 X10*3/uL (4.8-10.8)
[2025-01-25] MEDS: levETIRAcetam 750 MG in 0.9 % Sodium Chloride 100 ML 430 MG IV (07:10)
[2025-01-25] MEDS: Dextrose 5 % 1,000 ML 75 ML IVCONT (07:12)
[2025-01-25 07:14] LABS: Alanine Aminotransferase 34 U/L (0-31); Albumin Level 3.4 g/dL (3.5-5.0); Alkaline Phosphatase 115 U/L (39-117); Aspartate Amino Transferase 82 U/L (5-31); Blood Urea Nitrogen 6 mg/dL (9-16); Calcium 8.4 mg/dL (8.4-10.2); Creatinine Clr Calc Pharmacy 132.3; Estimated Glomerular Filt Rate > 60; Glucose Random 110 mg/dL (60-115); Total Protein 6.8 g/dL (6.5-8.0)
[2025-01-25 07:31] LABS: Anion Gap 14 (12-20); Carbon Dioxide 30 mmol/L (22-29); Chloride 87 mmol/L (96-108); Potassium 2.4 mmol/L (3.3-5.1); Sodium 129 mmol/L (135-145)
[2025-01-25 07:49] LABS: Magnesium 2.2 mg/dL (1.6-2.6)
[2025-01-25] MEDS: Thiamine HCL 100 MG in 0.9 % Sodium Chloride 100 ML 202 MG IV (09:32)
[2025-01-25] MEDS: 0.9 % Sodium Chloride Flush 3 ML SYRINGE IVFLUSH ×2 (09:33→16:38)
[2025-01-25] MEDS: PHENobarbitaL 15 MG TABLET 45 MG PO ×2 (09:33→22:52)
[2025-01-25] MEDS: Potassium Chloride ER 20 MEQ TAB.ER.PRT 40 MEQ PO (09:33)
[2025-01-25] MEDS: Potassium Chloride/H20 10 MEQ/100 ML PIGGYBACK 100 MEQ IV ×4 (09:56→14:36)
--- NOTE | 2025-01-25 11:25 | HO.PM.IMPN ---
Subjective Subjective Date of Service: 01/25/25 Interval History: no further seizures per did not take levetiracetam 01/16-01/21 last EtOH 01/20 Review of Systems Review of Systems: Yes all other systems are reviewed and are negative Physical Exam Vital Signs: Vital Signs: Last Vital Signs Temp 98.3 F 01/25/25 10:57 Pulse 104 H 01/25/25 10:57 Resp 18 01/25/25 10:57 BP 119/75 01/25/25 10:57 Pulse Ox 97 01/25/25 10:57 O2 Del Method Room Air 01/25/25 10:57 O2 Flow Rate 4 01/24/25 17:45 Oxygen Flow Rate 15 01/24/25 11:21 BMI result Body Mass Index 20.3 Gen: in no acute distress HEENT: sclera anicteric, moist mucus membranes Neck: supple Lungs: clear to auscultation bilaterally Heart: regular rate and rhythm, no murmurs Abd: soft, non-tender, non-distended Ext: no edema Skin: warm/well-perfused Neuro: alert and oriented x3, no focal findings Psych: appropriate affect Objective Data Active Medications Acetaminophen (Acetaminophen 325 Mg Tablet) 650 mg PO Q6H PRN PRN Reason: Pain, Mild 1-3,fever,headache Last Admin: 01/24/25 20:31 Dose: 650 mg Documented By: MARIS Calcium Carbonate (Calcium Carbonate 750 Mg Tab.Chew) 750 mg PO Q4H PRN PRN Reason: Heartburn Enoxaparin Sodium (Enoxaparin Sodium 40 Mg/0.4 Ml Syringe) 40 mg SUBCUT Q24H [facility] Last Admin: 01/24/25 16:47 Dose: 40 mg Documented By: PASHA Thiamine HCl 100 mg/ Sodium (Chloride) 101 mls @ 202 mls/hr IV DAILY [facility] Last Infusion: 01/25/25 10:48 Dose: Infused Documented By: JEANNE Levetiracetam 750 mg/ Sodium (Chloride) 107.5 mls @ 430 mls/hr IV Q12H [facility] Last Infusion: 01/25/25 09:42 Dose: Infused Documented By: JEANNE Potassium Chloride (Potassium Chloride/H20) 10 meq in 100 mls @ 100 mls/hr IV Q1H [facility] Stop: 01/25/25 11:44 Last Admin: 01/25/25 09:56 Dose: 100 mls/hr Documented By: JEANNE Magnesium Hydroxide (Milk Of Magnesia 30 Ml Oral.Susp) 30 ml PO DAILY PRN PRN Reason: Constipation Melatonin (Melatonin 3 Mg Tablet) 6 mg PO BEDTIME PRN PRN Reason: Insomnia Ondansetron HCl (Ondansetron Hcl 4 Mg/2 Ml Vial) 4 mg IVPUSH Q8H PRN PRN Reason: Nausea and Vomiting Pharmacy Consult (Consult Rx Etoh Phenob Im/Po) 1 each MISCELLANE ONCE PRN; Protocol PRN Reason: Consult order Phenobarbital (Phenobarbital 15 Mg Tablet) 45 mg PO BID [facility] Stop: 01/26/25 21:01 Last Admin: 01/25/25 09:33 Dose: 45 mg Documented By: JEANNE Phenobarbital (Phenobarbital 30 Mg Tablet) 30 mg PO BID [facility] Stop: 01/28/25 21:01 Phenobarbital (Phenobarbital 15 Mg Tablet) 15 mg PO DAILY [facility] Stop: 01/30/25 09:01 Sodium Chloride (0.9 % Sodium Chloride Flush 3 Ml Syringe) 3 ml IVFLUSH QSHIFT [facility] Last Admin: 01/25/25 09:33 Dose: 3 ml Documented By: JENANE Topiramate (Topiramate 25 Mg Tablet) 25 mg PO BEDTIME [facility] Last Admin: 01/24/25 20:30 Dose: 25 mg Documented By: MARIS Labs 01/25/25 06:01 01/25/25 06:00 Labs: Laboratory Results - last 24 hr 01/24/25 01/24/25 01/24/25 11:20 12:33 15:57 MCV 79.1 L MCH 28.2 MCHC 35.6 H RDW 15.9 Plt Count 379 D MPV 8.9 L Immature Gran % (Auto) 0.5 H Neut % (Auto) 82.6 H Lymph % (Auto) 6.8 L [place] % (Auto) 9.9 Eos % (Auto) 0.0 Baso % (Auto) 0.2 Lymph # (Auto) 1.3 [place] # (Auto) 1.9 H Eos # (Auto) 0.0 Baso # (Auto) 0.0 Abs Immat Gran (auto) 0.10 H Absolute Neuts (auto) 16.1 H Absolute Nucleated RBC 0.000 Nucleated RBC % (auto) 0.0 Smear Tech's Comments VERIFIED Anion Gap 34 H 14 Estim Creat Clear Calc 68.3 104.0 Estimated GFR > 60 > 60 Random Glucose 165 H 116 H Calcium 8.5 7.9 L D Magnesium 1.8 Total Bilirubin 1.1 H Direct Bilirubin 0.5 AST 57 H ALT 35 H Alkaline Phosphatase 153 H Total Protein 7.7 Albumin 4.0 Lipase 8 Beta HCG, Quant < 2 Urine Opiates Screen Not Detected Ur Buprenorphine Scrn Not Detected Ur Oxycodone Screen Not Detected Urine Methadone Screen Not Detected Urine Fentanyl Screen Not Detected Ur Barbiturates Screen POSITIVE H Ur Phencyclidine Scrn Not Detected Ur Amphetamines Screen Not Detected U Benzodiazepines Scrn Not Detected Urine Cocaine Screen Not Detected U Marijuana (THC) Screen Not Detected Ethyl Alcohol < 10 01/25/25 01/25/25 06:00 06:01 MCV 80.6 MCH 28.3 MCHC 35.2 H RDW 16.1 H Plt Count 228 D MPV 9.3 L Immature Gran % (Auto) Neut % (Auto) Lymph % (Auto) [place] % (Auto) Eos % (Auto) Baso % (Auto) Lymph # (Auto) [place] # (Auto) Eos # (Auto) Baso # (Auto) Abs Immat Gran (auto) Absolute Neuts (auto) Absolute Nucleated RBC 0.000 Nucleated RBC % (auto) 0.0 Smear Tech's Comments Anion Gap 14 Estim Creat Clear Calc 132.3 Estimated GFR > 60 Random Glucose 110 Calcium 8.4 D Magnesium 2.2 Total Bilirubin 1.0 Direct Bilirubin AST 82 H ALT 34 H Alkaline Phosphatase 115 Total Protein 6.8 Albumin 3.4 L Lipase Beta HCG, Quant Urine Opiates Screen Ur Buprenorphine Scrn Ur Oxycodone Screen Urine Methadone Screen Urine Fentanyl Screen Ur Barbiturates Screen Ur Phencyclidine Scrn Ur Amphetamines Screen U Benzodiazepines Scrn Urine Cocaine Screen U Marijuana (THC) Screen Ethyl Alcohol Assessment and Plan (1) Epileptic seizure: Status: Acute Plan d2 34yo F with AUD with hx of withdrawal seizure and epilepsy currently on levetiracetam + topiramate presenting with several generalized seizures after noncompliance with levetiracetam. Also found to have hyponatremia + hypokalemia generalized seizure - likely due to medication noncompliance but also could be from alcohol withdrawal; doubt from hypoNa. change IV to PO topiramate. seizure precautions. continue phenobarbital taper. hypoNa/hypochloremia - hypovolemic; correcting at appropriate rate now so will d/c D5W and recheck BMP this afternoon and again in AM hypokalemia - replete IV/PO, recheck level in AM AUD with hx withdrawal seizure - phenobarbital taper, thiamine + folate, Addiction Medicine consultation mood disorder - continue quetiapine + sertraline + hydroxzine VTE ppx - enoxaparin dispo - eventual home In my clinical judgment, the patient requires continued inpatient hospitalization for the following reasons: electrolyte abnormalities Total time managing care of this patient today: 40 minutes. Quality Stroke Does the patient have a stroke diagnosis?: No VTE Prior VTE?: No VTE Risk Level:: Medical - moderate - high VTE Device Contraindication: N/A - Device Ordered VTE Drug Contraindication: N/A - Med Ordered
--- NOTE | 2025-01-25 11:27 | MHC.CM.PN ---
Pt lives with S.O. She does not have home health services or DME.. PCP confirmed: Ritchie Flores. S.O. to transport home at DC. DCP: home, self care. CM to follow for DC needs.
--- NOTE | 2025-01-25 11:41 | MHC.RECOVRN ---
Attempted to meet with pt in 479 after receiving Addiction Medicine consult for alcohol use. Pt laying in bed, asleep, wakes to voice, appears drowsy. Pt reports she is very tired and requesting t/w to return later. Jamila Cardenas APRN, aware.
[2025-01-25 16:00] LABS: Anion Gap 11 (12-20); Blood Urea Nitrogen 5 mg/dL (9-16); Calcium 8.4 mg/dL (8.4-10.2); Carbon Dioxide 27 mmol/L (22-29); Chloride 92 mmol/L (96-108); Creatinine Clr Calc Pharmacy 125.3; Estimated Glomerular Filt Rate > 60; Glucose Random 91 mg/dL (60-115); Potassium 3.3 mmol/L (3.3-5.1); Sodium 127 mmol/L (135-145)
[2025-01-25] MEDS: Enoxaparin Sodium 40 MG/0.4 ML SYRINGE SUBCUT (16:37)
[2025-01-25] MEDS: Sucralfate 1 GM TABLET PO ×3 (16:38→22:58)
[2025-01-25] MEDS: levETIRAcetam 250 MG TABLET 750 MG PO (22:52)
[2025-01-25] MEDS: QUEtiapine Fumarate 50 MG TABLET PO (22:52)
[2025-01-25] MEDS: Topiramate 25 MG TABLET PO (22:52)
[2025-01-26 04:00] VITALS: BP 124/79; PULSE 95; RESP 18; TEMP 36.4; O2SAT 100
[2025-01-26 07:23] VITALS: BP 131/85; PULSE 88; RESP 18; TEMP 36.4; O2SAT 100
[2025-01-26 08:12] LABS: Anion Gap 14 (12-20); Blood Urea Nitrogen 7 mg/dL (9-16); Calcium 8.9 mg/dL (8.4-10.2); Carbon Dioxide 26 mmol/L (22-29); Chloride 93 mmol/L (96-108); Creatinine Clr Calc Pharmacy 127.6; Estimated Glomerular Filt Rate > 60; Glucose Random 88 mg/dL (60-115); Magnesium 1.9 mg/dL (1.6-2.6); Potassium 3.1 mmol/L (3.3-5.1); Sodium 130 mmol/L (135-145)
[2025-01-26] MEDS: Sucralfate 1 GM TABLET PO ×2 (09:27→12:33)
[2025-01-26] MEDS: Thiamine HCL 100 MG TABLET PO (09:28)
[2025-01-26] MEDS: Magnesium Oxide 400 MG TABLET PO (09:28)
[2025-01-26] MEDS: hydrOXYzine HCL 50 MG TABLET PO (09:29)
[2025-01-26] MEDS: Potassium Chloride ER 20 MEQ TAB.ER.PRT PO (09:30)
[2025-01-26] MEDS: PHENobarbitaL 15 MG TABLET 45 MG PO (09:31)
[2025-01-26] MEDS: Sertraline HCL 100 MG TABLET PO (09:32)
[2025-01-26] MEDS: Folic Acid 1 MG TABLET PO (09:32)
[2025-01-26] MEDS: levETIRAcetam 250 MG TABLET 750 MG PO (09:33)
[2025-01-26] MEDS: 0.9 % Sodium Chloride Flush 3 ML SYRINGE IVFLUSH ×2 (09:42)
[2025-01-26 11:14] VITALS: BP 123/82; PULSE 85; RESP 18; TEMP 36.7; O2SAT 100
--- NOTE | 2025-01-26 11:44 | HO.PM.IMPN ---
Subjective Subjective Date of Service: 01/26/25 Interval History: no further seizures no tremor feels tired interested in Vivitrol Review of Systems Review of Systems: Yes all other systems are reviewed and are negative Physical Exam Vital Signs: Vital Signs: Last Vital Signs Temp 98.1 F 01/26/25 11:14 Pulse 85 01/26/25 11:14 Resp 18 01/26/25 11:14 BP 123/82 01/26/25 11:14 Pulse Ox 100 01/26/25 11:14 O2 Del Method Room Air 01/26/25 11:14 O2 Flow Rate 4 01/24/25 17:45 Oxygen Flow Rate 15 01/24/25 11:21 BMI result Body Mass Index 20.3 Gen: in no acute distress HEENT: sclera anicteric, moist mucus membranes Neck: supple Lungs: clear to auscultation bilaterally Heart: regular rate and rhythm, no murmurs Abd: soft, non-tender, non-distended Ext: no edema Skin: warm/well-perfused Neuro: alert and oriented x3, no focal findings Psych: appropriate affect Objective Data Active Medications Acetaminophen (Acetaminophen 325 Mg Tablet) 650 mg PO Q6H PRN PRN Reason: Pain, Mild 1-3,fever,headache Last Admin: 01/24/25 20:31 Dose: 650 mg Documented By: MARIS Calcium Carbonate (Calcium Carbonate 750 Mg Tab.Chew) 750 mg PO Q4H PRN PRN Reason: Heartburn Enoxaparin Sodium (Enoxaparin Sodium 40 Mg/0.4 Ml Syringe) 40 mg SUBCUT Q24H [facility] Last Admin: 01/25/25 16:37 Dose: 40 mg Documented By: JEANNE Folic Acid (Folic Acid 1 Mg Tablet) 1 mg PO DAILY [facility] Last Admin: 01/26/25 09:32 Dose: 1 mg Documented By: GEORGE Hydroxyzine HCl (Hydroxyzine Hcl 50 Mg Tablet) 50 mg PO DAILY [facility] Last Admin: 01/26/25 09:29 Dose: 50 mg Documented By: GEORGE Levetiracetam (Levetiracetam 250 Mg Tablet) 750 mg PO BID [facility] Last Admin: 01/26/25 09:33 Dose: 750 mg Documented By: GEORGE Magnesium Hydroxide (Milk Of Magnesia 30 Ml Oral.Susp) 30 ml PO DAILY PRN PRN Reason: Constipation Magnesium Oxide (Magnesium Oxide 400 Mg Tablet) 400 mg PO DAILY [facility] Last Admin: 01/26/25 09:28 Dose: 400 mg Documented By: GEORGE Melatonin (Melatonin 3 Mg Tablet) 6 mg PO BEDTIME PRN PRN Reason: Insomnia Ondansetron HCl (Ondansetron Hcl 4 Mg/2 Ml Vial) 4 mg IVPUSH Q8H PRN PRN Reason: Nausea and Vomiting Pharmacy Consult (Consult Rx Etoh Phenob Im/Po) 1 each MISCELLANE ONCE PRN; Protocol PRN Reason: Consult order Phenobarbital (Phenobarbital 15 Mg Tablet) 45 mg PO BID [facility] Stop: 01/26/25 21:01 Last Admin: 01/26/25 09:31 Dose: 45 mg Documented By: GEORGE Phenobarbital (Phenobarbital 30 Mg Tablet) 30 mg PO BID [facility] Stop: 01/28/25 21:01 Phenobarbital (Phenobarbital 15 Mg Tablet) 15 mg PO DAILY [facility] Stop: 01/30/25 09:01 Potassium Chloride (Potassium Chloride Er 20 Meq Tab.Er.Prt) 20 meq PO DAILY [facility] Last Admin: 01/26/25 09:30 Dose: 20 meq Documented By: GEORGE Quetiapine Fumarate (Quetiapine Fumarate 50 Mg Tablet) 50 mg PO BEDTIME [facility] Last Admin: 01/25/25 22:52 Dose: 50 mg Documented By: YFN Sertraline HCl (Sertraline Hcl 100 Mg Tablet) 100 mg PO DAILY [facility] Last Admin: 01/26/25 09:32 Dose: 100 mg Documented By: GEORGE Sodium Chloride (0.9 % Sodium Chloride Flush 3 Ml Syringe) 3 ml IVFLUSH QSHIFT [facility] Last Admin: 01/26/25 09:42 Dose: 3 ml Documented By: GEORGE Sucralfate (Sucralfate 1 Gm Tablet) 1 gm PO QID [facility] Last Admin: 01/26/25 09:27 Dose: 1 gm Documented By: GEORGE Thiamine HCl (Thiamine Hcl 100 Mg Tablet) 100 mg PO DAILY [facility] Last Admin: 01/26/25 09:28 Dose: 100 mg Documented By: GEORGE Topiramate (Topiramate 25 Mg Tablet) 25 mg PO BEDTIME [facility] Last Admin: 01/25/25 22:52 Dose: 25 mg Documented By: YFN Labs 01/25/25 06:01 01/26/25 07:23 Labs: Laboratory Results - last 24 hr 01/25/25 01/26/25 15:05 07:23 Hold Purple Top SEE NOTE Anion Gap 11 L 14 Estim Creat Clear Calc 125.3 127.6 Estimated GFR > 60 > 60 Random Glucose 91 88 Calcium 8.4 8.9 Magnesium 1.9 Assessment and Plan (1) Epileptic seizure: Status: Acute Plan d3 34yo F with AUD with hx of withdrawal seizure and epilepsy currently on levetiracetam + topiramate presenting with several generalized seizures after noncompliance with levetiracetam; also found to have hyponatremia + hypokalemia generalized seizure - likely due to medication noncompliance but also could be from alcohol withdrawal; doubt from hypoNa. continue levetiracetam, topiramate. seizure precautions. continue phenobarbital taper. hypoNa/hypochloremia - corrected at appropriate rate hypokalemia - replete PO, recheck level in AM AUD with hx withdrawal seizure - continue phenobarbital taper, thiamine + folate, Addiction Medicine consultation re: Vivitrol mood disorder - continue quetiapine + sertraline + hydroxzine VTE ppx - enoxaparin dispo - eventual home In my clinical judgment, the patient requires continued inpatient hospitalization for the following reasons: inpt mgmt of alcohol withdrawal Total time managing care of this patient today: 40 minutes. Quality Stroke Does the patient have a stroke diagnosis?: No VTE Prior VTE?: No VTE Risk Level:: Medical - moderate - high VTE Device Contraindication: N/A - Device Ordered VTE Drug Contraindication: N/A - Med Ordered
--- NOTE | 2025-01-26 13:37 | P.DS_ITS ---
DS: Providers Provider Date of Service: 01/26/25 Date of admission: 01/24/25 14:36 Date of discharge: 01/26/25 Primary care physician: Rupert Flores MD Consults: 01/24/25 14:47 Addiction Medicine Provider Routine Consulting Provider: Addiction Covering Reason for consultation: etoh 01/25/25 09:29 Inpt - Recovery Team Routine Comment: Reason for consultation: GAGE eval DS: Diagnosis Discharge Diagnosis (1) Epileptic seizure: Status: Acute (2) Alcohol withdrawal: Status: Acute (3) Hypokalemia: Status: Acute (4) Acute hyponatremia: Status: Acute (5) Noncompliance: Status: Acute DS: Summary Hospital Course Hospital Course: from my admission H+P, 01/24/25: 34yo F with AUD with hx of withdrawal seizure and epilepsy currently on levetiracetam + topiramate who was last admitted here 01/02-01/03/25 for generalized seizure attributed to noncompliance with levetiracetam. She presents after two 15-second seizures witnessed by her at home with complete recovery in between. Last EtOH intake 5 days prior to presentation. Reportedly did not take levetiracetam for 4 days last week. Upon arrival in the ED, she had a witnessed 30-second generalized seizure with relatively quick recovery of mental status, but then became agitated afterwards. She was given total of 3 mg of IM and 2 mg of IV lorazepam and loaded with phenobarbital and levetiracetam as well. She was also given 2L of IV LR. Noted to have low potassium of 2.8; magnesium was 1.8. Also with hyponatremia/hypochloremia with Na of 122 and Cl of 70. Bicarbonate 21, anion gap 34. Urine toxicology positive for bar biturates but she was treated with phenobarbital on her last admission. 34yo F with AUD with hx of withdrawal seizure and epilepsy currently on levetiracetam + topiramate presenting with several generalized seizures after noncompliance with levetiracetam; also found to have hyponatremia + hypokalemia. She was admitted to the telemetry unit. Hospital course by problem: generalized seizure - Likely due to medication noncompliance but other contributing factors could include alcohol withdrawal and hyponatremia. No further seizures once she was restarted on her regimen of levetiracetam plus topiramate. She was also treated with phenobarbital taper for prevention of alcohol withdrawal. Importance of compliance with antiepileptics was counseled. hypoNa/hypochloremia - Initially came up quickly with LR, then slowed down with addition of D5W, which was discontinued once rate of correction was appropriate. Na 130 upon discharge. Repeat BMP ordered for outpatient lab 01/29/25. hypokalemia - Repleted IV and PO. Started on 20 mEq KCl daily and K 3.1 on discharge. Repeat BMP ordered for outpatient lab 01/29/25. AUD with hx withdrawal seizure - Treated with phenobarbital taper to prevent withdrawal syndrome. Also given thiamine + folate. Addiction Medicine consulted and she was prescribed naltrexone upon discharge. She will follow up with [facility] for further care. Time Attestation Discharge Coordination Time (in mins): 40 Quality: Safe Use of Opioids Does Pt have an Active Cancer Diagnosis on the Problem List?: No Quality: Stroke Does the patient have a stroke diagnosis?: No Physical Exam Vital Signs: Vital Signs: Last Vital Signs Temp 98.1 F 01/26/25 11:14 Pulse 85 01/26/25 11:14 Resp 18 01/26/25 11:14 BP 123/82 01/26/25 11:14 Pulse Ox 100 01/26/25 11:14 O2 Del Method Room Air 01/26/25 11:14 O2 Flow Rate 4 01/24/25 17:45 Oxygen Flow Rate 15 01/24/25 11:21 BMI result Body Mass Index 20.3 Gen: in no acute distress HEENT: sclera anicteric, moist mucus membranes Neck: supple Lungs: clear to auscultation bilaterally Heart: regular rate and rhythm, no murmurs Abd: soft, non-tender, non-distended Ext: no edema Skin: warm/well-perfused Neuro: alert and oriented x3, no focal findings Psych: appropriate affect DS: Data Data Completed and Pending Completed studies during hospitalization [Text1]: Laboratory Results WBC 11.2 X10*3/uL (4.8-10.8) H 01/25/25 06:01 RBC 4.27 X10*6/uL (4.20-5.50) 01/25/25 06:01 Hgb 12.1 g/dl (12.0-16.0) 01/25/25 06:01 Hct 34.4 % (37.0-47.0) L 01/25/25 06:01 MCV 80.6 fL (80.0-98.0) 01/25/25 06:01 MCH 28.3 pg (27.0-33.0) 01/25/25 06:01 MCHC 35.2 g/dl (31.0-35.0) H 01/25/25 06:01 RDW 16.1 % (11.0-16.0) H 01/25/25 06:01 Plt Count 228 X10*3/uL (160-400) D 01/25/25 06:01 MPV 9.3 fL (9.4-12.3) L 01/25/25 06:01 Immature Gran % (Auto) 0.5 % (0.0-0.4) H 01/24/25 11:20 Neut % (Auto) 82.6 % (45-73) H 01/24/25 11:20 Lymph % (Auto) 6.8 % (20-40) L 01/24/25 11:20 [place] % (Auto) 9.9 % (2-11) 01/24/25 11:20 Eos % (Auto) 0.0 % (0-4) 01/24/25 11:20 Baso % (Auto) 0.2 % (0-2) 01/24/25 11:20 Lymph # (Auto) 1.3 X10*3/uL (1.2-4.9) 01/24/25 11:20 [place] # (Auto) 1.9 X10*3/uL (0.1-1.2) H 01/24/25 11:20 Eos # (Auto) 0.0 X10*3/uL (0.0-0.4) 01/24/25 11:20 Baso # (Auto) 0.0 X10*3/uL (0.0-0.2) 01/24/25 11:20 Abs Immat Gran (auto) 0.10 X10*3/uL (0.00-0.03) H 01/24/25 11:20 Absolute Neuts (auto) 16.1 x10*3/uL (2.0-8.3) H 01/24/25 11:20 Absolute Nucleated RBC 0.000 X10*3/uL (0.0-0.012) 01/25/25 06:01 Nucleated RBC % (auto) 0.0 /100WBC (0.0-0.2) 01/25/25 06:01 Smear Tech's Comments VERIFIED 01/24/25 11:20 Hold Purple Top SEE NOTE 01/26/25 07:23 Sodium 130 mmol/L (135-145) L 01/26/25 07:23 Potassium 3.1 mmol/L (3.3-5.1) L 01/26/25 07:23 Chloride 93 mmol/L (96-108) L 01/26/25 07:23 Carbon Dioxide 26 mmol/L (22-29) 01/26/25 07:23 Anion Gap 14 (12-20) 01/26/25 07:23 BUN 7 mg/dL (9-16) L 01/26/25 07:23 Creatinine 0.56 mg/dL (0.5-1.4) 01/26/25 07:23 Estim Creat Clear Calc 127.6 01/26/25 07:23 Estimated GFR > 60 01/26/25 07:23 Random Glucose 88 mg/dL (60-115) 01/26/25 07:23 Calcium 8.9 mg/dL (8.4-10.2) 01/26/25 07:23 Magnesium 1.9 mg/dL (1.6-2.6) 01/26/25 07:23 Total Bilirubin 1.0 mg/dL (0.0-1.0) 01/25/25 06:00 Direct Bilirubin 0.5 mg/dL (0.0-0.5) 01/24/25 11:20 AST 82 U/L (5-31) H 01/25/25 06:00 ALT 34 U/L (0-31) H 01/25/25 06:00 Alkaline Phosphatase 115 U/L (39-117) 01/25/25 06:00 Total Protein 6.8 g/dL (6.5-8.0) 01/25/25 06:00 Albumin 3.4 g/dL (3.5-5.0) L 01/25/25 06:00 Lipase 8 U/L (8-78) 01/24/25 11:20 Beta HCG, Quant < 2 mIU/mL 01/24/25 11:20 Urine Opiates Screen Not Detected (Not Detect) 01/24/25 12:33 Ur Buprenorphine Scrn Not Detected ng/mL (Not Detect) 01/24/25 12:33 Ur Oxycodone Screen Not Detected ng/mL (Not Detect) 01/24/25 12:33 Urine Methadone Screen Not Detected ng/mL (Not Detect) 01/24/25 12:33 Urine Fentanyl Screen Not Detected (Not Detect) 01/24/25 12:33 Ur Barbiturates Screen POSITIVE (Not Detect) H 01/24/25 12:33 Ur Phencyclidine Scrn Not Detected (Not Detect) 01/24/25 12:33 Ur Amphetamines Screen Not Detected (Not Detect) 01/24/25 12:33 U Benzodiazepines Scrn Not Detected (Not Detect) 01/24/25 12:33 Urine Cocaine Screen Not Detected (Not Detect) 01/24/25 12:33 U Marijuana (THC) Screen Not Detected (Not Detect) 01/24/25 12:33 Ethyl Alcohol < 10 mg/dL 01/24/25 11:20 Discharge Plan Discharge Anticipated Discharge Date/Time: 01/26/25 18:34 Patient Disposition: Home, Self-Care Discharge Diagnosis: seizure due to noncompliance alcohol use disorder hyponatremia hypokalemia Referrals: Rupert Flores MD [Primary Care Provider] - 1 Week Jamila Cardenas CNP [Nurse Practitioner] - 1 Week ([facility] has moved to [address]. Please call [phone] for an appointment to receive Vivitrol. The office is open Mondays, Fridays, and Wednesday afternoons. The [facility] RN will also reach out to you to schedule. ) Discharge Medications: New naltrexone 50 mg tablet 50 mg PO DAILY Qty: 30 0RF Rx Instructions: take 1/2 tab daily for 3 days then increase to one tab daily topiramate 25 mg Tablet 25 mg PO BEDTIME Qty: 30 0RF potassium chloride 20 mEq Tablet,Er Particles/Crystals 20 meq PO DAILY Qty: 30 0RF thiamine mononitrate (vit B1) 100 mg Tablet 100 mg PO DAILY Qty: 30 0RF Continued folic acid 1 mg Tablet 1 mg PO DAILY Qty: 30 0RF sucralfate 1 gram tablet 1 g PO QID quetiapine 50 mg tablet 50 mg PO BEDTIME sertraline 100 mg tablet 100 mg PO DAILY hydroxyzine HCl 25 mg tablet 50 mg PO DAILY magnesium oxide 400 mg (241.3 mg magnesium) tablet 400 mg PO DAILY levetiracetam 750 mg tablet 750 mg PO BID Qty: 60 0RF Discharge Orders: Discharge Order (Routine); Ordered 01/26/25 Ordered By: Shavon Seals Diet: Advance to usual diet Activity on Discharge: As tolerated Stand Alone Forms: Patient Portal Discharge page Print Language: Tamazight Other Ambulatory Orders: Basic Metabolic Panel (Routine) Timeframe: [id number] Facility: [facility] - Location: Laboratory Ordered By: Shavon Seals Care Plan Goals: sobriety seizure control Health Concerns: seizure due to noncompliance alcohol use disorder hyponatremia hypokalemia Plan of Treatment: take levetiracetam [750 mg twice daily] and do not miss any doses take topiramate [25 mg at bedtime] and do not miss any doses take naltrexone 25 mg daily x 3 days, then 50 mg daily take potassium chloride 20 mEq daily recheck labs [BMP] on 01/29/25. You do not need to fast for these labs. follow up at [facility] [place] [facility], [address] [place] [address] [phone], Please follow up with your primary care doctor within 1 week. Return to the hospital if you experience recurrent or worsening symptoms. Assessment: See Discharge Summary.
--- NOTE | 2025-01-26 13:54 | MHC.CM.PN ---
PT TO DC HOME TODAY WITH NO SERVICES VIA PRIVATE TRANSPORT
== END 2025-01-26 15:30 | disposition home or self-care (01) | DRG 53 ==
LOC: HO.ED 13:44 → HO.EDOVER 14:55 → HO.IMC 16:10
PROVIDERS: Admitting Provider Family Medicine; Emergency Provider Emergency Medicine; PCP Family Medicine; Visit Provider Family Medicine
DX: G40.409 Other generalized epilepsy and epileptic syndromes, not intractable, without status epilepticus (principal); E87.8 Other disorders of electrolyte and fluid balance, not elsewhere classified; E87.1 Hypo-osmolality and hyponatremia; F10.239 Alcohol dependence with withdrawal, unspecified; R56.9 Unspecified convulsions; F39 Unspecified mood [affective] disorder; E87.6 Hypokalemia; E86.1 Hypovolemia; R33.9 Retention of urine, unspecified; F17.210 Nicotine dependence, cigarettes, uncomplicated; Z91.148 Patient's other noncompliance with medication regimen for other reason; Z71.6 Tobacco abuse counseling; Z79.899 Other long term (current) drug therapy
CPT/HCPCS: 36415; 80048; 80053; 80076; 80307; 83690; 83735; 84295; 84702; 85025; 85027; 93005; 99285; J1650; J1953; J2060; J2560; J3411; J3475; J3480; J7120; S9485

== ENCOUNTER → 2025-01-24 11:04 | Outpatient (BNV) | payer OTHER, SELFPAY | PROVIDERS: Emergency Provider Emergency Medicine; Visit Provider Internal Medicine Cardiovascular Disease | DX: R00.0 Tachycardia, unspecified (principal); G40.909 Epilepsy, unspecified, not intractable, without status epilepticus | CPT/HCPCS: 93010 ==

== ENCOUNTER → 2025-01-24 14:36 | Outpatient (BNV) | payer OTHER, SELFPAY | PROVIDERS: Admitting Provider Family Medicine; Emergency Provider Emergency Medicine; Visit Provider Family Medicine | DX: G40.909 Epilepsy, unspecified, not intractable, without status epilepticus (principal) | CPT/HCPCS: 99232 ==

== ENCOUNTER 2025-03-27 17:57 | Inpatient (IN) | payer OTHER, SELFPAY ==
[2025-03-27 18:21] VITALS: BP 147/88; PULSE 122; RESP 14; O2SAT 100; BMI 20.9
[2025-03-27 18:37] LABS: MANUAL DIFF FLAG NO
--- NOTE | 2025-03-27 18:39 | ECG_ITS ---
Test Reason : LOW POTASSIUM Blood Pressure : */* mmHG Vent. Rate : 125 BPM Atrial Rate : 125 BPM P-R Int : 128 ms QRS Dur : 88 ms QT Int : 340 ms P-R-T Axes : 84 88 64 degrees QTcB Int : 490 ms Sinus tachycardia Otherwise normal ECG When compared with ECG of 24-Jan-2025 11:24, Non-specific change in ST segment in Inferior leads Referred By: Suzanna Rodarte Electronically Signed By: CHING MCCARTHY MD
[2025-03-27] MEDS: Lactated Ringers 1,000 ML 999 ML IV (18:40)
[2025-03-27] MEDS: LORazepam 1 MG TABLET 2 MG PO (18:40)
[2025-03-27 18:55] LABS: Alanine Aminotransferase 25 U/L (0-31); Albumin Level 4.4 g/dL (3.5-5.0); Alkaline Phosphatase 169 U/L (39-117); Anion Gap 24 (12-20); Aspartate Amino Transferase 67 U/L (5-31); Blood Urea Nitrogen 12 mg/dL (9-16); Calcium 8.5 mg/dL (8.4-10.2); Carbon Dioxide 27 mmol/L (22-29); Chloride 78 mmol/L (96-108); Estimated Glomerular Filt Rate > 60; Ethanol 330 mg/dL; Glucose Random 142 mg/dL (60-115); Lipase 45 U/L (8-78); Potassium 2.1 mmol/L (3.3-5.1); Sodium 127 mmol/L (135-145); Total Protein 8.2 g/dL (6.5-8.0)
[2025-03-27 18:57] LABS: Basophils Percent Auto 0.1 % (0-2); Hematocrit 37.3 % (37.0-47.0); Hemoglobin 13.7 g/dl (12.0-16.0); Imm Gran Abs Auto 0.03 X10*3/uL (0.00-0.03); Imm Gran Pct Auto 0.3 % (0.0-0.4); Lymphocytes Absolute Auto 0.9 X10*3/uL (1.2-4.9); Lymphocytes Percent Auto 9.2 % (20-40); Mean Corpuscular HGB Conc 36.7 g/dl (31.0-35.0); Mean Corpuscular Volume 78.9 fL (80.0-98.0); Monocytes Absolute Auto 0.6 X10*3/uL (0.1-1.2); Monocytes Percent Auto 6.1 % (2-11); Neutrophils Absolute Auto 8.1 x10*3/uL (2.0-8.3); Neutrophils Percent Auto 84.3 % (45-73); Platelet Count 140 X10*3/uL (160-400); Red Blood Count 4.73 X10*6/uL (4.20-5.50); Red Cell Distribution Width 13.5 % (11.0-16.0); White Blood Count 9.6 X10*3/uL (4.8-10.8)
[2025-03-27] MEDS: 0.9 % Sodium Chloride 1,000 ML 999 ML IV (19:17)
[2025-03-27] MEDS: Potassium Chloride/H20 10 MEQ/100 ML PIGGYBACK 100 MEQ IV ×4 (19:26→23:35)
[2025-03-27] MEDS: Potassium Chloride Packet 20 MEQ PACKET 40 MEQ PO (19:26)
--- NOTE | 2025-03-27 19:37 | PC.NURSE ---
Patient refused PO Potassium tablets (40 meq) due to size. Offered to cut in half, but unable to crush medication due to extended release/instructions. Patient refused and requested that this RN crush the medication. Spoke with RAFAEL Rodarte who offered Potassium 40meq in powder form. Patient accepted this. Hypokalemia 2.1 per lab results. Cardiac monitoring is continuous, 130s HR at this time. Care ongoing by this RN. 18g IV access established to right upper arm, ultrasound guided by RAFAEL Rodarte upon arrival. Hx difficult stick. [place] [facility] Seizure precautions in place.
[2025-03-27 20:00] VITALS: BP 148/93; PULSE 136; RESP 16; TEMP 36.5; O2SAT 97
[2025-03-27 21:17] LABS: Appearance Urine Cloudy; Color Urine Yellow; Glucose Urine UA Negative (Negative); Leukocyte Esterase Urine Small (1+) (Negative); Nitrite Urine Negative (Negative); PH 6.5 (5.0-9.0); UMIC TRIGGER UACC YES; Urine Blood Small (1+) (Negative); Urine Ketones 15 mg/dL (Negative); Urine Protein 300 (3+) mg/dL (Neg-Trace)
[2025-03-27 21:22] LABS: Amphetamine Screen Urine Not Detected (Not Detect); Barbiturates, Urine POSITIVE (Not Detect); Benzodiazepines Screen Urine Not Detected (Not Detect); Buprenorphine Scr Not Detected (Not Detect); Cannabinoid Screen Urine Not Detected (Not Detect); Cocaine Screen Urine POSITIVE (Not Detect); Fentanyl, urine Not Detected (Not Detect); Methadone Screen, Urine Not Detected (Not Detect); Opiate Screen Urine Not Detected (Not Detect); Oxycodone Screen Urine Not Detected (Not Detect); Phencyclidine Screen Urine Not Detected (Not Detect)
[2025-03-27 21:30] LABS: UPreg QC Valid YES; Urine Pregnancy NEGATIVE (NEGATIVE)
--- NOTE | 2025-03-27 21:36 | PC.NURSE ---
Delayed note by this RN: Patient frequently urinating. RAFAEL Rodarte aware of this. Has used bedpan x4 since arrival, and ambulated to bathroom with standby assist x1. BM x1. IV access established by RAFAEL Rodarte to right upper arm with ultrasound guidance. Ethanol 330. Significant other was at bedside earlier this shift and reports that the patient hasn't been taking her medications for at least the past 3 days . RAFAEL Rodarte aware of this statement. Supposed to take Keppra scheduled. CIWA 11. Tachycardia 130s throughout the majority of this shift, restless since arrival. HR currently 110s. RN to RN report given to Татьяна HURTADO.
[2025-03-27 21:44] VITALS: BP 148/101; PULSE 116; RESP 18; TEMP 37.1; O2SAT 98
--- NOTE | 2025-03-27 21:57 | ED_ITS ---
HPI - General Adult General Chief complaint: General Medical Stated complaint: etoh alcohol with-drawl Time Seen by Provider: 03/27/25 18:10 Source: patient Limitations: other (Intoxicated) History of Present Illness ED Provider: Suzanna Rodarte PA-C HPI narrative: 34 y/o F with hx of alcohol use disorder, alcohol withdrawal, seizure disorder on Keppra, who presents with a concerns for alcohol withdrawal. Patient states she last drank this morning, but that she only ?had 1 nip . Patient has also not taken her Keppra for the past 3 days. History limited as the patient appears clinically intoxicated. Related Data Home Medications ?Medication ?Instructions ?Recorded ?Confirmed sucralfate 1 gram tablet 1 g PO QID 06/19/24 01/24/25 hydroxyzine HCl 25 mg tablet 50 mg PO DAILY Anxiety 08/29/24 01/24/25 magnesium oxide 400 mg (241.3 mg 400 mg PO DAILY 08/29/24 01/24/25 magnesium) tablet sertraline 100 mg tablet 100 mg PO DAILY 08/29/24 01/24/25 quetiapine 50 mg tablet 50 mg PO BEDTIME insomnia 09/16/24 01/24/25 Previous Rx's ?Medication ?Instructions ?Recorded folic acid 1 mg tablet 1 mg PO DAILY #30 tabs 05/24/23 levetiracetam 750 mg tablet 750 mg PO BID #60 tabs 01/26/25 naltrexone 50 mg tablet 50 mg PO DAILY #30 tabs 01/26/25 potassium chloride 20 mEq 20 meq PO DAILY #30 tabs 01/26/25 tablet,extended release(part/cryst) thiamine mononitrate (vit B1) 100 100 mg PO DAILY #30 tabs 01/26/25 mg tablet topiramate 25 mg tablet 25 mg PO BEDTIME #30 tabs 01/26/25 Allergies Allergy/AdvReac Type Severity Reaction Status Date / Time Iodinated Contrast Media AdvReac Hives Verified 03/27/25 18:23 [Contrast Dye] Review of Systems 2 Review of Systems: Unable to obtain secondary to intoxication Yes all other systems are reviewed and are negative PMFSH Past Medical History Attestation statement: The following information was validated with the patient. 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) Unable to assess alcohol history related to: Unable to respond Alcohol intake: current Alcohol intake frequency: a few times a week Alcohol type: hard liquor Comment: pt refused bed alarm Patient Tobacco Use Status: Current everyday Tobacco user Tobacco use type: Smokeless Tobacco e-Cigarette/Vaping Use: Currently Using Substance Use Type: Crack/Cocaine Advance Directives: No Advance Directives Information Provided: Yes service: No Physical Exam ED Vital Signs: Vital Signs - 24 hr 03/27/25 18:21 03/27/25 20:00 03/27/25 21:44 Temperature 97.7 F 98.7 F Pulse Rate 122 H 136 H 116 H Respiratory Rate 14 16 18 Blood Pressure 147/88 H 148/93 H 148/101 H Pulse Oximetry 100 97 98 Oxygen Delivery Method Room Air Room Air Room Air BMI result Body Mass Index 20.9 Const Other: Awake, appears older than stated age Orientation/consciousness: oriented to person and oriented to place HENMT Other: Alcohol halitosis Resp Effort & Inspection: normal respiratory effort Cardio Other: Normal peripheral perfusion Skin Other: Warm dry no rash Neuro Other: Can not give me an exact accurate time knows the month and the year, she is tremulous, gait instability but walking on her own General: oriented to person, oriented to place, no focal motor deficits and CN's II-XI intact bilaterally Psych Other: Cooperative, flat affect Course Course Course Narrative: Patient critically hypokalemic, we will be giving 40 milliequivalents IV and oral. Her magnesium is normal, ordering normal saline to couple with the IV potassium. Reevaluation(s) Reevaluation #1: Patient's CIWA scale is escalating, ordering the phenobarb protocol Time: 23:01 Medications Administered Discontinued Medications Generic Name Dose Route Start Last Admin Trade Name Freq PRN Reason Stop Dose Admin Lactated Ringer's 1,000 mls @ 999 mls/hr 03/27/25 18:15 03/27/25 19:41 Lr IV 03/27/25 19:15 Infused .Q1H1M ARTURO Infusion Potassium Chloride 10 meq in 100 mls @ 100 mls/hr 03/27/25 19:15 03/27/25 23:35 Potassium Chloride/H20 IV 03/27/25 23:14 100 mls/hr Q1H ARTURO Administration Sodium Chloride 1,000 mls @ 999 mls/hr 03/27/25 19:15 03/27/25 20:18 Ns IV 03/27/25 20:15 Infused .Q1H1M ARTURO Infusion Levetiracetam 1,000 mg in 100 mls @ 400 mls/hr 03/27/25 22:00 03/27/25 23:42 Keppra IV 03/27/25 22:14 Infused ONCE ONE Infusion Thiamine HCl 100 mg/ Sodium 101 mls @ 202 mls/hr 03/27/25 22:01 03/27/25 23:20 Chloride IV 03/27/25 22:30 202 mls/hr ONCE ONE Administration Lorazepam 2 mg 03/27/25 18:10 03/27/25 18:40 Lorazepam 1 Mg Tablet PO 03/27/25 18:11 2 mg ONCE ONE Administration Phenobarbital Sodium 240 mg 03/27/25 23:00 03/27/25 23:20 Phenobarbital Sodium 130 Mg/Ml Im Once IM 03/27/25 23:01 240 mg ONCE ONE Administration Potassium Chloride 40 meq 03/27/25 19:04 03/27/25 19:17 Potassium Chloride Er 20 Meq Tab.Er.Prt PO 03/27/25 19:05 Not Given ONCE ONE Potassium Chloride 40 meq 03/27/25 19:17 03/27/25 19:26 Potassium Chloride Packet 20 Meq Packet PO 03/27/25 19:18 40 meq ONCE ONE Administration Procedures Procedure Narrative Procedure Narrative: Ultrasound-guided IV 18 gauge 1-3/4 inch IV placed in right upper extremity, adequate blood return, flushes well secured with Tegaderm Medical Decision Making Medical Decision Making MDM Narrative: 34 y/o F with hx of alcohol use disorder, alcohol withdrawal, seizure disorder on Keppra, who presents with a concerns for alcohol withdrawal. Patient states she last drank this morning, but that she only ?had 1 nip . Patient has also not taken her Keppra for the past 3 days. History limited as the patient appears clinically intoxicated. Problem: Alcohol use disorder, prior alcohol withdrawal, seizure disorder with nonadherence to medications History: Per patient I have considered the following differential diagnoses: Alcohol intoxication, alcohol withdrawal, dehydration, electrolyte abnormality Plan: The patient is tremulous, tachycardic, however I can smell alcohol on her breath. It is unclear at what threshold the patient with draws. We will be screening basic labs, serum ethanol, and obtaining an EKG. We will give oral Ativan, a liter of LR, to note she is not febrile, rectal temp was checked. She may require admission I have independently reviewed the following tests: Labs: No leukocytosis, not anemic, thrombocytopenic that is mild, potassium critically low at 2.1, hyponatremic at 1:27, gap of 24, urine not infected, not , ethanol 330, drug screen positive for barbiturates and cocaine EKG: Sinus tachycardia, rate of 125, QTC 490, no ectopy no ischemic changes Lab Data 03/27/25 18:32 03/27/25 18:32 Labs: Lab Results 03/27/25 03/27/25 Range/Units 18:32 21:02 WBC 9.6 (4.8-10.8) X10*3/uL RBC 4.73 (4.20-5.50) X10*6/uL Hgb 13.7 (12.0-16.0) g/dl Hct 37.3 (37.0-47.0) % MCV 78.9 L (80.0-98.0) fL MCH 29.0 (27.0-33.0) pg MCHC 36.7 H (31.0-35.0) g/dl RDW 13.5 (11.0-16.0) % Plt Count 140 L D (160-400) X10*3/uL MPV 9.0 L (9.4-12.3) fL Immature Gran % (Auto) 0.3 (0.0-0.4) % Neut % (Auto) 84.3 H (45-73) % Lymph % (Auto) 9.2 L (20-40) % [place] % (Auto) 6.1 (2-11) % Eos % (Auto) 0.0 (0-4) % Baso % (Auto) 0.1 (0-2) % Lymph # (Auto) 0.9 L (1.2-4.9) X10*3/uL [place] # (Auto) 0.6 (0.1-1.2) X10*3/uL Eos # (Auto) 0.0 (0.0-0.4) X10*3/uL Baso # (Auto) 0.0 (0.0-0.2) X10*3/uL Abs Immat Gran (auto) 0.03 (0.00-0.03) X10*3/uL Absolute Neuts (auto) 8.1 (2.0-8.3) x10*3/uL Absolute Nucleated RBC 0.000 (0.0-0.012) X10*3/uL Nucleated RBC % (auto) 0.0 (0.0-0.2) /100WBC Sodium 127 L (135-145) mmol/L Potassium 2.1 L* D (3.3-5.1) mmol/L Chloride 78 L (96-108) mmol/L Carbon Dioxide 27 (22-29) mmol/L Anion Gap 24 H (12-20) BUN 12 (9-16) mg/dL Creatinine 0.58 (0.5-1.4) mg/dL Estim Creat Clear Calc 108.0 Estimated GFR > 60 Random Glucose 142 H (60-115) mg/dL Calcium 8.5 (8.4-10.2) mg/dL Magnesium 2.0 (1.6-2.6) mg/dL Total Bilirubin 1.0 (0.0-1.0) mg/dL AST 67 H (5-31) U/L ALT 25 (0-31) U/L Alkaline Phosphatase 169 H (39-117) U/L Total Protein 8.2 H (6.5-8.0) g/dL Albumin 4.4 (3.5-5.0) g/dL Lipase 45 (8-78) U/L Urine Color Yellow Urine Appearance Cloudy Urine pH 6.5 (5.0-9.0) Ur Specific [place] 1.020 (1.005-1.025) Urine Protein 300 (3+) H (Neg-Trace) mg/dL Urine Glucose (UA) Negative (Negative) mg/dL Urine Ketones 15 (Negative) mg/dL Urine Blood Small (1+) H (Negative) Urine Nitrite Negative (Negative) Ur Leukocyte Esterase Small (1+) H (Negative) Urine RBC 0-2 (0-2) /HPF Urine WBC 11-20 H (0-5) /HPF Ur Squamous Epith Cells 6-10 (0-2) /HPF Urine Bacteria 3+ (None Seen) Hyaline Casts 3-5 (0-2) /LPF Urine Test NEGATIVE (NEGATIVE) Urine Opiates Screen Not Detected (Not Detect) Ur Buprenorphine Scrn Not Detected (Not Detect) ng/mL Ur Oxycodone Screen Not Detected (Not Detect) ng/mL Urine Methadone Screen Not Detected (Not Detect) ng/mL Urine Fentanyl Screen Not Detected (Not Detect) Ur Barbiturates Screen POSITIVE H (Not Detect) Ur Phencyclidine Scrn Not Detected (Not Detect) Ur Amphetamines Screen Not Detected (Not Detect) U Benzodiazepines Scrn Not Detected (Not Detect) Urine Cocaine Screen POSITIVE H (Not Detect) U Marijuana (THC) Screen Not Detected (Not Detect) Ethyl Alcohol 330 H* mg/dL Critical Care Time Critical Care Time Critical Care Time: Yes Total Critical Care Time: 30 Attestation: I Suzanna Rodarte PA-C have personally performed 30 minutes of critical care time not including lines and procedures Discharge Plan Discharge Clinical Impression: Metabolic acidosis, Acute hypokalemia Alcohol withdrawal Qualifiers: Complication of substance-induced condition: uncomplicated Qualified Code(s): F 10.930 - Alcohol use, unspecified with withdrawal, uncomplicated Patient Disposition: Admitted As Inpatient
[2025-03-27 22:10] LABS: Bacteria Urine 3+ (None Seen); RBC Urine 0-2 /HPF (0-2); UACC Culture Trigger YES
[2025-03-27] MEDS: levETIRAcetam in NaCl (iso-os) 1,000 MG/100 ML PIGGYBACK 400 MG IV (23:02)
[2025-03-27] MEDS: Thiamine HCL 100 MG in 0.9 % Sodium Chloride 100 ML 202 MG IV (23:20)
[2025-03-27] MEDS: PHENobarbitaL sodium 130 MG/ML IM ONCE 240 MG IM (23:20)
[2025-03-28] VITALS (8 sets, daily range): BP systolic 115–159; BP diastolic 57–103; PULSE 90–128; RESP 16–21; TEMP 36.4–37.1; O2SAT 96–100; BMI 21.1
--- NOTE | 2025-03-28 00:30 | P.HPHOSP_ITS ---
History of Present Illness Date of Service: 03/27/25 Attending physician on admission: Ranjan Garg Chief Complaint: seizures Sabine Barraza is a 34 years old woman with past medical history significant for epilepsy on Keppra, depression and alcohol abuse who was brought to the emergency department via EMS after she had an event of seizure while laying down in bed. Patient stated that this episode was witnessed by her boyfriend. She said that she has been taking her home medications including sertraline, Seroquel, topiramate and Keppra. She also takes hydroxyzine, potassium pills, multivitamins and folic acid. She mentioned that she has not been taking her naloxone. She drinks alcohol on and off for many years. She said that last time she drank alcohol was yesterday. According to patient she drinks beers but was not very specific about the quantities. She reports over symptoms such as restlessness, nausea and vomiting, abdominal discomfort, headache, discomfort with urination and constipation. Denied events of diarrhea, fever or chills. She denied illicit drug use. She vapes nicotine. In the ED, she was found to have hypertension and tachycardia. There is no fever or tachypnea. Blood workup showed no leukocytosis. Hemoglobin is 13.7 and platelets 140. No workup was remarkable for significant hypokalemia, 2.1 and hyponatremia 127. BUN creatinine are normal. Glucose 142. LFTs are remarkable for elevated AST and alk-phos. Bilirubin, lipase and ALT are normal. Urinalysis consistent with urinary tract infection. ECG (poor quality) showed sinus tachycardia, heart rate 125 beats per minute without obvious ischemic changes. ED tx: Ativan 2 mg p.o., ringer lactate 1 L bolus, KCl 40 mEq IV and 40 mEq p.o. X2, NS 1 L bolus, Keppra 1 g thiamine 100 mg IV, phenobarbital 240 mg IM Review of Systems 2 Review of Systems: All 12 systems were reviewed and normal except as noted in HPI. 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) Unable to assess alcohol history related to: Unable to respond Alcohol intake: current Alcohol intake frequency: a few times a week Alcohol type: hard liquor Comment: pt refused bed alarm Patient Tobacco Use Status: Current everyday Tobacco user Tobacco use type: Smokeless Tobacco e-Cigarette/Vaping Use: Currently Using Substance Use Type: Crack/Cocaine Advance Directives: No Advance Directives Information Provided: Yes service: No Meds Allergies Allergy/AdvReac Type Severity Reaction Status Date / Time Iodinated Contrast Media AdvReac Hives Verified 03/27/25 18:23 [Contrast Dye] Active Medications: Current Medications Acetaminophen (Acetaminophen 325 Mg Tablet) 650 mg PO Q6H PRN PRN Reason: Pain, Mild 1-3,fever,headache Calcium Carbonate (Calcium Carbonate 750 Mg Tab.Chew) 750 mg PO Q4H PRN PRN Reason: Heartburn Ceftriaxone Sodium (Ceftriaxone Sodium 1 Gm Vial) 1 gm IVPUSH Q24H ARTURO Enoxaparin Sodium (Enoxaparin Sodium 40 Mg/0.4 Ml Syringe) 40 mg SUBCUT Q24H ARTURO Dextrose/Sodium Chloride (D5ns) 1,000 mls @ 100 mls/hr IVCONT .Q10H ARTURO Thiamine HCl 100 mg/ Sodium (Chloride) 101 mls @ 202 mls/hr IV DAILY ARTURO Magnesium Hydroxide (Milk Of Magnesia 30 Ml Oral.Susp) 30 ml PO DAILY PRN PRN Reason: Constipation Pharmacy Consult (Consult Rx Etoh Phenob Im/Po) 1 each MISCELLANE ONCE PRN; Protocol PRN Reason: Consult order Phenobarbital (Phenobarbital 15 Mg Tablet) 45 mg PO BID [facility] Stop: 03/29/25 21:01 Phenobarbital (Phenobarbital 30 Mg Tablet) 30 mg PO BID ARTURO Stop: 03/31/25 21:01 Phenobarbital (Phenobarbital 15 Mg Tablet) 15 mg PO DAILY [facility] Stop: 04/02/25 09:01 Phenobarbital Sodium (Phenobarbital Sodium 130 Mg/Ml Vial Im Q3hx2) 180 mg IM Q3H ARTURO Stop: 03/28/25 05:01 Sodium Chloride (0.9 % Sodium Chloride Flush 3 Ml Syringe) 3 ml IVFLUSH QSHIFT [facility] Home Medications ?Medication ?Instructions ?Recorded ?Confirmed ?Last Taken ?Type sucralfate 1 gram tablet 1 g PO QID 06/19/24 01/24/25 01/24/25 History hydroxyzine HCl 25 mg tablet 50 mg PO DAILY Anxiety 08/29/24 03/28/25 01/24/25 History magnesium oxide 400 mg (241.3 mg 400 mg PO DAILY 08/29/24 01/24/25 01/24/25 History magnesium) tablet sertraline 100 mg tablet 100 mg PO DAILY 08/29/24 03/28/25 01/24/25 History quetiapine 50 mg tablet 50 mg PO BEDTIME insomnia 09/16/24 03/28/25 Unknown History topiramate 25 mg tablet 25 mg PO DAILY 03/28/25 03/28/25 Unknown History Physical Exam 2 Vital Signs and Narrative: Vital Signs: Last Vital Signs Temp 98.7 F 03/27/25 21:44 Pulse 116 H 03/27/25 21:44 Resp 18 03/27/25 21:44 BP 148/101 H 03/27/25 21:44 Pulse Ox 98 03/27/25 21:44 O2 Del Method Room Air 03/27/25 21:44 BMI result Body Mass Index 20.9 Constitutional - Somnolent, No apparent distress. Answer questions appropriately. Afebrile. HEENT - PERRL, EOMI. Normal sclerae. Dry oral mucosa. Heart - tachycardic, normal rate, no murmurs. Lungs - Normal lung expansion, Normal respiratory effort, No respiratory distress, CTA bilaterally Abdomen - NT / ND; +BS; No rebound or guarding Extremities - no calf tenderness bilaterally, no swelling Musculoskeletal - Normal inspection, normal ROM Skin - Warm/Dry. No jaundice. Neurological - Alert & oriented x3. No focal weakness grossly noted. No facial droop. Normal speech. Psychological - Depression affect Results Labs 03/27/25 18:32 03/27/25 18:32 Labs: Laboratory Results - last 24 hr 03/27/25 03/27/25 18:32 21:02 MCV 78.9 L MCH 29.0 MCHC 36.7 H RDW 13.5 Plt Count 140 L D MPV 9.0 L Immature Gran % (Auto) 0.3 Neut % (Auto) 84.3 H Lymph % (Auto) 9.2 L [place] % (Auto) 6.1 Eos % (Auto) 0.0 Baso % (Auto) 0.1 Lymph # (Auto) 0.9 L [place] # (Auto) 0.6 Eos # (Auto) 0.0 Baso # (Auto) 0.0 Abs Immat Gran (auto) 0.03 Absolute Neuts (auto) 8.1 Absolute Nucleated RBC 0.000 Nucleated RBC % (auto) 0.0 Anion Gap 24 H Estim Creat Clear Calc 108.0 Estimated GFR > 60 Random Glucose 142 H Calcium 8.5 Magnesium 2.0 Total Bilirubin 1.0 AST 67 H ALT 25 Alkaline Phosphatase 169 H Total Protein 8.2 H Albumin 4.4 Lipase 45 Urine Color Yellow Urine Appearance Cloudy Urine pH 6.5 Ur Specific [place] 1.020 Urine Protein 300 (3+) H Urine Glucose (UA) Negative Urine Ketones 15 Urine Blood Small (1+) H Urine Nitrite Negative Ur Leukocyte Esterase Small (1+) H Urine RBC 0-2 Urine WBC 11-20 H Ur Squamous Epith Cells 6-10 Urine Bacteria 3+ Hyaline Casts 3-5 Urine Test NEGATIVE Urine Opiates Screen Not Detected Ur Buprenorphine Scrn Not Detected Ur Oxycodone Screen Not Detected Urine Methadone Screen Not Detected Urine Fentanyl Screen Not Detected Ur Barbiturates Screen POSITIVE H Ur Phencyclidine Scrn Not Detected Ur Amphetamines Screen Not Detected U Benzodiazepines Scrn Not Detected Urine Cocaine Screen POSITIVE H U Marijuana (THC) Screen Not Detected Ethyl Alcohol 330 H* Assessment and Plan (1) Seizures: Status: Acute (2) Acute hypokalemia: Status: Acute (3) Elevated LFTs: Status: Acute (4) Alcohol withdrawal: Qualifiers: Complication of substance-induced condition: uncomplicated Qualified Code(s): F10.930 - Alcohol use, unspecified with withdrawal, uncomplicated Status: Acute Plan Sabine Barraza is a 34 y/o woman admitted with: * Seizure, likely secondary to alcohol abuse in the setting of epilepsy. Admit to hospitalist service. Telemetry. Seizure and fall precautions. Hold Keppra while patient receiving phenobarbital to above over-sedation. As the patient receive a loading of Keppra IV in the ED Keppra level were not obtained. Neurology consult. * Alcohol withdrawal symptoms/alcohol abuse. CIWA every 4 hours. Continue thiamine, multivitamins and folic acid. Phenobarbital protocol. Patient was advised to obtain from alcohol use. Social work/dependency case manager consult. * Mild thrombocytopenia, 140. No evidence of acute bleeding. Will monitor for now. * Abnormal LFT secondary to alcohol abuse: Elevated AST and alk-phos (normal total bilirubbin and ALT). Check INR. Alcohol abstinence. Continue to monitor for now. * Multiple electrolyte imbalances secondary to alcohol abuse and vomiting: Hyponatremia (around baseline 127), hypokalemia. Replete electrolytes as needed and IV hydration. Continue to monitor electrolytes. * Depression. Continue sertraline, topiramate and Seroquel. * Presumed UTI. Start empiric antibiotic therapy with ceftriaxone IV. Urine cultures -follow results. DVT prophylaxis: Lovenox (if platelets level < 100 will hold Lovenox). Code status: Full Patient will need hospitalization for at least 2 midnights for seizures, alcohol withdrawal symptoms and lytes imbalances treatment and managemen; patient will need close monitoring of her vital signs, electrolytes and antiseizures medications. Quality Stroke Does the patient have a stroke diagnosis?: No VTE Prior VTE?: No VTE Risk Level:: Medical - moderate - high VTE Device Contraindication: Treatment Not Indicated VTE Drug Contraindication: N/A - Med Ordered
[2025-03-28] MEDS: Dextrose 5 % and 0.9 % NaCl 1,000 ML 100 ML IVCONT ×2 (01:31→10:15)
[2025-03-28] MEDS: cefTRIAXone sodium 1 GM VIAL IVPUSH (01:32)
[2025-03-28 02:56] LABS: Potassium 3.2 mmol/L (3.3-5.1)
[2025-03-28] MEDS: PHENobarbitaL sodium 130 MG/ML VIAL IM Q3Hx2 180 MG IM ×2 (03:05→06:14)
[2025-03-28 05:57] LABS: MANUAL DIFF FLAG NO
[2025-03-28 06:05] LABS: INTERNATIONAL NORM RATIO 1.3 (0.9-1.1); Prothrombin Time 14.6 SEC (10.9-12.4)
[2025-03-28 06:14] LABS: Basophils Percent Auto 0.1 % (0-2); Hematocrit 32.5 % (37.0-47.0); Hemoglobin 11.3 g/dl (12.0-16.0); Imm Gran Abs Auto 0.04 X10*3/uL (0.00-0.03); Imm Gran Pct Auto 0.4 % (0.0-0.4); Lymphocytes Absolute Auto 1.7 X10*3/uL (1.2-4.9); Lymphocytes Percent Auto 18.6 % (20-40); Mean Corpuscular HGB Conc 34.8 g/dl (31.0-35.0); Mean Corpuscular Hemoglobin 28.5 pg (27.0-33.0); Mean Corpuscular Volume 81.9 fL (80.0-98.0); Mean Platelet Volume 10.5 fL (9.4-12.3); Monocytes Absolute Auto 0.6 X10*3/uL (0.1-1.2); Monocytes Percent Auto 6.6 % (2-11); NRBC Pct Auto 0.4 /100WBC (0.0-0.2); Neutrophils Absolute Auto 6.7 x10*3/uL (2.0-8.3); Neutrophils Percent Auto 74.3 % (45-73); Red Blood Count 3.97 X10*6/uL (4.20-5.50); Red Cell Distribution Width 13.4 % (11.0-16.0)
[2025-03-28 06:22] LABS: Anion Gap 17 (12-20); Blood Urea Nitrogen 4 mg/dL (9-16); Calcium 7.1 mg/dL (8.4-10.2); Carbon Dioxide 27 mmol/L (22-29); Chloride 82 mmol/L (96-108); Creatinine Clr Calc Pharmacy 136.3; Estimated Glomerular Filt Rate > 60; Glucose Random 139 mg/dL (60-115); Magnesium 1.1 mg/dL (1.6-2.6); Potassium 2.6 mmol/L (3.3-5.1); Sodium 123 mmol/L (135-145)
[2025-03-28 06:29] LABS: Platelet Count 82 X10*3/uL (160-400)
[2025-03-28] MEDS: Magnesium Sulfate/H2O 2 GM/50 ML PIGGYBACK IV ×2 (06:33→09:29)
[2025-03-28] MEDS: Potassium Chloride Packet 20 MEQ PACKET 40 MEQ PO (06:33)
[2025-03-28] MEDS: PHENobarbitaL 15 MG TABLET 45 MG PO ×2 (08:50→20:55)
[2025-03-28] MEDS: Potassium Chloride ER 20 MEQ TAB.ER.PRT 40 MEQ PO (08:50)
[2025-03-28] MEDS: Folic Acid 1 MG TABLET PO (08:50)
[2025-03-28] MEDS: Thiamine HCL 100 MG in 0.9 % Sodium Chloride 100 ML 202 MG IV (08:50)
[2025-03-28] MEDS: Topiramate 25 MG TABLET PO (08:50)
[2025-03-28] MEDS: Sertraline HCL 100 MG TABLET PO (10:07)
[2025-03-28 10:54] LABS: Potassium Urine Random 21.3 mmol/L
--- NOTE | 2025-03-28 11:30 | P.CONNP_ITS ---
History of Present Illness Reason for Consult Consult date: 03/28/25 Chief Complaint Chief complaint: Alcohol withdrawal History of Present Illness Narrative: Pt is a 34 y/o female with a medical history of alcohol abuse, epilepsy on keppra, depression. She has a hystory of hyponatremia, hypokalemia and admission for alcohol withdrawal. presented evening of 03/27 with complaints of witnessed seizure while laying in bed, on presentation sodium 129, potassium 2.4. patient has been receiving IVF and sodium has decreased to 123, potassium is 2.6 this a.m., magnesium 1.1. Nephrology consulted for electrolyte abnormalities. patient is lethargic at bedside. states she takes her medications at home, including hydroxyzine, seroquel, topamax and sertraline. She also takes keppra for seizure prevention. states she thinks she drank a sleeve of nips yesterday before coming into the hospital. States she drinks some days, other days she does not, generally drinks nips- she is unable to specify how much alcohol she drinks on an average day. she states she has tried to stop drinking alcohol multiple times. She states she does eat regularly, but is unable to specify if she is eating nutritious meals. she states she drinks a lot of water, but is unable to quantify her average daily intake of water. she denies pain, shortness of breath, chest pain, abdominal pain. Review of Systems Review of Systems Yes unobtainable due to endotracheal tube Constitutional: Reports fatigue Cardiovascular: Denies chest pain, Denies leg edema and Denies dyspnea Respiratory: Denies dyspnea Gastrointestinal: Denies abdominal pain, Denies diarrhea, Denies nausea and Denies vomiting Genitourinary: Denies hematuria, Denies difficulty voiding, Denies dysuria and Denies flank pain Musculoskeletal: Denies muscle cramps Skin/Breast: Denies rash Comments: reports boyfriend witnessed a seizure at home before hospitalization Endocrine: Reports fatigue PMFSH Past Medical History Medical History (Updated 03/28/25 @ 12:48 by Shameka Smith, SANIA, [employer]) Hypomagnesemia Acute hyponatremia Acute urinary retention Acute hypokalemia Epileptic seizure Alcohol withdrawal Seizure Acute dehydration Acute hypokalemia Acute alcohol intoxication Alcohol use disorder, severe, dependence Acute respiratory failure Acute hypokalemia Acute hyponatremia Alcohol withdrawal Status epilepticus Withdrawal seizures Depression Alcoholism Social History Social History Household Members: Significant Other Household Members Other:: bf, mom Housing: Apartment Do you presently have visiting nurse or other home services: No Unable to assess alcohol history related to: Unable to respond Alcohol intake: current Alcohol intake frequency: 3 or more drinks per day Alcohol type: hard liquor Comment: pt refused bed alarm Patient Tobacco Use Status: Tobacco use Unknown Tobacco use type: Smokeless Tobacco Smoked in Last 30 Days: No e-Cigarette/Vaping Use: Currently Using Patient Interested in Nicotine Replacement: No Use of substances other than those prescribed or required for medical reasons: Yes Substance Use Type: Crack/Cocaine and Marijuana Substance Use Frequency: Chronic Longstanding Last Used Substance: Unknown Have you been hit, kicked, punched, or otherwise hurt by someone within the past year? If so, by whom?: No Do you feel safe in your current relationship?: Yes Is there a partner from a previous relationship who is making you feel unsafe now?: No Are you made to feel afraid or neglected: No Spiritual Healthcare Practices: unknown Advance Directives: No Advance Directives Information Provided: Yes Do you have a plan to hurt others: No Plan Recently lost weight without trying: Unsure How much weight loss: Unsure Eating poorly because of decreased appetite: No Nutrition screen score: 4 Nutrition Risks: Poor intake 0-25% >4 days Patient : No : No Poor oral hygiene: No service: No Meds Allergies Allergy/AdvReac Type Severity Reaction Status Date / Time Iodinated Contrast Media AdvReac Hives Verified 03/27/25 18:23 [Contrast Dye] Active Medications: Current Medications Acetaminophen (Acetaminophen 325 Mg Tablet) 650 mg PO Q6H PRN PRN Reason: Pain, Mild 1-3,fever,headache Calcium Carbonate (Calcium Carbonate 750 Mg Tab.Chew) 750 mg PO Q4H PRN PRN Reason: Heartburn Ceftriaxone Sodium (Ceftriaxone Sodium 1 Gm Vial) 1 gm IVPUSH Q24H [facility] Last Admin: 03/28/25 01:32 Dose: 1 gm Folic Acid (Folic Acid 1 Mg Tablet) 1 mg PO DAILY [facility] Last Admin: 03/28/25 08:50 Dose: 1 mg Dextrose/Sodium Chloride (D5ns) 1,000 mls @ 100 mls/hr IVCONT .Q10H [facility] Last Admin: 03/28/25 10:15 Dose: 100 mls/hr Thiamine HCl 100 mg/ Sodium (Chloride) 101 mls @ 202 mls/hr IV DAILY [facility] Last Infusion: 03/28/25 09:29 Dose: Infused Magnesium Hydroxide (Milk Of Magnesia 30 Ml Oral.Susp) 30 ml PO DAILY PRN PRN Reason: Constipation Pharmacy Consult (Consult Rx Etoh Phenob Im/Po) 1 each MISCELLANE ONCE PRN; Protocol PRN Reason: Consult order Phenobarbital (Phenobarbital 15 Mg Tablet) 45 mg PO BID [facility] Stop: 03/29/25 21:01 Last Admin: 03/28/25 08:50 Dose: 45 mg Phenobarbital (Phenobarbital 30 Mg Tablet) 30 mg PO BID [facility] Stop: 03/31/25 21:01 Phenobarbital (Phenobarbital 15 Mg Tablet) 15 mg PO DAILY [facility] Stop: 04/02/25 09:01 Quetiapine Fumarate (Quetiapine Fumarate 50 Mg Tablet) 50 mg PO BEDTIME [facility] Sertraline HCl (Sertraline Hcl 100 Mg Tablet) 100 mg PO DAILY [facility] Last Admin: 03/28/25 10:07 Dose: 100 mg Sodium Chloride (0.9 % Sodium Chloride Flush 3 Ml Syringe) 3 ml IVFLUSH QSHIFT [facility] Last Admin: 03/28/25 07:13 Dose: Not Given Topiramate (Topiramate 25 Mg Tablet) 25 mg PO DAILY [facility] Last Admin: 03/28/25 08:50 Dose: 25 mg Home Medications ?Medication ?Instructions ?Recorded ?Confirmed ?Last Taken ?Type sucralfate 1 gram tablet 1 g PO QID 06/19/24 01/24/25 01/24/25 History hydroxyzine HCl 25 mg tablet 50 mg PO DAILY Anxiety 08/29/24 03/28/25 01/24/25 History magnesium oxide 400 mg (241.3 mg 400 mg PO DAILY 08/29/24 01/24/25 01/24/25 History magnesium) tablet sertraline 100 mg tablet 100 mg PO DAILY 08/29/24 03/28/25 01/24/25 History quetiapine 50 mg tablet 50 mg PO BEDTIME insomnia 09/16/24 03/28/25 Unknown History multivitamin (One Daily 1 tab PO DAILY 03/28/25 Unknown History Multivitamin tablet) omeprazole 20 mg capsule,delayed 20 mg PO DAILY 03/28/25 Unknown History release topiramate 25 mg tablet 25 mg PO DAILY 03/28/25 03/28/25 Unknown History Physical Exam Vital Signs: Last Vital Signs Temp 98.4 F 03/28/25 12:00 Pulse 106 H 03/28/25 12:00 Resp 19 03/28/25 12:00 BP 121/85 03/28/25 12:00 Pulse Ox 98 03/28/25 12:00 O2 Del Method Room Air 03/28/25 12:00 BMI result Body Mass Index 20.9 Const General: no acute distress, awake and lethargic Orientation/consciousness: lethargic Resp Effort & Inspection: normal respiratory effort and able to speak in complete sentences Auscultation: clear to auscultation bilaterally Cardio Rate: tachycardic Rhythm: regular rhythm Heart sounds: S1 normal heart sound present and S2 normal heart sound present GI Palpation (GI): Soft to palpation and nontender Skin Rashes: no rashes Extrem General: No edema Results Lab Results 03/28/25 05:52 03/28/25 11:21 Lab results: Chemistry 03/27/25 03/28/25 03/28/25 18:32 02:27 05:52 Sodium 127 L 123 L Potassium 2.1 L* D 3.2 L D 2.6 L* Carbon Dioxide 27 27 BUN 12 4 L Creatinine 0.58 0.46 L Calcium 8.5 7.1 L D Phosphorus 03/28/25 03/28/25 11:21 11:21 Sodium 123 L 122 L Potassium 3.0 L Carbon Dioxide 28 BUN < 3 L Creatinine 0.44 L Calcium 7.5 L Phosphorus 0.9 L* Hematology 03/27/25 03/28/25 18:32 05:52 WBC 9.6 9.0 Hgb 13.7 11.3 L Plt Count 140 L D 82 L D Urinalysis 03/27/25 21:02 Urine Color Yellow Urine Appearance Cloudy Urine pH 6.5 Ur Specific [place] 1.020 Urine Protein 300 (3+) H Urine Glucose (UA) Negative Urine Ketones 15 Urine Blood Small (1+) H Urine Nitrite Negative Ur Leukocyte Esterase Small (1+) H Urine RBC 0-2 Urine WBC 11-20 H Ur Squamous Epith Cells 6-10 Hyaline Casts 3-5 Urine Studies 03/27/25 21:02 Urine Osmolality 529 Assessment and Plan (1) Hypokalemia: Status: Acute (2) Hyponatremia: Status: Acute (3) Hypomagnesemia: Status: Acute Plan Mulitple electrolyte abnormalities- hyponatremia- worsening. 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 Sertraline, topamax, and seroquel may also be contributing, recommend consulting with psychiatry about holding and/or tapering down medications. recommend discontinue IVF, as this may be contributing to worsening hyponatremia. Recommend fluid restriction of 1.2L. hypokalemia and hypocalcemia likely secondary to hypomagnesemia from alcohol abuse. Recommend magnesium repletion and alcohol cessation- discussed alcohol cessation with patient. will check phosphorous levels and urine sodium, urine osmolality will continue to follow. discussed with Dr Daija Friend Date of Service Date of Service: 03/28/25
[2025-03-28 11:40] LABS: Osmolality Urine 529 mosm/kg (373-1093)
[2025-03-28 11:48] LABS: Anion Gap 12 (12-20); Blood Urea Nitrogen < 3 mg/dL (9-16); Calcium 7.5 mg/dL (8.4-10.2); Carbon Dioxide 28 mmol/L (22-29); Chloride 86 mmol/L (96-108); Creatinine Clr Calc Pharmacy 142.5; Estimated Glomerular Filt Rate > 60; Glucose Random 139 mg/dL (60-115); Magnesium 2.6 mg/dL (1.6-2.6); Sodium 123 mmol/L (135-145)
[2025-03-28 11:53] LABS: Magnesium 2.7 mg/dL (1.6-2.6); Phosphorus 0.9 mg/dL (2.7-4.5)
[2025-03-28 12:07] LABS: Sodium 122 mmol/L (135-145)
[2025-03-28 12:45] LABS: Osmolality Urine 245 mosm/kg (373-1093)
--- NOTE | 2025-03-28 14:35 | PHA.MEDREC ---
Addendum entered by Amrit Ayoub PharmD 03/28/25 14:52: reviewed Original Note: Pharmacy Consult ? Medication Reconciliation Pharmacy has completed the medication reconciliation. Spoke to patient to confirm med list. Patient states she is no longer taking Naltrexone 50 mg, Sucralfate 1 g, and Vitamin B-1 100 mg. Patient states she hasn't taken any medication in over a week.
[2025-03-28] MEDS: Sodium Chloride Tab 1 GM TABLET PO (15:03)
[2025-03-28] MEDS: 0.9 % Sodium Chloride Flush 3 ML SYRINGE IVFLUSH ×2 (15:06→20:44)
--- NOTE | 2025-03-28 15:49 | MHC.CM.PN ---
CM attempted to see pt. twice, am and pm today, she was sleeping soundly, did not wake to voice, will complete assessment tomorrow.
--- NOTE | 2025-03-28 17:54 | P.PNIM_ITS ---
Subjective Subjective Date of Service: 03/28/25 Interval History: hyponatremia ,hypokalemia Review of Systems Patient seems anxious and tremulous. Denies nausea vomiting or abd pain Review of Systems: Yes all other systems are reviewed and are negative Physical Exam 2 Vital Signs: Vital Signs: Last Vital Signs Temp 97.5 F 03/28/25 15:16 Pulse 96 03/28/25 15:16 Resp 18 03/28/25 15:16 BP 115/74 03/28/25 15:16 Pulse Ox 100 03/28/25 15:16 O2 Del Method Room Air 03/28/25 15:16 BMI result Body Mass Index 21.1 Appearance: Alert.? Oriented X3.? cvs: rrr, [id number] . res: clear to auscultation ,no rhonchii or wheezing abd: no rebound or guarding ,nt, bs present. ext pulses present , no cyanosis . neuro: axo3 , nonfocal. Objective Data Active Medications Acetaminophen (Acetaminophen 325 Mg Tablet) 650 mg PO Q6H PRN PRN Reason: Pain, Mild 1-3,fever,headache Calcium Carbonate (Calcium Carbonate 750 Mg Tab.Chew) 750 mg PO Q4H PRN PRN Reason: Heartburn Ceftriaxone Sodium (Ceftriaxone Sodium 1 Gm Vial) 1 gm IVPUSH Q24H [facility] Last Admin: 03/28/25 01:32 Dose: 1 gm Documented By: GIULIANO Folic Acid (Folic Acid 1 Mg Tablet) 1 mg PO DAILY [facility] Last Admin: 03/28/25 08:50 Dose: 1 mg Documented By: ANABELLE Thiamine HCl 100 mg/ Sodium (Chloride) 101 mls @ 202 mls/hr IV DAILY [facility] Last Infusion: 03/28/25 09:29 Dose: Infused Documented By: ANABELLE Magnesium Hydroxide (Milk Of Magnesia 30 Ml Oral.Susp) 30 ml PO DAILY PRN PRN Reason: Constipation Pharmacy Consult (Consult Rx Etoh Phenob Im/Po) 1 each MISCELLANE ONCE PRN; Protocol PRN Reason: Consult order Phenobarbital (Phenobarbital 15 Mg Tablet) 45 mg PO BID [facility] Stop: 03/29/25 21:01 Last Admin: 03/28/25 08:50 Dose: 45 mg Documented By: ANABELLE Phenobarbital (Phenobarbital 30 Mg Tablet) 30 mg PO BID [facility] Stop: 03/31/25 21:01 Phenobarbital (Phenobarbital 15 Mg Tablet) 15 mg PO DAILY [facility] Stop: 04/02/25 09:01 Potassium Phos/Sodium Phos (Sodium,Potassium Phosphates Powd.Pack) 1 packet PO QID [facility] Quetiapine Fumarate (Quetiapine Fumarate 50 Mg Tablet) 50 mg PO BEDTIME [facility] Sertraline HCl (Sertraline Hcl 100 Mg Tablet) 100 mg PO DAILY [facility] Last Admin: 03/28/25 10:07 Dose: 100 mg Documented By: ANABELLE Sodium Chloride (0.9 % Sodium Chloride Flush 3 Ml Syringe) 3 ml IVFLUSH QSHIFT [facility] Last Admin: 03/28/25 15:06 Dose: 3 ml Documented By: JEANNE Sodium Chloride (Sodium Chloride Tab 1 Gm Tablet) 1 gm PO BID [facility] Last Admin: 03/28/25 15:03 Dose: 1 gm Documented By: JEANNE Sodium Chloride (Sodium Chloride Tab 1 Gm Tablet) 2 gm PO TID [facility] Topiramate (Topiramate 25 Mg Tablet) 25 mg PO DAILY [facility] Last Admin: 03/28/25 08:50 Dose: 25 mg Documented By: ANABELLE Labs 03/28/25 05:52 03/28/25 11:21 Labs: Laboratory Results - last 24 hr 03/27/25 03/27/25 03/28/25 18:32 21:02 05:52 MCV 78.9 L 81.9 MCH 29.0 28.5 MCHC 36.7 H 34.8 RDW 13.5 13.4 Plt Count 140 L D 82 L D MPV 9.0 L 10.5 Immature Gran % (Auto) 0.3 0.4 Neut % (Auto) 84.3 H 74.3 H Lymph % (Auto) 9.2 L 18.6 L Clinch % (Auto) 6.1 6.6 Eos % (Auto) 0.0 0.0 Baso % (Auto) 0.1 0.1 Lymph # (Auto) 0.9 L 1.7 Clinch # (Auto) 0.6 0.6 Eos # (Auto) 0.0 0.0 Baso # (Auto) 0.0 0.0 Abs Immat Gran (auto) 0.03 0.04 H Absolute Neuts (auto) 8.1 6.7 Absolute Nucleated RBC 0.000 0.040 H Nucleated RBC % (auto) 0.0 0.4 H PT 14.6 H D INR 1.3 H Anion Gap 24 H 17 Estim Creat Clear Calc 108.0 136.3 Estimated GFR > 60 > 60 Random Glucose 142 H 139 H Uric Acid Calcium 8.5 7.1 L D Phosphorus Magnesium 2.0 1.1 L* Total Bilirubin 1.0 AST 67 H ALT 25 Alkaline Phosphatase 169 H Total Protein 8.2 H Albumin 4.4 Lipase 45 Urine Color Yellow Urine Appearance Cloudy Urine pH 6.5 Ur Specific [facility] 1.020 Urine Protein 300 (3+) H Urine Glucose (UA) Negative Urine Ketones 15 Urine Blood Small (1+) H Urine Nitrite Negative Ur Leukocyte Esterase Small (1+) H Urine RBC 0-2 Urine WBC 11-20 H Ur Squamous Epith Cells 6-10 Urine Bacteria 3+ Hyaline Casts 3-5 Urine Osmolality 529 Ur Random Sodium 40.0 Ur Random Potassium 21.3 Ur Random Chloride 49.0 Urine Test NEGATIVE Urine Opiates Screen Not Detected Ur Buprenorphine Scrn Not Detected Ur Oxycodone Screen Not Detected Urine Methadone Screen Not Detected Urine Fentanyl Screen Not Detected Ur Barbiturates Screen POSITIVE H Ur Phencyclidine Scrn Not Detected Ur Amphetamines Screen Not Detected U Benzodiazepines Scrn Not Detected Urine Cocaine Screen POSITIVE H U Marijuana (THC) Screen Not Detected Ethyl Alcohol 330 H* 03/28/25 03/28/25 03/28/25 11:21 11:21 12:15 MCV MCH MCHC RDW Plt Count MPV Immature Gran % (Auto) Neut % (Auto) Lymph % (Auto) Clinch % (Auto) Eos % (Auto) Baso % (Auto) Lymph # (Auto) Clinch # (Auto) Eos # (Auto) Baso # (Auto) Abs Immat Gran (auto) Absolute Neuts (auto) Absolute Nucleated RBC Nucleated RBC % (auto) PT INR Anion Gap 12 Estim Creat Clear Calc 142.5 Estimated GFR > 60 Random Glucose 139 H Uric Acid 1.0 L Calcium 7.5 L Phosphorus 0.9 L* Magnesium 2.7 H 2.6 Total Bilirubin AST ALT Alkaline Phosphatase Total Protein Albumin Lipase Urine Color Urine Appearance Urine pH Ur Specific [facility] Urine Protein Urine Glucose (UA) Urine Ketones Urine Blood Urine Nitrite Ur Leukocyte Esterase Urine RBC Urine WBC Ur Squamous Epith Cells Urine Bacteria Hyaline Casts Urine Osmolality 245 L Ur Random Sodium 91.0 Ur Random Potassium Ur Random Chloride Urine Test Urine Opiates Screen Ur Buprenorphine Scrn Ur Oxycodone Screen Urine Methadone Screen Urine Fentanyl Screen Ur Barbiturates Screen Ur Phencyclidine Scrn Ur Amphetamines Screen U Benzodiazepines Scrn Urine Cocaine Screen U Marijuana (THC) Screen Ethyl Alcohol Microbiology Microbiology Results: Microbiology 03/27/25 Unknown Urine Culture - Preliminary Urine clean catch - Clean Catch Midstream No growth to date. Assessment and Plan (1) Hypomagnesemia: Status: Acute (2) Hyponatremia: Status: Acute (3) Seizures: Status: Acute (4) Acute hypokalemia: Status: Acute Plan 34 y/o woman admitted with: Seizure, likely secondary to alcohol abuse in the setting of epilepsy. Telemetry. Seizure and fall precautions. Hold Keppra while patient receiving phenobarbital to above over-sedation. As the patient receive a loading of Keppra IV in the ED Keppra level were not obtained. Neurology consult. Alcohol withdrawal symptoms/alcohol abuse. CIWA every 4 hours. Continue thiamine, multivitamins and folic acid. Phenobarbital protocol. Patient was advised to obtain from alcohol use. Social work/medical case manager consult. Mild thrombocytopenia: Platelet trending down Monitor closely Abnormal LFT secondary to alcohol abuse: Elevated AST and alk-phos (normal total bilirubbin and ALT). Check INR. Alcohol abstinence. Continue to monitor for now. Multiple electrolyte imbalances secondary to alcohol abuse and vomiting: Hyponatremia 122(around baseline 127), hypokalemia. Electrolyte repleted, for hyponatremia workup ordered-hold IV fluid, fluid restriction 1.5 L, sodium tablets-electrolytes closely. Nephrology following Depression. Continue sertraline, topiramate and Seroquel. Presumed UTI. Start empiric antibiotic therapy with ceftriaxone IV. Urine cultures -follow results. DVT prophylaxis: mechanical devices (if platelets level < 100 will hold Lovenox). Code status: Full Ongoing need hospitalization for at least 2 midnights for seizures, alcohol withdrawal symptoms and lytes imbalances treatment and management; patient will need close monitoring of her vital signs, electrolytes and antiseizures medication Quality Stroke Does the patient have a stroke diagnosis?: No VTE Prior VTE?: No VTE Risk Level:: Medical - moderate - high VTE Device Contraindication: Treatment Not Indicated VTE Drug Contraindication: N/A - Med Ordered
--- NOTE | 2025-03-28 17:56 | PM.NEUROCN ---
History of Present Illness Data of Consult Service Date: 03/28/25 Primary Care Provider: Rupert Flores MD [facility] Reason for consult: Seizures This is a 34 years old woman with h/o seizure disorder on Keppra 750 bid, depression and alcohol abuse who was brought to the emergency department via EMS after she had an event of seizure while laying down in bed. Patient stated that this episode was witnessed by her boyfriend. She said that she has been taking her home medications including sertraline, Seroquel, topiramate and Keppra. She also takes hydroxyzine, potassium pills, multivitamins and folic acid. She mentioned that she has not been taking her naloxone. She drinks alcohol on and off for many years. She said that last time she drank alcohol was yesterday. According to patient she drinks beers but was not very specific about the quantities. She says that the Sz may be from alcohol. Oliva snot see a neurologist. She denied illicit drug use. 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-) Hypomagnesemia Acute hyponatremia Acute urinary retention Acute hypokalemia Epileptic seizure Alcohol withdrawal Seizure Acute dehydration Acute hypokalemia Acute alcohol intoxication Alcohol use disorder, severe, dependence Acute respiratory failure Acute hypokalemia Acute hyponatremia Alcohol withdrawal Status epilepticus Withdrawal seizures Depression Alcoholism Social History Social History Household Members: Significant Other Household Members Other:: bf, mom Housing: Apartment Do you presently have visiting nurse or other home services: No Unable to assess alcohol history related to: Unable to respond Alcohol intake: current Alcohol intake frequency: 3 or more drinks per day Alcohol type: hard liquor Comment: pt refused bed alarm Patient Tobacco Use Status: Tobacco use Unknown Tobacco use type: Smokeless Tobacco e-Cigarette/Vaping Use: Currently Using Substance Use Type: Crack/Cocaine and Marijuana service: No Meds Allergies Allergy/AdvReac Type Severity Reaction Status Date / Time Iodinated Contrast Media AdvReac Hives Verified 03/27/25 18:23 [Contrast Dye] Active Medications: Current Medications Acetaminophen (Acetaminophen 325 Mg Tablet) 650 mg PO Q6H PRN PRN Reason: Pain, Mild 1-3,fever,headache Calcium Carbonate (Calcium Carbonate 750 Mg Tab.Chew) 750 mg PO Q4H PRN PRN Reason: Heartburn Ceftriaxone Sodium (Ceftriaxone Sodium 1 Gm Vial) 1 gm IVPUSH Q24H [facility] Last Admin: 03/28/25 01:32 Dose: 1 gm Folic Acid (Folic Acid 1 Mg Tablet) 1 mg PO DAILY [facility] Last Admin: 03/28/25 08:50 Dose: 1 mg Thiamine HCl 100 mg/ Sodium (Chloride) 101 mls @ 202 mls/hr IV DAILY [facility] Last Infusion: 03/28/25 09:29 Dose: Infused Magnesium Hydroxide (Milk Of Magnesia 30 Ml Oral.Susp) 30 ml PO DAILY PRN PRN Reason: Constipation Pharmacy Consult (Consult Rx Etoh Phenob Im/Po) 1 each MISCELLANE ONCE PRN; Protocol PRN Reason: Consult order Phenobarbital (Phenobarbital 15 Mg Tablet) 45 mg PO BID [facility] Stop: 03/29/25 21:01 Last Admin: 03/28/25 08:50 Dose: 45 mg Phenobarbital (Phenobarbital 30 Mg Tablet) 30 mg PO BID [facility] Stop: 03/31/25 21:01 Phenobarbital (Phenobarbital 15 Mg Tablet) 15 mg PO DAILY [facility] Stop: 04/02/25 09:01 Potassium Phos/Sodium Phos (Sodium,Potassium Phosphates Powd.Pack) 1 packet PO QID [facility] Quetiapine Fumarate (Quetiapine Fumarate 50 Mg Tablet) 50 mg PO BEDTIME [facility] Sertraline HCl (Sertraline Hcl 100 Mg Tablet) 100 mg PO DAILY [facility] Last Admin: 03/28/25 10:07 Dose: 100 mg Sodium Chloride (0.9 % Sodium Chloride Flush 3 Ml Syringe) 3 ml IVFLUSH QSHIFT [facility] Last Admin: 03/28/25 15:06 Dose: 3 ml Sodium Chloride (Sodium Chloride Tab 1 Gm Tablet) 1 gm PO BID [facility] Last Admin: 03/28/25 15:03 Dose: 1 gm Sodium Chloride (Sodium Chloride Tab 1 Gm Tablet) 2 gm PO TID [facility] Topiramate (Topiramate 25 Mg Tablet) 25 mg PO DAILY [facility] Last Admin: 03/28/25 08:50 Dose: 25 mg Home Medications ?Medication ?Instructions ?Recorded ?Confirmed ?Last Taken ?Type hydroxyzine HCl 25 mg tablet 50 mg PO DAILY Anxiety 08/29/24 03/28/25 01/24/25 History magnesium oxide 400 mg (241.3 mg 400 mg PO DAILY 08/29/24 03/28/25 01/24/25 History magnesium) tablet sertraline 100 mg tablet 100 mg PO DAILY 08/29/24 03/28/25 01/24/25 History quetiapine 50 mg tablet 50 mg PO BEDTIME insomnia 09/16/24 03/28/25 Unknown History multivitamin (One Daily 1 tab PO DAILY 03/28/25 03/28/25 Unknown History Multivitamin tablet) omeprazole 20 mg capsule,delayed 20 mg PO DAILY 03/28/25 03/28/25 Unknown History release Physical Exam Vital Signs: Vital Signs: Last Vital Signs Temp 97.5 F 03/28/25 15:16 Pulse 96 03/28/25 15:16 Resp 18 03/28/25 15:16 BP 115/74 03/28/25 15:16 Pulse Ox 100 03/28/25 15:16 O2 Del Method Room Air 03/28/25 15:16 BMI result Body Mass Index 21.1 Neuro: Other: Lethargic and slow in responses. Non focal exam Results Labs 03/28/25 05:52 03/28/25 11:21 Labs: Short CBC 03/27/25 03/28/25 Range/Units 18:32 05:52 WBC 9.6 9.0 (4.8-10.8) X10*3/uL Hgb 13.7 11.3 L (12.0-16.0) g/dl Hct 37.3 32.5 L (37.0-47.0) % Plt Count 140 L D 82 L D (160-400) X10*3/uL BMP 03/27/25 03/28/25 03/28/25 18:32 02:27 05:52 Sodium 127 L 123 L Potassium 2.1 L* D 3.2 L D 2.6 L* Chloride 78 L 82 L Carbon Dioxide 27 27 BUN 12 4 L Creatinine 0.58 0.46 L Calcium 8.5 7.1 L D 03/28/25 03/28/25 11:21 11:21 Sodium 123 L 122 L Potassium 3.0 L Chloride 86 L Carbon Dioxide 28 BUN < 3 L Creatinine 0.44 L Calcium 7.5 L Liver Function 03/27/25 Range/Units 18:32 Total Bilirubin 1.0 (0.0-1.0) mg/dL AST 67 H (5-31) U/L ALT 25 (0-31) U/L Alkaline Phosphatase 169 H (39-117) U/L Albumin 4.4 (3.5-5.0) g/dL Urine 03/27/25 Range/Units 21:02 Urine Color Yellow Urine Appearance Cloudy Urine pH 6.5 (5.0-9.0) Ur Specific [place] 1.020 (1.005-1.025) Urine Protein 300 (3+) H (Neg-Trace) mg/dL Urine Glucose (UA) Negative (Negative) mg/dL Microbiology Microbiology Results: Microbiology 03/27/25 Unknown Urine clean catch - Clean Catch Midstream Urine Culture - Preliminary No growth to date. Assessment and Plan (1) Seizures: Status: Acute Unclear etiology. Possibly alcohol related. Question compliance. MRI in Oct [address] on this admission negative Recom: EEG. Check Keppra levels for compliance. Increase Keppra to 1gm bid. Alcohol counselling Procedures Date of Service Date of Service: 03/28/25
[2025-03-28] MEDS: Potassium Chloride ER 20 MEQ TAB.ER.PRT PO (18:04)
[2025-03-28] MEDS: Sodium,Potassium Phosphates POWD.PACK 1 PACKET PO ×2 (18:04→20:42)
[2025-03-28] MEDS: Sodium Chloride Tab 1 GM TABLET 2 GM PO ×2 (18:04→20:42)
[2025-03-28 18:47] LABS: Anion Gap 16 (12-20); Blood Urea Nitrogen < 3 mg/dL (9-16); Calcium 7.6 mg/dL (8.4-10.2); Carbon Dioxide 24 mmol/L (22-29); Chloride 85 mmol/L (96-108); Creatinine Clr Calc Pharmacy 142.5; Estimated Glomerular Filt Rate > 60; Glucose Random 140 mg/dL (60-115); Potassium 3.5 mmol/L (3.3-5.1); Sodium 121 mmol/L (135-145)
[2025-03-28 23:54] LABS: Anion Gap 13 (12-20); Blood Urea Nitrogen < 3 mg/dL (9-16); Calcium 7.8 mg/dL (8.4-10.2); Carbon Dioxide 24 mmol/L (22-29); Chloride 88 mmol/L (96-108); Estimated Glomerular Filt Rate > 60; Glucose Random 98 mg/dL (60-115); Potassium 3.2 mmol/L (3.3-5.1); Sodium 122 mmol/L (135-145)
[2025-03-29] MEDS: Potassium Chloride Packet 20 MEQ PACKET 40 MEQ PO (01:40)
[2025-03-29] MEDS: cefTRIAXone sodium 1 GM VIAL IVPUSH (01:40)
[2025-03-29 03:53] VITALS: BP 133/88; PULSE 94; RESP 16; TEMP 37.1; O2SAT 98
[2025-03-29] MEDS: Omeprazole 20 MG CAPSULE.DR PO (05:54)
[2025-03-29 07:01] VITALS: BP 106/70; PULSE 94; RESP 18; TEMP 36.4; O2SAT 99
--- NOTE | 2025-03-29 08:58 | MHC.CM.PN ---
CM met with Patient at bedside. 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 Home vs Recovery Team intervention r/t ETOH is the tentative plan and CM has initiated and will follow for dc planning. PCP is Dr. Flores and her Parents will transport to home.
[2025-03-29] MEDS: Thiamine HCL 100 MG in 0.9 % Sodium Chloride 100 ML 202 MG IV (09:11)
[2025-03-29 09:12] LABS: MANUAL DIFF FLAG NO
[2025-03-29] MEDS: 0.9 % Sodium Chloride Flush 3 ML SYRINGE IVFLUSH ×3 (09:12→21:40)
[2025-03-29] MEDS: Sodium Chloride Tab 1 GM TABLET 2 GM PO ×3 (09:13→21:39)
[2025-03-29] MEDS: Multivitamin TABLET 1 TAB PO (09:13)
[2025-03-29] MEDS: Sodium,Potassium Phosphates POWD.PACK 1 PACKET PO ×4 (09:14→21:39)
[2025-03-29] MEDS: Folic Acid 1 MG TABLET PO (09:14)
[2025-03-29] MEDS: PHENobarbitaL 15 MG TABLET 45 MG PO ×2 (09:14→21:39)
[2025-03-29] MEDS: Topiramate 25 MG TABLET PO (09:14)
[2025-03-29] MEDS: Acetaminophen 325 MG TABLET 650 MG PO ×2 (09:14→21:41)
[2025-03-29] MEDS: Sertraline HCL 100 MG TABLET PO (09:14)
[2025-03-29 09:21] LABS: Basophils Percent Auto 0.4 % (0-2); Eosinophils Absolute Auto 0.1 X10*3/uL (0.0-0.4); Eosinophils Percent Auto 0.8 % (0-4); Hematocrit 38.4 % (37.0-47.0); Hemoglobin 13.7 g/dl (12.0-16.0); Imm Gran Abs Auto 0.09 X10*3/uL (0.00-0.03); Imm Gran Pct Auto 1.1 % (0.0-0.4); Mean Corpuscular HGB Conc 35.7 g/dl (31.0-35.0); Mean Corpuscular Hemoglobin 29.2 pg (27.0-33.0); Mean Corpuscular Volume 81.9 fL (80.0-98.0); Mean Platelet Volume 10.9 fL (9.4-12.3); Monocytes Absolute Auto 0.6 X10*3/uL (0.1-1.2); NRBC Pct Auto 0.5 /100WBC (0.0-0.2); Neutrophils Absolute Auto 5.1 x10*3/uL (2.0-8.3); Neutrophils Percent Auto 64.7 % (45-73); Platelet Count 81 X10*3/uL (160-400); Red Blood Count 4.69 X10*6/uL (4.20-5.50); Red Cell Distribution Width 13.3 % (11.0-16.0); White Blood Count 7.9 X10*3/uL (4.8-10.8)
[2025-03-29 09:33] LABS: Anion Gap 13 (12-20); Blood Urea Nitrogen 4 mg/dL (9-16); Calcium 8.7 mg/dL (8.4-10.2); Carbon Dioxide 24 mmol/L (22-29); Chloride 90 mmol/L (96-108); Creatinine Clr Calc Pharmacy 130.6; Estimated Glomerular Filt Rate > 60; Glucose Random 90 mg/dL (60-115); Magnesium 1.8 mg/dL (1.6-2.6); Phosphorus 1.5 mg/dL (2.7-4.5); Potassium 3.8 mmol/L (3.3-5.1); Sodium 123 mmol/L (135-145)
--- NOTE | 2025-03-29 10:45 | PM.PNNEP ---
Subjective Subjective Date of Service: 03/29/25 Interval history: 34 y/o with alcohol use disorder, depression on multiple psychiatric medications being followed for hyponatremia. sodium 123 this a.m. (up from 121 03/28 evening) patient on a fluid restriction, salt tabs 2gm BID - IVF discontinued yesterday she states at bedside she feels like crap but denies chest pain, shortness of breath, tremors/cramping. states she is interested in alcohol cessation- father at bedside shares concerns about her ability to stop drinking without detox facility help as she has tried many times before. Physical Exam Vital Signs: Vital Signs: Last Vital Signs Temp 97.6 F 03/29/25 11:08 Pulse 98 03/29/25 11:08 Resp 16 03/29/25 11:08 BP 128/75 03/29/25 11:08 Pulse Ox 96 03/29/25 11:08 O2 Del Method Room Air 03/29/25 11:08 BMI result Body Mass Index 21.1 Const: General: no acute distress, awake and lethargic Orientation/consciousness: lethargic Resp: Effort & Inspection: normal respiratory effort and able to speak in complete sentences Auscultation: clear to auscultation bilaterally Cardio: Rate: regular rate Rhythm: regular rhythm Heart sounds: S1 normal heart sound present and S2 normal heart sound present GI: Palpation (GI): Soft to palpation and nontender Skin: Rashes: no rashes Neuro: Other: Lethargic and slow in responses. Non focal exam Extrem: General: No edema Objective Data Labs 03/29/25 08:43 03/29/25 08:43 Labs: Laboratory Results - last 24 hr 03/27/25 03/28/25 03/28/25 21:02 11:21 11:21 WBC RBC Hgb Hct MCV MCH MCHC RDW Plt Count MPV Immature Gran % (Auto) Neut % (Auto) Lymph % (Auto) [place] % (Auto) Eos % (Auto) Baso % (Auto) Lymph # (Auto) [place] # (Auto) Eos # (Auto) Baso # (Auto) Abs Immat Gran (auto) Absolute Neuts (auto) Absolute Nucleated RBC Nucleated RBC % (auto) Sodium 123 L 122 L Potassium 3.0 L Chloride 86 L Carbon Dioxide 28 Anion Gap 12 BUN < 3 L Creatinine 0.44 L Estim Creat Clear Calc 142.5 Estimated GFR > 60 Random Glucose 139 H Uric Acid 1.0 L Calcium 7.5 L Phosphorus 0.9 L* Magnesium 2.7 H Urine Osmolality 529 Ur Random Sodium 03/28/25 03/28/25 03/28/25 11:21 12:15 18:15 WBC RBC Hgb Hct MCV MCH MCHC RDW Plt Count MPV Immature Gran % (Auto) Neut % (Auto) Lymph % (Auto) [place] % (Auto) Eos % (Auto) Baso % (Auto) Lymph # (Auto) [place] # (Auto) Eos # (Auto) Baso # (Auto) Abs Immat Gran (auto) Absolute Neuts (auto) Absolute Nucleated RBC Nucleated RBC % (auto) Sodium 121 L Potassium 3.5 Chloride 85 L Carbon Dioxide 24 Anion Gap 16 BUN < 3 L Creatinine 0.44 L Estim Creat Clear Calc 142.5 Estimated GFR > 60 Random Glucose 140 H Uric Acid Calcium 7.6 L Phosphorus Magnesium 2.6 2.0 Urine Osmolality 245 L Ur Random Sodium 91.0 03/28/25 03/29/25 23:19 08:43 WBC 7.9 RBC 4.69 Hgb 13.7 D Hct 38.4 MCV 81.9 MCH 29.2 MCHC 35.7 H RDW 13.3 Plt Count 81 L MPV 10.9 Immature Gran % (Auto) 1.1 H Neut % (Auto) 64.7 Lymph % (Auto) 25.0 [place] % (Auto) 8.0 Eos % (Auto) 0.8 Baso % (Auto) 0.4 Lymph # (Auto) 2.0 [place] # (Auto) 0.6 Eos # (Auto) 0.1 Baso # (Auto) 0.0 Abs Immat Gran (auto) 0.09 H Absolute Neuts (auto) 5.1 Absolute Nucleated RBC 0.040 H Nucleated RBC % (auto) 0.5 H Sodium 122 L 123 L Potassium 3.2 L 3.8 Chloride 88 L 90 L Carbon Dioxide 24 24 Anion Gap 13 13 BUN < 3 L 4 L Creatinine 0.38 L 0.48 L Estim Creat Clear Calc 165.0 130.6 Estimated GFR > 60 > 60 Random Glucose 98 90 Uric Acid Calcium 7.8 L 8.7 D Phosphorus 1.5 L Magnesium 1.8 Urine Osmolality Ur Random Sodium Microbiology Microbiology Results: Microbiology 03/28/25 01:31 Blood - Venous Blood Culture - Preliminary No growth after 24 hours. 03/28/25 01:15 Blood - Venous Blood Culture - Preliminary No growth after 24 hours. 03/27/25 Unknown Urine clean catch - Clean Catch Midstream Urine Culture - Preliminary No growth to date. Procedures Date of Service Date of Service: 03/29/25 Assessment & Plan Assessment and plan (1) Acute hyponatremia: Status: Inactive (2) Acute hypokalemia: Status: Inactive Plan [facility] electrolyte abnormalities- hyponatremia- some improvement. 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 Sertraline, topamax, and seroquel may also be contributing, recommend consulting with psychiatry about holding and/or tapering down medications. Recommend 1L fluid restriction. recommend continuing sodium tablets recommend adding 30gm TID urea powder recommend slow correction of sodium increasing by no more than 10mmol/24hrs or 0.5mmol/L/hr hypokalemia and hypocalcemia have improved with magnesium replacement recommend alcohol detox facility upon discharge if patient is willing. Discussed the importance of alcohol cessation in avoiding dangerous drops in her sodium in the future, as well as for her overall health- discussed risks of serious morbidity/mortality if she continues to drink alcohol to excess. will continue to follow. discussed with Dr Choe Time Spent With Patient Time: Total time managing care of this patient today ____ minutes. Progress Note: Quality Stroke Does the patient have a stroke diagnosis?: No
--- NOTE | 2025-03-29 10:48 | HO.ADDICT_ITS ---
History of Present Illness Date of Service: 03/29/2025 Chief Complaint: Alcohol withdrawal Reason for Consult: AUD Sources of Information: patient interviewed and chart reviewed HPI Narrative: Patient is a 34 year old female with history of alcohol use disorder and withdrawal, presented to [facility] ED following seizure at home. In ED found to be in acute alcohol withdrawal, with electrolyte abnormalities and subsequently medically admitted. Patient known to t/w via previous admissions related to alcohol use. Seen in room 443. She is awake, alert, appearing weak and reports feeling awful . She states that following most recent admission 2 months ago, she started drinking 2 weeks later. Reports drinking approx a sleeve of nips daily. She has not been engaged in any treatment for AUD. Currently CIWA scores 5 --pheno taper in place Labs reviewed, Na 123, Mg 1.8, 3.8 Medical Evaluation Reviewed: Yes Review of Systems Constitutional: Reports as per HPI, Reports difficulty sleeping, Reports lethargy, Reports malaise and Reports weakness Gastrointestinal: Denies diarrhea and Denies nausea Reports weakness Psychiatric: Reports anxiety Diagnostics Vital Signs (24Hr): Vital Signs - 24 hr 03/28/25 12:00 03/28/25 14:06 03/28/25 15:16 Temperature 98.4 F 98.3 F 97.5 F Pulse Rate 106 H 92 96 Respiratory Rate 19 18 18 Blood Pressure 121/85 135/88 115/74 Pulse Oximetry 98 98 100 Oxygen Delivery Method Room Air Room Air Room Air 03/28/25 19:39 03/28/25 23:42 03/29/25 03:53 Temperature 98.8 F 97.7 F 98.7 F Pulse Rate 100 90 94 Respiratory Rate 18 16 16 Blood Pressure 125/80 116/57 L 133/88 Pulse Oximetry 97 97 98 Oxygen Delivery Method Room Air Room Air Room Air 03/29/25 07:01 Temperature 97.6 F Pulse Rate 94 Respiratory Rate 18 Blood Pressure 106/70 Pulse Oximetry 99 Oxygen Delivery Method Room Air BMI result Body Mass Index 21.1 Labs 03/29/25 08:43 03/29/25 08:43 Labs: Laboratory Results - last 48 hr 03/27/25 03/27/25 03/28/25 18:32 21:02 02:27 WBC 9.6 RBC 4.73 Hgb 13.7 Hct 37.3 MCV 78.9 L MCH 29.0 MCHC 36.7 H RDW 13.5 Plt Count 140 L D MPV 9.0 L Immature Gran % (Auto) 0.3 Neut % (Auto) 84.3 H Lymph % (Auto) 9.2 L [place] % (Auto) 6.1 Eos % (Auto) 0.0 Baso % (Auto) 0.1 Lymph # (Auto) 0.9 L [place] # (Auto) 0.6 Eos # (Auto) 0.0 Baso # (Auto) 0.0 Abs Immat Gran (auto) 0.03 Absolute Neuts (auto) 8.1 Absolute Nucleated RBC 0.000 Nucleated RBC % (auto) 0.0 PT INR Sodium 127 L Potassium 2.1 L* D 3.2 L D Chloride 78 L Carbon Dioxide 27 Anion Gap 24 H BUN 12 Creatinine 0.58 Estim Creat Clear Calc 108.0 Estimated GFR > 60 Random Glucose 142 H Uric Acid Calcium 8.5 Phosphorus Magnesium 2.0 Total Bilirubin 1.0 AST 67 H ALT 25 Alkaline Phosphatase 169 H Total Protein 8.2 H Albumin 4.4 Lipase 45 Urine Color Yellow Urine Appearance Cloudy Urine pH 6.5 Ur Specific [place] 1.020 Urine Protein 300 (3+) H Urine Glucose (UA) Negative Urine Ketones 15 Urine Blood Small (1+) H Urine Nitrite Negative Ur Leukocyte Esterase Small (1+) H Urine RBC 0-2 Urine WBC 11-20 H Ur Squamous Epith Cells 6-10 Urine Bacteria 3+ Hyaline Casts 3-5 Urine Osmolality 529 Ur Random Sodium 40.0 Ur Random Potassium 21.3 Ur Random Chloride 49.0 Urine Test NEGATIVE Urine Opiates Screen Not Detected Ur Buprenorphine Scrn Not Detected Ur Oxycodone Screen Not Detected Urine Methadone Screen Not Detected Urine Fentanyl Screen Not Detected Ur Barbiturates Screen POSITIVE H Ur Phencyclidine Scrn Not Detected Ur Amphetamines Screen Not Detected U Benzodiazepines Scrn Not Detected Urine Cocaine Screen POSITIVE H U Marijuana (THC) Screen Not Detected Ethyl Alcohol 330 H* 03/28/25 03/28/25 03/28/25 05:52 11:21 11:21 WBC 9.0 RBC 3.97 L Hgb 11.3 L Hct 32.5 L MCV 81.9 MCH 28.5 MCHC 34.8 RDW 13.4 Plt Count 82 L D MPV 10.5 Immature Gran % (Auto) 0.4 Neut % (Auto) 74.3 H Lymph % (Auto) 18.6 L [place] % (Auto) 6.6 Eos % (Auto) 0.0 Baso % (Auto) 0.1 Lymph # (Auto) 1.7 [place] # (Auto) 0.6 Eos # (Auto) 0.0 Baso # (Auto) 0.0 Abs Immat Gran (auto) 0.04 H Absolute Neuts (auto) 6.7 Absolute Nucleated RBC 0.040 H Nucleated RBC % (auto) 0.4 H PT 14.6 H D INR 1.3 H Sodium 123 L 123 L 122 L Potassium 2.6 L* 3.0 L Chloride 82 L 86 L Carbon Dioxide 27 28 Anion Gap 17 12 BUN 4 L < 3 L Creatinine 0.46 L 0.44 L Estim Creat Clear Calc 136.3 142.5 Estimated GFR > 60 > 60 Random Glucose 139 H 139 H Uric Acid 1.0 L Calcium 7.1 L D 7.5 L Phosphorus 0.9 L* Magnesium 1.1 L* 2.7 H Total Bilirubin AST ALT Alkaline Phosphatase Total Protein Albumin Lipase Urine Color Urine Appearance Urine pH Ur Specific [place] Urine Protein Urine Glucose (UA) Urine Ketones Urine Blood Urine Nitrite Ur Leukocyte Esterase Urine RBC Urine WBC Ur Squamous Epith Cells Urine Bacteria Hyaline Casts Urine Osmolality Ur Random Sodium Ur Random Potassium Ur Random Chloride Urine Test Urine Opiates Screen Ur Buprenorphine Scrn Ur Oxycodone Screen Urine Methadone Screen Urine Fentanyl Screen Ur Barbiturates Screen Ur Phencyclidine Scrn Ur Amphetamines Screen U Benzodiazepines Scrn Urine Cocaine Screen U Marijuana (THC) Screen Ethyl Alcohol 03/28/25 03/28/25 03/28/25 11:21 12:15 18:15 WBC RBC Hgb Hct MCV MCH MCHC RDW Plt Count MPV Immature Gran % (Auto) Neut % (Auto) Lymph % (Auto) [place] % (Auto) Eos % (Auto) Baso % (Auto) Lymph # (Auto) [place] # (Auto) Eos # (Auto) Baso # (Auto) Abs Immat Gran (auto) Absolute Neuts (auto) Absolute Nucleated RBC Nucleated RBC % (auto) PT INR Sodium 121 L Potassium 3.5 Chloride 85 L Carbon Dioxide 24 Anion Gap 16 BUN < 3 L Creatinine 0.44 L Estim Creat Clear Calc 142.5 Estimated GFR > 60 Random Glucose 140 H Uric Acid Calcium 7.6 L Phosphorus Magnesium 2.6 2.0 Total Bilirubin AST ALT Alkaline Phosphatase Total Protein Albumin Lipase Urine Color Urine Appearance Urine pH Ur Specific [place] Urine Protein Urine Glucose (UA) Urine Ketones Urine Blood Urine Nitrite Ur Leukocyte Esterase Urine RBC Urine WBC Ur Squamous Epith Cells Urine Bacteria Hyaline Casts Urine Osmolality 245 L Ur Random Sodium 91.0 Ur Random Potassium Ur Random Chloride Urine Test Urine Opiates Screen Ur Buprenorphine Scrn Ur Oxycodone Screen Urine Methadone Screen Urine Fentanyl Screen Ur Barbiturates Screen Ur Phencyclidine Scrn Ur Amphetamines Screen U Benzodiazepines Scrn Urine Cocaine Screen U Marijuana (THC) Screen Ethyl Alcohol 03/28/25 03/29/25 23:19 08:43 WBC 7.9 RBC 4.69 Hgb 13.7 D Hct 38.4 MCV 81.9 MCH 29.2 MCHC 35.7 H RDW 13.3 Plt Count 81 L MPV 10.9 Immature Gran % (Auto) 1.1 H Neut % (Auto) 64.7 Lymph % (Auto) 25.0 [place] % (Auto) 8.0 Eos % (Auto) 0.8 Baso % (Auto) 0.4 Lymph # (Auto) 2.0 [place] # (Auto) 0.6 Eos # (Auto) 0.1 Baso # (Auto) 0.0 Abs Immat Gran (auto) 0.09 H Absolute Neuts (auto) 5.1 Absolute Nucleated RBC 0.040 H Nucleated RBC % (auto) 0.5 H PT INR Sodium 122 L 123 L Potassium 3.2 L 3.8 Chloride 88 L 90 L Carbon Dioxide 24 24 Anion Gap 13 13 BUN < 3 L 4 L Creatinine 0.38 L 0.48 L Estim Creat Clear Calc 165.0 130.6 Estimated GFR > 60 > 60 Random Glucose 98 90 Uric Acid Calcium 7.8 L 8.7 D Phosphorus 1.5 L Magnesium 1.8 Total Bilirubin AST ALT Alkaline Phosphatase Total Protein Albumin Lipase Urine Color Urine Appearance Urine pH Ur Specific [place] Urine Protein Urine Glucose (UA) Urine Ketones Urine Blood Urine Nitrite Ur Leukocyte Esterase Urine RBC Urine WBC Ur Squamous Epith Cells Urine Bacteria Hyaline Casts Urine Osmolality Ur Random Sodium Ur Random Potassium Ur Random Chloride Urine Test Urine Opiates Screen Ur Buprenorphine Scrn Ur Oxycodone Screen Urine Methadone Screen Urine Fentanyl Screen Ur Barbiturates Screen Ur Phencyclidine Scrn Ur Amphetamines Screen U Benzodiazepines Scrn Urine Cocaine Screen U Marijuana (THC) Screen Ethyl Alcohol Mental Status Exam Mental Status Exam Level of Consciousness: Awake and Appropriate Patient Behavior: Appropriate and Guarded Affect Description: Blunted Speech Pattern: Clear Hallucinations: None Thought Content: positive for Intact Judgement: Fair Medications Medications Current Medications Acetaminophen (Acetaminophen 325 Mg Tablet) 650 mg PO Q6H PRN PRN Reason: Pain, Mild 1-3,fever,headache Last Admin: 03/29/25 09:14 Dose: 650 mg Calcium Carbonate (Calcium Carbonate 750 Mg Tab.Chew) 750 mg PO Q4H PRN PRN Reason: Heartburn Ceftriaxone Sodium (Ceftriaxone Sodium 1 Gm Vial) 1 gm IVPUSH Q24H [facility] Last Admin: 03/29/25 01:40 Dose: 1 gm Folic Acid (Folic Acid 1 Mg Tablet) 1 mg PO DAILY [facility] Last Admin: 03/29/25 09:14 Dose: 1 mg Thiamine HCl 100 mg/ Sodium (Chloride) 101 mls @ 202 mls/hr IV DAILY [facility] Last Infusion: 03/29/25 09:53 Dose: Infused Magnesium Hydroxide (Milk Of Magnesia 30 Ml Oral.Susp) 30 ml PO DAILY PRN PRN Reason: Constipation Multivitamins/Vitamin C (Multivitamin Tablet) 1 tab PO DAILY [facility] Last Admin: 03/29/25 09:13 Dose: 1 tab Omeprazole (Omeprazole 20 Mg Capsule.Dr) 20 mg PO DAILY@0630 [facility] Last Admin: 03/29/25 05:54 Dose: 20 mg Pharmacy Consult (Consult Rx Etoh Phenob Im/Po) 1 each MISCELLANE ONCE PRN; Protocol PRN Reason: Consult order Phenobarbital (Phenobarbital 15 Mg Tablet) 45 mg PO BID [facility] Stop: 03/29/25 21:01 Last Admin: 03/29/25 09:14 Dose: 45 mg Phenobarbital (Phenobarbital 30 Mg Tablet) 30 mg PO BID [facility] Stop: 03/31/25 21:01 Phenobarbital (Phenobarbital 15 Mg Tablet) 15 mg PO DAILY [facility] Stop: 04/02/25 09:01 Potassium Phos/Sodium Phos (Sodium,Potassium Phosphates Powd.Pack) 1 packet PO QID [facility] Last Admin: 03/29/25 09:14 Dose: 1 packet Quetiapine Fumarate (Quetiapine Fumarate 50 Mg Tablet) 50 mg PO BEDTIME [facility] Last Admin: 03/28/25 20:44 Dose: Not Given Sertraline HCl (Sertraline Hcl 100 Mg Tablet) 100 mg PO DAILY [facility] Last Admin: 03/29/25 09:14 Dose: 100 mg Sodium Chloride (0.9 % Sodium Chloride Flush 3 Ml Syringe) 3 ml IVFLUSH QSHIFT [facility] Last Admin: 03/29/25 09:12 Dose: 3 ml Sodium Chloride (Sodium Chloride Tab 1 Gm Tablet) 2 gm PO TID [facility] Last Admin: 03/29/25 09:13 Dose: 2 gm Topiramate (Topiramate 25 Mg Tablet) 25 mg PO DAILY [facility] Last Admin: 03/29/25 09:14 Dose: 25 mg Urea (Urea 15 Gm Powder) 30 gm PO TID [facility] Allergies Allergies Allergy/AdvReac Type Severity Reaction Status Date / Time Iodinated Contrast Media AdvReac Hives Verified 03/27/25 18:23 [Contrast Dye] Assessment & Plan Assessment & Plan (1) Alcohol use disorder, severe, dependence: Status: Acute Code(s): F10.20 - Alcohol dependence, uncomplicated Assessment and Plan: * withdrawal managed with phenobarbital taper --continue thiamine * Discussed RUSTY--reports that Naltrexone was helpful in reducing alcohol use--would like to restart Naltrexone --will send rx prior to discharge * Will continue to follow Total time managing care of this patient today ___35_ minutes. [facility] Past Medical History Medical History (Updated 03/29/25 @ 10:50 by Jamila Cardenas CNP) Alcohol use disorder, severe, dependence Hypomagnesemia Acute hyponatremia Acute urinary retention Acute hypokalemia Epileptic seizure Alcohol withdrawal Seizure Acute dehydration Acute hypokalemia Acute alcohol intoxication Acute respiratory failure Acute hypokalemia Acute hyponatremia Alcohol withdrawal Status epilepticus Withdrawal seizures Depression Alcoholism Social History Social History Household Members: Significant Other Household Members Other:: bf, mom Housing: Apartment Do you presently have visiting nurse or other home services: No Unable to assess alcohol history related to: Unable to respond Alcohol intake: current Alcohol intake frequency: 3 or more drinks per day Alcohol type: hard liquor Comment: pt refused bed alarm Patient Tobacco Use Status: Tobacco use Unknown Tobacco use type: Smokeless Tobacco e-Cigarette/Vaping Use: Currently Using Substance Use Type: Crack/Cocaine and Marijuana service: No
[2025-03-29 11:08] VITALS: BP 128/75; PULSE 98; RESP 16; TEMP 36.4; O2SAT 96
[2025-03-29] MEDS: Melatonin 3 MG TABLET 6 MG PO (11:50)
[2025-03-29] MEDS: Urea 15 GM POWDER 30 GM PO ×3 (11:50→21:38)
[2025-03-29 15:15] LABS: Anion Gap 9 (12-20); Blood Urea Nitrogen 44 mg/dL (9-16); Calcium 8.4 mg/dL (8.4-10.2); Carbon Dioxide 25 mmol/L (22-29); Chloride 91 mmol/L (96-108); Creatinine Clr Calc Pharmacy 142.5; Estimated Glomerular Filt Rate > 60; Glucose Random 99 mg/dL (60-115); Potassium 3.2 mmol/L (3.3-5.1); Sodium 122 mmol/L (135-145)
[2025-03-29 15:18] VITALS: BP 126/92; PULSE 104; RESP 18; TEMP 36.4; O2SAT 99
--- NOTE | 2025-03-29 16:03 | P.PNIM_ITS ---
Subjective Subjective Date of Service: 03/29/25 Interval History: Has hyponatremia As well as hypokalemia Review of Systems Mild anxious and tremulous. no seizures Denies nausea vomiting or abd pain Physical Exam 2 Vital Signs: Vital Signs: Last Vital Signs Temp 97.6 F 03/29/25 15:18 Pulse 104 H 03/29/25 15:18 Resp 18 03/29/25 15:18 BP 126/92 H 03/29/25 15:18 Pulse Ox 99 03/29/25 15:18 O2 Del Method Room Air 03/29/25 15:18 BMI result Body Mass Index 21.1 Appearance: Alert.? Oriented X3.? cvs: rrr, [id number] . res: clear to auscultation ,no rhonchii or wheezing abd: no rebound or guarding ,nt, bs present. ext pulses present , no cyanosis . neuro: axo3 , nonfocal. Objective Data Active Medications Acetaminophen (Acetaminophen 325 Mg Tablet) 650 mg PO Q6H PRN PRN Reason: Pain, Mild 1-3,fever,headache Last Admin: 03/29/25 09:14 Dose: 650 mg Documented By: MICHELLE Calcium Carbonate (Calcium Carbonate 750 Mg Tab.Chew) 750 mg PO Q4H PRN PRN Reason: Heartburn Ceftriaxone Sodium (Ceftriaxone Sodium 1 Gm Vial) 1 gm IVPUSH Q24H [facility] Last Admin: 03/29/25 01:40 Dose: 1 gm Documented By: LISA Folic Acid (Folic Acid 1 Mg Tablet) 1 mg PO DAILY [facility] Last Admin: 03/29/25 09:14 Dose: 1 mg Documented By: MICHELLE Magnesium Hydroxide (Milk Of Magnesia 30 Ml Oral.Susp) 30 ml PO DAILY PRN PRN Reason: Constipation Multivitamins/Vitamin C (Multivitamin Tablet) 1 tab PO DAILY [facility] Last Admin: 03/29/25 09:13 Dose: 1 tab Documented By: MICHELLE Omeprazole (Omeprazole 20 Mg Capsule.) 20 mg PO DAILY@0630 [facility] Last Admin: 03/29/25 05:54 Dose: 20 mg Documented By: LISA Pharmacy Consult (Consult Rx Etoh Phenob Im/Po) 1 each MISCELLANE ONCE PRN; Protocol PRN Reason: Consult order Phenobarbital (Phenobarbital 15 Mg Tablet) 45 mg PO BID [facility] Stop: 03/29/25 21:01 Last Admin: 03/29/25 09:14 Dose: 45 mg Documented By: MICHELLE Phenobarbital (Phenobarbital 30 Mg Tablet) 30 mg PO BID [facility] Stop: 03/31/25 21:01 Phenobarbital (Phenobarbital 15 Mg Tablet) 15 mg PO DAILY [facility] Stop: 04/02/25 09:01 Potassium Phos/Sodium Phos (Sodium,Potassium Phosphates Powd.Pack) 1 packet PO QID [facility] Last Admin: 03/29/25 15:05 Dose: 1 packet Documented By: MICHELLE Quetiapine Fumarate (Quetiapine Fumarate 50 Mg Tablet) 50 mg PO BEDTIME [facility] Last Admin: 03/28/25 20:44 Dose: Not Given Documented By: LISA Non-Admin Reason: Patient Asleep Sertraline HCl (Sertraline Hcl 100 Mg Tablet) 100 mg PO DAILY [facility] Last Admin: 03/29/25 09:14 Dose: 100 mg Documented By: MICHELLE Sodium Chloride (0.9 % Sodium Chloride Flush 3 Ml Syringe) [facility] Admin: 03/29/25 11:53 Dose: 3 ml Documented By: MICHELLE Sodium Chloride (Sodium Chloride Tab 1 Gm Tablet) 2 gm PO TID [facility] Last Admin: 03/29/25 15:05 Dose: 2 gm Documented By: MICHELLE Thiamine HCl (Thiamine Hcl 100 Mg Tablet) 100 mg PO DAILY [facility] Topiramate (Topiramate 25 Mg Tablet) 25 mg PO DAILY [facility] Last Admin: 03/29/25 09:14 Dose: 25 mg Documented By: MICHELLE Urea (Urea 15 Gm Powder) 30 gm PO TID [facility] Last Admin: 03/29/25 15:05 Dose: 30 gm Documented By: MICHELLE Labs 03/29/25 08:43 03/29/25 14:52 Labs: Laboratory Results - last 24 hr 03/28/25 03/28/25 03/28/25 11:21 18:15 23:19 MCV MCH MCHC RDW Plt Count MPV Immature Gran % (Auto) Neut % (Auto) Lymph % (Auto) [place] % (Auto) Eos % (Auto) Baso % (Auto) Lymph # (Auto) [place] # (Auto) Eos # (Auto) Baso # (Auto) Abs Immat Gran (auto) Absolute Neuts (auto) Absolute Nucleated RBC Nucleated RBC % (auto) Anion Gap 16 13 Estim Creat Clear Calc 142.5 165.0 Estimated GFR > 60 > 60 Random Glucose 140 H 98 Uric Acid 1.0 L Calcium 7.6 L 7.8 L Phosphorus Magnesium 2.0 03/29/25 03/29/25 08:43 14:52 MCV 81.9 MCH 29.2 MCHC 35.7 H RDW 13.3 Plt Count 81 L MPV 10.9 Immature Gran % (Auto) 1.1 H Neut % (Auto) 64.7 Lymph % (Auto) 25.0 [place] % (Auto) 8.0 Eos % (Auto) 0.8 Baso % (Auto) 0.4 Lymph # (Auto) 2.0 [place] # (Auto) 0.6 Eos # (Auto) 0.1 Baso # (Auto) 0.0 Abs Immat Gran (auto) 0.09 H Absolute Neuts (auto) 5.1 Absolute Nucleated RBC 0.040 H Nucleated RBC % (auto) 0.5 H Anion Gap 13 9 L Estim Creat Clear Calc 130.6 142.5 Estimated GFR > 60 > 60 Random Glucose 90 99 Uric Acid Calcium 8.7 D 8.4 Phosphorus 1.5 L Magnesium 1.8 Microbiology Microbiology Results: Microbiology 03/27/25 Unknown Urine Culture - Final Urine clean catch - Clean Catch Midstream 03/28/25 01:31 Blood Culture - Preliminary Blood - Venous No growth after 24 hours. 03/28/25 01:15 Blood Culture - Preliminary Blood - Venous No growth after 24 hours. Assessment and Plan (1) Hypomagnesemia: Status: Acute (2) Hyponatremia: Status: Acute (3) Seizures: Status: Acute (4) Acute hypokalemia: Status: Acute Plan 34 y/o woman admitted with: Seizure, likely secondary to alcohol abuse in the setting of epilepsy. Telemetry. Seizure and fall precautions. neuro recomended to adjust keppra currently patient is also on phenobarbital( so will continue home dose keppra ) check keppra levels added eeg Alcohol withdrawal symptoms/alcohol abuse. CIWA around 3. Continue thiamine, multivitamins and folic acid. Phenobarbital protocol. Patient was advised to obtain from alcohol use. Social work/field nurse case manager consult. Mild thrombocytopenia: Platelet trending down Monitor closely Abnormal LFT secondary to alcohol abuse: Elevated AST and alk-phos (normal total bilirubbin and ALT). Check INR. Alcohol abstinence. Continue to monitor for now. Multiple electrolyte imbalances secondary to alcohol abuse and vomiting: Hyponatremia 122(around baseline 127), hypokalemia. Electrolyte repleted, for hyponatremia workup ordered-hold IV fluid, fluid restriction 1.5 L, sodium tablets and urea Nephrology following Depression. Continue sertraline, topiramate and Seroquel. Presumed UTI. Start empiric antibiotic therapy with ceftriaxone IV. Urine cultures -follow results. DVT prophylaxis: mechanical devices (if platelets level < 100 will hold Lovenox). Code status: Full Ongoing need hospitalization for at least 2 midnights for seizures, alcohol withdrawal symptoms and lytes imbalances treatment and management; patient will need close monitoring of her vital signs, electrolytes and antiseizures medication Quality Stroke Does the patient have a stroke diagnosis?: No VTE Prior VTE?: No VTE Risk Level:: Medical - moderate - high VTE Device Contraindication: Treatment Not Indicated VTE Drug Contraindication: N/A - Med Ordered
[2025-03-29] MEDS: Potassium Chloride ER 20 MEQ TAB.ER.PRT PO (16:31)
[2025-03-29 19:33] VITALS: BP 131/85; PULSE 95; RESP 18; TEMP 36.7; O2SAT 97
[2025-03-29 19:42] LABS: Anion Gap 16 (12-20); Blood Urea Nitrogen 57 mg/dL (9-16); Calcium 8.7 mg/dL (8.4-10.2); Carbon Dioxide 23 mmol/L (22-29); Chloride 90 mmol/L (96-108); Creatinine Clr Calc Pharmacy 127.9; Estimated Glomerular Filt Rate > 60; Glucose Random 86 mg/dL (60-115); Potassium 3.3 mmol/L (3.3-5.1); Sodium 126 mmol/L (135-145)
[2025-03-29] MEDS: levETIRAcetam 500 MG TABLET 750 MG PO (21:39)
[2025-03-29] MEDS: QUEtiapine Fumarate 50 MG TABLET PO (21:39)
[2025-03-29 23:34] VITALS: BP 102/65; PULSE 94; RESP 18; TEMP 36.2; O2SAT 97
[2025-03-30 00:11] LABS: Magnesium 1.4 mg/dL (1.6-2.6); Potassium 3.2 mmol/L (3.3-5.1); Sodium 128 mmol/L (135-145)
[2025-03-30] MEDS: cefTRIAXone sodium 1 GM VIAL IVPUSH (00:47)
[2025-03-30] MEDS: Magnesium Sulfate/H2O 2 GM/50 ML PIGGYBACK IV (00:51)
[2025-03-30 03:57] VITALS: BP 105/66; PULSE 82; RESP 18; TEMP 36.2; O2SAT 97
[2025-03-30] MEDS: Omeprazole 20 MG CAPSULE.DR PO (05:37)
[2025-03-30 07:55] VITALS: BP 112/68; PULSE 79; RESP 16; TEMP 36.6; O2SAT 100
[2025-03-30 08:12] LABS: Anion Gap 11 (12-20); Blood Urea Nitrogen 36 mg/dL (9-16); Calcium 8.6 mg/dL (8.4-10.2); Carbon Dioxide 26 mmol/L (22-29); Chloride 94 mmol/L (96-108); Creatinine Clr Calc Pharmacy 139.3; Estimated Glomerular Filt Rate > 60; Glucose Random 85 mg/dL (60-115); Potassium 3.2 mmol/L (3.3-5.1); Sodium 128 mmol/L (135-145)
[2025-03-30] MEDS: levETIRAcetam 500 MG TABLET 750 MG PO ×2 (08:21→20:12)
[2025-03-30] MEDS: Acetaminophen 325 MG TABLET 650 MG PO ×2 (08:25→20:11)
[2025-03-30] MEDS: Folic Acid 1 MG TABLET PO (08:26)
[2025-03-30] MEDS: Thiamine HCL 100 MG TABLET PO (08:26)
[2025-03-30] MEDS: Topiramate 25 MG TABLET PO (08:26)
[2025-03-30] MEDS: PHENobarbitaL 30 MG TABLET PO ×2 (08:26→20:11)
[2025-03-30] MEDS: Multivitamin TABLET 1 TAB PO (08:26)
[2025-03-30] MEDS: Sertraline HCL 100 MG TABLET PO (08:26)
[2025-03-30] MEDS: Sodium,Potassium Phosphates POWD.PACK 1 PACKET PO ×4 (08:26→20:10)
[2025-03-30] MEDS: 0.9 % Sodium Chloride Flush 3 ML SYRINGE IVFLUSH ×2 (08:27→16:05)
[2025-03-30] MEDS: Sodium Chloride Tab 1 GM TABLET 2 GM PO ×3 (08:35→20:11)
--- NOTE | 2025-03-30 10:36 | MHC.CM.PN ---
Per ROUNDS, Patient is not yet medically cleared for dc (electrolyte imbalances); home is the goal and CM will follow.
[2025-03-30 10:41] LABS: Alanine Aminotransferase 61 U/L (0-31); Albumin Level 3.5 g/dL (3.5-5.0); Aspartate Amino Transferase 83 U/L (5-31); Bilirubin Direct 0.3 mg/dL (0.0-0.5); Bilirubin Total 0.6 mg/dL (0.0-1.0); Total Protein 6.8 g/dL (6.5-8.0)
[2025-03-30 10:45] LABS: Alkaline Phosphatase 204 U/L (39-117)
[2025-03-30] MEDS: Potassium Chloride Packet 20 MEQ PACKET PO (10:45)
[2025-03-30 11:57] VITALS: BP 110/67; PULSE 85; RESP 16; TEMP 36.7; O2SAT 100
--- NOTE | 2025-03-30 13:56 | PM.PNNEP ---
Subjective Subjective Date of Service: 03/30/25 Interval history: 34 y/o with alcohol use disorder, depression on multiple psychiatric medications being followed for hyponatremia. sodium 128 this a.m., up from 122 yesterday patient on a fluid restriction, salt tabs 2gm BID and urea powder 30gm TID she states at bedside she feels the same, tired. Denies chest pain, shortness of breath, tremors/cramping. Physical Exam Vital Signs: Vital Signs: Last Vital Signs Temp 98.0 F 03/30/25 11:57 Pulse 85 03/30/25 11:57 Resp 16 03/30/25 11:57 BP 110/67 03/30/25 11:57 Pulse Ox 100 03/30/25 11:57 O2 Del Method Room Air 03/30/25 11:57 BMI result Body Mass Index 21.1 Const: General: no acute distress, awake and lethargic Orientation/consciousness: lethargic Resp: Effort & Inspection: normal respiratory effort and able to speak in complete sentences Auscultation: clear to auscultation bilaterally Cardio: Rate: regular rate Rhythm: regular rhythm Heart sounds: S1 normal heart sound present and S2 normal heart sound present GI: Palpation (GI): Soft to palpation and nontender Skin: Rashes: no rashes Neuro: Other: Lethargic and slow in responses. Non focal exam Extrem: General: No edema Objective Data Labs 03/29/25 08:43 03/30/25 07:26 Labs: Laboratory Results - last 24 hr 03/29/25 03/29/25 03/29/25 14:52 19:18 23:16 Hold Purple Top Sodium 122 L 126 L 128 L Potassium 3.2 L 3.3 3.2 L Chloride 91 L 90 L Carbon Dioxide 25 23 Anion Gap 9 L 16 BUN 44 H 57 H Creatinine 0.44 L 0.49 L Estim Creat Clear Calc 142.5 127.9 Estimated GFR > 60 > 60 Random Glucose 99 86 Calcium 8.4 8.7 Magnesium 1.4 L* Total Bilirubin Direct Bilirubin AST ALT Alkaline Phosphatase Total Protein Albumin 03/30/25 07:26 Hold Purple Top SEE NOTE Sodium 128 L Potassium 3.2 L Chloride 94 L Carbon Dioxide 26 Anion Gap 11 L BUN 36 H Creatinine 0.45 L Estim Creat Clear Calc 139.3 Estimated GFR > 60 Random Glucose 85 Calcium 8.6 Magnesium 2.0 Total Bilirubin 0.6 Direct Bilirubin 0.3 AST 83 H ALT 61 H Alkaline Phosphatase 204 H Total Protein 6.8 Albumin 3.5 Microbiology Microbiology Results: Microbiology 03/28/25 01:31 Blood - Venous Blood Culture - Preliminary No growth after 48 hours. 03/28/25 01:15 Blood - Venous Blood Culture - Preliminary No growth after 48 hours. 03/27/25 Unknown Urine clean catch - Clean Catch Midstream Urine Culture - Final Procedures Date of Service Date of Service: 03/30/25 Assessment & Plan Assessment and plan (1) Acute hyponatremia: Status: Inactive (2) Acute hypokalemia: Status: Inactive [facility]- hyponatremia- improving, close to baseline as patient has a mild chronic hyponatremia. Rate of correction is appropriate. may consider alternative such as phenytoin or other antiepileptic to keppra that does not tend to cause SIADH. Sertraline, topamax, and seroquel may also be contributing, recommend consulting with psychiatry about holding and/or tapering down medications if patient's hyponatremia worsens or causes symptoms. Continue 1L fluid restriction. recommend continuing sodium tablets recommend continuing 30gm TID urea powder hypokalemia and hypocalcemia have improved with magnesium replacement- continue magnesium replacement as needed. recommend alcohol detox facility upon discharge if patient is willing. discussed with Dr Choe Time Spent With Patient Time: Total time managing care of this patient today ____ minutes. Progress Note: Quality Stroke Does the patient have a stroke diagnosis?: No
[2025-03-30] MEDS: Urea 15 GM POWDER 30 GM PO ×2 (14:50→20:10)
--- NOTE | 2025-03-30 15:49 | MHC.SPEECHCO ---
Order received for bedside dysphagia evaluation. LIBERAL ARTS DEAN contacted Dr. Galeano to inquire about hx and any concerns related to swallow. Dr. Galeano reports eval is not needed and he will cancel the order.
[2025-03-30 16:00] VITALS: BP 119/71; PULSE 71; RESP 18; TEMP 36.2; O2SAT 100
--- NOTE | 2025-03-30 17:14 | P.PNIM_ITS ---
Subjective Subjective Date of Service: 03/30/25 Interval History: hyponatremia , hypokalemia Review of Systems mild loose stool no nausea /vomiting no fevers Review of Systems: Yes all other systems are reviewed and are negative Physical Exam 2 Vital Signs: Vital Signs: Last Vital Signs Temp 97.2 F 03/30/25 16:00 Pulse 71 03/30/25 16:00 Resp 18 03/30/25 16:00 BP 119/71 03/30/25 16:00 Pulse Ox 100 03/30/25 16:00 O2 Del Method Room Air 03/30/25 16:00 BMI result Body Mass Index 21.1 Appearance: Alert.? Oriented X3.? cvs: [id number], [id number] . res: clear to auscultation ,no rhonchii or wheezing abd: no rebound or guarding ,nt, bs present. ext pulses present , no cyanosis . neuro: axo3 , nonfocal. Objective Data Active Medications Acetaminophen (Acetaminophen 325 Mg Tablet) 650 mg PO Q6H PRN PRN Reason: Pain, Mild 1-3,fever,headache Last Admin: 03/30/25 08:25 Dose: 650 mg Documented By: MICHELLE Calcium Carbonate (Calcium Carbonate 750 Mg Tab.Chew) 750 mg PO Q4H PRN PRN Reason: Heartburn Ceftriaxone Sodium (Ceftriaxone Sodium 1 Gm Vial) 1 gm IVPUSH Q24H [facility] Last Admin: 03/30/25 00:47 Dose: 1 gm Documented By: ANTOINC Folic Acid (Folic Acid 1 Mg Tablet) 1 mg PO DAILY [facility] Last Admin: 03/30/25 08:26 Dose: 1 mg Documented By: LARS-ALMA Levetiracetam (Levetiracetam 500 Mg Tablet) 750 mg PO BID [facility] Last Admin: 03/30/25 08:21 Dose: 750 mg Documented By: MICHELLE Magnesium Hydroxide (Milk Of Magnesia 30 Ml Oral.Susp) 30 ml PO DAILY PRN PRN Reason: Constipation Multivitamins/Vitamin C (Multivitamin Tablet) 1 tab PO DAILY [facility] Last Admin: 03/30/25 08:26 Dose: 1 tab Documented By: MICHELLE Naltrexone HCl (Naltrexone Hcl 50 Mg Tablet) 50 mg PO DAILY [facility] Omeprazole (Omeprazole 20 Mg Capsule.) 20 mg PO DAILY@0630 [facility] Last Admin: 03/30/25 05:37 Dose: 20 mg Documented By: CELINA Pharmacy Consult (Consult Rx Etoh Phenob Im/Po) 1 each MISCELLANE ONCE PRN; Protocol PRN Reason: Consult order Phenobarbital (Phenobarbital 30 Mg Tablet) 30 mg PO BID [facility] Stop: 03/31/25 21:01 Last Admin: 03/30/25 08:26 Dose: 30 mg Documented By: MICHELLE Phenobarbital (Phenobarbital 15 Mg Tablet) 15 mg PO DAILY [facility] Stop: 04/02/25 09:01 Potassium Phos/Sodium Phos (Sodium,Potassium Phosphates Powd.Pack) 1 packet PO QID [facility] Last Admin: 03/30/25 16:05 Dose: 1 packet Documented By: MICHELLE Quetiapine Fumarate (Quetiapine Fumarate 50 Mg Tablet) 50 mg PO BEDTIME [facility] Last Admin: 03/29/25 21:39 Dose: 50 mg Documented By: CELINA Sertraline HCl (Sertraline Hcl 100 Mg Tablet) 100 mg PO DAILY [facility] Last Admin: 03/30/25 08:26 Dose: 100 mg Documented By: MICHELLE Sodium Chloride (0.9 % Sodium Chloride Flush 3 Ml Syringe) 3 ml IVFLUSH QSHIFT [facility] Last Admin: 03/30/25 16:05 Dose: 3 ml Documented By: MICHELLE Sodium Chloride (Sodium Chloride Tab 1 Gm Tablet) 2 gm PO TID [facility] Last Admin: 03/30/25 14:50 Dose: 2 gm Documented By: MICHELLE Thiamine HCl (Thiamine Hcl 100 Mg Tablet) 100 mg PO DAILY [facility] Last Admin: 03/30/25 08:26 Dose: 100 mg Documented By: MICHELLE Topiramate (Topiramate 25 Mg Tablet) 25 mg PO DAILY [facility] Last Admin: 03/30/25 08:26 Dose: 25 mg Documented By: MICHELLE Urea (Urea 15 Gm Powder) 30 gm PO TID [facility] Last Admin: 03/30/25 14:50 Dose: 30 gm Documented By: MICHELLE Labs 03/29/25 08:43 03/30/25 07:26 Labs: Laboratory Results - last 24 hr 03/29/25 03/29/25 03/30/25 19:18 23:16 07:26 Hold Purple Top SEE NOTE Anion Gap 16 11 L Estim Creat Clear Calc 127.9 139.3 Estimated GFR > 60 > 60 Random Glucose 86 85 Calcium 8.7 8.6 Magnesium 1.4 L* 2.0 Total Bilirubin 0.6 Direct Bilirubin 0.3 AST 83 H ALT 61 H Alkaline Phosphatase 204 H Total Protein 6.8 Albumin 3.5 Microbiology Microbiology Results: Microbiology 03/28/25 01:31 Blood Culture - Preliminary Blood - Venous No growth after 48 hours. 03/28/25 01:15 Blood Culture - Preliminary Blood - Venous No growth after 48 hours. Assessment and Plan (1) Hypomagnesemia: Status: Acute (2) Hyponatremia: Status: Acute (3) Seizures: Status: Acute (4) Acute hypokalemia: Status: Acute Plan 34 y/o woman admitted with: Seizure, likely secondary to alcohol abuse in the setting of epilepsy. Telemetry. Seizure and fall precautions. neuro recomended to adjust keppra currently patient is also on phenobarbital( so will continue home dose keppra ) check keppra levels added eeg Alcohol withdrawal symptoms/alcohol abuse. CIWA around 1. Continue thiamine, multivitamins and folic acid. Phenobarbital protocol. Patient was advised to obtain from alcohol use. Social work/business case analyst consult. Mild thrombocytopenia: Platelet trending down Monitor closely Abnormal LFT secondary to alcohol abuse: Elevated AST and alk-phos (normal total bilirubbin and ALT). Check INR. Alcohol abstinence. Continue to monitor for now. Multiple electrolyte imbalances secondary to alcohol abuse and vomiting: Hyponatremia 122(around baseline 127), hypokalemia. Electrolyte repleted, for hyponatremia workup ordered-hold IV fluid, fluid restriction 1.5 L, sodium tablets and urea Nephrology following Depression. Continue sertraline, topiramate and Seroquel. Presumed UTI. Start empiric antibiotic therapy with ceftriaxone IV. Urine cultures -follow results. DVT prophylaxis: mechanical devices (if platelets level < 100 will hold Lovenox). Code status: Full Ongoing need for seizures, alcohol withdrawal symptoms and lytes imbalances treatment and management; patient will need close monitoring of her vital signs, electrolytes and antiseizures medication Quality Stroke Does the patient have a stroke diagnosis?: No VTE Prior VTE?: No VTE Risk Level:: Medical - moderate - high VTE Device Contraindication: Treatment Not Indicated VTE Drug Contraindication: N/A - Med Ordered
[2025-03-30 17:51] LABS: Anion Gap 9 (12-20); Blood Urea Nitrogen 48 mg/dL (9-16); Carbon Dioxide 26 mmol/L (22-29); Chloride 98 mmol/L (96-108); Creatinine Clr Calc Pharmacy 122.9; Estimated Glomerular Filt Rate > 60; Glucose Random 97 mg/dL (60-115); Potassium 3.9 mmol/L (3.3-5.1); Sodium 129 mmol/L (135-145)
[2025-03-30 20:00] VITALS: BP 120/77; PULSE 99; RESP 16; TEMP 36.3; O2SAT 100
[2025-03-30] MEDS: QUEtiapine Fumarate 50 MG TABLET PO (20:11)
[2025-03-31] VITALS: BP 105/64; PULSE 76; RESP 16; TEMP 37.1; O2SAT 97
[2025-03-31] MEDS: cefTRIAXone sodium 1 GM VIAL IVPUSH (00:57)
[2025-03-31] MEDS: 0.9 % Sodium Chloride Flush 3 ML SYRINGE IVFLUSH ×2 (00:57→17:24)
[2025-03-31 04:00] VITALS: BP 107/59; PULSE 78; RESP 16; TEMP 36.9; O2SAT 97
[2025-03-31] MEDS: Omeprazole 20 MG CAPSULE.DR PO (06:19)
[2025-03-31 07:04] VITALS: BP 109/60; PULSE 67; RESP 16; TEMP 36.4; O2SAT 100
[2025-03-31 07:17] LABS: Anion Gap 12 (12-20); Blood Urea Nitrogen 30 mg/dL (9-16); Calcium 9.4 mg/dL (8.4-10.2); Carbon Dioxide 27 mmol/L (22-29); Chloride 96 mmol/L (96-108); Creatinine Clr Calc Pharmacy 122.9; Estimated Glomerular Filt Rate > 60; Glucose Random 90 mg/dL (60-115); Magnesium 1.5 mg/dL (1.6-2.6); Potassium 3.4 mmol/L (3.3-5.1); Sodium 132 mmol/L (135-145)
[2025-03-31] MEDS: Urea 15 GM POWDER 30 GM PO (08:40)
[2025-03-31] MEDS: Magnesium Sulfate/D5W 1 GM/100 ML PIGGYBACK IV (08:40)
[2025-03-31] MEDS: Folic Acid 1 MG TABLET PO (08:40)
[2025-03-31] MEDS: Sodium Chloride Tab 1 GM TABLET 2 GM PO ×3 (08:40→19:57)
[2025-03-31] MEDS: Potassium Chloride Packet 20 MEQ PACKET PO (08:40)
[2025-03-31] MEDS: Sertraline HCL 100 MG TABLET PO (08:40)
[2025-03-31] MEDS: PHENobarbitaL 30 MG TABLET PO ×2 (08:40→19:57)
[2025-03-31] MEDS: Sodium,Potassium Phosphates POWD.PACK 1 PACKET PO ×4 (08:40→19:56)
[2025-03-31] MEDS: Multivitamin TABLET 1 TAB PO (08:41)
[2025-03-31] MEDS: Topiramate 25 MG TABLET PO (08:41)
[2025-03-31] MEDS: levETIRAcetam 500 MG TABLET 750 MG PO (08:41)
[2025-03-31] MEDS: Thiamine HCL 100 MG TABLET PO (08:41)
[2025-03-31] MEDS: Naltrexone HCl 50 MG TABLET PO (08:41)
[2025-03-31] MEDS: Acetaminophen 325 MG TABLET 650 MG PO (09:12)
[2025-03-31 11:51] VITALS: BP 106/60; PULSE 77; RESP 16; TEMP 36.9; O2SAT 100
[2025-03-31] MEDS: hydrOXYzine HCL 50 MG TABLET PO (12:21)
[2025-03-31 12:51] LABS: CDiff Gene PCR POSITIVE (Negative)
[2025-03-31 13:27] LABS: CDIFF Internal ctrl Dots and bkg OK (V); CDiff Toxin Negative (Negative)
[2025-03-31 13:39] LABS: Alanine Aminotransferase 54 U/L (0-31); Aspartate Amino Transferase 45 U/L (5-31); Bilirubin Direct 0.2 mg/dL (0.0-0.5); Bilirubin Total 0.4 mg/dL (0.0-1.0); Total Protein 7.4 g/dL (6.5-8.0)
[2025-03-31 13:43] LABS: Alkaline Phosphatase 207 U/L (39-117)
[2025-03-31] MEDS: vancomycin HCL 125 MG CAPSULE PO ×2 (14:16→19:57)
--- NOTE | 2025-03-31 14:35 | HO.PM.IMPN ---
Subjective Subjective Date of Service: 03/31/25 Interval History: hyponatremia , hypokalemia Review of Systems has diarrhae on/off since admission no nausea /vomiting no fevers Review of Systems: Yes all other systems are reviewed and are negative Physical Exam Vital Signs: Vital Signs: Last Vital Signs Temp 98.5 F 03/31/25 11:51 Pulse 77 03/31/25 11:51 Resp 16 03/31/25 11:51 BP 106/60 03/31/25 11:51 Pulse Ox 100 03/31/25 11:51 O2 Del Method Room Air 03/31/25 11:51 BMI result Body Mass Index 21.1 Appearance: Alert.? Oriented X3.? cvs: rrr, [id number] . res: clear to auscultation ,no rhonchii or wheezing abd: no rebound or guarding ,nt, bs present. ext pulses present , no cyanosis. neuro: axo3 , nonfocal. Objective Data Active Medications Acetaminophen (Acetaminophen 325 Mg Tablet) 650 mg PO Q6H PRN PRN Reason: Pain, Mild 1-3,fever,headache Last Admin: 03/31/25 09:12 Dose: 650 mg Documented By: JOHN Calcium Carbonate (Calcium Carbonate 750 Mg Tab.Chew) 750 mg PO Q4H PRN PRN Reason: Heartburn Ceftriaxone Sodium (Ceftriaxone Sodium 1 Gm Vial) 1 gm IVPUSH Q24H [facility] Last Admin: 03/31/25 00:57 Dose: 1 gm Documented By: ANTOINC Folic Acid (Folic Acid 1 Mg Tablet) 1 mg PO DAILY [facility] Last Admin: 03/31/25 08:40 Dose: 1 mg Documented By: JOHN Hydroxyzine HCl (Hydroxyzine Hcl 50 Mg Tablet) 50 mg PO DAILY [facility] Last Admin: 03/31/25 12:21 Dose: 50 mg Documented By: JOHN Levetiracetam (Levetiracetam 1,000 Mg Tablet) 1,000 mg PO BID [facility] Last Admin: 03/31/25 09:03 Dose: Not Given Documented By: JOHN Non-Admin Reason: Previously Administered Magnesium Hydroxide (Milk Of Magnesia 30 Ml Oral.Susp) 30 ml PO DAILY PRN PRN Reason: Constipation Multivitamins/Vitamin C (Multivitamin Tablet) 1 tab PO DAILY [facility] Last Admin: 03/31/25 08:41 Dose: 1 tab Documented By: JOHN Naltrexone HCl (Naltrexone Hcl 50 Mg Tablet) 50 mg PO DAILY [facility] Last Admin: 03/31/25 08:41 Dose: 50 mg Documented By: JOHN Omeprazole (Omeprazole 20 Mg Capsule.Dr) 20 mg PO DAILY@0630 [facility] Last Admin: 03/31/25 06:19 Dose: 20 mg Documented By: ANTBUZZ Pharmacy Consult (Consult Rx Etoh Phenob Im/Po) 1 each MISCELLANE ONCE PRN; Protocol PRN Reason: Consult order Phenobarbital (Phenobarbital 30 Mg Tablet) 30 mg PO BID [facility] Stop: 03/31/25 21:01 Last Admin: 03/31/25 08:40 Dose: 30 mg Documented By: JOHN Phenobarbital (Phenobarbital 15 Mg Tablet) 15 mg PO DAILY [facility] Stop: 04/02/25 09:01 Potassium Phos/Sodium Phos (Sodium,Potassium Phosphates Powd.Pack) 1 packet PO QID [facility] Last Admin: 03/31/25 12:21 Dose: 1 packet Documented By: JOHN Quetiapine Fumarate (Quetiapine Fumarate 50 Mg Tablet) 50 mg PO BEDTIME [facility] Last Admin: 03/30/25 20:11 Dose: 50 mg Documented By: CELINA Sertraline HCl (Sertraline Hcl 100 Mg Tablet) 100 mg PO DAILY [facility] Last Admin: 03/31/25 08:40 Dose: 100 mg Documented By: JHON Sodium Chloride (0.9 % Sodium Chloride Flush 3 Ml Syringe) 3 ml IVFLUSH QSHIFT [facility] Last Admin: 03/31/25 07:24 Dose: Not Given Documented By: JOHN Non-Admin Reason: Previously Administered Sodium Chloride (Sodium Chloride Tab 1 Gm Tablet) 2 gm PO TID [facility] Last Admin: 03/31/25 14:16 Dose: 2 gm Documented By: JOHN Thiamine HCl (Thiamine Hcl 100 Mg Tablet) 100 mg PO DAILY [facility] Last Admin: 03/31/25 08:41 Dose: 100 mg Documented By: JOHN Topiramate (Topiramate 25 Mg Tablet) 25 mg PO DAILY [facility] Last Admin: 03/31/25 08:41 Dose: 25 mg Documented By: HO.SOFFAA Urea (Urea 15 Gm Powder) 30 gm PO DAILY [facility] Vancomycin HCl (Vancomycin Hcl 125 Mg Capsule) 125 mg PO Q6H [facility] Last Admin: 03/31/25 14:16 Dose: 125 mg Documented By: JOHN Labs 03/29/25 08:43 03/31/25 06:47 Labs: Laboratory Results - last 24 hr 03/30/25 03/31/25 03/31/25 17:25 06:47 10:40 Anion Gap 9 L 12 Estim Creat Clear Calc 122.9 122.9 Estimated GFR > 60 > 60 Random Glucose 97 90 Calcium 9.0 9.4 Magnesium 1.5 L Total Bilirubin 0.4 Direct Bilirubin 0.2 AST 45 H ALT 54 H Alkaline Phosphatase 207 H Total Protein 7.4 Albumin 4.0 C. difficile Tox B Gene POSITIVE A* C. difficile Toxin A&B Negative C. difficile Interpret SEE NOTE Assessment and Plan (1) Hypomagnesemia: Status: Acute (2) Hyponatremia: Status: Acute (3) Seizures: Status: Acute (4) Acute hypokalemia: Status: Acute Plan 34 y/o woman admitted with: Seizure, likely secondary to alcohol abuse in the setting of epilepsy. Telemetry. Seizure and fall precautions. neuro recomended to adjust keppra currently patient is also on phenobarbital( so will continue home dose keppra ) check keppra levels added eeg Alcohol withdrawal symptoms/alcohol abuse. CIWA around 1. Continue thiamine, multivitamins and folic acid. Phenobarbital protocol. Patient was advised to obtain from alcohol use. Social work/complex case manager consult. Mild thrombocytopenia: Platelet trending down Monitor closely Abnormal LFT secondary to alcohol abuse: Elevated AST and alk-phos (normal total bilirubbin and ALT). Check INR. Alcohol abstinence. Continue to monitor for now. Multiple electrolyte imbalances secondary to alcohol abuse and vomiting: Hyponatremia 132, hypokalemia. Electrolyte repleted, for hyponatremia workup ordered-hold IV fluid, fluid restriction 1.5 L, sodium tablets and urea decreased to qd Nephrology following diarrhae: cdiff tox b gene -positive cdiff toxin negtaive gip panel pending will add po vanco ,added Id eval. Depression. Continue sertraline, topiramate and Seroquel.psych eval Presumed UTI. Start empiric antibiotic therapy with ceftriaxone IV. Urine cultures -follow results. DVT prophylaxis: mechanical devices (if platelets level < 100 will hold Lovenox). Code status: Full Ongoing need for seizures, alcohol withdrawal symptoms and lytes imbalances treatment and management; patient will need close monitoring of her vital signs, electrolytes and antiseizures medication Quality Stroke Does the patient have a stroke diagnosis?: No VTE Prior VTE?: No VTE Risk Level:: Medical - moderate - high VTE Device Contraindication: Treatment Not Indicated VTE Drug Contraindication: N/A - Med Ordered
--- NOTE | 2025-03-31 14:36 | PC.NURSE ---
informed of + cdiff result
[2025-03-31 15:15] VITALS: BP 111/62; PULSE 70; RESP 16; TEMP 36.4; O2SAT 100
--- NOTE | 2025-03-31 17:51 | P.CNPS_ITS ---
History of Present Illness Date of Service: 03/31/2025 Chief Complaint: Alcohol withdrawal Discussed with referring provider: Yes Sources of Information: patient interviewed, chart reviewed and crisis/core team assessment reviewed HPI Narrative: Ms. Barraza is a 34 year-old woman with hx of alcohol use disorder who was admitted due to multiple electrolyte imbalances including hyponatremia, hypokalemia/Mg/Chelsi. She has been followed by nephrology, pt with SIAHD. Psychiatry consulted to assess psychotropic medications that can exacerbate or cause SIAHD. Pt seen in her room. She reports she has been drinking more ni past 2 weeks prior to coming to the hospital. She reports she is not consistent with taking medications, especially when she uses alcohol. She reports she thinks she was not taking sertraline nor seroquel at home. She does not know who had prescribed topamax and also reports she does not think she had been taking them. She reports she has been on sertraline for about one year or so but also states she has not taken it consistently. She denies SI/HI. She denies hx of psychosis. She denies hx consistent with bernardo or hypomania. She denies suicide attempts. She denies hx of inpt psychiatric admission. She reports she has been sectioned 35 (court mandated alcohol use disorder treatment) last year for one month by family. She reports her main concern is anxiety. She reports her sleep is fair. She asks if she can have a medication that can help with anxiety. She reports she has been on vistaril which has not been effective. Past Psychiatric History: Inpt: denies OP: none Past medication trials: sertraline, seroquel, topamax. Medical Evaluation Reviewed: Yes [facility] Medical History (Updated 04/01/25 @ 13:29 by Yaneth Abbott NP) Alcohol use disorder, severe, dependence Hypomagnesemia Acute hyponatremia Acute urinary retention Acute hypokalemia Epileptic seizure Alcohol withdrawal Seizure Acute dehydration Acute hypokalemia Acute alcohol intoxication Acute respiratory failure Acute hypokalemia Acute hyponatremia Alcohol withdrawal Status epilepticus Withdrawal seizures Depression Alcoholism Diagnostics Vital Signs (24Hr): Vital Signs - 24 hr 03/30/25 20:00 03/31/25 00:00 03/31/25 04:00 Temperature 97.4 F 98.8 F 98.4 F Pulse Rate 99 76 78 Respiratory Rate 16 16 16 Blood Pressure 120/77 105/64 107/59 L Pulse Oximetry 100 97 97 Oxygen Delivery Method Room Air Room Air Room Air 03/31/25 07:04 03/31/25 11:51 03/31/25 15:15 Temperature 97.6 F 98.5 F 97.6 F Pulse Rate 67 77 70 Respiratory Rate 16 16 16 Blood Pressure 109/60 106/60 111/62 Pulse Oximetry 100 100 100 Oxygen Delivery Method Room Air Room Air BMI result Body Mass Index 21.1 Labs 03/29/25 08:43 04/01/25 05:46 Labs: Laboratory Results - last 48 hr 03/29/25 03/29/25 03/30/25 19:18 23:16 07:26 Hold Purple Top SEE NOTE Sodium 126 L 128 L 128 L Potassium 3.3 3.2 L 3.2 L Chloride 90 L 94 L Carbon Dioxide 23 26 Anion Gap 16 11 L BUN 57 H 36 H Creatinine 0.49 L 0.45 L Estim Creat Clear Calc 127.9 139.3 Estimated GFR > 60 > 60 Random Glucose 86 85 Calcium 8.7 8.6 Magnesium 1.4 L* 2.0 Total Bilirubin 0.6 Direct Bilirubin 0.3 AST 83 H ALT 61 H Alkaline Phosphatase 204 H Total Protein 6.8 Albumin 3.5 C. difficile Tox B Gene C. difficile Toxin A&B C. difficile Interpret 03/30/25 03/31/25 03/31/25 17:25 06:47 10:40 Hold Purple Top Sodium 129 L 132 L Potassium 3.9 D 3.4 Chloride 98 96 Carbon Dioxide 26 27 Anion Gap 9 L 12 BUN 48 H 30 H Creatinine 0.51 0.51 Estim Creat Clear Calc 122.9 122.9 Estimated GFR > 60 > 60 Random Glucose 97 90 Calcium 9.0 9.4 Magnesium 1.5 L Total Bilirubin 0.4 Direct Bilirubin 0.2 AST 45 H ALT 54 H Alkaline Phosphatase 207 H Total Protein 7.4 Albumin 4.0 C. difficile Tox B Gene POSITIVE A* C. difficile Toxin A&B Negative C. difficile Interpret SEE NOTE Mental Status Exam Mental Status Exam Narrative: Appearance: wearing hospital gown, fair hygiene, in NAD Behavior: cooperative Psychomotor: no agitation or retardation noted Speech: clear, normal rate/rhythm/volume, spontaneous TP: linear TC: wanting help with anxiety Mood: tired Affect: congruent SI: denies HI: none VH/AH: none Delusions: none Insight/judgment: poor x 2 but intact. Memory/cog: alert, oriented x 4. grossly intact to conversational testing. Medications Medications Current Medications Acetaminophen (Acetaminophen 325 Mg Tablet) 650 mg PO Q6H PRN PRN Reason: Pain, Mild 1-3,fever,headache Last Admin: 03/31/25 09:12 Dose: 650 mg Calcium Carbonate (Calcium Carbonate 750 Mg Tab.Chew) 750 mg PO Q4H PRN PRN Reason: Heartburn Ceftriaxone Sodium (Ceftriaxone Sodium 1 Gm Vial) 1 gm IVPUSH Q24H [facility] Last Admin: 03/31/25 00:57 Dose: 1 gm Folic Acid (Folic Acid 1 Mg Tablet) 1 mg PO DAILY [facility] Last Admin: 03/31/25 08:40 Dose: 1 mg Hydroxyzine HCl (Hydroxyzine Hcl 50 Mg Tablet) 50 mg PO DAILY [facility] Last Admin: 03/31/25 12:21 Dose: 50 mg Levetiracetam (Levetiracetam 1,000 Mg Tablet) 1,000 mg PO BID [facility] Last Admin: 03/31/25 09:03 Dose: Not Given Magnesium Hydroxide (Milk Of Magnesia 30 Ml Oral.Susp) 30 ml PO DAILY PRN PRN Reason: Constipation Multivitamins/Vitamin C (Multivitamin Tablet) 1 tab PO DAILY [facility] Last Admin: 03/31/25 08:41 Dose: 1 tab Naltrexone HCl (Naltrexone Hcl 50 Mg Tablet) 50 mg PO DAILY [facility] Last Admin: 03/31/25 08:41 Dose: 50 mg Omeprazole (Omeprazole 20 Mg Capsule.Dr) 20 mg PO DAILY@0630 [facility] Last Admin: 03/31/25 06:19 Dose: 20 mg Pharmacy Consult (Consult Rx Etoh Phenob Im/Po) 1 each MISCELLANE ONCE PRN; Protocol PRN Reason: Consult order Phenobarbital (Phenobarbital 30 Mg Tablet) 30 mg PO BID [facility] Stop: 03/31/25 21:01 Last Admin: 03/31/25 08:40 Dose: 30 mg Phenobarbital (Phenobarbital 15 Mg Tablet) 15 mg PO DAILY [facility] Stop: 04/02/25 09:01 Potassium Phos/Sodium Phos (Sodium,Potassium Phosphates Powd.Pack) 1 packet PO QID [facility] Last Admin: 03/31/25 17:24 Dose: 1 packet Quetiapine Fumarate (Quetiapine Fumarate 50 Mg Tablet) 50 mg PO BEDTIME [facility] Last Admin: 03/30/25 20:11 Dose: 50 mg Sertraline HCl (Sertraline Hcl 100 Mg Tablet) 100 mg PO DAILY [facility] Last Admin: 03/31/25 08:40 Dose: 100 mg Sodium Chloride (0.9 % Sodium Chloride Flush 3 Ml Syringe) 3 ml IVFLUSH QSHIFT [facility] Last Admin: 03/31/25 17:24 Dose: 3 ml Sodium Chloride (Sodium Chloride Tab 1 Gm Tablet) 2 gm PO TID [facility] Last Admin: 03/31/25 14:16 Dose: 2 gm Thiamine HCl (Thiamine Hcl 100 Mg Tablet) 100 mg PO DAILY [facility] Last Admin: 03/31/25 08:41 Dose: 100 mg Topiramate (Topiramate 25 Mg Tablet) 25 mg PO DAILY [facility] Last Admin: 03/31/25 08:41 Dose: 25 mg Urea (Urea 15 Gm Powder) 30 gm PO DAILY [facility] Vancomycin HCl (Vancomycin Hcl 125 Mg Capsule) 125 mg PO Q6H [facility] Last Admin: 03/31/25 14:16 Dose: 125 mg Allergies Allergies Allergy/AdvReac Type Severity Reaction Status Date / Time Iodinated Contrast Media AdvReac Hives Verified 03/27/25 18:23 [Contrast Dye] Assessment & Plan Assessment & Plan (1) DAVID (generalized anxiety disorder): Status: Acute Code(s): F41.1 - Generalized anxiety disorder Plan Ms. Barraza is a 34 year-old woman with hx of alcohol use disorder who was admitted due to several electrolyte abnormalities including hyponatremia s/s SIADH. In context of chronic alcohol use, alcohol may increase ADH. It does not appear that patient is consistently taking antidepressant sertraline nor seroquel nor topamax. We discussed stopping these medication for now- pt in agreement. She denies depressed mood and SI. She does report main concern is anxiety. We discussed adding gabapentin 200mg TID. D/C vistaril due to lack of therapeutic benefit. Continue naltrexon. If needed in the future, SNRI may have slightly less risk for hyponatremia. Total time managing care of this patient today ____ minutes.
[2025-03-31] MEDS: Gabapentin 100 MG CAPSULE 200 MG PO ×2 (18:54→19:58)
[2025-03-31] MEDS: QUEtiapine Fumarate 50 MG TABLET PO (19:57)
[2025-03-31] MEDS: levETIRAcetam 1,000 MG TABLET 1000 MG PO (19:57)
[2025-03-31 19:58] VITALS: BP 107/63; PULSE 67; RESP 16; TEMP 36.1; O2SAT 100
[2025-04-01] VITALS: BP 95/55; PULSE 68; RESP 16; TEMP 36.2; O2SAT 99
[2025-04-01] MEDS: 0.9 % Sodium Chloride Flush 3 ML SYRINGE IVFLUSH ×3 (01:43→14:00)
[2025-04-01] MEDS: cefTRIAXone sodium 1 GM VIAL IVPUSH (01:43)
[2025-04-01] MEDS: vancomycin HCL 125 MG CAPSULE PO ×3 (01:43→13:59)
[2025-04-01 04:00] VITALS: BP 104/62; PULSE 68; RESP 14; TEMP 36.3; O2SAT 99
[2025-04-01] MEDS: Omeprazole 20 MG CAPSULE.DR PO (06:24)
[2025-04-01 06:31] LABS: Anion Gap 13 (12-20); Blood Urea Nitrogen 12 mg/dL (9-16); Carbon Dioxide 25 mmol/L (22-29); Chloride 99 mmol/L (96-108); Creatinine Clr Calc Pharmacy 130.6; Estimated Glomerular Filt Rate > 60; Glucose Random 88 mg/dL (60-115); Magnesium 1.7 mg/dL (1.6-2.6); Potassium 3.7 mmol/L (3.3-5.1); Sodium 133 mmol/L (135-145)
[2025-04-01 06:43] LABS: Cortisol Random 8.1 ug/dL
[2025-04-01 06:46] LABS: TSH reflex Free T4 0.95 uIU/mL (0.32-4.0)
[2025-04-01 07:13] LABS: Adenovirus F 40/41 Not Detected (Not Detect.); Astrovirus Not Detected (Not Detect.); Campylobacter Not Detected (Not Detect.); Cryptosporidium Not Detected (Not Detect.); Cyclospora cayetanensis Not Detected (Not Detect.); E. coli EAEC Not Detected (Not Detect.); E. coli EPEC Not Detected (Not Detect.); E. coli ETEC Not Detected (Not Detect.); E. coli STEC Not Detected (Not Detect.); Entamoeba histolytica Not Detected (Not Detect.); Giardia lamblia Not Detected (Not Detect.); Norovirus GI/GII Not Detected (Not Detect.); Plesiomonas shigelloides Not Detected (Not Detect.); Rotavirus A Not Detected (Not Detect.); Salmonella Not Detected (Not Detect.); Sapovirus Not Detected (Not Detect.); Shigella sp./EIEC Not Detected (Not Detect.); Vibrio Not Detected (Not Detect.); Vibrio Cholerae Not Detected (Not Detect.); Yersinia enterocolitica Not Detected (Not Detect.)
[2025-04-01 07:32] VITALS: BP 102/60; PULSE 78; RESP 16; TEMP 36.4; O2SAT 100
--- NOTE | 2025-04-01 07:43 | HO.PM.IMPN ---
Subjective Subjective Date of Service: 04/01/25 Interval History: diarrhae,hyponatremia Review of Systems Review of Systems: Yes all other systems are reviewed and are negative Physical Exam Vital Signs: Vital Signs: Last Vital Signs Temp 97.5 F 04/01/25 07:32 Pulse 78 04/01/25 07:32 Resp 16 04/01/25 07:32 BP 102/60 04/01/25 07:32 Pulse Ox 100 04/01/25 07:32 O2 Del Method Room Air 04/01/25 07:32 BMI result Body Mass Index 21.1 Objective Data Active Medications Acetaminophen (Acetaminophen 325 Mg Tablet) 650 mg PO Q6H PRN PRN Reason: Pain, Mild 1-3,fever,headache Last Admin: 03/31/25 09:12 Dose: 650 mg Documented By: JOHN Calcium Carbonate (Calcium Carbonate 750 Mg Tab.Chew) 750 mg PO Q4H PRN PRN Reason: Heartburn Ceftriaxone Sodium (Ceftriaxone Sodium 1 Gm Vial) 1 gm IVPUSH Q24H [facility] Last Admin: 04/01/25 01:43 Dose: 1 gm Documented By: JEANNE Folic Acid (Folic Acid 1 Mg Tablet) 1 mg PO DAILY [facility] Last Admin: 03/31/25 08:40 Dose: 1 mg Documented By: JOHN Gabapentin (Gabapentin 100 Mg Capsule) 200 mg PO TID [facility] Last Admin: 03/31/25 19:58 Dose: 200 mg Documented By: JEANNE Levetiracetam (Levetiracetam 1,000 Mg Tablet) 1,000 mg PO BID [facility] Last Admin: 03/31/25 19:57 Dose: 1,000 mg Documented By: JEANNE Magnesium Hydroxide (Milk Of Magnesia 30 Ml Oral.Susp) 30 ml PO DAILY PRN PRN Reason: Constipation Multivitamins/Vitamin C (Multivitamin Tablet) 1 tab PO DAILY [facility] Last Admin: 03/31/25 08:41 Dose: 1 tab Documented By: JOHN Naltrexone HCl (Naltrexone Hcl 50 Mg Tablet) 50 mg PO DAILY [facility] Last Admin: 03/31/25 08:41 Dose: 50 mg Documented By: JOHN Omeprazole (Omeprazole 20 Mg Capsule.Dr) 20 mg PO DAILY@0630 [facility] Last Admin: 04/01/25 06:24 Dose: 20 mg Documented By: JEANNE Pharmacy Consult (Consult Rx Etoh Phenob Im/Po) 1 each MISCELLANE ONCE PRN; Protocol PRN Reason: Consult order Phenobarbital (Phenobarbital 15 Mg Tablet) 15 mg PO DAILY [facility] Stop: 04/02/25 09:01 Potassium Phos/Sodium Phos (Sodium,Potassium Phosphates Powd.Pack) 1 packet PO QID [facility] Last Admin: 03/31/25 19:56 Dose: 1 packet Documented By: JEANNE Quetiapine Fumarate (Quetiapine Fumarate 50 Mg Tablet) 50 mg PO BEDTIME [facility] Last Admin: 03/31/25 19:57 Dose: 50 mg Documented By: JEANNE Sodium Chloride (0.9 % Sodium Chloride Flush 3 Ml Syringe) 3 ml IVFLUSH QSHIFT [facility] Last Admin: 04/01/25 01:43 Dose: 3 ml Documented By: JEANNE Sodium Chloride (Sodium Chloride Tab 1 Gm Tablet) 2 gm PO TID [facility] Last Admin: 03/31/25 19:57 Dose: 2 gm Documented By: JEANNE Thiamine HCl (Thiamine Hcl 100 Mg Tablet) 100 mg PO DAILY [facility] Last Admin: 03/31/25 08:41 Dose: 100 mg Documented By: JOHN Urea (Urea 15 Gm Powder) 30 gm PO DAILY [facility] Vancomycin HCl (Vancomycin Hcl 125 Mg Capsule) 125 mg PO Q6H [facility] Last Admin: 04/01/25 01:43 Dose: 125 mg Documented By: JEANNE Labs 03/29/25 08:43 04/01/25 05:46 Labs: Laboratory Results - last 24 hr 03/31/25 03/31/25 04/01/25 06:47 10:40 05:46 Hold Purple Top SEE NOTE Anion Gap 13 Estim Creat Clear Calc 130.6 Estimated GFR > 60 Random Glucose 88 Calcium 9.0 Magnesium 1.7 Total Bilirubin 0.4 Direct Bilirubin 0.2 AST 45 H ALT 54 H Alkaline Phosphatase 207 H Total Protein 7.4 Albumin 4.0 TSH 0.95 Random Cortisol 8.1 Stl C. cayetanensis PCR Not Detected Stool Rotavirus A PCR Not Detected Stl Adenov F 40/ PCR Not Detected Stool Astrovirus (PCR) Not Detected Stool Campylobacter PCR Not Detected Stool Cryptosporidium PCR Not Detected Stl Sh Tox Pr E STEC PCR Not Detected Stool E coli O157 PCR Not applicable Stl Enterotoxigenic E PCR Not Detected Stool EPEC (PCR) Not Detected Stool EAEC (PCR) Not Detected Stl E. histolytica PCR Not Detected Stool Giardia Lamblia PCR Not Detected Stl P. shigelloides PCR Not Detected Stool Salmonella PCR Not Detected Stool Sapovirus (PCR) Not Detected Stl Shigella/EIEC PCR Not Detected St Y.enterocolitica PCR Not Detected Stool Vibrio (PCR) Not Detected Stl Vibrio cholerae PCR Not Detected Stl Norovirus GI/GII PCR Not Detected C. difficile Tox B Gene POSITIVE A* C. difficile Toxin A&B Negative C. difficile Interpret SEE NOTE Assessment and Plan (1) Hypomagnesemia: Status: Acute (2) Hyponatremia: Status: Acute (3) Seizures: Status: Acute (4) Acute hypokalemia: Status: Acute Plan 34 y/o woman admitted with: Seizure, likely secondary to alcohol abuse in the setting of epilepsy. Telemetry. Seizure and fall precautions. neuro recomended to adjust keppra currently patient is also on phenobarbital( so will continue home dose keppra ) check keppra levels added eeg Alcohol withdrawal symptoms/alcohol abuse. CIWA around 1. Continue thiamine, multivitamins and folic acid. Phenobarbital protocol. Patient was advised to obtain from alcohol use. Social work/caseworker intake consult. Mild thrombocytopenia: Platelet trending down Monitor closely Abnormal LFT secondary to alcohol abuse: Elevated AST and alk-phos (normal total bilirubbin and ALT). Check INR. Alcohol abstinence. Continue to monitor for now. Multiple electrolyte imbalances secondary to alcohol abuse and vomiting: Hyponatremia 132, hypokalemia. Electrolyte repleted, for hyponatremia workup ordered-hold IV fluid, fluid restriction 1.5 L, sodium tablets and urea decreased to qd Nephrology following diarrhae: cdiff tox b gene -positive cdiff toxin negtaive gip panel pending will add po vanco ,added Id eval. Depression. Continue sertraline, topiramate and Seroquel.psych eval Presumed UTI. Start empiric antibiotic therapy with ceftriaxone IV. Urine cultures -follow results. DVT prophylaxis: mechanical devices (if platelets level < 100 will hold Lovenox). Code status: Full Ongoing need for seizures, alcohol withdrawal symptoms and lytes imbalances treatment and management; patient will need close monitoring of her vital signs, electrolytes and antiseizures medication Quality Stroke Does the patient have a stroke diagnosis?: No VTE Prior VTE?: No VTE Risk Level:: Medical - moderate - high VTE Device Contraindication: Treatment Not Indicated VTE Drug Contraindication: N/A - Med Ordered
[2025-04-01] MEDS: Multivitamin TABLET 1 TAB PO (09:15)
[2025-04-01] MEDS: Sodium Chloride Tab 1 GM TABLET 2 GM PO (09:15)
[2025-04-01] MEDS: Naltrexone HCl 50 MG TABLET PO (09:15)
[2025-04-01] MEDS: Folic Acid 1 MG TABLET PO (09:15)
[2025-04-01] MEDS: Sodium,Potassium Phosphates POWD.PACK 1 PACKET PO ×2 (09:15→13:59)
[2025-04-01] MEDS: Gabapentin 100 MG CAPSULE 200 MG PO ×2 (09:15→13:58)
[2025-04-01] MEDS: Thiamine HCL 100 MG TABLET PO (09:16)
[2025-04-01] MEDS: PHENobarbitaL 15 MG TABLET PO (09:16)
[2025-04-01] MEDS: levETIRAcetam 1,000 MG TABLET 1000 MG PO (09:16)
[2025-04-01 11:15] VITALS: BP 107/67; PULSE 75; RESP 16; TEMP 36.7; O2SAT 100
[2025-04-01] MEDS: Sodium Chloride Tab 1 GM TABLET PO (13:59)
[2025-04-01 15:09] VITALS: BP 104/63; PULSE 68; RESP 16; O2SAT 98
--- NOTE | 2025-04-01 15:49 | PM.DS ---
DS: Providers Provider Date of Service: 04/01/25 Date of admission: 03/27/25 23:37 Date of discharge: 04/01/25 Primary care physician: Rupert Flores MD Consults: 03/28/25 01:09 Consult to Neurology Routine Consulting Provider: [facility] Reason for consultation: Seizures Has provider been notified: No 03/28/25 10:17 Consult to Nephrology Routine Consulting Provider: [facility] Reason for consultation: multiple electrolytic abnormalities Has provider been notified: No 03/28/25 11:40 Addiction Medicine Provider Routine Consulting Provider: Addiction [facility] Reason for consultation: alcohol abuse 03/29/25 13:04 Consult to Psychiatry Routine Consulting Provider: [facility] Reason for consultation: multiple psych meds leading to SIADH Has provider been notified: No 03/30/25 08:58 Inpt - Recovery Team Routine Comment: Reason for consultation: BH/GAGE Eval 03/31/25 17:06 Consult to Infectious Diseases Routine Consulting Provider: [facility] Reason for consultation: diarrhae -?cdiff Has provider been notified: No Attending physician on discharge: Karen Galeano Discharging clinician: Karen Galeano DS: Diagnosis Discharge Diagnosis (1) DAVID (generalized anxiety disorder): Status: Acute DS: Summary Hospital Course Hospital Course: 34 years old woman with past medical history significant for epilepsy on Keppra, depression and alcohol abuse who was brought to the emergency department via EMS after she had an event of seizure while laying down in bed. Patient stated that this episode was witnessed by her boyfriend. She said that she has been taking her home medications including sertraline, Seroquel, topiramate and Keppra. She also takes hydroxyzine, potassium pills, multivitamins and folic acid. She mentioned that she has not been taking her naloxone. She drinks alcohol on and off for many years. She said that last time she drank alcohol was yesterday. According to patient she drinks beers but was not very specific about the quantities. She reports over symptoms such as restlessness, nausea and vomiting, abdominal discomfort, headache, discomfort with urination and constipation. Denied events of diarrhea, fever or chills. She denied illicit drug use. She vapes nicotine. In the ED, she was found to have hypertension and tachycardia. There is no fever or tachypnea. Blood workup showed no leukocytosis. Hemoglobin is 13.7 and platelets 140. No workup was remarkable for significant hypokalemia, 2.1 and hyponatremia 127. BUN creatinine are normal. Glucose 142. LFTs are remarkable for elevated AST and alk-phos. Bilirubin, lipase and ALT are normal. Urinalysis consistent with urinary tract infection. ECG (poor quality) showed sinus tachycardia, heart rate 125 beats per minute without obvious ischemic changes. ED tx: Ativan 2 mg p.o., ringer lactate 1 L bolus, KCl 40 mEq IV and 40 mEq p.o. X2, NS 1 L bolus, Keppra 1 g thiamine 100 mg IV, phenobarbital 240 mg IM Hospital course: Alcohol withdrawal: Patient was started on phenobarb protocol, seems to be improved. Addiction Team saw the patient added naltrexone outpatient. Seizure: Seen by Neurology adjusted Keppra 1000 mg b.i.d., please follow Keppra level and EEG outpatient. Multiple electrolytic abnormalities: Hyponatremia improved with the fluid restriction and sodium tablets as well as urea: Improved, monitor electrolytes out patiently with PCP and consider outpatient nephrology follow-up. Hypokalemia and hypomagnesemia: Likely related to diarrhea and alcohol use, Repleted and resolved. Given limited magnesium supply for outpatient. Monitor electrolytes and renal function in [address] lerma from Nephro: Continue Keppra as adjusted since of psych medications . Monitor renal function electrolyte outpatient. Mild thrombocytopenia: No new bleeding, likely in the setting of alcohol use. Monitor CBC outpatient further management outpatient. Mild elevated LFT improving- likely in the setting of alcohol use. Improving ,monitor outpatient Diarrhea: Multifactorial-? (clear liquid diet, alcohol use, urea): Question positive C diff: discussed with ID:Will give benefit of doubt and treat with p.o. vancomycin 12 more days. Diuresed seems to be improved significantly. Asymptomatic bacteriuria and pyuria: Patient denies any urinary complaints, urine culture<[id number]/ml. Blood culture negative. Got antibiotic for 4-5 days. . Antibiotics currently. Plan: Monitor CBC, BMP, liver panel,magnesium levels Patient was strongly advised to abstain from alcohol, naltrexone prescription was sent by addiction Team pharmacy. potassium 10 meq po qd and Magnesium 800 mg p.o. b.i.d. limited supply for 1 week . Further need decided after repeating patient electrolytes. Complete vancomycin 12 more days. Seroquel, sertraline, hydroxyzine, Topamax stopped as per psych. Added gabapentin 200 mg t.i.d. follow-up with PCP outpatient, consider outpatient psych follow-up. Follow-up with PCP and Nephrology outpatient, consider outpatient neurology evaluation if needed. If any new symptoms or worsening diarrhea please come to the nearest emergency room. Above management discussed with the patient in detail length the she understand and in agreement with the above plan, time spent 40 minute, all question answered, staff was present during conversation. Time Attestation Total time managing care of this patient today: 40 mintues. Discharge Coordination Time (in mins): 40 min Quality: Safe Use of Opioids Does Pt have an Active Cancer Diagnosis on the Problem List?: No Quality: Stroke Does the patient have a stroke diagnosis?: No Physical Exam Vital Signs: Vital Signs: Last Vital Signs Temp 98.0 F 04/01/25 11:15 Pulse 68 04/01/25 15:09 Resp 16 04/01/25 15:09 BP 104/63 04/01/25 15:09 Pulse Ox 98 04/01/25 15:09 O2 Del Method Room Air 04/01/25 15:09 BMI result Body Mass Index 21.1 Appearance: Alert.? Oriented X3.? cvs: rrr, [id number] . res: clear to auscultation ,no rhonchii or wheezing abd: no rebound or guarding ,nt, bs present. ext pulses present , no cyanosis. neuro: axo3 , nonfocal. DS: Data Data Completed and Pending Completed studies during hospitalization [Text1]: Procedures Detoxification Services for Substance Abuse Treatment (01/24/25) Insertion of Endotracheal Airway into Trachea, Via Natural or Artificial Opening (06/18/24) Insertion of Infusion Device into Superior Vena Cava, Percutaneous Approach (06/18/24) Respiratory Ventilation, 24-96 Consecutive Hours (06/18/24) Ultrasonography of Superior Vena Cava, Guidance (06/18/24) Labs on day of discharge: Laboratory Results - last 24 hr 03/31/25 04/01/25 10:40 05:46 Hold Purple Top SEE NOTE Sodium 133 L Potassium 3.7 Chloride 99 Carbon Dioxide 25 Anion Gap 13 BUN 12 Creatinine 0.48 L Estim Creat Clear Calc 130.6 Estimated GFR > 60 Random Glucose 88 Calcium 9.0 Magnesium 1.7 TSH 0.95 Random Cortisol 8.1 Stl C. cayetanensis PCR Not Detected Stool Rotavirus A PCR Not Detected Stl Adenov F 40/41 PCR Not Detected Stool Astrovirus (PCR) Not Detected Stool Campylobacter PCR Not Detected Stool Cryptosporidium PCR Not Detected Stl Sh Tox Pr E STEC PCR Not Detected Stool E coli O157 PCR Not applicable Stl Enterotoxigenic E PCR Not Detected Stool EPEC (PCR) Not Detected Stool EAEC (PCR) Not Detected Stl E. histolytica PCR Not Detected Stool Giardia Lamblia PCR Not Detected Stl P. shigelloides PCR Not Detected Stool Salmonella PCR Not Detected Stool Sapovirus (PCR) Not Detected Stl Shigella/EIEC PCR Not Detected St Y.enterocolitica PCR Not Detected Stool Vibrio (PCR) Not Detected Stl Vibrio cholerae PCR Not Detected Stl Norovirus GI/GII PCR Not Detected Preliminary micro results at discharge 03/28/25 01:31 Blood Culture - Preliminary Blood - Venous No growth after 48 hours. 03/28/25 01:15 Blood Culture - Preliminary Blood - Venous No growth after 48 hours. Discharge Plan Discharge Anticipated Discharge Date/Time: 04/01/25 15:28 Patient Disposition: Home, Self-Care Discharge Diagnosis: electrolytes abnormalities ,cdiff diarrhae ,ch thrombocytopenia Referrals: [facility] [Provider Group] - 04/13/25 2:45 pm (Please attend your appointment at the [facility] on Monday April 14, 2025 @ 2:45pm.) Lobito Horton MD [Physician] - 1 Week Rupert Flores MD [Primary Care Provider] - 1 Week Discharge Medications: New vancomycin 125 mg Capsule 125 mg PO Q6H Qty: 48 0RF naltrexone 50 mg Tablet 50 mg PO DAILY Qty: 30 0RF gabapentin 100 mg Capsule 200 mg PO TID Qty: 180 0RF sodium chloride 1,000 mg Tablet,Soluble 1,000 mg PO TID Qty: 30 0RF levetiracetam 1,000 mg Tablet 1,000 mg PO BID Qty: 180 0RF potassium chloride 10 mEq capsule, extended release 10 meq PO DAILY Qty: 7 0RF Continued folic acid 1 mg Tablet 1 mg PO DAILY Qty: 30 0RF potassium chloride 20 mEq Tablet,Er Particles/Crystals 20 meq PO DAILY Qty: 30 0RF thiamine mononitrate (vit B1) 100 mg Tablet 100 mg PO DAILY Qty: 30 0RF multivitamin [One Daily Multivitamin] Tablet 1 tab PO DAILY omeprazole 20 mg capsule,delayed release(DR/EC) 20 mg PO DAILY Changed magnesium oxide 400 mg (241.3 mg magnesium) tablet 800 mg PO BID Qty: 28 0RF Discontinued quetiapine 50 mg tablet 50 mg PO BEDTIME sertraline 100 mg tablet 100 mg PO DAILY hydroxyzine HCl 25 mg tablet 50 mg PO DAILY topiramate 25 mg Tablet 25 mg PO BEDTIME Qty: 30 0RF levetiracetam 750 mg tablet 750 mg PO BID Qty: 60 0RF Discharge Orders: Discharge Order (Routine); Ordered 04/01/25 Ordered By: Karen Galeano Diet: Advance to usual diet Activity on Discharge: As tolerated Stand Alone Forms: Patient Portal Discharge page Print Language: Nigerian Other Ambulatory Orders: Basic Metabolic Panel (Routine) Timeframe: 1 Week Facility: [facility] - Location: Laboratory Ordered By: Karen Galeano Complete Blood Count no Diff (Routine) Timeframe: 1 Week Facility: [facility] - Location: Laboratory Ordered By: Karen Galeano Liver Panel (Routine) Timeframe: 1 Week Facility: [facility] - Location: Laboratory Ordered By: Karen Galeano Magnesium (Routine) Timeframe: 1 Week Facility: [facility] - Location: Laboratory Ordered By: Karen Galeano Care Plan Goals: as below. Health Concerns: Monitor CBC, BMP, liver panel,magnesium levels potassium 10 meq po qd and Magnesium 800 mg p.o. b.i.d. limited supply for 1 week . Further need decided after repeating patient electrolytes. Complete vancomycin 12 more days. Seroquel, sertraline, hydroxyzine, Topamax stopped as per psych. Added gabapentin 200 mg t.i.d. follow-up with PCP outpatient, consider outpatient psych follow-up. Follow-up with PCP and Nephrology outpatient, consider outpatient neurology evaluation if needed. If any new symptoms or worsening diarrhea please come to the nearest emergency room. Plan of Treatment: As above. Assessment: As above. Patient Instructions: Hyponatremia (DC), Hypokalemia (DC), Acute Diarrhea (GEN), Alcohol Withdrawal (DC), Hypomagnesemia (DC), Thrombocytopenia (DC)
[2025-04-04 17:24] LABS: Levetiracetam Keppra 9.7 mcg/mL (6.0-46.0)
== END 2025-04-01 17:06 | disposition home or self-care (01) | DRG 775 ==
LOC: HO.ED 23:18 → HO.EDOVER 23:57 → HO.IMC 03-28 13:03
PROVIDERS: Internal Medicine Critical Care Medicine; Nurse Practitioner Family; Physician Assistant Medical; Student in an Organized Health Care Education/Training Program; Admitting Provider Internal Medicine; Emergency Provider Emergency Medicine; PCP Family Medicine; Visit Provider Internal Medicine
DX: F10.139 Alcohol abuse with withdrawal, unspecified (principal); F10.129 Alcohol abuse with intoxication, unspecified; R56.9 Unspecified convulsions; D69.59 Other secondary thrombocytopenia; G40.909 Epilepsy, unspecified, not intractable, without status epilepticus; E87.1 Hypo-osmolality and hyponatremia; F41.1 Generalized anxiety disorder; F32.A Depression, unspecified; N39.0 Urinary tract infection, site not specified; E83.42 Hypomagnesemia; E87.6 Hypokalemia; Y90.8 Blood alcohol level of 240 mg/100 ml or more; Z71.41 Alcohol abuse counseling and surveillance of alcoholic; Z79.899 Other long term (current) drug therapy
CPT/HCPCS: 36415; 80048; 80053; 80076; 80177; 80307; 81001; 81025; 82436; 82533; 83690; 83735; 83935; 84100; 84132; 84133; 84295; 84300; 84443; 84550; 85025; 85610; 87040; 87086; 87324; 87493; 87507; 93005; 99285; J0696; J1953; J2560; J3411; J3475; J3480; J7120; S9485

== ENCOUNTER → 2025-03-27 18:39 | Outpatient (BNV) | payer OTHER, SELFPAY | PROVIDERS: Admitting Provider Internal Medicine; Emergency Provider Emergency Medicine; PCP Family Medicine; Visit Provider Internal Medicine Cardiovascular Disease | DX: R00.0 Tachycardia, unspecified (principal) | CPT/HCPCS: 93010 ==

== ENCOUNTER → 2025-03-27 23:37 | Outpatient (BNV) | payer OTHER, SELFPAY | PROVIDERS: Admitting Provider Internal Medicine; Emergency Provider Emergency Medicine; Visit Provider Internal Medicine | DX: R56.9 Unspecified convulsions (principal); E87.6 Hypokalemia; R79.89 Other specified abnormal findings of blood chemistry; F10.930 Alcohol use, unspecified with withdrawal, uncomplicated; E83.42 Hypomagnesemia; E87.1 Hypo-osmolality and hyponatremia | CPT/HCPCS: 99223; 99232; 99499 ==

== ENCOUNTER → 2025-03-27 23:37 | Outpatient (BNV) | payer OTHER, SELFPAY | PROVIDERS: Admitting Provider Internal Medicine; Emergency Provider Emergency Medicine; PCP Family Medicine; Visit Provider Nurse Practitioner Psychiatric/Mental Health | DX: F10.20 Alcohol dependence, uncomplicated (principal) | CPT/HCPCS: 99222 ==

== ENCOUNTER → 2025-03-27 23:37 | Outpatient (BNV) | payer OTHER, SELFPAY | PROVIDERS: Admitting Provider Internal Medicine; Emergency Provider Emergency Medicine; PCP Family Medicine; Visit Provider Nurse Practitioner Family | DX: E87.1 Hypo-osmolality and hyponatremia (principal); E87.6 Hypokalemia | CPT/HCPCS: 99222; 99232 ==

== ENCOUNTER → 2025-03-27 23:37 | Outpatient (BNV) | payer OTHER, SELFPAY | PROVIDERS: Admitting Provider Internal Medicine; Emergency Provider Emergency Medicine; PCP Family Medicine; Visit Provider Psychiatry & Neurology Neurology | DX: R56.9 Unspecified convulsions (principal) | CPT/HCPCS: 99222 ==

== ENCOUNTER 2025-05-22 08:32 | Inpatient (IN) | payer OTHER, SELFPAY ==
[2025-05-22] VITALS (7 sets, daily range): BP systolic 100–143; BP diastolic 62–92; PULSE 73–113; RESP 15–22; TEMP 36.4–37.1; O2SAT 97–100; BMI 18.5; BMI 19.4
--- NOTE | 2025-05-22 | ECG_ITS ---
Test Reason : SEIZURES Blood Pressure : */* mmHG Vent. Rate : 103 BPM Atrial Rate : 103 BPM P-R Int : 138 ms QRS Dur : 78 ms QT Int : 352 ms P-R-T Axes : 74 85 70 degrees QTcB Int : 461 ms Sinus tachycardia Otherwise normal ECG When compared with ECG of 27-Mar-2025 19:25, ST elevation now present in Inferior leads Referred By: Generic ED Physician Electronically Signed By: Luca Harris
[2025-05-22 09:19] LABS: MANUAL DIFF FLAG NO
[2025-05-22 09:20] LABS: Hematocrit 39.0 % (37.0-47.0); Hemoglobin 13.1 g/dl (12.0-16.0); Imm Gran Abs Auto 0.02 X10*3/uL (0.00-0.03); Imm Gran Pct Auto 0.3 % (0.0-0.4); Lymphocytes Absolute Auto 2.1 X10*3/uL (1.2-4.9); Mean Corpuscular HGB Conc 33.6 g/dl (31.0-35.0); Mean Corpuscular Hemoglobin 27.3 pg (27.0-33.0); Mean Corpuscular Volume 81.3 fL (80.0-98.0); NRBC Abs Auto 0.000 X10*3/uL (0.0-0.012); NRBC Pct Auto 0.0 /100WBC (0.0-0.2); Platelet Count 322 X10*3/uL (160-400); Red Blood Count 4.80 X10*6/uL (4.20-5.50); White Blood Count 6.9 X10*3/uL (4.8-10.8)
[2025-05-22] MEDS: diazePAM 10 MG/2 ML CARTRIDGE 5 MG IVPUSH (09:20)
--- NOTE | 2025-05-22 09:25 | PC.NURSE ---
pt jesseea from cousins here s/p witnessed seizure lasting approximately 15 minutes. no trauma noted by family per EMS. no incontinence. hx epilepsy/alcohol seizure withdrawal. compliant w/ keppra per pt. pt reports being sober x 3 months but recently relapsed after she moved into her sister's house. pt also reporting occasional cocaine use. pt reports last drank 6 nips x yesterday. upon ED arrival - updated CIWA = 16. patient extremely tremulous/diaphoretic/anxious. alert and oriented. answering questions/following commands appropriately. vss and up to date aside from being sinus tachycardic on the monitor - pt denies any chest pain/palpitations. pt reporting increased anxiety. 20gIV in the right wrist - labs obtained/sent to lab. ekg obtained by tech. IVF/medication administered per provider order. seizure precautions in place. on RA w/o difficulty. no sob/wob noted. respirations even/unlabored. plan of care ongoing. call [facility] placed within reach.
--- NOTE | 2025-05-22 09:35 | ED_ITS ---
HPI - Seizure General Chief Complaint: Seizure Stated Complaint: Seizure Time Seen by Provider: 05/22/25 09:02 Source: patient Mode of arrival: EMS History of Present Illness HPI Narrative: This is 34 years old the patient with a history of alcohol abuse presented to the emergency department after a witnessed seizure of about 50 minutes. Patient received 5 mg of Versed IM by the EMS she arrived postictal. Patient has also history of epilepsy besides alcohol abuse. MD complaint: seizure Onset (ago): day(s) (1) Description of Episode: tonic-clonic movement Duration of episode: 15 Witnessed: Yes - by Bystander Trauma: No Seizure History: Yes Place: Home Possible Precipitating Event: alcohol withdrawal Associated symptoms: denies other symptoms Related Data Home Medications ?Medication ?Instructions ?Recorded ?Confirmed omeprazole 20 mg capsule,delayed 20 mg PO DAILY@0630 0 03/28/25 05/22/25 release magnesium oxide 400 mg (241.3 mg 400 mg PO BID 5 05/22/25 magnesium) tablet multivitamin-iron 9 mg-folic acid 1 tab PO DAILY 05/2205/22/25 400 mcg-calcium and minerals tablet (Therapeutic-M) potassium chloride 10 mEq 10 meq PO DAILY 05/22/25 capsule,extended release Previous Rx's ?Medication ?Instructions ?Recorded folic acid 1 mg tablet 1 mg PO DAILY #30 tabs 05/24 thiamine mononitrate (vit B1) 100 100 mg PO DAILY #30 tabs 01/26/25 mg tablet gabapentin 100 mg capsule 200 mg (2 x 100 mg) PO TID # 180 04/01/25 caps levetiracetam 1,000 mg tablet 1,000 mg PO BID #180 tab s 04/01/25 naltrexone 50 mg tablet 50 mg PO DAILY #30 tabs 11/25 sodium chloride 1,000 mg soluble 1,000 mg PO TID #30 t abs 04/01/25 tablet Allergies Allergy/AdvReac Type Severity Reaction Status Date / Time cat dander AdvReac Itching Verified 05/22/25 08:49 dog dander AdvReac Itching Verified 05/22/25 08:49 Iodinated Contrast Media AdvReac Hives Verified 03/27/25 18:23 (Contrast Dye) Review of Systems 2 Constitutional: Constitutional: Reports no additional constitutional complaints Cardiovascular: Cardiovascular: Reports no additional cardiovascular complaints Musculoskeletal: Musculoskeletal: Reports no additional musculoskeletal complaints [facility] Past Medical History Attestation statement: The following information was validated with the patient. Medical History Alcohol use disorder, severe, dependence Hypomagnesemia Acute hyponatremia Acute urinary retention Acute hypokalemia Epileptic seizure Alcohol withdrawal Seizure Acute dehydration Acute hypokalemia Acute alcohol intoxication Acute respiratory failure Acute hypokalemia Acute hyponatremia Alcohol withdrawal Status epilepticus Withdrawal seizures Depression Alcoholism Social History Social History Household Members: Significant Other Household Members Other:: bf, mom Housing: Apartment Do you presently have visiting nurse or other home services: No Unable to assess alcohol history related to: Unable to respond Alcohol intake: current Alcohol intake frequency: a few times a week Alcohol type: hard liquor Comment: pt refused bed alarm Patient Tobacco Use Status: Tobacco use Unknown Tobacco use type: Smokeless Tobacco Smoked in Last 30 Days: Yes e-Cigarette/Vaping Use: Currently Using Use of substances other than those prescribed or required for medical reasons: Yes Substance Use Type: Crack/Cocaine Advance Directives: No Advance Directives Information Provided: Yes Patient : No service: No Physical Exam 2 Vital Signs: Vital Signs: Last Vital Signs Temp 98.2 F 05/22/25 14:51 Pulse 92 05/22/25 14:51 Resp 18 05/22/25 14:51 BP 100/62 05/22/25 14:51 Pulse Ox 97 05/22/25 14:51 O2 Del Method Room Air 05/22/25 14:51 BMI result Body Mass Index 18.5 Const: General: cooperative Nutritional Appearance: malnourished O rientation/consciousness: patient oriented x3 HEENT: Other: No sign of trauma Head: Yes normal to inspection General nose exam: Normal external nose present Face and sinus: Yes normal facial exam Mouth: Normal oral and palatal mucosa present Neck: Neck: Yes normal visual inspection Chest: Chest palpation & inspection: normal inspection of the chest Resp: Effort & Inspection: normal respiratory effort Auscultation: clear to auscultation bilaterally Cardio: Jugular venous distension: no JVD Rate: regular rate Rhythm: r egular rhythm GI: Inspection: Yes normal to inspection Palpation (GI): Soft to palpation, not firm and nontender Percussion: Yes normal to percussion Auscultation: normal bowel sounds : General: Yes no CVA tenderness Back/Spine/Pelvis: Back: no CVA tenderness Thoracic/Lumbar Spine: thoracic and lumbar spine normal to inspection Pelvis: no pain with anterior-posterior compression Skin: General skin exam: no rashes or lesions noted and elasticity normal L esions: no lesions Rashes: no rashes Neuro: General: patient oriented x3 Cranial nerves: Yes CN's II-XII intact bilaterally Cognition (Neuro): normal cognition Motor exam (neuro): 5/5 motor strength present throughout Coordination: [id number] test normal Extrem: General: Yes normal to inspection Right upper extremity: normal to inspection Right lower extremity: normal to inspection Course Reevaluation(s) Reevaluation #1: fluids infusing,diazepam given Time: 09:40 Medications Administered Generic Name Dose Route Start Last Admin Trade Name Freq PRN Reason Stop Dose Admin Thiamine HCl 100 mg/ Sodium 101 mls @ 202 mls/hr 05/22/25 11:25 05/22/25 12:44 Chloride IV Infused DAILY ARTURO Infusion Dextrose/Lactated Ringer's 1,000 mls @ 125 mls/hr 05/22/25 12:15 05/22/25 12:39 D5lr IVCONT 125 mls/hr .Q8H ARTURO Administration Discontinued Medications Generic Name Dose Route Start Last Admin Trade Name Freq PRN Reason Stop Dose Admin Diazepam 5 mg 05/22/25 09:05 05/22/25 09:20 Diazepam 10 Mg/2 Ml Cartridge IVPUSH 05/22/25 09:06 5 mg STAT STA Administration Diazepam 5 mg 05/22/25 11:23 05/22/25 13:08 Diazepam 10 Mg/2 Ml Cartridge IVPUSH 05/22/25 11:24 Not Given STAT STA Gabapentin 200 mg 05/22/25 15:00 05/22/25 14:50 Gabapentin 100 Mg Capsule PO 200 mg TID ARTURO Administration Gabapentin 400 mg 05/22/25 11:58 05/22/25 13:48 Gabapentin 400 Mg Capsule PO 05/22/25 11:59 400 mg ONCE STA Administration Sodium Chloride 1,000 mls @ 999 mls/hr 05/22/25 09:30 05/22/25 11:40 Ns IVCONT 05/22/25 10:30 Infused .Q1H1M ARTURO Infusion Lactated Ringer's 1,000 mls @ 999 mls/hr 05/22/25 12:04 05/22/25 13:26 Lr IV 05/22/25 13:04 Infused .Q1H1M STA Infusion Levetiracetam 1,500 mg 05/22/25 09:35 05/22/25 10:02 Levetiracetam 500 Mg Tablet PO 05/22/25 09:36 1,500 mg ONCE ONE Administration Phenobarbital Sodium 201 mg 05/22/25 10:00 05/22/25 10:03 Phenobarbital Sodium 130 Mg/Ml Im Once IM 05/22/25 10:01 201 mg ONCE ONE Administration Phenobarbital Sodium 151 mg 05/22/25 13:00 05/22/25 12:39 Phenobarbital Sodium 130 Mg/Ml Vial Im Q3hx2 IM 05/22/25 16:01 151 mg Q3H ARTURO Administration Medical Decision Making Medical Decision Making [facility] Narrative: Patient presented with a alcohol withdrawal seizure we will administer benzodiazepine phenobarbital IV fluids 10:47 she is doing better phenobarbital protocol started anticipate admission Differential Diagnosis Differential Diagnoses: The differential diagnosis associated with the presentation includes Alcohol withdrawal/seizure Admission/Observation Consideration of admission/observation: Escalation of care including admission/observation considered Consult Healthcare Provider Management of the patient was discussed with: Hospitalist Lab Data [facility] Lab Attestation statement: I reviewed the patient's lab results. 05/22/25 09:15 05/22/25 09:15 Labs: Lab Results 05/22/25 Range/Units 09:15 WBC 6.9 (4.8-10.8) X10*3/uL RBC 4.80 (4.20-5.50) X10*6/uL Hgb 13.1 (12.0-16.0) g/dl Hct 39.0 (37.0-47.0) % MCV 81.3 (80.0-98.0) fL MCH 27.3 (27.0-33.0) pg MCHC 33.6 (31.0-35.0) g/dl RDW 14.6 (11.0-16.0) % Plt Count 322 D (160-400) X10*3/uL MPV 8.8 L (9.4-12.3) fL Immature Gran % (Auto) 0.3 (0.0-0.4) % Neut % (Auto) 61.8 (45-73) % Lymph % (Auto) 31.1 (20-40) % Phillips % (Auto) 5.5 (2-11) % Eos % (Auto) 0.9 (0-4) % Baso % (Auto) 0.4 (0-2) % Lymph # (Auto) 2.1 (1.2-4.9) X10*3/uL Phillips # (Auto) 0.4 (0.1-1.2) X10*3/uL Eos # (Auto) 0.1 (0.0-0.4) X10*3/uL Baso # (Auto) 0.0 (0.0-0.2) X10*3/uL Abs Immat Gran (auto) 0.02 (0.00-0.03) X10*3/uL Absolute Neuts (auto) 4.3 (2.0-8.3) x10*3/uL Absolute Nucleated RBC 0.000 (0.0-0.012) X10*3/uL Nucleated RBC % (auto) 0.0 (0.0-0.2) /100WBC Sodium 144 (135-145) mmol/L Potassium 3.5 (3.3-5.1) mmol/L Chloride 107 (96-108) mmol/L Carbon Dioxide 26 (22-29) mmol/L Anion Gap 15 (12-20) BUN 8 L (9-16) mg/dL Creatinine 0.56 (0.5-1.4) mg/dL Estim Creat Clear Calc 112.5 Estimated GFR > 60 Random Glucose 95 (60-115) mg/dL Lactic Acid 2.7 H* (0.5-2.0) mmol/L Calcium 8.3 L D (8.4-10.2) mg/dL Magnesium 1.8 (1.6-2.6) mg/dL Total Bilirubin 0.2 (0.0-1.0) mg/dL AST 32 H (5-31) U/L ALT 14 (0-31) U/L Alkaline Phosphatase 111 (39-117) U/L Total Protein 7.6 (6.5-8.0) g/dL Albumin 4.0 (3.5-5.0) g/dL Ethyl Alcohol 280 mg/dL Independent Historian Clinical information obtained from an independent historian. History obtained from or confirmed by: EMS EMS External Record Review External record reviewed: Inpatient record Chronic Conditions Patient?s care impacted by: Other alcoholism/seizure disorder Social Determinants Patient?s care significantly limited by Social Determinants of Health including: Alcoholism and drug addiction in family Critical Care Time Critical Care Time Critical Care Time: Yes Total Critical Care Time: 60 Attestation: IV diazepam/phenobarbital Discharge Plan Discharge Clinical Impression: Acidosis, lactic Alcohol withdrawal seizure Qualifiers: Complication of substance-induced condition: uncomplicated Qualified Code(s): F 10.930 - Alcohol use, unspecified with withdrawal, uncomplicated Patient Disposition: Admitted As Inpatient
[2025-05-22 09:36] LABS: Alanine Aminotransferase 14 U/L (0-31); Albumin Level 4.0 g/dL (3.5-5.0); Alkaline Phosphatase 111 U/L (39-117); Anion Gap 15 (12-20); Aspartate Amino Transferase 32 U/L (5-31); Blood Urea Nitrogen 8 mg/dL (9-16); Calcium 8.3 mg/dL (8.4-10.2); Carbon Dioxide 26 mmol/L (22-29); Chloride 107 mmol/L (96-108); Creatinine Clr Calc Pharmacy 112.5; Estimated Glomerular Filt Rate > 60; Magnesium 1.8 mg/dL (1.6-2.6); Potassium 3.5 mmol/L (3.3-5.1); Sodium 144 mmol/L (135-145); Total Protein 7.6 g/dL (6.5-8.0)
[2025-05-22] MEDS: PHENobarbitaL sodium 130 MG/ML IM ONCE 201 MG IM (10:03)
--- NOTE | 2025-05-22 10:05 | PC.NURSE ---
pt medicated per provider order. pills crushed w/ applesauce per pt request. pt swallowed medication w/o difficulty. otherwise vss and up to date. nsr on the alarm security or surveillance monitor. on RA w/o difficulty. seizure precautions remain in place. plan of care ongoing. call mcgovern placed within reach.
--- OUTSIDE RECORDS SUMMARY | 2025-05-22 11:04 | XMS_ITS | Clinical Summary ---
Author Organization [facility] Address [address] [place] [id number] Care Team Providers Care Services Clerk Name Role Phone Unavailable Primary Care Provider Unavailabl e Allergies No known active allergies Medications levETIRAcetam (KEPPRA) 750 MG tabletIndication s:Seizure (HCC) Take 1 tablet (750 mg total) by mouth 2 (two) times a day. 60 tablet 09/21/2024 Active naltrexone (REVIA) 50 MG tabletIndication s:Alcohol abuse Take 1 tablet (50 mg total) by mouth daily. 30 tablet 09/21/2024 Active Active Problems Problem Noted Date Diagnosed Date Seizure 09/16/2024 Social History Tobacco Use Types Packs/Day Years Used Date Smoking Tobacco: Never Assessed [facility] Utilities Answer Date Recorded In the past 12 months has [employer], gas, oil, or water company threatened to [...] any time in the past 12 m [facility], were you homeless or living in a half-way (including now)? Patient unable to answer 09/18/2024 Comments Unknown Sex and Gender Information Value Date Recorded Sex Assigned at Female 09/16/2024 9:22 PM EST Legal Sex Female 1:22 PM EST Gender Identity Female 09/16/2024 9:22 PM EST Sexual Orientation Heterosexual (straight) 09/16 9:22 PM EST Last Filed Vital Signs Vital Sign Reading Time Taken Comments Blood Pressure 128/67 09/21/2024 1:40 PM EST Pulse 81 09/21/2024 4:17 AM EST Temperature 36.8 C (98.2 F) 09/21/2024 1:40 PM EST Respiratory Rate 18 09/21/2024 1:40 PM EST [...] series) 2009 Pap Smear (Ages 21-65) 2011 COVID-19 Vaccine (1 - 2023-2 5 season) 2024 Influenza Vaccine 06/01/2025 HIV Screening Completed 09/17/2024 HPV Vaccines Aged [...] CMIA Nonreactive Nonreactive 09/18/2024 11:49 AM EST [facility] Comment: Results show no evidence of infection by HIV 1/2. If clinically indicated, repeat CMIA or test by nucleic acid amplification. HIV 1/2 Antigen/Antibody CMIA reflex to confirmation AND HIV-1 RNA viral load recommended in patients who are taking or have recently taken PrEP. Blood Serum specimen / Unknown 09/17/2024 1:44 PM EST 09/17/2024 2:04 PM EST us Sergio Smith PA-C LAB BLOOD ORDERABLES Final Resul t [facility] [address] [place] [address], from Last 3 Months or Most Recently Relevant to Health Maintenance Insurance [facility] [employer] [facility] Advance Directives * Full Code (Latest Code Status on File) Date Activated Date Inactivated Comments 09/16/2024 9:32 PM Healthcare Agents on File Name Relationship Healthcare Agent Relationshi p Communication Tonia Barraza Parent 4. Next of Kin (Spouse, Adult Child, Parent, Adult Sibling, Grandparent) Dominic Barraza Parent 4. Next of Kin (Spouse, Adult Child, Parent, Adult Sibling, Grandparent)
--- OUTSIDE RECORDS SUMMARY | 2025-05-22 11:04 | XMS_ITS | Clinical Summary ---
Author Organization [facility] Address [address] [place] [address] Care Team Providers Care Political Advisor Name Role Phone Rupert Flores MD Primary Care Pr ovider Allergies Active Allergy Reactions Criticality Noted Date Comments Cat Dander Itching 05/17/2014 Dog Dander Itching 05/17/2014 Other Itching 05/17/2014 seasonal Medications folic acid (FOLVITE) 1 mg tablet Take 1 Tablet by mouth daily. 4 Active gabapentin (NEURONTIN) 100 mg capsuleIndication s:Anxiety and depression,Alcoho l abuse Take 1 capsule (100 mg total) by mouth 3 (three) times a day. 5 Active levETIRAcetam (KEPPRA) 1,000 mg tabletIndications :Seizure disorder (CMS/HCC V24, CMS/HCC V28) Take 1 tablet (1,000 mg total) by mouth 2 (two) times a day. 5 Active vancomycin (VANCOCIN) 125 mg capsuleIndication s:C. difficile diarrhea Take 1 capsule (125 mg total) by mouth every 6 (six) hours. 5 Active sodium chloride 1,000 mg soluble tabletIndications :Hyponatremia Take 1 tablet (1 g total) by mouth 3 (three) times a day. 5 Active potassium chloride (MICRO-K) 10 mEq CR capsuleIndication s:Hypokalemia Take 1 capsule (10 mEq total) by mouth 1 (one) time each day. 90 capsule 1 5 Active busPIRone (BUSPAR) 5 mg tabletIndications :Anxiety and depression Take 1 tablet (5 mg total) by mouth 2 (two) times a day. 180 each 1 5 10/06/20 25 Active magnesium oxide (MAG-OX) 400 mg (241.3 elemental magnesium) tabletIndications :Hypomagnesemia Take 1 tablet (400 mg total) by mouth 2 (two) times a day. 180 each 1 5 10/06/20 25 Active naltrexone (DEPADE) 50 mg tabletIndications :Alcohol abuse Take 1 tablet (50 mg total) by mouth 1 (one) time each day. 90 each 1 5 10/06/20 25 Active omeprazole (PriLOSEC) [address] capsuleIndication s:Duodenitis without bleeding Take 1 capsule (20 mg total) by mouth 1 (one) time each day. 90 each 1 5 10/06/20 25 Active QUEtiapine (SEROquel) 50 mg tablet Take 1 tablet (50 mg total) by mouth at bedtime. 90 each 5 07/08/20 25 Active topiramate (TOPAMAX) 25 mg tablet Take 1 tablet (25 mg total) by mouth at bedtime. 90 each 5 07/08/20 25 Active One Daily Multivitamin tablet TAKE 1 TABLET BY MOUTH EVERY DAY 90 tablet 1 5 Active multivitamin (MULTIPLE VITAMINS ORAL) Take 1 Tablet by mouth daily. 4 05/02/20 25 Discontinu ed(Duplica te order) multivitamin-iron -minerals-folic acid (THERAPEUTIC-M) 27-0.4 mg tabletIndications :Hypokalemia Take 1 tablet by mouth 1 (one) time each day. 90 tablet 1 5 05/02/20 25 Discontinu ed(Duplica te order) Active Problems Problem Noted Date Diagnosed Date Thrombocytopenia (CMS/HCC V24) 04/09/2025 Assessment & Plan (04/09/2025 2:20 PM EDT): Likely related to alcohol use. Will repeat CBC Orders: CBC and differential; Future C. difficile diarrhea 04/09/2025 Assessment & Plan (04/09/2025 2:20 PM EDT): She will complete p.o. vancomycin course and return for repeat C. difficile once the antibiotics are completed Orders: Clostridium difficile toxin; Future Hyponatremia 04/09/2025 Assessment & Plan (04/09/2025 2:20 PM EDT): Will update labs. If hyponatremia is resolved, Seroquel and topiramate will be sent Referred to nephrology For now she will continue with the sodium tablets 1G 3 times daily Orders: Comprehensive metabolic panel; Future Ambulatory referral to Nephrology; Future Hypomagnesemia 04/09/2025 Assessment & Plan (04/09/2025 2:20 PM EDT): Continue magnesium 500 mg twice daily. Will update labs Orders: Magnesium; Future magnesium oxide (MAG-OX) 400 mg (241.3 elemental magnesium) tablet; Take 1 tablet (400 mg total) by mouth 2 (two) times a day. Hypokalemia 04/09/2025 Assessment & Plan (04/09/2025 2:20 PM EDT): She will continue with potassium 10meq daily indefinitely. Will update labs Orders: potassium chloride (MICRO-K) 10 mEq CR capsule; Take 1 capsule (10 mEq total) by mouth 1 (one) time each day. ujskufifoeah-fsci-urvqrlke-folic acid (THERAPEUTIC-M) 27-0.4 mg tablet; Take 1 tablet by mouth 1 (one) time each day. Comprehensive metabolic panel; Future Elevated liver enzymes 04/09/2025 Assessment & Plan (04/09/2025 2:20 PM EDT): Related to alcohol use. Will update CMP Orders: CBC and differential; Future Chronic migraine without aur a without status migrainosus, not intractable 07/12/2024 Assessment & Plan (04/09/2025 2:20 PM EDT): Topiramate is on hold for now pending labs that show resolution of hyponatremia Duodenitis determined by biopsy 07/12/2024 Fatty liver 07/12/2024 Seizure disorder ([facility] V24, [facility] V28) 07/02 Assessment & Plan (04/09/2025 2:20 PM EDT): Referred to neurology, she will also contact with [facility] neurology to schedule an appointment. Continue Keppra 1000mg twice daily Orders: Ambulatory referral to Neurology; Future Glaucoma 02/03/2023 Subclinical hypothyroidism 02/03/2023 Insomnia 09/22/2021 Assessment & Plan (04/09/2025 2:20 PM EDT): Poorly controlled since she has been off the Seroquel. If the sodium level is back to normal this will be sent Alcohol use disorder 02/22/2019 Overview (09/05/2024): Detox 02/17 [place] Assessment & Plan (04/09/2025 2:20 PM EDT): Continue naltrexone and gabapentin 100 mg 3 times daily Orders: naltrexone (DEPADE) 50 mg tablet; Take 1 tablet (50 mg total) by mouth 1 (one) time each day. Hemoglobin A1c; Future Anxiety and depression 02/22/2019 Assessment & Plan (04/09/2025 2:20 PM EDT): Sertraline, Seroquel and hydroxyzine were discontinued in the hospital She is interested in resuming Seroquel. Advised that this can be send pending repeat sodium testing She is provided with behavioral health resources and is advised that she can walk into [facility] today to establish care with a psychiatrist Continues to be followed by both a psychiatrist and a therapist. States that she may have an appointment at [facility] but she is unsure We will start BuSpar 5 mg twice daily for anxiety Advised She can use this as needed as well Continue gabapentin 100 mg 3 times daily She Mentioned Xanax as an option for her anxiety. I Advised that given her history of polysubstance abuse and her recent UDS that was positive for cocaine I cannot prescribe any controlled substances to her due to their addictive properties. She expressed understanding. Orders: busPIRone (BUSPAR) 5 mg tablet; Take 1 tablet (5 mg total) by mouth 2 (two) times a day. Scoliosis 09/04/2010 Attention deficit hyperactivity disorder (ADHD) 12/29/2005 Encounters Date Type Department Care Team Description 04/10/2025 Telephone Adult [address] [phone] Natalie Ortiz RN 04/09/2025 1:00 PM EDT Office Visit Adult [address] [phone] Rupert Flores MD Hospital discharge follow-up (Primary Dx); Hypokalemia; Hypomagnesemia; Hyponatremia; C. difficile diarrhea; Thrombocytopenia (CMS/HCC V24); Chronic migraine without aura without status migrainosus, not intractable; Anxiety and depression; Insomnia, unspecified type; Seizure disorder (CMS/HCC V24, CMS/HCC V28); Alcohol abuse; Elevated liver enzymes; Duodenitis without bleeding 04/02/2025 Telephone Adult [address] [phone] Rupert Flores MD Hospital Follow-up; Alcohol Intoxication 03/16/2025 Telephone Adult [address] [phone] Rupert Flores MD Hospital Follow-up from Last 3 Months Immunizations Name Administration Dates Next Due DTP 10/22/1994, 2,04/04/1991,1990,1990 VKaA-AIO-RVC (Pentacel) 2mo to less than 5yo 01/08/1992,04/04/1991,02/01/1991,1990 HPV, Quadrivalent 11/29/2019,05/17/2014,08/31/20 08 Hepatitis B (Sbebuin-U-Tusns , Recombivax HB-Adult) 19yo and older 01/25/2003,08/10/2002 [...] Left PROCEDURE: HISTORICAL CATARACT REMOVAL ESOPHAGOGASTRODUODENOSCOPY PROCEDURE: RI ESOPHAGOGASTRODUODENOSCOPY TRANSORAL DIAGNOSTIC; COMMENT: Grade D esophagitis [...] Fatty liver 07/12/2024 Glaucoma 02/03/2023 Seizure disorder (CMS/HCC V2 4, CMS/HCC V28) 07/12/2024 Family History Medical History Relation Name [...] Sign Reading Time Taken Comments Blood Pressure 96/66 04/09/2025 1:09 PM EDT Pulse 88 04/09/2025 1:09 PM EDT Temperature 36.9 C (98.4 F) 04/09/2025 1:09 PM EDT Respiratory Rate 18 04/09/2025 1:09 PM EDT Oxygen Saturation 96% 11/28/2024 12:15 PM EST Inhaled Oxygen Concentration - - Weight 51.3 kg (113 lb) 04/09/2025 1:09 PM EDT Height 165.1 cm (5' 5 ) 04/09/2025 1:09 PM EDT Body Mass Index 18.8 04/09/2025 1:09 PM EDT Plan of Treatment Upcoming Encounters Date Type Department Care Team (Late st Contact Info) Description 07/10/2025 2:00 PM EDT Consult [facility] [address] [phone] So Malcolm MD [address] [phone] 07/10/2025 4:30 PM EDT Office Visit Adult Medicine [address] [phone] Smita Rabago PA [address] [place] [address] Health Maintenance Due Date Last Done Comments Hepatitis A Vaccines (1 of 2 - Risk 2-dose series) 2009 Pneumococcal Vaccine: Pediatrics (0 to 5 Years) and At-Risk Patients (6 to 49 Years) (1 of 2 - PCV) 2009 COVID-19 Vaccine (2023- season) 2024 Cervical Cancer Screening: HPV 11/29/2024 11/29/2019 Influenza Vaccine (#1) 2025 Social Influencers of Health Screening 11/28/2025 11/28/2024 [...] 03/06/2015 HPV Vaccines Completed 11/29/2019, 05/01, 08/31/2008 Depression Screening Completed 11/28/2024, 07/12/20 24 Meningococcal ACWY Vaccine Aged Out N o longer eligible based on patient's age to complete this topic Meningococcal B Vaccine Aged Out No l onger eligible based on patient's age to complete this topic RSV Immunization Patients Under 20 months Aged Out No longer eligible based on patient's age to complete this topic Procedures Procedure Name Priority Date/Time Associated Diagnosis Comments CBC WITH AUTO DIFFERENTIAL Routine 04/09/2025 2:07 PM EDT Thrombocytopenia ([facility]/HCC V24) CBC AND DIFFERENTIAL Routine 04/09/2025 2:07 PM EDT Thrombocytopenia (CMS/HCC V24) COMPREHENSIVE METABOLIC PANEL Routine 04/09/2025 2:07 PM EDT Hypokalemia Hyponatremia MAGNESIUM Routine 04/09/2025 2:07 PM EDT Hypomagnesemia HM DEPRESSION SCREENING Routine 07/12/2024 LIPID PANEL Routine 07/12/2024 HM HPV Routine 11/29/2019 HEPATITIS C SCREENING Routine 03/06/2015 HM HIV SCREENING Routine 03/06/2015 from Last 3 Months or Most Recently Relevant to Health Maintenance Results * (ABNORMAL) CBC auto differential (04/09/2025 2:07 PM EDT) [facility] WBC 6.6 4.8 - 10.8 K/mcL LAB HEMETOLOGY METHOD 04/09/2025 5:02 PM [facility] RBC 4.30 3.80 - 4.80 M/mcL LAB HEMETOLOGY METHOD 04/09/2025 5:02 PM [facility] Hemoglobin 12.5 11.5 - 16.0 g/dL LAB HEMETOLOGY METHOD 04/09/2025 5:02 PM [facility] Hematocrit 41.0 35.0 - 47.0 % LAB HEMETOLOGY METHOD 04/09/2025 5:02 PM [facility] MCV 96.5 79.0 - 98.0 FL LAB HEMETOLOGY METHOD 04/09/2025 5:02 PM [facility] MCH 29.4 27.0 - 32.0 pcg LAB HEMETOLOGY METHOD 04/09/2025 5:02 PM [facility] MCHC 30.5(L) 32.0 - 37.0 g/dL LAB HEMETOLOGY METHOD 04/09/2025 5:02 PM [facility] RDW 15.4(H) 11.0 - 15.0 % LAB HEMETOLOGY METHOD 04/09/2025 5:02 PM [facility] Platelets 618(H) 130 - 400 K/mcL LAB HEMETOLOGY METHOD 04/09/2025 5:02 PM [facility] MPV 9.5 7.0 - 11.0 FL LAB HEMETOLOGY METHOD 04/09/2025 5:02 PM [facility] NRBC 0.0 <1.0 % LAB HEMETOLOGY METHOD 04/09/2025 5:02 PM [facility] NRBC Absolute 0.00 <0.10 K/mcL LAB HEMETOLOGY METHOD 04/09/2025 5:02 PM [facility] Neutrophils Relative 51.6 % LAB HEMETOLOGY METHOD 04/09/2025 5:02 PM [facility] Lymphocytes Relative 34.2 % LAB HEMETOLOGY METHOD 04/09/2025 5:02 PM [facility] Monocytes Relative 8.2 % LAB HEMETOLOGY METHOD 04/09/2025 5:02 PM [facility] Eosinophils Relative 3.2 % LAB HEMETOLOGY METHOD 04/09/2025 5:02 PM [facility] Basophils Relative 2.3 % LAB HEMETOLOGY METHOD 04/09/2025 5:02 PM [facility] Immature Granulocytes Relative 0.5 % LAB HEMETOLOGY METHOD 04/09/2025 5:02 PM [facility] Neutrophils Absolute 3.39 1.50 - 7.00 K/mcL LAB HEMETOLOGY METHOD 04/09/2025 5:02 PM [facility] Lymphocytes Absolute 2.25 1.00 - 5.00 K/mcL LAB HEMETOLOGY METHOD 04/09/2025 5:02 PM [facility] Monocytes Absolute 0.54 0.20 - 1.00 K/mcL LAB HEMETOLOGY METHOD 04/09/2025 5:02 PM [facility] Eosinophils Absolute 0.21 0.00 - 0.50 K/mcL LAB HEMETOLOGY METHOD 04/09/2025 5:02 PM [facility] Basophils Absolute 0.15 0.00 - 0.20 K/mcL LAB HEMETOLOGY METHOD 04/09/2025 5:02 PM [facility] Immature Granulocytes Absolute 0.03 0.00 - 0.03 K/mcL LAB HEMETOLOGY METHOD 04/09/2025 5:02 PM EDT [facility] Blood Venous blood specimen / Unknown Venipuncture / Unknown 04/09/2025 2:07 PM EDT 04/09/2025 2:07 PM EDT Rupert Flores MD LAB BLOOD ORDERA BLES Final Result Performing Organization Address [facility]/ZIP Co de Phone Number [facility] [address] [place] [address], [place] [phone] * (ABNORMAL) Magnesium (04/09/2025 2:07 PM EDT) Magnesium 1.7(L) 1.9 - 2.6 mg/dL LAB CHEMISTRY METHOD 04/09/2025 6:55 PM EDT [facility] Blood Venous blood specimen / Unknown Venipuncture / Unknown 04/09/2025 2:07 PM EDT 04/09/2025 2:07 PM EDT Rupert Flores MD LAB BLOOD ORDERA BLES Final Result Performing Organization Address [facility]/ZIP Co de Phone Number [facility] [address] [place] [address], [place] [phone] * Comprehensive metabolic panel (04/09/2025 2:07 PM EDT) Sodium 135 133 - 145 mmol/L LAB CHEMISTRY METHOD 04/09/2025 6:55 PM EDT [facility] Potassium 4.1 3.5 - 5.5 mmol/L LAB CHEMISTRY METHOD 04/09/2025 6:55 PM EDT [facility] Chloride 106 96 - 110 mmol/L LAB CHEMISTRY METHOD 04/09[facility]2025 [facility] CO2 23 21 - 32 mmol/L LAB CHEMISTRY METHOD 04/09/2025 6:55 PM [facility] Anion Gap 6 3 - 11 LAB CHEMISTRY METHOD 04/09/2025 6:55 PM [facility] Glucose 73 70 - 100 mg/dL LAB CHEMISTRY METHOD 04/09/2025 6:55 PM [facility] BUN 5 5 - 25 mg/dL LAB CHEMISTRY METHOD 04/09/2025 6:55 PM [facility] Creatinine 0.65 0.50 - 1.10 mg/dL LAB CHEMISTRY METHOD 04/09/2025 6:55 PM [facility] eGFR 119 >=60 mL/min/1. 73m2 LAB CHEMISTRY METHOD 04/09/2025 6:55 PM [facility] Comment:Calculation based on the Chronic Kidney Disease Epidemiology Collaboration (CKD-EPI) equation refit without adjustment for race. BUN/Creatinine Ratio 7.7 LAB CHEMISTRY METHOD 04/09/2025 6:55 PM [facility] Calcium 9.5 8.5 - 10.5 mg/dL LAB CHEMISTRY METHOD 04/09/2025 6:55 PM [facility] AST (SGOT) 14 10 - 42 unit/L LAB CHEMISTRY METHOD 04/09/2025 6:55 PM [facility] ALT (SGPT) 25 10 - 60 unit/L LAB CHEMISTRY METHOD 04/09/2025 6:55 PM [facility] Alkaline Phosphatase 111 42 - 121 unit/L LAB CHEMISTRY METHOD 04/09/2025 6:55 PM [facility] Total Protein 7.2 6.0 - 8.0 g/dL LAB CHEMISTRY METHOD 04/09/2025 6:55 PM [facility] Albumin 3.8 3.2 - 5.0 g/dL LAB CHEMISTRY METHOD 04/09/2025 6:55 PM EDT [facility] Total Bilirubin 0.2 0.0 - 1.4 mg/dL LAB CHEMISTRY METHOD 04/09/2025 6:55 PM EDT [facility] Blood Venous blood specimen / Unknown Venipuncture / Unknown 04/09/2025 2:07 PM EDT 04/09/2025 2:07 PM EDT Result [facility] Rupert Flores MD LAB BLOOD ORDERA BLES Final Result [facility] [address] [place] [address], [place] [phone] * Depression Screening (07/12/2024) [facility] Depression Screening abstracted Result [facility] Provider HEALTH MAINTENANCE Final Result * Lipid panel (07/12/2024) [facility] LDL/HDL Ratio 2 0 - 4 Triglycerides 65 0 - 150 mg/dL Cholesterol 166 0 - 200 mg/dL HDL 72 >=40 mg/dL LDL Cholesterol 81 0 - 100 mg/dL Blood Venous blood specimen / Unknown Result [facility] Historical Provider LAB BLOOD ORDERABLES Mel l Result * Cervical Cancer Screening: HPV (11/29/2019) [facility] Cervical Cancer Screening: HPV no interpretation , abstracted Result [facility] Historical Provider HEALTH MAINTENANCE Final Result * HIV Screening (03/06/2015) [facility] HIV Screening abstracted Historical Provider HEALTH MAINTENANCE Final Result * Hepatitis C Screening (03/06/2015) [facility] Hepatitis C Screening abstracted Historical Provider HEALTH MAINTENANCE Final Result from Last 3 Months or Most Recently Relevant to Health Maintenance Insurance [facility] Care Teams Political Advisor Relationship Specialty Start Date End Date Rupert Flores MD [address] [place], [place] PCP - General Internal Medicine 05/17/22
--- OUTSIDE RECORDS SUMMARY | 2025-05-22 11:04 | XMS_ITS ---
Author Name [facility] Organization Unknown Results Test Name/Text Value Interpretation Date Range Source Sodium SerPl-sCnc 132.0 mmol/L Below low normal 09/21/2024 1 36 - 145 HHCCT Sodium SerPl-sCnc 135.0 mmol/L Below low normal 09/21/2024 1 36 - 145 HHCCT GFR/BSA.pred SerPlBld QOA-MQW-RrPHbb >90.0 Normal 09/21/2024 59 - HHCCT BUN/Creat SerPl 6.0 Ratio Below low normal 09/21/2024 10 - 2 5 HHCCT Creat SerPl-mCnc 0.5 mg/dL Normal 09/21/2024 0.4 - 1.1 HH CCT Glucose SerPl-mCnc 92.0 mg/dL Normal 09/21/2024 65 - 99 HHCCT Anion Gap Bld-sCnc 9.0 Normal 09/21/2024 7 - 17 HHCCT Potassium SerPl-sCnc 4.1 mmol/L Normal 09/21/2024 3.4 - 5 .3 HHCCT Calcium SerPl-mCnc 9.3 mg/dL Normal 09/21/2024 8.7 - 10.5 HHCCT Chloride SerPl-sCnc 99.0 mmol/L Normal 09/21/2024 98 - 10 7 HHCCT BUN SerPl-mCnc 3.0 mg/dL Below low normal 09/21/2024 8 - 21 HHCCT CO2 SerPl-sCnc 27.0 mmol/L Normal 09/21/2024 22 - 33 HH CCT Magnesium SerPl-mCnc 1.6 mg/dL Normal 09/21/2024 1.6 - 2. 7 HHCCT Phosphate SerPl-mCnc 4.5 mg/dL Normal 09/21/2024 2.7 - 4. 5 HHCCT MCV RBC Auto 86.0 fL Normal 09/21/2024 80 - 100 HHCCT WBC num Bld Auto 5.9 Thou/uL Normal 09/21/2024 4 - 11 HHCCT RBC num Bld Auto 3.68 Mil/uL Below low normal 09/21/2024 4 - 5.4 HHCCT Hct VFr Bld Auto 31.8 % Below low normal 09/21/2024 35 - 47 HHCCT RDW RBC Auto-Rto 14.4 % Normal 09/21/2024 11.5 - 14.5 HHCCT Platelet num Bld Auto 214.0 Thou/uL Normal 09/21/2024 150 - 450 HHCCT PMV Bld Auto 9.4 fL Normal 09/21/2024 7.5 - 12.5 HHCCT Hgb Bld-mCnc 10.3 g/dL Below low normal 09/21/2024 11.7 - 15 .7 HHCCT MCHC RBC Auto-mCnc 32.4 g/dL Normal 09/21/2024 30 - 36 HHCCT MCH RBC Qn Auto 28.0 pg Normal 09/21/2024 26 - [address] CK SerPl-cCnc 4731.0 U/L Critically high 09/21/2024 24 - 173 HHCCT Sodium SerPl-sCnc 131.0 mmol/L Below low normal 09/21/2024 1 36 - 145 HHCCT CK SerPl-cCnc 5457.0 U/L Critically high 09/21/2024 24 - 173 HHCCT Sodium SerPl-sCnc 126.0 mmol/L Below low normal 09/20/2024 1 36 - 145 HHCCT CK SerPl-cCnc 5216.0 U/L Critically high 09/20/2024 24 - 173 HHCCT Sodium SerPl-sCnc 132.0 mmol/L Below low normal 09/20/2024 1 36 - 145 HHCCT POC Glucose 85.0 mg/dL Normal 09/20/2024 65 - 99 HHCCT POC Glucose 87.0 mg/dL Normal 09/20/2024 65 - 99 HHCCT CK SerPl-cCnc 6008.0 U/L Critically high 09/20/2024 24 - 173 HHCCT Magnesium SerPl-mCnc 1.7 mg/dL Normal 09/20/2024 1.6 - 2. 7 HHCCT Phosphate SerPl-mCnc 4.4 mg/dL Normal 09/20/2024 2.7 - 4. 5 HHCCT Anion Gap Bld-sCnc 9.0 Normal 09/20/2024 7 - 17 HHCCT Calcium SerPl-mCnc 9.0 mg/dL Normal 09/20/2024 8.7 - 10.5 HHCCT CO2 SerPl-sCnc 24.0 mmol/L Normal 09/20/2024 22 - 33 HH CCT Creat SerPl-mCnc 0.4 mg/dL Normal 09/20/2024 0.4 - 1.1 HH CCT Chloride SerPl-sCnc 101.0 mmol/L Normal 09/20/2024 98 - 1 07 HHCCT Glucose SerPl-mCnc 95.0 mg/dL Normal 09/20/2024 65 - 99 HHCCT BUN SerPl-mCnc 4.0 mg/dL Below low normal 09/20/2024 8 - 21 HHCCT Sodium SerPl-sCnc 134.0 mmol/L Below low normal 09/20/2024 1 36 - 145 HHCCT GFR/BSA.pred SerPlBld UPP-VXV-AvUAxr >90.0 Normal 09/20/2024 59 - HHCCT Potassium SerPl-sCnc 4.3 mmol/L Normal 09/20/2024 3.4 - 5 .3 HHCCT BUN/Creat SerPl 10.0 Ratio Normal 09/20/2024 10 - 25 HH CCT MCV RBC Auto 86.0 fL Normal 09/20/2024 80 - 100 HHCCT RBC num Bld Auto 3.36 Mil/uL Below low normal 09/20/2024 4 - 5.4 HHCCT Hgb Bld-mCnc 9.6 g/dL Below low normal 09/20/2024 11.7 - 15 .7 HHCCT Platelet num Bld Auto 115.0 Thou/uL Below low normal 09/20/2024 150 - 450 HHCCT WBC num Bld Auto 6.7 Thou/uL Normal 09/20/2024 4 - 11 HHCCT MCH RBC Qn Auto 28.6 pg Normal 09/20/2024 26 - [address] MCHC RBC Auto-mCnc 33.3 g/dL Normal 09/20/2024 30 - 36 HHCCT RDW RBC Auto-Rto 13.4 % Normal 09/20/2024 11.5 - 14.5 HHCCT PMV Bld Auto 9.7 fL Normal 09/20/2024 7.5 - 12.5 HHCCT Hct VFr Bld Auto 28.8 % Below low normal 09/20/2024 35 - 47 HHCCT POC Glucose 95.0 mg/dL Normal 09/20/2024 65 - 99 HHCCT Sodium SerPl-sCnc 127.0 mmol/L Below low normal 09/20/2024 1 36 - 145 HHCCT POC Glucose 99.0 mg/dL Normal 09/20/2024 65 - 99 HHCCT Sodium SerPl-sCnc 129.0 mmol/L Below low normal 09/19/2024 1 36 - 145 HHCCT POC Glucose 87.0 mg/dL Normal 09/19/2024 65 - 99 HHCCT Magnesium SerPl-mCnc 2.0 mg/dL Normal 09/19/2024 1.6 - 2. 7 HHCCT BUN SerPl-mCnc 4.0 mg/dL Below low normal 09/19/2024 8 - 21 HHCCT BUN/Creat SerPl 10.0 Ratio Normal 09/19/2024 10 - 25 HH CCT Glucose SerPl-mCnc 100.0 mg/dL Above high normal 09/19/2024 65 - 99 HHCCT CO2 SerPl-sCnc 21.0 mmol/L Below low normal 09/19/2024 22 - 33 HHCCT Creat SerPl-mCnc 0.4 mg/dL Normal 09/19/2024 0.4 - 1.1 HH CCT Potassium SerPl-sCnc 3.2 mmol/L Below low normal 09/19/2024 3.4 - 5.3 HHCCT Calcium SerPl-mCnc 8.4 mg/dL Below low normal 09/19/2024 8.7 - 10.5 HHCCT Chloride SerPl-sCnc 93.0 mmol/L Below low normal 09/19/2024 98 - 107 HHCCT Anion Gap Bld-sCnc 14.0 Normal 09/19/2024 7 - 17 HHCCT GFR/BSA.pred SerPlBld XJN-YFP-BzPSnq >90.0 Normal 09/19/2024 59 - HHCCT Sodium SerPl-sCnc 128.0 mmol/L Below low normal 09/19/2024 1 36 - 145 HHCCT Phosphate SerPl-mCnc 2.5 mg/dL Below low normal 09/19/2024 2 .7 - 4.5 HHCCT POC Glucose 80.0 mg/dL Normal 09/19/2024 65 - 99 HHCCT Heparin PF4 Antibody Negative Normal 09/20/2024 - HHCCT CK SerPl-cCnc 8000.0 U/L Critically high 09/19/2024 24 - 173 HHCCT Sodium SerPl-sCnc 129.0 mmol/L Below low normal 09/19/2024 1 36 - 145 HHCCT CK SerPl-cCnc Specimen hemolyzed. Test not performed. Normal 09/19/2024 24 - 173 HHCCT Sodium SerPl-sCnc 128.0 mmol/L Below low normal 09/19/2024 1 36 - 145 HHCCT POC Glucose 77.0 mg/dL Normal 09/19/2024 65 - 99 HHCCT Sodium SerPl-sCnc 129.0 mmol/L Below low normal 09/19/2024 1 36 - 145 HHCCT POC Glucose 89.0 mg/dL Normal 09/19/2024 65 - 99 HHCCT CK SerPl-cCnc 9700.0 U/L Critically high 09/19/2024 24 - 173 HHCCT Phosphate SerPl-mCnc 2.1 mg/dL Below low normal 09/19/2024 2 .7 - 4.5 HHCCT Magnesium SerPl-mCnc 1.5 mg/dL Below low normal 09/19/2024 1 .6 - 2.7 HHCCT GFR/BSA.pred SerPlBld UCH-[id number]-[id number] >90.0 Normal 09/19/2024 59 - HHCCT Chloride SerPl-sCnc 90.0 mmol/L Below low normal 09/19/2024 98 - 107 HHCCT Anion Gap Bld-sCnc 14.0 Normal 09/19/2024 7 - 17 HHCCT Creat SerPl-mCnc 0.4 mg/dL Normal 09/19/2024 0.4 - 1.1 HH CCT CO2 SerPl-sCnc 22.0 mmol/L Normal 09/19/2024 22 - 33 HH CCT Glucose SerPl-mCnc 87.0 mg/dL Normal 09/19/2024 65 - 99 HHCCT Potassium SerPl-sCnc 3.4 mmol/L Normal 09/19/2024 3.4 - 5 .3 HHCCT Calcium SerPl-mCnc 8.5 mg/dL Below low normal 09/19/2024 8.7 - 10.5 HHCCT Sodium SerPl-sCnc 126.0 mmol/L Below low normal 09/19/2024 1 36 - 145 HHCCT BUN/Creat SerPl 13.0 Ratio Normal 09/19/2024 10 - 25 HH CCT BUN SerPl-mCnc 5.0 mg/dL Below low normal 09/19/2024 8 - 21 HHCCT MCH RBC Qn Auto 28.0 pg Normal 09/19/2024 26 - [address] Hct VFr Bld Auto 27.9 % Below low normal 09/19/2024 35 - 47 HHCCT Immature Platelet Fraction 7.0 % Normal 09/19/2024 1.2 - 8.6 HHCCT RBC num Bld Auto 3.29 Mil/uL Below low normal 09/19/2024 4 - 5.4 HHCCT WBC num Bld Auto 14.8 Thou/uL Above high normal 09/19/2024 4 - 11 HHCCT Hgb Bld-mCnc 9.2 g/dL Below low normal 09/19/2024 11.7 - 15 .7 HHCCT RDW RBC Auto-Rto 13.0 % Normal 09/19/2024 11.5 - 14.5 HHCCT MCHC RBC Auto-mCnc 33.0 g/dL Normal 09/19/2024 30 - 36 HHCCT PMV Bld Auto 11.0 fL Normal 09/19/2024 7.5 - 12.5 HHCCT Platelet num Bld Auto 87.0 Thou/uL Below low normal 09/19/2024 150 - 450 HHCCT MCV RBC Auto 85.0 fL Normal 09/19/2024 80 - 100 HHCCT POC Glucose 91.0 mg/dL Normal 09/19/2024 65 - 99 HHCCT Sodium SerPl-sCnc 127.0 mmol/L Below low normal 09/19/2024 1 36 - 145 HHCCT POC Glucose 89.0 mg/dL Normal 09/19/2024 65 - 99 HHCCT Sodium SerPl-sCnc 127.0 mmol/L Below low normal 09/18/2024 1 36 - 145 HHCCT CK SerPl-cCnc 3721.0 U/L Critically high 09/18/2024 24 - 173 HHCCT POC Glucose 87.0 mg/dL Normal 09/18/2024 65 - 99 HHCCT POC Glucose 97.0 mg/dL Normal 09/18/2024 65 - 99 HHCCT Magnesium SerPl-mCnc 1.8 mg/dL Normal 09/18/2024 1.6 - 2. 7 HHCCT Phosphate SerPl-mCnc 1.9 mg/dL Below low normal 09/18/2024 2 .7 - 4.5 HHCCT CK SerPl-cCnc 1902.0 U/L Critically high 09/18/2024 24 - 173 HHCCT Anion Gap Bld-sCnc 11.0 Normal 09/18/2024 7 - 17 HHCCT CO2 SerPl-sCnc 24.0 mmol/L Normal 09/18/2024 22 - 33 HH CCT BUN SerPl-mCnc 6.0 mg/dL Below low normal 09/18/2024 8 - 21 HHCCT Chloride SerPl-sCnc 92.0 mmol/L Below low normal 09/18/2024 98 - 107 HHCCT BUN/Creat SerPl 15.0 Ratio Normal 09/18/2024 10 - 25 HH CCT Sodium SerPl-sCnc 127.0 mmol/L Below low normal 09/18/2024 1 36 - 145 HHCCT Potassium SerPl-sCnc 3.1 mmol/L Below low normal 09/18/2024 3.4 - 5.3 HHCCT GFR/BSA.pred SerPlBld TDV-PAB-XeQFtd >90.0 Normal 09/18/2024 59 - HHCCT Creat SerPl-mCnc 0.4 mg/dL Normal 09/18/2024 0.4 - 1.1 HH CCT Calcium SerPl-mCnc 8.2 mg/dL Below low normal 09/18/2024 8.7 - 10.5 HHCCT Glucose SerPl-mCnc 90.0 mg/dL Normal 09/18/2024 65 - 99 HHCCT POC Glucose 95.0 mg/dL Normal 09/18/2024 65 - 99 HHCCT Vancomycin SerPl-mCnc 16.0 mg/L Normal 09/18/2024 HHCCT Time of last dose Information not given Normal 09/18/2024 HHCCT Sodium SerPl-sCnc 127.0 mmol/L Below low normal 09/18/2024 1 36 - 145 HHCCT POC Glucose 109.0 mg/dL Above high normal 09/18/2024 65 - 99 HHCCT CK SerPl-cCnc 1611.0 U/L Critically high 09/18/2024 24 - 173 HHCCT Immature Platelet Fraction 9.8 % Above high normal 09/18/2024 1.2 - 8.6 HHCCT MCH RBC Qn Auto 28.1 pg Normal 09/18/2024 26 - [address] RBC num Bld Auto 3.34 Mil/uL Below low normal 09/18/2024 4 - 5.4 HHCCT MCV RBC Auto 85.0 fL Normal 09/18/2024 80 - 100 HHCCT Platelet num Bld Auto 71.0 Thou/uL Below low normal 09/18/2024 150 - 450 HHCCT WBC num Bld Auto 11.0 Thou/uL Normal 09/18/2024 4 - 11 HHCCT MCHC RBC Auto-mCnc 33.1 g/dL Normal 09/18/2024 30 - 36 HHCCT Hct VFr Bld Auto 28.4 % Below low normal 09/18/2024 35 - 47 HHCCT RDW RBC Auto-Rto 13.1 % Normal 09/18/2024 11.5 - 14.5 HHCCT Hgb Bld-mCnc 9.4 g/dL Below low normal 09/18/2024 11.7 - 15 .7 HHCCT PMV Bld Auto 11.6 fL Normal 09/18/2024 7.5 - 12.5 HHCCT Sodium SerPl-sCnc 130.0 mmol/L Below low normal 09/18/2024 1 36 - 145 HHCCT POC Glucose 134.0 mg/dL Above high normal 09/18/2024 65 - 99 HHCCT CK SerPl-cCnc 1553.0 U/L Critically high 09/18/2024 24 - 173 HHCCT BUN SerPl-mCnc 8.0 mg/dL Normal 09/18/2024 8 - 21 HHCC T Creat SerPl-mCnc 0.6 mg/dL Normal 09/18/2024 0.4 - 1.1 HH CCT Glucose SerPl-mCnc 99.0 mg/dL Normal 09/18/2024 65 - 99 HHCCT Potassium SerPl-sCnc 2.5 mmol/L Critically low 09/18/2024 3. 4 - 5.3 HHCCT Sodium SerPl-sCnc 125.0 mmol/L Below low normal 09/18/2024 1 36 - 145 HHCCT Chloride SerPl-sCnc 88.0 mmol/L Below low normal 09/18/2024 98 - 107 HHCCT CO2 SerPl-sCnc 28.0 mmol/L Normal 09/18/2024 22 - 33 HH CCT Anion Gap Bld-sCnc 9.0 Normal 09/18/2024 7 - 17 HHCCT GFR/BSA.pred SerPlBld IDX-RXH-PsCHmq >90.0 Normal 09/18/2024 59 - HHCCT BUN/Creat SerPl 13.0 Ratio Normal 09/18/2024 10 - 25 HH CCT Calcium SerPl-mCnc 8.4 mg/dL Below low normal 09/18/2024 8.7 - 10.5 HHCCT Phosphate SerPl-mCnc 2.4 mg/dL Below low normal 09/18/2024 2 .7 - 4.5 HHCCT AST SerPl-cCnc 49.0 U/L Normal 09/18/2024 10 - 50 HHCC T Globulin Ser Calc-mCnc 3.2 g/dL Normal 09/18/2024 1.5 - 3.9 HHCCT ALP SerPl-cCnc 111.0 U/L Normal 09/18/2024 32 - 122 HHCC T ALT SerPl-cCnc 18.0 U/L Normal 09/18/2024 10 - 50 HHCC T Albumin SerPl-mCnc 3.2 g/dL Below low normal 09/18/2024 3.5 - 5 HHCCT Albumin/Glob SerPl 1.0 Ratio Normal 09/18/2024 1 - 3 HHCCT Bilirub SerPl-mCnc 0.5 mg/dL Normal 09/18/2024 0.2 - 1 HHCCT Prot SerPl-mCnc 6.4 g/dL Normal 09/18/2024 6.3 - 8.[address] Bilirub Direct SerPl-mCnc <0.2 mg/dL Normal 09/18/2024 0 - 0.2 HHCCT Magnesium SerPl-mCnc 1.9 mg/dL Normal 09/18/2024 1.6 - 2. 7 HHCCT PMV Bld Auto 11.0 fL Normal 09/18/2024 7.5 - 12.5 HHCCT Basophils/leuk NFr Bld Auto 0.1 % Normal 09/18/2024 HHCCT Hgb Bld-mCnc 9.9 g/dL Below low normal 09/18/2024 11.7 - 15 .7 HHCCT Platelet num Bld Auto 69.0 Thou/uL Below low normal 09/18/2024 150 - 450 HHCCT Neutrophils num Bld Auto 8.79 Thou/uL Above high normal 09/18/2024 2 - 7.5 HHCCT Lymphocytes/leuk NFr Bld Auto 15.4 % Normal 09/18/2024 HHCCT Immature Platelet Fraction 8.9 % Above high normal 09/18/2024 1.2 - 8.6 HHCCT RBC num Bld Auto 3.52 Mil/uL Below low normal 09/18/2024 4 - 5.4 HHCCT Neutrophils/leuk NFr Bld Auto 78.0 % Normal 09/18/2024 HHCCT WBC num Bld Auto 11.3 Thou/uL Above high normal 09/18/2024 4 - 11 HHCCT MCV RBC Auto 85.0 fL Normal 09/18/2024 80 - 100 HHCCT Monocytes num Bld Auto 0.67 Thou/uL Normal 09/18/2024 0.2 - 1.5 HHCCT Imm Granulocytes/leuk NFr Bld Auto 0.5 % Normal 09/18/2024 HHCCT Lymphocytes num Bld Auto 1.74 Thou/uL Normal 09/18/2024 1.5 - 4.5 HHCCT nRBC num Bld Auto 0.02 Thou/uL Normal 09/18/2024 0 - 0.02 HHCCT Imm Granulocytes num Bld Auto 0.06 Thou/uL Normal 09/18/2024 0 - 0.1 HHCCT Eosinophil num Bld Auto 0.01 Thou/uL Normal 09/18/2024 0 - 0.7 HHCCT Hct VFr Bld Auto 29.8 % Below low normal 09/18/2024 35 - 47 HHCCT MCH RBC Qn Auto 28.1 pg Normal 09/18/2024 26 - [address] MCHC RBC Auto-mCnc 33.2 g/dL Normal 09/18/2024 30 - 36 HHCCT Basophils num Bld Auto 0.01 Thou/uL Normal 09/18/2024 0 - 0.2 HHCCT RDW RBC Auto-Rto 13.2 % Normal 09/18/2024 11.5 - 14.5 HHCCT nRBC/100 WBC Bld Auto-Rto 0.2 /100 WBC Above high normal 09/18/2024 0 - 0.1 HHCCT Eosinophil/leuk NFr Bld Auto 0.1 % Normal 09/18/2024 HHCCT Monocytes/leuk NFr Bld Auto 5.9 % Normal 09/18/2024 HHCCT MetHgb MFr Bld 0.5 % Normal 09/18/2024 0.4 - 1.5 HHCC T COHgb MFr Bld 1.7 % Normal 09/18/2024 0 - 2 HHCCT pCO2, Arterial 39.0 mmHG Normal 09/18/2024 32 - 45 HHCC T Total CO2, Arterial 30.0 mmol/L Above high normal 09/18/2024 22 - 28 HHCCT pH, Arterial 7.49 Above high normal 09/18/2024 7.35 - 7 .45 HHCCT P/F Ratio 403.0 Normal 09/18/2024 HHCCT Base excess BldA Calc-sCnc 5.5 mmol/L Normal 09/18/[address] VFr BldA Calc 14.3 mL/dL Below low normal 09/18/2024 1 5.7 - 21.6 HHCCT SaO2 % BldA 99.9 % Above high normal 09/18/2024 94 - 97 HHCCT Hgb Bld-mCnc 10.2 g/dL Below low normal 09/18/2024 11.7 - 15 .7 HHCCT pO2, Arterial 161.0 mmHG Above high normal 09/18/2024 75 - 9 5 HHCCT Respiratory Information VENT 40% Normal 09/18/2024 HHCCT POC Glucose 113.0 mg/dL Above high normal 09/18/2024 65 - 99 HHCCT T. pallidum IgG+IgM Ser QI IA Nonreactive Normal 09/18/2024 - HHCCT Sodium SerPl-sCnc 123.0 mmol/L Critically low 09/18/2024 136 - 145 HHCCT POC Glucose 118.0 mg/dL Above high normal 09/18/2024 65 - 99 HHCCT Sodium SerPl-sCnc 128.0 mmol/L Below low normal 09/17/2024 1 36 - 145 HHCCT Total CO2, Arterial 32.0 mmol/L Above high normal 09/17/2024 22 - 28 HHCCT SaO2 % BldA 99.9 % Above high normal 09/17/2024 94 - 97 HHCCT pO2, Arterial 226.0 mmHG Above high normal 09/17/2024 75 - 9 5 HHCCT COHgb MFr Bld 0.9 % Normal 09/17/2024 0 - 2 HHCCT Hgb Bld-mCnc 11.0 g/dL Below low normal 09/17/2024 11.7 - 15 .7 HHCCT P/F Ratio 565.0 Normal 09/17/[address] VFr BldA Calc 15.8 mL/dL Normal 09/17/2024 15.7 - 2 1.6 HHCCT Base excess BldA Calc-sCnc 7.1 mmol/L Normal 09/17/2024 HHCCT MetHgb MFr Bld 0.5 % Normal 09/17/2024 0.4 - 1.5 HHCC T pCO2, Arterial 41.0 mmHG Normal 09/17/2024 32 - 45 HHCC T pH, Arterial 7.49 Above high normal 09/17/2024 7.35 - 7 .45 HHCCT Respiratory Information VENT 40% Normal 09/17/2024 HHCCT POC Glucose 113.0 mg/dL Above high normal 09/18/2024 65 - 99 HHCCT HIV 1+2 Ab+HIV1 p24 Ag Ser EIA-aCnc Nonreactive Normal 09/18/2024 - HHCCT Phosphate SerPl-mCnc 1.9 mg/dL Below low normal 09/17/2024 2 .7 - 4.5 HHCCT Calcium SerPl-mCnc 8.4 mg/dL Below low normal 09/17/2024 8.7 - 10.5 HHCCT Glucose SerPl-mCnc 97.0 mg/dL Normal 09/17/2024 65 - 99 HHCCT BUN SerPl-mCnc 10.0 mg/dL Normal 09/17/2024 8 - [address] Anion Gap Bld-sCnc 15.0 Normal 09/17/2024 7 - 17 HHCCT GFR/BSA.pred SerPlBld HJU-EQH-YpTRru >90.0 Normal 09/17/2024 59 - HHCCT Chloride SerPl-sCnc 86.0 mmol/L Below low normal 09/17/2024 98 - 107 HHCCT Sodium SerPl-sCnc 129.0 mmol/L Below low normal 09/17/2024 1 36 - 145 HHCCT Creat SerPl-mCnc 0.6 mg/dL Normal 09/17/2024 0.4 - 1.1 HH CCT CO2 SerPl-sCnc 28.0 mmol/L Normal 09/17/2024 22 - 33 HH CCT Potassium SerPl-sCnc 3.0 mmol/L Below low normal 09/17/2024 3.4 - 5.3 HHCCT BUN/Creat SerPl 17.0 Ratio Normal 09/17/2024 10 - 25 HH CCT ALP SerPl-cCnc 117.0 U/L Normal 09/17/2024 32 - 122 HHCC T AST SerPl-cCnc 41.0 U/L Normal 09/17/2024 10 - 50 HHCC T Bilirub SerPl-mCnc 0.6 mg/dL Normal 09/17/2024 0.2 - 1 HHCCT Globulin Ser Calc-mCnc 3.3 g/dL Normal 09/17/2024 1.5 - 3.9 HHCCT Bilirub Direct SerPl-mCnc 0.2 mg/dL Normal 09/17/2024 0 - 0.2 HHCCT ALT SerPl-cCnc 17.0 U/L Normal 09/17/2024 10 - 50 HHCC T Albumin/Glob SerPl 1.0 Ratio Normal 09/17/2024 1 - 3 HHCCT Prot SerPl-mCnc 6.6 g/dL Normal 09/17/2024 6.3 - 8.[address] Albumin SerPl-mCnc 3.3 g/dL Below low normal 09/17/2024 3.5 - 5 HHCCT CK SerPl-cCnc 830.0 U/L Critically high 09/17/2024 24 - 173 HHCCT Magnesium SerPl-mCnc 2.3 mg/dL Normal 09/17/2024 1.6 - 2. 7 HHCCT pO2, Arterial 224.0 mmHG Above high normal 09/17/2024 75 - 9 5 HHCCT pH, Arterial 7.57 Above high normal 09/17/2024 7.35 - 7 .45 HHCCT COHgb MFr Bld 1.1 % Normal 09/17/2024 0 - 2 HHCCT MetHgb MFr Bld 0.4 % Normal 09/17/2024 0.4 - 1.5 HHCC T Base excess BldA Calc-sCnc 6.8 mmol/L Normal 09/17/2024 HHCCT Total CO2, Arterial 30.0 mmol/L Above high normal 09/17/2024 22 - [address] VFr BldA Calc 15.4 mL/dL Below low normal 09/17/2024 1 5.7 - 21.6 HHCCT pCO2, Arterial 32.0 mmHG Normal 09/17/2024 32 - 45 HHCC T SaO2 % BldA >100.0 % Above high normal 09/17/2024 94 - 97 HHCCT P/F Ratio 560.0 Normal 09/17/2024 HHCCT Hgb Bld-mCnc 10.8 g/dL Below low normal 09/17/2024 11.7 - 15 .7 HHCCT Respiratory Information VENT 40% Normal 09/17/2024 HHCCT POC Glucose 104.0 mg/dL Above high normal 09/17/2024 65 - 99 HHCCT Sodium SerPl-sCnc 125.0 mmol/L Below low normal 09/17/2024 1 36 - 145 HHCCT C trach rRNA XXX Ql RACHAEL+probe Negative Normal 09/18/2024 - HHCCT N gonorrhoea rRNA XXX Donr Ql PCR Negative Normal 09/18/2024 - HHCCT Prot SerPl-mCnc 6.4 g/dL Normal 09/17/2024 6.3 - 8.[address] Bilirub SerPl-mCnc 0.4 mg/dL Normal 09/17/2024 0.2 - 1 HHCCT Globulin Ser Calc-mCnc 3.1 g/dL Normal 09/17/2024 1.5 - 3.9 HHCCT Albumin/Glob SerPl 1.1 Ratio Normal 09/17/2024 1 - 3 HHCCT Bilirub Direct SerPl-mCnc Specimen hemolyzed. Test not performed. Normal 09/17/2024 0 - 0.2 HHCCT ALP SerPl-cCnc 112.0 U/L Normal 09/17/2024 32 - 122 HHCC T Albumin SerPl-mCnc 3.3 g/dL Below low normal 09/17/2024 3.5 - 5 HHCCT AST SerPl-cCnc Specimen hemolyzed. Test not performed. Normal 09/17/2024 10 - 50 HHCCT ALT SerPl-cCnc 19.0 U/L Normal 09/17/2024 10 - 50 HHCC T Delta 12.0 Above high normal 09/17/2024 - 3 H HCCT Troponin T SerPl-mCnc 238.0 ng/L Critically high 09/17/2024 - 15 HHCCT Magnesium SerPl-mCnc 2.5 mg/dL Normal 09/17/2024 1.6 - 2. 7 HHCCT CK SerPl-cCnc Specimen hemolyzed. Test not performed. Normal 09/17/2024 24 - 173 HHCCT Phosphate SerPl-mCnc 4.4 mg/dL Normal 09/17/2024 2.7 - 4. 5 HHCCT Glucose SerPl-mCnc 112.0 mg/dL Above high normal 09/17/2024 65 - 99 HHCCT BUN/Creat SerPl 20.0 Ratio Normal 09/17/2024 10 - 25 HH CCT BUN SerPl-mCnc 12.0 mg/dL Normal 09/17/2024 8 - [address] Potassium SerPl-sCnc 3.8 mmol/L Normal 09/17/2024 3.4 - 5 .3 HHCCT Chloride SerPl-sCnc 82.0 mmol/L Below low normal 09/17/2024 98 - 107 HHCCT Creat SerPl-mCnc 0.6 mg/dL Normal 09/17/2024 0.4 - 1.1 HH CCT Sodium SerPl-sCnc 125.0 mmol/L Below low normal 09/17/2024 1 36 - 145 HHCCT Anion Gap Bld-sCnc 14.0 Normal 09/17/2024 7 - 17 HHCCT Calcium SerPl-mCnc 7.8 mg/dL Below low normal 09/17/2024 8.7 - 10.5 HHCCT GFR/BSA.pred SerPlBld BHH-HEA-[id number] >90.0 Normal 09/17/2024 59 - HHCCT CO2 SerPl-sCnc 29.0 mmol/L Normal 09/17/2024 22 - 33 HH CCT Lactate SerPl-sCnc 1.5 mmol/L Normal 09/17/2024 0.5 - 1.9 HHCCT Base excess BldA Calc-sCnc 9.5 mmol/L Normal 09/17/2024 HHCCT Total CO2, Arterial 35.0 mmol/L Above high normal 09/17/2024 22 - 28 HHCCT pCO2, Arterial 43.0 mmHG Normal 09/17/2024 32 - 45 HHCC T Hgb Bld-mCnc 11.0 g/dL Below low normal 09/17/2024 11.7 - 15 .7 HHCCT pO2, Arterial 242.0 mmHG Above high normal 09/17/2024 75 - [address] VFr BldA Calc 15.7 mL/dL Normal 09/17/2024 15.7 - 2 1.6 HHCCT COHgb MFr Bld 1.4 % Normal 09/17/2024 0 - 2 HHCCT SaO2 % BldA >100.0 % Above high normal 09/17/2024 94 - 97 HHCCT P/F Ratio 605.0 Normal 09/17/2024 HHCCT pH, Arterial 7.51 Above high normal 09/17/2024 7.35 - 7 .45 HHCCT MetHgb MFr Bld 0.6 % Normal 09/17/2024 0.4 - 1.5 HHCC T Respiratory Information VENT 40% Normal 09/17/2024 HHCCT POC Glucose 114.0 mg/dL Above high normal 09/17/2024 65 - 99 HHCCT Potassium SerPl-sCnc 2.8 mmol/L Below low normal 09/17/2024 3.4 - 5.3 HHCCT Delta 29.0 Above high normal 09/17/2024 - 3 H HCCT Troponin T SerPl-mCnc 279.0 ng/L Critically high 09/17/2024 - 15 HHCCT pCO2 BldV 41.0 mmHG Normal 09/17/2024 35 - 50 HHCCT pH BldV 7.53 Above high normal 09/17/2024 7.33 - 7.43 HHCCT Base excess BldA Calc-sCnc 10.3 mmol/L Normal 09/17/2024 HHCCT SaO2 % BldV from pO2 98.4 % Normal 09/17/[address] VFr BldV Calc 15.0 mL/dL Normal 09/17/2024 7.2 - 17 .2 HHCCT Hgb Bld-mCnc 11.1 g/dL Below low normal 09/17/2024 11.7 - 15 .7 HHCCT pO2 BldV 100.0 mmHG Above high normal 09/17/2024 0 - 60 HHCCT MetHgb MFr Bld 0.4 % Normal 09/17/2024 0.4 - 1.5 HHCC T CO2 BldV-sCnc 35.0 mmol/L Above high normal 09/17/2024 23 - 29 HHCCT COHgb MFr Bld 2.3 % Above high normal 09/17/2024 0 - 2 HHCCT Respiratory Information VENT 40% Normal 09/17/2024 HHCCT Sodium SerPl-sCnc 125.0 mmol/L Below low normal 09/17/2024 1 36 - 145 HHCCT POC Glucose 103.0 mg/dL Above high normal 09/17/2024 65 - 99 HHCCT Result Not Detected Normal 09/17/2024 - HHCCT CO2 BldV-sCnc 37.0 mmol/L Above high normal 09/17/2024 23 - 29 HHCCT SaO2 % BldV from pO2 93.3 % Normal 09/17/2024 HHCCT pH BldV 7.61 Critically high 09/17/2024 7.33 - 7.43 H HCCT Hgb Bld-mCnc 11.2 g/dL Below low normal 09/17/2024 11.7 - 15 .7 HHCCT pCO2 BldV 35.0 mmHG Normal 09/17/2024 35 - 50 HHCCT COHgb MFr Bld 2.1 % Above high normal 09/17/2024 0 - 2 HHCCT Base excess BldA Calc-sCnc 13.2 mmol/L Normal 09/17/2024 HHCCT pO2 BldV 61.0 mmHG Above high normal 09/17/2024 0 - [address] VFr BldV Calc 14.3 mL/dL Normal 09/17/2024 7.2 - 17 .2 HHCCT MetHgb MFr Bld 0.5 % Normal 09/17/2024 0.4 - 1.5 HHCC T Respiratory Information VENT 40% Normal 09/17/2024 HHCCT POC Glucose 125.0 mg/dL Above high normal 09/17/2024 65 - 99 HHCCT Phosphate SerPl-mCnc 1.2 mg/dL Below low normal 09/17/2024 2 .7 - 4.5 HHCCT Cortis SerPl-mCnc 27.1 ug/dL Normal 09/17/2024 HHCCT TSH SerPl DL<=0.005 mIU/L-aCnc 1.69 mIU/L Normal 09/17/2024 0.27 - 4.2 HHCCT CK SerPl-cCnc 613.0 U/L Critically high 09/17/2024 24 - 173 HHCCT Urate SerPl-mCnc 6.0 mg/dL Normal 09/17/2024 2.5 - 7 HH CCT GFR/BSA.pred SerPlBld OGI-STG-HjVAgs >90.0 Normal 09/17/2024 59 - HHCCT Anion Gap Bld-sCnc 15.0 Normal 09/17/2024 7 - 17 HHCCT Chloride SerPl-sCnc 74.0 mmol/L Below low normal 09/17/2024 98 - 107 HHCCT BUN SerPl-mCnc 16.0 mg/dL Normal 09/17/2024 8 - [address] Potassium SerPl-sCnc 1.8 mmol/L Critically low 09/17/2024 3. 4 - 5.3 HHCCT Glucose SerPl-mCnc 112.0 mg/dL Above high normal 09/17/2024 65 - 99 HHCCT Sodium SerPl-sCnc 121.0 mmol/L Critically low 09/17/2024 136 - 145 HHCCT CO2 SerPl-sCnc 32.0 mmol/L Normal 09/17/2024 22 - 33 HH CCT Calcium SerPl-mCnc 7.6 mg/dL Below low normal 09/17/2024 8.7 - 10.5 HHCCT BUN/Creat SerPl 20.0 Ratio Normal 09/17/2024 10 - 25 HH CCT Creat SerPl-mCnc 0.8 mg/dL Normal 09/17/2024 0.4 - 1.1 HH CCT Troponin T SerPl-mCnc 250.0 ng/L Critically high 09/17/2024 - 15 HHCCT Delta NO PREVIOUS RESULT Normal 09/17/2024 - 3 HHCCT Procalcitonin SerPl EIA-mCnc 0.38 ng/mL Above high normal 09/17/2024 - 0.09 HHCCT Lactate SerPl-sCnc 3.2 mmol/L Critically high 09/17/2024 0.5 - 1.9 HHCCT Osmolality Ur 270.0 mOsm/Kg Normal 09/17/2024 40 - 1400 H HCCT Osmolality SerPl 258.0 mOsm/Kg Below low normal 09/17/2024 2 85 - 295 HHCCT Sodium Ur-sCnc 35.0 mmol/L Normal 09/17/2024 HH CCT Chloride Ur-sCnc 22.0 mmol/L Normal 09/17/2024 HHCCT Potassium Ur-sCnc 59.0 mmol/L Normal 09/17/2024 HHCCT Base excess BldA Calc-sCnc 14.3 mmol/L Normal 09/17/2024 HHCCT pCO2 BldV 31.0 mmHG Below low normal 09/17/2024 35 - 50 HH CCT CO2 BldV-sCnc 38.0 mmol/L Above high normal 09/17/2024 23 - 29 HHCCT pO2 BldV 131.0 mmHG Above high normal 09/17/2024 0 - 60 HHCCT pH BldV 7.67 Critically high 09/17/2024 7.33 - 7.43 H HCCT Respiratory Information VENT 40% Normal 09/17/2024 HHCCT WBC num/area UrnS HPF 4.0 per hpf Normal 09/17/2024 0 - 4 [facility] RBC num/area UrnS HPF 12.0 per hpf Above high normal 09/17/2024 0 - 4 [facility] Prot Ur Strip-mCnc Moderate (100 mg/dL) Abnormal 09/17/2024 - CCT Color Ur Yellow Normal 09/17/2024 H[facility]CT Sp Gr Ur Strip 1.019 Normal 09/17/2024 1.003 - 1.03 H[facility]CT pH Ur Strip 8.0 Normal 09/17/2024 5 - 8 [facility]CT Nitrite Ur Ql Strip Negative Normal 09/17/2024 - CCT Leukocyte esterase Ur Ql Strip Trace Abnormal 09/17/2024 - CCT Glucose Ur Strip-mCnc 0.0 mg/dL Normal 09/17/2024 0 - 99 [facility]CT Ketones Ur Strip-mCnc Negative Normal 09/17/2024 - CCT Hgb Ur Ql Strip Small Abnormal 09/17/2024 - [facility] CT Bilirub Ur Strip-mCnc Negative Normal 09/17/2024 - CCT Clarity Ur Slightly cloudy Normal 09/17/2024 HH CCT POC Glucose 143.0 mg/dL Above high normal 09/16/2024 65 - 99 H[facility]CT Sodium SerPl-sCnc 117.0 mmol/L Critically low 09/17/2024 136 - 145 H[facility]CT Creat SerPl-mCnc 0.7 mg/dL Normal 09/17/2024 0.4 - 1.1 HH CCT BUN/Creat SerPl 27.0 Ratio Above high normal 09/17/2024 10 - 25 [facility]CT Glucose SerPl-mCnc 158.0 mg/dL Above high normal 09/17/2024 65 - 99 H[facility]CT Anion Gap Bld-sCnc 16.0 Normal 09/17/2024 7 - 17 HHCCT CO2 SerPl-sCnc 34.0 mmol/L Above high normal 09/17/2024 22 - 33 H[facility]CT Calcium SerPl-mCnc 7.9 mg/dL Below low normal 09/17/2024 8.7 - 10.5 HHCCT Potassium SerPl-sCnc 3.4 mmol/L Normal 09/17/2024 3.4 - 5 .3 H[facility]CT Chloride SerPl-sCnc 67.0 mmol/L Below low normal 09/17/2024 98 - 107 H[facility]CT GFR/BSA.pred SerPlBld [id number] >90.0 Normal 09/17/2024 59 - HHCCT BUN SerPl-mCnc 19.0 mg/dL Normal 09/17/2024 8 - [address] Salicylates SerPl-mCnc <1.0 mg/dL Below low normal 09/17/2024 15 - 30 H[facility]CT APAP SerPl-mCnc <5.0 mg/L Below low normal 09/17/2024 10 - 3 0 HHCCT AST SerPl-cCnc Specimen hemolyzed. Test not performed. Normal 09/17/2024 10 - 50 H[facility]CT Albumin SerPl-mCnc 3.9 g/dL Normal 09/17/2024 3.5 - 5 HHCCT Prot SerPl-mCnc 7.1 g/dL Normal 09/17/2024 6.3 - 8.[address] ALT SerPl-cCnc 19.0 U/L Normal 09/17/2024 10 - 50 [facility]CC T ALP SerPl-cCnc 133.0 U/L Above high normal 09/17/2024 32 - 1 22 H[facility]CT Albumin/Glob SerPl 1.2 Ratio Normal 09/17/2024 1 - 3 H[facility]CT Globulin Ser Calc-mCnc 3.2 g/dL Normal 09/17/2024 1.5 - 3.9 HHCCT Bilirub SerPl-mCnc 0.8 mg/dL Normal 09/17/2024 0.2 - 1 H[facility]CT Bilirub Direct SerPl-mCnc Specimen hemolyzed. Test not performed. Normal 09/17/2024 0 - 0.2 HHCCT Trigl SerPl-mCnc 311.0 mg/dL Above high normal 09/17/2024 - 150 H[facility]CT Magnesium SerPl-mCnc 3.0 mg/dL Above high normal 09/17/2024 1.6 - 2.7 H[facility]CT Lipase SerPl-cCnc 13.0 U/L Normal 09/17/2024 13 - 60 H HCCT CK SerPl-cCnc Specimen hemolyzed. Test not performed. Normal 09/17/2024 24 - 173 H[facility]CT B-OH-Butyr SerPl-sCnc 0.06 mmol/L Normal 09/17/2024 - 0.28 H[facility]CT Lactate SerPl-sCnc 4.5 mmol/L Critically high 09/17/2024 0.5 - 1.9 H[facility]CT Monocytes num Bld Auto 0.84 Thou/uL Normal 09/16/2024 0.2 - 1.5 H[facility]CT Basophils/leuk NFr Bld Auto 0.1 % Normal 09/16/2024 H[facility]CT nRBC/100 WBC Bld Auto-Rto 0.3 /100 WBC Above high normal 09/16/2024 0 - 0.1 H[facility]CT WBC num Bld Auto 13.1 Thou/uL Above high normal 09/16/2024 4 - 11 H[facility]CT Eosinophil num Bld Auto 0.01 Thou/uL Normal 09/16/2024 0 - 0.7 HHCCT MCH RBC Qn Auto 28.1 pg Normal 09/16/2024 26 - [address] PMV Bld Auto 11.3 fL Normal 09/16/2024 7.5 - 12.5 H[facility]CT Eosinophil/leuk NFr Bld Auto 0.1 % Normal 09/16/2024 H[facility]CT Lymphocytes num Bld Auto 1.14 Thou/uL Below low normal 09/16/2024 1.5 - 4.5 HHCCT Imm Granulocytes num Bld Auto 0.12 Thou/uL Above high normal 09/16/2024 0 - 0.1 HHCCT Imm Granulocytes/leuk NFr Bld Auto 0.9 % Normal 09/16/2024 HHCCT Neutrophils num Bld Auto 11.02 Thou/uL Above high normal 09/16/2024 2 - 7.5 HHCCT MCHC RBC Auto-mCnc 34.7 g/dL Normal 09/16/2024 30 - 36 HHCCT Hct VFr Bld Auto 34.3 % Below low normal 09/16/2024 35 - 47 HHCCT RDW RBC Auto-Rto 12.7 % Normal 09/16/2024 11.5 - 14.5 HHCCT Basophils num Bld Auto 0.01 Thou/uL Normal 09/16/2024 0 - 0.2 HHCCT Neutrophils/leuk NFr Bld Auto 83.8 % Normal 09/16/2024 H[facility]CT Monocytes/leuk NFr Bld Auto 6.4 % Normal 09/16/2024 H[facility]CT nRBC num Bld Auto 0.04 Thou/uL Above high normal 09/16/2024 0 - 0.02 HHCCT MCV RBC Auto 81.0 fL Normal 09/16/2024 80 - 100 H[facility]CT Hgb Bld-mCnc 11.9 g/dL Normal 09/16/2024 11.7 - 15.7 [facility] T RBC num Bld Auto 4.24 Mil/uL Normal 09/16/2024 4 - 5.4 H[facility]CT Platelet num Bld Auto 153.0 Thou/uL Normal 09/16/2024 150 - 450 H[facility]CT Lymphocytes/leuk NFr Bld Auto 8.7 % Normal 09/16/2024 H[facility]CT pO2 BldV 120.0 mmHG Above high normal 09/16/2024 0 - 60 HHCCT pCO2 BldV 42.0 mmHG Normal 09/16/2024 35 - 50 HHCCT pH BldV 7.58 Above high normal 09/16/2024 7.33 - 7.43 HHCCT CO2 BldV-sCnc 41.0 mmol/L Above high normal 09/16/2024 23 - 29 HHCCT Base excess BldA Calc-sCnc 15.6 mmol/L Normal 09/16/2024 [facility] Respiratory Information OTHER Normal 09/16/2024 [facility] Encounters Encounter Type Encounter Reason Primary Diagnosis Location Date Inpatient Acute respiratory failure, unspecified whether with hypoxia or hypercapnia Acute respiratory failure, unspecified whether with hypoxia or hypercapnia [facility] 09/16/2024 Care Team Organization Name Specialty Phone Email Start Date End Da dajuan [facility] 09/18/2024 01/17/2025 [facility] 09/16/2024
[2025-05-22 11:18] LABS: Reflex Lactate? Lactic Acid Added
--- NOTE | 2025-05-22 11:24 | PM.IMHP ---
History of Present Illness Date of Service: 05/22/25 Attending physician on admission: Ranjan Garg Chief Complaint: Seizures Sabine Barraza is a 34 years old woman with past medical history significant for alcohol abuse, seizures/epilepsy on Keppra, depression/anxiety was brought to the emergency department after she has been and event of seizure this morning that seems to be generalized. Prior to this event she was nauseous and vomiting. She also complained of headache, anxiety and tremulousness. She she has been drinking heavily over the last 3 weeks. She stopped taking her naloxone. It is unclear if she has been taking her home medications as prescribed. She currently denied any abdominal pain or diarrhea. She did not report any chest pain cough, palpitations or shortness on breath. She was not very specific about the quantity of alcohol intake. The last time she drank alcohol was last night. She uses cocaine occasions. Denied tobacco smoking. In the ED, she was found to have mild degree of tachycardia. The other vital signs are normal. Blood workup showed no leukocytosis. There is lactic acidosis, 2.7. Hemoglobin is 13.1 and platelets 322. There are no significant electrolyte imbalances. Renal function is normal. LFT are remarkable for mildly elevated AST. ETOH level is 280. Keppra level is pending. ECG showed sinus tachycardia, heart rate 103 BP and without ischemic changes; QT interval is not prolonged. ED tx: Valium 5 mg IV, phenobarbital initiated, Keppra 1500 mg p.o., NS 1 L bolus Review of Systems Review of Systems: All 12 systems were reviewed and normal except as noted in HPI. [facility] Medical History Alcohol use disorder, severe, dependence Hypomagnesemia Acute hyponatremia Acute urinary retention Acute hypokalemia Epileptic seizure Alcohol withdrawal Seizure Acute dehydration Acute hypokalemia Acute alcohol intoxication Acute respiratory failure Acute hypokalemia Acute hyponatremia Alcohol withdrawal Status epilepticus Withdrawal seizures Depression Alcoholism Social History Household Members: Significant Other Household Members Other:: bf, mom Housing: Apartment Do you presently have visiting nurse or other home services: No Unable to assess alcohol history related to: Unable to respond Alcohol intake: current Alcohol intake frequency: a few times a week Alcohol type: hard liquor Comment: pt refused bed alarm Patient Tobacco Use Status: Tobacco use Unknown Tobacco use type: Smokeless Tobacco Smoked in Last 30 Days: Yes e-Cigarette/Vaping Use: Currently Using Use of substances other than those prescribed or required for medical reasons: Yes Substance Use Type: Crack/Cocaine Advance Directives: No Advance Directives Information Provided: Yes Patient : No service: No Meds Allergies Allergy/AdvReac Type Severity Reaction Status Date / Time cat dander AdvReac Itching Verified 05/22/25 08:49 dog dander AdvReac Itching Verified 05/22/25 08:49 Iodinated Contrast Media AdvReac Hives Verified 03/27/25 18:23 (Contrast Dye) Active Medications: Current Medications Acetaminophen (Acetaminophen 325 Mg Tablet) 650 mg PO Q6H PRN PRN Reason: Pain, Mild 1-3,fever,headache Calcium Carbonate (Calcium Carbonate 750 Mg Tab.Chew) 750 mg PO Q4H PRN PRN Reason: Heartburn Thiamine HCl 100 mg/ Sodium (Chloride) 101 mls @ 202 mls/hr IV DAILY [facility] Magnesium Hydroxide (Milk Of Magnesia 30 Ml Oral.Susp) 30 ml PO DAILY PRN PRN Reason: Constipation Melatonin (Melatonin 3 Mg Tablet) 6 mg PO BEDTIME PRN PRN Reason: Insomnia Pharmacy Consult (Consult Rx Etoh Phenob Im/Po) 1 each MISCELLANE ONCE PRN; Protocol PRN Reason: Consult order Phenobarbital (Phenobarbital 15 Mg Tablet) 45 mg PO BID [facility] Stop: 05/24/25 09:01 Phenobarbital (Phenobarbital 15 Mg Tablet) 15 mg PO BID [facility] Stop: 05/26/25 09:01 Phenobarbital (Phenobarbital 15 Mg Tablet) 15 mg PO DAILY [facility] Stop: 05/28/25 09:01 Phenobarbital Sodium (Phenobarbital Sodium 130 Mg/Ml Vial Im Q3hx2) 151 mg IM Q3H [facility] Stop: 05/22/25 16:01 Sodium Chloride (0.9 % Sodium Chloride Flush 3 Ml Syringe) 3 ml IVFLUSH QSHIFT [facility] Home Medications ?Medication ?Instructions ?Recorded ?Confirmed ?Last Taken ?Type omeprazole 20 mg capsule,delayed 20 mg PO DAILY@0630 03/28/25 05/22/25 Unknown History release magnesium oxide 400 mg (241.3 mg 400 mg PO BID 05/22/25 05/22/25 Unknown History magnesium) tablet multivitamin-iron 9 mg-folic acid 1 tab PO DAILY 05/22/25 05/22/25 Unknown History 400 mcg-calcium and minerals tablet (Therapeutic-M) potassium chloride 10 mEq 10 meq PO DAILY 05/22/25 05/22/25 Unknown History capsule,extended release Physical Exam Vital Signs and Narrative: Vital Signs: Last Vital Signs Temp 98.3 F 05/22/25 10:06 Pulse 107 H 05/22/25 10:06 Resp 17 05/22/25 10:06 BP 113/77 05/22/25 10:06 Pulse Ox 100 05/22/25 10:06 O2 Del Method Room Air 05/22/25 10:06 BMI result Body Mass Index 18.5 Constitutional - Awake and Alert, No apparent distress. Anxious. HEENT - PER, EOMI. Normal sclerae. Dry oral mucosa. Heart - tachycardic, normal rhythm. No murmurs. Lungs - Normal lung expansion, Normal respiratory effort, No respiratory distress, CTA bilaterally Abdomen - NT / ND; +BS; No rebound or guarding Extremities - no calf tenderness bilaterally, no swelling Musculoskeletal - Normal inspection, normal ROM Skin - Warm/Dry Neurological - Alert & oriented x3. Moving all extremities spontaneously. Normal speech. Psychological - Anxious affect Results Labs 05/22/25 09:15 05/22/25 09:15 Labs: Laboratory Results - last 24 hr 05/22/25 09:15 MCV 81.3 MCH 27.3 MCHC 33.6 RDW 14.6 Plt Count 322 D MPV 8.8 L Immature Gran % (Auto) 0.3 Neut % (Auto) 61.8 Lymph % (Auto) 31.1 [place] % (Auto) 5.5 Eos % (Auto) 0.9 Baso % (Auto) 0.4 Lymph # (Auto) 2.1 [place] # (Auto) 0.4 Eos # (Auto) 0.1 Baso # (Auto) 0.0 Abs Immat Gran (auto) 0.02 Absolute Neuts (auto) 4.3 Absolute Nucleated RBC 0.000 Nucleated RBC % (auto) 0.0 Anion Gap 15 Estim Creat Clear Calc 112.5 Estimated GFR > 60 Random Glucose 95 Lactic Acid 2.7 H* Calcium 8.3 L D Magnesium 1.8 Total Bilirubin 0.2 AST 32 H ALT 14 Alkaline Phosphatase 111 Total Protein 7.6 Albumin 4.0 Ethyl Alcohol 280 Assessment and Plan (1) Alcohol withdrawal: Qualifiers: Complication of substance-induced condition: uncomplicated Qualified Code(s): F10.930 - Alcohol use, unspecified with withdrawal, uncomplicated Status: Acute (2) Alcohol withdrawal seizure: Qualifiers: Complication of substance-induced condition: uncomplicated Qualified Code(s): F10.930 - Alcohol use, unspecified with withdrawal, uncomplicated; R56.9 - Unspecified convulsions Status: Acute (3) Acidosis, lactic: Status: Acute Plan Sabine Barraza is a 34 y/o woman admitted with: Seizure, likely alcohol withdrawal seizure. ?hx of epilepsy. ? Compliance. Admit to telemetry. Seizures and fall precautions. CIWA. Continue phenobarbital protocol. Continue thiamine, multivitamins, magnesium and folic acid. Continue gabapentin and topiramate. Alcohol abstinence recommended. Keppra level pending. Addiction medicine and social work/case management consults. Will obtain EEG (no prior EEGs results found). Acute lactic acidosis, secondary to seizure and alcohol. No evidence of acute infection. IV fluids given in the ED. Will continue IVFs. Continue to monitor. Mood disorder. Continue sertraline, topiramate and Seroquel. Psychiatric consult. DVT prophylaxis: Lovenox Code status: Full Patient will need hospitalization for at least 2 midnights for seizures and alcohol withdrawal symptoms management with anticonvulsants and close monitoring of vital signs and CIWA. Quality Stroke Does the patient have a stroke diagnosis?: No VTE Prior VTE?: No VTE Risk Level:: Medical - moderate - high VTE Device Contraindication: Treatment Not Indicated VTE Drug Contraindication: N/A - Med Ordered
--- NOTE | 2025-05-22 11:33 | PHA.MEDREC ---
Addendum entered by Eliseo Bernal RPh 05/22/25 11:45: Reviewed by [facility] Original Note: Pharmacy Consult ? Medication Reconciliation Pharmacy has completed the medication reconciliation. Spoke to patient to confirm med list. Patient states she is no longer taking Buspirone 5 mg, Quetiapine 50 mg, Sertraline 100 mg, and Vancomycin 125 mg. Patient reported she is suppose to be taking Magnesium Oxide 400 mg, Multivitamin, and Vitamin B1 1,000mg,but she has been out of refills and has not been able to take in a few weeks and Naltrexone 50 mg patient stopped taking because she began drinking agin.
[2025-05-22 11:58] LABS: ~Lactic Acid-LAB USE ONLY 2.6 mmol/L (0.5-2.0)
[2025-05-22] MEDS: Thiamine HCL 100 MG in 0.9 % Sodium Chloride 100 ML 202 MG IV (12:14)
[2025-05-22] MEDS: Lactated Ringers 1,000 ML 999 ML IV (12:25)
--- NOTE | 2025-05-22 12:30 | PC.NURSE ---
Valium dose held per MD request due to increased lethargy and hypotension.
[2025-05-22] MEDS: Dextrose 5 % and Lactated Ring 1,000 ML 125 ML IVCONT ×2 (12:39→21:27)
[2025-05-22] MEDS: PHENobarbitaL sodium 130 MG/ML VIAL IM Q3Hx2 151 MG IM ×2 (12:39→16:47)
[2025-05-22 13:40] LABS: Reflex Lactate? 2 Y
[2025-05-22 13:42] LABS: Cancel Lactic Acid Canceled
--- NOTE | 2025-05-22 16:41 | P.CNPS_ITS ---
History of Present Illness Date of Service: 05/22/25 Chief Complaint: etoh withdrawal seizure Reason for Consult: feeling depressed, alcohol abuse Requesting physician: Ranjan Garg Discussed with referring provider: Yes Sources of Information: patient interviewed and chart reviewed HPI Narrative: Per Hospitallist note: Sabine Barraza is a 34 years old woman with past medical history significant for alcohol abuse, seizures/epilepsy on Keppra, depression/anxiety was brought to the emergency department after she has been and event of seizure this morning that seems to be generalized. Prior to this event she was nauseous and vomiting. She also complained of headache, anxiety and tremulousness. She she has been drinking heavily over the last 3 weeks. She stopped taking her naloxone. It is unclear if she has been taking her home medications as prescribed Past Psychiatric History: Inpt: denies OP: none PHPx1 Past medication trials: sertraline, Seroquel, Topamax. Medical Evaluation Reviewed: Yes refer to medical team Personal & Social History: Patient has issues with her sister. Has been arguing with each other and she is the triggers . patient has been sober for 3 months priro to relapse this time. Report she has relapse on alcohol for a couple weeks- 3. Her daughter is under care of her parents. Review of Systems Review of Systems Constitutional: Denies fatigue and Denies fever(s) Cardiovascular: Denies chest pain and Denies dyspnea Respiratory: Denies dyspnea Gastrointestinal: Denies abdominal pain Psychiatric: denies suicidal ideation Endocrine: Denies fatigue [facility] Medical History Alcohol use disorder, severe, dependence Hypomagnesemia Acute hyponatremia Acute urinary retention Acute hypokalemia Epileptic seizure Alcohol withdrawal Seizure Acute dehydration Acute hypokalemia Acute alcohol intoxication Acute respiratory failure Acute hypokalemia Acute hyponatremia Alcohol withdrawal Status epilepticus Withdrawal seizures Depression Alcoholism Family History: Not discussed Social History: She is staying with sister who she identifies as her triggers Substance History: Relapse on alcohol the past 3 weeks. Prior to relapsed this time, she has the months sobriety. Since relapsed she did not take her naltrexone. Trauma History: Not discussed Diagnostics Vital Signs (24Hr): Vital Signs - 24 hr 05/22/25 08:46 05/22/25 09:15 05/22/25 10:06 Temperature 98.7 F 98.3 F Pulse Rate 111 H 104 H 107 H Respiratory Rate 20 22 H 17 Blood Pressure 125/79 103/79 113/77 Pulse Oximetry 98 100 100 Oxygen Delivery Method Room Air Room Air Room Air 05/22/25 14:51 Temperature 98.2 F Pulse Rate 92 Respiratory Rate 18 Blood Pressure 100/62 Pulse Oximetry 97 Oxygen Delivery Method Room Air BMI result Body Mass Index 18.5 Labs 05/22/25 09:15 05/22/25 09:15 Labs: Laboratory Results - last 48 hr 05/22/25 05/22/25 09:15 11:38 WBC 6.9 RBC 4.80 Hgb 13.1 Hct 39.0 MCV 81.3 MCH 27.3 MCHC 33.6 RDW 14.6 Plt Count 322 D MPV 8.8 L Immature Gran % (Auto) 0.3 Neut % (Auto) 61.8 Lymph % (Auto) 31.1 [place] % (Auto) 5.5 Eos % (Auto) 0.9 Baso % (Auto) 0.4 Lymph # (Auto) 2.1 [place] # (Auto) 0.4 Eos # (Auto) 0.1 Baso # (Auto) 0.0 Abs Immat Gran (auto) 0.02 Absolute Neuts (auto) 4.3 Absolute Nucleated RBC 0.000 Nucleated RBC % (auto) 0.0 Sodium 144 Potassium 3.5 Chloride 107 Carbon Dioxide 26 Anion Gap 15 BUN 8 L Creatinine 0.56 Estim Creat Clear Calc 112.5 Estimated GFR > 60 Random Glucose 95 Lactic Acid 2.7 H* Lactic Acid F/U @ 2Hr 2.6 H* Calcium 8.3 L D Magnesium 1.8 Total Bilirubin 0.2 AST 32 H ALT 14 Alkaline Phosphatase 111 Total Protein 7.6 Albumin 4.0 Ethyl Alcohol 280 Mental Status Exam Mental Status Exam Narrative: Appearance: wearing hospital gown, fair hygiene, in NAD Behavior: cooperative Psychomotor: no agitation or retardation noted Speech: clear, normal rate/rhythm/volume, spontaneous TP: linear TC: wanting help with anxiety and depression Mood: tired Affect: congruent SI: denies HI: none VH/AH: none Delusions: none Insight/judgment: poor x 2 but intact. Memory/cog: alert, oriented x 4. grossly intact to conversational testing. Medications Medications Current Medications Acetaminophen (Acetaminophen 325 Mg Tablet) 650 mg PO Q6H PRN PRN Reason: Pain, Mild 1-3,fever,headache Calcium Carbonate (Calcium Carbonate 750 Mg Tab.Chew) 750 mg PO Q4H PRN PRN Reason: Heartburn Duloxetine HCl (Duloxetine Hcl 20 Mg Capsule.Dr) 20 mg PO DAILY [facility] Folic Acid (Folic Acid 1 Mg Tablet) 1 mg PO DAILY [facility] Gabapentin (Gabapentin 300 Mg Capsule) 300 mg PO TID [facility] Thiamine HCl 100 mg/ Sodium (Chloride) 101 mls @ 202 mls/hr IV DAILY [facility] Last Infusion: 05/22/25 12:44 Dose: Infused Dextrose/Lactated Ringer's (D5lr) 1,000 mls @ 125 mls/hr IVCONT .Q8H [facility] Last Admin: 05/22/25 12:39 Dose: 125 mls/hr Levetiracetam (Levetiracetam 1,000 Mg Tablet) 1,000 mg PO BID [facility] Magnesium Hydroxide (Milk Of Magnesia 30 Ml Oral.Susp) 30 ml PO DAILY PRN PRN Reason: Constipation Magnesium Oxide (Magnesium Oxide 400 Mg Tablet) 400 mg PO BID [facility] Melatonin (Melatonin 3 Mg Tablet) 6 mg PO BEDTIME PRN PRN Reason: Insomnia Multivitamins/Vitamin C (Multivitamin Tablet) 1 tab PO DAILY [facility] Omeprazole (Omeprazole 20 Mg Capsule.Dr) 20 mg PO DAILY@0630 [facility] Pharmacy Consult (Consult Rx Etoh Phenob Im/Po) 1 each MISCELLANE ONCE PRN; Protocol PRN Reason: Consult order Phenobarbital (Phenobarbital 15 Mg Tablet) 45 mg PO BID [facility] Stop: 05/24/25 09:01 Phenobarbital (Phenobarbital 15 Mg Tablet) 15 mg PO BID [facility] Stop: 05/26/25 09:01 Phenobarbital (Phenobarbital 15 Mg Tablet) 15 mg PO DAILY [facility] Stop: 05/28/25 09:01 Potassium Chloride (Potassium Chloride Er 10 Meq Tablet.Er) 10 meq PO DAILY [facility] Prochlorperazine Edisylate (Prochlorperazine Edisylate 10 Mg/2 Ml Vial) 5 mg IVPUSH Q6H PRN PRN Reason: Nausea and Vomiting Sodium Chloride (0.9 % Sodium Chloride Flush 3 Ml Syringe) 3 ml IVFLUSH QSHIFT [facility] Thiamine HCl (Thiamine Hcl 100 Mg Tablet) 100 mg PO DAILY [facility] Allergies Allergies Allergy/AdvReac Type Severity Reaction Status Date / Time cat dander AdvReac Itching Verified 05/22/25 08:49 dog dander AdvReac Itching Verified 05/22/25 08:49 Iodinated Contrast Media AdvReac Hives Verified 03/27/25 18:23 (Contrast Dye) Assessment & Plan Assessment & Plan (1) Alcohol withdrawal: Qualifiers: Complication of substance-induced condition: uncomplicated Qualified Code(s): F10.930 - Alcohol use, unspecified with withdrawal, uncomplicated Status: Acute Code(s): F10.939 - Alcohol use, unspecified with withdrawal, unspecified (2) Depressed affect: Status: Acute Code(s): R45.89 - Other symptoms and signs involving emotional state Plan Per H&P note: Patient is is a 34 years old woman with past medical history significant for alcohol abuse, seizures/epilepsy on Keppra, depression/anxiety was brought to the emergency department after she has been and event of seizure this morning that seems to be generalized. Prior to this event she was nauseous and vomiting. She also complained of headache, anxiety and tremulousness. She she has been drinking heavily over the last 3 weeks. She stopped taking her naltrexone. It is unclear if she has been taking her home medications as prescribed Met with patient at 1500 in the emergency room, room 12: Patient was awakened from napping. Very pleasant and cooperative. Reports anxiety is 7, and depression right now is 3/10. Mood is tired . Reports history of diagnosed with depression and anxiety. She is not currently on any antidepressant medications. Reports she relapsed on alcohol 3 weeks ago and stopped taking naltrexone. Trigger was arguing with her sister at home. Patient is aware this provider to see her due to medical team refer to psych team. Upon discussion of medication history, patient has not on Cymbalta before. She agreed to start at low dose for depression/anxiety. Also agrees to get gabapentin increased up to 300 t.i.d. for depression anxiety. She has hyponatremia. Psych consult was done earlier couple of months ago advised not start patient on any medication that causing SIADH (syndrome of inappropriate antidiuretic hormone secretion) in which sertraline, topiramate, Seroquel were discontinued in the past. No other safety at this current time Cymbalta and gabapentin agent can potentially causing SIADH. PLAN: Cymbalta 20 mg daily for depression/anxiety/ 1st dose today Increase gabapentin from 200t to 300 3 times a day for anxiety. We will restart naltrexone after 5-7 days of not having alcohol in her system. Patient is interested in [facility], the treatment program. Hospitalist to send the referral to substance use junk removal specialist to refer patient to appropriate for aftercare. History of taking Vivitrol, however reports naltrexone was working better. Continue with current care plan from medical team Total time managing care of this patient today ____ minutes. Patient educated on: diagnosis, medication risk/benefits, substance abuse and therapeutic strategies Informed Consent: understands
[2025-05-22 19:03] LABS: INTERNATIONAL NORM RATIO 1.1 (0.9-1.1); Prothrombin Time 12.1 SEC (10.9-12.4)
[2025-05-22 20:54] LABS: Reflex Lactate? Lactic Acid Added
[2025-05-22 21:51] LABS: ~Lactic Acid-LAB USE ONLY 1.3 mmol/L (0.5-2.0)
[2025-05-22 22:58] LABS: Appearance Urine Clear; Glucose Urine UA Negative (Negative); PH 8.5 (5.0-9.0); Specific Gravity - Urine 1.015 (1.005-1.025); UMIC TRIGGER UACC YES; UPreg QC Valid YES
[2025-05-22 23:16] LABS: Cannabinoid Screen Urine Not Detected (Not Detect)
[2025-05-23 03:39] VITALS: BP 133/81; PULSE 82; RESP 16; TEMP 36.6; O2SAT 100
[2025-05-23] MEDS: Dextrose 5 % and Lactated Ring 1,000 ML 125 ML IVCONT ×2 (05:03→16:57)
[2025-05-23 06:38] LABS: MANUAL DIFF FLAG NO
[2025-05-23 06:41] LABS: Hematocrit 33.0 % (37.0-47.0); Hemoglobin 11.2 g/dl (12.0-16.0); Imm Gran Abs Auto 0.01 X10*3/uL (0.00-0.03); Imm Gran Pct Auto 0.2 % (0.0-0.4); Lymphocytes Absolute Auto 1.9 X10*3/uL (1.2-4.9); Mean Corpuscular HGB Conc 33.9 g/dl (31.0-35.0); Mean Corpuscular Hemoglobin 27.7 pg (27.0-33.0); Mean Corpuscular Volume 81.5 fL (80.0-98.0); NRBC Abs Auto 0.000 X10*3/uL (0.0-0.012); NRBC Pct Auto 0.0 /100WBC (0.0-0.2); Platelet Count 248 X10*3/uL (160-400); Red Blood Count 4.05 X10*6/uL (4.20-5.50); White Blood Count 5.7 X10*3/uL (4.8-10.8)
[2025-05-23 07:14] VITALS: BP 127/79; PULSE 78; RESP 18; TEMP 36.3; O2SAT 98
[2025-05-23 07:26] LABS: Alanine Aminotransferase 11 U/L (0-31); Albumin Level 3.6 g/dL (3.5-5.0); Alkaline Phosphatase 121 U/L (39-117); Anion Gap 11 (12-20); Aspartate Amino Transferase 43 U/L (5-31); Blood Urea Nitrogen 3 mg/dL (9-16); Calcium 8.5 mg/dL (8.4-10.2); Carbon Dioxide 21 mmol/L (22-29); Chloride 103 mmol/L (96-108); Creatinine Clr Calc Pharmacy 157.8; Estimated Glomerular Filt Rate > 60; Potassium 3.6 mmol/L (3.3-5.1); Sodium 131 mmol/L (135-145); Total Protein 7.3 g/dL (6.5-8.0)
[2025-05-23 07:52] LABS: Magnesium 1.3 mg/dL (1.6-2.6)
[2025-05-23] MEDS: 0.9 % Sodium Chloride Flush 3 ML SYRINGE IVFLUSH ×2 (08:39→16:21)
[2025-05-23] MEDS: Potassium Chloride ER 10 MEQ TABLET.ER PO (08:43)
[2025-05-23] MEDS: Thiamine HCL 100 MG in 0.9 % Sodium Chloride 100 ML 202 MG IV (08:44)
--- NOTE | 2025-05-23 09:47 | MHC.CM.PN ---
Pt. lives with her parents, PCP is confirmed: Rupert Flores MD. HCP discussed, pt. declined to complete at this time. She does not use home health services or DME, she can arrange a ride home at [place]. DCP: home, self care, CM to follow for DC needs.
[2025-05-23] MEDS: Magnesium Sulfate/H2O 2 GM/50 ML PIGGYBACK IV (10:28)
[2025-05-23 12:00] VITALS: BP 128/79; PULSE 82; RESP 18; TEMP 36.4; O2SAT 95
--- NOTE | 2025-05-23 15:31 | HO.PM.IMPN ---
Subjective Subjective Date of Service: 05/23/25 Interval History: No acute issues overnight. Tolerant of CIWA scale. Improved since admission Review of Systems Denies chest pain Denies shortness of breath Denies nausea vomiting diarrhea Denies fever chills Physical Exam Vital Signs: Vital Signs: Last Vital Signs Temp 97.6 F 05/23/25 12:00 Pulse 82 05/23/25 12:00 Resp 18 05/23/25 12:00 BP 128/79 05/23/25 12:00 Pulse Ox 95 05/23/25 12:00 O2 Del Method Room Air 05/23/25 12:00 BMI result Body Mass Index 19.4 Const: Other: Awake alert no acute distress Resp: Other: Clear to auscultation bilaterally no rales rhonchi or wheezes Cardio: Other: No S4; positive S1-S2; no S3 murmurs rubs or gallops GI: Other: Soft nontender nondistended normoactive bowel sounds Extrem: Other: No edema bilaterally Objective Data Active Medications Acetaminophen (Acetaminophen 325 Mg Tablet) 650 mg PO Q6H PRN PRN Reason: Pain, Mild 1-3,fever,headache Last Admin: 05/23/25 06:20 Dose: 650 mg Documented By: DENNIS Calcium Carbonate (Calcium Carbonate 750 Mg Tab.Chew) 750 mg PO Q4H PRN PRN Reason: Heartburn Duloxetine HCl (Duloxetine Hcl 20 Mg Capsule.Dr) 20 mg PO DAILY [facility] Last Admin: 05/23/25 08:40 Dose: 20 mg Documented By: MAXIMILIANO Folic Acid (Folic Acid 1 Mg Tablet) 1 mg PO DAILY [facility] Last Admin: 05/23/25 08:43 Dose: 1 mg Documented By: MAXIMILIANO Gabapentin (Gabapentin 300 Mg Capsule) 300 mg PO TID [facility] Last Admin: 05/23/25 08:42 Dose: 300 mg Documented By: MAXIMILIANO Thiamine HCl 100 mg/ Sodium (Chloride) 101 mls @ 202 mls/hr IV DAILY [facility] Last Infusion: 05/23/25 10:06 Dose: Infused Documented By: JESS Dextrose/Lactated Ringer's ([id number]) 1,000 mls @ 125 mls/hr IVCONT .Q8H [facility] Last Admin: 05/23/25 13:18 Dose: Not Given Documented By: MAXIMILIANO Non-Admin Reason: IV Running Levetiracetam (Levetiracetam 1,000 Mg Tablet) 1,000 mg PO BID [facility] Last Admin: 05/23/25 08:44 Dose: 1,000 mg Documented By: MAXIMILIANO Magnesium Hydroxide (Milk Of Magnesia 30 Ml Oral.Susp) 30 ml PO DAILY PRN PRN Reason: Constipation Magnesium Oxide (Magnesium Oxide 400 Mg Tablet) 400 mg PO BID [facility] Last Admin: 05/23/25 08:40 Dose: 400 mg Documented By: MAXIMILIANO Melatonin (Melatonin 3 Mg Tablet) 6 mg PO BEDTIME PRN PRN Reason: Insomnia Multivitamins/Vitamin C (Multivitamin Tablet) 1 tab PO DAILY [facility] Last Admin: 05/23/25 08:42 Dose: 1 tab Documented By: MAXIMILIANO Omeprazole (Omeprazole 20 Mg Capsule.Dr) 20 mg PO DAILY@0630 [facility] Last Admin: 05/23/25 05:04 Dose: 20 mg Documented By: DENNIS Pharmacy Consult (Consult Rx Etoh Phenob Im/Po) 1 each MISCELLANE ONCE PRN; Protocol PRN Reason: Consult order Phenobarbital (Phenobarbital 15 Mg Tablet) 45 mg PO BID [facility] Stop: 05/24/25 09:01 Last Admin: 05/23/25 08:40 Dose: 45 mg Documented By: MAXIMILIANO Phenobarbital (Phenobarbital 15 Mg Tablet) 15 mg PO BID [facility] Stop: 05/26/25 09:01 Phenobarbital (Phenobarbital 15 Mg Tablet) 15 mg PO DAILY [facility] Stop: 05/28/25 09:01 Potassium Chloride (Potassium Chloride Er 10 Meq Tablet.Er) 10 meq PO DAILY [facility] Last Admin: 05/23/25 08:43 Dose: 10 meq Documented By: MAXIMILIANO Prochlorperazine Edisylate (Prochlorperazine Edisylate 10 Mg/2 Ml Vial) 5 mg IVPUSH Q6H PRN PRN Reason: Nausea and Vomiting Sodium Chloride (0.9 % Sodium Chloride Flush 3 Ml Syringe) 3 ml IVFLUSH QSHIFT [facility] Last Admin: 05/23/25 08:39 Dose: 3 ml Documented By: MAXIMILIANO Thiamine HCl (Thiamine Hcl 100 Mg Tablet) 100 mg PO DAILY [facility] Last Admin: 07/23/25 10:05 Dose: Not Given Documented By: JESS Non-Admin Reason: iv thiamine given Labs 05/23/25 06:28 05/23/25 06:28 Labs: Laboratory Results - last 24 hr 05/22/25 05/22/25 05/22/25 18:50 21:24 22:40 MCV MCH MCHC RDW Plt Count MPV Immature Gran % (Auto) Neut % (Auto) Lymph % (Auto) Caroline % (Auto) Eos % (Auto) Baso % (Auto) Lymph # (Auto) Caroline # (Auto) Eos # (Auto) Baso # (Auto) Abs Immat Gran (auto) Absolute Neuts (auto) Absolute Nucleated RBC Nucleated RBC % (auto) PT 12.1 INR 1.1 Anion Gap Estim Creat Clear Calc Estimated GFR Random Glucose Lactic Acid 2.1 H* Lactic Acid F/U @ 2Hr 1.3 Calcium Magnesium Total Bilirubin AST ALT Alkaline Phosphatase Total Protein Albumin Urine Color Yellow Urine Appearance Clear Urine pH 8.5 Ur Specific [place] 1.015 Urine Protein Negative Urine Glucose (UA) Negative Urine Ketones Negative Urine Blood Moderate (2+) H Urine Nitrite Negative Ur Leukocyte Esterase Negative Urine RBC 0-2 Urine WBC 0-5 Ur Squamous Epith Cells 3-5 Urine Bacteria Trace Hyaline Casts 0-2 Urine Test NEGATIVE Urine Opiates Screen Not Detected Ur Buprenorphine Scrn Not Detected Ur Oxycodone Screen Not Detected Urine Methadone Screen Not Detected Urine Fentanyl Screen Not Detected Ur Barbiturates Screen POSITIVE H Ur Phencyclidine Scrn Not Detected Ur Amphetamines Screen Not Detected U Benzodiazepines Scrn POSITIVE H Urine Cocaine Screen Not Detected U Marijuana (THC) Screen Not Detected 05/23/25 06:28 MCV 81.5 MCH 27.7 MCHC 33.9 RDW 13.8 Plt Count 248 MPV 9.1 L Immature Gran % (Auto) 0.2 Neut % (Auto) 53.6 Lymph % (Auto) 34.3 Caroline % (Auto) 9.4 Eos % (Auto) 2.3 Baso % (Auto) 0.2 Lymph # (Auto) 1.9 Caroline # (Auto) 0.5 Eos # (Auto) 0.1 Baso # (Auto) 0.0 Abs Immat Gran (auto) 0.01 Absolute Neuts (auto) 3.0 Absolute Nucleated RBC 0.000 Nucleated RBC % (auto) 0.0 PT INR Anion Gap 11 L Estim Creat Clear Calc 157.8 Estimated GFR > 60 Random Glucose 101 Lactic Acid Lactic Acid F/U @ 2Hr Calcium 8.5 Magnesium 1.3 L* Total Bilirubin 1.3 H AST 43 H ALT 11 Alkaline Phosphatase 121 H Total Protein 7.3 Albumin 3.6 Urine Color Urine Appearance Urine pH Ur Specific [place] Urine Protein Urine Glucose (UA) Urine Ketones Urine Blood Urine Nitrite Ur Leukocyte Esterase Urine RBC Urine WBC Ur Squamous Epith Cells Urine Bacteria Hyaline Casts Urine Test Urine Opiates Screen Ur Buprenorphine Scrn Ur Oxycodone Screen Urine Methadone Screen Urine Fentanyl Screen Ur Barbiturates Screen Ur Phencyclidine Scrn Ur Amphetamines Screen U Benzodiazepines Scrn Urine Cocaine Screen U Marijuana (THC) Screen Assessment and Plan (1) Alcohol use disorder, severe, dependence: Status: Acute (2) Seizures: Status: Acute Plan Sabine Barraza is a 34 y/o woman admitted with acute alcohol withdrawal with seizures 1.Alcohol withdrawl with seizures -CIWA scale with phenobarb protocol -seizure precautions (none since admission) -continue Keppra as ordered 2. Mood disorder -seen by Psychiatry -recommendations implemented Lovenox Full Patient will require ongoing hospitalization to be observed on CIWA scale and given phenobarb protocol Quality Stroke Does the patient have a stroke diagnosis?: No VTE Prior VTE?: No VTE Risk Level:: Medical - moderate - high VTE Device Contraindication: Treatment Not Indicated VTE Drug Contraindication: N/A - Med Ordered
[2025-05-23 15:59] VITALS: BP 134/79; PULSE 87; RESP 18; TEMP 36.4; O2SAT 98
[2025-05-23 19:17] VITALS: BP 130/85; PULSE 78; RESP 16; TEMP 37; O2SAT 99
[2025-05-24] VITALS: BP 124/85; PULSE 69; RESP 16; TEMP 36.8; O2SAT 100
--- NOTE | 2025-05-24 | EEG_ITS ---
This is a 16 channel EEG with an EKG lead. Patient is reported awake during the tracing. Background EEG rhythm is symmetric alpha posteriorly and lower amplitude fast anteriorly. Photic stimulation does not produce any significant driving. Hyperventilation is unremarkable. Some lead and muscle artifacts are noted. No definite sharp wave spikes or paroxysmal tendency noted. Cardiac lead does not reveal any significant abnormality. Impression: Unremarkable EEG. MTDD
[2025-05-24 00:07] VITALS: BP 124/85; PULSE 69; RESP 16; TEMP 36.8; O2SAT 100
[2025-05-24] MEDS: Dextrose 5 % and Lactated Ring 1,000 ML 125 ML IVCONT (01:06)
[2025-05-24 04:00] VITALS: BP 116/77; PULSE 98; RESP 16; TEMP 37.2; O2SAT 99
[2025-05-24 06:59] VITALS: BP 110/72; PULSE 71; RESP 17; TEMP 36.1; O2SAT 98
[2025-05-24] MEDS: Potassium Chloride ER 10 MEQ TABLET.ER PO (08:04)
[2025-05-24] MEDS: Thiamine HCL 100 MG in 0.9 % Sodium Chloride 100 ML 202 MG IV (08:09)
[2025-05-24] MEDS: 0.9 % Sodium Chloride Flush 3 ML SYRINGE IVFLUSH ×2 (08:18→15:07)
[2025-05-24 08:41] LABS: MANUAL DIFF FLAG NO
[2025-05-24 08:43] LABS: Hematocrit 34.4 % (37.0-47.0); Hemoglobin 11.7 g/dl (12.0-16.0); Imm Gran Abs Auto 0.02 X10*3/uL (0.00-0.03); Imm Gran Pct Auto 0.3 % (0.0-0.4); Lymphocytes Absolute Auto 2.1 X10*3/uL (1.2-4.9); Mean Corpuscular HGB Conc 34.0 g/dl (31.0-35.0); Mean Corpuscular Hemoglobin 27.7 pg (27.0-33.0); Mean Corpuscular Volume 81.3 fL (80.0-98.0); NRBC Abs Auto 0.000 X10*3/uL (0.0-0.012); NRBC Pct Auto 0.0 /100WBC (0.0-0.2); Platelet Count 232 X10*3/uL (160-400); Red Blood Count 4.23 X10*6/uL (4.20-5.50); White Blood Count 6.6 X10*3/uL (4.8-10.8)
[2025-05-24 09:08] LABS: Alanine Aminotransferase 16 U/L (0-31); Albumin Level 3.9 g/dL (3.5-5.0); Alkaline Phosphatase 142 U/L (39-117); Anion Gap 10 (12-20); Aspartate Amino Transferase 37 U/L (5-31); Blood Urea Nitrogen 3 mg/dL (9-16); Calcium 9.0 mg/dL (8.4-10.2); Carbon Dioxide 23 mmol/L (22-29); Chloride 102 mmol/L (96-108); Creatinine Clr Calc Pharmacy 144.2; Estimated Glomerular Filt Rate > 60; Potassium 3.5 mmol/L (3.3-5.1); Sodium 131 mmol/L (135-145); Total Protein 7.7 g/dL (6.5-8.0)
[2025-05-24 11:16] VITALS: BP 113/72; PULSE 74; RESP 18; TEMP 36.5; O2SAT 99
--- NOTE | 2025-05-24 12:37 | PM.DS ---
DS: Providers Provider Date of Service: 05/24/25 Date of admission: 05/22/25 10:47 Date of discharge: 05/24/25 Primary care physician: Rupert Flores MD Consults: 05/22/25 11:23 Addiction Medicine Provider Routine Consulting Provider: Addiction Covering Reason for consultation: Alcohol abuse Has provider been notified: No 05/22/25 11:43 Consult to Psychiatry Routine [place]ing [place] [facility] [place] Reason for consultation: feeling depressed, alcohol abuse Has provider been notified: No DS: Diagnosis Discharge Diagnosis (1) Alcohol use disorder, severe, dependence: Status: Acute (2) Seizures: Status: Acute DS: Summary Hospital Course Hospital Course: 34 years old woman with past medical history significant for alcohol abuse, seizures/epilepsy on Keppra, depression/anxiety was brought to the emergency department after she has been and event of seizure this morning that seems to be generalized. Prior to this event she was nauseous and vomiting. She also complained of headache, anxiety and tremulousness. She she has been drinking heavily over the last 3 weeks. She stopped taking her naloxone. It is unclear if she has been taking her home medications as prescribed. She currently denied any abdominal pain or diarrhea. She did not report any chest pain cough, palpitations or shortness on breath. She was not very specific about the quantity of alcohol intake. The last time she drank alcohol was last night. She uses cocaine occasions. Denied tobacco smoking. In the ED, she was found to have mild degree of tachycardia. The other vital signs are normal. Blood workup showed no leukocytosis. There is lactic acidosis, 2.7. Hemoglobin is 13.1 and platelets 322. There are no significant electrolyte imbalances. Renal function is normal. LFT are remarkable for mildly elevated AST. ETOH level is 280. Keppra level is pending. ECG showed sinus tachycardia, heart rate 103 BP and without ischemic changes; QT interval is not prolonged. ED tx: Valium 5 mg IV, phenobarbital initiated, Keppra 1500 mg p.o., NS 1 L bolus Hospital course Patient admitted to telemetry where monitor failed to demonstrate any acute dysrhythmias. She is maintained on the CIWA protocol and had no further seizures since admission. Tolerated phenobarb without issue. EEG was done and is pending at this time however it is felt that her seizure was provoked by alcohol. She was seen by addiction Medicine and has a post hospitalization care plan set in place. She knows to avoid alcohol at all cost Time Attestation Discharge Coordination Time (in mins): 35 Quality: Safe Use of Opioids Does Pt have an Active Cancer Diagnosis on the Problem List?: No Quality: Stroke Does the patient have a stroke diagnosis?: No Physical Exam Vital Signs: Vital Signs: Last Vital Signs Temp 97.7 F 05/24/25 11:16 Pulse 74 05/24/25 11:16 Resp 18 05/24/25 11:16 BP 113/72 05/24/25 11:16 Pulse Ox 99 05/24/25 11:16 O2 Del Method Room Air 05/24/25 11:16 BMI result Body Mass Index 19.4 Const: Other: Awake alert no acute distress Resp: Other: Clear to auscultation bilaterally no rales rhonchi or wheezes Cardio: Other: No S4; positive S1-S2; no S3 murmurs rubs or gallops GI: Other: Soft nontender nondistended normoactive bowel sounds Extrem: Other: No edema bilaterally DS: Data Data Completed and Pending Completed studies during hospitalization [Text1]: Procedures Detoxification Services for Substance Abuse Treatment (03/27/25) Insertion of Endotracheal Airway into Trachea, Via Natural or Artificial Opening (06/18/24) Insertion of Infusion Device into Superior Vena Cava, Percutaneous Approach (06/18/24) Respiratory Ventilation, 24-96 Consecutive Hours (06/18/24) Ultrasonography of Superior Vena Cava, Guidance (06/18/24) Labs on day of discharge: Laboratory Results - last 24 hr 05/24/25 08:12 WBC 6.6 RBC 4.23 Hgb 11.7 L Hct 34.4 L MCV 81.3 MCH 27.7 MCHC 34.0 RDW 14.0 Plt Count 232 MPV 9.5 Immature Gran % (Auto) 0.3 Neut % (Auto) 56.7 Lymph % (Auto) 32.6 [place] % (Auto) 6.1 Eos % (Auto) 4.0 Baso % (Auto) 0.3 Lymph # (Auto) 2.1 [place] # (Auto) 0.4 Eos # (Auto) 0.3 Baso # (Auto) 0.0 Abs Immat Gran (auto) 0.02 Absolute Neuts (auto) 3.7 Absolute Nucleated RBC 0.000 Nucleated RBC % (auto) 0.0 Sodium 131 L Potassium 3.5 Chloride 102 Carbon Dioxide 23 Anion Gap 10 L BUN 3 L Creatinine 0.46 L Estim Creat Clear Calc 144.2 Estimated GFR > 60 Fasting Glucose 104 H Calcium 9.0 Total Bilirubin 0.6 AST 37 H ALT 16 Alkaline Phosphatase 142 H Total Protein 7.7 Albumin 3.9 Discharge Plan Discharge Anticipated Discharge Date/Time: 05/24/25 12:26 Patient Disposition: Home, Self-Care Discharge Diagnosis: Alcohol withdrawal syndrome Referrals: Rupert Flores MD [Primary Care Provider, [facility]] - 1 Week Discharge Medications: New duloxetine 20 mg Capsule,Delayed Release(Dr/Ec) 20 mg PO DAILY Qty: 30 0RF Continued folic acid 1 mg Tablet 1 mg PO DAILY Qty: 30 0RF thiamine mononitrate (vit B1) 100 mg Tablet 100 mg PO DAILY Qty: 30 0RF omeprazole 20 mg capsule,delayed release(DR/EC) 20 mg PO DAILY@0630 naltrexone 50 mg Tablet 50 mg PO DAILY Qty: 30 0RF gabapentin 100 mg Capsule 200 mg PO TID Qty: 180 0RF sodium chloride 1,000 mg Tablet,Soluble 1,000 mg PO TID Qty: 30 0RF levetiracetam 1,000 mg Tablet 1,000 mg PO BID Qty: 180 0RF magnesium oxide 400 mg (241.3 mg magnesium) tablet 400 mg PO BID Therapeutic-M 9 mg iron-400 mcg tablet 1 tab PO DAILY potassium chloride 10 mEq capsule, extended release 10 meq PO DAILY Discharge Orders: Discharge Order (Routine); Ordered 05/24/25 Ordered By: Ugo Hart Diet: Advance to usual diet Activity on Discharge: As tolerated Stand Alone Forms: Patient Portal Discharge page Print Language: Romanian Care Plan Goals: Resume all medicines as taken prior to hospitalization Health Concerns: Continue seizure medicine as ordered; seizure was likely provoked by alcohol use Plan of Treatment: Avoid alcohol use. Follow up with the addiction Medicine as scheduled Assessment: See discharge summary
--- NOTE | 2025-05-24 13:14 | MHC.CM.PN ---
pt. has been medically cleared to OR, she will go home via private transport, plan is self care.
[2025-05-24 23:48] LABS: Levetiracetam Keppra 72.1 mcg/mL (6.0-46.0)
== END 2025-05-24 17:20 | disposition home or self-care (01) | DRG 775 ==
LOC: HO.ED 10:48 → HO.EDOVER 10:51 → HO.IMC 19:29
PROVIDERS: Internal Medicine; Admitting Provider Internal Medicine; Emergency Provider Emergency Medicine; PCP Family Medicine; Visit Provider Hospitalist
DX: F10.239 Alcohol dependence with withdrawal, unspecified (principal); R56.9 Unspecified convulsions; F39 Unspecified mood [affective] disorder; G40.909 Epilepsy, unspecified, not intractable, without status epilepticus; Y90.8 Blood alcohol level of 240 mg/100 ml or more; Z79.899 Other long term (current) drug therapy
CPT/HCPCS: 36415; 80053; 80177; 80307; 81001; 81025; 83605; 83735; 85025; 85610; 93005; 95816; 99285; J2560; J3360; J3411; J3475; J7120; S9485

== ENCOUNTER → 2025-05-22 09:19 | Outpatient (BNV) | payer OTHER, SELFPAY | PROVIDERS: Admitting Provider Internal Medicine; Emergency Provider Emergency Medicine; PCP Family Medicine; Visit Provider Internal Medicine Cardiovascular Disease | DX: R00.0 Tachycardia, unspecified (principal) | CPT/HCPCS: 93010 ==

== ENCOUNTER 2025-05-22 10:47 | Outpatient (BNV) | payer OTHER, SELFPAY | END 2025-05-24 09:10 | PROVIDERS: Admitting Provider Internal Medicine; Emergency Provider Emergency Medicine; PCP Family Medicine; Visit Provider Psychiatry & Neurology Neurology | DX: F10.930 Alcohol use, unspecified with withdrawal, uncomplicated (principal) | CPT/HCPCS: 95816 ==

== ENCOUNTER → 2025-05-22 10:47 | Outpatient (BNV) | payer OTHER, SELFPAY | PROVIDERS: Admitting Provider Internal Medicine; Emergency Provider Emergency Medicine; PCP Family Medicine; Visit Provider Internal Medicine | DX: E87.20 Acidosis, unspecified (principal); R56.9 Unspecified convulsions; F10.930 Alcohol use, unspecified with withdrawal, uncomplicated | CPT/HCPCS: 99222; 99232; 99239 ==

== ENCOUNTER → 2025-05-22 10:47 | Outpatient (BNV) | payer OTHER, SELFPAY | PROVIDERS: Admitting Provider Internal Medicine; Emergency Provider Emergency Medicine; PCP Family Medicine; Visit Provider Nurse Practitioner Psychiatric/Mental Health | DX: F10.930 Alcohol use, unspecified with withdrawal, uncomplicated (principal); R45.89 Other symptoms and signs involving emotional state | CPT/HCPCS: 99232 ==

== ENCOUNTER 2025-07-07 14:00 | Inpatient (IN) | payer OTHER, SELFPAY ==
[2025-07-07] VITALS (7 sets, daily range): BP systolic 114–147; BP diastolic 81–106; PULSE 117–157; RESP 14–20; TEMP 36.2–37.1; O2SAT 97–100; BMI 17.5
--- NOTE | ~2025-07-07 | XR_ITS ---
CLINICAL HISTORY: vomiting ? aspirationn 1 view chest x-ray Comparison: CR - XR CHEST 1V - 01/01/25 22:24 EST Findings: No consolidation or effusion. Heart size is normal. No acute fracture. IMPRESSION: 1. No acute findings. This document has been electronically signed by: Edwin Meyers MD on 07/07/2025 17:51:48
--- NOTE | 2025-07-07 14:05 | ED.GENADULT ---
HPI - General Adult General Chief complaint: ETOH/Substance Use Stated complaint: ETOH WITHDRAWAL PER EMS Time Seen by Provider: 07/07/25 14:50 Source: patient and EMS Mode of arrival: EMS Limitations: no limitations History of Present Illness ED Provider: RAFAEL Palacios HPI narrative: This is a 34-year-old female history of alcohol withdrawal with history of delirium tremens, status epilepticus, anxiety, depression comes in with concerns of alcohol w/ drawl. Patient reports she drinks 3 to 4 times a week, typically drinks 5 nips, last drink was yesterday evening she reports she was dirnking to feel better. She reports in the past she has been intubated for delirium tremens with status epileptics and she is afraid that this may happen again. She tells me she has periods where she will drink heavily, stopped drinking abruptly and then start chugging water. She denies suicidal and homicidal ideation. Denies hallucinations. Tells me she feels like her heart is racing and she feels extremely anxious. Denies chest pain, shortness of breath, nausea, vomiting, vision changes, dizziness, weakness, headaches. Related Data Home Medications ?Medication ?Instructions ?Recorded ?Confirmed omeprazole 20 mg capsule,delayed 20 mg PO DAILY@0630 03/28/25 05/22/25 release magnesium oxide 400 mg (241.3 mg 400 mg PO BID 05/22/25 05/22/25 magnesium) tablet multivitamin-iron 9 mg-folic acid 1 tab PO DAILY 05/22/25 05/22/25 400 mcg-calcium and minerals tablet (Therapeutic-M) potassium chloride 10 mEq 10 meq PO DAILY 05/22/25 05/22/25 capsule,extended release Previous Rx's ?Medication ?Instructions ?Recorded folic acid 1 mg tablet 1 mg PO DAILY #30 tabs 05/24/23 thiamine mononitrate (vit B1) 100 100 mg PO DAILY #30 tabs 01/26/25 mg tablet gabapentin 100 mg capsule 200 mg (2 x 100 mg) PO TID #180 04/01/25 caps levetiracetam 1,000 mg tablet 1,000 mg PO BID #180 tabs 04/01/25 naltrexone 50 mg tablet 50 mg PO DAILY #30 tabs 04/01/25 sodium chloride 1,000 mg soluble 1,000 mg PO TID #30 tabs 04/01/25 tablet duloxetine 20 mg capsule,delayed 20 mg PO DAILY #30 caps 05/24/25 release Allergies Allergy/AdvReac Type Severity Reaction Status Date / Time cat dander AdvReac Itching Verified 07/07/25 14:12 dog dander AdvReac Itching Verified 07/07/25 14:12 Iodinated Contrast Media AdvReac Hives Verified 07/07/25 14:12 (Contrast Dye) Review of Systems Review of Systems: Yes all other systems are reviewed and are negative PMFSH Past Medical History Attestation statement: The following information was validated with the patient. Source: old records reviewed and nursing notes reviewed Medical History Depressed affect Seizures Alcohol use disorder, severe, dependence Hypomagnesemia Acute hyponatremia Acute urinary retention Acute hypokalemia Epileptic seizure Alcohol withdrawal Seizure Acute dehydration Acute hypokalemia Acute alcohol intoxication Acute respiratory failure Acute hypokalemia Acute hyponatremia Alcohol withdrawal Status epilepticus Withdrawal seizures Depression Alcoholism Social History Social History Household Members: Family Household Members Other:: Currently lives with parents Housing: House Do you presently have visiting nurse or other home services: No Unable to assess alcohol history related to: Unable to respond Alcohol intake: current Alcohol intake frequency: 3 or more drinks per day Alcohol type: hard liquor Comment: pt refused bed alarm Patient Tobacco Use Status: Tobacco use Unknown Tobacco use type: Smokeless Tobacco Smoked in Last 30 Days: Yes e-Cigarette/Vaping Use: Currently Using Substance Use Type: Crack/Cocaine Advance Directives: No Advance Directives Information Provided: Yes service: No Physical Exam ED Exam Exam: Appearance: Alert.? Oriented X3.? + appears unwell. Head: Normocephalic, atraumatic, no step-offs or deformities Eyes: Pupils equal, round and reactive to light.? ENT: Pharynx normal.? + tongue fasciculations Neck: Normal inspection.? Neck supple.? CVS: Normal heart rate and rhythm.? Pulses normal.? Respiratory: No respiratory distress.? Breath sounds normal.? Abdomen: Soft and nontender.? Skin: Skin warm and dry.? Normal skin color.? Normal skin turgor.? Extremities: No lower extremity edema.? No calf ttp. 5/5 strength to bilateral upper and lower extremities + bilateral upper extremity resting tremor Back: No midline tenderness, no C-spine tenderness, full range of motion, no CVA tenderness bilaterally Neuro: Oriented X 3.? No motor deficit.? No sensory deficit. CN 2-12 intact Vital Signs: Vital Signs - 24 hr 07/07/25 14:08 07/07/25 14:42 07/07/25 16:17 Temperature 97.2 F 98.4 F Pulse Rate 157 H 130 H 151 H Respiratory Rate 17 20 19 Blood Pressure 114/81 135/106 H 137/98 H Pulse Oximetry 98 97 98 Oxygen Delivery Method Room Air Room Air BMI result Body Mass Index 17.5 vss Course Reevaluation(s) Reevaluation #1: Patient doing well with meds. She is a very difficult IV. Nursing will try ultrasound-guided if not I can try Time: 14:30 Reevaluation #2: Patient noted to have leukocytosis 18.1 elevated hemoglobin and hematocrit as well as platelets. I suspect this is secondary to hemoconcentrated state rather than infection. Chemistry with low potassium IV potassium will be given. Anion gap of 26 likely secondary to alcohol. Patient's magnesium 1.4 IV repletion ordered. Transaminases elevated in a nearly 2-1 fashion likely secondary to chronic alcohol abuse. I will add a lactic acid to this patient. Time: 16:22 Reevaluation #3: Patient's lactic acid 9.2 this is likely in the setting of alcohol use/intoxication. However patient does have elevated white blood cell count will cover with broad-spectrum antibiotics she is currently receiving fluids. Time: 16:56 Medications Administered Generic Name Dose Route Start Last Admin Trade Name Freq PRN Reason Stop Dose Admin Sodium Chloride 1,000 mls @ 999 mls/hr 07/07/25 16:30 07/07/25 16:45 Ns IV 07/07/25 17:30 999 mls/hr .Q1H1M ARTURO Administration Magnesium Sulfate 2 gm in 50 mls @ 25 mls/hr 07/07/25 16:18 07/07/25 16:45 Magnesium Sulfate/H2o IV 07/07/25 18:17 25 mls/hr ONCE ONE Administration Potassium Chloride 10 meq in 100 mls @ 100 mls/hr 07/07/25 16:30 07/07/25 16:46 Potassium Chloride/H20 IV 07/07/25 20:29 100 mls/hr Q1H ARTURO Administration Discontinued Medications Generic Name Dose Route Start Last Admin Trade Name Hermann PRN Reason Stop Dose Admin Diazepam 2.5 mg 07/07/25 14:03 07/07/25 14:31 Diazepam 10 Mg/2 Ml Cartridge IVPUSH 07/07/25 14:04 2.5 mg STAT STA Administration Diazepam 2.5 mg 07/07/25 14:10 07/07/25 14:32 Diazepam 10 Mg/2 Ml Cartridge IVPUSH 07/07/25 14:11 2.5 mg STAT STA Administration Phenobarbital Sodium 266 mg 07/07/25 15:00 07/07/25 14:32 Phenobarbital Sodium 130 Mg/Ml Im Once IM 07/07/25 15:01 266 mg ONCE@1500 ARTURO Administration Medical Decision Making Medical Decision Making [facility] Narrative: 1406 34 year old female presents w/ concerns that she may go into alcohol withdrawal. Physical exam patient tachycardic, tachypneic, anxious appearing. UE tremors and tongue faciculations History and physical exam concerning alcohol withdrawal with likely early delirium tremens. Will rule out metabolic derangements. No signs of seizure at this time patient denies seizures prior to arrival. Will monitor for this. Plan labs, urine. Will start patient with diazepam and phenobarbital Differential Diagnosis Differential Diagnoses: The differential diagnosis associated with the presentation includes (History and physical exam concerning alcohol withdrawal with likely early delirium tremens. Will rule out metabolic derangements. No signs of seizure at this time patient denies seizures prior to arrival. Will monitor for this.) Admission/Observation Consideration of admission/observation: Escalation of care including admission/observation considered Lab Data [facility] Lab Attestation statement: I reviewed the patient's lab results. 07/07/25 15:50 07/07/25 15:50 Labs: Lab Results 07/07/25 Range/Units 15:50 WBC 18.1 H (4.8-10.8) X10*3/uL RBC 5.69 H D (4.20-5.50) X10*6/uL Hgb 16.1 H D (12.0-16.0) g/dl Hct 46.6 D (37.0-47.0) % MCV 81.9 (80.0-98.0) fL MCH 28.3 (27.0-33.0) pg MCHC 34.5 (31.0-35.0) g/dl RDW 19.9 H (11.0-16.0) % Plt Count 816 H D (160-400) X10*3/uL MPV 8.1 L (9.4-12.3) fL Immature Gran % (Auto) 0.3 (0.0-0.4) % Neut % (Auto) 86.2 H (45-73) % Lymph % (Auto) 7.8 L (20-40) % [place] % (Auto) 5.3 (2-11) % Eos % (Auto) 0.0 (0-4) % Baso % (Auto) 0.4 (0-2) % Lymph # (Auto) 1.4 (1.2-4.9) X10*3/uL [place] # (Auto) 1.0 (0.1-1.2) X10*3/uL Eos # (Auto) 0.0 (0.0-0.4) X10*3/uL Baso # (Auto) 0.1 (0.0-0.2) X10*3/uL Abs Immat Gran (auto) 0.06 H (0.00-0.03) X10*3/uL Absolute Neuts (auto) 15.6 H (2.0-8.3) x10*3/uL Absolute Nucleated RBC 0.000 (0.0-0.012) X10*3/uL Nucleated RBC % (auto) 0.0 (0.0-0.2) /100WBC Sodium 142 (135-145) mmol/L Potassium 3.1 L (3.3-5.1) mmol/L Chloride 94 L (96-108) mmol/L Carbon Dioxide 25 (22-29) mmol/L Anion Gap 26 H (12-20) BUN 9 (9-16) mg/dL Creatinine 0.69 (0.5-1.4) mg/dL Estim Creat Clear Calc 86.4 Estimated GFR > 60 Random Glucose 143 H (60-115) mg/dL Calcium 8.8 (8.4-10.2) mg/dL Magnesium 1.4 L* (1.6-2.6) mg/dL Total Bilirubin 0.4 (0.0-1.0) mg/dL AST 52 H (5-31) U/L ALT 37 H (0-31) U/L Alkaline Phosphatase 139 H (39-117) U/L Total Protein 8.4 H (6.5-8.0) g/dL Albumin 4.4 (3.5-5.0) g/dL Ethyl Alcohol 356 H* mg/dL Independent Historian Clinical information obtained from an independent historian. History obtained from or confirmed by: EMS External Record Review External record reviewed: Inpatient record, Office record, Outpatient record, Prior outpatient labs, Prior outpatient radiology, Primary care record and Outside ED record Chronic Conditions Patient?s care impacted by: Other (See HPI) Critical Care Time Critical Care Time Critical Care Time: Yes Total Critical Care Time: 35 Attestation: I attest to this time spent taking care of the patient, obtaining history, physical, reviewing labs, imaging, treatment of patients condition +/- specialist/hospitalist consult +/- procedure Discharge Plan Discharge Clinical Impression: Alcoholic intoxication, Dehydration, High anion gap metabolic acidosis, Alcohol abuse with withdrawal Patient Disposition: Admitted As Inpatient Print Language: Khmer
[2025-07-07] MEDS: diazePAM 10 MG/2 ML CARTRIDGE 2.5 MG IVPUSH ×2 (14:31→14:32)
[2025-07-07] MEDS: PHENobarbitaL sodium 130 MG/ML IM ONCE 266 MG IM (14:32)
--- OUTSIDE RECORDS SUMMARY | 2025-07-07 14:51 | XMS_ITS | Clinical Summary ---
Author Organization [facility] Address [address] [place] [id number] Care Team Providers Care Audio Technician Name Role Phone Unavailable Primary Care Provider [...] Years Used Date Smoking Tobacco: Never Assessed [facility] Utilities Answer Date Recorded In the past 12 months has [employer], gas, oil, or water company threatened to [...] any time in the past 12 m [facility], were you homeless or living in a longterm (including now)? Patient unable to answer 09/18/2024 [...] series) 2009 Pap Smear (Ages 21-65) 2011 HPV Vaccines (1 - 3-dose SCD M series) 2017 COVID-19 Vaccine (1 - 2023-2 5 season) 2024 Influenza Vaccine 06/01/2025 HIV Screening Completed 09/17/2024 Pneumococcal Vaccine: Pediat summer (0-5 Years) and [...] 09/18/2024 11:49 AM EST [facility] Comment: Results show no [...] PA-C LAB BLOOD ORDERABLES Final Resul t [facility] [address] [place] [address], from Last 3 Months or Most Recently Relevant to Health Maintenance Insurance [facility] Advance Directives * Full Code (Latest [...]
--- OUTSIDE RECORDS SUMMARY | 2025-07-07 14:51 | XMS_ITS | Clinical Summary ---
Author Organization [facility] Address [address] [place] [address] Care Team Providers Care Oil Rag Washer Name Role Phone Rupert Flores MD Primary [...] EVERY DAY 90 tablet 1 5 Active Active Problems Problem Noted Date Diagnosed Date Thrombocytopenia ([facility] V24) 04/09/2025 Assessment & Plan (04/09/2025 2:20 [...] by mouth 1 (one) time each day. pqercsaoiavf-dznl-bmaoafmg-folic acid (THERAPEUTIC-M) 27-0.4 mg tablet; Take 1 [...] biopsy 07/12/2024 Fatty liver 07/12/2024 Seizure disorder (CMS/HCC V24, CMS/HCC V28) 07/02 Assessment & Plan (04/09/2025 2:20 PM EDT): Referred to neurology, she will also contact with [facility] neurology to schedule an appointment. Continue Keppra 1000mg twice daily Orders: Ambulatory referral to Neurology; Future Glaucoma 02/03/2023 Subclinical hypothyroidism 02/03/2023 Insomnia 09/22/2021 Assessment & Plan (04/09/2025 2:20 PM EDT): Poorly controlled since she has been off the Seroquel. If the sodium level is back to normal this will be sent Alcohol use disorder 02/22/2019 Overview (09/05/2024): Detox 02/17 [place] Assessment & Plan (04/09/2025 2:20 PM EDT): [...] is advised that she can walk into [facility] today to establish care with a psychiatrist Continues to be followed by both a psychiatrist and a therapist. States that she may have an appointment at [facility] but she is unsure We will [...] Department Care Team Description 04/10/2025 Telephone Adult Medicine [address] [phone] Natalie Ortiz RN 04/09/2025 1:00 PM EDT Office Visit Adult Medicine [address] [phone] Rupert Flores MD Hospital discharge follow-up (Primary Dx); Hypokalemia; Hypomagnesemia; Hyponatremia; C. difficile diarrhea; Thrombocytopenia (CMS/HCC V24); Chronic migraine without aura without status migrainosus, not intractable; Anxiety and depression; Insomnia, unspecified type; Seizure disorder (CMS/HCC V24, CMS/HCC V28); Alcohol abuse; Elevated liver enzymes; Duodenitis without bleeding from Last 3 Months Immunizations Name Administration Dates Next Due DTP 10/22/1994, 2,04/04/1991,1990,1990 [id number]-[id number] (Pentacel) 2mo to less than 5yo 01/08/1992,04/04/1991,02/01/1991,1990 HPV, Quadrivalent 11/29/2019,05/17/2014,08/31/20 08 Hepatitis B (Ivxqnag-H-Esvij , Recombivax HB-Adult) 19yo and older 01/25/2003,08/10/2002 [...] Left PROCEDURE: HISTORICAL CATARACT REMOVAL ESOPHAGOGASTRODUODENOSCOPY PROCEDURE: DE ESOPHAGOGASTRODUODENOSCOPY TRANSORAL DIAGNOSTIC; COMMENT: Grade D esophagitis [...] Alive age 17 in good health Uncle juan Social History Tobacco Use Types Packs/Day Years [...] Info) Description 07/10/2025 2:00 PM EDT Consult [address] [place] [address] So Malcolm MD [address] [place] [phone] 07/10/2025 4:30 PM EDT Office Visit Adult Medicine [address] [phone] Smita Rabago PA [address] [place] [address] Health Maintenance Due Date Last Done Comments Hepatitis A Vaccines (1 of 2 - Risk 2-dose series) 2009 Pneumococcal Vaccine: Pediatrics (0 to 5 Years) and At-Risk Patients (6 to 49 Years) (1 of 2 - PCV) 2009 Cervical Cancer Screening: HPV 11/29/2024 11/29/2019 COVID-19 Vaccine ( season) 2025 Influenza Vaccine (#1) 2025 Social Influencers of [...] DIFFERENTIAL Routine 04/09/2025 2:07 PM EDT Thrombocytopenia ([facility] V24) CBC AND DIFFERENTIAL Routine 04/09/2025 2:07 PM EDT Thrombocytopenia ([facility] V24) COMPREHENSIVE METABOLIC PANEL Routine 04/09/2025 2:07 PM EDT Hypokalemia Hyponatremia MAGNESIUM Routine 04/09/2025 2:07 PM EDT Hypomagnesemia HM DEPRESSION SCREENING Routine 07/12/2024 LIPID PANEL Routine 07/12/2024 HM HPV Routine 11/29/2019 HEPATITIS C SCREENING Routine 03/06/2015 HIV SCREENING Routine 03/06/2015 from Last 3 Months or Most Recently Relevant to Health Maintenance Results * (ABNORMAL) CBC auto differential (04/09/2025 2:07 PM EDT) WBC 6.6 4.8 - 10.8 K/mcL LAB HEMETOLOGY METHOD 04/09/2025 5:02 PM EDT [facility] RBC 4.30 3.80 - 4.80 M/mcL LAB HEMETOLOGY METHOD 04/09/2025 5:02 PM EDT [facility] Hemoglobin 12.5 11.5 - 16.0 g/dL LAB HEMETOLOGY METHOD 04/09/2025 5:02 PM EDT [facility] Hematocrit 41.0 35.0 - 47.0 % LAB HEMETOLOGY METHOD 04/09/2025 5:02 PM [facility] MCV 96.5 79.0 - 98.0 FL LAB HEMETOLOGY METHOD 04/09/2025 5:02 PM [facility] MCH 29.4 27.0 - 32.0 pcg LAB HEMETOLOGY METHOD 04/09/2025 5:02 PM [facility] MCHC 30.5(L) 32.0 - 37.0 g/dL LAB HEMETOLOGY METHOD 04/09/2025 5:02 PM [facility] RDW 15.4(H) 11.0 - 15.0 % LAB HEMETOLOGY METHOD 04/09/2025 5:02 PM [facility] Platelets 618(H) 130 - 400 K/mcL LAB HEMETOLOGY METHOD 04/09/2025 5:02 PM [facility] MPV 9.5 7.0 - 11.0 FL LAB HEMETOLOGY METHOD 04/09/2025 5:02 PM [facility] NRBC 0.0 <1.0 % LAB HEMETOLOGY METHOD 04/09/2025 5:02 PM [facility] NRBC Absolute 0.00 <0.10 K/mcL LAB HEMETOLOGY METHOD 04/09/2025 5:02 PM [facility] Neutrophils Relative 51.6 % LAB HEMETOLOGY METHOD 04/09/2025 5:02 PM [facility] Lymphocytes Relative 34.2 % LAB HEMETOLOGY METHOD 04/09/2025 5:02 PM [facility] Monocytes Relative 8.2 % LAB HEMETOLOGY METHOD 04/09/2025 5:02 PM [facility] Eosinophils Relative 3.2 % LAB HEMETOLOGY METHOD 04/09/2025 5:02 PM [facility] Basophils Relative 2.3 % LAB HEMETOLOGY METHOD 04/09/2025 5:02 PM EDT [facility] Immature Granulocytes Relative 0.5 % LAB HEMETOLOGY METHOD 04/09/2025 5:02 PM EDT [facility] Neutrophils Absolute 3.39 1.50 - 7.00 K/mcL LAB HEMETOLOGY METHOD 04/09/2025 5:02 PM EDT [facility] Lymphocytes Absolute 2.25 1.00 - 5.00 K/mcL LAB HEMETOLOGY METHOD 04/09/2025 5:02 PM EDT [facility] Monocytes Absolute 0.54 0.20 - 1.00 K/mcL LAB HEMETOLOGY METHOD 04/09/2025 5:02 PM EDT [facility] Eosinophils Absolute 0.21 0.00 - 0.50 K/mcL LAB HEMETOLOGY METHOD 04/09/2025 5:02 PM EDT [facility] Basophils Absolute 0.15 0.00 - 0.20 K/mcL LAB HEMETOLOGY METHOD 04/09/2025 5:02 PM EDT [facility] Immature Granulocytes Absolute 0.03 0.00 - 0.03 K/mcL LAB HEMETOLOGY METHOD [facility]/09[facility]25 [facility] Blood Venous blood specimen / Unknown Venipuncture / Unknown 04/09/2025 2:07 PM EDT 04/09/2025 2:07 PM EDT us Rupert Flores MD LAB BLOOD ORDERA BLES Final Result [facility] [address] [place] [address], * (ABNORMAL) Magnesium (04/09/2025 2:07 PM EDT) Magnesium 1.7(L) 1.9 - 2.6 mg/dL LAB CHEMISTRY METHOD 04/09/2025 6:55 PM [facility] Blood Venous blood specimen / Unknown Venipuncture / Unknown 04/09/2025 2:07 PM EDT 04/09/2025 2:07 PM EDT Rupert Flores MD LAB BLOOD ORDERA BLES Final Result [facility] [address] [place] [address], [place] [phone] * Comprehensive metabolic panel (04/09/2025 2:07 PM EDT) Sodium 135 133 - 145 mmol/L LAB CHEMISTRY METHOD 04/09/2025 6:55 PM [facility] Potassium 4.1 3.5 - 5.5 mmol/L LAB CHEMISTRY METHOD 04/09/2025 6:55 PM [facility] Chloride 106 96 - 110 mmol/L LAB CHEMISTRY METHOD 04/09/2025 6:55 PM [facility] CO2 23 21 - 32 mmol/L LAB CHEMISTRY METHOD 04/09/2025 6:55 PM [facility] Anion Gap 6 3 - 11 LAB CHEMISTRY METHOD 04/09/2025 6:55 PM [facility] Glucose 73 70 - 100 mg/dL LAB CHEMISTRY METHOD 04/09/2025 6:55 PM [facility] BUN 5 5 - 25 mg/dL LAB CHEMISTRY METHOD 04/09/2025 6:55 PM [facility] Creatinine 0.65 0.50 - 1.10 mg/dL LAB CHEMISTRY METHOD 04/09/2025 6:55 PM [facility] eGFR 119 >=60 mL/min/1. 73m2 LAB CHEMISTRY METHOD 04/09/2025 6:55 PM [facility] Comment:Calculation based on the Chronic Kidney Disease Epidemiology Collaboration (CKD-EPI) equation refit without adjustment for race. BUN/Creatinine Ratio 7.7 LAB CHEMISTRY METHOD 04/09/2025 6:55 PM [facility] Calcium 9.5 8.5 - 10.5 mg/dL LAB CHEMISTRY METHOD 04/09/2025 6:55 PM [facility] AST (SGOT) 14 10 - 42 unit/L LAB CHEMISTRY METHOD 04/09/2025 6:55 PM [facility] ALT (SGPT) 25 10 - 60 unit/L LAB CHEMISTRY METHOD 04/09/2025 6:55 PM [facility] Alkaline Phosphatase 111 42 - 121 unit/L LAB CHEMISTRY METHOD 04/09/2025 6:55 PM [facility] Total Protein 7.2 6.0 - 8.0 g/dL LAB CHEMISTRY METHOD 04/09/2025 6:55 PM [facility] Albumin 3.8 3.2 - 5.0 g/dL LAB CHEMISTRY METHOD 04/09/2025 6:55 PM [facility] Total Bilirubin 0.2 0.0 - 1.4 mg/dL LAB CHEMISTRY METHOD 04/09/2025 6:55 PM [facility] Blood Venous blood specimen / Unknown Venipuncture / Unknown 04/09/2025 2:07 PM EDT 04/09/2025 2:07 PM EDT Rupert Flores MD LAB BLOOD ORDERA BLES Final Result [facility] [address] [place] [address], * Depression Screening (07/12/2024) [facility] Depression Screening abstracted Historical Provider HEALTH MAINTENANCE Final Result * Lipid panel (07/12/2024) [facility] LDL/HDL Ratio 2 0 - 4 Triglycerides 65 0 - 150 mg/dL Cholesterol 166 0 - 200 mg/dL HDL 72 >=40 mg/dL LDL Cholesterol 81 0 - 100 mg/dL Blood Venous blood specimen / Unknown [facility] Provider LAB BLOOD ORDERABLES Mel l Result * Cervical Cancer Screening: HPV (11/29/2019) [facility] Cervical Cancer Screening: HPV no interpretation , abstracted [facility] Provider HEALTH MAINTENANCE Final Result * HIV Screening (03/06/2015) [facility] HIV Screening abstracted Result [facility] Provider HEALTH MAINTENANCE Final Result * Hepatitis C Screening (03/06/2015) [facility] Hepatitis C Screening abstracted [facility] Provider HEALTH MAINTENANCE Final Result from Last 3 Months or Most Recently Relevant to Health Maintenance Insurance [facility] [place] [address] Care Teams Oil Rag Washer Relationship Specialty Start Date End Date Rupert Flores MD [address] [facility] [place], [place] PCP - General Internal Medicine 05/17/22
--- NOTE | 2025-07-07 14:53 | PC.NURSE ---
Addendum entered by Clare Andrade RN 07/07/25 14:55: Patient is a 34 years old female with past medical history significant for alcohol abuse, seizures/epilepsy on Keppra, depression/anxiety presents to the emergency department after she was attempting to self detox at home. States last drink was yesterday and usually drinks a sleeve per day. She believes she had a seizure this morning that seems to be generalized. Seizure precautions initiated. Prior to this event she was nauseous and vomiting. Placed on the environmental monitoring specialist and noted to be hypertensive and tachycardic. Treated for etoh withdrawal. Lungs essentially clear. Respirations even and non-labored. Abdomen flat, soft, non-tender with positive bowel sounds. Noted to be dry heaving. Positive pedal pulses with no edema. Original Note: Medical History Depressed affect Seizures Alcohol use disorder, severe, dependence Hypomagnesemia Acute hyponatremia Acute urinary retention Acute hypokalemia Epileptic seizure Alcohol withdrawal Seizure Acute dehydration Acute hypokalemia Acute alcohol intoxication Acute respiratory failure Acute hypokalemia Acute hyponatremia Alcohol withdrawal Status epilepticus Withdrawal seizures Depression Alcoholism
[2025-07-07 15:55] LABS: MANUAL DIFF FLAG NO
[2025-07-07 15:56] LABS: Hematocrit 46.6 % (37.0-47.0); Hemoglobin 16.1 g/dl (12.0-16.0); Imm Gran Abs Auto 0.06 X10*3/uL (0.00-0.03); Imm Gran Pct Auto 0.3 % (0.0-0.4); Lymphocytes Absolute Auto 1.4 X10*3/uL (1.2-4.9); Mean Corpuscular HGB Conc 34.5 g/dl (31.0-35.0); Mean Corpuscular Hemoglobin 28.3 pg (27.0-33.0); Mean Corpuscular Volume 81.9 fL (80.0-98.0); NRBC Abs Auto 0.000 X10*3/uL (0.0-0.012); NRBC Pct Auto 0.0 /100WBC (0.0-0.2); Platelet Count 816 X10*3/uL (160-400); Red Blood Count 5.69 X10*6/uL (4.20-5.50); White Blood Count 18.1 X10*3/uL (4.8-10.8)
[2025-07-07 16:19] LABS: Alanine Aminotransferase 37 U/L (0-31); Albumin Level 4.4 g/dL (3.5-5.0); Alkaline Phosphatase 139 U/L (39-117); Anion Gap 26 (12-20); Aspartate Amino Transferase 52 U/L (5-31); Blood Urea Nitrogen 9 mg/dL (9-16); Calcium 8.8 mg/dL (8.4-10.2); Carbon Dioxide 25 mmol/L (22-29); Chloride 94 mmol/L (96-108); Creatinine Clr Calc Pharmacy 86.4; Estimated Glomerular Filt Rate > 60; Magnesium 1.4 mg/dL (1.6-2.6); Potassium 3.1 mmol/L (3.3-5.1); Sodium 142 mmol/L (135-145); Total Protein 8.4 g/dL (6.5-8.0)
[2025-07-07] MEDS: Magnesium Sulfate/H2O 2 GM/50 ML PIGGYBACK IV (16:45)
[2025-07-07] MEDS: Potassium Chloride/H20 10 MEQ/100 ML PIGGYBACK 100 MEQ IV ×4 (16:46→21:27)
--- NOTE | 2025-07-07 17:16 | PM.IMHP ---
History of Present Illness Date of Service: 07/07/25 Attending physician on admission: Karen Galeano Chief Complaint: alcohol withdrawals 34-year-old female history of alcohol withdrawal with history of delirium tremens, status epilepticus, anxiety, depression comes in with concerns of alcohol w/ drawl. Patient reports she drinks 3 to 4 times a week, typically drinks 5 nips, last drink was yesterday , she says that has persistent nausea vomiting also did not eat well from last 2-3 days, she says that from week or so she has drinking excessive alcohol could not able to tell but says that multiple nips of Smirnoff(vodka) every day. She past medical history intubated for delirium tremens with status epileptics and she is afraid that this may happen again. She denies suicidal and homicidal ideation. Denies hallucinations. Tells me she feels like her heart is racing and she feels extremely anxious. Denies chest pain, shortness of breath, nausea, vomiting, vision changes, dizziness, weakness, headaches. labs ,imaging ,ekg reviewed : Sodium 142, potassium 3.1 Lactic acid 9.2 Has bicarb of 25, anion gap 26, LFTs seems similar UA and chest x-ray pending as well as VBG Review of Systems Review of Systems: as above. Says nausea vomitingx3 days , in between she wakes up and water also no cough or sob or chest pain Yes all other systems are reviewed and are negative [facility] Medical History Depressed affect Seizures Alcohol use disorder, severe, dependence Hypomagnesemia Acute hyponatremia Acute urinary retention Acute hypokalemia Epileptic seizure Alcohol withdrawal Seizure Acute dehydration Acute hypokalemia Acute alcohol intoxication Acute respiratory failure Acute hypokalemia Acute hyponatremia Alcohol withdrawal Status epilepticus Withdrawal seizures Depression Alcoholism Social History Household Members: Family Household Members Other:: Currently lives with parents Housing: House Do you presently have visiting nurse or other home services: No Unable to assess alcohol history related to: Unable to respond Alcohol intake: current Alcohol intake frequency: 3 or more drinks per day Alcohol type: hard liquor Comment: pt refused bed alarm Patient Tobacco Use Status: Tobacco use Unknown Tobacco use type: Smokeless Tobacco Smoked in Last 30 Days: Yes e-Cigarette/Vaping Use: Currently Using Substance Use Type: Crack/Cocaine Advance Directives: No Advance Directives Information Provided: Yes Nutrition Risks: No Nutritional Risk service: No Meds Allergies Allergy/AdvReac Type Severity Reaction Status Date / Time cat dander AdvReac Itching Verified 07/07/25 14:12 dog dander AdvReac Itching Verified 07/07/25 14:12 Iodinated Contrast Media AdvReac Hives Verified 07/07/25 14:12 (Contrast Dye) Active Medications: Current Medications Acetaminophen (Acetaminophen 325 Mg Tablet) 650 mg PO Q6H PRN PRN Reason: Pain, Mild 1-3,fever,headache Calcium Carbonate (Calcium Carbonate 750 Mg Tab.Chew) 750 mg PO Q4H PRN PRN Reason: Heartburn Sodium Chloride (Ns) 1,000 mls @ 999 mls/hr IV .Q1H1M ARTURO Stop: 07/07/25 17:30 Last Admin: 07/07/25 16:45 Dose: 999 mls/hr Magnesium Sulfate (Magnesium Sulfate/H2o) 2 gm in 50 mls @ 25 mls/hr IV ONCE ONE Stop: 07/07/25 18:17 Last Admin: 07/07/25 16:45 Dose: 25 mls/hr Sodium Chloride (Ns) 1,000 mls @ 999 mls/hr IV .Q1H1M ARTURO Stop: 07/07/25 17:30 Potassium Chloride (Potassium Chloride/H20) 10 meq in 100 mls @ 100 mls/hr IV Q1H [facility]UR[facility] Stop: 07/07/25 20:29 Last Admin: 07/07/25 16:46 Dose: 100 mls/hr Lactated Ringer's (Lr) 1,000 mls @ 125 mls/hr IVCONT .Q8H [facility]UR[facility] Labetalol HCl (Labetalol Hcl 100 Mg Tablet) 100 mg PO BID ARTURO; Protocol Magnesium Hydroxide (Milk Of Magnesia 30 Ml Oral.Susp) 30 ml PO DAILY PRN PRN Reason: Constipation Melatonin (Melatonin 3 Mg Tablet) 6 mg PO BEDTIME PRN PRN Reason: Insomnia Pharmacy Consult (Consult Rx Etoh Phenob Im/Po) 1 each MISCELLANE ONCE PRN; Protocol PRN Reason: Consult order Phenobarbital (Phenobarbital 30 Mg Tablet) 30 mg PO BID [facility] Stop: 07/09/25 21:01 Phenobarbital (Phenobarbital 15 Mg Tablet) 15 mg PO BID [facility] Stop: 07/11/25 21:01 Phenobarbital (Phenobarbital 15 Mg Tablet) 15 mg PO DAILY [facility] Stop: 07/13/25 09:01 Phenobarbital Sodium (Phenobarbital Sodium 130 Mg/Ml Vial Im Q3hx2) 200 mg IM 1800,2100 [facility] Stop: 07/07/25 21:01 Sodium Chloride (0.9 % Sodium Chloride Flush 3 Ml Syringe) 3 ml IVFLUSH QSHIFT [facility] Home Medications ?Medication ?Instructions ?Recorded ?Confirmed ?Last Taken ?Type omeprazole 20 mg capsule,delayed 20 mg PO DAILY@0630 03/28/25 07/08/25 07/01/25 History release magnesium oxide 400 mg (241.3 mg 400 mg PO BID 05/22/25 07/08/25 07/01/25 History magnesium) tablet multivitamin-iron 9 mg-folic acid 1 tab PO DAILY 05/22/25 07/08/25 07/01/25 History 400 mcg-calcium and minerals tablet (Therapeutic-M) potassium chloride 10 mEq 10 meq PO DAILY 05/22/25 07/08/25 07/01/25 History capsule,extended release buspirone 5 mg tablet 5 mg PO BID 07/07/25 07/08/25 07/01/25 History quetiapine 50 mg tablet 50 mg PO BEDTIME 07/07/25 07/08/25 07/01/25 History Physical Exam Vital Signs and Narrative: Vital Signs: Last Vital Signs Temp 98.4 F 07/07/25 16:17 Pulse 151 H 07/07/25 16:17 Resp 19 07/07/25 16:17 BP 137/98 H 07/07/25 16:17 Pulse Ox 98 07/07/25 16:17 O2 Del Method Room Air 07/07/25 16:17 BMI result Body Mass Index 17.5 Appearance: Alert.? Oriented X3.very anxious ,tremers . cvs: rrr, [id number] ,tachy res: clear to auscultation ,no rhonchii or wheezing abd: no rebound or guarding ,nt, bs present. ext pulses present , no cyanosis. neuro: axo3 , nonfocal. Results Labs 07/08/25 06:46 07/08/25 06:46 Labs: Laboratory Results - last 24 hr 07/07/25 07/07/25 15:50 16:32 MCV 81.9 MCH 28.3 MCHC 34.5 RDW 19.9 H Plt Count 816 H D MPV 8.1 L Immature Gran % (Auto) 0.3 Neut % (Auto) 86.2 H Lymph % (Auto) 7.8 L [place] % (Auto) 5.3 Eos % (Auto) 0.0 Baso % (Auto) 0.4 Lymph # (Auto) 1.4 [place] # (Auto) 1.0 Eos # (Auto) 0.0 Baso # (Auto) 0.1 Abs Immat Gran (auto) 0.06 H Absolute Neuts (auto) 15.6 H Absolute Nucleated RBC 0.000 Nucleated RBC % (auto) 0.0 Anion Gap 26 H Estim Creat Clear Calc 86.4 Estimated GFR > 60 Random Glucose 143 H Lactic Acid 9.2 H* Calcium 8.8 Magnesium 1.4 L* Total Bilirubin 0.4 AST 52 H ALT 37 H Alkaline Phosphatase 139 H Total Protein 8.4 H Albumin 4.4 Ethyl Alcohol 356 H* Assessment and Plan (1) Hypomagnesemia: Status: Acute Plan 34-year-old female with alcohol withdrawal: Alcohol withdrawal symptoms/alcohol abuse. CIWA moniter, Continue thiamine, multivitamins and folic acid. Phenobarbital protocol. Patient was advised to obtain from alcohol use. Social work/bilingual patient support caseworker consult. Anion gap but bicarb is normal, has acute lactic acidosis: Question starvation ketosis versus alcoholic ketoacidosis: Continue IV hydration, added VBG. Repeat labs in 4 hours. Leukocytosis/elevated H&H//platelets: ? Dehydration/hemoconcentration Will start IV fluid and repeat labs this evening. Tachycardia likely reactive to alcohol withdrawal Leukocytosis-possible hemo concentration versus reactive. Blood cultures sent by ID and started on IV antibiotics-currently workup including chest x-ray, UA pending Acute hypomagnesemia: Due to dehydration/GI losses. Nausea vomiting: Antiemetics, IV fluids, monitor closely Abnormal LFT secondary to alcohol abuse: Elevated AST and alk-phos (normal total bilirubbin and ALT). Check INR. Alcohol abstinence. Continue to monitor for now. Multiple electrolyte imbalances secondary to alcohol abuse and vomiting: Hyponatremia 132, hypokalemia. Electrolyte repleted, for hyponatremia workup ordered-hold IV fluid, fluid restriction 1.5 L, sodium tablets and urea decreased to qd Nephrology following Depression. Continue sertraline, topiramate and Seroquel DVT prophylaxis: Lovenox Code status: Full Patient will benefit from 2 midnight stay considering alcohol withdrawal symptoms, acute lactic acidosis and lytes imbalances treatment and management; patient will need close monitoring of her vital signs, electrolytes and antiseizures medication Quality Stroke Does the patient have a stroke diagnosis?: No VTE Prior VTE?: No VTE Risk Level:: Medical - moderate - high VTE Device Contraindication: N/A - Device Ordered VTE Drug Contraindication: N/A - Med Ordered
[2025-07-07 17:21] LABS: Appearance Urine Cloudy; Glucose Urine UA Negative (Negative); PH 5.5 (5.0-9.0); Specific Gravity - Urine 1.020 (1.005-1.025); UMIC TRIGGER UACC YES
[2025-07-07 17:34] LABS: Cannabinoid Screen Urine Not Detected (Not Detect)
[2025-07-07 17:41] LABS: Other Crystals Urine Present
[2025-07-07] MEDS: PHENobarbitaL sodium 130 MG/ML VIAL IM Q3Hx2 200 MG IM ×2 (17:56→21:26)
--- NOTE | 2025-07-07 18:01 | ECG_ITS ---
Test Reason : tachycardia Blood Pressure : */* mmHG Vent. Rate : 128 BPM Atrial Rate : 128 BPM P-R Int : 152 ms QRS Dur : 78 ms QT Int : 304 ms P-R-T Axes : 69 81 58 degrees QTcB Int : 443 ms Sinus tachycardia Otherwise normal ECG When compared with ECG of 22-May-2025 09:19, No significant change was found Referred By: Karen Galeano Electronically Signed By: CHING MCCARTHY MD
[2025-07-07 18:36] LABS: Reflex Lactate? Lactic Acid Added
--- NOTE | 2025-07-07 18:52 | PC.NURSE ---
Boyfirend: Riky Gaspar [phone]
[2025-07-07 19:19] LABS: VBG HCO3 21 mmol/L (22-26); VBG O2 % Saturation 100.0 %
[2025-07-07 19:28] LABS: Venous Blood Gas Refer to POC result
[2025-07-07 19:34] LABS: Anion Gap 23 (12-20); Blood Urea Nitrogen 7 mg/dL (9-16); Calcium 7.4 mg/dL (8.4-10.2); Carbon Dioxide 20 mmol/L (22-29); Chloride 102 mmol/L (96-108); Creatinine Clr Calc Pharmacy 108.3; Estimated Glomerular Filt Rate > 60; Potassium 4.1 mmol/L (3.3-5.1); Sodium 141 mmol/L (135-145)
[2025-07-07 19:39] LABS: ~Lactic Acid-LAB USE ONLY 9.1 mmol/L (0.5-2.0)
[2025-07-07 21:12] LABS: Reflex Lactate? 2 Y
[2025-07-07] MEDS: Lactated Ringers 1,000 ML 999 ML IV (21:25)
[2025-07-07] MEDS: Potassium Chloride ER 20 MEQ TAB.ER.PRT PO (21:26)
[2025-07-07] MEDS: Lactated Ringers 1,000 ML 125 ML IVCONT (22:04)
[2025-07-07 22:18] LABS: ~Lactic Acid-LAB USE ONLY 9.8 mmol/L (0.5-2.0)
[2025-07-07 22:31] LABS: Cancel Lactic Acid Canceled
[2025-07-08] VITALS (7 sets, daily range): BP systolic 108–142; BP diastolic 61–91; PULSE 78–117; RESP 16–20; TEMP 36.3–36.8; O2SAT 96–100
[2025-07-08] MEDS: Lactated Ringers 1,000 ML 125 ML IVCONT ×3 (04:11→17:38)
--- NOTE | 2025-07-08 06:34 | PC.NURSE ---
ciwa at this time 11 dr aidan solano made aware no new orders
[2025-07-08 07:05] LABS: Hematocrit 36.9 % (37.0-47.0); Hemoglobin 12.5 g/dl (12.0-16.0); Mean Corpuscular HGB Conc 33.9 g/dl (31.0-35.0); Mean Corpuscular Hemoglobin 28.4 pg (27.0-33.0); Mean Corpuscular Volume 83.9 fL (80.0-98.0); NRBC Abs Auto 0.000 X10*3/uL (0.0-0.012); NRBC Pct Auto 0.0 /100WBC (0.0-0.2); Platelet Count 335 X10*3/uL (160-400); Red Blood Count 4.40 X10*6/uL (4.20-5.50); White Blood Count 10.4 X10*3/uL (4.8-10.8)
[2025-07-08 07:47] LABS: Alanine Aminotransferase 36 U/L (0-31); Albumin Level 3.2 g/dL (3.5-5.0); Alkaline Phosphatase 118 U/L (39-117); Anion Gap 14 (12-20); Aspartate Amino Transferase 86 U/L (5-31); Blood Urea Nitrogen 6 mg/dL (9-16); Calcium 7.6 mg/dL (8.4-10.2); Carbon Dioxide 25 mmol/L (22-29); Chloride 98 mmol/L (96-108); Creatinine Clr Calc Pharmacy 126.7; Estimated Glomerular Filt Rate > 60; Magnesium 1.4 mg/dL (1.6-2.6); Potassium 3.6 mmol/L (3.3-5.1); Sodium 133 mmol/L (135-145); Total Protein 6.4 g/dL (6.5-8.0)
--- NOTE | 2025-07-08 07:59 | PHA.MEDREC ---
Pharmacy Consult ? Medication Reconciliation Pharmacy has completed the medication reconciliation. Spoke with patient at bedside, she confirmed home meds verbally, matching claims and med record.
[2025-07-08 08:22] LABS: Cancel Lactic Acid Canceled
[2025-07-08] MEDS: levETIRAcetam in NaCl (iso-os) 1,000 MG/100 ML PIGGYBACK 400 MG IV ×2 (09:02→19:49)
[2025-07-08] MEDS: Magnesium Sulfate/H2O 2 GM/50 ML PIGGYBACK IV (09:02)
--- NOTE | 2025-07-08 09:08 | HO.PM.IMPN ---
Subjective Subjective Date of Service: 07/08/25 Interval History: alcohol withdrawals Review of Systems Still anxious Has nausea Review of Systems: Yes all other systems are reviewed and are negative Physical Exam Exam: Exam: Appearance: Alert.? Oriented X3.very anxious ,tremers . cvs: rrr, [id number] ,tachy res: clear to auscultation ,no rhonchii or wheezing abd: no rebound or guarding ,nt, bs present. ext pulses present , no cyanosis. neuro: axo3 , nonfocal. Vital Signs: Vital Signs: Last Vital Signs Temp 98.8 F 07/07/25 23:57 Pulse 117 H 07/08/25 08:18 Resp 20 07/08/25 08:18 BP 142/91 H 07/08/25 08:18 Pulse Ox 100 07/08/25 08:18 O2 Del Method Room Air 07/08/25 08:18 BMI result Body Mass Index 17.5 Objective Data Active Medications Acetaminophen (Acetaminophen 325 Mg Tablet) 650 mg PO Q6H PRN PRN Reason: Pain, Mild 1-3,fever,headache Calcium Carbonate (Calcium Carbonate 750 Mg Tab.Chew) 750 mg PO Q4H PRN PRN Reason: Heartburn Diazepam (Diazepam 10 Mg/2 Ml Cartridge) 2.5 mg IVPUSH Q4H PRN PRN Reason: Alcohol Withdrawal Enoxaparin Sodium (Enoxaparin Sodium 40 Mg/0.4 Ml Syringe) 40 mg SUBCUT Q24H [facility] Last Admin: 07/07/25 17:56 Dose: 40 mg Documented By: FRANCESCA Folic Acid (Folic Acid 1 Mg Tablet) 1 mg PO DAILY [facility] Last Admin: 07/08/25 08:11 Dose: 1 mg Documented By: DARREL Hydroxyzine HCl (Hydroxyzine Hcl 25 Mg Tablet) 25 mg PO Q6H PRN PRN Reason: anxiety/restlessness Lactated Ringer's (Lr) 1,000 mls @ 125 mls/hr IVCONT .Q8H [facility] Last Admin: 07/08/25 04:11 Dose: 125 mls/hr Documented By: SHANTI Levetiracetam (Keppra) 1,000 mg in 100 mls @ 400 mls/hr IV Q12H [facility] Last Admin: 07/08/25 09:02 Dose: 400 mls/hr Documented By: DARREL Magnesium Sulfate (Magnesium Sulfate/H2o) 2 gm in 50 mls @ 25 mls/hr IV ONCE ONE Stop: 07/08/25 10:13 Last Admin: 07/08/25 09:02 Dose: 25 mls/hr Documented By: DARREL Labetalol HCl (Labetalol Hcl 100 Mg Tablet) 100 mg PO BID [facility]; Protocol Last Admin: 07/08/25 08:13 Dose: 100 mg Documented By: DARREL Magnesium Hydroxide (Milk Of Magnesia 30 Ml Oral.Susp) 30 ml PO DAILY PRN PRN Reason: Constipation Magnesium Oxide (Magnesium Oxide 400 Mg Tablet) 400 mg PO BIDPC [facility] Last Admin: 07/08/25 08:11 Dose: 400 mg Documented By: DARREL Melatonin (Melatonin 3 Mg Tablet) 6 mg PO BEDTIME PRN PRN Reason: Insomnia Pharmacy Consult (Consult Rx Etoh Phenob Im/Po) 1 each MISCELLANE ONCE PRN; Protocol PRN Reason: Consult order Phenobarbital (Phenobarbital 30 Mg Tablet) 30 mg PO BID [facility] Stop: 07/09/25 21:01 Last Admin: 07/08/25 08:11 Dose: 30 mg Documented By: DARREL Phenobarbital (Phenobarbital 15 Mg Tablet) 15 mg PO BID [facility] Stop: 07/11/25 21:01 Phenobarbital (Phenobarbital 15 Mg Tablet) 15 mg PO DAILY [facility] Stop: 07/13/25 09:01 Sodium Chloride (0.9 % Sodium Chloride Flush 3 Ml Syringe) 3 ml IVFLUSH QSHIFT [facility] Last Admin: 07/08/25 08:13 Dose: Not Given Documented By: DARREL Non-Admin Reason: IV Running Thiamine HCl (Thiamine Hcl 100 Mg Tablet) 100 mg PO DAILY [facility] Last Admin: 07/08/25 08:11 Dose: 100 mg Documented By: DARREL Labs 07/08/25 06:46 07/08/25 06:46 Labs: Laboratory Results - last 24 hr 07/07/25 07/07/25 07/07/25 15:50 16:32 17:12 MCV 81.9 MCH 28.3 MCHC 34.5 RDW 19.9 H Plt Count 816 H D MPV 8.1 L Immature Gran % (Auto) 0.3 Neut % (Auto) 86.2 H Lymph % (Auto) 7.8 L [place] % (Auto) 5.3 Eos % (Auto) 0.0 Baso % (Auto) 0.4 Lymph # (Auto) 1.4 [place] # (Auto) 1.0 Eos # (Auto) 0.0 Baso # (Auto) 0.1 Abs Immat Gran (auto) 0.06 H Absolute Neuts (auto) 15.6 H Absolute Nucleated RBC 0.000 Nucleated RBC % (auto) 0.0 VBG pH VBG pCO2 VBG pO2 VBG HCO3 VBG O2 Saturation VBG Base Excess Anion Gap 26 H Estim Creat Clear Calc 86.4 Estimated GFR > 60 Random Glucose 143 H Lactic Acid 9.2 H* Lactic Acid F/U @ 2Hr Lactic Acid F/U @ 4Hr Calcium 8.8 Magnesium 1.4 L* Total Bilirubin 0.4 Direct Bilirubin AST 52 H ALT 37 H Alkaline Phosphatase 139 H Total Protein 8.4 H Albumin 4.4 Urine Color Dark Yellow Urine Appearance Cloudy Urine pH 5.5 Ur Specific [place] 1.020 Urine Protein 300 (3+) H Urine Glucose (UA) Negative Urine Ketones Trace Urine Blood Trace H Urine Nitrite Negative Ur Leukocyte Esterase Negative Urine RBC 0-2 Urine WBC 0-5 Ur Squamous Epith Cells 6-10 Other Crystals Present Urine Bacteria 1+ Hyaline Casts 3-5 Urine Opiates Screen Not Detected Ur Buprenorphine Scrn Not Detected Ur Oxycodone Screen Not Detected Urine Methadone Screen Not Detected Urine Fentanyl Screen Not Detected Ur Barbiturates Screen Not Detected Ur Phencyclidine Scrn Not Detected Ur Amphetamines Screen Not Detected U Benzodiazepines Scrn Not Detected Urine Cocaine Screen POSITIVE H U Marijuana (THC) Screen Not Detected Ethyl Alcohol 356 H* 07/07/25 07/07/25 07/07/25 19:10 19:14 21:58 MCV MCH MCHC RDW Plt Count MPV Immature Gran % (Auto) Neut % (Auto) Lymph % (Auto) [place] % (Auto) Eos % (Auto) Baso % (Auto) Lymph # (Auto) [place] # (Auto) Eos # (Auto) Baso # (Auto) Abs Immat Gran (auto) Absolute Neuts (auto) Absolute Nucleated RBC Nucleated RBC % (auto) VBG pH 7.42 VBG pCO2 33 VBG pO2 165 VBG HCO3 21 L VBG O2 Saturation 100.0 VBG Base Excess -1.7 Anion Gap 23 H Estim Creat Clear Calc 108.3 Estimated GFR > 60 Random Glucose 122 H Lactic Acid Lactic Acid F/U @ 2Hr 9.1 H* Lactic Acid F/U @ 4Hr 9.8 H* Calcium 7.4 L D Magnesium Total Bilirubin Direct Bilirubin AST ALT Alkaline Phosphatase Total Protein Albumin Urine Color Urine Appearance Urine pH Ur Specific [place] Urine Protein Urine Glucose (UA) Urine Ketones Urine Blood Urine Nitrite Ur Leukocyte Esterase Urine RBC Urine WBC Ur Squamous Epith Cells Other Crystals Urine Bacteria Hyaline Casts Urine Opiates Screen Ur Buprenorphine Scrn Ur Oxycodone Screen Urine Methadone Screen Urine Fentanyl Screen Ur Barbiturates Screen Ur Phencyclidine Scrn Ur Amphetamines Screen U Benzodiazepines Scrn Urine Cocaine Screen U Marijuana (THC) Screen Ethyl Alcohol 07/08/25 06:46 MCV 83.9 MCH 28.4 MCHC 33.9 RDW 19.4 H Plt Count 335 D MPV 9.5 Immature Gran % (Auto) Neut % (Auto) Lymph % (Auto) [place] % (Auto) Eos % (Auto) Baso % (Auto) Lymph # (Auto) [place] # (Auto) Eos # (Auto) Baso # (Auto) Abs Immat Gran (auto) Absolute Neuts (auto) Absolute Nucleated RBC 0.000 Nucleated RBC % (auto) 0.0 VBG pH VBG pCO2 VBG pO2 VBG HCO3 VBG O2 Saturation VBG Base Excess Anion Gap 14 Estim Creat Clear Calc 126.7 Estimated GFR > 60 Random Glucose 89 Lactic Acid 4.1 H* Lactic Acid F/U @ 2Hr Lactic Acid F/U @ 4Hr Calcium 7.6 L Magnesium 1.4 L* Total Bilirubin 0.8 Direct Bilirubin 0.3 AST 86 H ALT 36 H Alkaline Phosphatase 118 H Total Protein 6.4 L Albumin 3.2 L Urine Color Urine Appearance Urine pH Ur Specific [place] Urine Protein Urine Glucose (UA) Urine Ketones Urine Blood Urine Nitrite Ur Leukocyte Esterase Urine RBC Urine WBC Ur Squamous Epith Cells Other Crystals Urine Bacteria Hyaline Casts Urine Opiates Screen Ur Buprenorphine Scrn Ur Oxycodone Screen Urine Methadone Screen Urine Fentanyl Screen Ur Barbiturates Screen Ur Phencyclidine Scrn Ur Amphetamines Screen U Benzodiazepines Scrn Urine Cocaine Screen U Marijuana (THC) Screen Ethyl Alcohol Assessment and Plan (1) Alcohol abuse with withdrawal: Status: Acute Plan 34-year-old female with alcohol withdrawal: Alcohol withdrawal symptoms/alcohol abuse. CIWA moniter, Continue thiamine, multivitamins and folic acid. Phenobarbital protocol. Patient was advised to obtain from alcohol use. Social work/comp field case manager consult. Anion gap but bicarb is normal, has acute lactic acidosis: Question starvation ketosis versus alcoholic ketoacidosis: Improved with hydration. Leukocytosis/elevated H&H//platelets: improved. Tachycardia likely reactive to alcohol withdrawal-improved Leukocytosis-possible hemo concentration versus reactive. Blood cultures sent by ID and started on IV antibiotics-currently workup including chest x-ray, UA -seems negative, blood culture pending. We will continue antibiotics until blood culture come back. Acute hypomagnesemia: Due to dehydration/GI losses. IV magnesium added. Nausea vomiting: Antiemetics, IV fluids, monitor closely eating better clears this afternoon , no swlloeing issues. Abnormal LFT secondary to alcohol abuse: Elevated AST and alk-phos (normal total bilirubbin and ALT). Check INR. Alcohol abstinence. Continue to monitor for now. Multiple electrolyte imbalances secondary to alcohol abuse and vomiting: Hyponatremia 132(likely due to ivf/dec po inatke ) Depression. Continue sertraline, topiramate and Seroquel DVT prophylaxis: Lovenox Code status: Full ongoing need for stay: alcohol withdrawal symptoms, acute lactic acidosis and lytes imbalances treatment and management; patient will need close monitoring of her vital signs, electrolytes and antiseizures medication Quality Stroke Does the patient have a stroke diagnosis?: No VTE Prior VTE?: No VTE Risk Level:: Medical - moderate - high VTE Device Contraindication: N/A - Device Ordered VTE Drug Contraindication: N/A - Med Ordered
[2025-07-08] MEDS: Sodium Chloride Tab 1 GM TABLET PO ×3 (12:12→19:49)
--- NOTE | 2025-07-08 15:42 | MHC.CM.PN ---
PATIENT LIVES AT HOME W/ PARENTS. FUNCTIONALLY INDEPENDENT. DENIES USE OF DME OR SERVICES. PCP DR SHI @ [facility] NO HCP. CM PROVIDED EDUCATION AND OFFERED ASSISTANCE. PATIENT DECLINED. DP: HOME SELF CARE VS RECOVERY TEAM INTERVENTION. FAMILY TRANSPORT. CM WILL CONTINUE TO FOLLOW.
[2025-07-08] MEDS: Milk of Magnesia 30 ML ORAL.SUSP PO (17:40)
[2025-07-09] VITALS: BP 99/62; PULSE 63; RESP 18; TEMP 36.6; O2SAT 97
[2025-07-09] MEDS: Lactated Ringers 1,000 ML 125 ML IVCONT ×2 (02:08→11:23)
[2025-07-09] MEDS: 0.9 % Sodium Chloride Flush 3 ML SYRINGE IVFLUSH (02:09)
[2025-07-09 03:22] VITALS: BP 100/66; PULSE 63; RESP 18; TEMP 36.6; O2SAT 98
[2025-07-09 08:00] VITALS: BP 104/67; PULSE 75; RESP 18; TEMP 36.8; O2SAT 97
[2025-07-09 08:30] LABS: Alanine Aminotransferase 36 U/L (0-31); Albumin Level 2.8 g/dL (3.5-5.0); Alkaline Phosphatase 116 U/L (39-117); Anion Gap 9 (12-20); Aspartate Amino Transferase 80 U/L (5-31); Blood Urea Nitrogen < 3 mg/dL (9-16); Calcium 8.0 mg/dL (8.4-10.2); Carbon Dioxide 29 mmol/L (22-29); Chloride 103 mmol/L (96-108); Creatinine Clr Calc Pharmacy 129.5; Estimated Glomerular Filt Rate > 60; Magnesium 1.5 mg/dL (1.6-2.6); Potassium 3.8 mmol/L (3.3-5.1); Sodium 137 mmol/L (135-145); Total Protein 5.7 g/dL (6.5-8.0)
[2025-07-09] MEDS: Sodium Chloride Tab 1 GM TABLET PO ×2 (09:18→15:34)
[2025-07-09] MEDS: Potassium Chloride ER 10 MEQ TABLET.ER PO (09:18)
[2025-07-09] MEDS: levETIRAcetam in NaCl (iso-os) 1,000 MG/100 ML PIGGYBACK 400 MG IV (09:34)
[2025-07-09 11:46] VITALS: BMI 17.5
[2025-07-09 12:00] VITALS: BP 111/67; PULSE 76; RESP 18; TEMP 36.7; O2SAT 97
--- NOTE | 2025-07-09 13:05 | MHC.RECOVRN ---
Pt declined to converse with this continuity writer at this time. Stated not right now, I'll probably be here for a couple more days . Will attempt to reengage with pt at a later time.
[2025-07-09 15:35] VITALS: BP 113/72; PULSE 75; RESP 16; TEMP 36.8; O2SAT 99
--- NOTE | 2025-07-09 15:36 | P.PNIM_ITS ---
Subjective Subjective Date of Service: 07/09/25 Interval History: alcohol withdrawals Review of Systems anxious , has some nausea still does not feels improving Physical Exam 2 Exam: Exam: Appearance: Alert.? Oriented X3.very anxious ,tremers . cvs: rrr, [id number] . res: clear to auscultation ,no rhonchii or wheezing abd: no rebound or guarding ,nt, bs present. ext pulses present , no cyanosis. neuro: axo3 , nonfocal. Vital Signs: Vital Signs: Last Vital Signs Temp 98.2 F 07/09/25 15:35 Pulse 75 07/09/25 15:35 Resp 16 07/09/25 15:35 BP 113/72 07/09/25 15:35 Pulse Ox 99 07/09/25 15:35 O2 Del Method Room Air 07/09/25 15:35 BMI result Body Mass Index 17.5 Objective Data Active Medications Acetaminophen (Acetaminophen 325 Mg Tablet) 650 mg PO Q6H PRN PRN Reason: Pain, Mild 1-3,fever,headache Buspirone HCl (Buspirone Hcl 5 Mg Tablet) 5 mg PO BID [facility] Last Admin: 07/09/25 09:19 Dose: 5 mg Documented By: LISSET Calcium Carbonate (Calcium Carbonate 750 Mg Tab.Chew) 750 mg PO Q4H PRN PRN Reason: Heartburn Ceftriaxone Sodium (Ceftriaxone Sodium 1 Gm Vial) 1 gm IVPUSH Q24H [facility] Last Admin: 07/08/25 17:32 Dose: 1 gm Documented By: CLEOPATRA Diazepam (Diazepam 10 Mg/2 Ml Cartridge) 2.5 mg IVPUSH Q4H PRN PRN Reason: Alcohol Withdrawal Duloxetine HCl (Duloxetine Hcl 20 Mg Capsule.Dr) 20 mg PO DAILY [facility] Last Admin: 07/09/25 09:21 Dose: 20 mg Documented By: LISSET Enoxaparin Sodium (Enoxaparin Sodium 40 Mg/0.4 Ml Syringe) 40 mg SUBCUT Q24H [facility] Last Admin: 07/08/25 17:38 Dose: 40 mg Documented By: CLEOPATRA Folic Acid (Folic Acid 1 Mg Tablet) 1 mg PO DAILY [facility] Last Admin: 07/09/25 09:19 Dose: 1 mg Documented By: LISSET Gabapentin (Gabapentin 100 Mg Capsule) 200 mg PO TID [facility] Last Admin: 07/09/25 09:15 Dose: 200 mg Documented By: LISSET Hydroxyzine HCl (Hydroxyzine Hcl 25 Mg Tablet) 25 mg PO Q6H PRN PRN Reason: anxiety/restlessness Last Admin: 07/08/25 19:49 Dose: 25 mg Documented By: SAEID Lactated Ringer's (Lr) 1,000 mls @ 125 mls/hr IVCONT .Q8H [facility] Last Admin: 07/09/25 11:23 Dose: 125 mls/hr Documented By: LISSET Levetiracetam (Keppra) 1,000 mg in 100 mls @ 400 mls/hr IV Q12H [facility] Last Infusion: 07/09/25 09:49 Dose: Infused Documented By: LISSET Labetalol HCl (Labetalol Hcl 100 Mg Tablet) 100 mg PO BID [facility]; Protocol Last Admin: 07/09/25 09:16 Dose: 100 mg Documented By: LISSET Magnesium Hydroxide (Milk Of Magnesia 30 Ml Oral.Susp) 30 ml PO DAILY PRN PRN Reason: Constipation Last Admin: 07/08/25 17:40 Dose: 30 ml Documented By: CLEOPATRA Magnesium Oxide (Magnesium Oxide 400 Mg Tablet) 400 mg PO BIDPC [facility] Last Admin: 07/09/25 09:19 Dose: 400 mg Documented By: LISSET Melatonin (Melatonin 3 Mg Tablet) 6 mg PO BEDTIME PRN PRN Reason: Insomnia Multivitamins/Vitamin C (Multivitamin Tablet) 1 tab PO DAILY [facility] Last Admin: 07/09/25 09:17 Dose: 1 tab Documented By: LISSET Naltrexone HCl (Naltrexone Hcl 50 Mg Tablet) 50 mg PO DAILY [facility] Last Admin: 07/09/25 09:18 Dose: 50 mg Documented By: LISSET Omeprazole (Omeprazole 20 Mg Capsule.Dr) 20 mg PO DAILY@0630 [facility] Last Admin: 07/09/25 06:33 Dose: 20 mg Documented By: SAEID Pharmacy Consult (Consult Rx Etoh Phenob Im/Po) 1 each MISCELLANE ONCE PRN; Protocol PRN Reason: Consult order Phenobarbital (Phenobarbital 30 Mg Tablet) 30 mg PO BID [facility] Stop: 07/09/25 21:01 Last Admin: 07/09/25 09:18 Dose: 30 mg Documented By: LISSET Phenobarbital (Phenobarbital 15 Mg Tablet) 15 mg PO BID [facility] Stop: 07/11/25 21:01 Phenobarbital (Phenobarbital 15 Mg Tablet) 15 mg PO DAILY [facility] Stop: 07/13/25 09:01 Potassium Chloride (Potassium Chloride Er 10 Meq Tablet.Er) 10 meq PO DAILY [facility] Last Admin: 07/09/25 09:18 Dose: 10 meq Documented By: LISSET Quetiapine Fumarate (Quetiapine Fumarate 50 Mg Tablet) 50 mg PO BEDTIME [facility] Last Admin: 07/08/25 19:49 Dose: 50 mg Documented By: SAEID Sodium Chloride (0.9 % Sodium Chloride Flush 3 Ml Syringe) 3 ml IVFLUSH QSHIFT [facility] Last Admin: 07/09/25 09:13 Dose: Not Given Documented By: LISSET Non-Admin Reason: IV Running Sodium Chloride (Sodium Chloride Tab 1 Gm Tablet) 1 gm PO TID [facility] Last Admin: 07/09/25 09:18 Dose: 1 gm Documented By: LISSET Thiamine HCl (Thiamine Hcl 100 Mg Tablet) 100 mg PO DAILY [facility] Last Admin: 07/09/25 09:15 Dose: 100 mg Documented By: LISSET Labs 07/08/25 06:46 07/09/25 07:51 Labs: Laboratory Results - last 24 hr 07/09/25 07:51 Hold Purple Top SEE NOTE Anion Gap 9 L Estim Creat Clear Calc 129.5 Estimated GFR > 60 Random Glucose 87 Calcium 8.0 L Magnesium 1.5 L Total Bilirubin 0.7 AST 80 H ALT 36 H Alkaline Phosphatase 116 Total Protein 5.7 L Albumin 2.8 L Microbiology Microbiology Results: Microbiology 07/07/25 17:27 Blood Culture - Preliminary Blood - Venous No growth after 24 hours. 07/07/25 16:32 Blood Culture - Preliminary Blood - Venous No growth after 24 hours. Assessment and Plan (1) Alcohol abuse with withdrawal: Status: Acute Plan 34-year-old female with alcohol withdrawal: Alcohol withdrawal symptoms/alcohol abuse. CIWA:2, Continue thiamine, multivitamins and folic acid. Phenobarbital protocol. Patient was advised to obtain from alcohol use. Social work/comp field case manager consult. Anion gap but bicarb is normal, has acute lactic acidosis: Question starvation ketosis versus alcoholic ketoacidosis: Improved with hydration. Leukocytosis/elevated H&H/platelets: improved. Tachycardia likely reactive to alcohol withdrawal-improved. Leukocytosis-possible hemo concentration versus reactive. Blood cultures sent by ID and started on IV antibiotics-currently workup including chest x-ray, UA -seems negative, blood culture pending. We will continue antibiotics until blood culture come back. Acute hypomagnesemia: Due to dehydration/GI losses. IV magnesium added. Nausea vomiting: Antiemetics, IV fluids, monitor closely eating better clears , encouraged for more p.o. intake , no swlloeing issues. Abnormal LFT secondary to alcohol abuse: Elevated AST and alk-phos (normal total bilirubbin and ALT). Check INR. Alcohol abstinence. Continue to monitor for now. Multiple electrolyte imbalances secondary to alcohol abuse and vomiting: Hyponatremia 132(likely due to ivf/dec po inatke ) Depression. Continue sertraline, topiramate and Seroquel DVT prophylaxis: Lovenox . Code status: Full ongoing need for stay: alcohol withdrawal symptoms, acute lactic acidosis and lytes imbalances treatment and management; patient will need close monitoring of her vital signs, electrolytes and antiseizures medication. Quality Stroke Does the patient have a stroke diagnosis?: No VTE Prior VTE?: No VTE Risk Level:: Medical - moderate - high VTE Device Contraindication: N/A - Device Ordered VTE Drug Contraindication: N/A - Med Ordered
--- NOTE | 2025-07-09 16:04 | MHC.CM.PN ---
EMR reviewed and per MD rounds, pt is not medically cleared for discharge due to management of ETOH withdrawal.
--- NOTE | 2025-07-09 17:58 | PM.DS ---
DS: Providers Provider Date of Service: 07/09/25 Date of admission: 07/07/25 16:52 Date of discharge: 07/09/25 Primary care physician: Rupert Flores MD Consults: 07/07/25 16:52 Addiction Medicine Provider Routine Consulting Provider: Addiction Covering Reason for consultation: etoh Has provider been notified: No Attending physician on discharge: Karen Galeano Discharging clinician: Karen Galeano DS: Diagnosis Discharge Diagnosis (1) Alcohol abuse with withdrawal: Status: Acute DS: Summary Hospital Course Hospital Course: HPI:34-year-old female history of alcohol withdrawal with history of delirium tremens, status epilepticus, anxiety, depression comes in with concerns of alcohol w/ drawl. Patient reports she drinks 3 to 4 times a week, typically drinks 5 nips, last drink was yesterday , she says that has persistent nausea vomiting also did not eat well from last 2-3 days, she says that from week or so she has drinking excessive alcohol could not able to tell but says that multiple nips of Smirnoff(vodka) every day. She past medical history intubated for delirium tremens with status epileptics and she is afraid that this may happen again. She denies suicidal and homicidal ideation. Denies hallucinations. Tells me she feels like her heart is racing and she feels extremely anxious. Denies chest pain, shortness of breath, nausea, vomiting, vision changes, dizziness, weakness, headaches. labs ,imaging ,ekg reviewed : Sodium 142, potassium 3.1 Lactic acid 9.2 Has bicarb of 25, anion gap 26, LFTs seems similar UA and chest x-ray pending as well as VBG. Hospital course: Patient admitted for all alcohol withdrawal-started on phenobarb protocol seems to be improved. Wants to go home. Nausea vomiting likely related to possible alcoholic gastritis-improved with hydration and PPI. Acute lactic acidosis-likely related to alcoholic ketoacidosis /starvation ketosis: Improved significantly with hydration. Hypomagnesemia: Magnesium replacement ordered. Hyponatremia likely related to fluid use: Improved. Patient had initial leukocytosis, says some urinary frequency also-was improving with the ceftriaxone, urine cultures still pending, blood culture negative at 24 hours-patient is eager to go home so we will give p.o. Ceftin 250 b.i.d. for 5 days, will inform with urine culture comes back-if needed to change any antibiotics management. Patient says that she ran out of Keppra so Keppra prescription is sent, also gabapentin 1 week supply given. Rest of the refill patient will discuss with PCP outpatient. Elevated LFT: Likely related to alcohol use, improving, further workup outpatient . Monitor electrolytes outpatient. plan: Monitor BMP. Keppra prescription sent, also gabapentin and magnesium limited supply also sent. Complete Ceftin 250 b.i.d. for 5 days. Strongly advised to abstain from alcohol Further management outpatient with the PCP. Above management discussed with the patient detail length she understand and in agreement with the above plan, time spent 45 minute. All questions answered. Staff was present during conversation. Time Attestation Total time managing care of this patient today: 45 mintues. Discharge Coordination Time (in mins): 45 min Quality: Safe Use of Opioids Does Pt have an Active Cancer Diagnosis on the Problem List?: No Quality: Stroke Does the patient have a stroke diagnosis?: No Physical Exam Exam: Exam: Appearance: Alert.? Oriented X3. cvs: rrr, [id number] . res: clear to auscultation ,no rhonchii or wheezing abd: no rebound or guarding ,nt, bs present. ext pulses present , no cyanosis. neuro: axo3 , nonfocal. Vital Signs: Vital Signs: Last Vital Signs Temp 98.2 F 07/09/25 15:35 Pulse 75 07/09/25 15:35 Resp 16 07/09/25 15:35 BP 113/72 07/09/25 15:35 Pulse Ox 99 07/09/25 15:35 O2 Del Method Room Air 07/09/25 15:35 BMI result Body Mass Index 17.5 DS: Data Data Completed and Pending Completed studies during hospitalization [Text1]: Procedures Detoxification Services for Substance Abuse Treatment (05/22/25) Insertion of Endotracheal Airway into Trachea, Via Natural or Artificial Opening (06/18/24) Insertion of Infusion Device into Superior Vena Cava, Percutaneous Approach (06/18/24) Respiratory Ventilation, 24-96 Consecutive Hours (06/18/24) Ultrasonography of Superior Vena Cava, Guidance (06/18/24) Labs on day of discharge: Laboratory Results - last 24 hr 07/09/25 07:51 Hold Purple Top SEE NOTE Sodium 137 Potassium 3.8 Chloride 103 Carbon Dioxide 29 Anion Gap 9 L BUN < 3 L Creatinine 0.46 L Estim Creat Clear Calc 129.5 Estimated GFR > 60 Random Glucose 87 Calcium 8.0 L Magnesium 1.5 L Total Bilirubin 0.7 AST 80 H ALT 36 H Alkaline Phosphatase 116 Total Protein 5.7 L Albumin 2.8 L Preliminary micro results at discharge 07/07/25 17:27 Blood Culture - Preliminary Blood - Venous No growth after 24 hours. 07/07/25 16:32 Blood Culture - Preliminary Blood - Venous No growth after 24 hours. Imaging Chest x-ray: My impression: cxr:1. No acute findings Discharge Plan Discharge Anticipated Discharge Date/Time: 07/09/25 17:48 Patient Disposition: Home, Self-Care Discharge Diagnosis: Alcohol withdrawal, question of UTI, nausea vomiting, elevated LFTs. Referrals: Rupert Flores MD [Primary Care Provider, [facility]] - 1 Week Discharge Medications: New cefuroxime axetil 250 mg Tablet 250 mg PO Q12H Qty: 10 0RF Continued folic acid 1 mg Tablet 1 mg PO DAILY Qty: 30 0RF thiamine mononitrate (vit B1) 100 mg Tablet 100 mg PO DAILY Qty: 30 0RF omeprazole 20 mg capsule,delayed release(DR/EC) 20 mg PO DAILY@0630 naltrexone 50 mg Tablet 50 mg PO DAILY Qty: 30 0RF sodium chloride 1,000 mg Tablet,Soluble 1,000 mg PO TID Qty: 30 0RF Therapeutic-M 9 mg iron-400 mcg tablet 1 tab PO DAILY potassium chloride 10 mEq capsule, extended release 10 meq PO DAILY duloxetine 20 mg Capsule,Delayed Release(Dr/Ec) 20 mg PO DAILY Qty: 30 0RF buspirone 5 mg tablet 5 mg PO BID quetiapine 50 mg tablet 50 mg PO BEDTIME gabapentin 100 mg Capsule 200 mg PO TID Qty: 21 0RF levetiracetam 1,000 mg Tablet 1,000 mg PO BID Qty: 180 0RF magnesium oxide 400 mg (241.3 mg magnesium) tablet 400 mg PO BID Qty: 14 0RF Discharge Orders: Discharge Order (Routine); Ordered 07/09/25 Ordered By: Karen Galeano Diet: Advance to usual diet Activity on Discharge: As tolerated Stand Alone Forms: Patient Portal Discharge page Print Language: [place] Care Plan Goals: as below. Health Concerns: Monitor BMP. Keppra prescription sent, also gabapentin and magnesium limited supply also sent. Complete Ceftin 250 b.i.d. for 5 days. Strongly advised to abstain from alcohol Further management outpatient with the PCP. Plan of Treatment: As above. Assessment: As above.
[2025-07-09 18:27] VITALS: O2SAT 99
== END 2025-07-09 19:04 | disposition home or self-care (01) | DRG 775 ==
LOC: HO.ED 16:59 → HO.EDOVER 17:16 → HO.IMC 07-08 15:55
PROVIDERS: Internal Medicine; Physician Assistant; Admitting Provider Physician Assistant Medical; Emergency Provider Emergency Medicine; PCP Family Medicine; Visit Provider Internal Medicine
DX: F10.139 Alcohol abuse with withdrawal, unspecified (principal); F10.129 Alcohol abuse with intoxication, unspecified; E87.1 Hypo-osmolality and hyponatremia; F32.A Depression, unspecified; R00.0 Tachycardia, unspecified; E83.42 Hypomagnesemia; Y90.8 Blood alcohol level of 240 mg/100 ml or more; E87.6 Hypokalemia; Z71.51 Drug abuse counseling and surveillance of drug abuser; Z79.899 Other long term (current) drug therapy
CPT/HCPCS: 36415; 71045; 80048; 80053; 80076; 80307; 81001; 82803; 83605; 83735; 85025; 85027; 87040; 87086; 93005; 99285; J0696; J1650; J1953; J2560; J3360; J3475; J3480; J7120

== ENCOUNTER 2025-07-07 16:52 | Outpatient (BNV) | payer OTHER, SELFPAY | END 2025-07-07 18:01 | PROVIDERS: Admitting Provider Physician Assistant Medical; Emergency Provider Emergency Medicine; Visit Provider Internal Medicine Cardiovascular Disease | DX: R00.0 Tachycardia, unspecified (principal) | CPT/HCPCS: 93010 ==

== ENCOUNTER 2025-07-07 16:52 | Outpatient (BNV) | payer OTHER, SELFPAY | END 2025-07-07 17:00 | PROVIDERS: Admitting Provider Physician Assistant Medical; Emergency Provider Emergency Medicine; Visit Provider Radiology Diagnostic Radiology | DX: F10.239 Alcohol dependence with withdrawal, unspecified (principal) | CPT/HCPCS: 71045 ==

== ENCOUNTER → 2025-07-07 16:52 | Outpatient (BNV) | payer OTHER, SELFPAY | PROVIDERS: Admitting Provider Physician Assistant Medical; Emergency Provider Emergency Medicine; Visit Provider Internal Medicine | DX: F10.139 Alcohol abuse with withdrawal, unspecified (principal) | CPT/HCPCS: 99222; 99231; 99239; 99499 ==

== ENCOUNTER 2025-09-12 04:37 | Inpatient (IN) | payer OTHER, SELFPAY ==
[2025-09-12] VITALS (9 sets, daily range): BP systolic 110–148; BP diastolic 63–91; PULSE 82–145; RESP 13–26; TEMP 36.6–37.6; O2SAT 97–100; BMI 23.3; BMI 20.4
--- OUTSIDE RECORDS SUMMARY | 2025-09-12 05:04 | XMS_ITS | Clinical Summary ---
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 Patient unable to answer [...] Pap Smear (Ages 21-65) 2011 Influenza Vaccine 06/01/2025 COVID-19 Vaccine (1 - 2023-2 5 season) 2025 HIV Screening Completed 09/17/2024 HPV Vaccines (No Doses Required) Completed Pneumococcal Vaccine: Pediat summer (0-5 Years) and [...] CMIA Nonreactive Nonreactive 09/18/2024 11:49 AM EST [facility] Comment: Results show no evidence [...] PA-C LAB BLOOD ORDERABLES Final Resul t [facility] [address] [place] [address], from Last 3 Months or Most Recently Relevant to Health Maintenance Insurance [facility] Advance Directives * Full Code (Latest [...]
--- NOTE | 2025-09-12 05:09 | ED.GENADULT ---
HPI - General Adult General Chief complaint: General Medical Stated complaint: n/v Time Seen by Provider: 09/12/25 05:09 Source: patient, EMS, RN notes reviewed and old records reviewed Mode of arrival: EMS Limitations: altered mental status History of Present Illness ED Provider: Dr. Leidy Manzanares HPI narrative: 34-year-old female with a history of alcohol use disorder, seizure disorder on Keppra and gabapentin presenting with alcohol withdrawal seizure that reportedly happened at home this morning. Patient states her last drink was last night at some point. She drinks about a sleeve of vodka nips per day though she admits she has been trying to cut back. She does have a history of alcohol withdrawal seizure. Admits that she was started on Keppra and has recently had her gabapentin dose reduced which has brought her some additional anxiety. Describes subjective fevers, nausea, vomiting, chronic diarrhea without melena or hematochezia. No known sick contacts or questionable food intake. She denies illicit substance use. She does vape nicotine. Denies suicidal ideation or auditory/visual hallucinations. Related Data Home Medications ?Medication ?Instructions ?Recorded ?Confirmed omeprazole 20 mg capsule,delayed 20 mg PO DAILY@0630 03/28/25 07/08/25 release multivitamin-iron 9 mg-folic acid 1 tab PO DAILY 05/22/25 07/08/25 400 mcg-calcium and minerals tablet (Therapeutic-M) potassium chloride 10 mEq 10 meq PO DAILY 05/22/25 07/08/25 capsule,extended release buspirone 5 mg tablet 5 mg PO BID 07/07/25 07/08/25 quetiapine 50 mg tablet 50 mg PO BEDTIME 07/07/25 07/08/25 Previous Rx's ?Medication ?Instructions ?Recorded folic acid 1 mg tablet 1 mg PO DAILY #30 tabs 05/24/23 thiamine mononitrate (vit B1) 100 100 mg PO DAILY #30 tabs 01/26/25 mg tablet naltrexone 50 mg tablet 50 mg PO DAILY #30 tabs 04/01/25 sodium chloride 1,000 mg soluble 1,000 mg PO TID #30 tabs 04/01/25 tablet duloxetine 20 mg capsule,delayed 20 mg PO DAILY #30 caps 05/24/25 release cefuroxime axetil 250 mg tablet 250 mg PO Q12H #10 tabs 07/09/25 gabapentin 100 mg capsule 200 mg (2 x 100 mg) PO TID #21 caps 07/09/25 levetiracetam 1,000 mg tablet 1,000 mg PO BID #180 tabs 07/09/25 magnesium oxide 400 mg (241.3 mg 400 mg PO BID #14 tabs 07/09/25 magnesium) tablet Allergies Allergy/AdvReac Type Severity Reaction Status Date / Time cat dander AdvReac Itching Verified 09/12/25 04:53 dog dander AdvReac Itching Verified 09/12/25 04:53 Iodinated Contrast Media AdvReac Hives Verified 09/12/25 04:53 (Contrast Dye) Review of Systems Review of Systems: as per HPI, full review of systems performed and negative but for the above mentioned pertinent positives and negatives. [facility] Past Medical History Medical History Depressed affect Seizures Alcohol use disorder, severe, dependence Hypomagnesemia Acute hyponatremia Acute urinary retention Acute hypokalemia Epileptic seizure Alcohol withdrawal Seizure Acute dehydration Acute hypokalemia Acute alcohol intoxication Acute respiratory failure Acute hypokalemia Acute hyponatremia Alcohol withdrawal Status epilepticus Withdrawal seizures Depression Alcoholism Social History Social History Household Members: Significant Other and Family Household Members Other:: Currently lives with parents Housing: House Do you presently have visiting nurse or other home services: No Alcohol intake: current Alcohol intake frequency: 3 or more drinks per day Alcohol type: hard liquor Comment: pt refused bed alarm Patient Tobacco Use Status: Tobacco use Unknown Tobacco use type: Smokeless Tobacco Smoked in Last 30 Days: Yes e-Cigarette/Vaping Use: Currently Using Use of substances other than those prescribed or required for medical reasons: Refusing to respond Substance Use Type: Crack/Cocaine Advance Directives: No Advance Directives Information Provided: Yes Do you have a plan to hurt others: No Plan Patient : No service: No Physical Exam ED Exam Exam: GENERAL: Ill-Appearing, appears uncomfortable, actively retching. SKIN: Normal skin color for ethnicity, warm, dry, no rashes noted. HEENT:? Normocephalic, atraumatic, no stridor, dry mucous membranes, dentition intact, EOMI. NECK: Soft, supple, full ROM, midline structures nontender, no step-offs, no deformities, no lymphadenopathy. CHEST: Heart regular tachycardia, no murmurs, symmetric chest rise and fall. PULMONARY: Clear to auscultation bilaterally, diminished at the bases, no labored breathing, no wheezes/rhales/rhonchi. ABDOMINAL: Soft, nondistended, nontender, hyperactive bowel sounds in all quadrants. : Deferred. MUSCULOSKELETAL: Normal tone, full range of motion, no deformities, no peripheral edema. NEURO: Alert and oriented to person, CN II through XII intact, equal strength and sensation bilateral upper and lower extremities, no focal neurologic deficits.? PSYCHIATRIC: Flat affect, poor eye contact and appropriate demeanor. Vital Signs: Vital Signs - 24 hr 09/12/25 04:50 09/12/25 05:51 09/12/25 06:51 Temperature 98.1 F Pulse Rate 145 H 123 H Respiratory Rate 26 H 19 13 Blood Pressure 131/90 H 125/91 H 134/91 H Pulse Oximetry 99 100 97 Oxygen Delivery Method Room Air Room Air Room Air BMI result Body Mass Index 23.3 Medications Administered Generic Name Dose Route Start Last Admin Trade Name Freq PRN Reason Stop Dose Admin Magnesium Sulfate 2 gm in 50 mls @ 25 mls/hr 09/12/25 05:31 09/12/25 05:52 Magnesium Sulfate/H2o IV 09/12/25 07:30 25 mls/hr ONCE ONE Administration Dextrose 1,000 mls @ 150 mls/hr 09/12/25 06:15 09/12/25 06:45 D5w IVCONT 150 mls/hr .Q6H40M ARTURO Administration Discontinued Medications Generic Name Dose Route Start Last Admin Trade Name Freq PRN Reason Stop Dose Admin Diazepam 5 mg 09/12/25 05:10 09/12/25 05:25 Diazepam 10 Mg/2 Ml Cartridge IVPUSH 09/12/25 05:11 5 mg STAT STA Administration Gabapentin 600 mg 09/12/25 05:56 09/12/25 06:18 Gabapentin 600 Mg Tablet PO 09/12/25 05:57 Not Given ONCE ONE Lactated Ringer's 1,000 mls @ 999 mls/hr 09/12/25 05:10 09/12/25 06:37 Lr IV 09/12/25 06:10 Infused .Q1H1M ONE Infusion Levetiracetam 1,000 mg in 100 mls @ 400 mls/hr 09/12/25 05:56 09/12/25 06:37 Keppra IV 09/12/25 06:10 Infused ONCE ONE Infusion Thiamine HCl 200 mg/ Sodium 102 mls @ 204 mls/hr 09/12/25 05:56 09/12/25 06:37 Chloride IV 09/12/25 06:25 Infused ONCE ONE Infusion Ondansetron HCl 4 mg 09/12/25 05:10 09/12/25 05:24 Ondansetron Hcl 4 Mg/2 Ml Vial IVPUSH 09/12/25 05:11 4 mg ONCE ONE Administration Medical Decision Making Medical Decision Making MDM Narrative: Patient presents with request for alcohol detox in the setting of alcohol withdrawal seizure. Differential diagnosis includes alcohol intoxication, alcohol withdrawal, substance use disorder, decompensated mental illness including depression and anxiety, antiepileptic noncompliance, dehydration, electrolyte abnormality, arrhythmia, among many others. We will initiate medical clearance and recovery team/care team consult. Patient found to be substantially ketotic with an anion gap of 34. Suspect metabolic acidosis, alcohol withdrawal seizure. She was loaded with Keppra, given a dose of Valium upon arrival to the emergency department and fluid resuscitation initiated. Her heart rate is high which I suspect is related to anxiety and withdrawal. Her initial CIWA was 18. Improved to 10 after initial dose of Valium. Given her electrolyte derangements, we will treat as alcohol withdrawal seizure with phenobarbital protocol, admit to hospitalist for further care and evaluation of alcoholic ketoacidosis, alcohol withdrawal seizure, alcohol intoxication, dehydration. Patient understands and agrees with the plan. Admitted in guarded condition. Differential Diagnosis Differential Diagnoses: The differential diagnosis associated with the presentation includes (As above) Admission/Observation Consideration of admission/observation: Escalation of care including admission/observation considered Consult Healthcare Provider Management of the patient was discussed with: Hospitalist Lab Data [facility] Lab Attestation statement: I reviewed the patient's lab results. 09/12/25 05:18 09/12/25 05:18 Labs: Lab Results 09/12/25 09/12/25 Range/Units 05:18 06:33 WBC 13.6 H (4.8-10.8) X10*3/uL RBC 5.27 (4.20-5.50) X10*6/uL Hgb 14.9 (12.0-16.0) g/dl Hct 43.7 (37.0-47.0) % MCV 82.9 (80.0-98.0) fL MCH 28.3 (27.0-33.0) pg MCHC 34.1 (31.0-35.0) g/dl RDW 16.4 H (11.0-16.0) % Plt Count 319 (160-400) X10*3/uL MPV 9.1 L (9.4-12.3) fL Immature Gran % (Auto) 0.2 (0.0-0.4) % Neut % (Auto) 88.1 H (45-73) % Lymph % (Auto) 7.6 L (20-40) % [place]rio % (Auto) 3.8 (2-11) % Eos % (Auto) 0.0 (0-4) % Baso % (Auto) 0.3 (0-2) % Lymph # (Auto) 1.0 L (1.2-4.9) X10*3/uL [place] # (Auto) 0.5 (0.1-1.2) X10*3/uL Eos # (Auto) 0.0 (0.0-0.4) X10*3/uL Baso # (Auto) 0.0 (0.0-0.2) X10*3/uL Abs Immat Gran (auto) 0.03 (0.00-0.03) X10*3/uL Absolute Neuts (auto) 12.0 H (2.0-8.3) x10*3/uL Absolute Nucleated RBC 0.000 (0.0-0.012) X10*3/uL Nucleated RBC % (auto) 0.0 (0.0-0.2) /100WBC VBG pH 7.44 H (7.32-7.43) VBG pCO2 26 mmHg VBG pO2 59 mmHg VBG HCO3 18 L (22-26) mmol/L VBG O2 Saturation 81.0 % VBG Base Excess -3.9 mmol/L Sodium 137 (135-145) mmol/L Potassium 3.5 (3.3-5.1) mmol/L Chloride 91 L (96-108) mmol/L Carbon Dioxide 14 L (22-29) mmol/L Anion Gap 36 H (12-20) BUN 15 (9-16) mg/dL Creatinine 0.83 (0.5-1.4) mg/dL Estim Creat Clear Calc 85.9 Estimated GFR > 60 Random Glucose 214 H (60-115) mg/dL Calcium 9.0 D (8.4-10.2) mg/dL Total Bilirubin 0.9 (0.0-1.0) mg/dL AST 51 H (5-31) U/L ALT 20 (0-31) U/L Alkaline Phosphatase 135 H (39-117) U/L Total Protein 9.3 H (6.5-8.0) g/dL Albumin 5.0 (3.5-5.0) g/dL Lipase 9 (8-78) U/L Beta HCG, Quant < 2 mIU/mL Ethyl Alcohol 275 mg/dL Independent Interpretation I performed an independent interpretation of an: EKG Independent Historian Clinical information obtained from an independent historian. History obtained from or confirmed by: EMS External Record Review External record reviewed: Inpatient record Chronic Conditions Patient?s care impacted by: Other (Seizure disorder, alcohol use disorder) Social Determinants Patient?s care significantly limited by Social Determinants of Health including: Other Social Determinant of Health Critical Care Time Critical Care Time Critical Care Time: Yes Total Critical Care Time: 45 Attestation: CRITICAL CARE TIME: 45 minutes of critical care time was spent in direct patient care at the bedside or in the immediate area with this patient. Critical care was necessary to treat or prevent imminent or life-threatening deterioration of the following conditions alcohol withdrawal seizure, phenobarbital for alcohol withdrawal, metabolic acidosis due to alcoholic ketoacidosis. This patient is high risk for decompensation and/or . This time was spent assessing and managing the patient, interpreting labs and imaging, coordinating care with other medical providers, gathering history from either the patient, their representatives, EMS or chart review, and discussing management with admitting team. Discharge Plan Discharge Clinical Impression: High anion gap metabolic acidosis, Alcoholic ketoacidosis, Alcohol withdrawal seizure, Alcohol intoxication, Acute dehydration Patient Disposition: Admitted As Inpatient Print Language: Macedonian
--- NOTE | 2025-09-12 05:10 | ECG_ITS ---
Test Reason : tachy Blood Pressure : */* mmHG Vent. Rate : 134 BPM Atrial Rate : 134 BPM P-R Int : 126 ms QRS Dur : 84 ms QT Int : 382 ms P-R-T Axes : 81 92 62 degrees QTcB Int : 570 ms Sinus tachycardia Rightward axis Nonspecific ST abnormality Abnormal ECG When compared with ECG of 07-Jul-2025 18:01, No significant change was found Referred By: Leidy Manzanares Electronically Signed By: CHING MCCARTHY MD
[2025-09-12 05:22] LABS: MANUAL DIFF FLAG NO
[2025-09-12 05:23] LABS: Hematocrit 43.7 % (37.0-47.0); Hemoglobin 14.9 g/dl (12.0-16.0); Imm Gran Abs Auto 0.03 X10*3/uL (0.00-0.03); Imm Gran Pct Auto 0.2 % (0.0-0.4); Lymphocytes Absolute Auto 1.0 X10*3/uL (1.2-4.9); Mean Corpuscular HGB Conc 34.1 g/dl (31.0-35.0); Mean Corpuscular Hemoglobin 28.3 pg (27.0-33.0); Mean Corpuscular Volume 82.9 fL (80.0-98.0); NRBC Abs Auto 0.000 X10*3/uL (0.0-0.012); NRBC Pct Auto 0.0 /100WBC (0.0-0.2); Platelet Count 319 X10*3/uL (160-400); Red Blood Count 5.27 X10*6/uL (4.20-5.50); White Blood Count 13.6 X10*3/uL (4.8-10.8)
[2025-09-12] MEDS: Lactated Ringers 1,000 ML 999 ML IV (05:25)
[2025-09-12] MEDS: diazePAM 10 MG/2 ML CARTRIDGE 5 MG IVPUSH ×2 (05:25→07:37)
[2025-09-12 05:46] LABS: Alanine Aminotransferase 20 U/L (0-31); Albumin Level 5.0 g/dL (3.5-5.0); Alkaline Phosphatase 135 U/L (39-117); Anion Gap 36 (12-20); Aspartate Amino Transferase 51 U/L (5-31); Blood Urea Nitrogen 15 mg/dL (9-16); Calcium 9.0 mg/dL (8.4-10.2); Carbon Dioxide 14 mmol/L (22-29); Chloride 91 mmol/L (96-108); Creatinine Clr Calc Pharmacy 85.9; Estimated Glomerular Filt Rate > 60; Lipase 9 U/L (8-78); Potassium 3.5 mmol/L (3.3-5.1); Sodium 137 mmol/L (135-145); Total Protein 9.3 g/dL (6.5-8.0)
[2025-09-12] MEDS: Magnesium Sulfate/H2O 2 GM/50 ML PIGGYBACK IV (05:52)
[2025-09-12] MEDS: levETIRAcetam in NaCl (iso-os) 1,000 MG/100 ML PIGGYBACK 400 MG IV (06:10)
[2025-09-12] MEDS: Thiamine HCL 200 MG in 0.9 % Sodium Chloride 100 ML 204 MG IV (06:10)
[2025-09-12 06:31] LABS: Venous Blood Gas Refer to POC result
[2025-09-12 06:37] LABS: VBG HCO3 18 mmol/L (22-26); VBG O2 % Saturation 81.0 %
--- NOTE | 2025-09-12 07:28 | PM.IMHP ---
History of Present Illness Date of Service: 09/12/25 Chief Complaint: seizure 34 year old women admitted after alcohol withdrawal seizure. She last drink overnight. Apparently she had a seizure early this morning. She drinks one sleeve of vodka a day. She was started on Keppra and hr gabapentin was reduced so she started having more anxiety. She stated that she was having general body pain and shaking. Her alcohol level was 275. She was given IV Valium, Keppra, magnesium, thiamine, Neurontin count of phenobarbital IV fluids. She was noted to be quite tachycardic likely secondary to withdrawals. She will be admitted for further management and treatment of acute alcohol seizure and withdrawal Review of Systems Review of Systems: Denies any recent fever chills or decrease in appetite respiratory denies any shortness of breath or cough cardiovascular denied chest pain gastrointestinal denies any dysphagia abdominal pain nausea vomiting or diarrhea genitourinary denies any dysuria frequency or hematuria musculoskeletal denies any joint pain or swelling neuropsych denies any weakness or seizures all other systems reviewed are negative [facility] Medical History (Updated 09/12/25 @ 09:31 by Zara Mccoy NP) Alcohol use disorder, severe, dependence Epileptic seizure Withdrawal seizures Depression Social History Household Members: Significant Other and Family Household Members Other:: Currently lives with parents Housing: House Do you presently have visiting nurse or other home services: No Alcohol intake: current Alcohol intake frequency: 3 or more drinks per day Alcohol type: hard liquor Comment: pt refused bed alarm Patient Tobacco Use Status: Tobacco use Unknown Tobacco use type: Smokeless Tobacco Smoked in Last 30 Days: Yes e-Cigarette/Vaping Use: Currently Using Use of substances other than those prescribed or required for medical reasons: Refusing to respond Substance Use Type: Crack/Cocaine Advance Directives: No Advance Directives Information Provided: Yes Do you have a plan to hurt others: No Plan Patient : No service: No Meds Allergies Allergy/AdvReac Type Severity Reaction Status Date / Time cat dander AdvReac Itching Verified 09/12/25 04:53 dog dander AdvReac Itching Verified 09/12/25 04:53 Iodinated Contrast Media AdvReac Hives Verified 09/12/25 04:53 (Contrast Dye) Active Medications: Current Medications Magnesium Sulfate (Magnesium Sulfate/H2o) 2 gm in 50 mls @ 25 mls/hr IV ONCE ONE Stop: 09/12/25 07:30 Last Infusion: 09/12/25 07:00 Dose: Infused Dextrose (D5w) 1,000 mls @ 150 mls/hr IVCONT .Q6H40M ARTURO Last Admin: 09/12/25 06:45 Dose: 150 mls/hr Pharmacy Consult (Consult Rx Etoh Phenob Im/Po) 1 each MISCELLANE ONCE PRN; Protocol PRN Reason: Consult order Phenobarbital (Phenobarbital 15 Mg Tablet) 45 mg PO BID ARTURO; Protocol Stop: 09/14/25 09:01 Phenobarbital (Phenobarbital 30 Mg Tablet) 30 mg PO BID ARTURO; Protocol Stop: 09/16/25 09:01 Phenobarbital (Phenobarbital 30 Mg Tablet) 30 mg PO DAILY ARTURO; Protocol Stop: 09/18/25 09:01 Phenobarbital Sodium (Phenobarbital Sodium 130 Mg/Ml Vial Im Q3hx2) 256 mg IM Q3H ARTURO; Protocol Stop: 09/12/25 13:01 Home Medications ?Medication ?Instructions ?Recorded ?Confirmed ?Last Taken ?Type omeprazole 20 mg capsule,delayed 20 mg PO DAILY@0630 03/28/25 09/12/25 09/08/25 History release multivitamin-iron 9 mg-folic acid 1 tab PO DAILY 05/22/25 09/12/25 09/08/25 History 400 mcg-calcium and minerals tablet (Therapeutic-M) potassium chloride 10 mEq 10 meq PO DAILY 05/22/25 09/12/25 09/08/25 History capsule,extended release buspirone 5 mg tablet 5 mg PO BID 07/07/25 09/12/25 09/08/25 History quetiapine 50 mg tablet 50 mg PO BEDTIME 07/07/25 09/12/25 09/08/25 History gabapentin 100 mg capsule 100 mg PO TID 09/12/25 09/12/25 09/08/25 History meloxicam 15 mg tablet 15 mg PO DAILY 09/12/25 09/12/25 09/08/25 History multivitamin (One Daily 1 tab PO DAILY 09/12/25 09/12/25 09/08/25 History Multivitamin tablet) topiramate 25 mg tablet 25 mg PO BEDTIME 09/12/25 09/12/25 09/08/25 History Physical Exam Vital Signs and Narrative: Vital Signs: Last Vital Signs Temp 98.1 F 09/12/25 04:50 Pulse 123 H 09/12/25 05:51 Resp 13 09/12/25 06:51 BP 134/91 H 09/12/25 06:51 Pulse Ox 97 09/12/25 06:51 O2 Del Method Room Air 09/12/25 06:51 BMI result Body Mass Index 23.3 Appearing in no acute distress head is normocephalic atraumatic eyes pupils are PERRLA sclera is anicteric mouth throat mucous membranes are intact and moist neck is supple no lymphadenopathy, no JVD noted lung sounds are clear to auscultation heart regular rate rhythm, clear S1, S2 positive bowel sounds, abdomen is soft, nontender neuro patient is alert x3, no focal deficits Results Labs 09/12/25 05:18 09/12/25 05:18 Labs: Laboratory Results - last 24 hr 09/12/25 09/12/25 05:18 06:33 MCV 82.9 MCH 28.3 MCHC 34.1 RDW 16.4 H Plt Count 319 MPV 9.1 L Immature Gran % (Auto) 0.2 Neut % (Auto) 88.1 H Lymph % (Auto) 7.6 L [place] % (Auto) 3.8 Eos % (Auto) 0.0 Baso % (Auto) 0.3 Lymph # (Auto) 1.0 L [place] # (Auto) 0.5 Eos # (Auto) 0.0 Baso # (Auto) 0.0 Abs Immat Gran (auto) 0.03 Absolute Neuts (auto) 12.0 H Absolute Nucleated RBC 0.000 Nucleated RBC % (auto) 0.0 VBG pH 7.44 H VBG pCO2 26 VBG pO2 59 VBG HCO3 18 L VBG O2 Saturation 81.0 VBG Base Excess -3.9 Anion Gap 36 H Estim Creat Clear Calc 85.9 Estimated GFR > 60 Random Glucose 214 H Calcium 9.0 D Total Bilirubin 0.9 AST 51 H ALT 20 Alkaline Phosphatase 135 H Total Protein 9.3 H Albumin 5.0 Lipase 9 Beta HCG, Quant < 2 Ethyl Alcohol 275 Assessment and Plan (1) Alcoholic intoxication: Status: Acute Plan 34-year-old woman admitted with acute alcohol seizure withdrawal. Patient drinks at least 1 sleep of vodka a day. Alcohol withdrawal and intoxication Started on phenobarbital protocol Continue IV fluids IV thiamine PPI Regular diet Addiction team consultation Alcohol seizure Secondary to heavy alcohol abuse Continue Keppra, Topamax and gabapentin Manage alcohol withdrawal symptoms to avoid further seizure activity Seizure precautions Mental health Continue Seroquel DVT prophylaxis with Lovenox Full code Quality Stroke Does the patient have a stroke diagnosis?: No VTE Prior VTE?: No VTE Risk Level:: Medical - moderate - high VTE Device Contraindication: Treatment Not Indicated VTE Drug Contraindication: N/A - Med Ordered
[2025-09-12] MEDS: PHENobarbitaL sodium 130 MG/ML IM ONCE 342 MG IM (07:29)
--- NOTE | 2025-09-12 07:41 | PC.NURSE ---
assumed care of patient at 0700, patient is awake and alert, noted to be vomiting copious amounts of bile. patient is in sinus tach on the monitor rate 130-140s. patient medicated per DEC. ED provider notified of patient vomiting/tachy, given ivp valium per DEC. patient has D5 running 150ml/hr at this time.
--- NOTE | 2025-09-12 08:38 | PHA.MEDREC ---
Addendum entered by Michel Iqbal RPh 09/12/25 09:26: MED REC REVIEWED BY [facility] Original Note: Pharmacy Consult ? Medication Reconciliation Pharmacy has completed the medication reconciliation. Patient was very sleepy and slow at answering question, however she was able to say yes or no to her medications. Patient states she is no longer taking Duloxetine 20 mg, and Sodium chloride 1,000 mg. Patient confirmed Buspirone 5 mg BID last filled 07/05/25 for 90 days , however claims has Buspirone 7.5 mg BID from 09/05/25 for 90 days. Patient states she hasn't had any medication in a few days.
--- NOTE | 2025-09-12 08:51 | HO.NURTONUR ---
Sabine is a 34F full code who presented to the ED with complaints of alcohol withdrawal seizure at home, patient states her last drink was last night at some point. patient admits to drinking 1 sleeve of nips a day but has been cutting back. patient has hx of withdrawal seizures. seizure precautions in place, patient has IV access in right arm, has D5 running 50ml/hr. patient is alert and oriented x3, started on pheno this morning.
[2025-09-12] MEDS: PHENobarbitaL sodium 130 MG/ML VIAL IM Q3Hx2 256 MG IM (11:03)
[2025-09-12] MEDS: Lactated Ringers 1,000 ML 125 ML IVCONT ×2 (11:10→19:18)
--- NOTE | 2025-09-12 15:27 | MHC.CM.PN ---
Patient lives with her Parents. Home self care vs Recovery team intervention r/t ETOH is the tentative plan and CM has initiated and will follow for dc planning. PCP is Dr. Flores and Patient may need assist with transport.
[2025-09-13] MEDS: Lactated Ringers 1,000 ML 125 ML IVCONT ×2 (03:53→11:58)
[2025-09-13 03:54] VITALS: BP 107/66; PULSE 80; RESP 18; TEMP 36.9; O2SAT 97
[2025-09-13 05:58] LABS: Hematocrit 32.9 % (37.0-47.0); Hemoglobin 10.7 g/dl (12.0-16.0); Mean Corpuscular HGB Conc 32.5 g/dl (31.0-35.0); Mean Corpuscular Hemoglobin 27.9 pg (27.0-33.0); Mean Corpuscular Volume 85.9 fL (80.0-98.0); NRBC Abs Auto 0.000 X10*3/uL (0.0-0.012); NRBC Pct Auto 0.0 /100WBC (0.0-0.2); Platelet Count 141 X10*3/uL (160-400); Red Blood Count 3.83 X10*6/uL (4.20-5.50); White Blood Count 8.4 X10*3/uL (4.8-10.8)
[2025-09-13 06:22] LABS: Anion Gap 14 (12-20); Blood Urea Nitrogen 5 mg/dL (9-16); Calcium 8.4 mg/dL (8.4-10.2); Carbon Dioxide 22 mmol/L (22-29); Chloride 98 mmol/L (96-108); Creatinine Clr Calc Pharmacy 133.8; Estimated Glomerular Filt Rate > 60; Potassium 3.5 mmol/L (3.3-5.1); Sodium 130 mmol/L (135-145)
[2025-09-13 07:20] VITALS: BP 99/70; PULSE 72; RESP 18; TEMP 37.2; O2SAT 97
[2025-09-13] MEDS: Thiamine HCL 100 MG in 0.9 % Sodium Chloride 100 ML 202 MG IV (08:17)
[2025-09-13] MEDS: Potassium Chloride ER 10 MEQ TABLET.ER PO (08:17)
--- NOTE | 2025-09-13 09:40 | MHC.RECOVRN ---
Consult received by Addiction Medicine for ETOH use. On approach pt was resting with eyes closed and did not respond to name being called. Respirations even and unlabored, no signs of restlessness or diaphoresis noted. TW will attempt to meet with pt before lunch to conduct recovery/BH assessment. ACS team available as needed
[2025-09-13 11:11] VITALS: BP 113/61; PULSE 79; RESP 18; TEMP 36.4; O2SAT 98
--- NOTE | 2025-09-13 13:55 | P.DS_ITS ---
DS: Providers Provider Date of Service: 09/13/25 Date of admission: 09/12/25 08:03 Date of discharge: 09/13/25 Primary care physician: Rupert Flores MD Consults: 09/12/25 10:29 Addiction Medicine Provider Routine Consulting Provider: Addiction Covering Reason for consultation: etoh Attending physician on discharge: Karen Galeano Discharging clinician: Karen Galeano DS: Diagnosis Discharge Diagnosis (1) Alcoholic intoxication: Status: Acute DS: Summary Hospital Course Hospital Course: HPI:34-year-old woman admitted with acute alcohol seizure withdrawal. Patient drinks at least 1 sleep of vodka a day. Hospital course: Patient came to the hospital because of alcohol withdrawal/seizure: Started on phenobarb protocol, seems to be improved significantly, now at her baseline. No new seizure-like activity afterwards. 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 Mild elevated LFT possible secondary to alcohol use, monitor outpatient with PCP, strongly advised to abstain from alcohol for that. plan: Continue home Keppra, Topamax and gabapentin Abstain from alcohol, monitor LFTs, follow up with PCP. Continue naltrexone. Above management discussed with the patient detail length she understand and in agreement with the above plan, time spent 45 minute. Time Attestation Total time managing care of this patient today: 45 mintues. Discharge Coordination Time (in mins): 45 min Quality: Safe Use of Opioids Does Pt have an Active Cancer Diagnosis on the Problem List?: No Quality: Stroke Does the patient have a stroke diagnosis?: No Physical Exam Exam: Exam: Appearance: Alert.? Oriented X3.? cvs: rrr, [id number] , no murmur. res: clear to auscultation ,no rhonchii or wheezing abd: no rebound or guarding ,nt, bs present. ext pulses present , no cyanosis . neuro: axo3 , nonfocal. Vital Signs: Vital Signs: Last Vital Signs Temp 97.6 F 09/13/25 11:11 Pulse 79 09/13/25 11:11 Resp 18 09/13/25 11:11 BP 113/61 09/13/25 11:11 Pulse Ox 98 09/13/25 11:11 O2 Del Method Room Air 09/13/25 11:11 BMI result Body Mass Index 20.4 DS: Data Data Completed and Pending Completed studies during hospitalization [Text1]: Procedures Detoxification Services for Substance Abuse Treatment (07/07/25) Insertion of Endotracheal Airway into Trachea, Via Natural or Artificial Opening (06/18/24) Insertion of Infusion Device into Superior Vena Cava, Percutaneous Approach (06/18/24) Respiratory Ventilation, 24-96 Consecutive Hours (06/18/24) Ultrasonography of Superior Vena Cava, Guidance (06/18/24) Labs on day of discharge: Laboratory Results - last 24 hr 09/13/25 05:27 WBC 8.4 RBC 3.83 L D Hgb 10.7 L D Hct 32.9 L D MCV 85.9 MCH 27.9 MCHC 32.5 RDW 16.2 H Plt Count 141 L D MPV 10.2 Absolute Nucleated RBC 0.000 Nucleated RBC % (auto) 0.0 Sodium 130 L Potassium 3.5 Chloride 98 Carbon Dioxide 22 Anion Gap 14 BUN 5 L Creatinine 0.52 Estim Creat Clear Calc 133.8 Estimated GFR > 60 Random Glucose 83 Calcium 8.4 D Discharge Plan Discharge Anticipated Discharge Date/Time: 09/13/25 13:44 Patient Disposition: Home, Self-Care Discharge Diagnosis: Alcohol withdrawal, mild elevated LFTs Referrals: [facility] [Other] - 09/14/25 8:00 am Referral Note: A referral has been sent on your behalf for recovery coaching. They should be in contact to initiate services. Feel free to follow-up with them upon discharge. Rupert Flores MD [Primary Care Provider, Family Practice] - 1 Week Referral Note: Please call for follow up appt and to continue Naltrexone prescription as per your request. Discharge Medications: Continued folic acid 1 mg Tablet 1 mg PO DAILY Qty: 30 0RF multivitamin [One Daily Multivitamin] Tablet 1 tab PO DAILY meloxicam 15 mg tablet 15 mg PO DAILY topiramate 25 mg tablet 25 mg PO BEDTIME gabapentin 100 mg capsule 100 mg PO TID thiamine mononitrate (vit B1) 100 mg Tablet 100 mg PO DAILY Qty: 30 0RF omeprazole 20 mg capsule,delayed release(DR/EC) 20 mg PO DAILY@0630 naltrexone 50 mg Tablet 50 mg PO DAILY Qty: 30 0RF Therapeutic-M 9 mg iron-400 mcg tablet 1 tab PO DAILY potassium chloride 10 mEq capsule, extended release 10 meq PO DAILY buspirone 5 mg tablet 5 mg PO BID quetiapine 50 mg tablet 50 mg PO BEDTIME levetiracetam 1,000 mg Tablet 1,000 mg PO BID Qty: 180 0RF magnesium oxide 400 mg (241.3 mg magnesium) tablet 400 mg PO BID Qty: 14 0RF Discharge Orders: Discharge Order (Routine); Ordered 09/13/25 Ordered By: Karen Galeano Diet: Advance to usual diet Activity on Discharge: As tolerated Stand Alone Forms: Patient Portal Discharge page Print Language: Bahraini Care Plan Goals: Patient came to the hospital because of alcohol withdrawal/seizure: Started on phenobarb protocol, seems to be improved significantly, now at her baseline. 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 Mild elevated LFT possible secondary to alcohol use, monitor outpatient with PCP, strongly advised to abstain from alcohol for that. Health Concerns: As above. Monitor LFTs Strongly advised to abstain from alcohol. Plan of Treatment: As above. Assessment: As above.
--- NOTE | 2025-09-13 14:08 | MHC.CM.PN ---
Patient has been medically cleared for dc to home today, self care.
--- NOTE | 2025-09-13 14:16 | MHC.RECOVRN ---
Addiction consult received for pt admitted with AUD.? Pt agreed to meet with TW in . She denies w/d symptoms and reports ?I'm just feeling tired?. Pt reports consuming 1 sleeve of vodka daily for several years. She states she can quit for weeks at a time but when she returns to use ?I can?t stop?. Pt states she was utilizing Naltrexone for AUD when she was able to remain abstinent. She also reports several admissions to area detox facilities as well as attending IOP but does not feel it was helpful.?? 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 Pt also vocalized she will return to attending AA meetings in the community.? Pt provided verbal and written education and resources in relation to therapy, IOP, pathways to recovery, and harm reduction techniques.? Pt provided with TW contact information. She denies other concerns at this time.? ACS team available as needed for ongoing support.
== END 2025-09-13 15:30 | disposition home or self-care (01) | DRG 775 ==
LOC: HO.ED 07:03 → HO.EDOVER 08:03 → HO.IMC 08:21
PROVIDERS: Admitting Provider Nurse Practitioner Acute Care; Emergency Provider Emergency Medicine; PCP Family Medicine; Visit Provider Internal Medicine
DX: F10.232 Alcohol dependence with withdrawal with perceptual disturbance (principal); F10.229 Alcohol dependence with intoxication, unspecified; E87.29 Other acidosis; R56.9 Unspecified convulsions; G40.909 Epilepsy, unspecified, not intractable, without status epilepticus; E86.0 Dehydration; Y90.8 Blood alcohol level of 240 mg/100 ml or more; Z79.899 Other long term (current) drug therapy
CPT/HCPCS: 36415; 80048; 80053; 80307; 82803; 83690; 84702; 85025; 85027; 93005; 99285; J1953; J2405; J2560; J3360; J3411; J3475; J7120; S9485

== ENCOUNTER → 2025-09-12 05:10 | Outpatient (BNV) | payer OTHER, SELFPAY | PROVIDERS: Admitting Provider Nurse Practitioner Acute Care; Emergency Provider Emergency Medicine; PCP Family Medicine; Visit Provider Internal Medicine Cardiovascular Disease | DX: R00.0 Tachycardia, unspecified (principal) | CPT/HCPCS: 93010 ==

== ENCOUNTER → 2025-09-12 08:03 | Outpatient (BNV) | payer OTHER, SELFPAY | PROVIDERS: Admitting Provider Nurse Practitioner Acute Care; Emergency Provider Emergency Medicine; PCP Family Medicine; Visit Provider Internal Medicine | DX: F10.231 Alcohol dependence with withdrawal delirium (principal) | CPT/HCPCS: 99222; 99239 ==

== ENCOUNTER 2025-10-11 21:53 | Emergency (ER) | payer OTHER, SELFPAY ==
[2025-10-11 22:18] VITALS: BP 127/72; PULSE 115; RESP 20; TEMP 36.9; O2SAT 97; BMI 19.1
--- OUTSIDE RECORDS SUMMARY | 2025-10-11 23:51 | XMS_ITS | Encounter Summary ---
Author Organization [facility] [place] [address] Care Team Providers Care Clinic Cma Name Role Phone Rupert Flores MD Primary Care Pr ovider Encounter Details Date Type Department Care Team (Late st Contact Info) Description 09/23/2025 Results Follow-Up Adult Medicine [address] [phone] Rupert Flores MD [address] [place] [address] Social History Tobacco Use Types Packs/Day Years [...] Date Recorded What is your living situation? Unrecognized valu e 11/28/2024 Comments No Sex and Gender Information Value Date Recorded Sex Assigned at Female 10/05/2025 12:03 PM EST Legal Sex Female 2:43 PM EST Gender Identity Female 10/05/2025 12:03 PM EST Sexual Orientation Straight 10/05/2025 12 :03 PM EST documented as of this encounter Plan of Treatment Upcoming Encounters Date Type Department Care Team (Late st Contact Info) Description 11/02/2025 1:00 PM EST Office Visit Adult Medicine [facility] [address] [place] [address] Elvis Livingston NP [address] [place] [address] 11/06/2025 1:00 PM EST Office Visit [facility] Hematology Oncology [address] [place] [phone] Fransisca Jovel, [address] [place] [address] 01/01/2026 9:00 AM EST Consult [facility] [address] [facility] [address] [place] [phone] So Malcolm MD [address] [place] [address] documented as of this encounter Visit Diagnoses Not on filedocumented in this encounter Additional Health Concerns Assessment Noted Time PHQ-9 Depression Total Score: 2 11/28/19 25 12:17 PM EST documented as of this encounter Care Teams Clinic Cma Relationship Specialty Start Date End Date Rupert Flores MD [address] [facility], [place] PCP - General Internal Medicine 05/17/22 documented as of this encounter
--- OUTSIDE RECORDS SUMMARY | 2025-10-11 23:51 | XMS_ITS | Clinical Summary ---
Author Organization [facility] Address [address] [place] [address] Care Team Providers Care Hydraulic Operator Name Role Phone Rupert Flores MD Primary Care Pr ovider Allergies Active Allergy Reactions Criticality Noted Date Comments Cat Dander Itching 05/17/2014 Dog Dander Itching 05/17/2014 Other Itching 05/17/2014 seasonal Medications folic acid (FOLVITE) 1 mg tablet Take 1 Tablet by mouth daily. 07/12/20 24 Active potassium chloride (MICRO-K) 10 mEq CR capsuleIndicati ons:Hypokalemia Take 1 capsule (10 mEq total) by mouth 1 (one) time each day. 90 capsule 1 04/09/20 25 Active One Daily Multivitamin tablet TAKE 1 TABLET BY MOUTH EVERY DAY 90 tablet 1 05/02/20 25 Active meloxicam (MOBIC) 15 mg tablet Take 1 tablet (15 mg total) by mouth 1 (one) time each day if needed for mild pain or moderate pain. 30 tablet 2 09/05/20 25 Active busPIRone (BUSPAR) 10 mg tabletIndicatio ns:Anxiety and depression Take 1 tablet (10 mg total) by mouth 2 (two) times a day. 180 each 1 09/20/20 25 2025 Active gabapentin (NEURONTIN) 100 mg capsuleIndicati ons:Anxiety and depression Take 2 capsules (200 mg total) by mouth 3 (three) times a day. 270 capsule 1 09/20/20 25 Active topiramate (TOPAMAX) 25 mg tabletIndicatio ns:Chronic migraine without aura without status migrainosus, not intractable Take 1 tablet (25 mg total) by mouth at bedtime. 90 each 1 09/20/20 25 2025 Active QUEtiapine (SEROquel) 50 mg tabletIndicatio ns:Anxiety and depression,Prim smith insomnia Take 1 tablet (50 mg total) by mouth at bedtime. 90 tablet 1 09/20/20 Active omeprazole (PriLOSEC) [address] capsuleIndicati ons:Duodenitis without bleeding Take 1 capsule (20 mg total) by mouth 1 (one) time each day. 90 each 1 09/20/20 25 2025 Active naltrexone (DEPADE) 50 mg tabletIndicatio ns:Alcohol use disorder Take 1 tablet (50 mg total) by mouth 1 (one) time each day. 90 each 1 09/20/20 25 2025 Active magnesium oxide (MAG-OX) 400 mg (241.3 elemental magnesium) tabletIndicatio ns:Hypomagnesem ia Take 1 tablet (400 mg total) by mouth 2 (two) times a day. 180 each 1 09/20/20 25 2025 Active levETIRAcetam (KEPPRA) 1,000 mg tabletIndicatio ns:Seizure disorder (CMS/HCC V24, CMS/HCC V28) Take 1 tablet (1,000 mg total) by mouth 2 (two) times a day. 180 each 09/20/20 25 2025 Active atomoxetine (STRATTERA) 40 mg capsule Take 1 capsule (40 mg total) by mouth 1 (one) time each day. Swallow capsule whole; do not open. If opened accidentally, do not touch eyes; wash hands immediately (product is an eye irritant). 30 each 10/05/20 25 2025 Active levETIRAcetam (KEPPRA) 1,000 mg tabletIndicatio ns:Seizure disorder (CMS/HCC V24, CMS/HCC V28) Take 1 tablet (1,000 mg total) by mouth 2 (two) times a day. 04/01/20 25 2024 Discontinued(R eorder) magnesium oxide (MAG-OX) 400 mg (241.3 elemental magnesium) tabletIndicatio ns:Hypomagnesem ia Take 1 tablet (400 mg total) by mouth 2 (two) times a day. 180 each 1 04/09/20 25 2024 Discontinued(R eorder) naltrexone (DEPADE) 50 mg tabletIndicatio ns:Alcohol abuse Take 1 tablet (50 mg total) by mouth 1 (one) time each day. 90 each 1 04/09/20 25 2024 Discontinued(R eorder) omeprazole (PriLOSEC) [address] capsuleIndicati ons:Duodenitis without bleeding Take 1 capsule (20 mg total) by mouth 1 (one) time each day. 90 each 1 04/09/20 25 2024 Discontinued(R eorder) topiramate (TOPAMAX) 25 mg tablet Take 1 tablet (25 mg total) by mouth at bedtime. 90 each 04/09/20 25 2024 Discontinued(R eorder) QUEtiapine (SEROquel) 50 mg tablet TAKE 1 TABLET BY MOUTH EVERYDAY AT BEDTIME 90 tablet 07/13/20 25 2024 Discontinued(R eorder) gabapentin (NEURONTIN) 100 mg capsuleIndicati ons:Anxiety and depression,Alco hol abuse Take 1 capsule (100 mg total) by mouth 3 (three) times a day. 270 capsule 1 07/30/20 25 2024 Discontinued(R eorder) busPIRone (BUSPAR) 7.5 mg tablet Take 1 tablet (7.5 mg total) by mouth 2 (two) times a day. 60 each 2 09/05/20 25 2024 Discontinued Active Problems Problem Noted Date Diagnosed Date Hypocalcemia 09/20/2025 Assessment & Plan (09/20/2025 1:40 PM EST): Will check vitamin D. She is pending CMP from previous visit Orders: Vitamin D 25 hydroxy; Future Chronic bilateral low back pain 09/05/2025 C. difficile diarrhea 04/09/2025 Assessment & Plan [...] Nephrology; Future Hypomagnesemia 04/09/2025 Assessment & Plan (09/20/2025 1:40 PM EST): Continue magnesium BID Orders: magnesium oxide (MAG-OX) 400 mg (241.3 elemental magnesium) tablet; Take 1 tablet (400 mg total) by mouth 2 (two) times a day. Assessment & Plan (04/09/2025 2:20 PM EDT): [...] by mouth 1 (one) time each day. pymiruzvicld-fbai-khzfvxlr-folic acid (THERAPEUTIC-M) 27-0.4 mg tablet; Take 1 tablet by mouth 1 (one) time each day. Comprehensive metabolic panel; Future Elevated liver enzymes 04/09/2025 Assessment & Plan (04/09/2025 2:20 PM EDT): Related to alcohol use. Will update CMP Orders: CBC and differential; Future Chronic migraine without aur a without status migrainosus, not intractable 07/12/2024 Assessment & Plan (09/20/2025 1:40 PM EST): Continue topiramte Orders: topiramate (TOPAMAX) 25 mg tablet; Take 1 tablet (25 mg total) by mouth at bedtime. Assessment & Plan (04/09/2025 2:20 PM EDT): Topiramate is on hold for now pending labs that show resolution of hyponatremia Duodenitis determined by biopsy 07/12/2024 Fatty liver 07/12/2024 Seizure disorder 07/12/2024 Assessment & Plan (09/20/2025 1:40 PM EST): Continue keppra 1000 mg BID Has appt with neurology on November 06 at [facility]. No showed to appt with neurologist at [place] in September Orders: levETIRAcetam (KEPPRA) 1,000 mg tablet; Take 1 tablet (1,000 mg total) by mouth 2 (two) times a day. Assessment & Plan (04/09/2025 2:20 PM EDT): Referred to neurology, she will also contact with [facility] neurology to schedule an appointment. Continue Keppra 1000mg twice daily Orders: Ambulatory referral to Neurology; Future Glaucoma 02/03/2023 Subclinical hypothyroidism 02/03/2023 Insomnia 09/22/2021 Assessment & Plan (09/20/2025 1:40 PM EST): Continue seroquel Orders: QUEtiapine (SEROquel) 50 mg tablet; Take 1 tablet (50 mg total) by mouth at bedtime. Assessment & Plan (04/09/2025 2:20 PM EDT): Poorly controlled since she has been off the Seroquel. If the sodium level is back to normal this will be sent Alcohol use disorder 02/22/2019 Overview (09/05/2024): Detox 02/17 [place] Assessment & Plan (09/20/2025 1:40 PM EST): Continue naltrexone daily increase gabapentin to 200mg TID Orders: naltrexone (DEPADE) 50 mg tablet; Take 1 tablet (50 mg total) by mouth 1 (one) time each day. Assessment & Plan (04/09/2025 2:20 PM EDT): Continue naltrexone and gabapentin 100 mg 3 times daily Orders: naltrexone (DEPADE) 50 mg tablet; Take 1 tablet (50 mg total) by mouth 1 (one) time each day. Hemoglobin A1c; Future Anxiety and depression 02/22/2019 Assessment & Plan (09/20/2025 1:40 PM EST): Will increase buspar to 10mg BID for better control of anxiety and increase gabapentin to 200mg TID Continue seroquel 50mg nightly Orders: busPIRone (BUSPAR) 10 mg tablet; Take 1 tablet (10 mg total) by mouth 2 (two) times a day. gabapentin (NEURONTIN) 100 mg capsule; Take 2 capsules (200 mg total) by mouth 3 (three) times a day. QUEtiapine (SEROquel) 50 mg tablet; Take 1 tablet (50 mg total) by mouth at bedtime. Ambulatory referral to Psychiatry; Future Assessment & Plan (04/09/2025 2:20 PM EDT): Sertraline, Seroquel and hydroxyzine were discontinued in the hospital She is interested in resuming Seroquel. Advised that this can be send pending repeat sodium testing She is provided with behavioral health resources and is advised that she can walk into [facility] today to establish care with a psychiatrist Continues to be followed by both a psychiatrist and a therapist. States that she may have an appointment at [facility] but she is unsure We will [...] 09/04/2010 Attention deficit hyperactivity disorder (ADHD) 12/29/2005 Assessment & Plan (09/20/2025 1:40 PM EST): Referred to [facility] Orders: Ambulatory referral to Psychiatry; Future Resolved Problems Problem Noted Date Diagnosed Date Resolved Date Thrombocytosis 09/05/2025 09/20/2025 Thrombocytopenia 04/09/2025 09/05/2025 Assessment & Plan (04/09/2025 2:20 PM EDT): Likely related to alcohol use. Will repeat CBC Orders: CBC and differential; Future Encounters Date Type Department Care Team Description 10/05/2025 1:00 PM EST Office Visit Adult [address] [phone] Elvis Livingston NP Attention deficit hyperactivity disorder (ADHD), predominantly inattentive type (Primary Dx); Anxiety and depression; Alcohol use disorder; Insomnia, unspecified type 09/23/2025 Results Follow-Up [address] [phone] Rupert Flores MD 09/20/2025 1:30 PM EST Lab Draw [address] Hypocalcemia; Normocytic anemia; Hypomagnesemia; Thrombocytosis; Hyponatremia; Alcohol abuse; Annual physical exam 09/20/2025 1:00 PM EST Office Visit [address] [phone] Rupert Flores MD Hospital discharge follow-up (Primary Dx); Alcohol use disorder; Anxiety and depression; Seizure disorder (CMS/HCC V24, CMS/HCC V28); Normocytic anemia; Hypocalcemia; Duodenitis without bleeding; Hypomagnesemia; Primary insomnia; Chronic migraine without aura without status migrainosus, not intractable; Attention deficit hyperactivity disorder (ADHD), predominantly inattentive type; Cervical cancer screening 09/05/2025 3:00 PM EST Office Visit Adult [address] [place] [phone] Smita Rabago PA Anxiety and depression (Primary Dx); Attention deficit hyperactivity disorder (ADHD), unspecified ADHD type; Alcohol use disorder; Hypokalemia; Hypomagnesemia; Seizure disorder (CMS/HCC V24, CMS/HCC V28); Thrombocytosis; Chronic bilateral low back pain, unspecified whether sciatica present; Scoliosis, unspecified scoliosis type, unspecified spinal region from Last 3 Months Immunizations Immunization Administration Dates Next Due DTP 10/22/1994, 2,04/04/1991,1990,1990 [id number]-[id number] (Pentacel) 2mo to less than 5yo 01/08/1992,04/04/1991,02/01/1991,1990 HPV, Quadrivalent 11/29/2019,05/17/2014,08/31/20 08 Hepatitis B (Pjlljto-X-Nqtfi , Recombivax HB-Adult) 19yo and older 01/25/2003,08/10/2002 [...] Left PROCEDURE: HISTORICAL CATARACT REMOVAL ESOPHAGOGASTRODUODENOSCOPY PROCEDURE: MS ESOPHAGOGASTRODUODENOSCOPY TRANSORAL DIAGNOSTIC; COMMENT: Grade D esophagitis [...] disorder (CMS/HCC V2 4, CMS/HCC V28) 07/12/2024 Thrombocytosis 09/05/2025 Family History Medical History Relation Name Comments [...] Orientation Straight 10/05/2025 12 :03 PM EST Last Filed Vital Signs Vital Sign Reading Time Taken Comments Blood Pressure 131/79 10/05/2025 1:03 PM EST Pulse 109 10/05/2025 1:03 PM EST Temperature 36.7 C (98.1 F) 09/20/2025 12:46 PM EST Respiratory Rate 14 09/20/2025 12:46 PM EST Oxygen Saturation 96% 11/28/2024 12:15 PM EST Inhaled Oxygen Concentration - - Weight 54.9 kg (121 lb) 09/20/2025 12:46 PM EST Height 166.4 cm (5' 5.5 ) 09/20/2025 12:46 PM ES T Body Mass Index 19.83 09/20/2025 12:46 PM EST Plan of Treatment Upcoming Encounters Date Type Department Care Team (Late st Contact Info) Description 11/02/2025 1:00 PM EST Office Visit Adult Medicine [facility] [address] [place] [phone] Elvis Livingston NP [address] [place] [address] 11/06/2025 1:00 PM EST Office Visit [facility] Hematology Oncology [address] [place] [phone] Fransisca Jovel DO [address] [place] [address] 01/01/2026 9:00 AM EST Consult [facility] [address] [facility] [address] [place] [phone] So Malcolm MD [address] [place] [address] Health Maintenance Due Date Last Done Comments Cervical Cancer Screening: HPV 11/29/2024 11/29/2019 Social Influencers of Health Screening 11/28/2025 11/28/2024 Cholesterol Screening (Lipid Panel) 07/12/2029 07/12/2024, 07/12/2024 DTaP,Tdap,and Td Vaccines (10 - Td or Tdap) 08/04/2030 08/04/2020, 04/11/2013, 08/10/2002, Additional history exists RSV Immunization Adult Patients (1 - 1-dose 75+ series) 2065 HIB Vaccines Completed 01/08/1992, 01/1991, 02/01/1991, Additional [...] Completed 11/29/2019, 05/01, 08/31/2008 Depression Screening Completed 10/05/2025, 07/12/20 24 COVID-19 Vaccine Discontinued Hepatitis A Vaccines Discontinued Influenza Vaccine Discontinued Meningococcal ACWY Vaccine Aged Out N o longer eligible based on patient's age to complete this topic Meningococcal B Vaccine Aged Out No l onger eligible based on patient's age to complete this topic Pneumococcal Vaccine: Pediatrics (0 to 5 Years) and At-Risk Patients (6 to 49 Years) Discontinued RSV Immunization Patients Under 20 months Aged Out No longer eligible based on patient's age to complete this topic Procedures Procedure Name Priority Date/Time Associated Diagnosis Comments CBC WITH AUTO DIFFERENTIAL Routine 09/20/2025 1:45 PM EST Thrombocytosis THYROID STIMULATING HORMONE WITH REFLEX TO FREE T4 AND FREE T3 Routine 09/20/2025 1:45 PM EST Annual physical exam HEMOGLOBIN A1C Routine 09/20/2025 1:45 PM EST Alcohol abuse SODIUM Routine 09/20/2025 1:45 PM EST Hyponatremia CBC AND DIFFERENTIAL Routine 09/20/2025 1:45 PM EST Thrombocytosis MAGNESIUM Routine 09/20/2025 1:45 PM EST Hypomagnesemia FERRITIN Routine 09/20/2025 1:45 PM EST Normocytic anemia IRON AND TIBC Routine 09/20/2025 1:45 PM EST Normocytic anemia VITAMIN B12 Routine 09/20/2025 1:45 PM EST Normocytic anemia VITAMIN D 25 HYDROXY Routine 09/20/2025 1:45 PM EST Hypocalcemia HM DEPRESSION SCREENING Routine 07/12/2024 LIPID PANEL Routine 07/12/2024 HM HPV Routine 11/29/2019 HM HEPATITIS C SCREENING Routine 03/06/2015 HM HIV SCREENING Routine 03/06/2015 from Last 3 Months or Most Recently Relevant to Health Maintenance Results * Thyroid stimulating hormone with reflex to free t4 and free t3 (09/20/2025 1:45 PM EST) [facility] TSH 0.98 0.40 - 4.00 mcIU/mL 09/20/2025 4:47 PM [facility] Blood Venous blood specimen / Unknown Venipuncture / Unknown 09/20/2025 1:45 PM EST 09/20/2025 1:45 PM EST us Smita HALL LAB BLOOD ORDERABLES Final Re sult [facility] [address] [place] [address], * (ABNORMAL) CBC auto differential (09/20/2025 1:45 PM EST) [facility] WBC 5.5 4.8 - 10.8 K/mcL LAB HEMETOLOGY METHOD 09/20/2025 4:33 PM [facility] RBC 4.10 3.80 - 4.80 M/mcL LAB HEMETOLOGY METHOD 09/20/2025 4:33 PM [facility] Hemoglobin 11.3(L) 11.5 - 16.0 g/dL LAB HEMETOLOGY METHOD 09/20/2025 4:33 PM [facility] Hematocrit 36.7 35.0 - 47.0 % LAB HEMETOLOGY METHOD 09/20/2025 4:33 PM [facility] MCV 90.4 79.0 - 98.0 FL LAB HEMETOLOGY METHOD 09/20/2025 4:33 PM [facility] MCH 27.8 27.0 - 32.0 pcg LAB HEMETOLOGY METHOD 09/20/2025 4:33 PM [facility] MCHC 30.8(L) 32.0 - 37.0 g/dL LAB HEMETOLOGY METHOD 09/20/2025 4:33 PM [facility] RDW 16.6(H) 11.0 - 15.0 % LAB HEMETOLOGY METHOD 09/20/2025 4:33 PM [facility] Platelets 315 130 - 400 K/mcL LAB HEMETOLOGY METHOD 09/20/2025 4:33 PM [facility] MPV 10.0 7.0 - 11.0 FL LAB HEMETOLOGY METHOD 09/20/2025 4:33 PM [facility] NRBC 0.0 <1.0 % LAB HEMETOLOGY METHOD 09/20/2025 4:33 PM [facility] NRBC Absolute 0.00 <0.10 K/mcL LAB HEMETOLOGY METHOD 09/20/2025 4:33 PM [facility] Neutrophils Relative 34.4 % LAB HEMETOLOGY METHOD 09/20/2025 4:33 PM [facility] Lymphocytes Relative 41.0 % LAB HEMETOLOGY METHOD 09/20/2025 4:33 PM [facility] Monocytes Relative 17.0 % LAB HEMETOLOGY METHOD 09/20/2025 4:33 PM [facility] Eosinophils Relative 6.5 % LAB HEMETOLOGY METHOD 09/20/2025 4:33 PM [facility] Basophils Relative 0.9 % LAB HEMETOLOGY METHOD 09/20/2025 4:33 PM [facility] Immature Granulocytes Relative 0.2 % LAB HEMETOLOGY METHOD 09/20/2025 4:33 PM [facility] Neutrophils Absolute 1.91 1.50 - 7.00 K/mcL LAB HEMETOLOGY METHOD 09/20/2025 4:33 PM [facility] Lymphocytes Absolute 2.27 1.00 - 5.00 K/mcL LAB HEMETOLOGY METHOD 09/20/2025 4:33 PM EST [facility] Monocytes Absolute 0.94 0.20 - 1.00 K/mcL LAB HEMETOLOGY METHOD 09/20/2025 4:33 PM EST [facility] Eosinophils Absolute 0.36 0.00 - 0.50 K/mcL LAB HEMETOLOGY METHOD 09/20/2025 4:33 PM EST [facility] Basophils Absolute 0.05 0.00 - 0.20 K/mcL LAB HEMETOLOGY METHOD 09/20/2025 4:33 PM EST [facility] Immature Granulocytes Absolute 0.01 0.00 - 0.03 K/mcL LAB HEMETOLOGY METHOD 09/20/2025 4:33 PM [facility] Blood Venous blood specimen / Unknown Venipuncture / Unknown 09/20/2025 1:45 PM EST 09/20/2025 1:45 PM EST Rupert Flores MD LAB BLOOD ORDERA BLES Final Result [facility] [address] [place] [address], [place] [phone] * Iron and TIBC (09/20/2025 1:45 PM EST) Iron 84 40 - 150 mcg/dL 09/20/2025 4:56 PM EST [facility] TIBC 303 250 - 450 mcg/dL 09/20/2025 4:56 PM EST [facility] Iron Saturation 28 15 - 50 % 4:56 PM EST [facility] Blood Venous blood specimen / Unknown Venipuncture / Unknown 09/20/2025 1:45 PM EST 09/20/2025 1:45 PM EST Rupert Flores MD LAB BLOOD ORDERA BLES Final Result Performing Organization Address [facility]/ZIP Co de Phone Number [facility] [address] [place] [address], * Vitamin D 25 hydroxy (09/20/2025 1:45 PM EST) Vit D, 25-Hydroxy 30.3 30.0 - 80.0 ng/mL 09/20/2025 4:47 PM EST [facility] Blood Venous blood specimen / Unknown Venipuncture / Unknown 09/20/2025 1:45 PM EST 09/20/2025 1:45 PM EST Rupert Flores MD LAB BLOOD ORDERA BLES Final Result Performing Organization Address [facility]/ZIP Co de Phone Number [facility] [address] [place] [address], [place] [phone] * Sodium (09/20/2025 1:45 PM EST) Pathologist [facility] Sodium 138 133 - 145 mmol/L 09/20/2025 4:47 PM EST [facility] Blood Venous blood specimen / Unknown Venipuncture / Unknown 09/20/2025 1:45 PM EST 09/20/2025 1:45 PM EST Rupert Flores MD LAB BLOOD ORDERA BLES Final Result Performing Organization Address City/[facility]/ZIP Co de Phone Number [facility] [address] [place] [address], [place] [phone] * (ABNORMAL) Magnesium (09/20/2025 1:45 PM EST) Magnesium 1.7(L) 1.9 - 2.6 mg/dL 09/20/2025 4:54 PM EST [facility] Blood Venous blood specimen / Unknown Venipuncture / Unknown 09/20/2025 1:45 PM EST 09/20/2025 1:45 PM EST Rupert Flores MD LAB BLOOD ORDERA BLES Final Result Performing Organization Address City/[facility]/ZIP Co de Phone Number [facility] [address] [place] [address], [place] [phone] * Hemoglobin A1c (09/20/2025 1:45 PM EST) Pathologist [facility] Hemoglobin A1C 4.7 <6.5 % LAB CHEMISTRY METHOD 09/20/2025 9:19 PM EST [facility] Mean Bld Glu Estim. 88 mg/dL LAB CHEMISTRY METHOD 09/20/2025 9:19 PM EST [facility] Blood Venous blood specimen / Unknown Venipuncture / Unknown 09/20/2025 1:45 PM EST 09/20/2025 1:45 PM EST us Rupert Flores MD LAB BLOOD ORDERA BLES Final Result Performing Organization Address [facility]/ZIP Co de Phone Number [facility] [address] [place] [address], [place] [phone] * Ferritin (09/20/2025 1:45 PM EST) Pathologist [facility] Ferritin 60 7 - 271 ng/mL 09/20/2025 7:37 PM EST [facility] Blood Venous blood specimen / Unknown Venipuncture / Unknown 09/20/2025 1:45 PM EST 09/20/2025 1:45 PM EST Rupert Flores MD LAB BLOOD ORDERA BLES Final Result Performing Organization Address City/[facility]/ZIP Co de Phone Number [facility] [address] [place] [address], [place] [phone] * Vitamin B12 (09/20/2025 1:45 PM EST) [facility] Vitamin B-12 559 211 - 911 pcg/mL 09/20/2025 4:56 PM EST [facility] Blood Venous blood specimen / Unknown Venipuncture / Unknown 09/20/2025 1:45 PM EST 09/20/2025 1:45 PM EST Rupert Flores MD LAB BLOOD ORDERA BLES Final Result [facility] [address] [place] [address], [place] [phone] * Depression Screening (07/12/2024) [facility] Depression Screening abstracted [facility] Provider HEALTH MAINTENANCE Final Result * Lipid panel (07/12/2024) [facility] LDL/HDL Ratio 2 0 - 4 Triglycerides 65 0 - 150 mg/dL Cholesterol 166 0 - 200 mg/dL HDL 72 >=40 mg/dL LDL Cholesterol 81 0 - 100 mg/dL Blood Venous blood specimen / Unknown Historical Simon GONZALE[facility] LAB BLOOD ORDERABLES Mel l Result * Cervical Cancer Screening: HPV (11/29/2019) [facility] Cervical Cancer Screening: HPV no interpretation , abstracted Historical Provider HEALTH MAINTENANCE Final Result * HIV Screening (03/06/2015) [facility] HIV Screening abstracted [facility] Provider HEALTH MAINTENANCE Final Result * Hepatitis C Screening (03/06/2015) [facility] Hepatitis C Screening abstracted [facility] Simon GONZALEZ HEALTH MAINTENANCE Final Result from Last 3 Months or Most Recently Relevant to Health Maintenance Insurance [facility] [employer] [facility] Care Teams Hydraulic Operator Relationship Specialty Start Date End Date Rupert Flores MD [address] [place], [place] PCP - General Internal Medicine 05/17/22
--- NOTE | 2025-10-12 00:08 | PC.NURSE ---
late entry: Pt upset/anxious about not being brought back after triage even with explanations. Pt stated she was not waiting. Pt LWBS @ [id number]
== END 2025-10-12 00:11 | disposition left against medical advice (07) ==
PROVIDERS: Emergency Provider Emergency Medicine
DX: R06.02 Shortness of breath (principal)
CPT/HCPCS: 99281

== ENCOUNTER 2025-10-12 09:06 | Emergency (ER) | payer OTHER, SELFPAY ==
[2025-10-12 09:29] VITALS: BP 125/88; PULSE 128; RESP 18; TEMP 36.9; O2SAT 98; BMI 19.2
--- NOTE | 2025-10-12 09:32 | ED.GENADULT ---
HPI - General Adult General Chief complaint: Skin/Abscess/Foreign Body Stated complaint: Dental Pain Time Seen by Provider: 10/12/25 10:04 Source: patient, RN notes reviewed and old records reviewed Mode of arrival: ambulatory Limitations: no limitations History of Present Illness ED Provider: Aiden HPI narrative: Patient is a 35-year-old female presenting to the emergency department with complaint of inability to remove piercing from her right upper lip for several days. States that she recently had the area repairs to around 1 month ago. She then had the jewelry changed to a smaller piercing a week ago and has since been unable to remove the piercing, states that the skin on the inside of her upper lip is covering the back of the piercing. Denies any fevers, chills, body aches, purulent drainage. Went to a [facility] but was told they were unable to remove it as well. MD complaint: piercing stuck Onset (ago): day(s) Related Data Home Medications ?Medication ?Instructions ?Recorded ?Confirmed omeprazole 20 mg capsule,delayed 20 mg PO DAILY@0630 03/28/25 09/12/25 release multivitamin-iron 9 mg-folic acid 1 tab PO DAILY 05/22/25 09/12/25 400 mcg-calcium and minerals tablet (Therapeutic-M) potassium chloride 10 mEq 10 meq PO DAILY 05/22/25 09/12/25 capsule,extended release buspirone 5 mg tablet 5 mg PO BID 07/07/25 09/12/25 quetiapine 50 mg tablet 50 mg PO BEDTIME 07/07/25 09/12/25 gabapentin 100 mg capsule 100 mg PO TID 09/12/25 09/12/25 meloxicam 15 mg tablet 15 mg PO DAILY 09/12/25 09/12/25 multivitamin (One Daily 1 tab PO DAILY 09/12/25 09/12/25 Multivitamin tablet) topiramate 25 mg tablet 25 mg PO BEDTIME 09/12/25 09/12/25 Previous Rx's ?Medication ?Instructions ?Recorded folic acid 1 mg tablet 1 mg PO DAILY #30 tabs 05/24/23 thiamine mononitrate (vit B1) 100 100 mg PO DAILY #30 tabs 01/26/25 mg tablet naltrexone 50 mg tablet 50 mg PO DAILY #30 tabs 04/01/25 levetiracetam 1,000 mg tablet 1,000 mg PO BID #180 tabs 07/09/25 magnesium oxide 400 mg (241.3 mg 400 mg PO BID #14 tabs 07/09/25 magnesium) tablet chlorhexidine gluconate 0.12 % 15 ml buccal BID #118 mL 10/12/25 mouthwash clindamycin HCl 150 mg capsule 300 mg (2 x 150 mg) PO TID 7 days 10/12/25 (Cleocin HCl) #42 caps mupirocin 2 % topical ointment 1 appl topical BID 7 days #15 grams 10/12/25 (Centany) Allergies Allergy/AdvReac Type Severity Reaction Status Date / Time cat dander AdvReac Itching Verified 10/12/25 09:31 dog dander AdvReac Itching Verified 10/12/25 09:31 Iodinated Contrast Media AdvReac Hives Verified 10/12/25 09:31 (Contrast Dye) Review of Systems Review of Systems: as per hpi Yes all other systems are reviewed and are negative Constitutional: Constitutional: Reports as per HPI PMFSH Past Medical History Medical History (Updated 10/12/25 @ 10:19 by Essence Wolfe NP) Alcohol use disorder, severe, dependence Epileptic seizure Withdrawal seizures Depression Social History Social History Household Members: Family Household Members Other:: Currently lives with parents Housing: House Do you presently have visiting nurse or other home services: No Alcohol intake: current Alcohol intake frequency: 3 or more drinks per day Alcohol type: hard liquor Comment: pt refused bed alarm Patient Tobacco Use Status: Tobacco use Unknown Tobacco use type: Smokeless Tobacco e-Cigarette/Vaping Use: Currently Using Substance Use Type: Crack/Cocaine Advance Directives: No Advance Directives Information Provided: No service: No Physical Exam ED Vital Signs: Vital Signs - 24 hr 10/12/25 09:29 Temperature 98.4 F Pulse Rate 128 H Respiratory Rate 18 Blood Pressure 125/88 Pulse Oximetry 98 Oxygen Delivery Method Room Air BMI result Body Mass Index 19.2 Vital signs have been reviewed and appear to be correct. Blood pressure normal. Heart rate tachycardic. Respiratory rate normal. Temperature normal. Oxygen saturation normal. Const General: cooperative, healthy appearing and no acute distress Orientation/consciousness: oriented to person, oriented to place, oriented to time and patient oriented x3 Limitations: no limitations HENMT Head: Yes normocephalic and Yes atraumatic Ears: external ears normal General nose exam: Normal external nose present Face and sinus: Yes face symmetric Face images:  1. piercing with surrounding erythema no drainage, piercing palpable but not visible Mouth: lip normal, tongue normal, oropharynx normal, moist mucous membranes, no audible dysphonia, no drooling, Abnormal oral and palatal mucosa present ulceration (several apthous ulcers surrounding piercing on upper right lip mucosa), no trismus and other (Unable to visualize back of piercing on inner upper lip due to edema) Teeth and gingiva: dentition normal Throat: Yes uvula midline Eyes Pupils: Equal, round and reactive pupils present Neck Neck: Yes normal visual inspection and Yes supple Resp Effort & Inspection: normal respiratory effort and able to speak in complete sentences Auscultation: clear to auscultation bilaterally Cardio Rate: regular rate Rhythm: regular rhythm Heart sounds: S1 normal heart sound present and S2 normal heart sound present GI Palpation (GI): Soft to palpation and nontender Auscultation: normoactive bowel sounds General: Yes no CVA tenderness Back/Spine/Pelvis Back: no CVA tenderness Skin General skin exam: elasticity normal and turgor normal Neuro General: oriented to person, oriented to place, oriented to time, patient oriented x3, moves all extremities, no focal motor deficits and CN's II-XI intact bilaterally Cranial nerves: Yes Equal, round and reactive pupils present Cognition (Neuro): normal cognition Extrem General: Yes full ROM, Yes no pedal edema and Yes no calf tenderness Psych Mental Status: mental status grossly normal Affect: normal affect Thought process: Normal thought process present Course Course Course Narrative: Rapid medical examination performed in triage by Marilou Kenney PA-C: Patient is a 35 year old assigned female at presenting to the emergency department with a retained foreign body. Patient states that her right facial trejo piercing broke off. Detailed physical exam and review of systems are deferred to the mid level clinician. Patient placed back in the waiting room pending room availability. Medical Decision Making Medical Decision Making MDM Narrative: Patient is a 35-year-old female presenting to the emergency department with complaint of inability to remove piercing from her right upper lip for several days. On exam patient is awake, A+Ox3, VS WNL, afebrile, normal neurological exam without focal deficits, physical exam findings as above. Given reported symptoms and physical exam findings, initial differential includes but is not limited to imbedded piercing, cellulitis of lip, apthous ulcer. Discussed with patient that at this time she requires treatment with a course of antibiotics prior to any when attempting to remove her piercing due to erythema and swelling. Will start patient on clindamycin, mupirocin and chlorhexidine mouthwash. Advised patient to complete this treatment prior to attempting to have the piercing removed. Discussed with patient that she should not continue to attempt the removal of the piercing on her own. Advised to assess the area daily and return for any signs of infection. Patient verbalized understanding of and agreement with plan. Differential Diagnosis Differential Diagnoses: The differential diagnosis associated with the presentation includes as per [facility] Admission/Observation Consideration of admission/observation: Escalation of care including admission/observation considered Patient would have been admitted to the hospital and transferred to appropriate facility had their clinical presentation warranted hospital admission. External Record Review External record reviewed: Inpatient record, Office record and Outpatient record Prescription Management I considered prescription management with: Antibiotic Discharge Plan Discharge Clinical Impression: Cellulitis of skin of lip Patient Disposition: Home, Self-Care Additional Instructions: You were evaluated in the emergency department today for a piercing that you were unable to remove. It is necessary that you were treated with a course of antibiotics prior to anyone attempting to remove the jewelry. You were also being prescribed a topical antibiotic as well as an antibiotic mouthwash. Use all medications as prescribed for the full course even if his symptoms improve. You are being referred to General surgery to discuss removal of the piercing. Assess the area daily and return for increased redness, swelling, thick yellow drainage, fever 100.4 F or greater or any other new or concernging symptoms. Prescriptions: New clindamycin HCl [Cleocin HCl] 150 mg capsule 300 mg PO TID 7 Days Qty: 42 0RF mupirocin [Centany] 2 % ointment 1 appl topical BID 7 Days Qty: 15 0RF Rx Instructions: Apply to outside of upper lip ONLY chlorhexidine gluconate 0.12 % mouthwash 15 ml buccal BID Qty: 118 0RF No Action folic acid 1 mg Tablet 1 mg PO DAILY Qty: 30 0RF multivitamin [One Daily Multivitamin] Tablet 1 tab PO DAILY meloxicam 15 mg tablet 15 mg PO DAILY topiramate 25 mg tablet 25 mg PO BEDTIME gabapentin 100 mg capsule 100 mg PO TID thiamine mononitrate (vit B1) 100 mg Tablet 100 mg PO DAILY Qty: 30 0RF omeprazole 20 mg capsule,delayed release(DR/EC) 20 mg PO DAILY@0630 naltrexone 50 mg Tablet 50 mg PO DAILY Qty: 30 0RF Therapeutic-M 9 mg iron-400 mcg tablet 1 tab PO DAILY potassium chloride 10 mEq capsule, extended release 10 meq PO DAILY buspirone 5 mg tablet 5 mg PO BID quetiapine 50 mg tablet 50 mg PO BEDTIME levetiracetam 1,000 mg Tablet 1,000 mg PO BID Qty: 180 0RF magnesium oxide 400 mg (241.3 mg magnesium) tablet 400 mg PO BID Qty: 14 0RF [place] [facility] [place] Group, General Surgery] - 1 week Referral Note: unable to remove lip piercing Clinical Impression: Cellulitis of skin of lip Print Language: Guyanese
[2025-10-12 10:36] VITALS: BP 118/75; PULSE 89; RESP 18; TEMP 36.9; O2SAT 98
== END 2025-10-12 10:36 | disposition home or self-care (01) ==
PROVIDERS: Emergency Provider Emergency Medicine
DX: K13.0 Diseases of lips (principal); M79.5 Residual foreign body in soft tissue
CPT/HCPCS: 99283